=== PATIENT | female | born 2000 | race Caucasian/White ===

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

== ENCOUNTER 2022-07-29 15:18 | Emergency (ER) | payer BC, SELFPAY ==
[2022-07-29 15:48] VITALS: BP 128/70; PULSE 108; RESP 14; TEMP 36.9; O2SAT 100
--- NOTE | 2022-07-29 16:56 | ED.URI ---
HPI - URI/Sore Throat General Chief Complaint: Upper Respiratory Infection Stated Complaint: Sore Throat/Body Aches Time Seen by Provider: 07/29/22 16:56 Source: patient and RN notes reviewed Mode of arrival: ambulatory Limitations: no limitations History of Present Illness HPI Narrative: 22-year-old female presents with concern for a 2 day history of body aches, sore throat, cough, congestion. She reports she has been around people with similar symptoms. She has taken plain Mucinex without relief. MD elicited complaint: cough and sore throat Related Data Home Medications Medication Instructions Recorded Confirmed norethindrone 1 mg-ethinyl 1 tablet PO DAILY 07/20/20 estradiol 20 mcg (21)-iron 75 mg (7) tablet (Loestrin Fe 09/19 (28-Day)) Allergies Allergy/AdvReac Type Severity Reaction Status Date / Time No Known Allergies Allergy Verified 07/20/20 12:45 Review of Systems Review of Systems: CONSTITUTIONAL: Reports malaise, chills, sweats EYES: Denies visual changes, redness, or discharge. ENT: Reports rhinorrhea, congestion, sore throat. Denies sinus pain, otalgia CARDIOVASCULAR: Denies chest pain, palpitations, or edema. RESPIRATORY: Reports cough. Denies dyspnea. GASTROINTESTINAL: Denies abdominal pain, nausea, vomiting, diarrhea SKIN: Denies rash or itching. MUSCULOSKELETAL: Reports myalgia. NEUROLOGIC: Denies headache. All systems reviewed & are unremarkable except as noted in HPI and below PMFSH Past Medical History Medical History (Updated 07/29/22 @ 17:02 by Silvia Sage NP) Acne Depression Ganglion cyst of dorsum of left wrist Surgical History Surgical History No pertinent past surgical history Family History Family History (Updated 07/20/20 @ 12:48 by Pratibha Marie CMA) Other Breast cancer Father Leukemia Grandparent Cerebrovascular accident Malignant neoplasm of prostate Social History Social History Smoking status: Never smoker Alcohol intake: never Substance use: never Gender identity (if verbalized by the patient): Female Comments At time of signature, agree with nursing past medical, surgical, social and family history. There is no relevant family history pertinent to the presenting complaint Exam Narrative: GENERAL: Well-appearing, well-nourished, and in no acute distress. HEAD: Normocephalic EYES: PERRLA, conjunctivae clear ENT: Nares clear, turbinates edematous and erythematous, clear discharge. Mucous membranes moist. TM pearly reed with dull light reflex bilaterally; no tragal tenderness. Oropharynx not erythematous without lesions. Tonsils not enlarged and without exudate, no drooling, no hoarseness, no trismus, uvula midline. NECK: Supple. No lymphadenopathy CHEST: Clear to auscultation, breath sounds equal. No wheezing, rhonchi, rales, or stridor. No respiratory distress, speaks in full sentences. HEART: Regular rate and rhythm. No murmur heard. SKIN: Warm, dry, no rash. NEURO: Alert and oriented x3. PSYCH: Normal mood and affect Course Course Emergency Course: Patient is aware of diagnosis, understands and agrees to treatment plan. Anticipatory guidance given. Patient agrees to follow-up as directed and is aware of reasons to seek care at the emergency department. Portions of this record may have been created with voice recognition software Level of Care: Express Care Visit Vital Signs Vital signs: Vital Signs Temperature 98.5 F 07/29/22 15:48 Pulse Rate 108 H 07/29/22 15:48 Respiratory Rate 14 07/29/22 15:48 Blood Pressure 128/70 07/29/22 15:48 Pulse Oximetry 100 07/29/22 15:48 Oxygen Delivery Room Air 07/29/22 15:48 Temperature 98.5 F 07/29/22 15:48 Pulse Rate 108 H 07/29/22 15:48 Respiratory Rate 14 07/29/22 15:48 Blood Pressure 128/70 07/29/22 15:48 Pulse Oximetry 1
== END 2022-07-29 17:07 | disposition home or self-care (01) ==
PROVIDERS: Emergency Provider Nurse Practitioner
DX: J11.1 Influenza due to unidentified influenza virus with other respiratory manifestations (principal)
CPT/HCPCS: 87804; 99213; G0463

== ENCOUNTER 2023-10-08 16:40 | Outpatient (CLI) | payer BC, SELFPAY ==
[2023-10-08 16:58] LABS: Hematocrit 37.8 % (35.0-49.0); Hemoglobin 12.4 g/dL (12.0-15.0); Mean Corpuscular HGB Conc 32.8 g/dL (32.0-36.0); Mean Corpuscular Volume 88.3 fL (78.0-102.0); Platelet Count Result 141 K/mm3 (150-420); Red Blood Count 4.28 M/mm3 (4.20-5.40); Red Cell Distribution Width 12.3 % (11.6-14.4); White Blood Count 9.5 K/mm3 (4.8-10.8)
[2023-10-08 17:21] LABS: Band Neutrophils Percent 0 % (0-6); Eosinophils Absolute Manual 0.09 K/mm3 (0.02-0.5); Eosinophils Percent Manual 1 % (1-6); Lymphocytes Absolute Manual 6.36 K/mm3 (1.1-4.5); Lymphocytes Percent Manual 67 % (18-44); Monocytes Absolute Manual 0.66 K/mm3 (0.1-0.90); Monocytes Percent Manual 7 % (3-9); Neutrophils Absolute Manual 2.37 K/mm3 (1.7-7.2); Neutrophils Percent Manual 25 % (46-73); Total Cells Counted 100
[2023-10-08 17:22] LABS: Atypical Lymphocytes Present
[2023-10-08 17:58] LABS: Erythrocyte Sedimentation Rate 10 mm/hr (0-15)
[2023-10-08 18:10] LABS: Alanine Aminotransferase 148 U/L (14-59); Albumin Level 3.8 g/dL (3.4-5.0); Alkaline Phosphatase 73 U/L (46-116); Anion Gap 11 mmol/L (8-16); Aspartate Amino Transferase 58 U/L (15-37); Bilirubin,Total 0.4 mg/dL (0.00-1.00); Blood Urea Nitrogen 13 mg/dL (7-18); Calcium 8.6 mg/dL (8.5-10.1); Carbon Dioxide 27 mmol/L (21-32); Chloride 104 mmol/L (98-108); Estimated Glomerular Filt Rate > 60; Glucose 111 mg/dL (70-99); Lactate Dehydrogenase 238 U/L (81-234); Osmolality Calculated 295 mOsm/kg (285-295); Potassium 4.1 mmol/L (3.5-5.1); Sodium 142 mmol/L (136-145); Total Protein 6.6 g/dL (6.4-8.2)
[2023-10-12 14:36] LABS: EBV Nuclear Ab Antibody <18.00 U/mL (<18.00); EBV Nuclear Ab Interpretation Current (Acute)
== END 2023-10-08 16:41 | disposition home or self-care (01) ==
LOC: CHSLAB 16:42
PROVIDERS: PCP Family Medicine; Visit Provider Family Medicine
DX: R53.83 Other fatigue (principal); J02.9 Acute pharyngitis, unspecified; R59.1 Generalized enlarged lymph nodes
CPT/HCPCS: 36415; 80053; 83615; 85025; 85652; 86664; 86665

== ENCOUNTER 2023-12-04 16:24 | Outpatient (CLI) | payer BC, SELFPAY ==
[2023-12-04 17:04] LABS: Beta HCG Quantitative < 1.00 mIU/mL (0-6)
== END 2023-12-04 16:25 | disposition home or self-care (01) ==
LOC: CHSLAB 16:26
PROVIDERS: PCP Family Medicine; Visit Provider Physician Assistant
DX: N91.2 Amenorrhea, unspecified (principal)
CPT/HCPCS: 36415; 84702

== ENCOUNTER 2024-12-12 15:16 | Outpatient (CLI) | payer BC, SELFPAY ==
[2024-12-12 16:19] LABS: Thyroid Stimulating Hormone Reflex 2.93 u/IU/mL (0.36-3.74)
[2024-12-12 16:24] LABS: SPREG INTERNAL CONTROL Positive; Serum Qual hCG Positive
--- OUTSIDE RECORDS SUMMARY | 2024-12-12 17:16 | XMS_ITS | Referral Summary ---
Author Organization [address] Address [address] [place] [address] Care Team Providers Care Rpg Programmer Analyst Name Role Phone No, Physician Primary Care Provider [phone] Allergies No known active allergies Medications No known medications Active Problems No known active problems Social History Tobacco Use Types Packs/Day Years Used Date Smoking Tobacco: Never Smokeless Tobacco: Never Personal Safety Answer Date Recorded Getting School Help Needed Not on file 10/31 Comments Unknown Sex and Gender Information Value Date Recorded Sex Assigned at Not on file Legal Sex Female 3:23 PM CDT Gender Identity Not on file Sexual Orientation Not on file Last Filed Vital Signs Vital Sign Reading Time Taken Comments Blood Pressure 100/64 01/24/2022 8:19 AM CDT Pulse 84 01/24/2022 8:19 AM CDT Temperature 36.8 C (98.2 F) 01/24/2022 8:19 AM CDT Respiratory Rate 17 01/24/2022 8:19 AM CDT Oxygen Saturation 98% 01/24/2022 8:19 AM CDT Inhaled Oxygen Concentration - - Weight 63.5 kg (140 lb) 01/24/2022 8:19 AM CDT Height 177.2 cm (5' 9.75 ) 01/24/2022 8:19 AM CD T Body Mass Index 20.23 01/24/2022 8:19 AM CDT Plan of Treatment Not on file Insurance [employer] OOS [employer] OOS Care Teams Rpg Programmer Analyst Relationship Specialty Start Date End Date No, Physician PCP - General 01/23/22
--- OUTSIDE RECORDS SUMMARY | 2024-12-12 17:16 | XMS_ITS | Clinical Summary ---
Author Organization [address] Address [address] [place] [place] [address] Care Team Providers Care Candy Rolling Machine Operator Name Role Phone No, Physician Primary Care Provider [phone] Allergies No known active allergies Medications No known medications Active Problems No known active problems Surgical History Surgery Date Site/Laterality Comments WRIST SURGERY Right cyst removed Family History Medical History Relation Name Comments Leukemia Father Lung cancer Maternal Grandfather Skin cancer Mother Breast cancer Mother's Sister Prostate cancer Paternal Grandfather Relation Name Status Comments Father Maternal Grandfather Mother Alive Mother's Sister Paternal Grandfather Social History Tobacco Use Types Packs/Day Years Used Date Smoking Tobacco: Never Smokeless Tobacco: Never Personal Safety Answer Date Recorded Getting School Help Needed Not on file 10/31 Comments Unknown Sex and Gender Information Value Date Recorded Sex Assigned at Not on file Legal Sex Female 3:23 PM CDT Gender Identity Not on file Sexual Orientation Not on file Obstetrics History Last Filed Vital Signs Vital Sign Reading [...] 01/24/2022 8:19 AM CDT Plan of Treatment Health Maintenance Due Date Last Done Comments Cervical Cancer Screening 2001 Depression Screening 2001 Hepatitis C Screening 2001 DTaP/Tdap/Td Vaccine (1 - Tdap) 2012 Varicella Vaccines (1 of 2 - 13+ 2-dose series) 2014 HPV Vaccines (1 - 3-dose series) 2016 Meningococcal B Vaccine (1 o f 2 - Standard) 2017 Hepatitis B Screening 2019 Regular Well Visit/Exam 18-64 2019 Influenza Vaccine (#1) 2024 Pneumococcal vaccine <65 Aged Out No longer eligible based on patient's age to complete this topic Insurance [employer] O[employer] O[employer] Care Teams Candy Rolling Machine Operator Relationship Specialty Start Date End Date No, Physician PCP - General 01/23/22
== END 2024-12-12 15:17 | disposition home or self-care (01) ==
LOC: CHSLAB 15:17
PROVIDERS: PCP Family Medicine; Visit Provider Family Medicine
DX: N92.1 Excessive and frequent menstruation with irregular cycle (principal); R11.0 Nausea; Z32.01 Encounter for pregnancy test, result positive
CPT/HCPCS: 36415; 84443; 84702; 84703

== ENCOUNTER 2024-12-14 16:35 | Outpatient (CLI) | payer BC, SELFPAY ==
--- OUTSIDE RECORDS SUMMARY | 2024-12-14 16:55 | XMS_ITS | Clinical Summary ---
Author Organization [address] Address [address] [facility] [place] [address] Care Team Providers Care Leveling Machine Operator Name Role Phone No, Physician Primary Care Provider [phone] Allergies No known active allergies Medications No [...] patient's age to complete this topic Insurance [employer] O[employer] O[employer] Care Teams Leveling Machine Operator Relationship Specialty Start Date End Date No, Physician PCP - General 01/23/22
--- OUTSIDE RECORDS SUMMARY | 2024-12-14 16:55 | XMS_ITS | Referral Summary ---
Author Organization [address] Address [address] [place] [address] Care Team Providers Care Steel Estimator Name Role Phone No, Physician Primary Care Provider [phone] Allergies No known active allergies Medications No [...] Plan of Treatment Not on file Insurance [employer] OOS [employer] OOS Care Teams Steel Estimator Relationship Specialty Start Date End Date No, Physician PCP - General 01/23/22
== END 2024-12-14 16:36 | disposition home or self-care (01) ==
PROVIDERS: PCP Student in an Organized Health Care Education/Training Program; Visit Provider Student in an Organized Health Care Education/Training Program
DX: Z32.01 Encounter for pregnancy test, result positive (principal)
CPT/HCPCS: 36415; 84702

== ENCOUNTER 2025-01-24 09:02 | Emergency (ER) | payer BC, SELFPAY ==
--- NOTE | ~2025-01-24 | US_ITS ---
EXAMINATION: US OB <= 14 weeks fetus DATE: 01/24/2025 11:01 INDICATION: Lower back and lower abdominal cramping TECHNIQUE: Real-time pelvic ultrasound utilizing both a transvaginal and transabdominal probe was pe rformed. The interpreting radiologist was not present for the study. COMPARISON: None. FINDINGS: The uterus measures 14.4 x 6.6 x 6.8 cm. There is an intrauterine gestational sac.A single ras e is identified. The crown rump length measures 3.2 cm, which correlates with an estimated gestationa l age of 10 weeks and 1 days. heart motion is identified measuring 179 beats per minute (bpm) b y M-mode Doppler. The right ovary measures 3.8 x 1.8 x 2.3 cm. The left ovary measures 4.0 x 1.8 x 2.4 cm. Vascular geovanna w including both venous and arterial waveforms is identified in both ovaries on color Doppler. There is no free fluid in the pelvis. IMPRESSION: 1. Single living fetus with heart of 179 bpm. 2. Gestational age by ultrasound of 10 weeks 1 day(s) +/- 6 day(s) with ultrasound estimated date of delivery ([facility]) of 08/21/2025. Reviewed, dictated and finalized at location A. IMPRESSION: 1. Single living fetus with heart of 179 bpm. 2. Gestational age by ultrasound of 10 weeks 1 day(s) +/- 6 day(s) with ultras ound estimated date of delivery ([facility]) of 08/21/2025.
--- OUTSIDE RECORDS SUMMARY | 2025-01-24 09:05 | XMS_ITS | Referral Summary ---
Author Organization [address] Address [address] [place] [address] Care Team Providers Care Latex Spooler Name Role Phone No, Physician Primary Care Provider [phone] Allergies No known active allergies Medications No [...] 8:19 AM CDT Height 177.2 cm (5' 9.75) 01/24/2022 8:19 AM CD T Body Mass Index 20.23 01/24/2022 8:19 AM CDT Plan of Treatment Not on file Insurance [employer] O[employer] O[employer] Care Teams Latex Spooler Relationship Specialty Start Date End Date No, Physician PCP - General 01/23/22
--- OUTSIDE RECORDS SUMMARY | 2025-01-24 09:05 | XMS_ITS | Clinical Summary ---
Author Organization [address] Address [address] [facility] [place] [address] Care Team Providers Care Care Management Specialist Name Role Phone No, Physician Primary Care Provider Allergies No known active allergies Medications No [...] Plan of Treatment Not on file Insurance [employer] ACCESS OOS [employer] ACCESS OOS Care Teams Care Management Specialist Relationship Specialty Start Date End Date No, Physician PCP - General 01/23/22
[2025-01-24 09:11] VITALS: BP 127/73; PULSE 100; RESP 16; TEMP 37.2; O2SAT 100
--- OUTSIDE RECORDS SUMMARY | 2025-01-24 09:46 | XMS_ITS | Referral Summary ---
Author Organization [address] Address [address] [place] [address] Care Team Providers Care Manager Agricultural Name Role Phone No, Physician Primary Care Provider [phone] Allergies No known active allergies Medications No [...] Plan of Treatment Not on file Insurance [employer] Care Teams Manager Agricultural Relationship Specialty Start Date End Date No, Physician PCP - General 01/23/22
--- OUTSIDE RECORDS SUMMARY | 2025-01-24 09:46 | XMS_ITS | Clinical Summary ---
Author Organization [address] Address [address] [facility] [place] [address] Care Team Providers Care Butcher Apprentice Name Role Phone No, Physician Primary Care Provider [phone] Allergies No known active allergies Medications No [...] Plan of Treatment Not on file Insurance [email or web address] ACCESS OOS [email or web address] ACCESS OOS Care Teams Butcher Apprentice Relationship Specialty Start Date End Date No, Physician PCP - General 01/23/22
--- OUTSIDE RECORDS SUMMARY | 2025-01-24 09:46 | XMS_ITS | Data Portability ---
Author Organization [facility] [place] Address [address] [place] [address] Care Team Providers Care Assembler For Puller Over Machine Name Role Phone SHERYL DICKSON Primary Care Provider Assessment Encounter Date Assessment Date Assessment LastModified by Organization Details LastModified Time 01/13/2025 01/13/2025 Annual gynecological exam performed. Patient will come back in a year unless there are new symptoms. Suggest Calcium with Vitamin D if not eating in diet. Patient advised to get annual flu shot. Recommend yearly physicals and preform monthly breast exams. Genetic testing is available for patients with family history of cancer. Engage in safe sexual practices, use condoms. Encouraged to have daily exercise. Avoid tobacco and illicit drugs, moderation of alcohol. If BMI greater than 25 dietary consult advised. If you have any questions please call or email. Not available 01/13/2025 12:37:21 Plan of Treatment Reminders Order Date Submit Date Provider Last Modified By Organization Details Last Modified Time Details Appointments U/S OB FIRST LOOK 2024 10:00A M ULTRASOUND Not available Not available Not available OB NEW 2024 10:45A M JOLIE TOMLINSON MD Not available Not available Not available Lab None record ed. Referral None record ed. Procedures None record ed. Surgeries None record ed. Imaging None record ed. Medication Orders None record ed. Patient TargetsNo targets recorded. Patient InstructionsNo instructions recorded. Reason for Referral None Reported. Results Created Date Observation Date Name Description Value Unit Range Abnormal Flag Note LastModifiedBy Organization Detail LastModifiedTime 01/14/2001/13/2025 US, obste tric, 1st trime ster No observ ation record ed. [email or web address], [place], [address], 01/16/2025 22:51:50 Result Notes None recorded. Problems Name Problem SNOMED Code Status Onset Date Resolution Date Notes Provider Name and Address Organization Details Recorded Time Anxiety 85133358 Active 025 Kristen Ruffin [facility], [facility] 01/13/2025 11:01:06 Problem Notes None recorded. Procedures Surgical History Date Name Laterality Status Provider Name and Address Organization Details Recorded Time 5 Date of Last Pap Smear completed Kristen Ruffin [facility] 01/13/2025 11:01:13 7 operative procedure on wrist completed Kristen Ruffin [facility] 01/13/2025 11:06:02 Imaging Results None recorded. Procedure Notes None recorded. Medical Equipment None Reported. Allergies No known drug allergies Medications Name Sig Start Date Stop Date Status Note LastModified by Organization Details LastModified Time buspirone 5 mg tablet TAKE 1 TO 2 TABLETS BY MOUTH THREE TIMES DAILY NEEDED FOR STRESS 01/13 completed Not Available Not Available Not Available triamcinolo ne acetonide 0.1 % topical cream APPLY TOPICALLY TO THE AFFECTED AREA TWICE DAILY NEEDED FOR IRRITATIO N 01/13 completed Not Available Not Available Not Available nortriptyli ne 10 mg capsule TAKE 1 CAPSULE BY MOUTH EVERY NIGHT AT BEDTIME FOR ABDOMINAL CRAMPS 01/13 completed Not Available Not Available Not Available clindamycin 1 % lotion APPLY TO THE AFFECTED AREA OF THE LEGS ONE TO TWO TIMES DAILY UNTIL CLEAR. THEN USE NEEDED FOR FLARES 01/13 completed Not Available Not Available Not Available Vitals Date Recorded Body height Body mass index (BMI) Body weight Systolic And Diastolic Provider Name and Address Organization Details Last Updated DateTime 01/13/2025 170.18 cm 23.5 kg/m2 69413.86 g 121/78 mm[Hg] Kristen Ruffin [facility] 01/13/2025 11:00:28 Social History Question Answer Notes LastModified by Organizat ion Details LastModified Time Tobacco Smoking Status Never Smoker Kristen Ruffin [facility] 01/13/2025 11:05:22 If You Are , What Was Your Level Of Alcohol Consumption Prior To ? Occasional [email or web address] Information not available 01/13/2025 Are You Blind Or Do You Have Difficulty Seeing? No Information n ot available 01/13/2025 What Is Your Level Of Caffeine Consumption? Occasional [email or web address] Information not available 01/13/2025 In The 14 Days Before Symptom Onset, Have You Had Close Contact With A Laboratory-confirm ed COVID-19 While That Case Was Ill? No [email or web address] Information n ot available 01/13/2025 In The 14 Days Before Symptom Onset, Have You Had Close Contact With A Person Who Is Under Investigation For COVID-19 While That Person Was Ill? No [email or web address] Information not available 01/13/2025 Have You Been To An Area Known To Be High Risk For COVID-19? No [email or web address] Information not available 01/13/2025 Are You Deaf Or Do You Have Serious Difficulty Hearing? No [email or web address] Information not available 01/13/2025 Do You Have Smoke And Carbon Monoxide Detectors In Your Home? Yes [email or web address] Information not available 01/13/2025 Do You Use Sunscreen Routinely? Yes [email or web address] Information not available 01/13/2025 Has Tobacco Cessation Counseling Been Provided? No [email or web address] Information not available 01/13/2025 Have You Used IV Drugs? No [email or web address] Information not available 01/13/2025 Do You Have Difficulty Walking Or Climbing Stairs? No [email or web address] Information not available 01/13/2025 Sex: Unknown Functional Status Question Answer Note LastModified by Organizat ion Details LastModified Time Do you use any illicit or recreational drugs? No [email or web address] Information not available 01/13/2025 Do you or have you ever used any other forms of tobacco or nicotine? Yes [email or web address] Information not available 01/13/2025 What is your level of alcohol consumption? None [email or web address] Information not available 01/13/2025 Are you able to walk? YESWOREST [email or web address] Information not available 01/13/2025 Are you able to care for yourself? Yes [email or web address] Information not available 01/13/2025 Do you have difficulty dressing or bathing? No [email or web address] Information not available 01/13/2025 Do you or have you ever used e-cigarettes or vape? Former user of electronic cigarettes [email or web address] Information not available 01/13/2025 Mental Status None recorded. Family History Relationship Description Onset Age of this Age Resolved Age Notes LastModified by Organization Details LastModified Time Unspecified Relation Family history unknown Not available 01/13 11:00:39 Paternal Grandfather Malignant neoplasm of prostate Not available 01/13 11:03:27 Maternal Grandfather Malignant neoplasm of lung [email or web address] Not available 01/13 11:03:40 Maternal Grandmother Malignant tumor of pancreas [email or web address] Not available 01/13 11:04:11 Maternal Aunt Malignant tumor of breast [email or web address] Not available 01/13 11:04:28 Father Leukemia [email or web address] Not availab le 01/13/2025 11:04:39 Mother Diabetes mellitus [email or web address] Not available 01/13 11:04:57 Medical History Condition Response Allergies (Food, seasonal, environmental ) N Other N Breast Cancer N Drug/Latex Allergies/Reactions N Blood Transfusion N Dermatologic Disorders N Lung Disease N Defects or Inherited Disease N Breast Problem N Gestational Diabetes N Hematologic disorders N Anesthesia Complications N History of STI N Deep Vein Thrombosis N Polycystic ovary syndrome N Anxiety Disorder Y Autoimmune disease N Arthritis N Infertility N Polyps N Acid Reflux (GERD) N History of abnormal pap N Cancer N Stroke N Varicosities N Neurologic/Epilepsy N Endometriosis N High Cholesterol N Headaches N Fibromyalgia N Kidney Disease N Heart Problems N Kidney or Bladder Problems N Thyroid Problems N GI Problems N Eating Disorder N Anemia N Art (IVF or FET) N Psychiatric Illness N Ovarian Cancer N Diabetes N Pulmonary (TB, Asthma) N Hepatitis/Liver Disease N No Past Medical History N Eczema N Urinary Tract Infection N Abuse/Domestic Violence N Asthma N Trauma/Violence N Depression/ depression N Heart Disease N Pre-Eclampsia N Hypertension N Osteoporosis N Thrombophilias N Gynecological History Statement/Question Response Abnormal Pap N Date of Last Mammogram Date of LMP 11/14/2024 STIs/STDs N Was last menstrual period normal Y Duration of Flow (days) 5 Current Control Method Date of Last Colonoscopy Frequency of Cycle (Q days) 27 Date of DEXA bone scan Date of Last Pap Smear 01/13/2025 LMP Definite Obstetrics History GPAL:G 0 P 0 0 0 0 Type Value Living 0 Total 0 Past Encounters Encounter ID Performer Location Encounter Start Date Encounter Closed Date Diagnosis/Indication Diagnosis SNOMED-CT Code Diagnosis ICD10 Code Diagnosis Note [id number] Hayden Steele MD [place] [address] [address] 01/13/2025 09:39:53 01/13/2025 10:18:45 [id number] Isabelle Be CNM [place] [address] [address] 01/13/2025 09:41:07 01/13/2025 12:58:36 Amenorrhea 03297867 N91.2 reviewed education and precaution fátima for gummy PNVunisom and b6 for nauseapap not collected, reviewed usplan 12 week new ob and first look Gynecologi c examination 02296702 Z01.419 Health Concerns Section Related Observation LastModified by Organization Detai ls LastModified Time None Recorded Concern Status LastModified by Organization Details LastModified Time None Recorded Advance Directives Directive None Recorded Payers Encounter Date Sequence Insurance Name Policy Number Policy Marie Covered Member ID Marie Member ID Guarantor Name 01/13/2025 1 [employer] (PPO) Kya [id number] Gabby Jose 01/13/2025 1 [employer] (PPO) Kya Angulo [id number] Gabby Jose Notes Date Note Type Note Provider Name and Address Organization Details Recorded Time 01/13/2025 text/html Annual GYNReport ed bypatient.History: no gynecologic complaints Menstrual cycle:Normal menses Urinary symptoms:No hematuria; No incontinence Vulva:No genital lesion Vagina:Normal vaginal dischargeNotes:dis cussed s/s of , tender breasts, nausea, heartburn Isabelle Be CNM [address], [place], [address], [facility] 01/13/2025 12:39:07 OBGyn Episode No OBEpisode recorded.
--- NOTE | 2025-01-24 09:51 | ED_ITS ---
HPI - Back Pain/Injury General Chief Complaint: Back Pain/Injury Stated Complaint: 10 wks preg, back/abd pain Time Seen by Provider: 01/24/25 09:05 Source: patient Mode of arrival: ambulatory Limitations: no limitations History of Present Illness HPI Narrative: Patient is a 24-year-old female who presents the ED with report of lower back pain. Patient reports she is currently 10 weeks gestation, , confirmed IUP. She reports since Thursday, she has been having intermittent pain throughout her lower back. She denies any heavy lifting or strenuous activity, but does note that she has had morning sickness in has had several episodes of very forceful vomiting over the past couple of days. She also reports having some intermittent lower abdominal cramping. Denies vaginal bleeding or discharge, dysuria, hematuria. Denies fevers. No numbness or weakness. Denies incontinence. Has not taken anything for her symptoms. Was referred to the ED today for evaluation by her OBGYN. She sees Isabelle Be with [facility]. Related Data Home Medications ?Medication ?Instructions ?Recorded ?Confirmed ?Last Taken ?Type norethindrone 1 mg-ethinyl 1 tablet PO DAILY 07/20/20 09/12/24 Unknown History estradiol 20 mcg (21)-iron 75 mg (7) tablet (Loestrin Fe 09/19 (28-Day)) Allergies Allergy/AdvReac Type Severity Reaction Status Date / Time No Known Allergies Allergy Verified 09/13/24 16:14 Review of Systems Review of Systems: All systems reviewed & are unremarkable except as noted in HPI. All systems reviewed & are unremarkable except as noted in HPI and below PMFSH Past Medical History Medical History Anxiety Depression Acne Ganglion cyst of dorsum of left wrist Surgical History Surgical History No pertinent past surgical history Family History Family History Other Breast cancer Father Leukemia Grandparent Cerebrovascular accident Malignant neoplasm of prostate Social History Social History Smoking status: Never smoker Second hand tobacco smoke exposure: No Alcohol intake: never Substance use: never Substance use type: does not use Do You Feel Safe in your Home?: Yes Lack of Transportation: No Lack of Food: Never True Current Housing: I Have Housing Concerned About Future Housing: No Difficulty Paying Gas/Electric Bills: No Difficulty Paying for Meds: No Currently Unemployed: No Education: High School Diploma/GED Living arrangements: with family Occupation/Education: 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 HEAD: Normocephalic, atraumatic. RESPIRATORY: Airway patent, respirations nonlabored. Clear to auscultation bilaterally, no rales, rhonchi, wheezing. CARDIOVASCULAR: Regular rate and rhythm without murmurs, rubs, or gallops. ABDOMINAL: Soft, no appreciable tenderness, nondistended. Normoactive BS. MUSCULOSKELETAL: Moves all extremities. No gross deformities. No significant reproducible tenderness throughout lower back, midline lumbar spine. No palpable bony deformities or step-offs. Sensation intact. SKIN: Warm, dry, normal color. NEURO: A&O X3. Speech clear. PSYCHIATRIC: Appropriate mood and affect. Normal interaction. Course Vital Signs Vital signs: Vital Signs Temperature 99 F 01/24/25 09:11 Pulse Rate 100 01/24/25 09:11 Respiratory Rate 16 01/24/25 09:11 Blood Pressure 127/73 01/24/25 09:11 Pulse Oximetry 100 01/24/25 09:11 Oxygen Delivery Room Air 01/24/25 09:11 Temperature 99 F 01/24/25 09:11 Pulse Rate 84 01/24/25 11:57 Respiratory Rate 16 01/24/25 11:57 Blood Pressure 118/65 01/24/25 11:57 Pulse Oximetry 100 01/24/25 11:57 Oxygen Delivery Room Air 01/24/25 09:11 MDM - Back Pain/Injury MDM Narrative Medical decision making narrative: Patient presented to ED with lower back/lower abdominal discomfort, intermittent over the last couple days. Does admit to forceful vomiting and having back pain at that time. Currently 10 weeks gestation. , confirmed IUP. Denying vaginal bleeding. Vital signs are stable. Patient in no acute distress. Will give fluids, Tylenol, lidocaine patch. UA without signs of infection. Does show 1+ urine bacteria but occasional squamous cells. Likely contamination. Sent for culture. Patient denies any other urinary complaints. Ob ultrasound was obtained and showing a live IUP, good heart tones. Discussed lab and imaging findings. Discussed likelihood of lumbar strain. Feel she is safe for discharge home. Advised to continue Tylenol, lidocaine patches as needed. Recommended close follow-up with OBGYN for further evaluation. Patient in agreement with plan. She feels very reassured by ultrasound today. Discussed strict return precautions. Patient discharged in s table condition. Medical Records Attestation: I reviewed the patient's medical records. Lab Data Attestation: I reviewed the patient's lab results. Labs: Lab Results 01/24/25 Range/Units 10:30 Beta HCG, Quant 049412.00 mIU/ML Urine Color Yellow (Yellow) Urine Appearance Clear (Clear) Urine pH 7.0 (5.0-9.0) Ur Specific [place] 1.022 (1.001-1.035) Urine Protein Trace (Negative) mg/dL Urine Glucose (UA) Negative (Negative) mg/dL Urine Ketones Negative (Negative) mg/dL Ur Blood (Man) Negative (Negative) Urine Nitrate Negative (Negative) Urine Bilirubin Negative (Negative) Urine Urobilinogen 1.0 (<2.0) mg/dL Leukocyte Esterase Rfl 1+ H (Negative) DEWAYNE/UL Urine RBC 0-2 (0-2) /hpf Urine WBC 0-5 (0-3) /hpf Ur Squamous Epith Cells Occasional (Few) /hpf Urine Bacteria 1+ H /hpf Urine Casts 0-2 Urine Mucus Present /lpf Imaging Data Attestation: I personally reviewed and interpreted this imaging study as follows: Radiologist's impression: ITS Impressions Ultrasound 01/24/25 11:06 IMPRESSION: 1. Single living fetus with heart of 179 bpm. 2. Gestational age by ultrasound of 10 weeks 1 day(s) +/- 6 day(s) with ultrasound estimated date of delivery ([facility]) of 08/21/2025. Discharge Plan Discharge Clinical Impression: 10 weeks gestation of Strain of lumbar region Qualifiers: Encounter type: initial encounter Qualified Code(s): S39.012A - Strain of muscle, fascia and tendon of lower back, initial encounter Patient Disposition: Home Condition: Stable Instructions: Antibiotic Form, Acute Low Back Pain (ED), at 7 to 10 Weeks (ED), at 11 to 14 Weeks (ED) Additional Instructions: Continue Tylenol as needed for pain. You may use ice/low heat, lidocaine patches to area of pain. Continue to follow-up with your OBGYN for further evaluation. Return to the ED if you experience worsening or severe pain, new injury, numbness in groin or legs, going to the bathroom without meaning to, unable to keep down food or drink, vaginal bleeding, severe abdominal pain, or any other symptoms of concern. Patient Language: Slovenian Prescriptions: New lidocaine 5 % adhesive patch,medicated 1 patch topical DAILY Qty: 15 0RF Rx Instructions: leave on most painful area for up to 12 hrs No Action nortriptyline 10 mg capsule 10 mg PO QHS Qty: 30 2RF buspirone 5 mg tablet See Rx Instructions PO TID PRN (Reason: stress) Qty: 90 0RF Rx Instructions: Take 1-2 tablets orally three times a day PRN; triamcinolone acetonide 0.1 % cream 1 applic topical BID PRN (Reason: irritation) Qty: 80 0RF norethindrone-e.estradiol-iron [Loestrin Fe 09/19 (28-Day)] 1 mg-20 mcg (21)/75 mg (7) tablet 1 tablet PO DAILY lidocaine HCl 2 % solution 1 applic mucous membrane TID PRN (Reason: pain) Qty: 100 0RF hydrocortisone acetate [Anusol-HC] 25 mg suppository 25 mg RECTAL QHS Qty: 24 0RF Follow-up/Referrals: Isabelle Be CNM [Primary Care Provider] - Time of Disposition: 11:47
[2025-01-24] MEDS: ACETAMINOPHEN 500 MG TABLET 1000 MG PO (10:27)
[2025-01-24] MEDS: LIDOCAINE 5% PATCH 1 PATCH TRANSDERM (10:27)
[2025-01-24 11:01] LABS: Add Urine Microscopic? YES; Appearance Urine Clear (Clear); Bacteria Urine 1+ /hpf; Bilirubin Urine Negative (Negative); Blood Urine Negative (Negative); Color Urine Yellow (Yellow); Glucose Urine UA Negative (Negative); Ketones Urine Negative (Negative); Leukocyte Esterase Ur 1+ LEU/UL (Negative); Mucus Urine Present /lpf; Nitrate Urine Negative (Negative); Non Pathogenic Casts 0-2; Protein Urine Trace mg/dL (Negative); RBC Urine 0-2 /hpf (0-2); Specific Grav Ur 1.022 (1.001-1.035); Squamous Epithelial Cell Urine Occasional /hpf (Few); WBC Urine 0-5 /hpf (0-3)
[2025-01-24] MEDS: SODIUM CHLORIDE 0.9% IV 1,000 ML 999 ML IV CONT (11:28)
[2025-01-24 11:57] VITALS: BP 118/65; PULSE 84; RESP 16; O2SAT 100
== END 2025-01-24 11:58 | disposition home or self-care (01) ==
PROVIDERS: Emergency Provider Physician Assistant; PCP Advanced Practice Midwife
DX: S39.012A Strain of muscle, fascia and tendon of lower back, initial encounter (principal); O26.891 Other specified pregnancy related conditions, first trimester; Z3A.10 10 weeks gestation of pregnancy
CPT/HCPCS: 36415; 76801; 81001; 84702; 87086; 99284; A9270; J7030

== ENCOUNTER 2025-02-06 12:45 | Emergency (ER) | payer BC, SELFPAY ==
[2025-02-06 12:53] VITALS: BP 121/76; PULSE 79; RESP 14; TEMP 36.7; O2SAT 98
--- OUTSIDE RECORDS SUMMARY | 2025-02-06 13:53 | XMS_ITS | Referral Summary ---
Author Organization [address] Address [address] [place] [address] Care Team Providers Care Water Pump Installer Name Role Phone No, Physician Primary Care Provider [phone] Allergies No known active allergies Medications No [...] Plan of Treatment Not on file Insurance [employer]Reader OOS [employer] OOS Care Teams Water Pump Installer Relationship Specialty Start Date End Date No, Physician PCP - General 01/23/22
--- OUTSIDE RECORDS SUMMARY | 2025-02-06 13:53 | XMS_ITS | Clinical Summary ---
Author Organization [address] Address [address] [facility] [address] Care Team Providers Care Manager Managing Name Role Phone No, Physician Primary Care [...] Plan of Treatment Not on file Insurance [employer]WithMe ACCESS OOS [employer]WithMe ACCESS OOS Care Teams Manager Managing Relationship Specialty Start Date End Date No, Physician PCP - General 01/23/22
--- OUTSIDE RECORDS SUMMARY | 2025-02-06 13:53 | XMS_ITS | Data Portability ---
Author Organization [facility] [place] Address [address] [place] [address] Care Team Providers Care Licensed Mortgage Loan Officer Name Role Phone SHERYL DICKSON Primary Care Provider [phone] Assessment Encounter Date Assessment Date Assessment LastModified [...] observ ation record ed. [email or web address], [place], [address], 01/16/2025 22:51:50 01/25/20 25 01/24/2025 [place], obste tric, follo w-up No observ ation record ed. [address], [place], [address], 01/26/2025 11:35:53 Result Notes None recorded. Problems Name Problem SNOMED Code Status Onset Date Resolution Date Notes Provider Name and Address Organization Details Recorded Time Anxiety 08888043 Active 025 Kristen Ruffin [facility] 01/13/2025 11:01:06 Problem Notes None recorded. Procedures Surgical History Date Name Laterality Status Provider Name and Address Organization Details Recorded Time 5 Date of Last Pap Smear completed Kristen Ruffin [facility] 01/13/2025 11:01:13 7 operative procedure on wrist completed Kristen Ruffin [facility] 01/13/2025 11:06:02 Imaging Results None recorded. Procedure Notes None recorded. Medical Equipment None Reported. Allergies No known drug allergies Medications Name Sig Start Date Stop Date Status Note LastModified by Organization Details LastModified Time buspirone 5 mg tablet TAKE 1 TO 2 TABLETS BY MOUTH THREE TIMES DAILY NEEDED FOR STRESS 01/13 completed Not Available Not Available Not Available ondansetron HCl 4 mg tablet Take 1 tablet every 6 hours by oral route as needed. 2024 active Not Available Not Available Not Avai lable triamcinolo ne acetonide 0.1 % topical cream [...] Body mass index (BMI) Body weight Systolic blood pressure Diastolic blood pressure Provider Name and Address Organization Details Last Updated DateTime 01/13/2025 170.18 cm 23.5 kg/m2 16026.86 g 121 mm[Hg] 78 mm[Hg] Kristen Ruffin [facility] 11:00:28 Social History Question Answer Notes LastModified by Organizat ion Details LastModified Time Tobacco Smoking Status Never Smoker Kristen Ruffin null, [facility] 01/13/2025 11:05:22 If You Are , What Was Your Level Of Alcohol Consumption Prior To ? Occasional [email or web address] Information not available 01/13/2025 Are You Blind Or Do You Have Difficulty Seeing? No [email or web address] Information n ot available 01/13/2025 What Is Your Level Of Caffeine Consumption? Occasional [email or web address] Information not available 01/13/2025 In The 14 Days Before Symptom Onset, Have You Had Close Contact With A Laboratory-confirm ed COVID-19 While That Case Was Ill? No [email or web address] Information n ot available 01/13/2025 In The 14 Days Before Symptom Onset, Have You Had Close Contact With A Person Who Is Under Investigation For COVID-19 While That Person Was Ill? No [email or web address] Information not available 01/13/2025 Have You Been To An Area Known To Be High Risk For COVID-19? No [email or web address] Information not available 01/13/2025 Are You Deaf Or Do You Have Serious Difficulty Hearing? No [email or web address] Information not available 01/13/2025 Do You Have Smoke And Carbon Monoxide Detectors In Your Home? Yes [email or web address] Information not available 01/13/2025 Do You Use Sunscreen Routinely? Yes [email or web address] Information not available 01/13/2025 Has Tobacco Cessation Counseling Been Provided? No [email or web address] Information not available 01/13/2025 Have You Used IV Drugs? No [email or web address] Information not available 01/13/2025 Do You Have Difficulty Walking Or Climbing Stairs? No [email or web address] Information not available 01/13/2025 Sex: Unknown Functional Status Question Answer Note LastModified by Organizat ion Details LastModified Time Do you use any illicit or recreational drugs? No [email or web address] Information not available 01/13/2025 Do you or have you ever used any other forms of tobacco or nicotine? Yes [email or web address] Information not available 01/13/2025 What is your level of alcohol consumption? None [email or web address] Information not available 01/13/2025 Are you able to walk? YESWOREST [email or web address] Information not available 01/13/2025 Are you able to care for yourself? Yes [email or web address] Information not available 01/13/2025 Do you have difficulty dressing or bathing? No [email or web address] Information not available 01/13/2025 Do you or have you ever used e-cigarettes or vape? Former user of electronic cigarettes [email or web address] Information not available 01/13/2025 Mental Status None recorded. Family History Relationship Description Onset Age of this Age Resolved Age Notes LastModified by Organization Details LastModified Time Unspecified Relation Family history unknown [email or web address] Not available 01/13 11:00:39 Paternal Grandfather Malignant neoplasm of prostate [email or web address] Not available 01/13 11:03:27 Maternal Grandfather Malignant neoplasm of lung [email or web address] Not available 01/13 11:03:40 Maternal Grandmother Malignant tumor of pancreas [email or web address] Not available 01/13 11:04:11 Maternal Aunt Malignant tumor of breast [email or web address] Not available 01/13 11:04:28 Father Leukemia [email or web address] Not availab le 01/13/2025 11:04:39 Mother Diabetes mellitus [email or web address] Not available 01/13 11:04:57 Medical History Condition [...] SNOMED-CT Code Diagnosis ICD10 Code Diagnosis Note [id number] Hayden Steele MD [facility] [address],[facility] [place] [address] 01/13/2025 09:39:53 01/13/2025 10:18:45 [id number] [facility] [address],[facility] [place] [address] 01/13/2025 09:41:07 01/13/2025 12:58:36 Amenorrhea 96744876 N91.2 reviewed education and precaution fátima for gummy PNVunisom and b6 for nauseapap not collected, reviewed usplan 12 week new ob and first look Gynecologi c examination 85059423 Z01.419 Health Concerns Section Related Observation LastModified by Organization Detai ls LastModified Time None Recorded Concern Status LastModified by Organization Details LastModified Time None Recorded Advance Directives Directive None Recorded Payers Encounter Date Sequence Insurance Name Policy Number Policy Marie Covered Member ID Marie Member ID Guarantor Name 01/13/2025 1 [employer] Kya Angulo [id number] Gabby Jose 01/13/2025 1 [place] Kya Angulo [id number] Gabby Jose Notes Date Note Type Note Provider Name and Address Organization Details Recorded Time 01/13/2025 text/html Annual GYNReport ed bypatient.History: no gynecologic complaints Menstrual cycle:Normal menses Urinary symptoms:No hematuria; No incontinence Vulva:No genital lesion Vagina:Normal vaginal dischargeNotes:dis cussed s/s of , tender breasts, nausea, heartburn Isabelle Be, [facility] [address], [place], [address], [facility] 01/13/2025 12:39:07 OBGyn Episode No OBEpisode recorded.
[2025-02-06] MEDS: SODIUM CHLORIDE 0.9% IV 1,000 ML 999 ML IV CONT ×2 (14:06→14:07)
[2025-02-06] MEDS: ONDANSETRON INJ 4 MG/2 ML VIAL IV PUSH (14:07)
[2025-02-06 14:25] LABS: Basophils Percent Auto 0.3 % (0.2-1.2); Eosinophils Percent Auto 0.3 % (0-4.4); Hematocrit 37.8 % (37.0-47.0); Hemoglobin 12.5 g/dL (12.0-15.0); Immature Granulocyte Absolute 0.03 K/mm3 (0.00-0.031); Immature Granulocyte Percent A 0.3 % (0-0.5); Lymphocytes Absolute Auto 1.32 K/mm3 (0.9-3.2); Lymphocytes Percent Auto 14.5 % (18.3-44.2); Mean Corpuscular HGB Conc 33.1 g/dl (32-36); Mean Corpuscular Hemoglobin 29.8 pg (26-34); Mean Corpuscular Volume 90.2 fl (80-100); Mean Platelet Volume 12.9 fl (7.4-10.4); Monocytes Absolute Auto 0.7 K/mm3 (0.1-0.6); Monocytes Percent Auto 7.6 % (2.6-8.5); Platelet Count Result 117 k/mm3 (150-375); Red Blood Count 4.19 M/mm3 (4.2-5.4); Red Cell Distribution Width 12.4 % (11.5-14.5); White Blood Count 9.1 K/mm3 (4.5-10.0)
[2025-02-06 14:27] LABS: Add Urine Microscopic? NO; Appearance Urine Clear (Clear); Bilirubin Urine Negative (Negative); Blood Urine Negative (Negative); Color Urine Yellow (Yellow); Glucose Urine UA Negative (Negative); Ketones Urine Negative (Negative); Leukocyte Esterase Ur Negative LEU/UL (Negative); Nitrate Urine Negative (Negative); Protein Urine Negative (Negative); Specific Grav Ur 1.005 (1.001-1.035); Urobilinogen Urine 0.2 mg/dL (<2.0); pH Urine 6.5 (5.0-9.0)
[2025-02-06 14:34] LABS: Alanine Aminotransferase 8 U/L (6-35); Albumin Level 4.1 g/dL (3.5-5.1); Alkaline Phosphatase 37 U/L (38-126); Anion Gap 7 mmol/L (4-12); Aspartate Amino Transferase 25 U/L (14-36); Bilirubin,Total 0.5 mg/dL (0.2-1.3); Blood Urea Nitrogen 6 mg/dL (7-17); Calcium 9.4 mg/dL (8.4-10.2); Carbon Dioxide 24 mmol/L (22-30); Chloride 103 mmol/L (98-107); Estimated Glomerular Filt Rate > 60; Glucose 79 mg/dL (65-110); Lipase 46 U/L (23-300); Potassium 3.9 mmol/L (3.4-5.0); Sodium 134 mmol/L (137-145); Total Protein 6.7 g/dL (6.3-8.2)
[2025-02-06 14:39] VITALS: BP 111/69; PULSE 69
[2025-02-06 14:40] VITALS: BP 109/68; PULSE 68
[2025-02-06 14:42] VITALS: BP 112/70; PULSE 70
--- OUTSIDE RECORDS SUMMARY | 2025-02-06 14:43 | XMS_ITS | Clinical Summary ---
Author Organization [address] Address [address] [facility] [place] [address] Care Team Providers Care Survey Chief Name Role Phone No, Physician Primary Care Provider [phone] Allergies No known active allergies Medications No [...] Plan of Treatment Not on file Insurance [employer] ACCESS OOS [employer] ACCESS OOS Care Teams Survey Chief Relationship Specialty Start Date End Date No, Physician PCP - General 01/23/22
--- OUTSIDE RECORDS SUMMARY | 2025-02-06 14:43 | XMS_ITS | Referral Summary ---
Author Organization [address] Address [address] [place] [address] Care Team Providers Care School Operations Manager Name Role Phone No, Physician Primary Care Provider [phone] Allergies No known active allergies Medications No [...] Plan of Treatment Not on file Insurance [employer]ett[employer] OOS Qu[employer] OOS Care Teams School Operations Manager Relationship Specialty Start Date End Date No, Physician PCP - General 01/23/22
[2025-02-06 15:04] LABS: Influenza A QL RT-PCR Negative (Negative); Influenza B QL RT-PCR Negative (Negative); RSV RNA, RT-PCR Negative (Negative); SARS-CoV-2 RNA PCR Negative (Negative)
--- NOTE | 2025-02-06 15:45 | PC.NURSE ---
Pt. states I feel a lot better. Denies any current nausea. Dr. Viera notified.
--- NOTE | 2025-02-06 15:48 | ED.GENADULT ---
HPI - General Adult General Chief complaint: Nausea/Vomiting/Diarrhea Stated complaint: OB wants her to get fluids, 12 weeks Time Seen by Provider: 02/06/25 13:14 History of Present Illness HPI narrative: This is a at 12 weeks gestation presenting for nausea vomiting . Patient has been having significant nausea vomiting with this . She has required ER visit past for IV fluids. She has p.o. Zofran at home frequently finds that she cannot keep it down as she is most nauseous in the morning. She has not had any abdominal pain, vaginal bleeding or discharge. No urinary symptoms. Related Data Home Medications ?Medication ?Instructions ?Recorded ?Confirmed ?Last Taken ?Type norethindrone 1 mg-ethinyl 1 tablet PO DAILY 07/20/20 09/12/24 Unknown History estradiol 20 mcg (21)-iron 75 mg (7) tablet (Loestrin Fe 09/19 (28-Day)) Allergies Allergy/AdvReac Type Severity Reaction Status Date / Time No Known Allergies Allergy Verified 09/13/24 16:14 [facility] Past Medical History Medical History Anxiety Depression Acne Ganglion cyst of dorsum of left wrist Surgical History Surgical History No pertinent past surgical history Family History Family History Other Breast cancer Father Leukemia Grandparent Cerebrovascular accident Malignant neoplasm of prostate Social History Social History Smoking status: Never smoker Second hand tobacco smoke exposure: No Alcohol intake: never Substance use: never Substance use type: does not use Do You Feel Safe in your Home?: Yes Lack of Transportation: No Lack of Food: Never True Current Housing: I Have Housing Concerned About Future Housing: No Difficulty Paying Gas/Electric Bills: No Difficulty Paying for Meds: No Currently Unemployed: No Education: High School Diploma/GED Living arrangements: with family Occupation/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 Well-appearing Head: atraumatic. EYES: EOMI, NOSE: Atraumatic NECK: Trachea midline RESPIRATORY: No increased rate of breathing clear to auscultation CARDIOVASCULAR: RRR, ABDOMINAL: Non-distended soft nontender no guarding rebound MUSCULOSKELETAl: No obvious deformities NEURO: Alert. Moving 4/4 extremities SKIN:: Warm, dry. Normal color PSYCHIATRIC: Normal affect Course Vital Signs Vital signs: Vital Signs Temperature 98.1 F 02/06/25 12:53 Pulse Rate 79 02/06/25 12:53 Respiratory Rate 14 02/06/25 12:53 Blood Pressure 121/76 02/06/25 12:53 Pulse Oximetry 98 02/06/25 12:53 Oxygen Delivery Room Air 02/06/25 12:53 Temperature 98.1 F 02/06/25 12:53 Pulse Rate 70 02/06/25 14:42 Respiratory Rate 14 02/06/25 12:53 Blood Pressure 112/70 02/06/25 14:42 Pulse Oximetry 98 02/06/25 12:53 Oxygen Delivery Room Air 02/06/25 12:53 Medical Decision Making MDM Narrative Medical decision making narrative: -Course: 24-year-old female present 12 weeks gestation nausea vomiting and . Laboratory studies within normal limits. No ketones urine. Patient was given IV fluids and antiemetics with improvement. Patient will be discharged with B6 and doxylamine and ODT Zofran. Follow up with her primary care physician. -DDX includes but is not limited to: Hyperemesis gravidarum, nausea vomiting of Vital Signs Vital Signs: Vital Signs Temperature 98.1 F 02/06/25 12:53 Pulse Rate 79 02/06/25 12:53 Respiratory Rate 14 02/06/25 12:53 Blood Pressure 121/76 02/06/25 12:53 Pulse Oximetry 98 02/06/25 12:53 Oxygen Delivery Room Air 02/06/25 12:53 Temperature 98.1 F 02/06/25 12:53 Pulse Rate 70 02/06/25 14:42 Respiratory Rate 14 02/06/25 12:53 Blood Pressure 112/70 02/06/25 14:42 Pulse Oximetry 98 02/06/25 12:53 Oxygen Delivery Room Air 02/06/25 12:53 Lab Data 02/06/25 14:02 02/06/25 14:02 Labs: Lab Results 02/06/25 Range/Units 14:02 WBC 9.1 (4.5-10.0) K/mm3 RBC 4.19 L (4.2-5.4) M/mm3 Hgb 12.5 (12.0-15.0) g/dL Hct 37.8 (37.0-47.0) % MCV 90.2 (80-100) fl MCH 29.8 (26-34) pg MCHC 33.1 (32-36) g/dl RDW 12.4 (11.5-14.5) % Plt Count 117 L (150-375) k/mm3 MPV 12.9 H (7.4-10.4) fl Immature Gran % (Auto) 0.3 (0-0.5) % Neut % (Auto) 77.0 H (45.5-73.1) % Lymph % (Auto) 14.5 L (18.3-44.2) % [place] % (Auto) 7.6 (2.6-8.5) % Eos % (Auto) 0.3 (0-4.4) % Baso % (Auto) 0.3 (0.2-1.2) % Lymph # (Auto) 1.32 (0.9-3.2) K/mm3 [place] # (Auto) 0.7 H (0.1-0.6) K/mm3 Eos # (Auto) 0.0 (0-0.3) K/mm3 Baso # (Auto) 0.0 (0.0-0.1) K/mm3 Abs Immat Gran (auto) 0.03 (0.00-0.031) K/mm3 Absolute Neuts (auto) 7.0 H (1.3-6.7) K/mm3 Absolute Nucleated RBC 0.000 (0.0-0.012) K/mm3 Nucleated RBC % 0.0 (0.0-0.2) % Sodium 134 L (137-145) mmol/L Potassium 3.9 (3.4-5.0) mmol/L Chloride 103 (98-107) mmol/L Carbon Dioxide 24 (22-30) mmol/L Anion Gap 7 (4-12) mmol/L BUN 6 L (7-17) mg/dL Creatinine 0.54 L (0.7-1.0) mg/dL Estim Creat Clear Calc Not Reportable Estimated GFR > 60 (59 - ) Glucose 79 (65-110) mg/dL Calcium 9.4 (8.4-10.2) mg/dL Total Bilirubin 0.5 (0.2-1.3) mg/dL AST 25 (14-36) U/L ALT 8 (6-35) U/L Alkaline Phosphatase 37 L (38-126) U/L Total Protein 6.7 (6.3-8.2) g/dL Albumin 4.1 (3.5-5.1) g/dL Lipase 46 (23-300) U/L Urine Color Yellow (Yellow) Urine Appearance Clear (Clear) Urine pH 6.5 (5.0-9.0) Ur Specific [place] 1.005 (1.001-1.035) Urine Protein Negative (Negative) mg/dL Urine Glucose (UA) Negative (Negative) mg/dL Urine Ketones Negative (Negative) mg/dL Ur Blood (Man) Negative (Negative) Urine Nitrate Negative (Negative) Urine Bilirubin Negative (Negative) Urine Urobilinogen 0.2 (<2.0) mg/dL Leukocyte Esterase Rfl Negative (Negative) DEWAYNE/UL Influenza A (RT-PCR) Negative (Negative) Influenza B (RT-PCR) Negative (Negative) RSV (RT-PCR) Negative (Negative) SARS-CoV-2 RNA (RT-PCR) Negative (Negative) Discharge Plan Discharge Clinical Impression: Nausea and vomiting during Patient Disposition: Home Condition: Stable Instructions: Antibiotic Form, (ED) Additional Instructions: You were seen in the emergency department for nausea and vomiting of . Please use Zofran ODT as needed. Use doxylamine vitamin B6 when you are tolerating p.o.. Follow-up with your primary care physician OBGYN for further management. Return to the ED abdominal pain, vaginal bleeding or intractable nausea vomiting. Patient Language: Tajik Prescriptions: New pyridoxine (vitamin B6) 25 mg tablet 25 mg PO TID Qty: 30 0RF doxylamine succinate 25 mg tablet 25 mg PO Q8H PRN (Reason: allergy symptoms) Qty: 30 0RF ondansetron 4 mg tablet,disintegrating 4 mg PO Q8H PRN (Reason: nausea and vomiting) Qty: 30 0RF No Action nortriptyline 10 mg capsule 10 mg PO QHS Qty: 30 2RF buspirone 5 mg tablet See Rx Instructions PO TID PRN (Reason: stress) Qty: 90 0RF Rx Instructions: Take 1-2 tablets orally three times a day PRN; triamcinolone acetonide 0.1 % cream 1 applic topical BID PRN (Reason: irritation) Qty: 80 0RF norethindrone-e.estradiol-iron [Loestrin Fe 09/19 (28-Day)] 1 mg-20 mcg (21)/75 mg (7) tablet 1 tablet PO DAILY lidocaine 5 % adhesive patch,medicated 1 patch topical DAILY Qty: 15 0RF Rx Instructions: leave on most painful area for up to 12 hrs lidocaine HCl 2 % solution 1 applic mucous membrane TID PRN (Reason: pain) Qty: 100 0RF hydrocortisone acetate [Anusol-HC] 25 mg suppository 25 mg RECTAL QHS Qty: 24 0RF Follow-up/Referrals: Isabelle Be CNM [Primary Care Provider] -
--- NOTE | 2025-02-06 16:24 | PC.NURSE ---
FHR 170. Dr. Viera notified and ok with this.
[2025-02-06 16:33] VITALS: BP 111/67; PULSE 86; RESP 16; O2SAT 97
== END 2025-02-06 16:45 | disposition home or self-care (01) ==
PROVIDERS: Emergency Provider Emergency Medicine; PCP Advanced Practice Midwife
DX: O21.0 Mild hyperemesis gravidarum (principal); Z3A.12 12 weeks gestation of pregnancy; Z20.822 Contact with and (suspected) exposure to COVID-19
CPT/HCPCS: 36415; 80053; 81003; 83690; 85025; 87637; 96361; 96374; 99284; J2405; J7030

== ENCOUNTER 2025-04-21 18:20 | Outpatient (RCR) | payer BC, MEDICAID, SELFPAY ==
[2025-04-21 18:56] VITALS: BP 118/67; PULSE 78
== END 2025-07-20 23:59 | disposition home or self-care (01) ==
LOC: ANHOBOP 18:20
PROVIDERS: PCP Advanced Practice Midwife; Visit Provider Obstetrics & Gynecology
DX: O36.8120 Decreased fetal movements, second trimester, not applicable or unspecified (principal); Z3A.22 22 weeks gestation of pregnancy
CPT/HCPCS: 59025

== ENCOUNTER 2025-04-26 09:56 | Emergency (ER) | payer BC, SELFPAY ==
[2025-04-26 10:18] VITALS: BP 111/71; PULSE 79
[2025-04-26 10:19] VITALS: BP 114/70; PULSE 79
[2025-04-26 10:20] VITALS: BP 115/81; PULSE 116
--- OUTSIDE RECORDS SUMMARY | 2025-04-26 10:20 | XMS_ITS | Clinical Summary ---
Author Organization [address] Address [address] [facility] [place] [address] Care Team Providers Care Press Tender Star Signal Name Role Phone No, Physician Primary Care Provider [phone] Allergies No known active allergies Medications No [...] Plan of Treatment Not on file Insurance [employer] ACCESS OOS [employer] ACCESS OOS Care Teams Press Tender Star Signal Relationship Specialty Start Date End Date No, Physician PCP - General 01/23/22
[2025-04-26 10:21] VITALS: TEMP 36.5
[2025-04-26 10:31] LABS: Hematocrit 37.4 % (37.0-47.0); Hemoglobin 12.5 g/dL (12.0-15.0); Immature Granulocyte Percent A 0.9 % (0-0.5); Lymphocytes Absolute Auto 1.21 K/mm3 (0.9-3.2); Mean Corpuscular HGB Conc 33.4 g/dl (32-36); Mean Corpuscular Hemoglobin 30.7 pg (26-34); Mean Corpuscular Volume 91.9 fl (80-100); Nucleated Red Blood Cells Absolute Auto 0.000 K/mm3 (0.0-0.012); Nucleated Red Blood Cells Perc 0.0 % (0.0-0.2); Platelet Count Result 112 k/mm3 (150-375); Red Blood Count 4.07 M/mm3 (4.2-5.4); White Blood Count 11.7 K/mm3 (4.5-10.0)
[2025-04-26 10:37] LABS: Add Urine Microscopic? YES; Appearance Urine Cloudy (Clear); Glucose Urine UA Negative (Negative); Leukocyte Esterase Ur 3+ LEU/UL (Negative); Nitrate Urine Negative (Negative); Specific Grav Ur 1.018 (1.001-1.035)
--- NOTE | 2025-04-26 10:47 | ECG_ITS ---
Test Date: 2025-04-26 11:19:36 Measurements Intervals [place] Rate: 79 P: 63 DE: 122 QRS: 77 QRSD: 91 T: 32 QT: 369 QTc: 423 Interpretive Statements SINUS RHYTHM INCOMPLETE RIGHT BUNDLE BRANCH BLOCK MINIMAL Q WAVES- INFERIOR LEADS BASELINE ARTIFACT- I, III, AVR, AVL, AVF, V1-V3 BORDERLINE ECG No previous ECG available for comparison Electronically Signed On 04-26-2025 11:31:19 CDT by Shahab Oconnell D.O.
[2025-04-26] MEDS: SODIUM CHLORIDE 0.9% IV 1,000 ML 999 ML IV CONT (10:54)
[2025-04-26 10:55] LABS: Alanine Aminotransferase 10 U/L (6-35); Albumin Level 3.6 g/dL (3.5-5.1); Alkaline Phosphatase 53 U/L (38-126); Anion Gap 5 mmol/L (4-12); Aspartate Amino Transferase 24 U/L (14-36); Bilirubin,Total 0.4 mg/dL (0.2-1.3); Blood Urea Nitrogen 8 mg/dL (7-17); Calcium 8.8 mg/dL (8.4-10.2); Carbon Dioxide 26 mmol/L (22-30); Chloride 104 mmol/L (98-107); Estimated CRCL calculation 135 ml/min; Estimated Glomerular Filt Rate > 60; Glucose 107 mg/dL (65-110); Lipase 44 U/L (23-300); Potassium 3.4 mmol/L (3.4-5.0); Sodium 135 mmol/L (137-145); Total Protein 6.4 g/dL (6.3-8.2)
--- NOTE | 2025-04-26 11:14 | ED_ITS ---
HPI - Dizziness General Chief Complaint: Dizziness Stated Complaint: dizzy spells and N/V, 23 weeks preg Time Seen by Provider: 04/26/25 10:46 Source: patient Mode of arrival: ambulatory Limitations: no limitations History of Present Illness HPI Narrative: This is a 24-year-old female that presents to the emergency department for dizziness. Reports room spinning dizziness, ongoing since last night. Associated with nausea and vomiting. Reports no previous history of vertigo. She is currently 23 weeks . Has no other related concerns. Is feeling baby move. Denies chest pain, shortness of breath, focal numbness, weakness. Related Data Home Medications ?Medication ?Instructions ?Recorded ?Confirmed ?Last Taken ?Type norethindrone 1 mg-ethinyl 1 tablet PO DAILY 07/20/20 09/12/24 Unknown History estradiol 20 mcg (21)-iron 75 mg (7) tablet (Loestrin Fe 09/19 (28-Day)) Allergies Allergy/AdvReac Type Severity Reaction Status Date / Time No Known Allergies Allergy Verified 04/26/25 10:00 Review of Systems 2 Review of Systems: All systems reviewed & are unremarkable except as noted in HPI and below PMFSH Past Medical History Medical History Anxiety Depression Acne Ganglion cyst of dorsum of left wrist Surgical History Surgical History No pertinent past surgical history Family History Family History Other Breast cancer Father Leukemia Grandparent Cerebrovascular accident Malignant neoplasm of prostate Social History Social History Smoking status: Never smoker Second hand tobacco smoke exposure: No Alcohol intake: never Substance use: never Substance use type: does not use Do You Feel Safe in your Home?: Yes Lack of Transportation: No Lack of Food: Never True Current Housing: I Have Housing Concerned About Future Housing: No Difficulty Paying Gas/Electric Bills: No Difficulty Paying for Meds: No Currently Unemployed: No Education: High School Diploma/GED Living arrangements: with family Occupation/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 HEAD: Normocephalic, atraumatic. EYES: PERRLA and EOMI. ENT: Nares clear, no rhinorrhea or epistaxis. Mucous membranes moist. Oropharynx without tonsillar hypertrophy exudate or other lesions. Left TM pearly reed non- bulging. Effusion behind the right TM without redness noted NECK: Supple. No adenopathy or masses. CHEST: Clear to auscultation. No respiratory distress. No wheezes rales or rhonchi HEART: Regular rate and rhythm. No murmur heard. Normal peripheral pulses. ABDOMEN: Gravid, nontender, nondistended, normal active bowel sounds. EXTREMITIES: Normal range of motion. No edema. Strength equal in bilateral upper and lower extremities (5/5) SKIN: Warm, dry, no rash. NEURO: No focal deficits. Alert and oriented x3. Cranial nerves 2-12 grossly intact. Normal [id number] PSYCH: Normal mood and affect Course Course Emergency Course: Patient feeling improved at this time. Ambulatory with a steady gait Consultations Consultation #1: Spoke with Dr. Steele about patient and workup. Agrees with oral antibiotics for bacteriuria. Date: 04/26/25 Vital Signs Vital signs: Vital Signs Pulse Rate 79 04/26/25 10:18 Blood Pressure 111/71 04/26/25 10:18 Temperature 97.7 F 04/26/25 10:21 Pulse Rate 116 H 04/26/25 10:20 Blood Pressure 115/81 04/26/25 10:20 MDM - Dizziness MDM Narrative Medical decision making narrative: Patient presents the emergency department for dizziness. Reports associated nausea and vomiting. Ongoing since last night. Patient is afebrile and nontoxic appearing. Orthostatic upon arrival, hydrated with L of IV fluids. CBC with mild leukocytosis to 11.7. Hemoglobin is normal. Metabolic panel without concerning findings. Urine with possible evidence of infection. This was sent for culture. Patient given 1st dose of antibiotics IV in the ER. Normal heart tones noted. Patient is feeling baby move normally. Denies any bleeding, cramping. Given meclizine, Zofran with relief. Ambulatory with a steady gait. Spoke with Dr. Steele about patient and workup. Agrees with oral antibiotics for bacteriuria. She is to follow up in clinic. She was given warnings to return to the ER Differential Diagnosis Differential diagnosis: Likely adverse reaction to drug, benign paroxysmal positional vertigo and orthostatic hypotension Lab Data Attestation: I reviewed the patient's lab results. 04/26/25 10:23 04/26/25 10:23 Labs: Lab Results 04/26/25 Range/Units 10:23 WBC 11.7 H (4.5-10.0) K/mm3 RBC 4.07 L (4.2-5.4) M/mm3 Hgb 12.5 (12.0-15.0) g/dL Hct 37.4 (37.0-47.0) % MCV 91.9 (80-100) fl MCH 30.7 (26-34) pg MCHC 33.4 (32-36) g/dl RDW 13.0 (11.5-14.5) % Plt Count 112 L (150-375) k/mm3 MPV 12.2 H (7.4-10.4) fl Immature Gran % (Auto) 0.9 H (0-0.5) % Neut % (Auto) 82.7 H (45.5-73.1) % Lymph % (Auto) 10.4 L (18.3-44.2) % [place] % (Auto) 5.4 (2.6-8.5) % Eos % (Auto) 0.3 (0-4.4) % Baso % (Auto) 0.3 (0.2-1.2) % Lymph # (Auto) 1.21 (0.9-3.2) K/mm3 [place] # (Auto) 0.6 (0.1-0.6) K/mm3 Eos # (Auto) 0.0 (0-0.3) K/mm3 Baso # (Auto) 0.0 (0.0-0.1) K/mm3 Abs Immat Gran (auto) 0.10 H (0.00-0.031) K/mm3 Absolute Neuts (auto) 9.7 H (1.3-6.7) K/mm3 Absolute Nucleated RBC 0.000 (0.0-0.012) K/mm3 Nucleated RBC % 0.0 (0.0-0.2) % Sodium 135 L (137-145) mmol/L Potassium 3.4 (3.4-5.0) mmol/L Chloride 104 (98-107) mmol/L Carbon Dioxide 26 (22-30) mmol/L Anion Gap 5 (4-12) mmol/L BUN 8 (7-17) mg/dL Creatinine 0.55 L (0.7-1.0) mg/dL Estim Creat Clear Calc 135 ml/min Estimated GFR > 60 (59 - ) Glucose 107 (65-110) mg/dL Calcium 8.8 (8.4-10.2) mg/dL Total Bilirubin 0.4 (0.2-1.3) mg/dL AST 24 (14-36) U/L ALT 10 (6-35) U/L Alkaline Phosphatase 53 (38-126) U/L Total Protein 6.4 (6.3-8.2) g/dL Albumin 3.6 (3.5-5.1) g/dL Lipase 44 (23-300) U/L Urine Color Yellow (Yellow) Urine Appearance Cloudy H (Clear) Urine pH 8.0 (5.0-9.0) Ur Specific [place] 1.018 (1.001-1.035) Urine Protein Trace (Negative) mg/dL Urine Glucose (UA) Negative (Negative) mg/dL Urine Ketones Trace H (Negative) mg/dL Ur Blood (Man) Negative (Negative) Urine Nitrate Negative (Negative) Urine Bilirubin Negative (Negative) Urine Urobilinogen 0.2 (<2.0) mg/dL Leukocyte Esterase Rfl 3+ H (Negative) DEWAYNE/UL Urine RBC 3-5 H (0-2) /hpf Urine WBC 51-100 H (0-3) /hpf Ur Squamous Epith Cells Few (Few) /hpf Urine Bacteria 4+ H /hpf Urine Casts 3-5 ECG Data EKG #1: ECG completion date: 04/26/25 EKG Interpretation: normal rate, sinus rhythm, no ST changes and normal QT Critical Care Time Critical Care Time Critical Care Time: No Discharge Plan Discharge Clinical Impression: Vertigo, Acute UTI Patient Disposition: Home Condition: Improved Instructions: Antibiotic Form, Vertigo (ED), Urinary Tract Infection in (ED) Additional Instructions: Return to the ER if you experience fever, chest pain, shortness of breath, abdominal pain with nausea and vomiting, you are unable to keep down liquids or solids, pelvic cramping, vaginal bleeding, or any other symptoms that are concerning to you Remain well hydrated. Meclizine as needed for dizziness. Take oral antibiotics as prescribed Follow up with your OB Patient Language: [place] Prescriptions: New meclizine 25 mg tablet 25 mg PO BID PRN (Reason: dizziness) Qty: 7 0RF cephalexin 500 mg capsule 500 mg PO Q6H 5 Days Qty: 20 0RF No Action nortriptyline 10 mg capsule 10 mg PO QHS Qty: 30 2RF buspirone 5 mg tablet See Rx Instructions PO TID PRN (Reason: stress) Qty: 90 0RF Rx Instructions: Take 1-2 tablets orally three times a day PRN; triamcinolone acetonide 0.1 % cream 1 applic topical BID PRN (Reason: irritation) Qty: 80 0RF norethindrone-e.estradiol-iron [Loestrin Fe 09/19 (28-Day)] 1 mg-20 mcg (21)/75 mg (7) tablet 1 tablet PO DAILY lidocaine 5 % adhesive patch,medicated 1 patch topical DAILY Qty: 15 0RF Rx Instructions: leave on most painful area for up to 12 hrs pyridoxine (vitamin B6) 25 mg tablet 25 mg PO TID Qty: 30 0RF doxylamine succinate 25 mg tablet 25 mg PO Q8H PRN (Reason: allergy symptoms) Qty: 30 0RF ondansetron 4 mg tablet,disintegrating 4 mg PO Q8H PRN (Reason: nausea and vomiting) Qty: 30 0RF lidocaine HCl 2 % solution 1 applic mucous membrane TID PRN (Reason: pain) Qty: 100 0RF hydrocortisone acetate [Anusol-HC] 25 mg suppository 25 mg RECTAL QHS Qty: 24 0RF Follow-up/Referrals: Gilson Boswell MD [Primary Care Provider, [facility]]
--- OUTSIDE RECORDS SUMMARY | 2025-04-26 11:20 | XMS_ITS | Clinical Summary ---
Author Organization [address] Address [address] [place] [address] Care Team Providers Care Repairer Kiln Car Name Role Phone No, Physician Primary Care Provider [phone] Allergies No known active allergies Medications No [...] Plan of Treatment Not on file Insurance [employer] Address: [address] [place] [address] [employer] Address: [address] [place] [address] Care Teams Repairer Kiln Car Relationship Specialty Start Date End Date No, Physician PCP - General 01/23/22
[2025-04-26] MEDS: MECLIZINE HCL 25 MG TABLET PO (11:23)
[2025-04-26] MEDS: ONDANSETRON INJ 4 MG/2 ML VIAL IV PUSH (11:23)
--- NOTE | 2025-04-26 12:40 | PC.NURSE ---
Ambulatory to bathroom with steady gait. Dizziness decreased but c/o feeling off.
[2025-04-26] MEDS: cefTRIAXone 1 GM in SODIUM CHLORIDE 0.9% IV 50 ML 100 ML IVPB (13:45)
[2025-04-26 13:46] VITALS: BP 106/57; PULSE 72; RESP 18; O2SAT 100
== END 2025-04-26 14:08 | disposition home or self-care (01) ==
PROVIDERS: Student in an Organized Health Care Education/Training Program; Emergency Provider Physician Assistant; PCP Obstetrics & Gynecology
DX: R42 Dizziness and giddiness (principal); N39.0 Urinary tract infection, site not specified; F41.9 Anxiety disorder, unspecified; F32.A Depression, unspecified
CPT/HCPCS: 36415; 80053; 81001; 83690; 85025; 87086; 93005; 96361; 96365; 96375; 99284; A9270; J0696; J2405; J7030

== ENCOUNTER 2025-04-27 11:06 | Observation (INO) | payer BC, SELFPAY ==
[2025-04-27] VITALS (8 sets, daily range): BP systolic 112–121; BP diastolic 60–82; PULSE 73–86; O2SAT 100; BMI 24.9
--- OUTSIDE RECORDS SUMMARY | 2025-04-27 11:14 | XMS_ITS | Clinical Summary ---
Author Organization [address] Address [address] [place] [address] Care Team Providers Care Artistic Director Name Role Phone No, Physician Primary Care Provider [phone] Allergies No known active allergies Medications No [...] Plan of Treatment Not on file Insurance [employer] ACC[employer] Care Teams Artistic Director Relationship Specialty Start Date End Date No, Physician PCP - General 01/23/22
--- NOTE | 2025-04-27 12:13 | OBADM ---
This patient, Gabby Jose, admitted to the OB room 115 for observation. Patient/family oriented to hospital policies and general routines including ID bracelet, bed and alarms, visiting hours, pain management, procedures, bathroom and other care routines, personal items, smoking policy, room service/diet, and visiting hours. Patient/Family are encouraged to report perceived risks to care and to ask questions if they do not understand what they are told or what they should do.
[2025-04-27] MEDS: SCOPOLAMINE 1 MG PATCH 1 PATCH TRANSDERM (12:40)
--- NOTE | 2025-04-27 12:55 | PM.IMHP ---
H&P: [facility] History of Present Illness Date/Time: 04/27/25 12:55 Chief Complaint: Dizziness, prepped Narrative: This patient is a 24-year-old female who presents with dizziness and nausea. Patient a sensation of spinning movement. She denies any chest pain or shortness of breath. She denies any fever chills. She denies any vaginal bleeding or loss of fluid. She denies any contractions. Patient was seen in the emergency department yesterday. She is treated with meclizine. It did not improve. Going to try scopolamine patch today. Consider Neurology or ENT consult. Review of Systems Review of Systems: All systems reviewed & are unremarkable except as noted in HPI and below Constitutional: Constitutional: Denies chills, Denies fatigue, Denies fever(s) and Denies weakness Eyes: Eyes: Denies blurry vision, Denies change in vision, Denies loss of peripheral vision, Denies loss of vision, Denies other visual disturbances and Denies eye pain ENT: Denies vertigo, Denies dizziness, Denies hearing loss, Denies mouth pain, Denies nasal obstruction, Denies neck mass and Denies neck pain Cardiovascular: Cardiovascular: Denies chest pain, Denies diaphoresis, Denies syncope, Denies leg edema and Denies dyspnea Respiratory: Respiratory: Denies chest congestion, Denies cough, Denies hemoptysis, Denies dyspnea and Denies wheezing Gastrointestinal: Gastrointestinal: Denies abdominal pain, Denies constipation, Denies diarrhea, Denies nausea and Denies vomiting Genitourinary: Genitourinary: Denies hematuria, Denies change in libido, Denies nocturia, Denies genital lesions, Denies flank pain and Denies urinary urgency Musculoskeletal: Musculoskeletal: Denies abnormal gait, Denies back pain, Denies myalgias, Denies arthralgias, Denies joint swelling, Denies muscle weakness and Denies neck pain Integumentary/Breasts: Skin/Breast: Denies swelling, Denies breast pain, Denies breast mass, Denies dry skin, Denies nipple discharge, Denies unusual bruising and Denies jaundice Neurologic: Denies Neuro-related abnormal movements, Denies Abnormal speech present, Denies abnormal gait, Denies behavioral changes, Denies confusion, Denies vertigo, Denies dizziness, Denies syncope, Denies loss of vision, Denies memory loss, Denies convulsions and Denies weakness Psychiatric: Psychiatric: Denies abnormal sleep pattern, Denies behavioral changes, Denies change in libido, Denies confusion, Denies depression, Denies anhedonia and Denies memory loss Endocrine: Endocrine: Reports no additional endocrine complaints, Denies change in libido and Denies fatigue Hematologic/Lymphatic: Hematologic/Lymphatic: Reports no additional hematologic/lymphatic complaints Allergic/Immunologic: Allergic/Immunologic: Reports no additional allergic/immunologic complaints and Denies wheezing PMFSH Past Medical History Medical History Anxiety Depression Acne Ganglion cyst of dorsum of left wrist Surgical History Surgical History No pertinent past surgical history Family History Family History Other Breast cancer Father Leukemia Grandparent Cerebrovascular accident Malignant neoplasm of prostate Social History Social History Smoking status: Never smoker Second hand tobacco smoke exposure: No Alcohol intake: never Substance use: never Substance use type: does not use Do You Feel Safe in your Home?: Yes Lack of Transportation: No Lack of Food: Never True Current Housing: I Have Housing Concerned About Future Housing: No Difficulty Paying Gas/Electric Bills: No Difficulty Paying for Meds: No Currently Unemployed: No Education: High School Diploma/GED Difficulty w/ Childcare or Family Care: No Living arrangements: with family Occupation/Education: occupation 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 Gender identity (if verbalized by the patient): Female Meds Home Medications and Allergies Home Medications ?Medication ?Instructions ?Recorded ?Confirmed ?Type cephalexin 500 mg capsule 500 mg PO Q6H 5 days #20 caps 04/26/25 04/27/25 Rx meclizine 25 mg tablet 25 mg PO BID PRN dizziness #7 tabs 04/26/25 04/27/25 Rx pyridoxine (vitamin B6) 25 mg 25 mg PO TID PRN nausea 04/27/25 04/27/25 History tablet Allergies Allergy/AdvReac Type Severity Reaction Status Date / Time No Known Allergies Allergy Verified 04/27/25 12:07 Vital Signs Vital Signs - 24 hr 04/27/25 11:45 04/27/25 11:49 04/27/25 11:50 Pulse Rate 78 84 Blood Pressure 113/63 121/82 Pulse Oximetry 100 100 04/27/25 11:51 04/27/25 11:55 04/27/25 12:00 Pulse Rate 74 80 Blood Pressure 117/64 112/68 Pulse Oximetry 100 04/27/25 12:16 04/27/25 12:30 Pulse Rate 86 81 Blood Pressure 112/60 117/74 Pulse Oximetry Exam Const: General: cooperative, healthy appearing, comfortable and no acute distress Orientation/consciousness: oriented to person, oriented to place and oriented to time HENMT: Head: normal to inspection Ears: external ears normal Face/Nose/Sinus: Normal external nose present and normal facial exam Face and sinus: normal facial exam Eyes: General: appearance normal, both eyes and all related structures Neck: Neck: normal visual inspection, trachea midline and supple Resp: Auscultation: clear to auscultation bilaterally, no crackles, no rales, no rhonchi and no wheezes Cardio: Rate: regular rate Rhythm: regular rhythm Heart sounds: no click, no murmurs and no rubs GI: GI Palp: No abdominal tenderness, No Soft to palpation, No Tenderness to palpation present (GI) and No Palpable mass present Auscultation: normal bowel sounds Skin: General skin exam: normal color and no rashes or lesions noted Neuro: General: oriented to person, oriented to place and oriented to time Extrem: General: normal to inspection, no joint enlargement, no clubbing, cyanosis or edema, no pedal edema and no calf tenderness Psych: Appearance: grossly normal Mental Status: mental status grossly normal Speech and movement: Normal speech and movement present Assessment and Plan Assessment and plan (1) : Code(s): Z34.90 - Encounter for supervision of normal , unspecified, unspecified trimester Status: Acute Plan This patient is a 24-year-old female who presents with dizziness and nausea. Patient a sensation of spinning movement. She denies any chest pain or shortness of breath. She denies any fever chills. She denies any vaginal bleeding or loss of fluid. She denies any contractions. Patient was seen in the emergency department yesterday. She is treated with meclizine. It did not improve. Going to try scopolamine patch today. Consider Neurology or ENT consult.
--- NOTE | 2025-05-21 20:15 | PM.OBTRLD ---
OB - Triage/Final Diagnosis Visit Information Comments/Additional reasons for admission: I have assessed the risk for this patient, Gabby Jose, and determined that she would benefit from observation care. Final Diagnosis (1) Nausea and vomiting: Code(s): R11.2 - Nausea with vomiting, unspecified Status: Acute
== END 2025-04-27 14:08 | disposition home or self-care (01) ==
PROVIDERS: Admitting Provider Obstetrics & Gynecology; Visit Provider Obstetrics & Gynecology
DX: O21.2 Late vomiting of pregnancy (principal); Z3A.23 23 weeks gestation of pregnancy; R42 Dizziness and giddiness; F41.8 Other specified anxiety disorders; Z80.42 Family history of malignant neoplasm of prostate; Z80.6 Family history of leukemia; Z82.3 Family history of stroke; Z80.3 Family history of malignant neoplasm of breast
CPT/HCPCS: A9270; G0378; G0379

== ENCOUNTER 2025-04-28 17:14 | Observation (INO) | payer BC, SELFPAY ==
[2025-04-28] VITALS (20 sets, daily range): BP systolic 103–113; BP diastolic 55–63; PULSE 71–87; O2SAT 98–100; BMI 25.1
--- NOTE | 2025-04-28 17:51 | OBADM ---
This patient, Gabby Jose, admitted to the OB room OB Post 116 for observation. Patient/family oriented to hospital policies and general routines including ID bracelet, bed and alarms, visiting hours, pain management, procedures, bathroom and other care routines, personal items, smoking policy, room service/diet, and visiting hours. Patient/Family are encouraged to report perceived risks to care and to ask questions if they do not understand what they are told or what they should do.
[2025-04-28 17:52] LABS: Hematocrit 37.9 % (37.0-47.0); Hemoglobin 12.7 g/dL (12.0-15.0); Immature Granulocyte Percent A 0.7 % (0-0.5); Lymphocytes Absolute Auto 1.68 K/mm3 (0.9-3.2); Mean Corpuscular HGB Conc 33.5 g/dl (32-36); Mean Corpuscular Hemoglobin 30.5 pg (26-34); Mean Corpuscular Volume 91.1 fl (80-100); Nucleated Red Blood Cells Absolute Auto 0.000 K/mm3 (0.0-0.012); Nucleated Red Blood Cells Perc 0.0 % (0.0-0.2); Platelet Count Result 115 k/mm3 (150-375); Red Blood Count 4.16 M/mm3 (4.2-5.4); White Blood Count 14.3 K/mm3 (4.5-10.0)
[2025-04-28 17:57] LABS: Add Urine Microscopic? YES; Appearance Urine Cloudy (Clear); Glucose Urine UA Negative (Negative); Leukocyte Esterase Ur 1+ LEU/UL (Negative); Nitrate Urine Negative (Negative); Non Pathogenic Casts 0-2; Specific Grav Ur 1.006 (1.001-1.035)
[2025-04-28 18:03] LABS: Alanine Aminotransferase 10 U/L (6-35); Albumin Level 3.9 g/dL (3.5-5.1); Alkaline Phosphatase 59 U/L (38-126); Anion Gap 7 mmol/L (4-12); Aspartate Amino Transferase 28 U/L (14-36); Bilirubin,Total 0.6 mg/dL (0.2-1.3); Blood Urea Nitrogen 5 mg/dL (7-17); Calcium 8.9 mg/dL (8.4-10.2); Carbon Dioxide 23 mmol/L (22-30); Chloride 103 mmol/L (98-107); Estimated CRCL calculation 137 ml/min; Estimated Glomerular Filt Rate > 60; Glucose 80 mg/dL (65-110); Potassium 3.4 mmol/L (3.4-5.0); Sodium 133 mmol/L (137-145); Total Protein 6.8 g/dL (6.3-8.2)
--- NOTE | 2025-04-28 18:10 | PC.NURSE ---
1734-Patient arrived to OB unit with complaints of N/V since yesterday. Patient was seen here yesterday for the same complaint. Patient notified RN that she got a scopolamine patch and still has it on for the N/V. Patient states she was able to eat dinner with no issues last night, but did wake up today feeling like she did yesterday before dinner and has not been able to keeping anything down PO all day. Patient denies feeling contractions. Patient states she has great movement. Patient denies any leaking of fluid or vaginal bleeding. 1806- RN notified Dr. Steele of patient arrival and patient complaints. RN notified MD of FHT tracing with moderate variability. RN also notified MD that patient denied feeling contractions, but is blaze. RN notified MD that RN explained what a contraction could feel like and that the patient now is feeling some of them. RN also notified MD of patient's visit here yesterday and what care was given as well as medications. RN also notified MD of lab results as well as patient's VS. MD gave orders for medications, see MAR. MD also gave a terb order if fluids do not stop contractions. MD also gave orders to do a speculum exam to visualize patient's cervix due to contractions.
[2025-04-28] MEDS: ONDANSETRON INJ 4 MG/2 ML VIAL IV PUSH (18:25)
[2025-04-28] MEDS: DEXTROSE 5%/LACTATED RINGERS 1,000 ML 999 ML IV CONT (18:25)
--- NOTE | 2025-04-28 18:37 | PC.NURSE ---
1800- Report given to Wolfgang Thurman RN
--- NOTE | 2025-04-28 18:47 | PC.NURSE ---
1830- Cervix visualized by this RN. No signs of bleeding visualized, cervix is closed.
[2025-04-28] MEDS: LACTATED RINGERS 1,000 ML 125 ML IV CONT (19:30)
[2025-04-28] MEDS: TERBUTALINE SULFATE 1 MG/ML VIAL 0.25 MG SUB-Q (19:43)
--- NOTE | 2025-05-30 10:15 | PM.OBTRLD ---
OB - Triage/Final Diagnosis Visit Information Comments/Additional reasons for admission: I have assessed the risk for this patient, Gabby Jose, and determined that she would benefit from observation care. Evaluation Laboratory results: Laboratory Tests 04/28/25 17:46 WBC 14.3 H RBC 4.16 L Hgb 12.7 Hct 37.9 MCV 91.1 MCH 30.5 MCHC 33.5 RDW 13.1 Plt Count 115 L MPV 12.4 H Immature Gran % (Auto) 0.7 H Neut % (Auto) 80.8 H Lymph % (Auto) 11.8 L [place] % (Auto) 6.2 Eos % (Auto) 0.2 Baso % (Auto) 0.3 Lymph # (Auto) 1.68 [place] # (Auto) 0.9 H Eos # (Auto) 0.0 Baso # (Auto) 0.0 Abs Immat Gran (auto) 0.10 H Absolute Neuts (auto) 11.5 H Absolute Nucleated RBC 0.000 Nucleated RBC % 0.0 Sodium 133 L Potassium 3.4 Chloride 103 Carbon Dioxide 23 Anion Gap 7 BUN 5 L Creatinine 0.54 L Estim Creat Clear Calc 137 Estimated GFR > 60 Glucose 80 Calcium 8.9 Total Bilirubin 0.6 AST 28 ALT 10 Alkaline Phosphatase 59 Total Protein 6.8 Albumin 3.9 Urine Color Yellow Urine Appearance Cloudy H Urine pH 6.5 Ur Specific [place] 1.006 Urine Protein Negative Urine Glucose (UA) Negative Urine Ketones 2+ H Ur Blood (Man) Negative Urine Nitrate Negative Urine Bilirubin Negative Urine Urobilinogen 0.2 Leukocyte Esterase Rfl 1+ H Urine RBC 0-2 Urine WBC 6-10 H Ur Squamous Epith Cells Occasional Urine Bacteria None seen Urine Casts 0-2 Final Diagnosis (1) Nausea and vomiting: Code(s): R11.2 - Nausea with vomiting, unspecified Status: Acute
== END 2025-04-28 20:23 | disposition home or self-care (01) ==
PROVIDERS: Admitting Provider Obstetrics & Gynecology; Visit Provider Obstetrics & Gynecology
DX: O21.2 Late vomiting of pregnancy (principal); Z3A.23 23 weeks gestation of pregnancy; R82.90 Unspecified abnormal findings in urine
CPT/HCPCS: 36415; 80053; 81001; 85025; 87086; 96372; 96374; G0378; G0379; J2405; J3105; J7120; J7121

== ENCOUNTER 2025-05-29 16:35 | Outpatient (RCR) | payer BC, OTHER, SELFPAY ==
[2025-05-29 17:19] VITALS: BP 124/85; PULSE 94
== END 2025-08-19 11:42 | disposition other institution (70) ==
LOC: ANHOBOP 16:35
PROVIDERS: Visit Provider Obstetrics & Gynecology
DX: O36.8130 Decreased fetal movements, third trimester, not applicable or unspecified (principal); Z3A.28 28 weeks gestation of pregnancy
CPT/HCPCS: 59025

== ENCOUNTER 2025-07-03 08:20 | Outpatient (RCR) | payer BC, MEDICAID, SELFPAY ==
--- NOTE | ~2025-07-03 | US_ITS ---
EXAMINATION: US OB BPP wo non-stress DATE: 07/03/2025 10:23 INDICATION: DFM TECHNIQUE: Real-time pelvic ultrasound was performed. The interpreting radiologist was not present for the study. COMPARISON: None. FINDINGS: There is a single living fetus in vertex presentation. The placenta is anterior. cardiac activity and movement are demonstrated. heart rate is 139 beats per minute (bpm). Cervical length measures 4.5 cm. Biophysical profile performed by the technologist: breathing (30 sec sustained breathing in 30 minutes): 2 out of 2 movement (3 gross body movements in 30 minutes): 2 out of 2 tone (one episode of qwlkblv-cemihjpde-mimecpk limb movement): 2 out of 2 Amniotic fluid pocket (2 cm): 2 out of 2 Total score: 8 out of 8 IMPRESSION: 1. Single living intrauterine in vertex presentation with heart rate of with heart rate of 139 bpm. 2. Biophysical profile 8 out of 8. Reviewed, dictated and finalized at location Q. ROOM ENGINEER
== END 2025-08-19 11:42 | disposition other institution (70) ==
LOC: ANHOBOP 08:20
PROVIDERS: Visit Provider Obstetrics & Gynecology
DX: O36.8130 Decreased fetal movements, third trimester, not applicable or unspecified (principal); Z3A.33 33 weeks gestation of pregnancy
CPT/HCPCS: 59025; 76819

== ENCOUNTER 2025-07-26 07:27 | Outpatient (CLI) | payer BC, OTHER, SELFPAY ==
--- NOTE | ~2025-07-26 | US_ITS ---
US abdomen limited Indication: Acquired thrombocytopenia Comparison: None Technique: Lopez-scale and color Doppler images were obtained. Findings: LIVER: No liver lesions identified. . The liver measures 18 cm. GALLBLADDER/BILIARY: Unremarkable.No cholelithiais, wall thickening or pericholecystic fluid. No biliary dilatation. CBD 3 mm. [place] sign negative. PANCREAS: Pancreas limited by bowel gas. Right Kidney: Right kidney limited but grossly unremarkable measuring 11.8 x 4 x 5.4 cm. Incidental images of the spleen demonstrate a spleen measuring 14.6 cm. Impression: 1. No acute process. 2. Nonspecific mild splenomegaly Reviewed, dictated and finalized at location P. ER FRAME OPERATOR Impression: 1. No acute process. 2. Nonspecific mild splenomegaly
--- OUTSIDE RECORDS SUMMARY | 2025-07-26 07:31 | XMS_ITS | Continuity of Care Document ---
Author Organization [facility] Address [address] [place] [address] [place] [address] Care Team Providers Care Process Operator Name Role Phone SHERYL DICKSON Primary Care Provider [phone] Assessment No assessment recorded. Plan of Treatment Reminders Order Date Submit Date Provider Last Modified By Organization Details Last Modified Time Details Appointments OB ROUTINE 2024 02:45P Cosmo TOMLINSON MD Not available Not available Not available INDUCTION 2024 04:00P Cosmo TOMLINSON MD Not available Not available Not available Lab CBC w/ auto diff 2024 025 [facility] (Lab), [address], [place], [address], 05/31/2025 12:26:07 Referral None recorded. Procedures None recorded. Surgeries None recorded. Imaging None recorded. Medication Orders None recorded. Patient TargetsNo targets recorded. Patient InstructionsNo instructions recorded. Reason for Referral None Reported. Results Created Date Observation Date Name Description Value Unit Range Abnormal Flag Note LastModifiedBy Organization Detail LastModifiedTime 02/17/2002/16/2025 [UNIT Y] ANEUP LOIDY NIPT fraction 15.3% normal Not Available [facility] [address], [place], [address], 02/16/2025 19:59:32 02/17/20 25 02/16/2025 [UNIT Y] ANEUP LOIDY NIPT 22Q11.2 microdeletio n LOW RISK <1 in 10,000 normal Not Available [facility] [address], [place], [address], 02/16/2025 19:59:32 02/17/20 25 02/16/2025 [UNIT Y] ANEUP LOIDY NIPT sex chromosome aneuploidy NOT DETECT ED normal Not Available [facility] [address], [place], [address], 02/16/2025 19:59:32 02/17/20 25 02/16/2025 [UNIT Y] ANEUP LOIDY NIPT monosomy X LOW RISK <1 in 10,000 normal Not Available [facility] [address], [place], [address], 02/16/2025 19:59:32 02/17/20 25 02/16/2025 [UNIT Y] ANEUP LOIDY NIPT trisomy 13 LOW RISK <1 in 10,000 normal Not Available [facility] [address], [place], [address], 02/16/2025 19:59:32 02/17/20 25 02/16/2025 [UNIT Y] ANEUP LOIDY NIPT trisomy 18 LOW RISK <1 in 10,000 normal Not Available [facility] [address], [place], [address], 02/16/2025 19:59:32 02/17/20 25 02/16/2025 [UNIT Y] ANEUP LOIDY NIPT trisomy 21 LOW RISK <1 in 10,000 normal Not Available [facility] [address], [place], [address], 02/16/2025 19:59:32 02/17/20 25 02/16/2025 [UNIT Y] ANEUP LOIDY NIPT sex MALE normal Not Available [facility] [address], [place], [address], 02/16/2025 19:59:32 02/17/20 25 02/16/2025 [UNIT Y] ANEUP LOIDY NIPT gestation SINGLE TON normal Not Available [facility] [address], [place], [address], 02/16/2025 19:59:32 02/17/20 25 02/16/2025 [UNIT Y] ANEUP LOIDY NIPT for detailed report, see pdf See PDF normal Not Available [facility] [address], [place], [address], 02/16/2025 19:59:32 02/22/20 25 02/21/2025 [UNIT Y] FLETCHER Rose sickle cell disease/beta -thalassemia /hemoglobino pathies carrier screen NEGATI VE normal Not Available [facility] [address], [place], [address], 02/21/2025 14:09:41 02/22/20 25 02/21/2025 [UNIT Y] FLETCHER Rose alpha-thalas semia carrier screen NEGATI VE normal Not Available [facility] [address], [place], [address], 02/21/2025 14:09:41 02/22/20 25 02/21/2025 [UNIT Y] FLETCHER Rose cystic fibrosis carrier screen NEGATI VE normal Not Available [facility] [address], [place], [address], 02/21/2025 14:09:41 02/22/20 25 02/21/2025 [UNIT Y] FLETCHER Rose spinal muscular atrophy carrier screen NEGATI VE 2 SMN1 copies , SNP not presen t normal Not Available [facility] [address], [place], [address], 02/21/2025 14:09:41 02/22/20 25 02/21/2025 [UNIT Y] FLETCHER Rose for detailed report, see pdf See PDF normal Not Available [facility] [address], [place], [address], 02/21/2025 14:09:41 02/11/20 25 02/10/2025 CT/GC AND TRICH OMONA S VAGIN KARLO (RRNA ), URINE chlamydia trachomatis, PCR Negati ve negati ve Not Available [place] [facility] (Lab) [address], [place], [address], 02/11/2025 12:05:33 02/11/20 25 02/10/2025 CT/GC AND TRICH OMONA S VAGIN KARLO (RRNA ), URINE neisseria gonorrhoeae, PCR Negati ve negati ve Not Available [place] [facility] (Lab) [address], [place], [address], 02/11/2025 12:05:33 02/11/20 25 02/10/2025 CT/GC AND TRICH OMONA S VAGIN KARLO (RRNA ), URINE trichomonas vaginalis ribosomal RNA (rrna) Negati ve negati ve Not Available [place] [facility] (Lab) [address], [place], [address], 02/11/2025 12:05:33 02/11/20 25 02/10/2025 CBC W/DIF F WBC 8.7 10'3/ uL 3.5-10 .5 Not Available [place] [facility] (Lab) [address], [place], [address], 02/11/2025 13:44:37 02/11/20 25 02/10/2025 CBC W/DIF F RBC 4.55 10'6/ uL (based on docume nted legal sex) 3.80-5 .20 Not Available [place] [facility] (Lab) [address] [place], [address], 02/11/2025 13:44:37 02/11/20 25 02/10/2025 CBC W/DIF F HGB 13.7 g/dL (based on docume nted legal sex) 11.6-1 5.4 Not Available [place] [facility] (Lab) [address], [place], [address], 02/11/2025 13:44:37 02/11/20 25 02/10/2025 CBC W/DIF F HCT 40.8 % (based on docume nted legal sex) 34.0-4 5.0 Not Available [place] [facility] (Lab) [address], [place], [address], 02/11/2025 13:44:37 02/11/20 25 02/10/2025 CBC W/DIF F MCV 89.7 fL 80.0-9 9.0 Not Available [place] [facility] (Lab) [address], [place], [address], 02/11/2025 13:44:37 02/11/20 25 02/10/2025 CBC W/DIF F MCH 30.1 pg 27.0-3 4.0 Not Available [place] [facility] (Lab) [address], [place], [address], 02/11/2025 13:44:37 02/11/20 25 02/10/2025 CBC W/DIF F MCHC 33.6 g/dL 32.0-3 5.5 Not Available [place] [facility] (Lab) [address], [place], [address], 02/11/2025 13:44:37 02/11/20 25 02/10/2025 CBC W/DIF F RDW 12.8 % 11.0-1 5.0 Not Available [place] [facility] (Lab) [address], [place], [address], 02/11/2025 13:44:37 02/11/20 25 02/10/2025 CBC W/DIF F plt 125 10'3/ uL 150-40 0 low Not Available [place] [facility] (Lab) [address], [place], [address], 02/11/2025 13:44:37 02/11/20 25 02/10/2025 CBC W/DIF F MPV 13.5 fL 8.8-12 .1 high Not Available [place] [facility] (Lab) [address], [place], [address], 02/11/2025 13:44:37 02/11/20 25 02/10/2025 CBC W/DIF F NRBC's 0.0 % 0.0 Not Available [place] [facility] (Lab) [address], [place], [address], 02/11/2025 13:44:37 02/11/20 25 02/10/2025 CBC W/DIF F absolute NRBCs 0.0 10'3/ uL no refere nce range establ ished Not Available [place] [facility] (Lab) [address], [place], [address], 02/11/2025 13:44:37 02/11/20 25 02/10/2025 CBC W/DIF F neutrophils 76.5 % 34.0-7 3.0 high Not Available [place] [facility] (Lab) [address], [place], [address], 02/11/2025 13:44:37 02/11/20 25 02/10/2025 CBC W/DIF F lymphocytes 14.4 % 15.0-5 0.0 low Not Available [place] [facility] (Lab) [address], [place], [address], 02/11/2025 13:44:37 02/11/20 25 02/10/2025 CBC W/DIF F monocytes 8.3 % 1.0-15 .0 Not Available [place] [facility] (Lab) [address], [place], [address], 02/11/2025 13:44:37 02/11/20 25 02/10/2025 CBC W/DIF F eosinophils 0.3 % 0.0-8. 0 Not Available [place] [facility] (Lab) [address] [place], [address], 02/11/2025 13:44:37 02/11/20 25 02/10/2025 CBC W/DIF F basophils 0.3 % 0.0-2. 0 Not Available [place] [facility] (Lab) [address], [place], [address], 02/11/2025 13:44:37 02/11/20 25 02/10/2025 CBC W/DIF F immature granulocytes 0.2 % no define d refere nce range Immat ure Granu locyt es (IG) repre sents autom ated enume ratio n of Metam yeloc ytes, Myelo cytes and Promy elocy umair when IG is < 5%. Blast s are not inclu ded in IG and repor alfredo separ ately if prese nt. Not Available [place] [facility] (Lab) [address], [place], [address], 02/11/2025 13:44:37 02/11/20 25 02/10/2025 CBC W/DIF F absolute neutrophils 6.6 10'3/ uL 1.5-8. 0 Not Available [place] [facility] (Lab) [address], [place], [address], 02/11/2025 13:44:37 02/11/20 25 02/10/2025 CBC W/DIF F absolute lymphocytes 1.3 10'3/ uL 1.0-4. 0 Not Available [place] [facility] (Lab) [address], [place], [address], 02/11/2025 13:44:37 02/11/20 25 02/10/2025 CBC W/DIF F absolute monocytes 0.7 10'3/ uL 0.2-1. 0 Not Available [place] [facility] (Lab) [address], [place], [address], 02/11/2025 13:44:37 02/11/20 25 02/10/2025 CBC W/DIF F absolute eosinophils 0.0 10'3/ uL 0.0-0. 6 Not Available [place] [facility] (Lab) [address], [place], [address], 02/11/2025 13:44:37 02/11/20 25 02/10/2025 CBC W/DIF F absolute basophils 0.0 10'3/ uL 0.0-0. 3 Not Available [place] [facility] (Lab) [address], [place], [address], 02/11/2025 13:44:37 02/11/20 25 02/10/2025 CBC W/DIF F absolute immature granulocytes 0.0 10'3/ uL 0.00-0 .10 Refer ence range s for nonbi nary/ inter sex or unspe cifie d gende r patie nts have not been estab lishe d. Casey e refer [facility] for range s estab lishe d for cisge nder patie nts and evalu ate in the clini randal kiera xt of the indiv idual patie nt: https ://la and book. nm.or g/gen derx Not Available [place] [facility] (Lab) [address], [place], [address], 02/11/2025 13:44:37 02/11/20 25 02/10/2025 HIV 1/2 ANTIG EN/AN TIBOD Y, REFLE X CONFI RMATI ON HIV antigen/anti body Nonrea ctive nonrea ctive HIV-1 antig en and HIV-1 /HIV- 2 antib odies were not detec alfredo. No labor atory evide nce of HIV infec tion. Not Available [place] [facility] (Lab) [address] [place], [address], 02/11/2025 13:44:38 02/11/2002/10/2025 HEPAT ITIS B SURFA CE ANTIG EN hepatitis B surface antigen Non-re active non-re active This assay was perfo rmed using [employer] ratio n reage nts and test kits. Value s obtai evelyn with other assay metho ds or kits canno t be used inter collins eably . Not Available [place] [facility] (Lab) [address] [place], [address], 02/11/2025 13:44:38 02/11/20 25 02/10/2025 HEPAT ITIS C ANTIB TIM SCREE N, REFLE X TO CONFI RMATI ON hepatitis C antibody Non-re active non-re active Antib odies to HCV Not Detec alfredo, does not exclu de the possi bilit y of expos ure to HCV. Not Available [place] [facility] (Lab) [address], [place], [address], 02/11/2025 13:44:39 02/11/20 25 02/10/2025 RUBEL LA IGG ANTIB TIM, QUANT rubella antibodies, IgG Reacti ve reacti ve Not Available [place] [facility] (Lab) [address], [place], [address], 02/11/2025 13:44:39 02/11/20 25 02/10/2025 RUBEL LA IGG ANTIB TIM, QUANT rubella antibodies, IgG quant 47.1 IU/mL >=10 Non-r eacti ve (Non- Immun e) <10 IU/mL React kvng (Immu ne) > or = 10 IU/mL Not Available [place] [facility] (Lab) [address], [place], [address], 02/11/2025 13:44:39 02/11/20 25 02/10/2025 TYPE/ RH/SC REEN ABO/Rh type O POS Not Available [facility] (Lab) [address] [place], [address], 02/11/2025 13:44:40 02/11/20 25 02/10/2025 TYPE/ RH/SC REEN antibody screen NEG Not Available [facility] (Lab) [address] [place], [address], 02/11/2025 13:44:40 02/11/20 25 02/10/2025 TYPE/ RH/SC REEN exp date 2024 23:59 Not Available [place] [facility] (Lab) [address], [place], [address], 02/11/2025 13:44:40 02/11/20 25 02/10/2025 HEMOG LOBIN A1C hemoglobin A1C 5.1 % 4.0-5. 6 The Ameri can [employer] um[employer] i[employer] n recom mends that a prima ry goal of thera py shoul d be a HBA1C of < 7% and that physi cians shoul d reeva luate the treat ment regim en in patie nts with HBA1C value s consi stent ly > 8%. <5.7% Vianey l 5.7 - 6.4% Incre ased risk for diabe umair >=6.5 % Diagn ostic of diabe umair <7.0% Goal of thera py >8.0% Actio n sugge sted Not Available [place] [facility] (Lab) [address] [place], [address], 02/11/2025 13:44:40 02/11/20 25 02/10/2025 RPR SCREE N, REFLE X TITER /CONF IRMAT ION RPR qualitative Nonrea ctive nonrea ctive Not Available [place] [facility] (Lab) [address], [place], [address], 02/11/2025 13:44:41 02/11/20 25 02/10/2025 drug scree n, urine Amphetamines : negati ve Not Available [place] [address], [place], [address], 02/10/2025 12:55:20 02/11/20 25 02/10/2025 drug scree n, urine Cannabinoids : negati ve Not Available [place] [address], [place], [address], 02/10/2025 12:55:20 02/11/20 25 02/10/2025 drug scree n, urine Cocaine: negati ve Not Available [place] [address], [place], [address], 02/10/2025 12:55:20 02/11/20 25 02/10/2025 drug scree n, urine Opiates: negati ve Not Available [place] [address], [place], [address], 02/10/2025 12:55:20 02/11/20 25 02/10/2025 drug scree n, urine Barbiturates : negati ve Not Available [place] [address], [place], [address], 02/10/2025 12:55:20 02/11/20 25 02/10/2025 drug scree n, urine Benzodiazepi john: negati ve Not Available [place] [address], [place], [address], 02/10/2025 12:55:20 03/10/20 25 03/10/2025 CULTU RE: URINE result report SEE RESULT S BELOW Test: Cultu re: Urine Speci men Sourc e: Urine Voide d Speci men Type: Urine Speci men Date: 202438 Resul t Date: 2024 Resul t Statu s: Final resul t Abnor mal: No Resul ting Lab: [facility] [address] [facility] [place] [address] Tel: CULTU RE ----- ----- ----- --- No growt h in 1 day (dete ction level of 10,00 0 colon ies / ml.) Not Available [facility] (Lab) [address], [place], [address], 03/11/2025 23:15:50 04/03/20 25 04/03/2025 CBC W/DIF F WBC 12.9 10'3/ uL 3.5-10 .5 high Not Available [facility] (Lab) [address], [place], [address], 04/04/2025 04:39:51 04/03/20 25 04/03/2025 CBC W/DIF F RBC 4.33 10'6/ uL (based on docume nted legal sex) 3.80-5 .20 Not Available [facility] (Lab) [address], [place], [address], 04/04/2025 04:39:51 04/03/2004/03/2025 CBC W/DIF F HGB 13.2 g/dL (based on docume nted legal sex) 11.6-1 5.4 Not Available [facility] (Lab) [address], [place], [address], 04/04/2025 04:39:51 04/03/2004/03/2025 CBC W/DIF F HCT 40.2 % (based on docume nted legal sex) 34.0-4 5.0 Not Available [facility] (Lab) [address], [place], [address], 04/04/2025 04:39:51 04/03/2004/03/2025 CBC W/DIF F MCV 92.8 fL 80.0-9 9.0 Not Available [facility] (Lab) [address], [place], [address], 04/04/2025 04:39:51 04/03/2004/03/2025 CBC W/DIF F MCH 30.5 pg 27.0-3 4.0 Not Available [facility] (Lab) [address], [place], [address], 04/04/2025 04:39:51 04/03/2004/03/2025 CBC W/DIF F MCHC 32.8 g/dL 32.0-3 5.5 Not Available [facility] (Lab) [address] [place], [address], 04/04/2025 04:39:51 04/03/2004/03/2025 CBC W/DIF F RDW 13.0 % 11.0-1 5.0 Not Available [facility] (Lab) [address], [place], [address], 04/04/2025 04:39:51 04/03/2004/03/2025 CBC W/DIF F plt 131 10'3/ uL 150-40 0 low Not Available [facility] (Lab) [address], [place], [address], 04/04/2025 04:39:51 04/03/2004/03/2025 CBC W/DIF F MPV 13.9 fL 8.8-12 .1 high Not Available [facility] (Lab) [address], [place], [address], 04/04/2025 04:39:51 04/03/2004/03/2025 CBC W/DIF F NRBC's 0.0 % 0.0 Not Available [facility] (Lab) [address], [place], [address], 04/04/2025 04:39:51 04/03/2004/03/2025 CBC W/DIF F absolute NRBCs 0.0 10'3/ uL no refere nce range establ ished Not Available [facility] (Lab) [address], [place], [address], 04/04/2025 04:39:51 04/03/2004/03/2025 CBC W/DIF F neutrophils 76.6 % 34.0-7 3.0 high Not Available [facility] (Lab) [address], [place], [address], 04/04/2025 04:39:51 04/03/20 25 04/03/2025 CBC W/DIF F lymphocytes 14.2 % 15.0-5 0.0 low Not Available [facility] (Lab) [address], [place], [address], 04/04/2025 04:39:51 04/03/2004/03/2025 CBC W/DIF F monocytes 7.6 % 1.0-15 .0 Not Available [facility] (Lab) [address], [place], [address], 04/04/2025 04:39:51 04/03/2004/03/2025 CBC W/DIF F eosinophils 0.7 % 0.0-8. 0 Not Available [facility] (Lab) [address], [place], [address], 04/04/2025 04:39:51 04/03/2004/03/2025 CBC W/DIF F basophils 0.4 % 0.0-2. 0 Not Available [facility] (Lab) [address], [place], [address], 04/04/2025 04:39:51 04/03/2004/03/2025 CBC W/DIF F immature granulocytes 0.5 % no define d refere nce range Immat ure Granu locyt es (IG) repre sents autom ated enume ratio n of Metam yeloc ytes, Myelo cytes and Promy elocy umair when IG is < 5%. Blast s are not inclu ded in IG and repor alfredo separ ately if prese nt. Not Available [facility] (Lab) [address], [place], [address], 04/04/2025 04:39:51 04/03/2004/03/2025 CBC W/DIF F absolute neutrophils 9.9 10'3/ uL 1.5-8. 0 high Not Available [facility] (Lab) [address], [place], [address], 04/04/2025 04:39:51 04/03/2004/03/2025 CBC W/DIF F absolute lymphocytes 1.8 10'3/ uL 1.0-4. 0 Not Available [facility] (Lab) [address], [place], [address], 04/04/2025 04:39:51 04/03/2004/03/2025 CBC W/DIF F absolute monocytes 1.0 10'3/ uL 0.2-1. 0 Not Available [facility] (Lab) [address], [place], [address], 04/04/2025 04:39:51 04/03/2004/03/2025 CBC W/DIF F absolute eosinophils 0.1 10'3/ uL 0.0-0. 6 Not Available [facility] (Lab) [address], [place], [address], 04/04/2025 04:39:51 04/03/2004/03/2025 CBC W/DIF F absolute basophils 0.1 10'3/ uL 0.0-0. 3 Not Available [facility] (Lab) [address], [place], [address], 04/04/2025 04:39:51 04/03/2004/03/2025 CBC W/DIF F absolute immature granulocytes 0.1 10'3/ uL 0.00-0 .10 Refer ence range s for nonbi nary/ inter sex or unspe cifie d gende r patie nts have not been estab lishe d. Pleas e refer to the [facility] table for range s estab lishe d for cisge nder patie nts and evalu ate in the clini randal kiera xt of the indiv idual patie nt: https :[email or web address] [email or web address] book. nm.or g/gen derx Not Available [facility] (Lab) [address], [place], [address], 04/04/2025 04:39:51 05/02/2005/02/2025 CULTU RE: URINE result report SEE RESULT S BELOW Test: Cultu re: Urine Speci men Sourc e: Urine - Clean Catch Speci men Type: Urine Speci men Date: 1502 Resul t Date: 0404 Resul t Statu s: Final resul t Abnor mal: No Resul ting Lab: [facility] [address] [facility] [address] [facility] [address] [facility] [address] Tel: [phone] CULTU RE ----- ----- ----- --- No growt h in 1 day (dete ction level of 10,00 0 colon ies / ml.) Not Available [facility] (Lab) [address], [place], [address], 05/04/2025 05:09:17 05/30/20 25 05/30/2025 CBC W/DIF F WBC 11.9 10'3/ uL 3.5-10 .5 high Not Available [facility] (Lab) [address], [place], [address], 05/31/2025 12:26:07 05/30/20 25 05/30/2025 CBC W/DIF F RBC 3.98 10'6/ uL (based on docume nted legal sex) 3.80-5 .20 Not Available [facility] (Lab) [address], [place], [address], 05/31/2025 12:26:07 05/30/20 25 05/30/2025 CBC W/DIF F HGB 12.4 g/dL (based on docume nted legal sex) 11.6-1 5.4 Not Available [facility] (Lab) [address], [place], [address], 05/31/2025 12:26:07 05/30/20 25 05/30/2025 CBC W/DIF F HCT 36.8 % (based on docume nted legal sex) 34.0-4 5.0 Not Available [facility] (Lab) [address] [place], [address], 05/31/2025 12:26:07 05/30/20 25 05/30/2025 CBC W/DIF F MCV 92.5 fL 80.0-9 9.0 Not Available [facility] (Lab) [address] [place], [address], 05/31/2025 12:26:07 05/30/20 25 05/30/2025 CBC W/DIF F MCH 31.2 pg 27.0-3 4.0 Not Available [facility] (Lab) [address], [place], [address], 05/31/2025 12:26:07 05/30/20 25 05/30/2025 CBC W/DIF F MCHC 33.7 g/dL 32.0-3 5.5 Not Available [facility] (Lab) [address], [place], [address], 05/31/2025 12:26:07 05/30/20 25 05/30/2025 CBC W/DIF F RDW 13.4 % 11.0-1 5.0 Not Available [facility] (Lab) [address], [place], [address], 05/31/2025 12:26:07 05/30/20 25 05/30/2025 CBC W/DIF F plt 113 10'3/ uL 150-40 0 low Not Available [facility] (Lab) [address], [place], [address], 05/31/2025 12:26:07 05/30/20 25 05/30/2025 CBC W/DIF F MPV 13.8 fL 8.8-12 .1 high Not Available [facility] (Lab) [address], [place], [address], 05/31/2025 12:26:07 05/30/20 25 05/30/2025 CBC W/DIF F NRBC's 0.0 % 0.0 Not Available [facility] (Lab) [address], [place], [address], 05/31/2025 12:26:07 05/30/20 25 05/30/2025 CBC W/DIF F absolute NRBCs 0.0 10'3/ uL no refere nce range establ ished Not Available [facility] (Lab) [address], [place], [address], 05/31/2025 12:26:07 05/30/20 25 05/30/2025 CBC W/DIF F neutrophils 79.4 % 34.0-7 3.0 high Not Available [facility] (Lab) [address] [place], [address], 05/31/2025 12:26:07 05/30/20 25 05/30/2025 CBC W/DIF F lymphocytes 10.8 % 15.0-5 0.0 low Not Available [facility] (Lab) [address], [place], [address], 05/31/2025 12:26:07 05/30/20 25 05/30/2025 CBC W/DIF F monocytes 7.7 % 1.0-15 .0 Not Available [facility] (Lab) [address], [place], [address], 05/31/2025 12:26:07 05/30/20 25 05/30/2025 CBC W/DIF F eosinophils 0.8 % 0.0-8. 0 Not Available [facility] (Lab) [address] [facility], [place], [address], 05/31/2025 12:26:07 05/30/20 25 05/30/2025 CBC W/DIF F basophils 0.4 % 0.0-2. 0 Not Available [facility] (Lab) [address] [facility], [place], [address], 05/31/2025 12:26:07 05/30/20 25 05/30/2025 CBC W/DIF F immature granulocytes 0.9 % no define d refere nce range Immat ure Granu locyt es (IG) repre sents autom ated enume ratio n of Metam yeloc ytes, Myelo cytes and Promy elocy umair when IG is < 5%. Blast s are not inclu ded in IG and repor alfredo separ ately if prese nt. Not Available [facility] (Lab) [address] [facility], [place], [address], 05/31/2025 12:26:07 05/30/20 25 05/30/2025 CBC W/DIF F absolute neutrophils 9.5 10'3/ uL 1.5-8. 0 high Not Available [facility] (Lab) [address] [facility], [place], [address], 05/31/2025 12:26:07 05/30/20 25 05/30/2025 CBC W/DIF F absolute lymphocytes 1.3 10'3/ uL 1.0-4. 0 Not Available [facility] (Lab) [address] [facility], [place], [address], 05/31/2025 12:26:07 05/30/20 25 05/30/2025 CBC W/DIF F absolute monocytes 0.9 10'3/ uL 0.2-1. 0 Not Available [facility] (Lab) [address] [facility], [place], [address], 05/31/2025 12:26:07 05/30/20 25 05/30/2025 CBC W/DIF F absolute eosinophils 0.1 10'3/ uL 0.0-0. 6 Not Available [facility] (Lab) [address] [facility], [place], [address], 05/31/2025 12:26:07 05/30/20 25 05/30/2025 CBC W/DIF F absolute basophils 0.1 10'3/ uL 0.0-0. 3 Not Available [facility] (Lab) [address] [facility], [place], [address], 05/31/2025 12:26:07 05/30/20 25 05/30/2025 CBC W/DIF F absolute immature granulocytes 0.1 10'3/ uL 0.00-0 .10 Refer ence range s for nonbi nary/ inter sex or unspe cifie d gende r patie nts have not been estab lishe d. Pleluis e refer to the tony santos table for range s estab lishe d for cisge nder patie nts and evalu ate in the clini randal kiera xt of the indiv idual patie nt: [email or web address] :[email or web address] [email or web address] [email or web address] g/gen derx Not Available [facility] (Lab) [address], [place], [address], 05/31/2025 12:26:07 05/30/20 25 05/30/2025 HIV 1/2 ANTIG EN/AN TIBOD Y, REFLE X CONFI RMATI ON HIV antigen/anti body Nonrea ctive nonrea ctive HIV-1 antig en and HIV-1 /HIV- 2 antib odies were not detec alfredo. No labor atory evide nce of HIV infec tion. Not Available [facility] (Lab) [address], [place], [address], 05/31/2025 12:26:07 05/30/20 25 05/30/2025 GTT - GESTA REGAN L SCREE N, ACOG OB glucose, 1 hour screen 82 mg/dL 70-135 Not Available [facility] (Lab) [address], [place], [address], 05/31/2025 12:26:08 05/30/20 25 05/30/2025 RPR SCREE N, REFLE X TITER /CONF IRMAT ION RPR qualitative Nonrea ctive nonrea ctive Not Available [facility] (Lab) [address] [place], [address], 05/31/2025 12:26:08 02/11/20 25 02/10/2025 US, obste tric, nucha l trans lucen cy No observ ation record ed. [facility] [address], [place], [address], 02/10/2025 18:38:42 02/11/20 25 02/10/2025 US, obste tric, follo w-up No observ ation record ed. [email or web address] [facility] [address], [place], [address], 02/13/2025 09:20:03 04/03/20 25 04/03/2025 US, obste tric, 2nd or 3rd trime ster No observ ation record ed. [email or web address] [place] [address], [place], [address], 04/03/2025 18:43:20 04/03/20 25 04/03/2025 US, obste tric, 2nd or 3rd trime ster No observ ation record ed. [email or web address] [facility] [address], [place], [address], 04/05/2025 17:47:52 04/21/20 25 04/21/2025 non-s tress test No observ ation record ed. [address], [place], [address], 04/24/2025 12:03:28 05/02/20 25 05/02/2025 US, obste tric, follo w-up No observ ation record ed. [email or web address] [place] [address], [place], [address], 05/02/2025 12:58:26 05/02/20 25 05/02/2025 US, obste tric, follo w-up No observ ation record ed. ROBERT [facility] [address], [place], [address], 05/03/2025 18:13:01 05/29/20 25 05/29/2025 non-s tress test No observ ation record ed. [address], [place], [address], 05/31/2025 15:39:22 06/20/2006/20/2025 imagi ng/di agnos tic resul t No observ ation record ed. [facility] [address] [place], [address], 06/20/2025 13:33:45 06/20/2006/20/2025 US, obste tric, follo w-up No observ ation record ed. [email or web address] [facility] [address] [place], [address], 06/27/2025 17:32:46 07/03/2007/03/2025 non-s tress test No observ ation record ed. [address], [address], 07/19/2025 15:34:42 07/03/20 25 07/03/2025 imagi ng/di agnos tic resul t No observ ation record ed. [address], [address], 07/03/2025 11:55:37 Result Notes None recorded. Problems Name Problem SNOMED Code Status Onset Date Resolution Date Notes Provider Name and Address Organization Details Recorded Time Anxiety 68401131 Active 2024 Kristen sánchez [facility] 5 11:01:06 53401692 Active 2024 Aleah sánchez [facility] 5 11:57:32 Platelet count below reference range 436746896 Active 2024 Referral faxed to [facility] 06/01 scheduled 06/20 0900 Level II us and consult Zoey sánchez [facility] 5 11:50:53 Problem Notes None recorded. Procedures Surgical History Date Name Laterality Status Provider Name and Address Organization Details Recorded Time Date of Last Pap Smear completed Kristen Ruffin [facility] 01/13/2025 11:01:13 7 operative procedure on wrist completed Aleah Bedolla [facility] 02/10/2025 11:57:07 Imaging Results None recorded. Procedure Notes None recorded. Medical Equipment None Reported. Allergies No known drug allergies Medications Name Sig Start Date Stop Date Status Note LastModified by Organization Details LastModified Time buspirone 5 mg tablet TAKE 1 TO 2 TABLETS BY MOUTH THREE TIMES DAILY NEEDED FOR STRESS 01/13 completed Not Available Not Available Not Available Vitamin B-6 25 mg tablet TAKE 1 TABLET BY MOUTH THREE TIMES DAILY active Not Available Not Available No t Available ondansetron HCl 4 mg tablet Take 1 tablet every 6 hours by oral route as needed. 2024 active Not Available Not Available Not Avai lable triamcinolo ne acetonide 0.1 % topical cream APPLY TOPICALLY TO THE AFFECTED AREA TWICE DAILY NEEDED FOR IRRITATIO N 01/13 completed Not Available Not Available Not Available meclizine 25 mg tablet TAKE 1 TABLET BY MOUTH TWICE DAILY NEEDED FOR DIZZINESS active Not Available Not Available No t Available cephalexin 500 mg capsule TAKE 1 CAPSULE BY MOUTH EVERY 6 HOURS FOR 5 DAYS active Not Available Not Available No t Available nortriptyli ne 10 mg capsule TAKE 1 CAPSULE BY MOUTH EVERY NIGHT AT BEDTIME FOR ABDOMINAL CRAMPS 01/13 completed Not Available Not Available Not Available scopolamine 1 mg over 3 days transdermal patch APPLY 1 PATCH TOPICALLY TO THE SKIN EVERY 3 DAYS active Not Available Not Available No t Available metoclopram gay 10 mg tablet Take 1 tablet 3 times a day by oral route. 2024 active Not Available Not Available Not Avai lable Benadryl 25 mg capsule Take 1 capsule 3 times a day by oral route. 2024 active Not Available Not Available Not Avai lable clindamycin 1 % lotion APPLY TO THE AFFECTED AREA OF THE LEGS ONE TO TWO TIMES DAILY UNTIL CLEAR. THEN USE NEEDED FOR FLARES 01/13 completed Not Available Not Available Not Available active Not Available Not Avai lable Not Available FeroSul 325 mg (65 mg iron) tablet TAKE ONE TABLET BY MOUTH EVERY 2 DAYS active Not Available Not Available No t Available Vitafol-One 29 mg iron-1 mg-200 mg capsule TAKE 1 TABLET DAILY 2024 active Not Available Not Available Not Avai lable Vitafol Ultra 29 mg iron-1 mg-200 mg capsule Take 1 capsule every day by oral route. 2024 active Not Available Not Available Not Avai lable 71-iron 30 mg-folic 1.4 mg-dha 200 mg capsule,imm ed,del.rel take 1 tablet daily 2024 active Not Available Not Available Not Avai lable Vitals Date Recorded Body weight Systolic And Diastolic Provider Name and Address Organization Details Last Updated DateTime 05/30/2025 95591.93106 g 118/78 mm[Hg] Isabellorna Romero [facility] 05/30/2025 09:51:58 Social History Question Answer Notes LastModified by Organizat ion Details LastModified Time Tobacco Smoking Status Never Smoker Kristen sánchez, [facility] 01/13/2025 11:05:22 If You Are , What Was Your Level Of Alcohol Consumption Prior To ? Occasional [email or web address] Information not available 01/13/2025 Are You Blind Or Do You Have Difficulty Seeing? No [email or web address] Information n ot available 01/13/2025 What Is Your Level Of Caffeine Consumption? Occasional [email or web address] Information not available 01/13/2025 In The 14 Days Before Symptom Onset, Have You Had Close Contact With A Laboratory-confirm ed COVID-19 While That Case Was Ill? No [email or web address] Information n ot available 01/13/2025 In The 14 Days Before Symptom Onset, Have You Had Close Contact With A Person Who Is Under Investigation For COVID-19 While That Person Was Ill? No [email or web address] Information not available 01/13/2025 Have You Been To An Area Known To Be High Risk For COVID-19? No [email or web address] Information not available 01/13/2025 Are You Deaf Or Do You Have Serious Difficulty Hearing? No [email or web address] Information not available 01/13/2025 Do You Have Smoke And Carbon Monoxide Detectors In Your Home? Yes [email or web address] Information not available 01/13/2025 Do You Use Sunscreen Routinely? Yes [email or web address] Information not available 01/13/2025 Has Tobacco Cessation Counseling Been Provided? No [email or web address] Information not available 01/13/2025 Have You Used IV Drugs? No [email or web address] Information not available 01/13/2025 Do You Have Difficulty Walking Or Climbing Stairs? No [email or web address] Information not available 01/13/2025 Sex: Unknown Functional Status Question Answer Note LastModified by Organizat ion Details LastModified Time Do you use any illicit or recreational drugs? No [email or web address] Information not available 01/13/2025 Do you or have you ever used any other forms of tobacco or nicotine? Yes Information not available 01/13/2025 What is your level of alcohol consumption? None [email or web address] Information not available 01/13/2025 Are you able to walk independently without assistance or assistive devices? YESWOREST [email or web address] Information not available 01/13/2025 Are you able to care for yourself independently? Yes [email or web address] Information not available 01/13/2025 Do you have difficulty dressing, bathing, grooming, or toileting? No [email or web address] Information not available 01/13/2025 Do you or have you ever used e-cigarettes or vape? Former user of electronic cigarettes [email or web address] Information not available 01/13/2025 Mental Status None recorded. Family History Relationship Description Onset Age of this Age Resolved Age Notes LastModified by Organization Details LastModified Time Unspecified Relation Family history unknown [email or web address] Not available 2024 13:48:03 Paternal Grandfather Malignant neoplasm of prostate [email or web address] Not available 07/02 11:19:15 Maternal Grandfather Malignant neoplasm of lung [email or web address] Not available 01/13 11:03:40 Maternal Grandmother Malignant neoplasm of pancreas [email or web address] Not available 07/02 11:19:15 Maternal Aunt Malignant neoplasm of breast [email or web address] Not available 2024 13:48:03 Father Leukemia [email or web address] Not availa ble 07/24/2025 11:19:16 Mother Diabetes mellitus [email or web address] Not available 01/13 11:04:57 Medical History Condition [...] Smear 01/13/2025 LMP Definite Obstetrics History GPAL:G 1 P 0 0 0 0 Type Value Living 0 Total 1 Past Encounters Encounter ID Performer Location Encounter Start Date Encounter Closed Date Diagnosis/Indication Diagnosis SNOMED-CT Code Diagnosis ICD10 Code Diagnosis IMO Codes Diagnosis Note [id number] MD Jayjay [facility] [address] [facility] [place] [address] 05/02/2025 09:18:09 05/02/2025 10:11:24 Follow-up encounter [id number] Z36.2 Z3A.24 [id number] MD Jayjay [facility] [address] [facility] [place] [address] 05/02/2025 09:25:23 05/02/2025 10:55:47 Nausea and vomiting 98119422 R11.2 Second tri mester 22836117 Z34.02 [id number] MD Jayjay [facility] [address] [facility] [place] [address] 05/30/2025 09:40:10 05/30/2025 10:26:07 Thrombocytopenic disorder 764656006 D69.6 96759 - plt 125>131- repeat today Gestation period, 28 weeks 55123272 Z3A.28 4630404 Health Concerns Section Related Observation LastModified by Organization Detai ls LastModified Time None Recorded Concern Status LastModified by Organization Details LastModified Time None Recorded Payers Encounter Date Sequence Insurance Name Policy Number Policy Marie Covered Member ID Marie Member ID Guarantor Name 05/30/2025 2 [place] [facility] Gabbyjuli Jose [id number] Kya Angulo 05/30/2025 1 [place] [id number] Kya Angulo [id number] Kya [address] Notes Date Note Type Note Provider Name and Address Organization Details Recorded Time 05/30/2025 text/html Generic HPI TemplateReported by Patient JOLIE TOMLINSON MD [address], [place], [address], , P[facility] 05/30/2025 10:25:43 OBGyn Episode Ob Episode Information Episode Created Date Number of Fetuses Patient Bloodtype Patient rh Status Prepregnancy Weight lbs Domestic Partner Domestic Partner Phone Father Name Nurse Tech Status 02/11/20 25 1 O Positive 150 Jovany Juwan OPEN Fetus Data First Name Last Name Admitted to NICU Weight (g) Sex Living Outcome Pediatric Complications Fetus ID Race Codes Race Delivery Type [id number] Problems Problem Notes RSV vaccine received 07/04/25 . Problem Name Start Date End Date Resolution Snomed Code Not e Platelet count below reference range 06/01/2025 [id number] Referral fax ed to [facility] 06/01 scheduled 06/20 09 Level II us and consult Trino Calculation Initial Trino Date Initial Exam Date Initial Exam Provider Initial Ultrasound Date Last Menstrual Period Date Ultra Sound Weeks Gestation 08/21/2025 02/10/2025 01/13/2025 11/14/2024 8 Eighteen To Twenty Week Trino Update Ultra Sound Date Fundal Height At Umbil Quickening Date Ultra Sound Latest Weeks Gestation Final Trino Confirmed By Final Trino Confirmed Date Final Trino Date Ultra Sound Latest Days Gestation 0 02/10/2025 08/21/20 25 0 Pre- Flowsheet Flowsheet Date 02/10/2025 Kirkland Score Blood Edema Fundus Height Fundus Units Glucose Ketones Leukocytes Nitrite Labor Signs Protein Cervic Dilation Cervic Effacement Cervic Station Type Weight in lbs Pre/Post Dialysis Refused Weight 153.142179438839 BP Diastolic BP Location Tested BP Systolic BP Type 77 L arm 122 sitting Fetus Heart Rate Present A Present Fetus Movement Comments Patient presents to [facility] care. otherwise uncomplicated. No bleeding or cramping. Nausea continues to worsen, was seen in the ER 02/06 for fluids. Taking zofran PRN. Some improvement with B6. NT/NB wnl today, desires NIPT. Will draw today with new OB labs. RTC 4 weeks for routine care. Flowsheet Date 03/10/2025 Kirkland Score Blood Edema Fundus Height Fundus Units Glucose Ketones Leukocytes Nitrite Labor Signs Protein Cervic Dilation Cervic Effacement Cervic Station Type Weight in lbs Pre/Post Dialysis Refused Weight 156.257352747779 BP Diastolic BP Location Tested BP Systolic BP Type 69 L arm 105 sitting Fetus Heart Rate Present A 155 Fetus Movement Comments Doing better overall. Nausea improved, especially with zofran. No cramping or bleeding. Round ligament pain. LR male NIPT! Plt mildly low, will repeat in 4 weeks. Discussed anatomy US for next visit. RTC 4 weeks. Flowsheet Date 04/03/2025 Kirkland Score Blood Edema Fundus Height Fundus Units Glucose Ketones Leukocytes Nitrite Labor Signs Protein Cervic Dilation Cervic Effacement Cervic Station Type Weight in lbs Pre/Post Dialysis Refused BP Diastolic BP Location Tested BP Systolic BP Type Fetus Heart Rate Present Fetus Movement Comments Flowsheet Date 04/03/2025 Kirkland Score Blood Edema Fundus Height Fundus Units Glucose Ketones Leukocytes Nitrite Labor Signs Protein Cervic Dilation Cervic Effacement Cervic Station neg trace Type Weight in lbs Pre/Post Dialysis Refused Weight 160.828383405755 BP Diastolic BP Location Tested BP Systolic BP Type 73 L arm 118 sitting Fetus Heart Rate Present A Present Fetus Movement A Yes Comments Doing well, no issues. Mild nausea. Anatomy today, incomplete, need repeat for lower spine. EFW 63%. Will repeat CBC for mild thrombocytopenia on new OB labs. RTC 4 weeks. Flowsheet Date 05/02/2025 Kirkland Score Blood Edema Fundus Height Fundus Units Glucose Ketones Leukocytes Nitrite Labor Signs Protein Cervic Dilation Cervic Effacement Cervic Station Type Weight in lbs Pre/Post Dialysis Refused BP Diastolic BP Location Tested BP Systolic BP Type Fetus Heart Rate Present Fetus Movement Comments Flowsheet Date 05/02/2025 Kirkland Score Blood Edema Fundus Height Fundus Units Glucose Ketones Leukocytes Nitrite Labor Signs Protein Cervic Dilation Cervic Effacement Cervic Station Type Weight in lbs Pre/Post Dialysis Refused Weight 165.334717880958 BP Diastolic BP Location Tested BP Systolic BP Type 80 L arm 124 sitting Fetus Heart Rate Present A Present Fetus Movement A Yes Comments Good movement. No blee ding. Was seen in ER and L&D over the weekend for dizziness and vomiting. Now feeling better after scop patch. Anatomy complete and normal, EFW 70%. Repeat at 32 weeks. CBC in ER showed plt at 115, repeat at next visit. Also diagnosed with UTI, will send urine culture today. Discussed GCT and labs for next visit. RTC 4 weeks. Flowsheet Date 05/30/2025 Kirkland Score Blood Edema Fundus Height Fundus Units Glucose Ketones Leukocytes Nitrite Labor Signs Protein Cervic Dilation Cervic Effacement Cervic Station Type Weight in lbs Pre/Post Dialysis Refused 176.205127326886 BP Diastolic BP Location Tested BP Systolic BP Type 78 L arm 118 sitting Fetus Heart Rate Present A 150 Fetus Movement A Yes Comments Had an episode of DFM yester day, went to [place] and had negative workup. No cramping or bleeding. GCT and labs today, will draw CBC as well. Discussed Tdap, RSV, and flu vaccines. RTC 2 weeks. Flowsheet Date 06/13/2025 Kirkland Score Blood Edema Fundus Height Fundus Units Glucose Ketones Leukocytes Nitrite Labor Signs Protein Cervic Dilation Cervic Effacement Cervic Station Type Weight in lbs Pre/Post Dialysis Refused 181.031110192931 BP Diastolic BP Location Tested BP Systolic BP Type 80 L arm 116 sitting Fetus Heart Rate Present A 140 Fetus Movement A Yes Comments Doing well, good movem ent. No cramping or bleeding. Plt 113, seeing MFM next week. Received Tdap and flu. RTC 2 weeks. Flowsheet Date 06/30/2025 Kirkland Score Blood Edema Fundus Height Fundus Units Glucose Ketones Leukocytes Nitrite Labor Signs Protein Cervic Dilation Cervic Effacement Cervic Station Type Weight in lbs Pre/Post Dialysis Refused Weight 178.980721385534 BP Diastolic BP Location Tested BP Systolic BP Type 78 L arm 112 sitting Fetus Heart Rate Present A 140 Fetus Movement A Yes Comments Good movement. No cram ping or bleeding. Saw MFM, recommend platelet counts every visit. Vapor [employer]ater appointment next week to determine if autoimmune vs gestational. EFW 92%, AC 93%; discussed 39 week induction, plan for 12/15 PM. Preadmission scheduled. RSV vaccine discussed. RTC 2 weeks. Flowsheet Date 07/12/2025 Kirkland Score Blood Edema Fundus Height Fundus Units Glucose Ketones Leukocytes Nitrite Labor Signs Protein Cervic Dilation Cervic Effacement Cervic Station Type Weight in lbs Pre/Post Dialysis Refused Weight 185.130718480300 BP Diastolic BP Location Tested BP Systolic BP Type 78 L arm 120 sitting Fetus Heart Rate Present Fetus Movement A Yes Comments Platelet count down to 77, B 12 deficiency, started B12 injections. Will talk to [facility] about steroid timing. Also low iron, taking PO Fe QOD but needs to start Fe infusions. Will order Fe infusions. Discussed possibility of platelet transfusion. Repeat CBC today. Received RSV. RTC 2 weeks. GBS next visit. Flowsheet Date 07/24/2025 Kirkland Score Blood Edema Fundus Height Fundus Units Glucose Ketones Leukocytes Nitrite Labor Signs Protein Cervic Dilation Cervic Effacement Cervic Station 0cm 50% -2 Type Weight in lbs Pre/Post Dialysis Refused Weight 186.865679198137 BP Diastolic BP Location Tested BP Systolic BP Type 81 L arm 139 sitting Fetus Heart Rate Present A 155 Fetus Movement A Yes Comments Good movement. Having increased pressure, BH contractions and back pain. Just received Fe infusions, and continuing B12 infusions. Repeat platelet count today. GBS collected. RTC 1 week. Menstrual History Last Menstrual Date Menses Monthly On Bcp Conception Prior Menses Frequency Hcg Plus Date Menarche Onset Age 0311/14/2024 Delivery Information Delivery Date Delivery Type Labor Anesthesia Weeks Gestation Incision Type Labor Labor Length Hrs Delivered By Post Complications Tubal Sterilization Discharge Date Comments Discharge Information Feeding Method Contraceptive Method Maternal HG B and HCT Levels
--- OUTSIDE RECORDS SUMMARY | 2025-07-26 07:31 | XMS_ITS | Continuity of Care Document ---
Author Organization [facility] Address [address] [place] [address] [place] [address] Care Team Providers Care Lead Principal Technical Architect Name Role Phone SHERYL DICKSON Primary Care Provider Assessment No assessment recorded. Plan of Treatment Reminders Order Date Submit Date Provider Last Modified By Organization Details Last Modified Time Details Appointments OB ROUTINE 2024 02:45P Cosmo TOMLINSON MD Not available Not available Not available INDUCTION 2024 04:00P Cosmo TOMLINSON MD Not available Not available Not available Lab None recorded. Referral None recorded. Procedures None recorded. Surgeries None recorded. Imaging None recorded. Medication Orders None recorded. Patient TargetsNo targets recorded. Patient InstructionsNo instructions recorded. Reason for Referral None Reported. Results Created Date Observation Date Name Description Value Unit Range Abnormal Flag Note LastModifiedBy Organization Detail LastModifiedTime 02/17/2002/16/2025 [UNIT Y] ANEUP LOIDY NIPT fraction 15.3% normal Not Available [facility] [address], [place], [address], 02/16/2025 19:59:32 02/17/20 25 02/16/2025 [UNIT Y] ANEUP LOIDY NIPT 22Q11.2 microdeletio n LOW RISK <1 in 10,000 normal Not Available [facility] [address], [place], [address], 02/16/2025 19:59:32 02/17/20 25 02/16/2025 [UNIT Y] ANEUP LOIDY NIPT sex chromosome aneuploidy NOT DETECT ED normal Not Available [facility] [address], [place], [address], 02/16/2025 19:59:32 02/17/20 25 02/16/2025 [UNIT Y] ANEUP LOIDY NIPT monosomy X LOW RISK <1 in 10,000 normal Not Available [facility] [address], [place], [address], 02/16/2025 19:59:32 02/17/20 25 02/16/2025 [UNIT Y] ANEUP LOIDY NIPT trisomy 13 LOW RISK <1 in 10,000 normal Not Available [facility] [address], [place], [address], 02/16/2025 19:59:32 02/17/20 25 02/16/2025 [UNIT Y] ANEUP LOIDY NIPT trisomy 18 LOW RISK <1 in 10,000 normal Not Available [facility] [address], [place], [address], 02/16/2025 19:59:32 02/17/20 25 02/16/2025 [UNIT Y] ANEUP LOIDY NIPT trisomy 21 LOW RISK <1 in 10,000 normal Not Available [facility] [address], [place], [address], 02/16/2025 19:59:32 02/17/20 25 02/16/2025 [UNIT Y] ANEUP LOIDY NIPT sex MALE normal Not Available [facility] [address], [place], [address], 02/16/2025 19:59:32 02/17/20 25 02/16/2025 [UNIT Y] ANEUP LOIDY NIPT gestation SINGLE TON normal Not Available [facility] [address], [place], [address], 02/16/2025 19:59:32 02/17/20 25 02/16/2025 [UNIT Y] ANEUP LOIDY NIPT for detailed report, see pdf See PDF normal Not Available [facility] [address], [place], [address], 02/16/2025 19:59:32 02/22/20 25 02/21/2025 [UNIT Y] FLETCHER Rose sickle cell disease/beta -thalassemia /hemoglobino pathies carrier screen NEGATI VE normal Not Available [facility] [address], [place], [address], 02/21/2025 14:09:41 02/22/20 25 02/21/2025 [UNIT Y] FLETCHER Rose alpha-thalas semia carrier screen NEGATI VE normal Not Available [facility] [address], [place], [address], 02/21/2025 14:09:41 02/22/20 25 02/21/2025 [UNIT Y] FLETCHER Rose cystic fibrosis carrier screen NEGATI VE normal Not Available [facility] [address], [place], [address], 02/21/2025 14:09:41 02/22/20 25 02/21/2025 [UNIT Y] FLETCHER Rose spinal muscular atrophy carrier screen NEGATI VE 2 SMN1 copies , SNP not presen t normal Not Available [facility] [address], [place], [address], 02/21/2025 14:09:41 02/22/20 25 02/21/2025 [UNIT Y] FLETCHER Rose for detailed report, see pdf See PDF normal Not Available [facility] [address], [place], [address], 02/21/2025 14:09:41 02/11/20 25 02/10/2025 CT/GC AND TRICH OMONA S VAGIN KARLO (RRNA ), URINE chlamydia trachomatis, PCR Negati ve negati ve Not Available [facility] (Lab) [address] [facility], [place], [address], 02/11/2025 12:05:33 02/11/2002/10/2025 CT/GC AND TRICH OMONA S VAGIN KARLO (RRNA ), URINE neisseria gonorrhoeae, PCR Negati ve negati ve Not Available [facility] (Lab) [address] [facility], [place], [address], 02/11/2025 12:05:33 02/11/2002/10/2025 CT/GC AND TRICH OMONA S VAGIN KARLO (RRNA ), URINE trichomonas vaginalis ribosomal RNA (rrna) Negati ve negati ve Not Available [facility] (Lab) [address] [facility], [place], [address], 02/11/2025 12:05:33 02/11/20 25 02/10/2025 CBC W/DIF F WBC 8.7 10'3/ uL 3.5-10 .5 Not Available [facility] (Lab) [address] [facility], [place], [address], 02/11/2025 13:44:37 02/11/20 25 02/10/2025 CBC W/DIF F RBC 4.55 10'6/ uL (based on docume nted legal sex) 3.80-5 .20 Not Available [facility] (Lab) [address] [facility], [place], [address], 02/11/2025 13:44:37 02/11/20 25 02/10/2025 CBC W/DIF F HGB 13.7 g/dL (based on docume nted legal sex) 11.6-1 5.4 Not Available [facility] (Lab) [address] [facility], [place], [address], 02/11/2025 13:44:37 02/11/20 25 02/10/2025 CBC W/DIF F HCT 40.8 % (based on docume nted legal sex) 34.0-4 5.0 Not Available [facility] (Lab) [address] [facility], [place], [address], 02/11/2025 13:44:37 02/11/20 25 02/10/2025 CBC W/DIF F MCV 89.7 fL 80.0-9 9.0 Not Available [facility] (Lab) [address] [facility] [address], [place], [address], 02/11/2025 13:44:37 02/11/20 25 02/10/2025 CBC W/DIF F MCH 30.1 pg 27.0-3 4.0 Not Available [facility] (Lab) [address] [facility] [address], [place], [address], 02/11/2025 13:44:37 02/11/20 25 02/10/2025 CBC W/DIF F MCHC 33.6 g/dL 32.0-3 5.5 Not Available [facility] (Lab) [address] [facility], [place], [address], 02/11/2025 13:44:37 02/11/20 25 02/10/2025 CBC W/DIF F RDW 12.8 % 11.0-1 5.0 Not Available [facility] (Lab) [address], [place], [address], 02/11/2025 13:44:37 02/11/20 25 02/10/2025 CBC W/DIF F plt 125 10'3/ uL 150-40 0 low Not Available [facility] (Lab) [address], [place], [address], 02/11/2025 13:44:37 02/11/20 25 02/10/2025 CBC W/DIF F MPV 13.5 fL 8.8-12 .1 high Not Available [facility] (Lab) [address] [facility] [address], [place], [address], 02/11/2025 13:44:37 02/11/20 25 02/10/2025 CBC W/DIF F NRBC's 0.0 % 0.0 Not Available [facility] (Lab) [address], [place], [address], 02/11/2025 13:44:37 02/11/20 25 02/10/2025 CBC W/DIF F absolute NRBCs 0.0 10'3/ uL no refere nce range establ ished Not Available [facility] (Lab) [address], [place], [address], 02/11/2025 13:44:37 02/11/20 25 02/10/2025 CBC W/DIF F neutrophils 76.5 % 34.0-7 3.0 high Not Available [facility] (Lab) [address], [place], [address], 02/11/2025 13:44:37 02/11/20 25 02/10/2025 CBC W/DIF F lymphocytes 14.4 % 15.0-5 0.0 low Not Available [facility] (Lab) [address], [place], [address], 02/11/2025 13:44:37 02/11/20 25 02/10/2025 CBC W/DIF F monocytes 8.3 % 1.0-15 .0 Not Available [facility] (Lab) [address], [place], [address], 02/11/2025 13:44:37 02/11/20 25 02/10/2025 CBC W/DIF F eosinophils 0.3 % 0.0-8. 0 Not Available [facility] (Lab) [address] [place], [address], 02/11/2025 13:44:37 02/11/20 25 02/10/2025 CBC W/DIF F basophils 0.3 % 0.0-2. 0 Not Available [facility] (Lab) [address] [place], [address], 02/11/2025 13:44:37 02/11/20 25 02/10/2025 CBC W/DIF [...] separ ately if prese nt. Not Available [facility] (Lab) [address], [place], [address], 02/11/2025 13:44:37 02/11/20 25 02/10/2025 CBC W/DIF F absolute neutrophils 6.6 10'3/ uL 1.5-8. 0 Not Available [facility] (Lab) [address], [place], [address], 02/11/2025 13:44:37 02/11/20 25 02/10/2025 CBC W/DIF F absolute lymphocytes 1.3 10'3/ uL 1.0-4. 0 Not Available [facility] (Lab) [address], [place], [address], 02/11/2025 13:44:37 02/11/20 25 02/10/2025 CBC W/DIF F absolute monocytes 0.7 10'3/ uL 0.2-1. 0 Not Available [facility] (Lab) [address] [facility] [address], [place], [address], 02/11/2025 13:44:37 02/11/20 25 02/10/2025 CBC W/DIF F absolute eosinophils 0.0 10'3/ uL 0.0-0. 6 Not Available [facility] (Lab) [address], [place], [address], 02/11/2025 13:44:37 02/11/20 25 02/10/2025 CBC W/DIF F absolute basophils 0.0 10'3/ uL 0.0-0. 3 Not Available [facility] (Lab) [address], [place], [address], 02/11/2025 13:44:37 02/11/20 25 02/10/2025 CBC W/DIF F absolute immature granulocytes 0.0 10'3/ uL 0.00-0 .10 Refer ence range s for nonbi nary/ inter sex or unspe cifie d gende r patie nts have not been estab lishe d. Pleluis e refer to the dedricko wing table for range s estab lishe d for cisge nder patie nts and evalu ate in the clini randal kiera xt of the indiv idual patie nt: https :[email or web address] carlosand book. nm.or g/gen derx Not Available [facility] (Lab) [address], [place], [address], 02/11/2025 13:44:37 02/11/20 25 02/10/2025 HIV 1/2 ANTIG EN/AN TIBOD Y, REFLE X CONFI RMATI ON HIV antigen/anti body Nonrea ctive nonrea ctive HIV-1 antig en and HIV-1 /HIV- 2 antib odies were not detec alfredo. No labor atory evide nce of HIV infec tion. Not Available [facility] (Lab) [address], [place], [address], 02/11/2025 13:44:38 02/11/20 25 02/10/2025 HEPAT ITIS B SURFA CE ANTIG EN hepatitis B surface antigen Non-re active non-re active This assay was perfo rmed using [employer] ratio n reage nts and test kits. Value s obtai evelyn with other assay metho ds or kits canno t be used inter collins eably . Not Available [facility] (Lab) [address], [place], [address], 02/11/2025 13:44:38 02/11/20 25 02/10/2025 HEPAT ITIS C ANTIB TIM SCREE N, REFLE X TO CONFI RMATI ON hepatitis C antibody Non-re active non-re active Antib odies to HCV Not Detec alfredo, does not exclu de the possi bilit y of expos ure to HCV. Not Available [facility] (Lab) [address], [place], [address], 02/11/2025 13:44:39 02/11/20 25 02/10/2025 RUBEL LA IGG ANTIB TIM, QUANT rubella antibodies, IgG Reacti ve reacti ve Not Available [facility] (Lab) [address], [place], [address], 02/11/2025 13:44:39 02/11/20 25 02/10/2025 RUBEL LA IGG ANTIB TIM, QUANT rubella antibodies, IgG quant 47.1 IU/mL >=10 Non-r eacti ve (Non- Immun e) <10 IU/mL React kvng (Immu ne) > or = 10 IU/mL Not Available [facility] (Lab) [address], [place], [address], 02/11/2025 13:44:39 02/11/20 25 02/10/2025 TYPE/ RH/SC REEN ABO/Rh type O POS Not Available [facility] (Lab) [address], [place], [address], 02/11/2025 13:44:40 02/11/20 25 02/10/2025 TYPE/ RH/SC REEN antibody screen NEG Not Available [facility] (Lab) [address], [place], [address], 02/11/2025 13:44:40 02/11/20 25 02/10/2025 TYPE/ RH/SC REEN exp date 2024 23:59 Not Available [facility] (Lab) [address], [place], [address], 02/11/2025 13:44:40 02/11/20 25 02/10/2025 HEMOG LOBIN A1C hemoglobin A1C 5.1 % 4.0-5. 6 The Ameri can [employer] um[employer] iatio n recom mends that a prima ry goal of thera py glen te[place] be a HBA1C of < 7% and that physi cians shoul d reeva luate the treat ment regim en in patie nts with HBA1C value s consi stent ly > 8%. <5.7% Vianey l 5.7 - 6.4% Incre ased risk for diabe umair >=6.5 % Diagn ostic of diabe umair <7.0% Goal of thera py >8.0% Actio n sugge sted Not Available [facility] (Lab) [address], [place], [address], 02/11/2025 13:44:40 02/11/20 25 02/10/2025 RPR SCREE N, REFLE X TITER /CONF IRMAT ION RPR qualitative Nonrea ctive nonrea ctive Not Available [facility] (Lab) [address], [place], [address], 02/11/2025 13:44:41 02/11/20 25 02/10/2025 drug scree n, urine Amphetamines : negati ve Not Available [facility] [address], [place], [address], 02/10/2025 12:55:20 02/11/20 25 02/10/2025 drug scree n, urine Cannabinoids : negati ve Not Available [facility] [address], [place], [address], 02/10/2025 12:55:20 02/11/20 25 02/10/2025 drug scree n, urine Cocaine: negati ve Not Available [facility] [address], [place], [address], 02/10/2025 12:55:20 02/11/20 25 02/10/2025 drug scree n, urine Opiates: negati ve Not Available [facility] [address], [place], [address], 02/10/2025 12:55:20 02/11/20 25 02/10/2025 drug scree n, urine Barbiturates : negati ve Not Available [facility] [address], [place], [address], 02/10/2025 12:55:20 02/11/20 25 02/10/2025 drug scree n, urine Benzodiazepi john: negati ve Not Available [facility] [address], [place], [address], 02/10/2025 12:55:20 03/10/20 25 03/10/2025 CULTU RE: URINE result report SEE RESULT S BELOW Test: Cultu re: Urine Speci men Sourc e: Urine Voide d Speci men Type: Urine Speci men Date: 202438 Resul t Date: 20242 Resul t Statu s: Final resul t Abnor mal: No Resul ting Lab: [facility] [address] [facility] [address] Tel: CULTU RE ----- ----- ----- --- No growt h in 1 day (dete ction level of 10,00 0 colon ies / ml.) Not Available [facility] (Lab) [address] [place], [address], 03/11/2025 23:15:50 04/03/2004/03/2025 CBC W/DIF F WBC 12.9 10'3/ uL 3.5-10 .5 high Not Available [facility] (Lab) [address] [place], [address], 04/04/2025 04:39:51 04/03/20 25 04/03/2025 CBC W/DIF F RBC 4.33 10'6/ uL (based on docume nted legal sex) 3.80-5 .20 Not Available [facility] (Lab) [address], [place], [address], 04/04/2025 04:39:51 04/03/2004/03/2025 CBC W/DIF F HGB 13.2 g/dL (based on docume nted legal sex) 11.6-1 5.4 Not Available [facility] (Lab) [address], [place], [address], 04/04/2025 04:39:51 04/03/2004/03/2025 CBC W/DIF F HCT 40.2 % (based on docume nted legal sex) 34.0-4 5.0 Not Available [facility] (Lab) [address] [facility], [place], [address], 04/04/2025 04:39:51 04/03/2004/03/2025 CBC W/DIF F MCV 92.8 fL 80.0-9 9.0 Not Available [facility] (Lab) [address] [facility], [place], [address], 04/04/2025 04:39:51 04/03/2004/03/2025 CBC W/DIF F MCH 30.5 pg 27.0-3 4.0 Not Available [facility] (Lab) [address] [facility], [place], [address], 04/04/2025 04:39:51 04/03/2004/03/2025 CBC W/DIF F MCHC 32.8 g/dL 32.0-3 5.5 Not Available [facility] (Lab) [address] [facility], [place], [address], 04/04/2025 04:39:51 04/03/2004/03/2025 CBC W/DIF F RDW 13.0 % 11.0-1 5.0 Not Available [facility] (Lab) [address] [facility] [address], [place], [address], 04/04/2025 04:39:51 04/03/20 25 04/03/2025 CBC W/DIF F plt 131 10'3/ uL 150-40 0 low Not Available [facility] (Lab) [address], [place], [address], 04/04/2025 04:39:51 04/03/20 25 04/03/2025 CBC W/DIF F MPV 13.9 fL 8.8-12 .1 high Not Available [facility] (Lab) [address], [place], [address], 04/04/2025 04:39:51 04/03/20 25 04/03/2025 CBC W/DIF F NRBC's 0.0 % 0.0 Not Available [facility] (Lab) [address], [place], [address], 04/04/2025 04:39:51 04/03/20 25 04/03/2025 CBC W/DIF F absolute NRBCs 0.0 10'3/ uL no refere nce range establ ished Not Available [facility] (Lab) [address] [facility], [place], [address], 04/04/2025 04:39:51 04/03/20 25 04/03/2025 CBC W/DIF F neutrophils 76.6 % 34.0-7 3.0 high Not Available [facility] (Lab) [address], [place], [address], 04/04/2025 04:39:51 04/03/2004/03/2025 CBC W/DIF F lymphocytes 14.2 % 15.0-5 0.0 low Not Available [facility] (Lab) [address] [facility], [place], [address], 04/04/2025 04:39:51 04/03/20 25 04/03/2025 CBC W/DIF F monocytes 7.6 % 1.0-15 .0 Not Available [facility] (Lab) [address] [place], [address], 04/04/2025 04:39:51 04/03/20 25 04/03/2025 CBC W/DIF F eosinophils 0.7 % 0.0-8. 0 Not Available [facility] (Lab) [address], [place], [address], 04/04/2025 04:39:51 04/03/20 25 04/03/2025 CBC W/DIF F basophils 0.4 % 0.0-2. 0 Not Available [facility] (Lab) [address], [place], [address], 04/04/2025 04:39:51 04/03/20 25 04/03/2025 CBC W/DIF F immature granulocytes 0.5 % no define d refere nce range Immat ure Granu locyt es (IG) repre sents autom ated enume ratio n of Metam yeloc ytes, Myelo cytes and Promy elocy umair when IG is < 5%. Blast s are not inclu ded in IG and repor alfredo separ ately if prese nt. Not Available [facility] (Lab) [address], [place], [address], 04/04/2025 04:39:51 04/03/20 25 04/03/2025 CBC W/DIF F absolute neutrophils 9.9 10'3/ uL 1.5-8. 0 high Not Available [facility] (Lab) [address], [place], [address], 04/04/2025 04:39:51 04/03/20 25 04/03/2025 CBC W/DIF F absolute lymphocytes 1.8 10'3/ uL 1.0-4. 0 Not Available [facility] (Lab) [address] [place], [address], 04/04/2025 04:39:51 04/03/20 25 04/03/2025 CBC W/DIF F absolute monocytes 1.0 10'3/ uL 0.2-1. 0 Not Available [facility] (Lab) [address], [place], [address], 04/04/2025 04:39:51 04/03/2004/03/2025 CBC W/DIF F absolute eosinophils 0.1 10'3/ uL 0.0-0. 6 Not Available [facility] (Lab) [address] [facility], [place], [address], 04/04/2025 04:39:51 04/03/2004/03/2025 CBC W/DIF F absolute basophils 0.1 10'3/ uL 0.0-0. 3 Not Available [facility] (Lab) [address] [facility], [place], [address], 04/04/2025 04:39:51 04/03/2004/03/2025 CBC W/DIF F absolute immature granulocytes 0.1 10'3/ uL 0.00-0 .10 Refer ence range s for nonbi nary/ inter sex or unspe cifie d gende r patie nts have not been estab lishe d. Pleas e [facility] for range s estab lishe d for cisge nder patie nts and evalu ate in the clini randal kiera xt of the indiv idual patie nt: https :[email or web address] [email or web address] [email or web address] nm.or g/gen derx Not Available [facility] (Lab) [address] [facility], [place], [address], 04/04/2025 04:39:51 05/02/2005/02/2025 CULTU RE: URINE result report SEE RESULT S BELOW Test: Cultu re: Urine Speci men Sourc e: Urine - Clean Catch Speci men Type: Urine Speci men Date: 150 Resul t Date: 0404 Resul t Statu s: Final resul t Abnor mal: No Resul ting Lab: [facility] [address] [facility] [address] Tel: [phone] CULTU RE ----- ----- ----- --- No growt h in 1 day (dete ction level of 10,00 0 colon ies / ml.) Not Available [facility] (Lab) [address], [place], [address], 05/04/2025 05:09:17 05/30/20 25 05/30/2025 CBC W/DIF F WBC 11.9 10'3/ uL 3.5-10 .5 high Not Available [facility] (Lab) [address], [place], [address], 05/31/2025 12:26:07 05/30/20 25 05/30/2025 CBC W/DIF F RBC 3.98 10'6/ uL (based on docume nted legal sex) 3.80-5 .20 Not Available [facility] (Lab) [address], [place], [address], 05/31/2025 12:26:07 05/30/20 25 05/30/2025 CBC W/DIF F HGB 12.4 g/dL (based on docume nted legal sex) 11.6-1 5.4 Not Available [facility] (Lab) [address], [place], [address], 05/31/2025 12:26:07 05/30/20 25 05/30/2025 CBC W/DIF F HCT 36.8 % (based on docume nted legal sex) 34.0-4 5.0 Not Available [facility] (Lab) [address], [place], [address], 05/31/2025 12:26:07 05/30/20 25 05/30/2025 CBC W/DIF F MCV 92.5 fL 80.0-9 9.0 Not Available [facility] (Lab) [address], [place], [address], 05/31/2025 12:26:07 05/30/20 25 05/30/2025 CBC W/DIF F MCH 31.2 pg 27.0-3 4.0 Not Available [facility] (Lab) [address], [place], [address], 05/31/2025 12:26:07 05/30/20 25 05/30/2025 CBC W/DIF F MCHC 33.7 g/dL 32.0-3 5.5 Not Available [facility] (Lab) [address] [facility], [place], [address], 05/31/2025 12:26:07 05/30/20 25 05/30/2025 CBC W/DIF F RDW 13.4 % 11.0-1 5.0 Not Available [facility] (Lab) [address], [place], [address], 05/31/2025 12:26:07 05/30/20 25 05/30/2025 CBC W/DIF F plt 113 10'3/ uL 150-40 0 low Not Available [facility] (Lab) [address], [place], [address], 05/31/2025 12:26:07 05/30/20 25 05/30/2025 CBC W/DIF F MPV 13.8 fL 8.8-12 .1 high Not Available [facility] (Lab) [address], [place], [address], 05/31/2025 12:26:07 05/30/20 25 05/30/2025 CBC W/DIF F NRBC's 0.0 % 0.0 Not Available [facility] (Lab) [address] [facility], [place], [address], 05/31/2025 12:26:07 05/30/20 25 05/30/2025 CBC W/DIF F absolute NRBCs 0.0 10'3/ uL no refere nce range establ ished Not Available [facility] (Lab) [address] [facility], [place], [address], 05/31/2025 12:26:07 05/30/20 25 05/30/2025 CBC W/DIF F neutrophils 79.4 % 34.0-7 3.0 high Not Available [facility] (Lab) [address] [place], [address], 05/31/2025 12:26:07 05/30/20 25 05/30/2025 CBC W/DIF F lymphocytes 10.8 % 15.0-5 0.0 low Not Available [facility] (Lab) [address] [facility], [place], [address], 05/31/2025 12:26:07 05/30/20 25 05/30/2025 CBC W/DIF F monocytes 7.7 % 1.0-15 .0 Not Available [facility] (Lab) [address] [facility], [place], [address], 05/31/2025 12:26:07 05/30/20 25 05/30/2025 CBC W/DIF F eosinophils 0.8 % 0.0-8. 0 Not Available [facility] (Lab) [address] [place], [address], 05/31/2025 12:26:07 05/30/20 25 05/30/2025 CBC W/DIF F basophils 0.4 % 0.0-2. 0 Not Available [facility] (Lab) [address] [place], [address], 05/31/2025 12:26:07 05/30/20 25 05/30/2025 CBC W/DIF [...] separ ately if prese nt. Not Available [facility] (Lab) [address] [place], [address], 05/31/2025 12:26:07 05/30/20 25 05/30/2025 CBC W/DIF F absolute neutrophils 9.5 10'3/ uL 1.5-8. 0 high Not Available [facility] (Lab) [address] [facility], [place], [address], 05/31/2025 12:26:07 05/30/20 25 05/30/2025 CBC W/DIF F absolute lymphocytes 1.3 10'3/ uL 1.0-4. 0 Not Available [facility] (Lab) [address] [facility], [place], [address], 05/31/2025 12:26:07 05/30/20 25 05/30/2025 CBC W/DIF F absolute monocytes 0.9 10'3/ uL 0.2-1. 0 Not Available [facility] (Lab) [address] [facility], [place], [address], 05/31/2025 12:26:07 05/30/20 25 05/30/2025 CBC W/DIF F absolute eosinophils 0.1 10'3/ uL 0.0-0. 6 Not Available [facility] (Lab) [address] [facility], [place], [address], 05/31/2025 12:26:07 05/30/20 25 05/30/2025 CBC W/DIF F absolute basophils 0.1 10'3/ uL 0.0-0. 3 Not Available [facility] (Lab) [address] [facility], [place], [address], 05/31/2025 12:26:07 05/30/20 25 05/30/2025 CBC W/DIF F absolute immature granulocytes 0.1 10'3/ uL 0.00-0 .10 Refer ence range s for nonbi nary/ inter sex or unspe cifie d gende r patie nts have not been estab lishe d. [facility] estab lishe d for cisge nder patie nts and evalu ate in the clini randal kiera xt of the indiv idual patie nt: [email or web address] :[email or web address] [email or web address] derx Not Available [facility] (Lab) [address], [place], [address], 05/31/2025 12:26:07 05/30/20 25 05/30/2025 HIV 1/2 ANTIG EN/AN TIBOD Y, REFLE X CONFI RMATI ON HIV antigen/anti body Nonrea ctive nonrea ctive HIV-1 antig en and HIV-1 /HIV- 2 antib odies were not detec alfredo. No labor atory evide nce of HIV infec tion. Not Available [facility] (Lab) [address], [place], [address], 05/31/2025 12:26:07 05/30/20 25 05/30/2025 GTT - GESTA REGAN L SCREE N, ACOG OB glucose, 1 hour screen 82 mg/dL 70-135 Not Available [facility] (Lab) [address], [place], [address], 05/31/2025 12:26:08 05/30/20 25 05/30/2025 RPR SCREE N, REFLE X TITER /CONF IRMAT ION RPR qualitative Nonrea ctive nonrea ctive Not Available [facility] (Lab) [address], [place], [address], 05/31/2025 12:26:08 02/11/20 25 02/10/2025 US, obste tric, nucha l trans lucen cy No observ ation record ed. [facility] [address], [place], [address], 02/10/2025 18:38:42 02/11/2002/10/2025 US, obste tric, follo w-up No observ ation record ed. [email or web address] [facility] [address], [place], [address], 02/13/2025 09:20:03 04/03/20 25 04/03/2025 US, obste tric, 2nd or 3rd trime ster No observ ation record ed. [email or web address] [facility] [address], [place], [address], 04/03/2025 18:43:20 04/03/20 25 04/03/2025 US, obste tric, 2nd or 3rd trime ster No observ ation record ed. [email or web address] [facility] [address], [place], [address], 04/05/2025 17:47:52 04/21/20 25 04/21/2025 non-s tress test No observ ation record ed. [address] [facility], [place], [address], 04/24/2025 12:03:28 05/02/20 25 05/02/2025 US, obste tric, follo w-up No observ ation record ed. [email or web address] [facility] [address], [place], [address], 05/02/2025 12:58:26 05/02/20 25 05/02/2025 US, obste tric, follo w-up No observ ation record ed. ROBERT [facility] [address], [place], [address], 05/03/2025 18:13:01 05/29/20 25 05/29/2025 non-s tress test No observ ation record ed. [address], [address], 05/31/2025 15:39:22 06/20/20 25 06/20/2025 imagi ng/di agnos tic resul t No observ ation record ed. [facility] [address] [place], [address], 06/20/2025 13:33:45 06/20/2006/20/2025 US, obste tric, follo w-up No observ ation record ed. [email or web address] [facility] [address] [place], [address], 06/27/2025 17:32:46 07/03/20 25 07/03/2025 non-s tress test No observ ation record ed. [address] [facility] [address], [place], [address], 07/19/2025 15:34:42 07/03/20 25 07/03/2025 imagi ng/di agnos tic resul t No observ ation record ed. [place] [id number] [facility] [address], [place], [address], 07/03/2025 11:55:37 Result Notes None recorded. Problems Name Problem SNOMED Code Status Onset Date Resolution Date Notes Provider Name and Address Organization Details Recorded Time Anxiety 98930287 Active [address] [facility] 11:01:06 45652923 Active [address] [facility] 11:57:32 Platelet count below reference range 293256521 Active 2024 Referral faxed to [facility] 06/01 scheduled 06/20 0900 Level II us and consult Zoey Tarango [facility] 11:50:53 Problem Notes None recorded. Procedures Surgical History Date Name Laterality Status Provider Name and Address Organization Details Recorded Time 5 Date of Last Pap Smear completed Kristen Ruffin [facility] 01/13/2025 11:01:13 7 operative procedure on wrist completed Aleah Bedolla [facility] 02/10/2025 11:57:07 Imaging Results None recorded. [...] 2024 active Not Available Not Available Not Krishai isauro Vitals Date Recorded Body weight Systolic And Diastolic Provider Name and Address Organization Details Last Updated DateTime 06/13/2025 74876.81054 g 116/80 mm[Hg] Isabel Romero [facility] 06/13/2025 15:35:31 Social History Question Answer Notes LastModified by Organizat ion Details LastModified Time Tobacco Smoking Status Never Smoker Kristen Augustin null, [facility] 01/13/2025 11:05:22 If You Are , What Was Your Level Of Alcohol Consumption Prior To ? Occasional [email or web address] Information not available 01/13/2025 Are You Blind Or Do You Have Difficulty Seeing? No [email or web address] Information n ot available 01/13/2025 What Is Your Level Of Caffeine Consumption? Occasional [email or web address] Information not available 01/13/2025 In The 14 Days Before Symptom Onset, Have You Had Close Contact With A Laboratory-confirm ed COVID-19 While That Case Was Ill? No [email or web address] Information n ot available 01/13/2025 In The 14 Days Before Symptom Onset, Have You Had Close Contact With A Person Who Is Under Investigation For COVID-19 While That Person Was Ill? No [email or web address] Information not available 01/13/2025 Have You Been To An Area Known To Be High Risk For COVID-19? No [email or web address] Information not available 01/13/2025 Are You Deaf Or Do You Have Serious Difficulty Hearing? No [email or web address] Information not available 01/13/2025 Do You Have Smoke And Carbon Monoxide Detectors In Your Home? Yes [email or web address] Information not available 01/13/2025 Do You Use Sunscreen Routinely? Yes [email or web address] Information not available 01/13/2025 Has Tobacco Cessation Counseling Been Provided? No [email or web address] Information not available 01/13/2025 Have You Used IV Drugs? No [email or web address] Information not available 01/13/2025 Do You Have Difficulty Walking Or Climbing Stairs? No [email or web address] Information not available 01/13/2025 Sex: Unknown Functional Status Question Answer Note LastModified by Organizat ion Details LastModified Time Do you use any illicit or recreational drugs? No [email or web address] Information not available 01/13/2025 Do you or have you ever used any other forms of tobacco or nicotine? Yes [email or web address] Information not available 01/13/2025 What is your level of alcohol consumption? None [email or web address] Information not available 01/13/2025 Are you able to walk independently without assistance or assistive devices? YESWOREST [email or web address] Information not available 01/13/2025 Are you able to care for yourself independently? Yes [email or web address] Information not available 01/13/2025 Do you have difficulty dressing, bathing, grooming, or toileting? No Information not available 01/13/2025 Do you or have you ever used e-cigarettes or vape? Former user of electronic cigarettes Information not available 01/13/2025 Mental Status None recorded. Family History Relationship Description Onset Age of this Age Resolved Age Notes LastModified by Organization Details LastModified Time Unspecified Relation Family history unknown [email or web address] Not available 2024 13:48:03 Paternal Grandfather Malignant neoplasm of prostate [email or web address] Not available 07/02 11:19:15 Maternal Grandfather Malignant neoplasm of lung [email or web address] Not available 01/13 11:03:40 Maternal Grandmother Malignant neoplasm of pancreas [email or web address] Not available 07/02 11:19:15 Maternal Aunt Malignant neoplasm of breast [email or web address] Not available 2024 13:48:03 Father Leukemia [email or web address] Not availa ble 07/24/2025 11:19:16 Mother Diabetes mellitus [email or web address] Not available 01/13 11:04:57 Medical History Condition Response Other N Blood Transfusion N Dermatologic Disorders N Gestational Diabetes N Anxiety Disorder Y Autoimmune disease N Arthritis N Polyps N Infertility N Acid Reflux (GERD) N Cancer N Varicosities N Stroke N Neurologic/Epilepsy N Fibromyalgia N Headaches N Kidney Disease N Heart Problems N Kidney or Bladder Problems N Eating Disorder N Art (IVF or FET) N Hepatitis/Liver Disease N No Past Medical History N Urinary Tract Infection N Asthma N Trauma/Violence N Thrombophilias N Allergies (Food, seasonal, environmental ) N Breast Cancer N Drug/Latex Allergies/Reactions N Lung Disease N Defects or Inherited Disease N Breast Problem N Hematologic disorders N Anesthesia Complications N History of STI N Deep Vein Thrombosis N Polycystic ovary syndrome N History of abnormal pap N Endometriosis N High Cholesterol N Thyroid Problems N GI Problems N Anemia N Psychiatric Illness N Ovarian Cancer N Diabetes N Pulmonary (TB, Asthma) N Eczema N Abuse/Domestic Violence N Depression/ depression N Heart Disease N Pre-Eclampsia N Hypertension N Osteoporosis N Gynecological History Statement/Question Response Abnormal Pap [...] ICD10 Code Diagnosis IMO Codes Diagnosis Note [id number] JOLIE TOMLINSON MD [facility] [address] [address] 05/30/2025 09:40:10 05/30/2025 10:26:07 Thrombocytopenic disorder 986443781 D69.6 74501 - plt 125>131- repeat today Gestation period, 28 weeks 58249311 Z3A.28 [id number] JOLIE TOMLINSON MD [facility] [address],[facility] [address] 06/13/2025 15:20:18 06/13/2025 16:44:44 Platelet count below reference range 187832927 D69.6 78022273 - plt 125>131>11 3- MFM consult Gestation period, 30 weeks 87844008 Z3A.30 [id number] Health Concerns Section Related Observation LastModified by Organization Detai ls LastModified Time None Recorded Concern Status LastModified by Organization Details LastModified Time None Recorded Payers Encounter Date Sequence Insurance Name Policy Number Policy Marie Covered Member ID Marie Member ID Guarantor Name 06/13/2025 2 [place] DEPARTMENT [place] PUBLIC AID Gabby Jose [id number] Kya Angulo 06/13/2025 1 [place] [id number] Kya Angulo [id number] Kya Angulo Notes Date Note Type Note Provider Name and Address Organization Details Recorded Time 06/13/2025 text/html Generic HPI TemplateReported by Patient JOLIE OTMLINSON MD [address], [place], [address], [facility] 06/13/2025 16:44:32 OBGyn Episode Ob Episode Information Episode Created Date Number of Fetuses Patient Bloodtype Patient rh Status Prepregnancy Weight lbs Domestic Partner Domestic Partner Phone Father Name Oracle Apex Developer Status 02/11/20 1 O Positive 150 Jovanyhannah Meierk OPEN Fetus Data First Name Last Name Admitted to NICU Weight (g) Sex Living Outcome Pediatric Complications Fetus ID Race Codes Race Delivery Type [id number] Problems Problem Notes RSV vaccine received 07/04/25 . Problem Name Start Date End Date Resolution Snomed Code Not e Platelet count below reference range 06/01/2025 [id number] Referral fax ed to [facility] 06/01 scheduled 06/20 0900 Level II us and consult Trino Calculation [...] Date Ultra Sound Latest Days Gestation 0 [email or web address] 02/10/2025 08/21/20 25 0 Pre-henna Flowsheet Flowsheet Date 02/10/2025 Kirkland Score Blood Edema Fundus Height Fundus Units Glucose Ketones Leukocytes Nitrite Labor Signs Protein Cervic Dilation Cervic Effacement Cervic Station Type Weight in lbs Pre/Post Dialysis Refused Weight 153.201644872124 BP Diastolic BP Location Tested BP Systolic BP Type 77 L arm 122 sitting Fetus Heart Rate Present A Present Fetus Movement Comments Patient presents to [facility] care. otherwise uncomplicated. No bleeding or cramping. [...] Weight in lbs Pre/Post Dialysis Refused Weight 156.022053573247 BP Diastolic BP Location Tested BP Systolic [...] Weight in lbs Pre/Post Dialysis Refused Weight 160.998918980840 BP Diastolic BP Location Tested BP Systolic [...] Weight in lbs Pre/Post Dialysis Refused Weight 165.532148452170 BP Diastolic BP Location Tested BP Systolic [...] Type Weight in lbs Pre/Post Dialysis Refused 176.246488181891 BP Diastolic BP Location Tested BP Systolic BP Type 78 L arm 118 sitting Fetus Heart Rate Present A 150 Fetus Movement A Yes Comments Had an episode of DFM yester day, went to [place] and had negative workup. No cramping or bleeding. GCT and labs today, will draw CBC as well. Discussed Tdap, RSV, and flu vaccines. RTC 2 weeks. Flowsheet Date 06/13/2025 Kirkland Score Blood Edema Fundus Height Fundus Units Glucose Ketones Leukocytes Nitrite Labor Signs Protein Cervic Dilation Cervic Effacement Cervic Station Type Weight in lbs Pre/Post Dialysis Refused 181.009880713580 BP Diastolic BP Location Tested BP Systolic [...] Weight in lbs Pre/Post Dialysis Refused Weight 178.377053676859 BP Diastolic BP Location Tested BP Systolic BP Type 78 L arm 112 sitting Fetus Heart Rate Present A 140 Fetus Movement A Yes Comments Good movement. No cram ping or bleeding. Saw MFM, recommend platelet counts every visit. Pathology Technologist appointment next week to determine if autoimmune vs gestational. EFW 92%, AC 93%; discussed 39 week induction, plan for 12/15 PM. Preadmission scheduled. RSV vaccine discussed. RTC 2 weeks. Flowsheet Date 07/12/2025 Kirkland Score Blood Edema Fundus Height Fundus Units Glucose Ketones Leukocytes Nitrite Labor Signs Protein Cervic Dilation Cervic Effacement Cervic Station Type Weight in lbs Pre/Post Dialysis Refused Weight 185.435308994567 BP Diastolic BP Location Tested BP Systolic BP Type 78 L arm 120 sitting Fetus Heart Rate Present Fetus Movement A Yes Comments Platelet count down to 77, B 12 deficiency, started B12 injections. Will talk to M about steroid timing. Also low iron, taking [...] Weight in lbs Pre/Post Dialysis Refused Weight 186.238041058098 BP Diastolic BP Location Tested BP Systolic [...]
--- OUTSIDE RECORDS SUMMARY | 2025-07-26 07:31 | XMS_ITS | Encounter Summary ---
Author Organization [facility] Health Address [address] [facility] [place] [address] Care Team Providers Care Tire Curer Name Role Phone Ale Cueva MD Primary Care Provider [phone] Ale Cueva MD Unavailable [phone] Encounter Details Date Type Department Care Team (Late st Contact Info) Description 07/18/2025 Orders Only [facility] - Hematology/Oncology [address] [place] [address] Lauren Cedeno MD [address] [place] [address] Social History Tobacco Use Types Packs/Day Years Used Date Smoking Tobacco: Never Passive Smoke Exposure: Never Smokeless Tobacco: Never Alcohol Use Standard Drinks/Week Comments Not Currently 0 (1 standard drink = 0.6 oz pur e alcohol) PHQ-2 Answer Date Recorded Patient Health Questionnaire-2 Score 0 07/07/2025 AUDIT-C Answer Date Recorded Q1: How often do you have a drink containing alcohol? Never 07/07/2025 Q2: How many drinks containi ng alcohol do you have on a typical day when you are drinking? Patient does not drink Q3: How often do you have si x or more drinks on one occasion? Never 07/07/2025 Overall Financial Resource Strain (CARDIA) Answe r Date Recorded How hard is it for you to pa y for the very basics like food, housing, medical care, and heating? Not very hard 07/07/2025 [facility] Occupat ional Health - Occupational Stress Questionnaire Answer Date Recorded Do you feel stress - tense, restless, nervous, or anxious, or unable to sleep at night because your mind is troubled all the time - these days? Only a little 07/07/2025 Hunger Vital Sign Answer Date Recorded Within the past 12 months, y ou worried that your food would run out before you got the money to buy more. Never true 07/07/20 25 Within the past 12 months, t he food you bought just didn't last and you didn't have money to get more. Never true 07/07/2025 PRAPARE - Transportation Answer Date Re corded In the past 12 months, has l ack of transportation kept you from medical appointments or from getting medications? No 02/2025 In the past 12 months, has l ack of transportation kept you from meetings, work, or from getting things needed for daily living? No 07/07/2025 Housing Stability Vital Sign Answer Sheng e Recorded In the last 12 months, was t here a time when you were not able to pay the mortgage or rent on time? No 07/07/2025 In the past 12 months, how m any times have you moved where you were living? 1 07/07/2025 At any time in the past 12 m [facility], were you homeless or living in a penitentiary (including now)? No 07/07/2025 Education Answer Date Recorded What is the highest level of school you have completed or the highest degree you have received? 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 on file Not on file Not on file documented as of this encounter Plan of Treatment Upcoming Encounters Date Type Department Care Team (Late st Contact Info) Description 07/26/2025 9:00 AM COMMUNITY PLANNER Appointment [facility] & Care [address] [place] [address] Odilon Oquendo MD [address] [facility] [address] [place] [phone] 07/26/2025 9:45 AM COMMUNITY PLANNER Hospital Encounter [facility] [place] [address] Odilon Oquendo MD [address] [facility] [address] [place] [address] 08/02/2025 7:30 AM COMMUNITY PLANNER Hospital Encounter [facility] [address] [place] [address] 08/03/2025 9:00 AM COMMUNITY PLANNER Office Visit [facility] - Hematology/Oncology [address] [place] [address] Lauren Cedeno MD [address] [place] [id number] documented as of this encounter Visit Diagnoses Not on filedocumented in this encounter Care Teams Tire Curer Relationship Specialty Start Date End Date Ale Cueva MD [address] [place] [address] PCP - General 02/03/18 Ale Cueva MD [address] [place] [address] Pediatrics 02/03/18 documented as of this encounter
--- OUTSIDE RECORDS SUMMARY | 2025-07-26 07:31 | XMS_ITS | Continuity of Care Document ---
Author Organization [facility] Address [address] [place] [address] [place] [address] Care Team Providers Care Feed House Supervisor Name Role Phone SHERYL DICKSON Primary Care Provider [phone] Assessment No assessment recorded. Plan of Treatment Reminders Order Date Submit Date Provider Last Modified By Organization Details Last Modified Time Details Appointments OB ROUTINE 2024 02:45P Cosmo TOMLINSON MD Not available Not available Not available INDUCTION 2024 04:00P Cosmo TOMLINSON MD Not available Not available Not available Lab None recorded. Referral None recorded. Procedures None recorded. Surgeries None recorded. Imaging US, obstetric , follow-up 2024 025 [email or web address], [address], [place], [address], 05/02/2025 18:33:59 Medication Orders None recorded. Patient TargetsNo targets recorded. Patient InstructionsNo instructions recorded. Reason for Referral None Reported. Results Created Date Observation Date Name Description Value Unit Range Abnormal Flag Note LastModifiedBy Organization Detail LastModifiedTime 02/17/2002/16/2025 [UNIT Y] ANEUP LOIDY NIPT fraction 15.3% normal Not Available [facility] [address], [place], [address], 02/16/2025 19:59:32 02/17/20 25 02/16/2025 [UNIT Y] ANEUP LOIDY NIPT 22Q11.2 microdeletio n LOW RISK <1 in 10,000 normal Not Available [facility] [address], [place], [address], 02/16/2025 19:59:32 02/17/20 25 02/16/2025 [UNIT Y] ANEUP LOIDY NIPT sex chromosome aneuploidy NOT DETECT ED normal Not Available [facility] [address], [place], [address], 02/16/2025 19:59:32 02/17/20 25 02/16/2025 [UNIT Y] ANEUP LOIDY NIPT monosomy X LOW RISK <1 in 10,000 normal Not Available [facility] [address], [place], [address], 02/16/2025 19:59:32 02/17/20 25 02/16/2025 [UNIT Y] ANEUP LOIDY NIPT trisomy 13 LOW RISK <1 in 10,000 normal Not Available [facility] [address], [place], [address], 02/16/2025 19:59:32 02/17/20 25 02/16/2025 [UNIT Y] ANEUP LOIDY NIPT trisomy 18 LOW RISK <1 in 10,000 normal Not Available [facility] [address], [place], [address], 02/16/2025 19:59:32 02/17/20 25 02/16/2025 [UNIT Y] ANEUP LOIDY NIPT trisomy 21 LOW RISK <1 in 10,000 normal Not Available [facility] [address], [place], [address], 02/16/2025 19:59:32 02/17/20 25 02/16/2025 [UNIT Y] ANEUP LOIDY NIPT sex MALE normal Not Available [facility] [address], [place], [address], 02/16/2025 19:59:32 02/17/20 25 02/16/2025 [UNIT Y] ANEUP LOIDY NIPT gestation SINGLE TON normal Not Available [facility] [address], [place], [address], 02/16/2025 19:59:32 02/17/20 25 02/16/2025 [UNIT Y] ANEUP LOIDY NIPT for detailed report, see pdf See PDF normal Not Available [facility] [address], [place], [address], 02/16/2025 19:59:32 02/22/20 25 02/21/2025 [UNIT Y] FLETCHER Rose sickle cell disease/beta -thalassemia /hemoglobino pathies carrier screen NEGATI VE normal Not Available [facility] [address], [place], [address], 02/21/2025 14:09:41 02/22/20 25 02/21/2025 [UNIT Y] FLETCHER Rose alpha-thalas semia carrier screen NEGATI VE normal Not Available [facility] [address], [place], [address], 02/21/2025 14:09:41 02/22/20 25 02/21/2025 [UNIT Y] FLETCHER Rose cystic fibrosis carrier screen NEGATI VE normal Not Available [facility] [address], [place], [address], 02/21/2025 14:09:41 02/22/20 25 02/21/2025 [UNIT Y] FLETCHER Rose spinal muscular atrophy carrier screen NEGATI VE 2 SMN1 copies , SNP not presen t normal Not Available [facility] [address], [place], [address], 02/21/2025 14:09:41 02/22/20 25 02/21/2025 [UNIT Y] FLETCHER Rose for detailed report, see pdf See PDF normal Not Available [facility] [address], [place], [address], 02/21/2025 14:09:41 02/11/20 25 02/10/2025 CT/GC AND TRICH OMONA S VAGIN KARLO (RRNA ), URINE chlamydia trachomatis, PCR Negati ve negati ve Not Available [facility] (Lab) [address] [facility], [place], [address], 02/11/2025 12:05:33 02/11/20 25 02/10/2025 CT/GC AND TRICH OMONA S VAGIN KARLO (RRNA ), URINE neisseria gonorrhoeae, PCR Negati ve negati ve Not Available [facility] (Lab) [address] [facility], [place], [address], 02/11/2025 12:05:33 02/11/20 25 02/10/2025 CT/GC AND TRICH OMONA S VAGIN KARLO (RRNA ), URINE trichomonas vaginalis ribosomal RNA (rrna) Negati ve negati ve Not Available [facility] (Lab) [address] [facility], [place], [address], 02/11/2025 12:05:33 02/11/2002/10/2025 CBC W/DIF F WBC 8.7 10'3/ uL 3.5-10 .5 Not Available [facility] (Lab) [address] [place], [address], 02/11/2025 13:44:37 02/11/20 25 02/10/2025 CBC W/DIF F RBC 4.55 10'6/ uL (based on docume nted legal sex) 3.80-5 .20 Not Available [facility] (Lab) [address] [place], [address], 02/11/2025 13:44:37 02/11/20 25 02/10/2025 CBC W/DIF F HGB 13.7 g/dL (based on docume nted legal sex) 11.6-1 5.4 Not Available [facility] (Lab) [address] [facility], [place], [address], 02/11/2025 13:44:37 02/11/20 25 02/10/2025 CBC W/DIF F HCT 40.8 % (based on docume nted legal sex) 34.0-4 5.0 Not Available [facility] (Lab) [address] [facility], [place], [address], 02/11/2025 13:44:37 02/11/20 25 02/10/2025 CBC W/DIF F MCV 89.7 fL 80.0-9 9.0 Not Available [facility] (Lab) [address] [facility], [place], [address], 02/11/2025 13:44:37 02/11/20 25 02/10/2025 CBC W/DIF F MCH 30.1 pg 27.0-3 4.0 Not Available [facility] (Lab) [address] [facility], [place], [address], 02/11/2025 13:44:37 02/11/20 25 02/10/2025 CBC W/DIF F MCHC 33.6 g/dL 32.0-3 5.5 Not Available [facility] (Lab) [address] [facility], [place], [address], 02/11/2025 13:44:37 02/11/20 25 02/10/2025 CBC W/DIF F RDW 12.8 % 11.0-1 5.0 Not Available [facility] (Lab) [address] [facility], [place], [address], 02/11/2025 13:44:37 02/11/20 25 02/10/2025 CBC W/DIF F plt 125 10'3/ uL 150-40 0 low Not Available [facility] (Lab) [address] [facility], [place], [address], 02/11/2025 13:44:37 02/11/20 25 02/10/2025 CBC W/DIF F MPV 13.5 fL 8.8-12 .1 high Not Available [facility] (Lab) [address] [facility], [place], [address], 02/11/2025 13:44:37 02/11/20 25 02/10/2025 CBC W/DIF F NRBC's 0.0 % 0.0 Not Available [facility] (Lab) [address] [facility], [place], [address], 02/11/2025 13:44:37 02/11/20 25 02/10/2025 CBC W/DIF F absolute NRBCs 0.0 10'3/ uL no refere nce range establ ished Not Available [facility] (Lab) [address] [facility], [place], [address], 02/11/2025 13:44:37 02/11/20 25 02/10/2025 CBC W/DIF F neutrophils 76.5 % 34.0-7 3.0 high Not Available [facility] (Lab) [address] [facility], [place], [address], 02/11/2025 13:44:37 02/11/20 25 02/10/2025 CBC W/DIF F lymphocytes 14.4 % 15.0-5 0.0 low Not Available [facility] (Lab) [address] [facility], [place], [address], 02/11/2025 13:44:37 02/11/20 25 02/10/2025 CBC W/DIF F monocytes 8.3 % 1.0-15 .0 Not Available [facility] (Lab) [address] [facility], [place], [address], 02/11/2025 13:44:37 02/11/20 25 02/10/2025 CBC W/DIF F eosinophils 0.3 % 0.0-8. 0 Not Available [facility] (Lab) [address] [facility], [place], [address], 02/11/2025 13:44:37 02/11/2002/10/2025 CBC W/DIF F basophils 0.3 % 0.0-2. 0 Not Available [facility] (Lab) [address] , [place], [address], 02/11/2025 13:44:37 02/11/20 25 02/10/2025 CBC W/DIF [...] separ ately if prese nt. Not Available [facility] (Lab) [address], [place], [address], 02/11/2025 13:44:37 02/11/20 25 02/10/2025 CBC W/DIF F absolute neutrophils 6.6 10'3/ uL 1.5-8. 0 Not Available [facility] (Lab) [address], [place], [address], 02/11/2025 13:44:37 02/11/20 25 02/10/2025 CBC W/DIF F absolute lymphocytes 1.3 10'3/ uL 1.0-4. 0 Not Available [facility] (Lab) [address] , [place], [address], 02/11/2025 13:44:37 02/11/20 25 02/10/2025 CBC W/DIF F absolute monocytes 0.7 10'3/ uL 0.2-1. 0 Not Available [facility] (Lab) [address] , [place], [address], 02/11/2025 13:44:37 02/11/20 25 02/10/2025 CBC W/DIF F absolute eosinophils 0.0 10'3/ uL 0.0-0. 6 Not Available [facility] (Lab) [address], [place], [address], 02/11/2025 13:44:37 02/11/20 25 02/10/2025 CBC W/DIF F absolute basophils 0.0 10'3/ uL 0.0-0. 3 Not Available [facility] (Lab) [address] [facility], [place], [address], 02/11/2025 13:44:37 02/11/20 25 02/10/2025 CBC W/DIF F absolute immature granulocytes 0.0 10'3/ uL 0.00-0 .10 Refer ence range s for nonbi nary/ inter sex or unspe cifie d gende r patie nts have not been estab lishe d. Pleluis e refer to the tony wing table for range s estab lishe d for cisge nder patie nts and evalu ate in the clini randal kiera xt of the indiv idual patie nt: https ://la and book. nm.or g/gen derx Not Available [facility] (Lab) [address] [facility], [place], [address], 02/11/2025 13:44:37 02/11/20 25 02/10/2025 HIV 1/2 ANTIG EN/AN TIBOD Y, REFLE X CONFI RMATI ON HIV antigen/anti body Nonrea ctive nonrea ctive HIV-1 antig en and HIV-1 /HIV- 2 antib odies were not detec alfredo. No labor atory evide nce of HIV infec tion. Not Available [facility] (Lab) [address] [facility], [place], [address], 02/11/2025 13:44:38 02/11/20 25 02/10/2025 HEPAT ITIS B SURFA CE ANTIG EN hepatitis B surface antigen Non-re active non-re active This assay was perfo rmed using [employer] ratio n reage nts and test kits. Value s obtai evelyn with other assay metho ds or kits canno t be used inter collins eably . Not Available [facility] (Lab) [address] [facility], [place], [address], 02/11/2025 13:44:38 02/11/20 25 02/10/2025 HEPAT ITIS C ANTIB TIM SCREE N, REFLE X TO CONFI RMATI ON hepatitis C antibody Non-re active non-re active Antib odies to HCV Not Detec alfredo, does not exclu de the possi bilit y of expos ure to HCV. Not Available [facility] (Lab) [address], [place], [address], 02/11/2025 13:44:39 02/11/20 25 02/10/2025 RUBEL LA IGG ANTIB TIM, QUANT rubella antibodies, IgG Reacti ve reacti ve Not Available [facility] (Lab) [address], [place], [address], 02/11/2025 13:44:39 02/11/20 25 02/10/2025 RUBEL LA IGG ANTIB TIM, QUANT rubella antibodies, IgG quant 47.1 IU/mL >=10 Non-r eacti ve (Non- Immun e) <10 IU/mL React kvng (Immu ne) > or = 10 IU/mL Not Available [facility] (Lab) [address], [place], [address], 02/11/2025 13:44:39 02/11/20 25 02/10/2025 TYPE/ RH/SC REEN ABO/Rh type O POS Not Available [facility] (Lab) [address], [place], [address], 02/11/2025 13:44:40 02/11/20 25 02/10/2025 TYPE/ RH/SC REEN antibody screen NEG Not Available [facility] (Lab) [address], [place], [address], 02/11/2025 13:44:40 02/11/20 25 02/10/2025 TYPE/ RH/SC REEN exp date 2024 23:59 Not Available [facility] (Lab) [address] [facility], [place], [address], 02/11/2025 13:44:40 02/11/20 25 02/10/2025 HEMOG LOBIN A1C hemoglobin A1C 5.1 % 4.0-5. 6 The Ameri can Diabe umair [employer] iatio n recom mends that a prima ry goal of thera py glen d be a HBA1C of < 7% and that physi cians shoul d reeva luate the treat ment regim en in patie nts with HBA1C value s consi stent ly > 8%. <5.7% Vianey l 5.7 - 6.4% Incre ased risk for diabe umair >=6.5 % Diagn ostic of diabe umair <7.0% Goal of thera py >8.0% Actio n sugge sted Not Available [facility] (Lab) [address] [facility], [place], [address], 02/11/2025 13:44:40 02/11/20 25 02/10/2025 RPR SCREE N, REFLE X TITER /CONF IRMAT ION RPR qualitative Nonrea ctive nonrea ctive Not Available [facility] (Lab) [address] , [place], [address], 02/11/2025 13:44:41 02/11/20 25 02/10/2025 drug scree n, urine Amphetamines : negati ve Not Available [place] [address], [place], [address], 02/10/2025 12:55:20 02/11/20 25 02/10/2025 drug scree n, urine Cannabinoids : negati ve Not Available [place] [address], [place], [address], 02/10/2025 12:55:20 02/11/20 25 02/10/2025 drug scree n, urine Cocaine: negati ve Not Available [place] [address], [place], [address], 02/10/2025 12:55:20 02/11/20 25 02/10/2025 drug scree n, urine Opiates: negati ve Not Available [address], [place], [address], 02/10/2025 12:55:20 02/11/20 25 02/10/2025 drug scree n, urine Barbiturates : negati ve Not Available [place] [address], [place], [address], 02/10/2025 12:55:20 02/11/20 25 02/10/2025 drug scree n, urine Benzodiazepi john: negati ve Not Available [place] [address], [place], [address], 02/10/2025 12:55:20 03/10/20 25 03/10/2025 CULTU RE: URINE result report SEE RESULT S BELOW Test: Cultu re: Urine Speci men Sourc e: Urine Voide d Speci men Type: Urine Speci men Date: 2024 0938 Resul t Date: 20242 Resul t Statu s: Final resul t Abnor mal: No Resul ting Lab: [facility] [address] [facility] [address] Tel: [phone] CULTU RE ----- ----- ----- --- No growt h in 1 day (dete ction level of 10,00 0 colon ies / ml.) Not Available [facility] (Lab) [address], [place], [address], 03/11/2025 23:15:50 04/03/20 25 04/03/2025 CBC W/DIF F WBC 12.9 10'3/ uL 3.5-10 .5 high Not Available [facility] (Lab) [address], [place], [address], 04/04/2025 04:39:51 04/03/2004/03/2025 CBC W/DIF F RBC 4.33 10'6/ uL (based on docume nted legal sex) 3.80-5 .20 Not Available [facility] (Lab) [address], [place], [address], 04/04/2025 04:39:51 04/03/2004/03/2025 CBC W/DIF F HGB 13.2 g/dL (based on docume nted legal sex) 11.6-1 5.4 Not Available [facility] (Lab) [address], [place], [address], 04/04/2025 04:39:51 04/03/2004/03/2025 CBC W/DIF F HCT 40.2 % (based on docume nted legal sex) 34.0-4 5.0 Not Available [facility] (Lab) [address], [place], [address], 04/04/2025 04:39:51 04/03/2004/03/2025 CBC W/DIF F MCV 92.8 fL 80.0-9 9.0 Not Available [facility] (Lab) [address] [facility], [place], [address], 04/04/2025 04:39:51 04/03/2004/03/2025 CBC W/DIF F MCH 30.5 pg 27.0-3 4.0 Not Available [facility] (Lab) [address] [facility], [place], [address], 04/04/2025 04:39:51 04/03/2004/03/2025 CBC W/DIF F MCHC 32.8 g/dL 32.0-3 5.5 Not Available [facility] (Lab) [address], [place], [address], 04/04/2025 04:39:51 04/03/2004/03/2025 CBC W/DIF F RDW 13.0 % 11.0-1 5.0 Not Available [facility] (Lab) [address] [facility], [place], [address], 04/04/2025 04:39:51 04/03/2004/03/2025 CBC W/DIF F plt 131 10'3/ uL 150-40 0 low Not Available [facility] (Lab) [address] [facility], [place], [address], 04/04/2025 04:39:51 04/03/2004/03/2025 CBC W/DIF F MPV 13.9 fL 8.8-12 .1 high Not Available [facility] (Lab) [address] [facility], [place], [address], 04/04/2025 04:39:51 04/03/2004/03/2025 CBC W/DIF F NRBC's 0.0 % 0.0 Not Available [facility] (Lab) [address] [facility], [place], [address], 04/04/2025 04:39:51 04/03/2004/03/2025 CBC W/DIF F absolute NRBCs 0.0 10'3/ uL no refere nce range establ ished Not Available [facility] (Lab) [address] [facility], [place], [address], 04/04/2025 04:39:51 04/03/2004/03/2025 CBC W/DIF F neutrophils 76.6 % 34.0-7 3.0 high Not Available [facility] (Lab) [address] [facility], [place], [address], 04/04/2025 04:39:51 04/03/2004/03/2025 CBC W/DIF F lymphocytes 14.2 % 15.0-5 0.0 low Not Available [facility] (Lab) [address] [place], [address], 04/04/2025 04:39:51 04/03/2004/03/2025 CBC W/DIF F monocytes 7.6 % 1.0-15 .0 Not Available [facility] (Lab) [address], [place], [address], 04/04/2025 04:39:51 04/03/2004/03/2025 CBC W/DIF F eosinophils 0.7 % 0.0-8. 0 Not Available [facility] (Lab) [address], [place], [address], 04/04/2025 04:39:51 04/03/2004/03/2025 CBC W/DIF F basophils 0.4 % 0.0-2. 0 Not Available [facility] (Lab) [address], [place], [address], 04/04/2025 04:39:51 04/03/2004/03/2025 CBC W/DIF F immature granulocytes 0.5 % no define d refere nce range Immat ure Granu locyt es (IG) repre sents autom ated enume ratio n of Metam yeloc ytes, Myelo cytes and Promy elocy umair when IG is < 5%. Blast s are not inclu ded in IG and repor alfredo separ ately if prese nt. Not Available [facility] (Lab) [address], [place], [address], 04/04/2025 04:39:51 04/03/2004/03/2025 CBC W/DIF F absolute neutrophils 9.9 10'3/ uL 1.5-8. 0 high Not Available [facility] (Lab) [address], [place], [address], 04/04/2025 04:39:51 04/03/2004/03/2025 CBC W/DIF F absolute lymphocytes 1.8 10'3/ uL 1.0-4. 0 Not Available [facility] (Lab) [address], [place], [address], 04/04/2025 04:39:51 04/03/2004/03/2025 CBC W/DIF F absolute monocytes 1.0 10'3/ uL 0.2-1. 0 Not Available [facility] (Lab) [address] [facility], [place], [address], 04/04/2025 04:39:51 04/03/2004/03/2025 CBC W/DIF F absolute eosinophils 0.1 10'3/ uL 0.0-0. 6 Not Available [facility] (Lab) [address] [facility], [place], [address], 04/04/2025 04:39:51 04/03/2004/03/2025 CBC W/DIF F absolute basophils 0.1 10'3/ uL 0.0-0. 3 Not Available [facility] (Lab) [address] [facility], [place], [address], 04/04/2025 04:39:51 04/03/2004/03/2025 CBC W/DIF F absolute immature granulocytes 0.1 10'3/ uL 0.00-0 .10 Refer ence range s for nonbi nary/ inter sex or unspe cifie d gende r patie nts have not been estab lishe d. [facility]as e [facility] for range s estab lishe d for cisge nder patie nts and evalu ate in the clini randal kiera xt of the indiv idual patie nt: https ://misael calzada book. nm.or g/gen derx Not Available [facility] (Lab) [address] [facility], [place], [address], 04/04/2025 04:39:51 05/02/2005/02/2025 CULTU RE: URINE result report SEE RESULT S BELOW Test: Cultu re: Urine Speci men Sourc e: Urine - Clean Catch Speci men Type: Urine Speci men Date: 1502 Resul t Date: 0404 Resul t Statu s: Final resul t Abnor mal: No Resul stefang Lab: [facility] [address] [facility] [address] [facility] [address] Tel: CULTU RE ----- ----- ----- --- No growt h in 1 day (dete ction level of 10,00 0 colon ies / ml.) Not Available [facility] (Lab) [address], [place], [address], 05/04/2025 05:09:17 02/11/20 25 02/10/2025 US, obste tric, nucha l trans lucen cy No observ ation record ed. [email or web address] [address], [place], [address], 02/10/2025 18:38:42 02/11/20 25 02/10/2025 US, obste tric, follo w-up No observ ation record ed. [email or web address] [address], [place], [address], 02/13/2025 09:20:03 04/03/20 25 04/03/2025 US, obste tric, 2nd or 3rd trime ster No observ ation record ed. [email or web address] [place] [address], [place], [address], 04/03/2025 18:43:20 04/03/20 25 04/03/2025 US, obste tric, 2nd or 3rd trime ster No observ ation record ed. [address], [place], [address], 04/05/2025 17:47:52 04/21/2004/21/2025 non-s tress test No observ ation record ed. [email or web address], [place], [address], 04/24/2025 12:03:28 05/02/2025 0505/02/2025 US, obste tric, follo w-up No observ ation record ed. [facility] [address], [place], [address], 05/02/2025 12:58:26 05/02/20 25 05/02/2025 US, obste tric, follo w-up No observ ation record ed. ROBERT [address], [place], [address], 05/03/2025 18:13:01 05/29/20 25 05/29/2025 non-s tress test No observ ation record ed. [address], [address], 05/31/2025 15:39:22 06/20/20 25 06/20/2025 imagi ng/di agnos tic resul t No observ ation record ed. [facility] [address] [place], [address], 06/20/2025 13:33:45 06/20/2006/20/2025 US, obste tric, follo w-up No observ ation record ed. [email or web address] [facility] [address] [place], [address], 06/27/2025 17:32:46 07/03/20 25 07/03/2025 non-s tress test No observ ation record ed. [address] [facility] [place], [address], 07/19/2025 15:34:42 07/03/2007/03/2025 imagi ng/di agnos tic resul t No observ ation record ed. [address], [address], 07/03/2025 11:55:37 Result Notes None recorded. Problems Name Problem SNOMED Code Status Onset Date Resolution Date Notes Provider Name and Address Organization Details Recorded Time Anxiety 99181141 Active [address] [facility] 5 11:01:06 91077182 Active [address] [facility] 5 11:57:32 Platelet count below reference range 501347933 Active 2024 Referral faxed to [facility] 06/01 scheduled 06/20 0900 Level II us and consult Zoey Sukhdeep [facility] 5 11:50:53 Problem Notes None recorded. Procedures Surgical History Date Name Laterality Status Provider Name and Address Organization Details Recorded Time 5 Date of Last Pap Smear completed Kristen Ruffin [facility] 01/13/2025 11:01:13 7 operative procedure on wrist completed Aleah Bedolla [facility] 02/10/2025 11:57:07 Imaging Results None recorded. [...] Not Avai lable Vitals Date Recorded Body height Body mass index (BMI) Body weight Systolic And Diastolic Provider Name and Address Organization Details Last Updated DateTime 05/02/2025 170.18 cm 25.8 kg/m2 17438.74 g 124/80 mm[Hg] Steph Lezama [facility] 05/02/2025 10:13:30 Social History Question Answer Notes LastModified by Organizat ion Details LastModified Time Tobacco Smoking Status Never Smoker Kristen sánchez, [facility] 01/13/2025 11:05:22 If You Are , What Was Your Level Of Alcohol Consumption Prior To ? Occasional [email or web address] Information not available 01/13/2025 Are You Blind Or Do You Have Difficulty Seeing? No [email or web address] Information n ot available 01/13/2025 What Is Your Level Of Caffeine Consumption? Occasional [email or web address] Information not available 01/13/2025 In The 14 Days Before Symptom Onset, Have You Had Close Contact With A Laboratory-confirm ed COVID-19 While That Case Was Ill? No [email or web address] Information n ot available 01/13/2025 In The 14 Days Before Symptom Onset, Have You Had Close Contact With A Person Who Is Under Investigation For COVID-19 While That Person Was Ill? No [email or web address] Information not available 01/13/2025 Have You Been To An Area Known To Be High Risk For COVID-19? No [email or web address] Information not available 01/13/2025 Are You Deaf Or Do You Have Serious Difficulty Hearing? No [email or web address] Information not available 01/13/2025 Do You Have Smoke And Carbon Monoxide Detectors In Your Home? Yes [email or web address] Information not available 01/13/2025 Do You Use Sunscreen Routinely? Yes [email or web address] Information not available 01/13/2025 Has Tobacco Cessation Counseling Been Provided? No [email or web address] Information not available 01/13/2025 Have You Used IV Drugs? No [email or web address] Information not available 01/13/2025 Do You Have Difficulty Walking Or Climbing Stairs? No [email or web address] Information not available 01/13/2025 Sex: Unknown Functional Status Question Answer Note LastModified by Organizat ion Details LastModified Time Do you use any illicit or recreational drugs? No Information not available 01/13/2025 Do you or have you ever used any other forms of tobacco or nicotine? Yes [email or web address] Information not available 01/13/2025 What is your level of alcohol consumption? None [email or web address] Information not available 01/13/2025 Are you able to walk independently without assistance or assistive devices? YESWOREST Information not available 01/13/2025 Are you able to care for yourself independently? Yes [email or web address] Information not available 01/13/2025 Do you have difficulty dressing, bathing, grooming, or toileting? No [email or web address] Information not available 01/13/2025 Do you or have you ever used e-cigarettes or vape? Former user of electronic cigarettes [email or web address] Information not available 01/13/2025 Mental Status None recorded. Family History Relationship Description Onset Age of this Age Resolved Age Notes LastModified by Organization Details LastModified Time Unspecified Relation Family history unknown [email or web address] Not available 2024 13:48:03 Paternal Grandfather Malignant neoplasm of prostate [email or web address] Not available 07/02 11:19:15 Maternal Grandfather Malignant neoplasm of lung [email or web address] Not available 01/13 11:03:40 Maternal Grandmother Malignant neoplasm of pancreas [email or web address] Not available 07/02 11:19:15 Maternal Aunt Malignant neoplasm of breast Not available 2024 13:48:03 Father Leukemia [email or web address] Not availa ble 07/24/2025 11:19:16 Mother Diabetes mellitus Not available 01/13 11:04:57 Medical History Condition [...] ICD10 Code Diagnosis IMO Codes Diagnosis Note [id number] MD Jayjay HALE [address] [address] 04/03/2025 14:40:22 04/03/2025 16:20:20 screening for malformation 363575131 Z36.3 Z3A.20 [id number] MD Jayjay HALE [address],[place] [address] 04/03/2025 14:44:57 04/03/2025 16:37:32 Thrombocytopenic disorder 562279429 D69.6 27803 - plt 125 on new OB labs- repeat today Gestation period, 20 weeks [id number] Z3A.20 [id number] - continue PNV [id number] JOLIE TOMLINSON MD [place] [address],[place] [address] 05/02/2025 09:18:09 05/02/2025 10:11:24 Follow-up encounter [id number] Z36.2 Z3A.24 [id number] JOLIE TOMLINSON MD [place] [address],[place] [address] 05/02/2025 09:25:23 05/02/2025 10:55:47 Nausea and vomiting 05192255 R11.2 Second tri mester 48252566 Z34.02 [id number] Health Concerns Section Related Observation LastModified by Organization Detai ls LastModified Time None Recorded Concern Status LastModified by Organization Details LastModified Time None Recorded Payers Encounter Date Sequence Insurance Name Policy Number Policy Marie Covered Member ID Marie Member ID Guarantor Name 05/02/2025 1 [employer]) [id number] Kya Angulo [id number] Kya Angulo 05/02/2025 2 [place] [facility] Gabby Jose [id number] Kya Angulo Notes Date Note Type Note Provider Name and Address Organization Details Recorded Time 05/02/2025 text/html Generic HPI TemplateReported by Patient JOLIE TOMLINSON MD [address], [place], [address], [place] - [facility] 05/02/2025 10:43:56 OBGyn Episode Ob Episode Information Episode Created Date Number of Fetuses Patient Bloodtype Patient rh Status Prepregnancy Weight lbs Domestic Partner Domestic Partner Phone Father Name Health Plan Specialist Status 02/11/20 25 1 O Positive 150 Jovany Juwan OPEN Fetus Data First Name Last Name Admitted to NICU Weight (g) Sex Living Outcome Pediatric Complications Fetus ID Race Codes Race Delivery Type [id number] Problems Problem Notes RSV vaccine received 07/04/25 . Problem Name Start Date End Date Resolution Snomed Code Not e Platelet count below reference range 06/01/2025 [id number] Referral fax ed to [facility] 06/01 scheduled 06/20 0900 Level II us [...] Date Ultra Sound Latest Days Gestation 0 [email or web address] 02/10/2025 08/21/20 25 0 Pre- Flowsheet Flowsheet Date 02/10/2025 Kirkland Score Blood Edema Fundus Height Fundus Units Glucose Ketones Leukocytes Nitrite Labor Signs Protein Cervic Dilation Cervic Effacement Cervic Station Type Weight in lbs Pre/Post Dialysis Refused Weight 153.396753704696 BP Diastolic BP Location Tested BP Systolic BP Type 77 L arm 122 sitting Fetus Heart Rate Present A Present Fetus Movement Comments Patient presents to [facility] care. otherwise uncomplicated. No bleeding or [...] Weight in lbs Pre/Post Dialysis Refused Weight 156.747703590900 BP Diastolic BP Location Tested BP Systolic [...] Weight in lbs Pre/Post Dialysis Refused Weight 160.255075922236 BP Diastolic BP Location Tested BP Systolic [...] Weight in lbs Pre/Post Dialysis Refused Weight 165.075934812422 BP Diastolic BP Location Tested BP Systolic [...] Type Weight in lbs Pre/Post Dialysis Refused 176.932589208349 BP Diastolic BP Location Tested BP Systolic BP Type 78 L arm 118 sitting Fetus Heart Rate Present A 150 Fetus Movement A Yes Comments Had an episode of DFM yester day, went to [facility] and had negative workup. No cramping or bleeding. GCT and labs today, will draw CBC as well. Discussed Tdap, RSV, and flu vaccines. RTC 2 weeks. Flowsheet Date 06/13/2025 Kirkland Score Blood Edema Fundus Height Fundus Units Glucose Ketones Leukocytes Nitrite Labor Signs Protein Cervic Dilation Cervic Effacement Cervic Station Type Weight in lbs Pre/Post Dialysis Refused 181.784115161644 BP Diastolic BP Location Tested BP Systolic [...] Weight in lbs Pre/Post Dialysis Refused Weight 178.669962116688 BP Diastolic BP Location Tested BP Systolic BP Type 78 L arm 112 sitting Fetus Heart Rate Present A 140 Fetus Movement A Yes Comments Good movement. No cram ping or bleeding. Saw MFM, recommend platelet counts every visit. Dairy Farm Manager appointment next week to determine if autoimmune vs gestational. EFW 92%, AC 93%; discussed 39 week induction, plan for 12/15 PM. Preadmission scheduled. RSV vaccine discussed. RTC 2 weeks. Flowsheet Date 07/12/2025 Kirkland Score Blood Edema Fundus Height Fundus Units Glucose Ketones Leukocytes Nitrite Labor Signs Protein Cervic Dilation Cervic Effacement Cervic Station Type Weight in lbs Pre/Post Dialysis Refused Weight 185.249236464762 BP Diastolic BP Location Tested BP Systolic BP Type 78 L arm 120 sitting Fetus Heart Rate Present Fetus Movement A Yes Comments Platelet count down to 77, B 12 deficiency, started B12 injections. Will talk to [facility] about steroid timing. Also low iron, taking [...] Weight in lbs Pre/Post Dialysis Refused Weight 186.603873166596 BP Diastolic BP Location Tested BP Systolic [...]
--- OUTSIDE RECORDS SUMMARY | 2025-07-26 07:31 | XMS_ITS | Clinical Summary ---
Author Organization [address] Address [address] [facility] [facility] [place] [address] Care Team Providers Care Outside Physical Damage Appraiser Name Role Phone No, Physician Primary Care Provider [phone] Allergies No known active allergies Medications No [...] Plan of Treatment Not on file Insurance [employer] OOS [place] OOS Care Teams Outside Physical Damage Appraiser Relationship Specialty Start Date End Date No, Physician PCP - General 01/23/22
--- OUTSIDE RECORDS SUMMARY | 2025-07-26 07:31 | XMS_ITS | Continuity of Care Document ---
Author Organization [facility] Address [address] [place] [address] [place] [address] Care Team Providers Care Cat Hooker Name Role Phone SHERYL DICKSON Primary Care [...] None recorded. Imaging None recorded. Medication Orders ondansetr on HCl 4 mg tablet 2024 025 ROBERT [id number], [address], [place], [place], [id number], 05/02/2025 10:43:50 Patient TargetsNo targets recorded. Patient InstructionsNo instructions recorded. Reason for Referral None Reported. Results Created Date Observation Date Name Description Value Unit Range Abnormal Flag Note LastModifiedBy Organization Detail LastModifiedTime 02/17/2002/16/2025 [UNIT Y] ANEUP LOIDY NIPT fraction 15.3% normal Not Available [facility] [address], [place], [address], 02/16/2025 19:59:32 02/17/20 25 02/16/2025 [UNIT Y] ANEUP LOIDY NIPT 22Q11.2 microdeletio n LOW RISK <1 in 10,000 normal Not Available [facility] [address], [place], [address], 02/16/2025 19:59:32 02/17/20 25 02/16/2025 [UNIT Y] ANEUP LOIDY NIPT sex chromosome aneuploidy NOT DETECT ED normal Not Available [facility] [address], [place], [address], 02/16/2025 19:59:32 02/17/20 25 02/16/2025 [UNIT Y] ANEUP LOIDY NIPT monosomy X LOW RISK <1 in 10,000 normal Not Available [facility] [address], [place], [address], 02/16/2025 19:59:32 02/17/20 25 02/16/2025 [UNIT Y] ANEUP LOIDY NIPT trisomy 13 LOW RISK <1 in 10,000 normal Not Available [facility] [address], [place], [address], 02/16/2025 19:59:32 02/17/20 25 02/16/2025 [UNIT Y] ANEUP LOIDY NIPT trisomy 18 LOW RISK <1 in 10,000 normal Not Available [facility] [address], [place], [address], 02/16/2025 19:59:32 02/17/20 25 02/16/2025 [UNIT Y] ANEUP LOIDY NIPT trisomy 21 LOW RISK <1 in 10,000 normal Not Available [facility] [address], [place], [address], 02/16/2025 19:59:32 02/17/20 25 02/16/2025 [UNIT Y] ANEUP LOIDY NIPT sex MALE normal Not Available [facility] [address], [place], [address], 02/16/2025 19:59:32 02/17/20 25 02/16/2025 [UNIT Y] ANEUP LOIDY NIPT gestation SINGLE TON normal Not Available [facility] [address], [place], [address], 02/16/2025 19:59:32 02/17/20 25 02/16/2025 [UNIT Y] ANEUP LOIDY NIPT for detailed report, see pdf See PDF normal Not Available [facility] [address], [place], [address], 02/16/2025 19:59:32 02/22/20 25 02/21/2025 [UNIT Y] FLETCHER Rose sickle cell disease/beta -thalassemia /hemoglobino pathies carrier screen NEGATI VE normal Not Available [facility] [address], [place], [address], 02/21/2025 14:09:41 02/22/20 25 02/21/2025 [UNIT Y] FLETCHER Rose alpha-thalas semia carrier screen NEGATI VE normal Not Available [facility] [address], [place], [address], 02/21/2025 14:09:41 02/22/20 25 02/21/2025 [UNIT Y] FLETCHER Rose cystic fibrosis carrier screen NEGATI VE normal Not Available [facility] [address], [place], [address], 02/21/2025 14:09:41 02/22/20 25 02/21/2025 [UNIT Y] FLETCHER Rose spinal muscular atrophy carrier screen NEGATI VE 2 SMN1 copies , SNP not presen t normal Not Available [facility] [address], [place], [address], 02/21/2025 14:09:41 02/22/20 25 02/21/2025 [UNIT Y] FLETCHER Rose for detailed report, see pdf See PDF normal Not Available [facility] [address], [place], [address], 02/21/2025 14:09:41 02/11/2002/10/2025 CT/GC AND TRICH OMONA S VAGIN KARLO (RRNA ), URINE chlamydia trachomatis, PCR Negati ve negati ve Not Available [facility] (Lab) [address], [place], [address], 02/11/2025 12:05:33 02/11/2002/10/2025 CT/GC AND TRICH OMONA S VAGIN KARLO (RRNA ), URINE neisseria gonorrhoeae, PCR Negati ve negati ve Not Available [facility] (Lab) [address], [place], [address], 02/11/2025 12:05:33 02/11/20 25 02/10/2025 CT/GC AND TRICH OMONA S VAGIN KARLO (RRNA ), URINE trichomonas vaginalis ribosomal RNA (rrna) Negati ve negati ve Not Available [facility] (Lab) [address], [place], [address], 02/11/2025 12:05:33 02/11/2002/10/2025 CBC W/DIF F WBC 8.7 10'3/ uL 3.5-10 .5 Not Available [facility] (Lab) [address], [place], [address], 02/11/2025 13:44:37 02/11/20 25 02/10/2025 CBC W/DIF F RBC 4.55 10'6/ uL (based on docume nted legal sex) 3.80-5 .20 Not Available [facility] (Lab) [address] [place], [address], 02/11/2025 13:44:37 02/11/20 25 02/10/2025 CBC W/DIF F HGB 13.7 g/dL (based on docume nted legal sex) 11.6-1 5.4 Not Available [facility] (Lab) [address], [place], [address], 02/11/2025 13:44:37 02/11/2002/10/2025 CBC W/DIF F HCT 40.8 % (based on docume nted legal sex) 34.0-4 5.0 Not Available [facility] (Lab) [address], [place], [address], 02/11/2025 13:44:37 02/11/20 25 02/10/2025 CBC W/DIF F MCV 89.7 fL 80.0-9 9.0 Not Available [facility] (Lab) [address], [place], [address], 02/11/2025 13:44:37 02/11/2002/10/2025 CBC W/DIF F MCH 30.1 pg 27.0-3 4.0 Not Available [facility] (Lab) [address], [place], [address], 02/11/2025 13:44:37 02/11/20 25 02/10/2025 CBC W/DIF F MCHC 33.6 g/dL 32.0-3 5.5 Not Available [facility] (Lab) [address], [place], [address], 02/11/2025 13:44:37 02/11/20 25 02/10/2025 CBC W/DIF F RDW 12.8 % 11.0-1 5.0 Not Available [facility] (Lab) [address], [place], [address], 02/11/2025 13:44:37 02/11/20 25 02/10/2025 CBC W/DIF F plt 125 10'3/ uL 150-40 0 low Not Available [facility] (Lab) [address], [place], [address], 02/11/2025 13:44:37 02/11/20 25 02/10/2025 CBC W/DIF F MPV 13.5 fL 8.8-12 .1 high Not Available [facility] (Lab) [address], [place], [address], 02/11/2025 13:44:37 02/11/2002/10/2025 CBC W/DIF F NRBC's 0.0 % 0.0 Not Available [facility] (Lab) [address], [place], [address], 02/11/2025 13:44:37 02/11/20 25 02/10/2025 CBC W/DIF F absolute NRBCs 0.0 10'3/ uL no refere nce range establ ished Not Available [facility] (Lab) [address], [place], [address], 02/11/2025 13:44:37 02/11/2002/10/2025 CBC W/DIF F neutrophils 76.5 % 34.0-7 3.0 high Not Available [facility] (Lab) [address], [place], [address], 02/11/2025 13:44:37 02/11/20 25 02/10/2025 CBC W/DIF F lymphocytes 14.4 % 15.0-5 0.0 low Not Available [facility] (Lab) [address], [place], [address], 02/11/2025 13:44:37 02/11/2002/10/2025 CBC W/DIF F monocytes 8.3 % 1.0-15 .0 Not Available [facility] (Lab) [address], [place], [address], 02/11/2025 13:44:37 02/11/20 25 02/10/2025 CBC W/DIF F eosinophils 0.3 % 0.0-8. 0 Not Available [facility] (Lab) [address] [place], [address], 02/11/2025 13:44:37 02/11/20 25 02/10/2025 CBC W/DIF F basophils 0.3 % 0.0-2. 0 Not Available [facility] (Lab) [address], [place], [address], 02/11/2025 13:44:37 02/11/20 25 02/10/2025 CBC W/DIF F immature granulocytes 0.2 % no define d refere nce range Immat ure Granu locyt es (IG) repre sents autom ated enume ratio n of Metam yeloc ytes, Myelo cytes and Promy elocy muair when IG is < 5%. Blast s are not inclu ded in IG and repor alfredo separ ately if prese nt. Not Available [facility] (Lab) [address] , [place], [address], 02/11/2025 13:44:37 02/11/20 25 02/10/2025 CBC W/DIF F absolute neutrophils 6.6 10'3/ uL 1.5-8. 0 Not Available [facility] (Lab) [address], [place], [address], 02/11/2025 13:44:37 02/11/20 25 02/10/2025 CBC W/DIF F absolute lymphocytes 1.3 10'3/ uL 1.0-4. 0 Not Available [facility] (Lab) [address], [place], [address], 02/11/2025 13:44:37 02/11/20 25 02/10/2025 CBC W/DIF F absolute monocytes 0.7 10'3/ uL 0.2-1. 0 Not Available [facility] (Lab) [address] , [place], [address], 02/11/2025 13:44:37 02/11/20 25 02/10/2025 CBC W/DIF F absolute eosinophils 0.0 10'3/ uL 0.0-0. 6 Not Available [facility] (Lab) [address], [place], [address], 02/11/2025 13:44:37 02/11/20 25 02/10/2025 CBC W/DIF F absolute basophils 0.0 10'3/ uL 0.0-0. 3 Not Available [facility] (Lab) [address], [place], [address], 02/11/2025 13:44:37 02/11/20 25 02/10/2025 CBC W/DIF F absolute immature granulocytes 0.0 10'3/ uL 0.00-0 .10 Refer ence range s for nonbi nary/ inter sex or unspe cifie d gende r patie nts have not been estab lishe d. Pleas e refer to the dedricko wing table for range s estab lishe d for cisge nder patie nts and evalu ate in the clini randal kiera xt of the indiv idual patie nt: https ://misael calzada book. nm.or g/gen derx Not Available [facility] (Lab) [address], [place], [address], 02/11/2025 13:44:37 02/11/20 25 02/10/2025 HIV 1/2 ANTIG EN/AN TIBOD Y, REFLE X CONFI RMATI ON HIV antigen/anti body Nonrea ctive nonrea ctive HIV-1 antig en and HIV-1 /HIV- 2 antib odies were not detec alfredo. No labor atory evide nce of HIV infec tion. Not Available [facility] (Lab) [address], [place], [address], 02/11/2025 13:44:38 02/11/20 25 02/10/2025 HEPAT ITIS B SURFA CE ANTIG EN hepatitis B surface antigen Non-re active non-re active This assay was perfo rmed using [employer] ratio n reage nts and test kits. Value s obtai evelyn with other assay metho ds or kits canno t be used inter collins eably . Not Available [facility] (Lab) [address], [place], [address], 02/11/2025 13:44:38 02/11/20 25 02/10/2025 HEPAT ITIS C ANTIB TIM SCREE N, REFLE X TO CONFI RMATI ON hepatitis C antibody Non-re active non-re active Antib odies to HCV Not Detec alfredo, does not exclu de the possi bilit y of expos ure to HCV. Not Available [facility] (Lab) [address], [place], [address], 02/11/2025 13:44:39 02/11/20 25 02/10/2025 RUBEL LA IGG ANTIB TIM, QUANT rubella antibodies, IgG Reacti ve reacti ve Not Available [facility] (Lab) [address], [place], [address], 02/11/2025 13:44:39 02/11/20 25 02/10/2025 RUBEL LA IGG ANTIB TIM, QUANT rubella antibodies, IgG quant 47.1 IU/mL >=10 Non-r eacti ve (Non- Immun e) <10 IU/mL React kvng (Immu ne) > or = 10 IU/mL Not Available [facility] (Lab) [address], [place], [address], 02/11/2025 13:44:39 02/11/20 25 02/10/2025 TYPE/ RH/SC REEN ABO/Rh type O POS Not Available [facility] (Lab) [address], [place], [address], 02/11/2025 13:44:40 02/11/20 25 02/10/2025 TYPE/ RH/SC REEN antibody screen NEG Not Available [facility] (Lab) [address], [place], [address], 02/11/2025 13:44:40 02/11/20 25 02/10/2025 TYPE/ RH/SC REEN exp date 2024 23:59 Not Available [facility] (Lab) [address] , [place], [address], 02/11/2025 13:44:40 02/11/20 25 02/10/2025 HEMOG LOBIN A1C hemoglobin A1C 5.1 % 4.0-5. 6 The Ameri can Diabe um[employer] iatio n recom mends that a prima ry goal of thera py eulogioul d be a HBA1C of < 7% and that physi cians shoul d reeva luate the treat ment regim en in patie nts with HBA1C value s consi stent ly > 8%. <5.7% Vianey l 5.7 - 6.4% Incre ased risk for diabe umair >=6.5 % Diagn ostic of diabe umair <7.0% Goal of thera py >8.0% Actio n sugge sted Not Available [facility] (Lab) [address], [place], [address], 02/11/2025 13:44:40 02/11/20 25 02/10/2025 RPR SCREE N, REFLE X TITER /CONF IRMAT ION RPR qualitative Nonrea ctive nonrea ctive Not Available [facility] (Lab) [address], [place], [address], 02/11/2025 13:44:41 02/11/20 25 02/10/2025 drug scree n, urine Amphetamines : negati ve Not Available [facility] [address], [place], [address], 02/10/2025 12:55:20 02/11/20 25 02/10/2025 drug scree n, urine Cannabinoids : negati ve Not Available [facility] [address], [place], [address], 02/10/2025 12:55:20 02/11/20 25 02/10/2025 drug scree n, urine Cocaine: negati ve Not Available [facility] [address], [place], [address], 02/10/2025 12:55:20 02/11/20 25 02/10/2025 drug scree n, urine Opiates: negati ve Not Available [facility] [address], [place], [address], 02/10/2025 12:55:20 02/11/20 25 02/10/2025 drug scree n, urine Barbiturates : negati ve Not Available [facility] [address], [place], [address], 02/10/2025 12:55:20 02/11/20 25 02/10/2025 drug scree n, urine Benzodiazepi john: negati ve Not Available [facility] [address], [place], [address], 02/10/2025 12:55:20 03/10/20 25 03/10/2025 CULTU RE: URINE result report SEE RESULT S BELOW Test: Cultu re: Urine Speci men Sourc e: Urine Voide d Speci men Type: Urine Speci men Date: 2024 0938 Resul t Date: 20242 Resul t Statu s: Final resul t Abnor mal: No Resul ting Lab: [facility] [address] [facility] [address] Tel: CULTU RE ----- ----- ----- --- No growt h in 1 day (dete ction level of 10,00 0 colon ies / ml.) Not Available [facility] (Lab) [address], [place], [address], 03/11/2025 23:15:50 04/03/20 25 04/03/2025 CBC W/DIF F WBC 12.9 10'3/ uL 3.5-10 .5 high Not Available [facility] (Lab) [address], [place], [address], 04/04/2025 04:39:51 04/03/2004/03/2025 CBC W/DIF F RBC 4.33 10'6/ uL (based on docume nted legal sex) 3.80-5 .20 Not Available [facility] (Lab) [address], [place], [address], 04/04/2025 04:39:51 04/03/2004/03/2025 CBC W/DIF F HGB 13.2 g/dL (based on docume nted legal sex) 11.6-1 5.4 Not Available [facility] (Lab) [address], [place], [address], 04/04/2025 04:39:51 04/03/2004/03/2025 CBC W/DIF F HCT 40.2 % (based on docume nted legal sex) 34.0-4 5.0 Not Available [facility] (Lab) [address], [place], [address], 04/04/2025 04:39:51 04/03/2004/03/2025 CBC W/DIF F MCV 92.8 fL 80.0-9 9.0 Not Available [facility] (Lab) [address], [place], [address], 04/04/2025 04:39:51 04/03/2004/03/2025 CBC W/DIF F MCH 30.5 pg 27.0-3 4.0 Not Available [facility] (Lab) [address], [place], [address], 04/04/2025 04:39:51 04/03/2004/03/2025 CBC W/DIF F MCHC 32.8 g/dL 32.0-3 5.5 Not Available [facility] (Lab) [address], [place], [address], 04/04/2025 04:39:51 04/03/2004/03/2025 CBC W/DIF F RDW 13.0 % 11.0-1 5.0 Not Available [facility] (Lab) [address], [place], [address], 04/04/2025 04:39:51 04/03/2004/03/2025 CBC W/DIF F plt 131 10'3/ uL 150-40 0 low Not Available [facility] (Lab) [address], [place], [address], 04/04/2025 04:39:51 04/03/2004/03/2025 CBC W/DIF F MPV 13.9 fL 8.8-12 .1 high Not Available [facility] (Lab) [address], [place], [address], 04/04/2025 04:39:51 04/03/2004/03/2025 CBC W/DIF F NRBC's 0.0 % 0.0 Not Available [facility] (Lab) [address], [place], [address], 04/04/2025 04:39:51 04/03/2004/03/2025 CBC W/DIF F absolute NRBCs 0.0 10'3/ uL no refere nce range establ ished Not Available [facility] (Lab) [address], [place], [address], 04/04/2025 04:39:51 04/03/2004/03/2025 CBC W/DIF F neutrophils 76.6 % 34.0-7 3.0 high Not Available [facility] (Lab) [address] [place], [address], 04/04/2025 04:39:51 04/03/2004/03/2025 CBC W/DIF F lymphocytes 14.2 % 15.0-5 0.0 low Not Available [facility] (Lab) [address] [place], [address], 04/04/2025 04:39:51 04/03/2004/03/2025 CBC W/DIF F monocytes 7.6 % 1.0-15 .0 Not Available [facility] (Lab) [address], [place], [address], 04/04/2025 04:39:51 04/03/2004/03/2025 CBC W/DIF F eosinophils 0.7 % 0.0-8. 0 Not Available [facility] (Lab) [address], [place], [address], 04/04/2025 04:39:51 04/03/2004/03/2025 CBC W/DIF F basophils 0.4 % 0.0-2. 0 Not Available [facility] (Lab) [address], [place], [address], 04/04/2025 04:39:51 04/03/2004/03/2025 CBC W/DIF F immature granulocytes 0.5 % no define d refere nce range Immat ure Granu locyt es (IG) repre sents autom ated enume ratio n of Metam yeloc ytes, Myelo cytes and Promy elocy umair when IG is < 5%. Blast s are not inclu ded in IG and repor alfredo separ ately if prese nt. Not Available [facility] (Lab) [address], [place], [address], 04/04/2025 04:39:51 04/03/2004/03/2025 CBC W/DIF F absolute neutrophils 9.9 10'3/ uL 1.5-8. 0 high Not Available [facility] (Lab) [address], [place], [address], 04/04/2025 04:39:51 04/03/2004/03/2025 CBC W/DIF F absolute lymphocytes 1.8 10'3/ uL 1.0-4. 0 Not Available [facility] (Lab) [address], [place], [address], 04/04/2025 04:39:51 04/03/2004/03/2025 CBC W/DIF F absolute monocytes 1.0 10'3/ uL 0.2-1. 0 Not Available [facility] (Lab) [address], [place], [address], 04/04/2025 04:39:51 04/03/2004/03/2025 CBC W/DIF F absolute eosinophils 0.1 10'3/ uL 0.0-0. 6 Not Available [facility] (Lab) [address], [place], [address], 04/04/2025 04:39:51 04/03/2004/03/2025 CBC W/DIF F absolute basophils 0.1 10'3/ uL 0.0-0. 3 Not Available [facility] (Lab) [address], [place], [address], 04/04/2025 04:39:51 04/03/2004/03/2025 CBC W/DIF F absolute immature granulocytes 0.1 10'3/ uL 0.00-0 .10 Refer ence range s for nonbi nary/ inter sex or unspe cifie d gende r patie nts have not been estab lishe d. Pleas e refer to the [facility] wing table for range s estab lishe d for cisge nder patie nts and evalu ate in the clini randal kiera xt of the indiv idual patie nt: https ://misael calzada book. nm.or g/gen derx Not Available [facility] (Lab) [address], [place], [address], 04/04/2025 04:39:51 05/02/2005/02/2025 CULTU RE: URINE result report SEE RESULT S BELOW Test: Cultu re: Urine Speci men Sourc e: Urine - Clean Catch Speci men Type: Urine Speci men Date: 1502 Resul t Date: 0404 Resul t Statu s: Final resul t Abnor mal: No Resul ting Lab: [facility] [address] [facility] [address] Tel: CULTU RE ----- ----- ----- --- No growt h in 1 day (dete ction level of 10,00 0 colon ies / ml.) Not Available [facility] (Lab) [address], [place], [address], 05/04/2025 05:09:17 02/11/20 25 02/10/2025 US, obste tric, nucha l trans lucen cy No observ ation record ed. [facility] [address], [place], [address], 02/10/2025 18:38:42 02/11/20 25 02/10/2025 US, obste tric, follo w-up No observ ation record ed. [email or web address] [facility] [address], [place], [address], 02/13/2025 09:20:03 04/03/20 25 04/03/2025 US, obste tric, 2nd or 3rd trime ster No observ ation record ed. [email or web address] [facility] [address], [place], [address], 04/03/2025 18:43:20 04/03/20 25 04/03/2025 US, obste tric, 2nd or 3rd trime ster No observ ation record ed. [email or web address] [facility] [address], [place], [address], 04/05/2025 17:47:52 04/21/20 25 04/21/2025 non-s tress test No observ ation record ed. [email or web address] [address], [place], [address], 04/24/2025 12:03:28 05/02/20 25 05/02/2025 US, obste tric, follo w-up No observ ation record ed. [facility] [address], [place], [address], 05/02/2025 12:58:26 05/02/20 25 05/02/2025 US, obste tric, follo w-up No observ ation record ed. ROBERT [facility] [address], [place], [address], 05/03/2025 18:13:01 05/29/20 25 05/29/2025 non-s tress test No observ ation record ed. [address], [address], 05/31/2025 15:39:22 06/20/20 25 06/20/2025 imagi ng/di agnos tic resul t No observ ation record ed. [facility] [address] [place], [address], 06/20/2025 13:33:45 06/20/20 25 06/20/2025 US, obste tric, follo w-up No observ ation record ed. [email or web address] [facility] [address] [place], [address], 06/27/2025 17:32:46 07/03/20 25 07/03/2025 non-s tress test No observ ation record ed. [address] [facility], [place], [address], 07/19/2025 15:34:42 07/03/20 25 07/03/2025 imagi ng/di agnos tic resul t No observ ation record ed. [address] [facility] [place], [address], 07/03/2025 11:55:37 Result Notes None recorded. Problems Name Problem SNOMED Code Status Onset Date Resolution Date Notes Provider Name and Address Organization Details Recorded Time Anxiety 47310741 Active [address] [facility] 5 11:01:06 91504151 Active [address] [facility] 5 11:57:32 Platelet count below reference range 897148706 Active 2024 Referral faxed to [facility] 06/01 scheduled 06/20 0900 Level II us and consult Zoey Sukhdeep [facility] 5 11:50:53 Problem Notes None recorded. Procedures Surgical History Date Name Laterality Status Provider Name and Address Organization Details Recorded Time 5 Date of Last Pap Smear completed Kristen Ruffin [facility] 01/13/2025 11:01:13 7 operative procedure on wrist completed Aleah Bedolla [facility] 02/10/2025 11:57:07 Imaging Results None [...] Updated DateTime 05/02/2025 170.18 cm 25.8 kg/m2 05715.74 g 124/80 mm[Hg] Steph Lezama [facility] 05/02/2025 10:13:30 Social History Question Answer Notes LastModified by Organizat ion Details LastModified Time Tobacco Smoking Status Never Smoker Kristen sánchez, [facility] 01/13/2025 11:05:22 If You Are , What Was Your Level Of Alcohol Consumption Prior To ? Occasional [email or web address] Information not available 01/13/2025 Are You Blind Or Do You Have Difficulty Seeing? No [email or web address] Information n ot available 01/13/2025 What Is Your Level Of Caffeine Consumption? Occasional [email or web address] Information not available 01/13/2025 In The 14 Days Before Symptom Onset, Have You Had Close Contact With A Laboratory-confirm ed COVID-19 While That Case Was Ill? No Information n ot available 01/13/2025 In The 14 Days Before Symptom Onset, Have You Had Close Contact With A Person Who Is Under Investigation For COVID-19 While That Person Was Ill? No [email or web address] Information not available 01/13/2025 Have You Been To An Area Known To Be High Risk For COVID-19? No [email or web address] Information not available 01/13/2025 Are You Deaf Or Do You Have Serious Difficulty Hearing? No [email or web address] Information not available 01/13/2025 Do You Have Smoke And Carbon Monoxide Detectors In Your Home? Yes [email or web address] Information not available 01/13/2025 Do You Use Sunscreen Routinely? Yes [email or web address] Information not available 01/13/2025 Has Tobacco Cessation Counseling Been Provided? No [email or web address] Information not available 01/13/2025 Have You Used IV Drugs? No [email or web address] Information not available 01/13/2025 Do You Have Difficulty Walking Or Climbing Stairs? No [email or web address] Information not available 01/13/2025 Sex: Unknown Functional Status Question Answer Note LastModified by Organizat ion Details LastModified Time Do you use any illicit or recreational drugs? No [email or web address] Information not available 01/13/2025 Do you or have you ever used any other forms of tobacco or nicotine? Yes [email or web address] Information not available 01/13/2025 What is your level of alcohol consumption? None [email or web address] Information not available 01/13/2025 Are you able to walk independently without assistance or assistive devices? YESWOREST [email or web address] Information not available 01/13/2025 Are you able to care for yourself independently? Yes [email or web address] Information not available 01/13/2025 Do you have difficulty dressing, bathing, grooming, or toileting? No [email or web address] Information not available 01/13/2025 Do you or have you ever used e-cigarettes or vape? Former user of electronic cigarettes [email or web address] Information not available 01/13/2025 Mental Status None recorded. Family History Relationship Description Onset Age of this Age Resolved Age Notes LastModified by Organization Details LastModified Time Unspecified Relation Family history unknown [email or web address] Not available 2024 13:48:03 Paternal Grandfather Malignant neoplasm of prostate [email or web address] Not available 07/02 11:19:15 Maternal Grandfather Malignant neoplasm of lung [email or web address] Not available 01/13 11:03:40 Maternal Grandmother Malignant neoplasm of pancreas [email or web address] Not available 07/02 11:19:15 Maternal Aunt Malignant neoplasm of breast [email or web address] Not available 2024 13:48:03 Father Leukemia [email or web address] Not availa ble 07/24/2025 11:19:16 Mother Diabetes mellitus [email or web address] Not available 01/13 11:04:57 Medical History Condition [...] ICD10 Code Diagnosis IMO Codes Diagnosis Note [id number] JOLIE TOMLINSON MD [place] [address],[place] [address] 04/03/2025 14:40:22 04/03/2025 16:20:20 screening for malformation 121093400 Z36.3 Z3A.20 [id number] MD Jayjay [facility] [address],[place] [address] 04/03/2025 14:44:57 04/03/2025 16:37:32 Thrombocytopenic disorder 054583985 D69.6 52547 - plt 125 on new OB labs- repeat today Gestation period, 20 weeks [id number] Z3A.20 5938370 - continue PNV [id number] JOLIE TOMLINSON MD [facility] [address],[place] [address] 05/02/2025 09:18:09 05/02/2025 10:11:24 Follow-up encounter [id number] Z36.2 Z3A.24 [id number] JOLIE TOMLINSON MD [facility] [address],[place] [address] 05/02/2025 09:25:23 05/02/2025 10:55:47 Nausea and vomiting 44849652 R11.2 Second tri mester [id number] Z34.02 [id number] Health Concerns Section Related Observation LastModified by Organization Detai ls LastModified Time None Recorded Concern Status LastModified by Organization Details LastModified Time None Recorded Payers Encounter Date Sequence Insurance Name Policy Number Policy Marie Covered Member ID Marie Member ID Guarantor Name 05/02/2025 1 [employer]) [id number] Kya Angulo [id number] Kya Angulo 05/02/2025 2 [place]: [place] [employer] Gabby Jose [id number] Kya Angulo Notes Date Note Type Note Provider Name and Address Organization Details Recorded Time 05/02/2025 text/html Generic HPI TemplateReported by Patient JOLIE TOMLINSON MD [address], [place], [address], [place] [facility] 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 Problem Name Start Date End Date Resolution Snomed Code Not e Platelet count below reference range 06/01/2025 [id number] Referral fax ed to [facility] [...] Weight in lbs Pre/Post Dialysis Refused Weight 153.634220567014 BP Diastolic BP Location Tested BP Systolic BP Type 77 L arm 122 sitting Fetus Heart Rate Present A Present Fetus Movement Comments Patient presents to [facility] care. otherwise uncomplicated. No bleeding or [...] Weight in lbs Pre/Post Dialysis Refused Weight 156.395983038313 BP Diastolic BP Location Tested BP Systolic [...] Weight in lbs Pre/Post Dialysis Refused Weight 160.112658818608 BP Diastolic BP Location Tested BP Systolic [...] Weight in lbs Pre/Post Dialysis Refused Weight 165.059308437259 BP Diastolic BP Location Tested BP Systolic [...] Type Weight in lbs Pre/Post Dialysis Refused 176.854673404117 BP Diastolic BP Location Tested BP Systolic BP Type 78 L arm 118 sitting Fetus Heart Rate Present A 150 Fetus Movement A Yes Comments Had an episode of DFM yester day, went to [place] and had negative workup. No cramping or bleeding. GCT and labs today, will draw CBC as well. Discussed Tdap, RSV, and flu vaccines. RTC 2 weeks. Flowsheet Date 06/13/2025 [place] Score Blood Edema Fundus Height Fundus Units Glucose Ketones Leukocytes Nitrite Labor Signs Protein Cervic Dilation Cervic Effacement Cervic Station Type Weight in lbs Pre/Post Dialysis Refused 181.680682165008 BP Diastolic BP Location Tested BP Systolic [...] Weight in lbs Pre/Post Dialysis Refused Weight 178.344272579378 BP Diastolic BP Location Tested BP Systolic BP Type 78 L arm 112 sitting Fetus Heart Rate Present A 140 Fetus Movement A Yes Comments Good movement. No cram ping or bleeding. Saw MFM, recommend platelet counts every visit. Advertising Sales Consultant appointment next week to determine if autoimmune vs gestational. EFW 92%, AC 93%; discussed 39 week induction, plan for 12/15 PM. Preadmission scheduled. RSV vaccine discussed. RTC 2 weeks. Flowsheet Date 07/12/2025 Kirkland Score Blood Edema Fundus Height Fundus Units Glucose Ketones Leukocytes Nitrite Labor Signs Protein Cervic Dilation Cervic Effacement Cervic Station Type Weight in lbs Pre/Post Dialysis Refused Weight 185.634410044112 BP Diastolic BP Location Tested BP Systolic BP Type 78 L arm 120 sitting Fetus Heart Rate Present Fetus Movement A Yes Comments Platelet count down to 77, B 12 deficiency, started B12 injections. Will talk to [facility] about steroid timing. Also low iron, [...] Weight in lbs Pre/Post Dialysis Refused Weight 186.861204860832 BP Diastolic BP Location Tested BP Systolic [...]
--- OUTSIDE RECORDS SUMMARY | 2025-07-26 07:31 | XMS_ITS | Clinical Summary ---
Author Organization [facility] Address [address] [place] [address] Care Team Providers Care Grinding And Spraying Supervisor Name Role Phone Ale Cueva MD Primary Care Provider [phone] Ale Cueva MD Unavailable [phone] Source Comments [facility],non-owned Affiliates and Associated Physician Practices is amultiple site organization consisting of ambulatory clinics and hospital sitesin [place], [place], [place] and [place]. This disclosure is being madepursuant to the Care Everywhere program and may not contain all information available regarding this patient. Last updated 18.[facility] Allergies No known active allergies Medications * Be aware that medications may not be up to date on this document. Alwaysverify current medications with the patient. neomycin-polym yxin-hc (CORTISPORIN) [id number] otic suspensionIndi cations:Infect ious otitis externa, left 5 gtts to Left ear 3-4 times per day x 7-10 days 1 Bottle 0 6 Active tretinoin (RETIN-A) 0.05 % creamIndicatio ns:Acne vulgaris Pea sized amount to entire face at night.. 30 days supply. 45 g 3 8 Active clindamycin-be nzoyl peroxide (BENZACLIN) 1-5 % gelIndications :Acne vulgaris Apply to face once daily in the morning. 30 DS 50 g 3 8 Active doxycycline hyclate (VIBRAMYCIN) 100 MG tablet TAKE 1 TABLET BY MOUTH TWICE A DAY 60 tablet 5 8 Active Vit-DSS-Fe Fum-FA ( vitamin with iron) tablet Take 1 (one) tablet by mouth once daily Active ferrous sulfate 325 (65 FE) MG tablet Take 1 (one) tablet by mouth every 2 days 100 tablet 1 5 Active cyanocobalamin (Vitamin B-12) injectionIndic ations:quantit y per pharmacy Inject 1,000 (one thousand) mcg into muscle every 7 days (once a week) Reasons: quantity per pharmacy 10 mL 4 5 Active cyanocobalamin (Vitamin B-12) injection Inject 1,000 (one thousand) mcg into muscle every 30 days 10 mL 11 5 Active cyanocobalamin (Vitamin B-12) injectionIndic ations:monthly injection after finishing weekly injecitons x 4(sent earlier) Inject 1,000 (one thousand) mcg into muscle every 30 days Reasons: monthly injection after finishing weekly injecitons x 4(sent earlier) 10 mL 11 5 Active cyanocobalamin (Vitamin B-12) injectionIndic ations:monthly injection after finishing weekly injecitons x 4(sent earlier) Inject 1,000 (one thousand) mcg into muscle every 30 days Reasons: monthly injection after finishing weekly injecitons x 4(sent earlier) 10 mL 11 5 07/18/20 25 Discontinu ed(Reorder ) Active Problems Problem Noted Date Diagnosed Date Anxiety 07/07/2025 Bilateral carpal tunnel syndrome 07/07/2025 Depression 07/07/2025 IBS (irritable bowel syndrome) 07/07/2025 Localized swelling, mass and lump, right upper l imb 07/07/2025 07/07/2025 Acne vulgaris 02/04/2018 Post-inflammatory hyperpigmentation 02/04/2018 Estimated Date of Delivery Comme nts Yes 08/21/2025 Based on last me nstrual period of 11/14/2024 Encounters Date Type Department Care Team Description 07/26/2025 9:45 AM BLUE SPLIT TRIMMER Hospital Encounter [facility] M[facility] & Care [address] [place] [address] Odilon Oquendo MD 07/19/2025 7:28 AM BLUE SPLIT TRIMMER - 07/19/2025 11:59 PM BLUE SPLIT TRIMMER Hospital Encounter [facility] Care [address] [place] [address] Rubi Coyle MD Discharge Disposition: Home or Self Care 07/18/2025 Orders Only [facility] - Hematology/[facility] [address] [place] [phone] Lauren Cedeno MD 07/12/2025 12:31 PM BLUE SPLIT TRIMMER - 07/12/2025 11:59 PM BLUE SPLIT TRIMMER Hospital Encounter [facility] [address] [place] [address] Blanche Esparza MD Discharge Disposition: Home or Self Care 07/11/2025 Orders Only [facility] - Hematology/[facility] [address] [place] [phone] Lauren Cedeno MD 07/10/2025 Telephone [facility] [address] [place] [phone] Elise Odonnell RN Question (Zoey from Dr. Boswell's office called about patient calling their office regarding B12 injections and Iron infusions. Zoey questioning [facility] hematology note/recommendations. Unsure of what patient wants. ) 07/07/2025 9:00 AM BLUE SPLIT TRIMMER Office Visit [facility] - Hematology/[place] [address] [place] [phone] Lauren Cedeno MD B12 deficiency (Primary Dx); Acquired thrombocytopenia 07/07/2025 Travel 07/03/2025 Telephone [facility] [address] [place] [address] Nitza Marrero, KENYATTA Results 06/20/2025 8:45 AM CDT - 06/20/2025 11:59 PM CDT Hospital Encounter [facility] [address] [place] [address] Odilon Oquendo MD Discharge Disposition: Home or Self Care 06/20/2025 8:41 AM CDT - 06/20/2025 8:44 AM CDT Hospital Encounter [facility] [address] [place], [place] [phone] Odilon Oquendo MD Discharge Disposition: Home or Self Care from Last 3 Months Immunizations Immunization Administration Dates Next Due DTAP, HISTORIC VACCINE 02/23/2007,2002,02/08/2002,11/30,2001 HEP A PED/ADULT VACCINE 04/05/2013,01/16/2011 HEP B VACCINE 07/26/2002,2001,2001 HIB VACCINE 07/26/2002,2001,2001 Human Papilloma Virus Nineva lent Vaccine 08/03/2018,05/08/2016 MENINGOCOCCAL ACWY (MCV4P) VAC IM 04/05/2013 MENINGOCOCCAL ACWY MENVEO 08/03/2018 MMR VACCINE 02/23/2007,07/26/2002 POLIO,HISTORIC VACCINE 02/23/2007,2001,2001,10/07 Pneumococcal Pcv13 Conj 07/26/2002,02/08,2001,10/07 TDAP, HISTORIC VACCINE 04/05/2013 VARICELLA 02/23/2007,03/28/2003 Family History Medical History Relation Name Comments Cancer - Other Father 45 Relation Name Status Comments Brother 39 Alive Father 45 Maternal Grandfather Alive Maternal Grandmother Alive Mother 56 Alive Paternal Grandfather Alive Paternal Grandmother Alive Social History Tobacco Use Types Packs/Day Years Used Date Smoking Tobacco: Never Passive Smoke Exposure: Never Smokeless Tobacco: Never Tobacco Cessation:Counseling Given: No Alcohol Use Standard Drinks/Week Comments Not Currently [...] care, and heating? Not very hard 07/07/2025 [facility] Occupat ional Health - Occupational Stress [...] any time in the past [address] [facility], were you homeless or living in a alf (including now)? No 07/07/2025 Education Answer Date Recorded What is the highest level of school you have completed or the highest degree you have received? 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 Not on file Not on file Last Filed Vital Signs Vital Sign Reading Time Taken Comments Blood Pressure 120/71 07/07/2025 8:24 AM BLUE SPLIT TRIMMER Pulse 82 07/07/2025 8:24 AM BLUE SPLIT TRIMMER Temperature 37.1 C (98.8 F) 07/07/2025 8:24 AM BLUE SPLIT TRIMMER Respiratory Rate 12 07/07/2025 8:24 AM BLUE SPLIT TRIMMER Oxygen Saturation 95% 07/07/2025 8:24 AM BLUE SPLIT TRIMMER Inhaled Oxygen Concentration - - Weight 84.1 kg (185 lb 8 oz) 07/07/2025 8:24 AM BLUE SPLIT TRIMMER Height 172.7 cm (5' 8) 07/07/2025 8:24 AM BLUE SPLIT TRIMMER Body Mass Index 28.21 07/07/2025 8:24 AM BLUE SPLIT TRIMMER Plan of Treatment Upcoming Encounters Date Type Department Care Team (Late st Contact Info) Description 07/26/2025 9:00 AM BLUE SPLIT TRIMMER Appointment [facility] [address] [place] [phone] Odilon Oquendo MD [address] [phone] 07/26/2025 9:45 AM BLUE SPLIT TRIMMER Hospital Encounter [facility] [address] [place] [address] Odilon Oquendo MD [address] [phone] 08/02/2025 7:30 AM BLUE SPLIT TRIMMER Hospital Encounter [facility] [address] [place] [address] 08/03/2025 9:00 AM BLUE SPLIT TRIMMER Office Visit [facility] - Hematology/Oncology [address] [place] [phone] Lauren Cedeno MD [address] [place] [address] Health Maintenance Due Date Last Done Comments CHLAMYDIA/GONORRHEA SCREENING 2017 PAP SMEAR 2022 DTAP/TDAP/TD VACCINES (7 - Td or Tdap) 04/05/2023 04/05/2013, 02/23/2007, 03/28/2003, Additional history exists COVID-19 VACCINE ( - season) 2025 INFLUENZA VACCINE (#1) 2025 OB-ONE HOUR GLUCOSE 05/15/2025 OB-TDAP CURRENT 05/22/2025 04/05/2013 OB-RHOGAM INJECTION 05/29/2025 Respiratory Syncytial Virus (RSV) Vaccine Pt: or over 60 yrs (1 - Risk 1-dose series) 06/26/2025 OB-GROUP B STREP SCREEN 07/17/2025 ZOSTER VACCINE (1 of 2) 2051 HEPATITIS B VACCINE Completed 07/26/2002, 2001, 2001 HIB VACCINE Completed 07/26/2002, 10/2001, 2001 PNEUMOCOCCAL VACCINE Completed 07/26/2002, 02/08/2002, 2001, Additional history exists HPV VACCINE Completed 08/03/2018, 05/08/2016 MENINGOCOCCAL GROUPS A/C/Y/W VACCINE Completed 08/03/2018, 04/05/2013 HIV SCREENING Completed 05/30/2025 DEPRESSION SCREENING Completed 07/07/2025 HEPATITIS C SCREENING Completed 07/07/2025 MENINGOCOCCAL (Group B) VACCINE SHARED DECISION-MAKING Aged Out No longer eligible based on patient's age to complete this topic Procedures Procedure Name Priority Date/Time Associated Diagnosis Comments CBC W AUTO DIFFERENTIAL Routine 07/07/2025 10:07 AM BLUE SPLIT TRIMMER Acquired thrombocytopenia COMPREHENSIVE METABOLIC PANEL Routine 07/07/2025 10:07 AM BLUE SPLIT TRIMMER Acquired thrombocytopenia HEPATITIS B SURFACE ANTIBODY Routine 07/07/2025 10:07 AM BLUE SPLIT TRIMMER Acquired thrombocytopenia HEPATITIS B CORE ANTIBODY IGM Routine 07/07/2025 10:07 AM BLUE SPLIT TRIMMER Acquired thrombocytopenia HEPATITIS C AB W/RFLX TO HCV RNA QN PCR Routine 07/07/2025 10:07 AM BLUE SPLIT TRIMMER Acquired thrombocytopenia FOLATE Routine 07/07/2025 10:07 AM BLUE SPLIT TRIMMER Acquired thrombocytopenia VITAMIN B12 Routine 07/07/2025 10:07 AM BLUE SPLIT TRIMMER Acquired thrombocytopenia FERRITIN Routine 07/07/2025 10:07 AM BLUE SPLIT TRIMMER Acquired thrombocytopenia HEPATITIS B CORE ANTIBODY TOTAL Routine 07/07/2025 10:04 AM BLUE SPLIT TRIMMER Acquired thrombocytopenia SONOGRAM - COMPLETE Routine 06/20/2025 8 :49 AM CDT Thrombocytopenia affecting , antepartum (HCC) 31 weeks gestation of (HCC) Encounter for anatomic survey (HCC) Encounter for ultrasound to assess growth (HCC) from Last 3 Months Results * HEPATITIS C AB W/RFLX TO HCV RNA QN PCR (07/07/2025 10:07 AM BLUE SPLIT TRIMMER) Hepatitis C Antibody NON-REACTI VE NON-REACT KAUSHIK [facility] Comment: HCV antibody was non-reactive. There is no laboratory evidence of HCV infection. In most cases, no further action is required. However, if recent HCV exposure is suspected, a test for HCV RNA (test code 83983) is suggested. For additional information please refer to http://education.Topio.Berry Kitchen/faq/MMU47o6 (This link is being provided for informational/ educational purposes only.) Test Performed at: [facility] [address] [place] [address] BELTRAN LARIOS MD Blood BLOOD SPECIMEN / Unknown 07/07/2025 10:07 AM BLUE SPLIT TRIMMER 07/07/2025 10:08 AM BLUE SPLIT TRIMMER us Lauren Cedeno MD LAB - CHEMISTRY ORDERABLES F inal Result [facility] [address] [place] [address] * (ABNORMAL) CBC WITH DIFFERENTIAL (07/07/2025 10:07 AM BLUE SPLIT TRIMMER) White Blood Cell Count 10.5 3.8 - 10.8 Thousand/u L [facility] RBC 3.91 3.80 - 5.10 Million/uL [facility] Hemoglobin 12.0 11.7 - 15.5 g/dL [facility] Hematocrit 36.8 35.0 - 45.0 % [facility] MCV 94.1 80.0 - 100.0 fL [facility] MCH 30.7 27.0 - 33.0 pg [facility] MCHC 32.6 32.0 - 36.0 g/dL [facility] Comment: For adults, a slight decrease in the calculated MCHC value (in the range of 30 to 32 g/dL) is most likely not clinically significant; however, it should be interpreted with caution in correlation with other red cell parameters and the patient's clinical condition. RDW 12.6 11.0 - 15.0 % [facility] Platelet Count 77(L) 140 - 400 Thousand/u L [facility] MPV 12.7(H) 7.5 - 12.5 fL [facility] Neutrophil Absolute 8337(H) 1500 - 7800 cells/uL [facility] Lymphocytes Absolute 1166 850 - 3900 cells/uL [facility] Absolute Monocytes 840 200 - 950 cells/uL [facility] Eosinophils Absolute 116 15 - 500 cells/uL [facility] Basophils Absolute 42 0 - 200 cells/uL [facility] Granulocytes % 79.4 % [facility] Lymphocytes % 11.1 % [facility] Monocytes % 8.0 % [facility] Eosinophils % 1.1 % [facility] Basophils % 0.4 % [facility] Comment: Test Performed at: [facility] [address] [place] [address] BELTRAN LARIOS MD Blood BLOOD SPECIMEN / Unknown 07/07/2025 10:07 AM BLUE SPLIT TRIMMER 07/07/2025 10:08 AM BLUE SPLIT TRIMMER Lauren Cedeno MD LAB - HEMATOLOGY ORDERABLES Final Result [facility] [address] [place] [address] * (ABNORMAL) COMPREHENSIVE METABOLIC PANEL (07/07/2025 10:07 AM BLUE SPLIT TRIMMER) Pathologist [facility] Glucose 72 65 - 99 mg/dL [facility] Comment: Fasting reference interval BUN 5(L) 7 - 25 mg/dL [facility] Creatinine 0.55 0.50 - 0.96 mg/dL [facility] eGFR by Cystatin C 132 > OR = 60 mL/min/1.7 3m2 [facility] BUN/Creatinine Ratio 9 6 - 22 (calc) [facility] Sodium 138 135 - 146 mmol/L [facility] Potassium 3.7 3.5 - 5.3 mmol/L [facility] Chloride 106 98 - 110 mmol/L [facility] CO2 23 20 - 32 mmol/L [facility] Calcium 8.4(L) 8.6 - 10.2 mg/dL [facility] Protein Total 5.6(L) 6.1 - 8.1 g/dL [facility] Albumin 3.3(L) 3.6 - 5.1 g/dL [facility] Globulin Total 2.3 1.9 - 3.7 g/dL (calc) [facility] Albumin/Globulin Ratio 1.4 1.0 - 2.5 (calc) [facility] Bilirubin Total 0.4 0.2 - 1.2 mg/dL [facility] Alkaline Phosphatase 86 31 - 125 U/L [facility] AST 23 10 - 30 U/L [facility] ALT 13 6 - 29 U/L [facility] Comment: Test Performed at: [place] [address] BELTRAN LARIOS MD Blood BLOOD SPECIMEN / Unknown 07/07/2025 10:07 AM BLUE SPLIT TRIMMER 07/07/2025 10:08 AM BLUE SPLIT TRIMMER Lauren Cedeno MD LAB - CHEMISTRY ORDERABLES F inal Result [facility] [address] [place] [address] * HEPATITIS B SURFACE ANTIBODY (07/07/2025 10:07 AM BLUE SPLIT TRIMMER) Hepatitis B Virus Surface Antibody NON-REACTI VE NON-REACT KAUSHIK [facility] Comment: Test Performed at: [place] [address] BELTRAN LARIOS MD Blood BLOOD SPECIMEN / Unknown 07/07/2025 10:07 AM BLUE SPLIT TRIMMER 07/07/2025 10:08 AM BLUE SPLIT TRIMMER Lauren Cedeno MD LAB - CHEMISTRY ORDERABLES F inal Result Performing Organization Address [facility] de Phone Number [address] [address] * FOLATE (07/07/2025 10:07 AM BLUE SPLIT TRIMMER) [facility] Folate 20.4 ng/mL [facility] Comment: Reference Range Low: <3.4 Borderline: 3.4-5.4 Normal: >5.4 Test Performed at: [facility] [address] BELTRAN LARIOS MD Blood BLOOD SPECIMEN / Unknown 07/07/2025 10:07 AM BLUE SPLIT TRIMMER 07/07/2025 10:08 AM BLUE SPLIT TRIMMER Lauren Cedeno MD LAB - CHEMISTRY ORDERABLES F inal Result Performing Organization Address [facility] de Phone Number [address] [address] * (ABNORMAL) VITAMIN B12 (07/07/2025 10:07 AM BLUE SPLIT TRIMMER) [facility] Vitamin B12 158(L) 200 - 1100 pg/mL [facility] Comment: Test Performed at: [facility] [place] [address] BELTRAN LARIOS MD Blood BLOOD SPECIMEN / Unknown 07/07/2025 10:07 AM BLUE SPLIT TRIMMER 07/07/2025 10:08 AM BLUE SPLIT TRIMMER Lauren Cedeno MD LAB - CHEMISTRY ORDERABLES F inal Result Performing Organization Address [facility] de Phone Number [address] [address] * HEPATITIS B CORE ANTIBODY IGM (07/07/2025 10:07 AM BLUE SPLIT TRIMMER) [facility] Hepatitis B Core Virus Antibody IgM NON-REACTI VE NON-REACT KAUSHIK [facility] Comment: For additional information, please refer to http://education.Qikwell Technologies/faq/PEP085 (This link is being provided for informational/ educational purposes only.) Test Performed at: [facility] [place] [address] BELTRAN LARIOS MD Blood BLOOD SPECIMEN / Unknown 07/07/2025 10:07 AM BLUE SPLIT TRIMMER 07/07/2025 10:08 AM BLUE SPLIT TRIMMER Lauren Cedeno MD LAB - CHEMISTRY ORDERABLES F inal Result Performing Organization Address [facility] Co de Phone Number [facility] [phone] [place] [address] * (ABNORMAL) FERRITIN (07/07/2025 10:07 AM BLUE SPLIT TRIMMER) Pathologist [facility] Ferritin 6(L) 16 - 154 ng/mL [facility] Comment: Test Performed at: [facility] [place] [address] BELTRAN LARIOS MD Blood BLOOD SPECIMEN / Unknown 07/07/2025 10:07 AM BLUE SPLIT TRIMMER 07/07/2025 10:08 AM BLUE SPLIT TRIMMER Result [facility] Lauren Cedeno MD LAB - CHEMISTRY ORDERABLES F inal Result Performing Organization Address [facility] de Phone Number [facility] [phone] [place] [address] * HEPATITIS B CORE ANTIBODY TOTAL (07/07/2025 10:04 AM BLUE SPLIT TRIMMER) [facility] Hepatitis B Core Virus Antibody Total NON-REACTI VE NON-REACT KAUSHIK [facility] Comment: For additional information, please refer to http://education.Topio.Berry Kitchen/faq/QGD734 (This link is being provided for informational/ educational purposes only.) Test Performed at: [facility] [place] [address] BELTRAN LARIOS MD Blood BLOOD SPECIMEN / Unknown 07/07/2025 10:04 AM BLUE SPLIT TRIMMER 07/07/2025 10:08 AM BLUE SPLIT TRIMMER Lauren Cedeno MD LAB - CHEMISTRY ORDERABLES F inal Result Performing Organization Address [facility] Co de Phone Number [facility] [phone] [place] [address] * Sonogram - Complete (06/20/2025 8:49 AM CDT) Linked Results Indication ======== anatomy evaluation Thrombocytopenia, unspecified History ====== OB History 1. Para 0 [id number] Lab Tests Test Date Result NIPT Low risk, Male Maternal Assessment Physical Exam Height 170 cm, 5 ft 7 in. Weight 81 kg, 178 lb. Initial weight 68 kg, 149 lb. BMI 27.88 kg/m . Initial BMI 23.34 kg/m . Weight gain 13 kg, 29 lb Method ====== Transabdominal ultrasound. View: Good view ========= Arriaga . Number of fetuses: 1 Dating ====== Date Details Gest. age CLARENCE LMP 11/14/2024 31 w + 1 d 08/21/2025 Previous U/S 01/13/2025 GA, GA 8 w + 3 d 31 w + 0 d 08/22/2025 U/S 06/20/2025 based upon AC, BPD, Femur, HC 34 w + 0 d 08/01/2025 Assigned dating based on the LMP, selected on 06/20/2025 31 w + 1 d 08/21/2025 General Evaluation Cardiac activity present. FHR 157 bpm. Presentation: cephalic Placenta: Placental site: anterior Umbilical cord: Cord vessels: 3 vessel cord. Insertion site: normal insertion Amniotic fluid: Amount of AF: normal. MVP 4.9 cm. BLANK 17.9 cm. Q1 4.9 cm, Q2 4.3 cm, Q3 4.4 cm, Q4 4.2 cm Biometry BPD 87.7 mm 35w 3d >99% Hadlock HC 318.4 mm 35w 6d >99% Hadlock Cerebellum tr 38.2 mm 30% [place] AC 291.0 mm 33w 1d 93% Hadlock Femur 60.5 mm 31w 3d 45% Hadlock Humerus 55.3 mm 32w 1d 80% Patrick HC / AC 1.09 -/- Hadlock Weight Calculation: EFW 2,118 g 92% Hadlock EFW (lb,oz) 4 lb 11 oz EFW by Hadlock ([id number]) accelerated Growth Overview Exam date GA BPD (mm) HC (mm) AC (mm) FL (mm) HL (mm) EFW (g) 06/20/2025 31w 1d 87.7 >99% 318.4 >99% 291 93% 60.5 45% 55.3 80% 2118 92% Anatomy The following structures appear normal: Head / Neck Cranium. Lateral ventricles. Choroid plexus. Midline falx. Cavum septi pellucidi. Cerebellum. Cisterna magna. Thalami. Face Lips. Profile. Nose. Nasal bone. Orbits. Heart / Thorax 4-chamber view. RVOT view. LVOT view. 3-vessel view. 2-epakag-rvxbvqi view. Situs. Aortic arch view. Bicaval view. Ductal arch view. Interventricular septum. Great vessels. Right lung. Left lung. Diaphragm. Abdomen Cord insertion. Stomach. Kidneys. Bladder. Bowel. Genitals. Spine Cervical spine. Thoracic spine. Lumbar spine. Sacral spine. Extremities / Skeleton Arms. Hands. Legs. Feet. sex: male. Maternal Structures Right Ovary Not visualized Appearance: Adnexa appears normal Left Ovary Not visualized Appearance: Adnexa appears normal Impression ========= * Arriaga IUP at 31 weeks of gestation by stated EDC from LMP & early U/S * Referred to [facility] for obstetrical U/S & request for consult secondary to: Maternal thrombocytopenia * Today's ultrasound (U/S) findings: Living arriaga intrauterine fetus growth is trending large for gestational age (LGA) Amniotic fluid volume (AFV) is subjectively normal range Placenta is anterior & clear of the internal cervical os Comprehensive anatomic survey appears normal, but suboptimal d/t EGA PAST MEDICAL & OBSTETRICAL HISTORY * Medications: vitamins, Zofran up to 20 weeks * Past Medical History: No CHTN, no DM, no thyroidopathy, no asthma, no VTE, no SLE Thrombocytopenia Dec-2018 PLT = 213 per pt report Oct-2023 PLT = 141 per pt report, mononucleosis Aug-Jan-2025 PLT = 117, 125 Mar-2025 PLT = 131 May-2025 PLT = 113 growth LGA She reports her birthweight was 9#11oz She reports her mother was not screened for GDM, but later developed T2DM 05/30/2025 1-hr GCT 82 mg/dL * Past Surgical History: ganglion cyst RT wrist * Past Gynecologic History: no conization, no LEEP, no D&C * Past Obstetrical History: G1: Current Negative HBV, HCV, HIV, RPR cf-DNA was low-risk & limited carrier screen negative * Family history of anomalies, syndromes or developmental delay: none known * Social History: Denies ethanol, tobacco, drugs * Review of Systems: no vaginal bleeding, no epistaxis, no bruising * Physical Examination: BP = 120/75 mmHg, Pulse = 107 bpm, Weight = 178 pounds * Lab urine test strip today: glucose -, ketones -, protein -, blood -, leukocytes - COUNSELING & RECOMMENDATIONS * Mild thrombocytopenia during is usually due to gestational thrombocytopenia, which is generally benign. It appears that she had thrombocytopenia during the course of mononucleosis in early 2023. We do not have any subsequent platelet counts prior to this , so we do not know whether she platelets normalized prior to . For this reason I am recommending that we send her to Hematology for further assessment in the event she has an infectious or immune cause of thrombocytopenia. At present I do not think it would be likely that the baby is at risk for significant thrombocytopenia, but that needs to be addressed as well. I would recommend checking a platelet count at each visit, approximately every one to two weeks. At this point I see no reason to recommend starting nonstress tests, but I would recommend a follow-up MFM consult and U/S to assess growth at 36 weeks. Consult with Anesthesiology at the planned delivery hospital during the third trimester would be recommended so they can discuss their approach to managing anesthesia/analgesi a with thrombocytopenia. Please also notify the baby's Financial Solutions Advisor of this history. COMMENTS * Thank you very much for requesting [facility] participation in her obstetrical care * Findings were explained & questions were addressed & precautions were given to patient * U/S does not detect all structural, genetic & functional gdonjphr-fqyqh-eitp ental abnormalities * Telemedicine services were performed for this U/S examination & MFM consultation Patient's identity was confirmed at the [facility] office Appropriateness of the telehealth consult was confirmed Informed consent for telemedicine services was obtained & scanned into EMR Modality was secure interactive audio-video session using [employer] Patient site location was [facility] & nurse presenter was Elizabeth Odonnell Distant site provider was Odilon Oquendo MD & location was home office New consult = 45 minutes total, including record review & counseling & coordination of care GENERAL NOTES REGARDING CLINICAL CONDITIONS * Thrombocytopenia in Normal platelet (PLT) count: Non = 165-415 K/uL, >= 150 K/uL Differential diagnosis of thrombocytopenia in includes: Spurious: due to EDTA-induced platelet aggregation Gestational thrombocytopenia Preeclampsia (HELLP syndrome) Primary immune thrombocytopenia (ITP) Secondary immune thrombocytopenia Systemic lupus erythematosus (SLE) Antiphospholipid syndrome (APLS) Infectious (HIV, HCV, CMV, Helicobacter pylori) Drug-induced (heparins, antimicrobials, anticonvulsants) Associated with systemic conditions Disseminated intravascular coagulation (DIC) Thrombotic thrombocytopenic purpura (TTP) Hemolytic uremic syndrome (HUS) Acute fatty liver of (AFLP) Inherited conditions: Von Willebrand disease type 2B Bone marrow disorders, Nutritional deficiencies, Hypersplenism Congenital platelet disorders Regarding gestational thrombocytopenia: Also called incidental thrombocytopenia of Constitutes 80% of cases of thrombocytopenia in Incidence is estimated to be 5-11% of women Pathogenesis of gestational thrombocytopenia is uncertain May be due to hemodilution & enhanced clearance Characteristics of gestational thrombocytopenia include: Onset can occur any time in (usually second half) Most cases having a platelet count > 75 K/uL Cases have been described with PLT as low as 43 K/uL Generally are asymptomatic with no history of bleeding Have no history of thrombocytopenia outside of PLT counts usually normalize within 1 to 2 months May recur in subsequent pregnancies Risk of or thrombocytopenia is low There are no specific laboratory tests to confirm diagnosis Diagnosis of gestational thrombocytopenia is one of exclusion References cited in this section: The 2019 ACOG Practice Bulletin #207 Thrombocytopenia in The 2020 SOAP ...Neuraxial Procedures in Obstetric Patients With Thrombocytopenia Follow-up ======== at 36 weeks Coding ====== Diagnoses D69.6: Thrombocytopenia, Unspecified Z36.3: Encounter for screening for malformations Procedures 80023: [place] [facility]reg [facility]ter[facility] Anatomical Region Laterality Modality Other 06/20/2025 8:49 AM CDT R Mehul Steele MD [facility] ORDERABLES Edited Result - Final from Last 3 Months Insurance [employer]TON[facility] [place] [address] [place] [address] [place] [address] [place] [address] ANTHEM ANTHEM ANTHEM ANTHEM ANTHEM ANTHEM * Guarantor: GABBY SARMIENTO Account Type Relation to Patient Date of Phone Billing Address Personal/Family Other Care Teams [employer]inding [employer] 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
--- OUTSIDE RECORDS SUMMARY | 2025-07-26 07:31 | XMS_ITS | Continuity of Care Document ---
Author Organization [facility] Address [address] [place] [address] [place] [address] Care Team Providers Care Booker Name Role Phone SHERYL DICKSON Primary Care Provider Assessment No assessment recorded. Plan of Treatment Reminders Order Date Submit Date Provider Last Modified By Organization Details Last Modified Time Details Appointments OB ROUTINE 2024 02:45P Cosmo TOMLINSON MD Not available Not available Not available INDUCTION 2024 04:00P Cosmo TOMLINSON MD Not available Not available Not available Lab CBC w/ auto diff 2024 025 [facility] (Lab), [address], [place], [address], 2025 04:12:09 Referral None recorded. Procedures None recorded. Surgeries None recorded. Imaging None recorded. Medication Orders None recorded. Patient TargetsNo targets recorded. Patient InstructionsNo instructions recorded. Reason for Referral None Reported. Results Created Date Observation Date Name Description Value Unit Range Abnormal Flag Note LastModifiedBy Organization Detail LastModifiedTime 02/17/2002/16/2025 [UNIT Y] ANEUP LOIDY NIPT fraction 15.3% normal Not Available [facility] [address], [place], [address], 02/16/2025 19:59:32 02/17/20 25 02/16/2025 [UNIT Y] ANEUP LOIDY NIPT 22Q11.2 microdeletio n LOW RISK <1 in 10,000 normal Not Available [facility] [address], [place], [address], 02/16/2025 19:59:32 02/17/20 25 02/16/2025 [UNIT Y] ANEUP LOIDY NIPT sex chromosome aneuploidy NOT DETECT ED normal Not Available [facility] [address], [place], [address], 02/16/2025 19:59:32 02/17/20 25 02/16/2025 [UNIT Y] ANEUP LOIDY NIPT monosomy X LOW RISK <1 in 10,000 normal Not Available [facility] [address], [place], [address], 02/16/2025 19:59:32 02/17/20 25 02/16/2025 [UNIT Y] ANEUP LOIDY NIPT trisomy 13 LOW RISK <1 in 10,000 normal Not Available [facility] [address], [place], [address], 02/16/2025 19:59:32 02/17/20 25 02/16/2025 [UNIT Y] ANEUP LOIDY NIPT trisomy 18 LOW RISK <1 in 10,000 normal Not Available [facility] [address], [place], [address], 02/16/2025 19:59:32 02/17/20 25 02/16/2025 [UNIT Y] ANEUP LOIDY NIPT trisomy 21 LOW RISK <1 in 10,000 normal Not Available [facility] [address], [place], [address], 02/16/2025 19:59:32 02/17/20 25 02/16/2025 [UNIT Y] ANEUP LOIDY NIPT sex MALE normal Not Available [facility] [address], [place], [address], 02/16/2025 19:59:32 02/17/20 25 02/16/2025 [UNIT Y] ANEUP LOIDY NIPT gestation SINGLE TON normal Not Available [facility] [address], [place], [address], 02/16/2025 19:59:32 02/17/20 25 02/16/2025 [UNIT Y] ANEUP LOIDY NIPT for detailed report, see pdf See PDF normal Not Available [facility] [address], [place], [address], 02/16/2025 19:59:32 02/22/20 25 02/21/2025 [UNIT Y] FLETCHER Rose sickle cell disease/beta -thalassemia /hemoglobino pathies carrier screen NEGATI VE normal Not Available [facility] [address], [place], [address], 02/21/2025 14:09:41 02/22/20 25 02/21/2025 [UNIT Y] FLETCHER Rose alpha-thalas semia carrier screen NEGATI VE normal Not Available [facility] [address], [place], [address], 02/21/2025 14:09:41 02/22/20 25 02/21/2025 [UNIT Y] FLETCHER Rose cystic fibrosis carrier screen NEGATI VE normal Not Available [facility] [address], [place], [address], 02/21/2025 14:09:41 02/22/20 25 02/21/2025 [UNIT Y] FLETCHER Rose spinal muscular atrophy carrier screen NEGATI VE 2 SMN1 copies , SNP not presen t normal Not Available [facility] [address], [place], [address], 02/21/2025 14:09:41 02/22/20 25 02/21/2025 [UNIT Y] FLETCHER Rose for detailed report, see pdf See PDF normal Not Available [facility] [address], [place], [address], 02/21/2025 14:09:41 02/11/20 25 02/10/2025 CT/GC AND TRICH OMONA S VAGIN KARLO (RRNA ), URINE chlamydia trachomatis, PCR Negati ve negati ve Not Available [facility] (Lab) [address], [place], [address], 02/11/2025 12:05:33 02/11/20 25 02/10/2025 CT/GC AND TRICH OMONA S VAGIN KARLO (RRNA ), URINE neisseria gonorrhoeae, PCR Negati ve negati ve Not Available [facility] (Lab) [address], [place], [address], 02/11/2025 12:05:33 02/11/20 25 02/10/2025 CT/GC AND TRICH OMONA S VAGIN KARLO (RRNA ), URINE trichomonas vaginalis ribosomal RNA (rrna) Negati ve negati ve Not Available [facility] (Lab) [address], [place], [address], 02/11/2025 12:05:33 02/11/20 25 02/10/2025 CBC W/DIF F WBC 8.7 10'3/ uL 3.5-10 .5 Not Available [facility] (Lab) [address], [place], [address], 02/11/2025 13:44:37 02/11/20 25 02/10/2025 CBC W/DIF F RBC 4.55 10'6/ uL (based on docume nted legal sex) 3.80-5 .20 Not Available [facility] (Lab) [address] [place], [address], 02/11/2025 13:44:37 02/11/20 25 02/10/2025 CBC W/DIF F HGB 13.7 g/dL (based on docume nted legal sex) 11.6-1 5.4 Not Available [facility] (Lab) [address], [place], [address], 02/11/2025 13:44:37 02/11/20 25 02/10/2025 CBC W/DIF F HCT 40.8 % (based on docume nted legal sex) 34.0-4 5.0 Not Available [facility] (Lab) [address], [place], [address], 02/11/2025 13:44:37 02/11/20 25 02/10/2025 CBC W/DIF F MCV 89.7 fL 80.0-9 9.0 Not Available [facility] (Lab) [address], [place], [address], 02/11/2025 13:44:37 02/11/20 25 02/10/2025 CBC W/DIF F MCH 30.1 pg 27.0-3 4.0 Not Available [facility] (Lab) [address], [place], [address], 02/11/2025 13:44:37 02/11/20 25 02/10/2025 CBC W/DIF F MCHC 33.6 g/dL 32.0-3 5.5 Not Available [facility] (Lab) [address], [place], [address], 02/11/2025 13:44:37 02/11/20 25 02/10/2025 CBC W/DIF F RDW 12.8 % 11.0-1 5.0 Not Available [facility] (Lab) [address], [place], [address], 02/11/2025 13:44:37 02/11/20 25 02/10/2025 CBC W/DIF F plt 125 10'3/ uL 150-40 0 low Not Available [facility] (Lab) [address], [place], [address], 02/11/2025 13:44:37 02/11/20 25 02/10/2025 CBC W/DIF F MPV 13.5 fL 8.8-12 .1 high Not Available [facility] (Lab) [address], [place], [address], 02/11/2025 13:44:37 02/11/20 25 02/10/2025 CBC W/DIF F NRBC's 0.0 % 0.0 Not Available [facility] (Lab) [address], [place], [address], 02/11/2025 13:44:37 02/11/20 25 02/10/2025 CBC W/DIF F absolute NRBCs 0.0 10'3/ uL no refere nce range establ ished Not Available [facility] (Lab) [address], [place], [address], 02/11/2025 13:44:37 02/11/20 25 02/10/2025 CBC W/DIF F neutrophils 76.5 % 34.0-7 3.0 high Not Available [facility] (Lab) [address], [place], [address], 02/11/2025 13:44:37 02/11/20 25 02/10/2025 CBC W/DIF F lymphocytes 14.4 % 15.0-5 0.0 low Not Available [facility] (Lab) [address], [place], [address], 02/11/2025 13:44:37 02/11/20 25 02/10/2025 CBC W/DIF F monocytes 8.3 % 1.0-15 .0 Not Available [facility] (Lab) [address], [place], [address], 02/11/2025 13:44:37 02/11/20 25 02/10/2025 CBC W/DIF F eosinophils 0.3 % 0.0-8. 0 Not Available [facility] (Lab) [address] [place], [address], 02/11/2025 13:44:37 02/11/20 25 02/10/2025 CBC W/DIF F basophils 0.3 % 0.0-2. 0 Not Available [facility] (Lab) [address], [place], [address], 02/11/2025 13:44:37 02/11/20 25 02/10/2025 CBC W/DIF [...] separ ately if prese nt. Not Available [facility] (Lab) [address], [place], [address], 02/11/2025 13:44:37 02/11/20 25 02/10/2025 CBC W/DIF F absolute neutrophils 6.6 10'3/ uL 1.5-8. 0 Not Available [facility] (Lab) [address], [place], [address], 02/11/2025 13:44:37 02/11/20 25 02/10/2025 CBC W/DIF F absolute lymphocytes 1.3 10'3/ uL 1.0-4. 0 Not Available [facility] (Lab) [address], [place], [address], 02/11/2025 13:44:37 02/11/20 25 02/10/2025 CBC W/DIF F absolute monocytes 0.7 10'3/ uL 0.2-1. 0 Not Available [facility] (Lab) [address], [place], [address], 02/11/2025 13:44:37 02/11/20 25 02/10/2025 CBC W/DIF F absolute eosinophils 0.0 10'3/ uL 0.0-0. 6 Not Available [facility] (Lab) [address], [place], [address], 02/11/2025 13:44:37 02/11/20 25 02/10/2025 CBC W/DIF F absolute basophils 0.0 10'3/ uL 0.0-0. 3 Not Available [facility] (Lab) [address], [place], [address], 02/11/2025 13:44:37 02/11/20 25 02/10/2025 CBC W/DIF F absolute immature granulocytes 0.0 10'3/ uL 0.00-0 .10 Refer ence range s for nonbi nary/ inter sex or unspe cifie d gende r patie nts have not been estab lishe d. Casey e [facility] for range s estab lishe d for cisge nder patie nts and evalu ate in the clini randal kiera xt of the indiv idual patie nt: https ://la and book. nm.or g/gen derx Not Available [facility] (Lab) [address], [place], [address], 02/11/2025 13:44:37 02/11/20 25 02/10/2025 HIV 1/2 ANTIG EN/AN TIBOD Y, REFLE X CONFI RMATI ON HIV antigen/anti body Nonrea ctive nonrea ctive HIV-1 antig en and HIV-1 /HIV- 2 antib odies were not detec alfredo. No labor atory evide nce of HIV infec tion. Not Available [facility] (Lab) [address] , [place], [address], 02/11/2025 13:44:38 02/11/2002/10/2025 HEPAT ITIS B SURFA CE ANTIG EN hepatitis B surface antigen Non-re active non-re active This assay was perfo rmed using [employer] ratio n reage nts and test kits. Value s obtai evelyn with other assay metho ds or kits canno t be used inter collins eably . Not Available [facility] (Lab) [address] , [place], [address], 02/11/2025 13:44:38 02/11/20 25 02/10/2025 HEPAT ITIS C ANTIB TIM SCREE N, REFLE X TO CONFI RMATI ON hepatitis C antibody Non-re active non-re active Antib odies to HCV Not Detec alfredo, does not exclu de the possi bilit y of expos ure to HCV. Not Available [facility] (Lab) [address], [place], [address], 02/11/2025 13:44:39 02/11/20 25 02/10/2025 RUBEL LA IGG ANTIB TIM, QUANT rubella antibodies, IgG Reacti ve reacti ve Not Available [facility] (Lab) [address], [place], [address], 02/11/2025 13:44:39 02/11/20 25 02/10/2025 RUBEL LA IGG ANTIB TIM, QUANT rubella antibodies, IgG quant 47.1 IU/mL >=10 Non-r eacti ve (Non- Immun e) <10 IU/mL React kvng (Immu ne) > or = 10 IU/mL Not Available [facility] (Lab) [address], [place], [address], 02/11/2025 13:44:39 02/11/20 25 02/10/2025 TYPE/ RH/SC REEN ABO/Rh type O POS Not Available [facility] (Lab) [address] [place], [address], 02/11/2025 13:44:40 02/11/20 25 02/10/2025 TYPE/ RH/SC REEN antibody screen NEG Not Available [facility] (Lab) [address] [place], [address], 02/11/2025 13:44:40 02/11/20 25 02/10/2025 TYPE/ RH/SC REEN exp date 2024 23:59 Not Available [facility] (Lab) [address], [place], [address], 02/11/2025 13:44:40 02/11/20 25 02/10/2025 HEMOG LOBIN [...] >8.0% Actio n sugge sted Not Available [facility] (Lab) [address] , [place], [address], 02/11/2025 13:44:40 02/11/20 25 02/10/2025 RPR SCREE N, REFLE X TITER /CONF IRMAT ION RPR qualitative Nonrea ctive nonrea ctive Not Available [facility] (Lab) [address], [place], [address], 02/11/2025 13:44:41 02/11/20 25 02/10/2025 drug scree n, urine Amphetamines : negati ve Not Available [facility] [address], [place], [address], 02/10/2025 12:55:20 02/11/20 25 02/10/2025 drug scree n, urine Cannabinoids : negati ve Not Available [facility] [address], [place], [address], 02/10/2025 12:55:20 02/11/20 25 02/10/2025 drug scree n, urine Cocaine: negati ve Not Available [facility] [address], [place], [address], 02/10/2025 12:55:20 02/11/20 25 02/10/2025 drug scree n, urine Opiates: negati ve Not Available [facility] [address], [place], [address], 02/10/2025 12:55:20 02/11/20 25 02/10/2025 drug scree n, urine Barbiturates : negati ve Not Available [facility] [address], [place], [address], 02/10/2025 12:55:20 02/11/20 25 02/10/2025 drug scree n, urine Benzodiazepi john: negati ve Not Available [facility] [address], [place], [address], 02/10/2025 12:55:20 03/10/20 25 03/10/2025 CULTU RE: URINE result report SEE RESULT S BELOW Test: Cultu re: Urine Speci men Sourc e: Urine Voide d Speci men Type: Urine Speci men Date: 202438 Resul t Date: 2024 Resul t Statu s: Final resul t Abnor mal: No Resul ting Lab: [facility] [address] [facility] [address] Tel: CULTU RE ----- ----- ----- --- No growt h in 1 day (dete ction level of 10,00 0 colon ies / ml.) Not Available [facility] (Lab) [address], [place], [address], 03/11/2025 23:15:50 04/03/20 25 04/03/2025 CBC W/DIF F WBC 12.9 10'3/ uL 3.5-10 .5 high Not Available [facility] (Lab) [address], [place], [address], 04/04/2025 04:39:51 04/03/20 25 04/03/2025 CBC W/DIF F RBC 4.33 10'6/ uL (based on docume nted legal sex) 3.80-5 .20 Not Available [facility] (Lab) [address], [place], [address], 04/04/2025 04:39:51 04/03/2004/03/2025 CBC W/DIF F HGB 13.2 g/dL (based on docume nted legal sex) 11.6-1 5.4 Not Available [facility] (Lab) [address], [place], [address], 04/04/2025 04:39:51 04/03/2004/03/2025 CBC W/DIF F HCT 40.2 % (based on docume nted legal sex) 34.0-4 5.0 Not Available [facility] (Lab) [address], [place], [address], 04/04/2025 04:39:51 04/03/2004/03/2025 CBC W/DIF F MCV 92.8 fL 80.0-9 9.0 Not Available [facility] (Lab) [address], [place], [address], 04/04/2025 04:39:51 04/03/2004/03/2025 CBC W/DIF F MCH 30.5 pg 27.0-3 4.0 Not Available [facility] (Lab) [address], [place], [address], 04/04/2025 04:39:51 04/03/2004/03/2025 CBC W/DIF F MCHC 32.8 g/dL 32.0-3 5.5 Not Available [facility] (Lab) [address] [place], [address], 04/04/2025 04:39:51 04/03/2004/03/2025 CBC W/DIF F RDW 13.0 % 11.0-1 5.0 Not Available [facility] (Lab) [address], [place], [address], 04/04/2025 04:39:51 04/03/2004/03/2025 CBC W/DIF F plt 131 10'3/ uL 150-40 0 low Not Available [facility] (Lab) [address], [place], [address], 04/04/2025 04:39:51 04/03/2004/03/2025 CBC W/DIF F MPV 13.9 fL 8.8-12 .1 high Not Available [facility] (Lab) [address], [place], [address], 04/04/2025 04:39:51 04/03/2004/03/2025 CBC W/DIF F NRBC's 0.0 % 0.0 Not Available [facility] (Lab) [address], [place], [address], 04/04/2025 04:39:51 04/03/2004/03/2025 CBC W/DIF F absolute NRBCs 0.0 10'3/ uL no refere nce range establ ished Not Available [facility] (Lab) [address], [place], [address], 04/04/2025 04:39:51 04/03/2004/03/2025 CBC W/DIF F neutrophils 76.6 % 34.0-7 3.0 high Not Available [facility] (Lab) [address], [place], [address], 04/04/2025 04:39:51 04/03/20 25 04/03/2025 CBC W/DIF F lymphocytes 14.2 % 15.0-5 0.0 low Not Available [facility] (Lab) [address], [place], [address], 04/04/2025 04:39:51 04/03/2004/03/2025 CBC W/DIF F monocytes 7.6 % 1.0-15 .0 Not Available [facility] (Lab) [address], [place], [address], 04/04/2025 04:39:51 04/03/2004/03/2025 CBC W/DIF F eosinophils 0.7 % 0.0-8. 0 Not Available [facility] (Lab) [address], [place], [address], 04/04/2025 04:39:51 04/03/2004/03/2025 CBC W/DIF F basophils 0.4 % 0.0-2. 0 Not Available [facility] (Lab) [address], [place], [address], 04/04/2025 04:39:51 04/03/2004/03/2025 CBC W/DIF F immature granulocytes 0.5 % no define d refere nce range Immat ure Granu locyt es (IG) repre sents autom ated enume ratio n of Metam yeloc ytes, Myelo cytes and Promy elocy umair when IG is < 5%. Blast s are not inclu ded in IG and repor alfredo separ ately if prese nt. Not Available [facility] (Lab) [address], [place], [address], 04/04/2025 04:39:51 04/03/2004/03/2025 CBC W/DIF F absolute neutrophils 9.9 10'3/ uL 1.5-8. 0 high Not Available [facility] (Lab) [address], [place], [address], 04/04/2025 04:39:51 04/03/2004/03/2025 CBC W/DIF F absolute lymphocytes 1.8 10'3/ uL 1.0-4. 0 Not Available [facility] (Lab) [address], [place], [address], 04/04/2025 04:39:51 04/03/2004/03/2025 CBC W/DIF F absolute monocytes 1.0 10'3/ uL 0.2-1. 0 Not Available [facility] (Lab) [address], [place], [address], 04/04/2025 04:39:51 04/03/2004/03/2025 CBC W/DIF F absolute eosinophils 0.1 10'3/ uL 0.0-0. 6 Not Available [facility] (Lab) [address], [place], [address], 04/04/2025 04:39:51 04/03/2004/03/2025 CBC W/DIF F absolute basophils 0.1 10'3/ uL 0.0-0. 3 Not Available [facility] (Lab) [address], [place], [address], 04/04/2025 04:39:51 04/03/2004/03/2025 CBC W/DIF F absolute immature granulocytes 0.1 10'3/ uL 0.00-0 .10 Refer ence range s for nonbi nary/ inter sex or unspe cifie d gende r patie nts have not been estab lishe d. Pleas e [facility] for range s estab lishe d for cisge nder patie nts and evalu ate in the clini randal kiera xt of the indiv idual patie nt: https :[email or web address] calzada book. nm.or g/gen derx Not Available [facility] (Lab) [address], [place], [address], 04/04/2025 04:39:51 05/02/2005/02/2025 CULTU RE: URINE result report SEE RESULT S BELOW Test: Cultu re: Urine Speci men Sourc e: Urine - Clean Catch Speci men Type: Urine Speci men Date: 1502 Resul t Date: 0404 Resul t Statu s: Final resul t Abnor mal: No Resul ting Lab: [facility] [address] [facility] [address] Tel: [phone] CULTU RE ----- ----- ----- --- No growt h in 1 day (dete ction level of 10,00 0 colon ies / ml.) Not Available [facility] (Lab) [address], [place], [address], 05/04/2025 05:09:17 05/30/20 25 05/30/2025 CBC W/DIF F WBC 11.9 10'3/ uL 3.5-10 .5 high Not Available [facility] (Lab) [address], [place], [address], 05/31/2025 12:26:07 05/30/20 25 05/30/2025 CBC W/DIF F RBC 3.98 10'6/ uL (based on docume nted legal sex) 3.80-5 .20 Not Available [facility] (Lab) [address], [place], [address], 05/31/2025 12:26:07 05/30/20 25 05/30/2025 CBC W/DIF F HGB 12.4 g/dL (based on docume nted legal sex) 11.6-1 5.4 Not Available [facility] (Lab) [address], [place], [address], 05/31/2025 12:26:07 05/30/20 25 05/30/2025 CBC W/DIF F HCT 36.8 % (based on docume nted legal sex) 34.0-4 5.0 Not Available [facility] (Lab) [address] [place], [address], 05/31/2025 12:26:07 05/30/20 25 05/30/2025 CBC W/DIF F MCV 92.5 fL 80.0-9 9.0 Not Available [facility] (Lab) [address] [place], [address], 05/31/2025 12:26:07 05/30/20 25 05/30/2025 CBC W/DIF F MCH 31.2 pg 27.0-3 4.0 Not Available [facility] (Lab) [address], [place], [address], 05/31/2025 12:26:07 05/30/20 25 05/30/2025 CBC W/DIF F MCHC 33.7 g/dL 32.0-3 5.5 Not Available [facility] (Lab) [address], [place], [address], 05/31/2025 12:26:07 05/30/20 25 05/30/2025 CBC W/DIF F RDW 13.4 % 11.0-1 5.0 Not Available [facility] (Lab) [address], [place], [address], 05/31/2025 12:26:07 05/30/20 25 05/30/2025 CBC W/DIF F plt 113 10'3/ uL 150-40 0 low Not Available [facility] (Lab) [address], [place], [address], 05/31/2025 12:26:07 05/30/20 25 05/30/2025 CBC W/DIF F MPV 13.8 fL 8.8-12 .1 high Not Available [facility] (Lab) [address], [place], [address], 05/31/2025 12:26:07 05/30/20 25 05/30/2025 CBC W/DIF F NRBC's 0.0 % 0.0 Not Available [facility] (Lab) [address], [place], [address], 05/31/2025 12:26:07 05/30/20 25 05/30/2025 CBC W/DIF F absolute NRBCs 0.0 10'3/ uL no refere nce range establ ished Not Available [facility] (Lab) [address], [place], [address], 05/31/2025 12:26:07 05/30/20 25 05/30/2025 CBC W/DIF F neutrophils 79.4 % 34.0-7 3.0 high Not Available [facility] (Lab) [address] [place], [address], 05/31/2025 12:26:07 05/30/20 25 05/30/2025 CBC W/DIF F lymphocytes 10.8 % 15.0-5 0.0 low Not Available [facility] (Lab) [address], [place], [address], 05/31/2025 12:26:07 05/30/20 25 05/30/2025 CBC W/DIF F monocytes 7.7 % 1.0-15 .0 Not Available [facility] (Lab) [address], [place], [address], 05/31/2025 12:26:07 05/30/20 25 05/30/2025 CBC W/DIF F eosinophils 0.8 % 0.0-8. 0 Not Available [facility] (Lab) [address], [place], [address], 05/31/2025 12:26:07 05/30/20 25 05/30/2025 CBC W/DIF F basophils 0.4 % 0.0-2. 0 Not Available [facility] (Lab) [address], [place], [address], 05/31/2025 12:26:07 05/30/20 25 05/30/2025 CBC W/DIF [...] separ ately if prese nt. Not Available [facility] (Lab) [address], [place], [address], 05/31/2025 12:26:07 05/30/20 25 05/30/2025 CBC W/DIF F absolute neutrophils 9.5 10'3/ uL 1.5-8. 0 high Not Available [facility] (Lab) [address], [place], [address], 05/31/2025 12:26:07 05/30/20 25 05/30/2025 CBC W/DIF F absolute lymphocytes 1.3 10'3/ uL 1.0-4. 0 Not Available [facility] (Lab) [address], [place], [address], 05/31/2025 12:26:07 05/30/20 25 05/30/2025 CBC W/DIF F absolute monocytes 0.9 10'3/ uL 0.2-1. 0 Not Available [facility] (Lab) [address], [place], [address], 05/31/2025 12:26:07 05/30/20 25 05/30/2025 CBC W/DIF F absolute eosinophils 0.1 10'3/ uL 0.0-0. 6 Not Available [facility] (Lab) [address], [place], [address], 05/31/2025 12:26:07 05/30/20 25 05/30/2025 CBC W/DIF F absolute basophils 0.1 10'3/ uL 0.0-0. 3 Not Available [facility] (Lab) [address], [place], [address], 05/31/2025 12:26:07 05/30/20 25 05/30/2025 CBC W/DIF F absolute immature granulocytes 0.1 10'3/ uL 0.00-0 .10 Refer ence range s for nonbi nary/ inter sex or unspe cifie d gende r patie nts have not been estab lishe d. Casey e refer to the follo wing table for range s estab lishe d for cisge nder patie nts and evalu ate in the clini randal kiera xt of the indiv idual patie nt: [email or web address] :[email or web address] [email or web address].or g/gen derx Not Available [facility] (Lab) [address], [place], [address], 05/31/2025 12:26:07 05/30/20 25 05/30/2025 HIV 1/2 ANTIG EN/AN TIBOD Y, REFLE X CONFI RMATI ON HIV antigen/anti body Nonrea ctive nonrea ctive HIV-1 antig en and HIV-1 /HIV- 2 antib odies were not detec alfredo. No labor atory evide nce of HIV infec tion. Not Available [facility] (Lab) [address], [place], [address], 05/31/2025 12:26:07 05/30/20 25 05/30/2025 GTT - GESTA REGAN L SCREE N, ACOG OB glucose, 1 hour screen 82 mg/dL 70-135 Not Available [facility] (Lab) [address], [place], [address], 05/31/2025 12:26:08 05/30/20 25 05/30/2025 RPR SCREE N, REFLE X TITER /CONF IRMAT ION RPR qualitative Nonrea ctive nonrea ctive Not Available [facility] (Lab) [address] [place], [address], 05/31/2025 12:26:08 06/30/20 25 06/30/2025 CBC W/DIF F WBC 11.6 10'3/ uL 3.5-10 .5 high Not Available [facility] (Lab) [address] [facility], [place], [address], 07/01/2025 02:43:32 06/30/20 25 06/30/2025 CBC W/DIF F RBC 3.97 10'6/ uL (based on docume nted legal sex) 3.80-5 .20 Not Available [facility] (Lab) [address], [place], [address], 07/01/2025 02:43:32 06/30/20 25 06/30/2025 CBC W/DIF F HGB 12.4 g/dL (based on docume nted legal sex) 11.6-1 5.4 Not Available [facility] (Lab) [address], [place], [address], 07/01/2025 02:43:32 06/30/20 25 06/30/2025 CBC W/DIF F HCT 35.3 % (based on docume nted legal sex) 34.0-4 5.0 Not Available [facility] (Lab) [address] [facility], [place], [address], 07/01/2025 02:43:32 06/30/20 25 06/30/2025 CBC W/DIF F MCV 88.9 fL 80.0-9 9.0 Not Available [facility] (Lab) [address], [place], [address], 07/01/2025 02:43:32 06/30/20 25 06/30/2025 CBC W/DIF F MCH 31.2 pg 27.0-3 4.0 Not Available [facility] (Lab) [address], [place], [address], 07/01/2025 02:43:32 06/30/20 25 06/30/2025 CBC W/DIF F MCHC 35.1 g/dL 32.0-3 5.5 Not Available [facility] (Lab) [address], [place], [address], 07/01/2025 02:43:32 06/30/20 25 06/30/2025 CBC W/DIF F RDW 13.2 % 11.0-1 5.0 Not Available [facility] (Lab) [address], [place], [address], 07/01/2025 02:43:32 06/30/20 25 06/30/2025 CBC W/DIF F plt 106 10'3/ uL 150-40 0 low Not Available [facility] (Lab) [address], [place], [address], 07/01/2025 02:43:32 06/30/20 25 06/30/2025 CBC W/DIF F MPV 13.2 fL 8.8-12 .1 high Not Available [facility] (Lab) [address], [place], [address], 07/01/2025 02:43:32 06/30/20 25 06/30/2025 CBC W/DIF F NRBC's 0.0 % 0.0 Not Available [facility] (Lab) [address], [place], [address], 07/01/2025 02:43:32 06/30/20 25 06/30/2025 CBC W/DIF F absolute NRBCs 0.0 10'3/ uL no refere nce range establ ished Not Available [facility] (Lab) [address], [place], [address], 07/01/2025 02:43:32 06/30/20 25 06/30/2025 CBC W/DIF F neutrophils 77.2 % 34.0-7 3.0 high Not Available [facility] (Lab) [address], [place], [address], 07/01/2025 02:43:32 06/30/20 25 06/30/2025 CBC W/DIF F lymphocytes 13.2 % 15.0-5 0.0 low Not Available [facility] (Lab) [address], [place], [address], 07/01/2025 02:43:32 06/30/20 25 06/30/2025 CBC W/DIF F monocytes 7.5 % 1.0-15 .0 Not Available [facility] (Lab) [address], [place], [address], 07/01/2025 02:43:32 06/30/20 25 06/30/2025 CBC W/DIF F eosinophils 0.9 % 0.0-8. 0 Not Available [facility] (Lab) [address], [place], [address], 07/01/2025 02:43:32 06/30/20 25 06/30/2025 CBC W/DIF F basophils 0.4 % 0.0-2. 0 Not Available [facility] (Lab) [address], [place], [address], 07/01/2025 02:43:32 06/30/20 25 06/30/2025 CBC W/DIF F immature granulocytes 0.8 % no define d refere nce range Immat ure Granu locyt es (IG) repre sents autom ated enume ratio n of Metam yeloc ytes, Myelo cytes and Promy elocy umair when IG is < 5%. Blast s are not inclu ded in IG and repor alfredo separ ately if prese nt. Not Available [facility] (Lab) [address], [place], [address], 07/01/2025 02:43:32 06/30/20 25 06/30/2025 CBC W/DIF F absolute neutrophils 8.9 10'3/ uL 1.5-8. 0 high Not Available [facility] (Lab) [address], [place], [address], 07/01/2025 02:43:32 06/30/20 25 06/30/2025 CBC W/DIF F absolute lymphocytes 1.5 10'3/ uL 1.0-4. 0 Not Available [facility] (Lab) [address], [place], [address], 07/01/2025 02:43:32 06/30/20 25 06/30/2025 CBC W/DIF F absolute monocytes 0.9 10'3/ uL 0.2-1. 0 Not Available [facility] (Lab) [address], [place], [address], 07/01/2025 02:43:32 06/30/20 25 06/30/2025 CBC W/DIF F absolute eosinophils 0.1 10'3/ uL 0.0-0. 6 Not Available [facility] (Lab) [address], [place], [address], 07/01/2025 02:43:32 06/30/20 25 06/30/2025 CBC W/DIF F absolute basophils 0.1 10'3/ uL 0.0-0. 3 Not Available [facility] (Lab) [address], [place], [address], 07/01/2025 02:43:32 06/30/2006/30/2025 CBC W/DIF F absolute immature granulocytes 0.1 [...] calzada book. nm.or g/gen derx Not Available [facility] (Lab) [address] , [place], [address], 07/01/2025 02:43:32 07/12/20 25 07/12/2025 CBC W/DIF F WBC 13.2 10'3/ uL 3.5-10 .5 high Not Available [facility] (Lab) [address] [facility], [place], [address], 07/13/2025 05:59:18 07/12/20 25 07/12/2025 CBC W/DIF F RBC 3.94 10'6/ uL (based on docume nted legal sex) 3.80-5 .20 Not Available [facility] (Lab) [address], [place], [address], 07/13/2025 05:59:18 07/12/20 25 07/12/2025 CBC W/DIF F HGB 11.9 g/dL (based on docume nted legal sex) 11.6-1 5.4 Not Available [facility] (Lab) [address], [place], [address], 07/13/2025 05:59:18 07/12/20 25 07/12/2025 CBC W/DIF F HCT 34.9 % (based on docume nted legal sex) 34.0-4 5.0 Not Available [facility] (Lab) [address], [place], [address], 07/13/2025 05:59:18 07/12/20 25 07/12/2025 CBC W/DIF F MCV 88.6 fL 80.0-9 9.0 Not Available [facility] (Lab) [address], [place], [address], 07/13/2025 05:59:18 07/12/20 25 07/12/2025 CBC W/DIF F MCH 30.2 pg 27.0-3 4.0 Not Available [facility] (Lab) [address] [place], [address], 07/13/2025 05:59:18 07/12/20 25 07/12/2025 CBC W/DIF F MCHC 34.1 g/dL 32.0-3 5.5 Not Available [facility] (Lab) [address] [place], [address], 07/13/2025 05:59:18 07/12/20 25 07/12/2025 CBC W/DIF F RDW 13.0 % 11.0-1 5.0 Not Available [facility] (Lab) [address] [place], [address], 07/13/2025 05:59:18 07/12/20 25 07/12/2025 CBC W/DIF F plt 110 10'3/ uL 150-40 0 low Not Available [facility] (Lab) [address] [facility], [place], [address], 07/13/2025 05:59:18 07/12/20 25 07/12/2025 CBC W/DIF F MPV 12.9 fL 8.8-12 .1 high Not Available [facility] (Lab) [address], [place], [address], 07/13/2025 05:59:18 07/12/20 25 07/12/2025 CBC W/DIF F NRBC's 0.0 % 0.0 Not Available [facility] (Lab) [address], [place], [address], 07/13/2025 05:59:18 07/12/20 25 07/12/2025 CBC W/DIF F absolute NRBCs 0.0 10'3/ uL no refere nce range establ ished Not Available [facility] (Lab) [address], [place], [address], 07/13/2025 05:59:18 07/12/20 25 07/12/2025 CBC W/DIF F neutrophils 75.1 % 34.0-7 3.0 high Not Available [facility] (Lab) [address], [place], [address], 07/13/2025 05:59:18 07/12/20 25 07/12/2025 CBC W/DIF F lymphocytes 12.6 % 15.0-5 0.0 low Not Available [facility] (Lab) [address], [place], [address], 07/13/2025 05:59:18 07/12/20 25 07/12/2025 CBC W/DIF F monocytes 9.7 % 1.0-15 .0 Not Available [facility] (Lab) [address], [place], [address], 07/13/2025 05:59:18 07/12/20 25 07/12/2025 CBC W/DIF F eosinophils 0.9 % 0.0-8. 0 Not Available [facility] (Lab) [address], [place], [address], 07/13/2025 05:59:18 07/12/20 25 07/12/2025 CBC W/DIF F basophils 0.5 % 0.0-2. 0 Not Available [facility] (Lab) [address], [place], [address], 07/13/2025 05:59:18 07/12/20 25 07/12/2025 CBC W/DIF F immature granulocytes 1.2 % no define d refere nce range Immat ure Granu locyt es (IG) repre sents autom ated enume ratio n of Metam yeloc ytes, Myelo cytes and Promy elocy umair when IG is < 5%. Blast s are not inclu ded in IG and repor alfredo separ ately if prese nt. Not Available [facility] (Lab) [address], [place], [address], 07/13/2025 05:59:18 07/12/20 25 07/12/2025 CBC W/DIF F absolute neutrophils 9.9 10'3/ uL 1.5-8. 0 high Not Available [facility] (Lab) [address], [place], [address], 07/13/2025 05:59:18 07/12/20 25 07/12/2025 CBC W/DIF F absolute lymphocytes 1.7 10'3/ uL 1.0-4. 0 Not Available [facility] (Lab) [address], [place], [address], 07/13/2025 05:59:18 07/12/20 25 07/12/2025 CBC W/DIF F absolute monocytes 1.3 10'3/ uL 0.2-1. 0 high Not Available [facility] (Lab) [address], [place], [address], 07/13/2025 05:59:18 07/12/20 25 07/12/2025 CBC W/DIF F absolute eosinophils 0.1 10'3/ uL 0.0-0. 6 Not Available [facility] (Lab) [address], [place], [address], 07/13/2025 05:59:18 07/12/20 25 07/12/2025 CBC W/DIF F absolute basophils 0.1 10'3/ uL 0.0-0. 3 Not Available [facility] (Lab) [address], [place], [address], 07/13/2025 05:59:18 07/12/20 25 07/12/2025 CBC W/DIF F absolute immature granulocytes 0.2 10'3/ uL 0.00-0 .10 high Refer ence range s for nonbi nary/ inter sex or unspe cifie d gende r patie nts have not been estab lishe d. Pleas e refer to the tony santos table for range s estab lishe d for cisge nder patie nts and evalu ate in the clini randal kiera xt of the indiv idual patie nt: https ://misael calzada book. nm.or g/gen derx Not Available [facility] (Lab) [address], [place], [address], 07/13/2025 05:59:18 07/24/20 25 07/24/2025 CBC W/DIF F WBC 14.4 10'3/ uL 3.5-10 .5 high Not Available [facility] (Lab) [address], [place], [address], 2025 04:12:09 07/24/20 25 07/24/2025 CBC W/DIF F RBC 4.15 10'6/ uL (based on docume nted legal sex) 3.80-5 .20 Not Available [facility] (Lab) [address], [place], [address], 2025 04:12:09 07/24/20 25 07/24/2025 CBC W/DIF F HGB 12.8 g/dL (based on docume nted legal sex) 11.6-1 5.4 Not Available [facility] (Lab) [address], [place], [address], 2025 04:12:09 07/24/20 25 07/24/2025 CBC W/DIF F HCT 37.2 % (based on docume nted legal sex) 34.0-4 5.0 Not Available [facility] (Lab) [address], [place], [address], 2025 04:12:09 07/24/20 25 07/24/2025 CBC W/DIF F MCV 89.6 fL 80.0-9 9.0 Not Available [facility] (Lab) [address], [place], [address], 2025 04:12:09 07/24/20 25 07/24/2025 CBC W/DIF F MCH 30.8 pg 27.0-3 4.0 Not Available [facility] (Lab) [address] [place], [address], 2025 04:12:09 07/24/20 25 07/24/2025 CBC W/DIF F MCHC 34.4 g/dL 32.0-3 5.5 Not Available [facility] (Lab) [address] [place], [address], 2025 04:12:09 07/24/20 25 07/24/2025 CBC W/DIF F RDW 14.1 % 11.0-1 5.0 Not Available [facility] (Lab) [address] [place], [address], 2025 04:12:09 07/24/20 25 07/24/2025 CBC W/DIF F plt 115 10'3/ uL 150-40 0 low Not Available [facility] (Lab) [address] [facility], [place], [address], 2025 04:12:09 07/24/20 25 07/24/2025 CBC W/DIF F MPV 13.3 fL 8.8-12 .1 high Not Available [facility] (Lab) [address], [place], [address], 2025 04:12:09 07/24/20 25 07/24/2025 CBC W/DIF F NRBC's 0.0 % 0.0 Not Available [facility] (Lab) [address], [place], [address], 2025 04:12:09 07/24/20 25 07/24/2025 CBC W/DIF F absolute NRBCs 0.0 10'3/ uL no refere nce range establ ished Not Available [facility] (Lab) [address], [place], [address], 2025 04:12:09 07/24/20 25 07/24/2025 CBC W/DIF F neutrophils 75.6 % 34.0-7 3.0 high Not Available [facility] (Lab) [address], [place], [address], 2025 04:12:09 07/24/20 25 07/24/2025 CBC W/DIF F lymphocytes 12.3 % 15.0-5 0.0 low Not Available [facility] (Lab) [address], [place], [address], 2025 04:12:09 07/24/20 25 07/24/2025 CBC W/DIF F monocytes 9.3 % 1.0-15 .0 Not Available [facility] (Lab) [address], [place], [address], 2025 04:12:09 07/24/20 25 07/24/2025 CBC W/DIF F eosinophils 0.6 % 0.0-8. 0 Not Available [facility] (Lab) [address], [place], [address], 2025 04:12:09 07/24/20 25 07/24/2025 CBC W/DIF F basophils 0.5 % 0.0-2. 0 Not Available [facility] (Lab) [address], [place], [address], 2025 04:12:09 07/24/20 25 07/24/2025 CBC W/DIF F immature granulocytes 1.7 % no define d refere nce range Immat ure Granu locyt es (IG) repre sents autom ated enume ratio n of Metam yeloc ytes, Myelo cytes and Promy elocy umair when IG is < 5%. Blast s are not inclu ded in IG and repor alfredo separ ately if prese nt. Not Available [facility] (Lab) [address], [place], [address], 2025 04:12:09 07/24/20 25 07/24/2025 CBC W/DIF F absolute neutrophils 10.8 10'3/ uL 1.5-8. 0 high Not Available [facility] (Lab) [address], [place], [address], 2025 04:12:09 07/24/20 25 07/24/2025 CBC W/DIF F absolute lymphocytes 1.8 10'3/ uL 1.0-4. 0 Not Available [facility] (Lab) [address], [place], [address], 2025 04:12:09 07/24/20 25 07/24/2025 CBC W/DIF F absolute monocytes 1.3 10'3/ uL 0.2-1. 0 high Not Available [facility] (Lab) [address], [place], [address], 2025 04:12:09 07/24/20 25 07/24/2025 CBC W/DIF F absolute eosinophils 0.1 10'3/ uL 0.0-0. 6 Not Available [facility] (Lab) [address], [place], [address], 2025 04:12:09 07/24/20 25 07/24/2025 CBC W/DIF F absolute basophils 0.1 10'3/ uL 0.0-0. 3 Not Available [facility] (Lab) [address], [place], [address], 2025 04:12:09 07/24/20 25 07/24/2025 CBC W/DIF F absolute immature granulocytes 0.3 10'3/ uL 0.00-0 .10 high Refer ence range s for nonbi nary/ inter sex or unspe cifie d gende r patie nts have not been estab lishe d. Pleas e refer to the tony santos table for range s estab lishe d for cisge nder patie nts and evalu ate in the clini randal kiera xt of the indiv idual patie nt: https ://la jud book. nm.or g/gen derx Not Available [facility] (Lab) [address], [place], [address], 2025 04:12:09 02/11/20 25 02/10/2025 US, ovi tric, nucha l trans lucen cy No observ ation record ed. [facility] [address], [place], [address], 02/10/2025 18:38:42 02/11/20 25 02/10/2025 US, obste tric follo w-up No observ ation record ed. [email or web address] [address] [address], [place], [address], 02/13/2025 09:20:03 04/03/20 25 04/03/2025 US, obste tric, 2nd or 3rd trime ster No observ ation record ed. [email or web address] [facility] [address], [place], [address], 04/03/2025 18:43:20 04/03/20 25 04/03/2025 US, obste tric, 2nd or 3rd trime ster No observ ation record ed. [email or web address] [facility] [address], [place], [address], 04/05/2025 17:47:52 04/21/20 25 04/21/2025 non-s tress test No observ ation record ed. [address] [place] [address], [place], [address], 04/24/2025 12:03:28 05/02/20 25 05/02/2025 US, obste tric, follo w-up [facility] observ [facility] [address], [place], [address], 05/02/2025 12:58:26 05/02/20 25 05/02/2025 US, obste tric, follo w-up No observ ation record ed. ROBERT [facility] [address], [place], [address], 05/03/2025 18:13:01 05/29/20 25 05/29/2025 non-s tress test No observ ation record ed. [address] [address], [place], [address], 05/31/2025 15:39:22 06/20/20 25 06/20/2025 imagi ng/di agnos tic resul t No observ ation record ed. [facility] [address] [place], [address], 06/20/2025 13:33:45 06/20/2006/20/2025 US, obste tric, follo w-up No observ ation record ed. farhat [facility] [address] [place], [address], 06/27/2025 17:32:46 07/03/2007/03/2025 non-s tress test No observ ation record ed. [address] [facility] [address], [place], [address], 07/19/2025 15:34:42 07/03/2007/03/2025 imagi ng/di agnos tic resul t No observ ation record ed. [place] [id number], [address], 07/03/2025 11:55:37 Result Notes None recorded. Problems Name Problem SNOMED Code Status Onset Date Resolution Date Notes Provider Name and Address Organization Details Recorded Time Anxiety 00661489 Active 2024 Kristen sánchez [facility] 11:01:06 82131181 Active 2024 Aleah Bedolla [facility] 11:57:32 Platelet count below reference range 261940682 Active 2024 Referral faxed to [facility] 06/01 scheduled 06/20 0900 Level II us and consult Zoey sánchez [facility] 11:50:53 Problem Notes None recorded. Procedures Surgical History Date Name Laterality Status Provider Name and Address Organization Details Recorded Time 5 Date of Last Pap Smear completed Kristen Ruffin [facility] 01/13/2025 11:01:13 7 operative procedure on wrist completed Aleah Bedolla [facility] 02/10/2025 11:57:07 Imaging Results None recorded. Procedure [...] and Address Organization Details Last Updated DateTime 07/24/2025 170.18 cm 29.1 kg/m2 50719.18 g 139/81 mm[Hg] Isabel Romero [facility] 07/24/2025 11:31:16 Social History Question Answer Notes LastModified by Organizat ion Details LastModified Time Tobacco Smoking Status Never Smoker Kristen sánchez, [facility] 01/13/2025 11:05:22 If You Are , What Was Your Level Of Alcohol Consumption Prior To ? Occasional [email or web address] Information not available 01/13/2025 Are You Blind Or Do You Have Difficulty Seeing? No [email or web address] Information n ot available 01/13/2025 What Is Your Level Of Caffeine Consumption? Occasional [email or web address] Information not available 01/13/2025 In The 14 Days Before Symptom Onset, Have You Had Close Contact With A Laboratory-confirm ed COVID-19 While That Case Was Ill? No [email or web address] Information n ot available 01/13/2025 In The 14 Days Before Symptom Onset, Have You Had Close Contact With A Person Who Is Under Investigation For COVID-19 While That Person Was Ill? No [email or web address] Information not available 01/13/2025 Have You Been To An Area Known To Be High Risk For COVID-19? No Information not available 01/13/2025 Are You Deaf Or Do You Have Serious Difficulty Hearing? No [email or web address] Information not available 01/13/2025 Do You Have Smoke And Carbon Monoxide Detectors In Your Home? Yes [email or web address] Information not available 01/13/2025 Do You Use Sunscreen Routinely? Yes [email or web address] Information not available 01/13/2025 Has Tobacco Cessation Counseling Been Provided? No [email or web address] Information not available 01/13/2025 Have You Used IV Drugs? No [email or web address] Information not available 01/13/2025 Do You Have Difficulty Walking Or Climbing Stairs? No [email or web address] Information not available 01/13/2025 Sex: Unknown Functional Status Question Answer Note LastModified by Organizat ion Details LastModified Time Do you use any illicit or recreational drugs? No [email or web address] Information not available 01/13/2025 Do you or have you ever used any other forms of tobacco or nicotine? Yes [email or web address] Information not available 01/13/2025 What is your level of alcohol consumption? None Information not available 01/13/2025 Are you able to walk independently without assistance or assistive devices? YESWOREST [email or web address] Information not available 01/13/2025 Are you able to care for yourself independently? Yes Information not available 01/13/2025 Do you have difficulty dressing, bathing, grooming, or toileting? No [email or web address] Information not available 01/13/2025 Do you or have you ever used e-cigarettes or vape? Former user of electronic cigarettes [email or web address] Information not available 01/13/2025 Mental Status None recorded. Family History Relationship Description Onset Age of this Age Resolved Age Notes LastModified by Organization Details LastModified Time Unspecified Relation Family history unknown [email or web address] Not available 2024 13:48:03 Paternal Grandfather Malignant neoplasm of prostate [email or web address] Not available 07/02 11:19:15 Maternal Grandfather Malignant neoplasm of lung [email or web address] Not available 01/13 11:03:40 Maternal Grandmother Malignant neoplasm of pancreas [email or web address] Not available 07/02 11:19:15 Maternal Aunt Malignant neoplasm of breast [email or web address] Not available 2024 13:48:03 Father Leukemia [email or web address] Not availa ble 07/24/2025 11:19:16 Mother Diabetes mellitus [email or web address] Not available 01/13 11:04:57 Medical History Condition [...] ICD10 Code Diagnosis IMO Codes Diagnosis Note [id number] JOLIE TOMLINSON MD [facility] [address] [address] 06/30/2025 11:40:05 06/30/2025 12:44:02 Platelet count below reference range 073228634 D69.6 [id number] - plt 125>131>11 3- MFM consult Gestation period, 32 weeks 7658005 Z3A.32 5050763 - continue PNV [id number] JOLIE TOMLINSON MD [facility] [address] [address] 07/12/2025 13:47:56 07/14/2025 11:51:27 Thrombocytopenic disorder 429416533 D69.6 59931 - plt 125>131>77 - repeat today- MFM consult Gestation period, 34 weeks 81539957 Z3A.34 8642888 - continue PNV [id number] JOLIE TOMLINSON MD [facility] [address] [address] 07/24/2025 11:18:52 07/24/2025 12:20:34 Thrombocytopenic disorder 419842731 D69.6 48541 - plt 125>131>77 >110- repeat today- [facility] consult Gestation period, 36 weeks 71379048 Z3A.36 [id number] Health Concerns Section Related Observation LastModified by Organization Detai ls LastModified Time None Recorded Concern Status LastModified by Organization Details LastModified Time None Recorded Payers Encounter Date Sequence Insurance Name Policy Number Policy Marie Covered Member ID Marie Member ID Guarantor Name 07/24/2025 1 [employer] (PP[employer]) [id number] Kya Angulo [id number] Kya Angulo 07/24/2025 [facility] - DOS ON OR AFTER 21 (MEDICAID REPLACEMENT - HMO) Gabby Jose [id number] Kya Angulo Notes Date Note Type Note Provider Name and Address Organization Details Recorded Time 07/24/2025 text/html Generic HPI TemplateReported by Patient JOLIE TOMLINSON MD [address], [place], [address], [facility] 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 Problem Name Start Date End Date Resolution Snomed Code Not e Platelet count below reference range 06/01/2025 [id number] [facility]20 0900 Level II us [...] Date Ultra Sound Latest Days Gestation 0 [email or web address] 02/10/2025 08/21/20 25 0 Pre- Flowsheet Flowsheet Date 02/10/2025 [place] Score Blood Edema Fundus Height Fundus Units Glucose Ketones Leukocytes Nitrite Labor Signs Protein Cervic Dilation Cervic Effacement Cervic Station Type Weight in lbs Pre/Post Dialysis Refused Weight 153.898412144658 BP Diastolic BP Location Tested BP Systolic BP Type 77 L arm 122 sitting Fetus Heart Rate Present A Present Fetus Movement Comments Patient presents to [facility] care. otherwise uncomplicated. No bleeding [...] Weight in lbs Pre/Post Dialysis Refused Weight 156.231588843155 BP Diastolic BP Location Tested BP Systolic [...] Weight in lbs Pre/Post Dialysis Refused Weight [id number] BP Diastolic BP Location Tested BP Systolic [...] Weight in lbs Pre/Post Dialysis Refused Weight 165.466195860184 BP Diastolic BP Location Tested BP Systolic [...] Type Weight in lbs Pre/Post Dialysis Refused 176.223172047316 BP Diastolic BP Location Tested BP Systolic BP Type 78 L arm 118 sitting Fetus Heart Rate Present A 150 Fetus Movement A Yes Comments Had an episode of DFM yester day, went to [place] and had negative workup. No cramping or bleeding. GCT and labs today, will draw CBC as well. Discussed Tdap, RSV, and flu vaccines. RTC 2 weeks. Flowsheet Date 06/13/2025 [place] Score Blood Edema Fundus Height Fundus Units Glucose Ketones Leukocytes Nitrite Labor Signs Protein Cervic Dilation Cervic Effacement Cervic Station Type Weight in lbs Pre/Post Dialysis Refused 181.216643649941 BP Diastolic BP Location Tested BP Systolic [...] Weight in lbs Pre/Post Dialysis Refused Weight 178.984939857512 BP Diastolic BP Location Tested BP Systolic BP Type 78 L arm 112 sitting Fetus Heart Rate Present A 140 Fetus Movement A Yes Comments Good movement. No cram ping or bleeding. Saw MFM, recommend platelet counts every visit. [employer] appointment next week to determine if autoimmune vs gestational. EFW 92%, AC 93%; discussed 39 week induction, plan for 12/15 PM. Preadmission scheduled. RSV vaccine discussed. RTC 2 weeks. Flowsheet Date 07/12/2025 [place] Score Blood Edema Fundus Height Fundus Units Glucose Ketones Leukocytes Nitrite Labor Signs Protein Cervic Dilation Cervic Effacement Cervic Station Type Weight in lbs Pre/Post Dialysis Refused Weight 185.867365115849 BP Diastolic BP Location Tested BP Systolic [...] Weight in lbs Pre/Post Dialysis Refused Weight 186.475806609278 BP Diastolic BP Location Tested BP Systolic [...]
--- OUTSIDE RECORDS SUMMARY | 2025-07-26 07:31 | XMS_ITS | Data Portability ---
Author Organization [facility] Address [address] [place] [address] Care Team Providers Care Video Network Engineer Name Role Phone SHERYL DICKSON Primary Care Provider Assessment No assessment recorded. Plan of Treatment Reminders Order Date Submit Date Provider Last Modified By Organization Details Last Modified Time Details Appointments WE[facility]OM[facility]-EST 2024 02:45P Cosmo TOMLINSON MD Not available Not available Not available INDUCTION 2024 04:00P Cosmo TOMLINSON MD Not available Not available Not available Lab CBC w/ auto diff 2024 025 [facility] (Lab), [address] [place], [address], 07/24/2025 12:12:50 CBC w/ auto diff 2024 025 [facility] (Lab), [address] [place], [address], 07/01/2025 02:43:32 CBC w/ auto diff 2024 025 [facility] (Lab), [address], [place], [address], 05/31/2025 12:26:07 Referral None recorded. Procedures None recorded. Surgeries None recorded. Imaging None recorded. Medication Orders None recorded. Patient TargetsNo targets recorded. Patient InstructionsNo instructions recorded. Reason for Referral None Reported. Results Created Date Observation Date Name Description Value Unit Range Abnormal Flag Note LastModifiedBy Organization Detail LastModifiedTime 05/02/2005/02/2025 CULTU RE: URINE result report SEE RESULT S BELOW Test: Cultu re: Urine Speci men Sourc e: Urine - Clean Catch Speci men Type: Urine Speci men Date: 1502 Resul t Date: 0404 Resul t Statu s: Final resul t Abnor mal: No Resul ting Lab: [facility] [address] [facility] [address] Tel: CULTU RE ----- ----- ----- --- No growt h in 1 day (dete ction level of 10,00 0 colon ies / ml.) Not Available [facility] (Lab) [address], [place], [address], 05/04/2025 05:09:17 05/30/2005/30/2025 CBC W/DIF F WBC 11.9 10'3/ uL 3.5-10 .5 high Not Available [facility] (Lab) [address], [place], [address], 05/31/2025 12:26:07 05/30/20 25 05/30/2025 CBC W/DIF F RBC 3.98 10'6/ uL (based on docume nted legal sex) 3.80-5 .20 Not Available [facility] (Lab) [address] [place], [address], 05/31/2025 12:26:07 05/30/20 25 05/30/2025 CBC W/DIF F HGB 12.4 g/dL (based on docume nted legal sex) 11.6-1 5.4 Not Available [facility] (Lab) [address], [place], [address], 05/31/2025 12:26:07 05/30/20 25 05/30/2025 CBC W/DIF F HCT 36.8 % (based on docume nted legal sex) 34.0-4 5.0 Not Available [facility] (Lab) [address], [place], [address], 05/31/2025 12:26:07 05/30/20 25 05/30/2025 CBC W/DIF F MCV 92.5 fL 80.0-9 9.0 Not Available [facility] (Lab) [address], [place], [address], 05/31/2025 12:26:07 05/30/20 25 05/30/2025 CBC W/DIF F MCH 31.2 pg 27.0-3 4.0 Not Available [facility] (Lab) [address], [place], [address], 05/31/2025 12:26:07 05/30/20 25 05/30/2025 CBC W/DIF F MCHC 33.7 g/dL 32.0-3 5.5 Not Available [facility] (Lab) [address], [place], [address], 05/31/2025 12:26:07 05/30/20 25 05/30/2025 CBC W/DIF F RDW 13.4 % 11.0-1 5.0 Not Available [facility] (Lab) [address], [place], [address], 05/31/2025 12:26:07 05/30/20 25 05/30/2025 CBC W/DIF F plt 113 10'3/ uL 150-40 0 low Not Available [facility] (Lab) [address], [place], [address], 05/31/2025 12:26:07 05/30/20 25 05/30/2025 CBC W/DIF F MPV 13.8 fL 8.8-12 .1 high Not Available [facility] (Lab) [address], [place], [address], 05/31/2025 12:26:07 05/30/20 25 05/30/2025 CBC W/DIF F NRBC's 0.0 % 0.0 Not Available [facility] (Lab) [address], [place], [address], 05/31/2025 12:26:07 05/30/20 25 05/30/2025 CBC W/DIF F absolute NRBCs 0.0 10'3/ uL no refere nce range establ ished Not Available [facility] (Lab) [address], [place], [address], 05/31/2025 12:26:07 05/30/20 25 05/30/2025 CBC W/DIF F neutrophils 79.4 % 34.0-7 3.0 high Not Available [facility] (Lab) [address], [place], [address], 05/31/2025 12:26:07 05/30/20 25 05/30/2025 CBC W/DIF F lymphocytes 10.8 % 15.0-5 0.0 low Not Available [facility] (Lab) [address], [place], [address], 05/31/2025 12:26:07 05/30/20 25 05/30/2025 CBC W/DIF F monocytes 7.7 % 1.0-15 .0 Not Available [facility] (Lab) [address], [place], [address], 05/31/2025 12:26:07 05/30/20 25 05/30/2025 CBC W/DIF F eosinophils 0.8 % 0.0-8. 0 Not Available [facility] (Lab) [address] [place], [address], 05/31/2025 12:26:07 05/30/20 25 05/30/2025 CBC W/DIF F basophils 0.4 % 0.0-2. 0 Not Available [facility] (Lab) [address] [place], [address], 05/31/2025 12:26:07 05/30/20 25 05/30/2025 CBC W/DIF [...] separ ately if prese nt. Not Available [facility] (Lab) [address], [place], [address], 05/31/2025 12:26:07 05/30/20 25 05/30/2025 CBC W/DIF F absolute neutrophils 9.5 10'3/ uL 1.5-8. 0 high Not Available [facility] (Lab) [address] [place], [address], 05/31/2025 12:26:07 05/30/20 25 05/30/2025 CBC W/DIF F absolute lymphocytes 1.3 10'3/ uL 1.0-4. 0 Not Available [facility] (Lab) [address], [place], [address], 05/31/2025 12:26:07 05/30/20 25 05/30/2025 CBC W/DIF F absolute monocytes 0.9 10'3/ uL 0.2-1. 0 Not Available [facility] (Lab) [address] [place], [address], 05/31/2025 12:26:07 05/30/20 25 05/30/2025 CBC W/DIF F absolute eosinophils 0.1 10'3/ uL 0.0-0. 6 Not Available [facility] (Lab) [address] [place], [address], 05/31/2025 12:26:07 05/30/20 25 05/30/2025 CBC W/DIF F absolute basophils 0.1 10'3/ uL 0.0-0. 3 Not Available [facility] (Lab) [address], [place], [address], 05/31/2025 12:26:07 05/30/20 25 05/30/2025 CBC W/DIF F absolute immature granulocytes 0.1 10'3/ uL 0.00-0 .10 Refer ence range s for nonbi nary/ inter sex or unspe cifie d gende r patie nts have not been estab lishe d. Pleas e refer to the follo wing table for range s estab lishe d for cisge nder patie nts and evalu ate in the clini randal kiera xt of the indiv idual patie nt: https ://la bhand book. nm.or g/gen derx Not Available [facility] (Lab) [address], [place], [address], 05/31/2025 12:26:07 05/30/20 25 05/30/2025 HIV 1/2 ANTIG EN/AN TIBOD Y, REFLE X CONFI RMATI ON HIV antigen/anti body Nonrea ctive nonrea ctive HIV-1 antig en and HIV-1 /HIV- 2 antib odies were not detec alfredo. No labor atory evide nce of HIV infec tion. Not Available [facility] (Lab) [address], [place], [address], 05/31/2025 12:26:07 05/30/20 25 05/30/2025 GTT - GESTA REGAN L ASHOK N, ACOG OB glucose, 1 hour screen 82 mg/dL 70-135 Not Available [facility] (Lab) [address], [place], [address], 05/31/2025 12:26:08 05/30/20 25 05/30/2025 RPR SCREE N, REFLE X TITER /CONF IRMAT ION RPR qualitative Nonrea ctive nonrea ctive Not Available [facility] (Lab) [address], [place], [address], 05/31/2025 12:26:08 06/30/20 25 06/30/2025 CBC W/DIF F WBC 11.6 10'3/ uL 3.5-10 .5 high Not Available [facility] (Lab) [address], [place], [address], 07/01/2025 02:43:32 06/30/20 25 06/30/2025 CBC W/DIF F RBC 3.97 10'6/ uL (based on docume nted legal sex) 3.80-5 .20 Not Available [facility] (Lab) [address], [place], [address], 07/01/2025 02:43:32 06/30/20 25 06/30/2025 CBC W/DIF F HGB 12.4 g/dL (based on docume nted legal sex) 11.6-1 5.4 Not Available [facility] (Lab) [address], [place], [address], 07/01/2025 02:43:32 06/30/20 25 06/30/2025 CBC W/DIF F HCT 35.3 % (based on docume nted legal sex) 34.0-4 5.0 Not Available [facility] (Lab) [address], [place], [address], 07/01/2025 02:43:32 06/30/20 25 06/30/2025 CBC W/DIF F MCV 88.9 fL 80.0-9 9.0 Not Available [facility] (Lab) [address], [place], [address], 07/01/2025 02:43:32 06/30/20 25 06/30/2025 CBC W/DIF F MCH 31.2 pg 27.0-3 4.0 Not Available [facility] (Lab) [address], [place], [address], 07/01/2025 02:43:32 06/30/20 25 06/30/2025 CBC W/DIF F MCHC 35.1 g/dL 32.0-3 5.5 Not Available [facility] (Lab) [address], [place], [address], 07/01/2025 02:43:32 06/30/20 25 06/30/2025 CBC W/DIF F RDW 13.2 % 11.0-1 5.0 Not Available [facility] (Lab) [address], [place], [address], 07/01/2025 02:43:32 06/30/20 25 06/30/2025 CBC W/DIF F plt 106 10'3/ uL 150-40 0 low Not Available [facility] (Lab) [address], [place], [address], 07/01/2025 02:43:32 06/30/20 25 06/30/2025 CBC W/DIF F MPV 13.2 fL 8.8-12 .1 high Not Available [facility] (Lab) [address], [place], [address], 07/01/2025 02:43:32 06/30/20 25 06/30/2025 CBC W/DIF F NRBC's 0.0 % 0.0 Not Available [facility] (Lab) [address], [place], [address], 07/01/2025 02:43:32 06/30/20 25 06/30/2025 CBC W/DIF F absolute NRBCs 0.0 10'3/ uL no refere nce range establ ished Not Available [facility] (Lab) [address], [place], [address], 07/01/2025 02:43:32 06/30/20 25 06/30/2025 CBC W/DIF F neutrophils 77.2 % 34.0-7 3.0 high Not Available [facility] (Lab) [address], [place], [address], 07/01/2025 02:43:32 06/30/20 25 06/30/2025 CBC W/DIF F lymphocytes 13.2 % 15.0-5 0.0 low Not Available [facility] (Lab) [address], [place], [address], 07/01/2025 02:43:32 06/30/20 25 06/30/2025 CBC W/DIF F monocytes 7.5 % 1.0-15 .0 Not Available [facility] (Lab) [address], [place], [address], 07/01/2025 02:43:32 06/30/20 25 06/30/2025 CBC W/DIF F eosinophils 0.9 % 0.0-8. 0 Not Available [facility] (Lab) [address], [place], [address], 07/01/2025 02:43:32 06/30/20 25 06/30/2025 CBC W/DIF F basophils 0.4 % 0.0-2. 0 Not Available [facility] (Lab) [address], [place], [address], 07/01/2025 02:43:32 06/30/20 25 06/30/2025 CBC W/DIF [...] separ ately if prese nt. Not Available [facility] (Lab) [address], [place], [address], 07/01/2025 02:43:32 06/30/20 25 06/30/2025 CBC W/DIF F absolute neutrophils 8.9 10'3/ uL 1.5-8. 0 high Not Available [facility] (Lab) [address], [place], [address], 07/01/2025 02:43:32 10/31/20 25 06/30/2025 CBC W/DIF F absolute lymphocytes 1.5 10'3/ uL 1.0-4. 0 Not Available [facility] (Lab) [address], [place], [address], 07/01/2025 02:43:32 06/30/20 25 06/30/2025 CBC W/DIF F absolute monocytes 0.9 10'3/ uL 0.2-1. 0 Not Available [facility] (Lab) [address], [place], [address], 07/01/2025 02:43:32 06/30/20 25 06/30/2025 CBC W/DIF F absolute eosinophils 0.1 10'3/ uL 0.0-0. 6 Not Available [facility] (Lab) [address], [place], [address], 07/01/2025 02:43:32 06/30/20 25 06/30/2025 CBC W/DIF F absolute basophils 0.1 10'3/ uL 0.0-0. 3 Not Available [facility] (Lab) [address], [place], [address], 07/01/2025 02:43:32 06/30/20 25 06/30/2025 CBC W/DIF F absolute immature granulocytes 0.1 10'3/ uL 0.00-0 .10 Refer ence range s for nonbi nary/ inter sex or unspe cifie d gende r patie nts have not been estab lishe d. Pleas e refer to the follo wing table for range s estab lishe d for cisge nder patie nts and evalu ate in the clini randal kiera xt of the indiv idual patie nt: https ://misael calzada book. nm.or g/gen derx Not Available [facility] (Lab) [address], [place], [address], 07/01/2025 02:43:32 07/12/20 25 07/12/2025 CBC W/DIF F WBC 13.2 10'3/ uL 3.5-10 .5 high Not Available [facility] (Lab) [address], [place], [address], 07/13/2025 05:59:18 07/12/20 25 07/12/2025 CBC W/DIF F RBC 3.94 10'6/ uL (based on docume nted legal sex) 3.80-5 .20 Not Available [facility] (Lab) [address], [place], [address], 07/13/2025 05:59:18 07/12/20 25 07/12/2025 CBC W/DIF F HGB 11.9 g/dL (based on docume nted legal sex) 11.6-1 5.4 Not Available [facility] (Lab) [address], [place], [address], 07/13/2025 05:59:18 07/12/20 25 07/12/2025 CBC W/DIF F HCT 34.9 % (based on docume nted legal sex) 34.0-4 5.0 Not Available [facility] (Lab) [address], [place], [address], 07/13/2025 05:59:18 07/12/20 25 07/12/2025 CBC W/DIF F MCV 88.6 fL 80.0-9 9.0 Not Available [facility] (Lab) [address], [place], [address], 07/13/2025 05:59:18 07/12/20 25 07/12/2025 CBC W/DIF F MCH 30.2 pg 27.0-3 4.0 Not Available [facility] (Lab) [address], [place], [address], 07/13/2025 05:59:18 07/12/20 25 07/12/2025 CBC W/DIF F MCHC 34.1 g/dL 32.0-3 5.5 Not Available [facility] (Lab) [address], [place], [address], 07/13/2025 05:59:18 07/12/20 25 07/12/2025 CBC W/DIF F RDW 13.0 % 11.0-1 5.0 Not Available [facility] (Lab) [address], [place], [address], 07/13/2025 05:59:18 07/12/20 25 07/12/2025 CBC W/DIF F plt 110 10'3/ uL 150-40 0 low Not Available [facility] (Lab) [address], [place], [address], 07/13/2025 05:59:18 07/12/20 25 07/12/2025 CBC W/DIF F MPV 12.9 fL 8.8-12 .1 high Not Available [facility] (Lab) [address], [place], [address], 07/13/2025 05:59:18 07/12/20 25 07/12/2025 CBC W/DIF F NRBC's 0.0 % 0.0 Not Available [facility] (Lab) [address], [place], [address], 07/13/2025 05:59:18 07/12/20 25 07/12/2025 CBC W/DIF F absolute NRBCs 0.0 10'3/ uL no refere nce range establ ished Not Available [facility] (Lab) [address], [place], [address], 07/13/2025 05:59:18 07/12/20 25 07/12/2025 CBC W/DIF F neutrophils 75.1 % 34.0-7 3.0 high Not Available [facility] (Lab) [address], [place], [address], 07/13/2025 05:59:18 07/12/20 25 07/12/2025 CBC W/DIF F lymphocytes 12.6 % 15.0-5 0.0 low Not Available [facility] (Lab) [address], [place], [address], 07/13/2025 05:59:18 07/12/20 25 07/12/2025 CBC W/DIF F monocytes 9.7 % 1.0-15 .0 Not Available [facility] (Lab) [address], [place], [address], 07/13/2025 05:59:18 07/12/20 25 07/12/2025 CBC W/DIF F eosinophils 0.9 % 0.0-8. 0 Not Available [facility] (Lab) [address], [place], [address], 07/13/2025 05:59:18 07/12/20 25 07/12/2025 CBC W/DIF F basophils 0.5 % 0.0-2. 0 Not Available [facility] (Lab) [address], [place], [address], 07/13/2025 05:59:18 07/12/20 25 07/12/2025 CBC W/DIF [...] separ ately if prese nt. Not Available [facility] (Lab) [address], [place], [address], 07/13/2025 05:59:18 07/12/20 25 07/12/2025 CBC W/DIF F absolute neutrophils 9.9 10'3/ uL 1.5-8. 0 high Not Available [facility] (Lab) [address], [place], [address], 07/13/2025 05:59:18 07/12/20 25 07/12/2025 CBC W/DIF F absolute lymphocytes 1.7 10'3/ uL 1.0-4. 0 Not Available [facility] (Lab) [address], [place], [address], 07/13/2025 05:59:18 07/12/20 25 07/12/2025 CBC W/DIF F absolute monocytes 1.3 10'3/ uL 0.2-1. 0 high Not Available [facility] (Lab) [address], [place], [address], 07/13/2025 05:59:18 07/12/20 25 07/12/2025 CBC W/DIF F absolute eosinophils 0.1 10'3/ uL 0.0-0. 6 Not Available [facility] (Lab) [address], [place], [address], 07/13/2025 05:59:18 07/12/20 25 07/12/2025 CBC W/DIF F absolute basophils 0.1 10'3/ uL 0.0-0. 3 Not Available [facility] (Lab) [address], [place], [address], 07/13/2025 05:59:18 07/12/20 25 07/12/2025 CBC W/DIF [...] calzada book. nm.or g/gen derx Not Available [facility] (Lab) [address], [place], [address], 07/13/2025 05:59:18 05/02/20 25 05/02/2025 US, obste tric, follo w-up No observ ation record ed. [facility] [address], [place], [address], 05/02/2025 12:58:26 05/02/20 25 05/02/2025 US, obste tric, follo w-up No observ ation record ed. ROBERT Autumn [address], [place], [address], 05/03/2025 18:13:01 05/29/20 25 05/29/2025 non-s tress test No observ ation record ed. [address] [facility], [place], [address], 05/31/2025 15:39:22 06/20/20 25 06/20/2025 imagi ng/di agnos tic resul t No observ ation record ed. [facility] [address] [place], [address], 06/20/2025 13:33:45 06/20/20 25 06/20/2025 US, obste tric, follo w-up No observ ation record ed. [address] [facility] [address] [place], [address], 06/27/2025 17:32:46 07/03/20 25 07/03/2025 non-s tress test No observ ation record ed. [address], [place], [address], 07/19/2025 15:34:42 07/03/20 25 07/03/2025 imagi ng/di agnos tic resul t No observ ation record ed. [place] [id number] [facility] [address], [place], [address], 07/03/2025 11:55:37 Result Notes None recorded. Problems Name Problem SNOMED Code Status Onset Date Resolution Date Notes Provider Name and Address Organization Details Recorded Time Anxiety 84288542 Active 2024 Kristen Ruffin [facility] 5 11:01:06 45657762 Active 2024 Aleah Bedolla [facility] 5 11:57:32 Platelet count below reference range 082450471 Active 2024 Referral faxed to [facility] 06/01 scheduled 06/20 0900 Level II us and consult Zoey Tarango [facility] 5 11:50:53 Problem Notes None recorded. Procedures Surgical History Date Name Laterality Status Provider Name and Address Organization Details Recorded Time 5 Date of Last Pap Smear completed Kristen Ruffin [facility] 01/13/2025 11:01:13 7 operative procedure on wrist completed Aleah Bedolla [facility] 02/10/2025 11:57:07 Imaging Results None recorded. [...] Address Organization Details Last Updated DateTime 05/30/2025 70623.41189 g 118/78 mm[Hg] [facility] 05/30/2025 09:51:58 Date Recorded Body weight Systolic And Diastolic Provider Name and Address Organization Details Last Updated DateTime 06/13/2025 37007.85316 g 116/80 mm[Hg] [facility] 06/13/2025 15:35:31 Date Recorded Body height Body mass index (BMI) Body weight Systolic And Diastolic Provider Name and Address Organization Details Last Updated DateTime 06/30/2025 170.18 cm 27.9 kg/m2 81378.44 g 112/78 mm[Hg] [facility] 06/30/2025 12:00:49 Date Recorded Body height Body mass index (BMI) Body weight Systolic And Diastolic Provider Name and Address Organization Details Last Updated DateTime 07/12/2025 170.18 cm 29 kg/m2 75930.59 g 120/78 mm[Hg] Isabel Albertshelly [facility] 07/12/2025 14:04:56 Date Recorded Body height Body mass index (BMI) Body weight Systolic And Diastolic Provider Name and Address Organization Details Last Updated DateTime 07/24/2025 170.18 cm 29.1 kg/m2 40474.18 g 139/81 mm[Hg] Isabel [facility] Rice Lakeshelly [facility] 07/24/2025 11:31:16 Social History Question Answer Notes LastModified by Organizat ion Details LastModified Time Tobacco Smoking Status Never Smoker Kristen sánchez, [facility] 01/13/2025 11:05:22 If You Are , What Was Your Level Of Alcohol Consumption Prior To ? Occasional Information not available 01/13/2025 Are You Blind Or Do You Have Difficulty Seeing? No [email or web address] Information n ot available 01/13/2025 What Is Your Level Of Caffeine Consumption? Occasional [email or web address] Information not available 01/13/2025 In The 14 Days Before Symptom Onset, Have You Had Close Contact With A Laboratory-confirm ed COVID-19 While That Case Was Ill? No [email or web address] Information n ot available 01/13/2025 In The 14 Days Before Symptom Onset, Have You Had Close Contact With A Person Who Is Under Investigation For COVID-19 While That Person Was Ill? No [email or web address] Information not available 01/13/2025 Have You Been To An Area Known To Be High Risk For COVID-19? No [email or web address] Information not available 01/13/2025 Are You Deaf Or Do You Have Serious Difficulty Hearing? No [email or web address] Information not available 01/13/2025 Do You Have Smoke And Carbon Monoxide Detectors In Your Home? Yes [email or web address] Information not available 01/13/2025 Do You Use Sunscreen Routinely? Yes [email or web address] Information not available 01/13/2025 Has Tobacco Cessation Counseling Been Provided? No [email or web address] Information not available 01/13/2025 Have You Used IV Drugs? No Information not available 01/13/2025 Do You Have Difficulty Walking Or Climbing Stairs? No [email or web address] Information not available 01/13/2025 Sex: Unknown Functional Status Question Answer Note LastModified by Organizat ion Details LastModified Time Do you use any illicit or recreational drugs? No [email or web address] Information not available 01/13/2025 Do you or have you ever used any other forms of tobacco or nicotine? Yes Information not available 01/13/2025 What is your level of alcohol consumption? None Information not available 01/13/2025 Are you able to walk independently without assistance or assistive devices? YESWOREST [email or web address] Information not available 01/13/2025 Are you able to care for yourself independently? Yes [email or web address] Information not available 01/13/2025 Do you have difficulty dressing, bathing, grooming, or toileting? No [email or web address] Information not available 01/13/2025 Do you or have you ever used e-cigarettes or vape? Former user of electronic cigarettes [email or web address] Information not available 01/13/2025 Mental Status None recorded. Family History Relationship Description Onset Age of this Age Resolved Age Notes LastModified by Organization Details LastModified Time Unspecified Relation Family history unknown [email or web address] Not available 2024 13:48:03 Paternal Grandfather Malignant neoplasm of prostate [email or web address] Not available 07/02 11:19:15 Maternal Grandfather Malignant neoplasm of lung [email or web address] Not available 01/13 11:03:40 Maternal Grandmother Malignant neoplasm of pancreas [email or web address] Not available 07/02 11:19:15 Maternal Aunt Malignant neoplasm of breast [email or web address] Not available 2024 13:48:03 Father Leukemia [email or web address] Not availa ble 07/24/2025 11:19:16 Mother Diabetes mellitus [email or web address] Not available 01/13 11:04:57 Medical History Condition Response Allergies (Food, seasonal, environmental ) N Other N Drug/Latex Allergies/Reactions N Breast Cancer N Blood Transfusion N Dermatologic Disorders N [...] Neurologic/Epilepsy N Endometriosis N High Cholesterol N Fibromyalgia N Headaches N Kidney Disease N Heart Problems N Thyroid Problems N Kidney or Bladder Problems N GI Problems N Eating Disorder [...] ICD10 Code Diagnosis IMO Codes Diagnosis Note [id number] Hayden Steele MD [place] [address] [address] 01/13/2025 09:39:53 01/13/2025 10:18:45 [id number] Isabelle Be CNM [place] [address] [address] 01/13/2025 09:41:07 01/13/2025 12:58:36 Amenorrhea 03680822 N91.2 55026 reviewed education and precaution fátima for gummy PNVunisom and b6 for nauseapap not collected, reviewed usplan 12 week new ob and first look Gynecologi c examination 13305223 Z01.286 1088311 [id number] MD Jayjay HALE [address],[place] [address] 02/10/2025 10:30:31 02/10/2025 11:51:00 screening 778414779 Z36.82 Z3A.12 254897 [id number] MD Jayjay HALE [address],[place] [address] 02/10/2025 10:30:56 02/10/2025 12:34:45 screening 126038799 Z36.89 Genetic in vestigation procedure 59175136 Z31.430 Gestation period, 12 weeks 58442205 Z3A.12 6158654 First trim rosa 00566022 Z34.01 31756261 [id number] MD Jayjay HALE [address],[place] [address] 03/10/2025 09:22:48 03/10/2025 10:45:15 Second trimester 31550762 Z34.02 94418526 [id number] MD Jayjay HALE [address],[place] [address] 04/03/2025 14:40:22 04/03/2025 16:20:20 screening for malformation 070591764 Z36.3 Z3A.20 [id number] MD Jayjay HALE [address],[place] [address] 04/03/2025 14:44:57 04/03/2025 16:37:32 Thrombocytopenic disorder 176646989 D69.6 54521 - plt 125 on new OB labs- repeat today Gestation period, 20 weeks 43692369 Z3A.20 2172998 - continue PNV [id number] MD Jayjay HALE [address],[place] [address] 05/02/2025 09:18:09 05/02/2025 10:11:24 Follow-up encounter 723846150 Z36.2 Z3A.24 7247836164 [id number] MD Jayjay HALE [address] [address] 05/02/2025 09:25:23 05/02/2025 10:55:47 Nausea and vomiting 97466544 R11.2 Second tri mester 11157257 Z34.02 65239404 [id number] MD Jayjay HALE [address],[place] [address] 05/30/2025 09:40:10 05/30/2025 10:26:07 Thrombocytopenic disorder 380375231 D69.6 02486 - plt 125>131- repeat today Gestation period, 28 weeks 53915486 Z3A.28 4562562 [id number] MD Jayjay HALE [address],[place] [address] 06/13/2025 15:20:18 06/13/2025 16:44:44 Platelet count below reference range 719237877 D69.6 85489021 - plt 125>131>11 3- MFM consult Gestation period, 30 weeks 53408111 Z3A.30 4648224 [id number] MD Jayjay HALE [address],[place] [address] 06/30/2025 11:40:05 06/30/2025 12:44:02 Platelet count below reference range 327206786 D69.6 86557828 - plt 125>131>11 3- MFM consult Gestation period, 32 weeks 8237686 Z3A.32 4000195 - continue PNV [id number] MD Jayjay HALE [address],[place] [address] 07/12/2025 13:47:56 07/14/2025 11:51:27 Thrombocytopenic disorder 495440363 D69.6 10928 - plt 125>131>77 - repeat today- MFM consult Gestation period, 34 weeks 17321046 Z3A.34 2301992 - continue PNV [id number] MD Jayjay HALE [address],[place] [address] 07/24/2025 11:18:52 07/24/2025 12:20:34 Thrombocytopenic disorder 879944612 D69.6 12594 - plt 125>131>77 >110- repeat today- MFM consult Gestation period, 36 weeks 34374966 Z3A.36 4923916 Health Concerns Section Related Observation LastModified by Organization Detai ls LastModified Time None Recorded Concern Status LastModified by Organization Details LastModified Time None Recorded Advance Directives Directive None Recorded Payers Insurance Date Sequence Insurance Name Policy Number Policy Marie Covered Member ID Marie Member ID Guarantor Name 07/22/2025 2 [place] [facility]ID Gabby Jose [id number] Kya Angulo 01/17/2025 1 [place] Kya Kev [id number] Kya Kev 07/22/2025 1 [place] [id number] Kya Angulo [id number] Kya Angulo 07/19/2025 2 [place] [facility] [facility] PUBLIC AID Gabby Jose [id number] Kya Angulo 07/21/2025 [facility] - DOS ON OR AFTER 21 (MEDICAID REPLACEMENT - HMO) Gabby Jose [id number] Kya Angulo Notes Date Note Type Note Provider Name and Address Organization Details Recorded Time 05/30/2025 text/html Generic HPI TemplateReported by Patient JOLIE TOMLINSON MD [address], [place], [address], [facility] 05/30/2025 10:25:43 06/13/2025 text/html Generic HPI TemplateReported by Patient JOLIE TOMLINSON MD [address], [place], [address], [facility] 06/13/2025 16:44:32 06/30/2025 text/html Generic HPI TemplateReported by Patient JOLIE TOMLINSON MD [address], [place], [address], [facility] 06/30/2025 12:29:02 07/12/2025 text/html Generic HPI TemplateReported by Patient JOLIE TOMLINSON MD [address], [place], [address], [facility] 07/14/2025 11:42:33 07/24/2025 text/html Generic HPI TemplateReported by Patient JOLIE TOMLINSON MD [address], [place], [address], [place] [facility] 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 Problem Name Start Date End Date Resolution Snomed Code Not e Platelet count below reference range 06/01/2025 [id number] [facility] 06/01 scheduled 06/20 0900 Level II [...] Weight in lbs Pre/Post Dialysis Refused Weight 153.895822133357 BP Diastolic BP Location Tested BP Systolic BP Type 77 L arm 122 sitting Fetus Heart Rate Present A Present Fetus Movement Comments Patient presents to [facility] care. otherwise uncomplicated. No bleeding or [...] Weight in lbs Pre/Post Dialysis Refused Weight 156.050442915082 BP Diastolic BP Location Tested BP Systolic [...] Weight in lbs Pre/Post Dialysis Refused Weight 160.896329173622 BP Diastolic BP Location Tested BP Systolic [...] Weight in lbs Pre/Post Dialysis Refused Weight 165.075097753592 BP Diastolic BP Location Tested BP Systolic [...] Type Weight in lbs Pre/Post Dialysis Refused 176.221669692895 BP Diastolic BP Location Tested BP Systolic BP Type 78 L arm 118 sitting Fetus Heart Rate Present A 150 Fetus Movement A Yes Comments Had an episode of DFM yester day, went to [facility] and had negative workup. No cramping or bleeding. GCT and labs today, will draw CBC as well. Discussed Tdap, RSV, and flu vaccines. RTC 2 weeks. Flowsheet Date 06/13/2025 Kirkland Score Blood Edema Fundus Height Fundus Units Glucose Ketones Leukocytes Nitrite Labor Signs Protein Cervic Dilation Cervic Effacement Cervic Station Type Weight in lbs Pre/Post Dialysis Refused 181.236115863630 BP Diastolic BP Location Tested BP Systolic [...] Weight in lbs Pre/Post Dialysis Refused Weight 178.645675138343 BP Diastolic BP Location Tested BP Systolic BP Type 78 L arm 112 sitting Fetus Heart Rate Present A 140 Fetus Movement A Yes Comments Good movement. No cram ping or bleeding. Saw MFM, recommend platelet counts every visit. Clinical Tech appointment next week to determine if autoimmune vs gestational. EFW 92%, AC 93%; discussed 39 week induction, plan for 12/15 PM. Preadmission scheduled. RSV vaccine discussed. RTC 2 weeks. Flowsheet Date 07/12/2025 Kirkland Score Blood Edema Fundus Height Fundus Units Glucose Ketones Leukocytes Nitrite Labor Signs Protein Cervic Dilation Cervic Effacement Cervic Station Type Weight in lbs Pre/Post Dialysis Refused Weight 185.966241375028 BP Diastolic BP Location Tested BP Systolic [...] Weight in lbs Pre/Post Dialysis Refused Weight 186.676236089633 BP Diastolic BP Location Tested BP Systolic [...]
--- OUTSIDE RECORDS SUMMARY | 2025-07-26 07:32 | XMS_ITS | Continuity of Care Document ---
Author Organization [facility] Address [address] [place] [address] Care Team Providers Care Diving Judge Name Role Phone SHERYL DICKSON Primary Care [...] Available Ollie gong [address], [place], [address], 02/16/2025 19:59:32 02/17/20 25 02/16/2025 [UNIT Y] ANEUP LOIDY NIPT 22Q11.2 microdeletio n LOW RISK <1 in 10,000 normal Not Available [facility] [address], [place], [address], 02/16/2025 19:59:32 02/17/20 25 02/16/2025 [UNIT Y] ANEUP LOIDY NIPT sex chromosome aneuploidy NOT DETECT ED normal Not Available [facility] [address], [place], [address], 02/16/2025 19:59:32 02/17/20 25 02/16/2025 [UNIT Y] ANEUP LOIDY NIPT monosomy X LOW RISK <1 in 10,000 normal Not Available [facility] [address], [place], [address], 02/16/2025 19:59:32 02/17/20 25 02/16/2025 [UNIT Y] ANEUP LOIDY NIPT trisomy 13 LOW RISK <1 in 10,000 normal Not Available [facility] [address], [place], [address], 02/16/2025 19:59:32 02/17/20 25 02/16/2025 [UNIT Y] ANEUP LOIDY NIPT trisomy 18 LOW RISK <1 in 10,000 normal Not Available [facility] [address], [place], [address], 02/16/2025 19:59:32 02/17/20 25 02/16/2025 [UNIT Y] ANEUP LOIDY NIPT trisomy 21 LOW RISK <1 in 10,000 normal Not Available [facility] [address], [place], [address], 02/16/2025 19:59:32 02/17/20 25 02/16/2025 [UNIT Y] ANEUP LOIDY NIPT sex MALE normal Not Available [facility] [address], [place], [address], 02/16/2025 19:59:32 02/17/20 25 02/16/2025 [UNIT Y] ANEUP LOIDY NIPT gestation SINGLE TON normal Not Available [facility] [address], [place], [address], 02/16/2025 19:59:32 02/17/20 25 02/16/2025 [UNIT Y] ANEUP LOIDY NIPT for detailed report, see pdf See PDF normal Not Available [facility] [address], [place], [address], 02/16/2025 19:59:32 02/22/20 25 02/21/2025 [UNIT Y] FLETCHER Rose sickle cell disease/beta -thalassemia /hemoglobino pathies carrier screen NEGATI VE normal Not Available [facility] [address], [place], [address], 02/21/2025 14:09:41 02/22/20 25 02/21/2025 [UNIT Y] FLETCHER Rose alpha-thalas semia carrier screen NEGATI VE normal Not Available [facility] [address], [place], [address], 02/21/2025 14:09:41 02/22/20 25 02/21/2025 [UNIT Y] FLETCHER Rose cystic fibrosis carrier screen NEGATI VE normal Not Available [facility] [address], [place], [address], 02/21/2025 14:09:41 02/22/20 25 02/21/2025 [UNIT Y] FLETCHER Rose spinal muscular atrophy carrier screen NEGATI VE 2 SMN1 copies , SNP not presen t normal Not Available [facility] [address], [place], [address], 02/21/2025 14:09:41 02/22/20 25 02/21/2025 [UNIT Y] FLETCHER Rose for detailed report, see pdf See PDF normal Not Available [facility] [address], [place], [address], 02/21/2025 14:09:41 02/11/20 25 02/10/2025 CT/GC AND TRICH OMONA S VAGIN KARLO (RRNA ), URINE chlamydia trachomatis, PCR Negati ve negati ve Not Available [facility] (Lab) [address], [place], [address], 02/11/2025 12:05:33 02/11/2002/10/2025 CT/GC AND TRICH OMONA S VAGIN KARLO (RRNA ), URINE neisseria gonorrhoeae, PCR Negati ve negati ve Not Available [facility] (Lab) [address], [place], [address], 02/11/2025 12:05:33 02/11/2002/10/2025 CT/GC AND TRICH OMONA S VAGIN KARLO (RRNA ), URINE trichomonas vaginalis ribosomal RNA (rrna) Negati ve negati ve Not Available [facility] (Lab) [address], [place], [address], 02/11/2025 12:05:33 02/11/20 25 02/10/2025 CBC W/DIF F WBC 8.7 10'3/ uL 3.5-10 .5 Not Available [facility] (Lab) [address], [place], [address], 02/11/2025 13:44:37 02/11/20 25 02/10/2025 CBC W/DIF F RBC 4.55 10'6/ uL (based on docume nted legal sex) 3.80-5 .20 Not Available [facility] (Lab) [address], [place], [address], 02/11/2025 13:44:37 02/11/20 25 02/10/2025 CBC W/DIF F HGB 13.7 g/dL (based on docume nted legal sex) 11.6-1 5.4 Not Available [facility] (Lab) [address], [place], [address], 02/11/2025 13:44:37 02/11/20 25 02/10/2025 CBC W/DIF F HCT 40.8 % (based on docume nted legal sex) 34.0-4 5.0 Not Available [facility] (Lab) [address], [place], [address], 02/11/2025 13:44:37 02/11/20 25 02/10/2025 CBC W/DIF F MCV 89.7 fL 80.0-9 9.0 Not Available [facility] (Lab) [address], [place], [address], 02/11/2025 13:44:37 02/11/20 25 02/10/2025 CBC W/DIF F MCH 30.1 pg 27.0-3 4.0 Not Available [facility] (Lab) [address], [place], [address], 02/11/2025 13:44:37 02/11/20 25 02/10/2025 CBC W/DIF F MCHC 33.6 g/dL 32.0-3 5.5 Not Available [facility] (Lab) [address], [place], [address], 02/11/2025 13:44:37 02/11/20 25 02/10/2025 CBC W/DIF F RDW 12.8 % 11.0-1 5.0 Not Available [facility] (Lab) [address], [place], [address], 02/11/2025 13:44:37 02/11/20 25 02/10/2025 CBC W/DIF F plt 125 10'3/ uL 150-40 0 low Not Available [facility] (Lab) [address], [place], [address], 02/11/2025 13:44:37 02/11/20 25 02/10/2025 CBC W/DIF F MPV 13.5 fL 8.8-12 .1 high Not Available [facility] (Lab) [address], [place], [address], 02/11/2025 13:44:37 02/11/20 25 02/10/2025 CBC W/DIF F NRBC's 0.0 % 0.0 Not Available [facility] (Lab) [address], [place], [address], 02/11/2025 13:44:37 02/11/20 25 02/10/2025 CBC W/DIF F absolute NRBCs 0.0 10'3/ uL no refere nce range establ ished Not Available [facility] (Lab) [address], [place], [address], 02/11/2025 13:44:37 02/11/20 25 02/10/2025 CBC W/DIF F neutrophils 76.5 % 34.0-7 3.0 high Not Available [facility] (Lab) [address], [place], [address], 02/11/2025 13:44:37 02/11/20 25 02/10/2025 CBC W/DIF F lymphocytes 14.4 % 15.0-5 0.0 low Not Available [facility] (Lab) [address], [place], [address], 02/11/2025 13:44:37 02/11/20 25 02/10/2025 CBC W/DIF F monocytes 8.3 % 1.0-15 .0 Not Available [facility] (Lab) [address], [place], [address], 02/11/2025 13:44:37 02/11/20 25 02/10/2025 CBC W/DIF F eosinophils 0.3 % 0.0-8. 0 Not Available [facility] (Lab) [address] [place], [address], 02/11/2025 13:44:37 02/11/20 25 02/10/2025 CBC W/DIF F basophils 0.3 % 0.0-2. 0 Not Available [facility] (Lab) [address] [place], [address], 02/11/2025 13:44:37 02/11/20 25 02/10/2025 CBC W/DIF [...] separ ately if prese nt. Not Available [facility] (Lab) [address], [place], [address], 02/11/2025 13:44:37 02/11/20 25 02/10/2025 CBC W/DIF F absolute neutrophils 6.6 10'3/ uL 1.5-8. 0 Not Available [facility] (Lab) [address], [place], [address], 02/11/2025 13:44:37 02/11/20 25 02/10/2025 CBC W/DIF F absolute lymphocytes 1.3 10'3/ uL 1.0-4. 0 Not Available [facility] (Lab) [address], [place], [address], 02/11/2025 13:44:37 02/11/20 25 02/10/2025 CBC W/DIF F absolute monocytes 0.7 10'3/ uL 0.2-1. 0 Not Available [facility] (Lab) [address], [place], [address], 02/11/2025 13:44:37 02/11/20 25 02/10/2025 CBC W/DIF F absolute eosinophils 0.0 10'3/ uL 0.0-0. 6 Not Available [facility] (Lab) [address], [place], [address], 02/11/2025 13:44:37 02/11/20 25 02/10/2025 CBC W/DIF F absolute basophils 0.0 10'3/ uL 0.0-0. 3 Not Available [facility] (Lab) [address], [place], [address], 02/11/2025 13:44:37 02/11/20 25 02/10/2025 CBC W/DIF [...] carlosand book. nm.or g/gen derx Not Available [facility] (Lab) [address], [place], [address], 02/11/2025 13:44:37 02/11/20 25 02/10/2025 HIV 1/2 ANTIG EN/AN TIBOD Y, REFLE X CONFI RMATI ON HIV antigen/anti body Nonrea ctive nonrea ctive HIV-1 antig en and HIV-1 /HIV- 2 antib odies were not detec alfredo. No labor atory evide nce of HIV infec tion. Not Available [facility] (Lab) [address], [place], [address], 02/11/2025 13:44:38 02/11/20 25 02/10/2025 HEPAT ITIS B SURFA CE ANTIG EN hepatitis B surface antigen Non-re active non-re active This assay was perfo rmed using [employer] ratio n reage nts and test kits. Value s obtai evelyn with other assay metho ds or kits canno t be used inter collins eably . Not Available [facility] (Lab) [address], [place], [address], 02/11/2025 13:44:38 02/11/20 25 02/10/2025 HEPAT ITIS C ANTIB TIM SCREE N, REFLE X TO CONFI RMATI ON hepatitis C antibody Non-re active non-re active Antib odies to HCV Not Detec alfredo, does not exclu de the possi bilit y of expos ure to HCV. Not Available [facility] (Lab) [address], [place], [address], 02/11/2025 13:44:39 02/11/20 25 02/10/2025 RUBEL LA IGG ANTIB TIM, QUANT rubella antibodies, IgG Reacti ve reacti ve Not Available [facility] (Lab) [address], [place], [address], 02/11/2025 13:44:39 02/11/20 25 02/10/2025 RUBEL LA IGG ANTIB TIM, QUANT rubella antibodies, IgG quant 47.1 IU/mL >=10 Non-r eacti ve (Non- Immun e) <10 IU/mL React kvng (Immu ne) > or = 10 IU/mL Not Available [facility] (Lab) [address], [place], [address], 02/11/2025 13:44:39 02/11/20 25 02/10/2025 TYPE/ RH/SC REEN ABO/Rh type O POS Not Available [facility] (Lab) [address], [place], [address], 02/11/2025 13:44:40 02/11/20 25 02/10/2025 TYPE/ RH/SC REEN antibody screen NEG Not Available [facility] (Lab) [address], [place], [address], 02/11/2025 13:44:40 02/11/20 25 02/10/2025 TYPE/ RH/SC REEN exp date 2024 23:59 Not Available [facility] (Lab) [address], [place], [address], 02/11/2025 13:44:40 02/11/20 25 02/10/2025 HEMOG LOBIN [...] >8.0% Actio n sugge sted Not Available [facility] (Lab) [address], [place], [address], 02/11/2025 13:44:40 02/11/20 25 02/10/2025 RPR SCREE N, REFLE X TITER /CONF IRMAT ION RPR qualitative Nonrea ctive nonrea ctive Not Available [facility] (Lab) [address], [place], [address], 02/11/2025 13:44:41 02/11/20 25 02/10/2025 drug scree n, urine Amphetamines : negati ve Not Available [place] [address], [place], [address], 02/10/2025 12:55:20 02/11/20 25 02/10/2025 drug scree n, urine Cannabinoids : negati ve Not Available [place] [address], [place], [address], 02/10/2025 12:55:20 02/11/20 25 02/10/2025 drug scree n, urine Cocaine: negati ve Not Available [facility] [address], [place], [address], 02/10/2025 12:55:20 02/11/20 25 02/10/2025 drug scree n, urine Opiates: negati ve Not Available [facility] [address], [place], [address], 02/10/2025 12:55:20 02/11/20 25 02/10/2025 drug scree n, urine Barbiturates : negati ve Not Available [facility] [address], [place], [address], 02/10/2025 12:55:20 02/11/20 25 02/10/2025 drug scree n, urine Benzodiazepi john: negati ve Not Available [facility] [address], [place], [address], 02/10/2025 12:55:20 03/10/20 25 03/10/2025 CULTU RE: URINE result report SEE RESULT S BELOW Test: Cultu re: Urine Speci men Sourc e: Urine Voide d Speci men Type: Urine Speci men Date: [id number] Resul t Date: 20242 Resul t Statu s: Final resul t Abnor mal: No Resul ting Lab: [facility] [address] [facility] [address] Tel: CULTU RE ----- ----- ----- --- No growt h in 1 day (dete ction level of 10,00 0 colon ies / ml.) Not Available [facility] (Lab) [address] [place], [address], 03/11/2025 23:15:50 04/03/2004/03/2025 CBC W/DIF F WBC 12.9 10'3/ uL 3.5-10 .5 high Not Available [facility] (Lab) [address] [place], [address], 04/04/2025 04:39:51 04/03/20 25 04/03/2025 CBC W/DIF F RBC 4.33 10'6/ uL (based on docume nted legal sex) 3.80-5 .20 Not Available [facility] (Lab) [address], [place], [address], 04/04/2025 04:39:51 04/03/2004/03/2025 CBC W/DIF F HGB 13.2 g/dL (based on docume nted legal sex) 11.6-1 5.4 Not Available [facility] (Lab) [address], [place], [address], 04/04/2025 04:39:51 04/03/2004/03/2025 CBC W/DIF F HCT 40.2 % (based on docume nted legal sex) 34.0-4 5.0 Not Available [facility] (Lab) [address], [place], [address], 04/04/2025 04:39:51 04/03/2004/03/2025 CBC W/DIF F MCV 92.8 fL 80.0-9 9.0 Not Available [facility] (Lab) [address], [place], [address], 04/04/2025 04:39:51 04/03/2004/03/2025 CBC W/DIF F MCH 30.5 pg 27.0-3 4.0 Not Available [facility] (Lab) [address], [place], [address], 04/04/2025 04:39:51 04/03/2004/03/2025 CBC W/DIF F MCHC 32.8 g/dL 32.0-3 5.5 Not Available [facility] (Lab) [address], [place], [address], 04/04/2025 04:39:51 04/03/2004/03/2025 CBC W/DIF F RDW 13.0 % 11.0-1 5.0 Not Available [facility] (Lab) [address], [place], [address], 04/04/2025 04:39:51 04/03/20 25 04/03/2025 CBC W/DIF F plt 131 10'3/ uL 150-40 0 low Not Available [facility] (Lab) [address], [place], [address], 04/04/2025 04:39:51 04/03/20 25 04/03/2025 CBC W/DIF F MPV 13.9 fL 8.8-12 .1 high Not Available [facility] (Lab) [address], [place], [address], 04/04/2025 04:39:51 04/03/20 25 04/03/2025 CBC W/DIF F NRBC's 0.0 % 0.0 Not Available [facility] (Lab) [address], [place], [address], 04/04/2025 04:39:51 04/03/20 25 04/03/2025 CBC W/DIF F absolute NRBCs 0.0 10'3/ uL no refere nce range establ ished Not Available [facility] (Lab) [address], [place], [address], 04/04/2025 04:39:51 04/03/20 25 04/03/2025 CBC W/DIF F neutrophils 76.6 % 34.0-7 3.0 high Not Available [facility] (Lab) [address], [place], [address], 04/04/2025 04:39:51 04/03/2004/03/2025 CBC W/DIF F lymphocytes 14.2 % 15.0-5 0.0 low Not Available [facility] (Lab) [address], [place], [address], 04/04/2025 04:39:51 04/03/20 25 04/03/2025 CBC W/DIF F monocytes 7.6 % 1.0-15 .0 Not Available [facility] (Lab) [address] [place], [address], 04/04/2025 04:39:51 04/03/20 25 04/03/2025 CBC W/DIF F eosinophils 0.7 % 0.0-8. 0 Not Available [facility] (Lab) [address], [place], [address], 04/04/2025 04:39:51 04/03/20 25 04/03/2025 CBC W/DIF F basophils 0.4 % 0.0-2. 0 Not Available [facility] (Lab) [address], [place], [address], 04/04/2025 04:39:51 04/03/20 25 04/03/2025 CBC W/DIF [...] separ ately if prese nt. Not Available [facility] (Lab) [address], [place], [address], 04/04/2025 04:39:51 04/03/20 25 04/03/2025 CBC W/DIF F absolute neutrophils 9.9 10'3/ uL 1.5-8. 0 high Not Available [facility] (Lab) [address], [place], [address], 04/04/2025 04:39:51 04/03/20 25 04/03/2025 CBC W/DIF F absolute lymphocytes 1.8 10'3/ uL 1.0-4. 0 Not Available [facility] (Lab) [address] [place], [address], 04/04/2025 04:39:51 04/03/20 25 04/03/2025 CBC W/DIF F absolute monocytes 1.0 10'3/ uL 0.2-1. 0 Not Available [facility] (Lab) [address], [place], [address], 04/04/2025 04:39:51 04/03/2004/03/2025 CBC W/DIF F absolute eosinophils 0.1 10'3/ uL 0.0-0. 6 Not Available [facility] (Lab) [address], [place], [address], 04/04/2025 04:39:51 04/03/2004/03/2025 CBC W/DIF F absolute basophils 0.1 10'3/ uL 0.0-0. 3 Not Available [facility] (Lab) [address], [place], [address], 04/04/2025 04:39:51 04/03/2004/03/2025 CBC W/DIF F absolute immature granulocytes 0.1 10'3/ uL 0.00-0 .10 Refer ence range s for nonbi nary/ inter sex or unspe cifie d gende r patie nts have not been estab lishe d. [facility] range s estab lishe d for cisge nder patie nts and evalu ate in the clini randal kiera xt of the indiv idual patie nt: https ://misael calzada book. nm.or g/gen derx Not Available [facility] (Lab) [address], [place], [address], 04/04/2025 04:39:51 05/02/2005/02/2025 CULTU RE: URINE result report SEE RESULT S BELOW Test: Cultu re: Urine Speci men Sourc e: Urine - Clean Catch Speci men Type: Urine Speci men Date: 150 Resul t Date: 0404 Resul t Statu s: Final resul t Abnor mal: No Resul ting Lab: [facility] [address] [facility] [address] Tel: [phone] CULTU RE ----- ----- ----- --- No growt h in 1 day (dete ction level of 10,00 0 colon ies / ml.) Not Available [facility] (Lab) [address], [place], [address], 05/04/2025 05:09:17 05/30/20 25 05/30/2025 CBC W/DIF F WBC 11.9 10'3/ uL 3.5-10 .5 high Not Available [facility] (Lab) [address], [place], [address], 05/31/2025 12:26:07 05/30/20 25 05/30/2025 CBC W/DIF F RBC 3.98 10'6/ uL (based on docume nted legal sex) 3.80-5 .20 Not Available [facility] (Lab) [address], [place], [address], 05/31/2025 12:26:07 05/30/20 25 05/30/2025 CBC W/DIF F HGB 12.4 g/dL (based on docume nted legal sex) 11.6-1 5.4 Not Available [facility] (Lab) [address], [place], [address], 05/31/2025 12:26:07 05/30/20 25 05/30/2025 CBC W/DIF F HCT 36.8 % (based on docume nted legal sex) 34.0-4 5.0 Not Available [facility] (Lab) [address], [place], [address], 05/31/2025 12:26:07 05/30/20 25 05/30/2025 CBC W/DIF F MCV 92.5 fL 80.0-9 9.0 Not Available [facility] (Lab) [address], [place], [address], 05/31/2025 12:26:07 05/30/20 25 05/30/2025 CBC W/DIF F MCH 31.2 pg 27.0-3 4.0 Not Available [facility] (Lab) [address], [place], [address], 05/31/2025 12:26:07 05/30/20 25 05/30/2025 CBC W/DIF F MCHC 33.7 g/dL 32.0-3 5.5 Not Available [facility] (Lab) [address], [place], [address], 05/31/2025 12:26:07 05/30/20 25 05/30/2025 CBC W/DIF F RDW 13.4 % 11.0-1 5.0 Not Available [facility] (Lab) [address], [place], [address], 05/31/2025 12:26:07 05/30/20 25 05/30/2025 CBC W/DIF F plt 113 10'3/ uL 150-40 0 low Not Available [facility] (Lab) [address], [place], [address], 05/31/2025 12:26:07 05/30/20 25 05/30/2025 CBC W/DIF F MPV 13.8 fL 8.8-12 .1 high Not Available [facility] (Lab) [address], [place], [address], 05/31/2025 12:26:07 05/30/20 25 05/30/2025 CBC W/DIF F NRBC's 0.0 % 0.0 Not Available [facility] (Lab) [address], [place], [address], 05/31/2025 12:26:07 05/30/20 25 05/30/2025 CBC W/DIF F absolute NRBCs 0.0 10'3/ uL no refere nce range establ ished Not Available [facility] (Lab) [address], [place], [address], 05/31/2025 12:26:07 05/30/20 25 05/30/2025 CBC W/DIF F neutrophils 79.4 % 34.0-7 3.0 high Not Available [facility] (Lab) [address] [place], [address], 05/31/2025 12:26:07 05/30/20 25 05/30/2025 CBC W/DIF F lymphocytes 10.8 % 15.0-5 0.0 low Not Available [facility] (Lab) [address], [place], [address], 05/31/2025 12:26:07 05/30/20 25 05/30/2025 CBC W/DIF F monocytes 7.7 % 1.0-15 .0 Not Available [facility] (Lab) [address], [place], [address], 05/31/2025 12:26:07 05/30/20 25 05/30/2025 CBC W/DIF F eosinophils 0.8 % 0.0-8. 0 Not Available [facility] (Lab) [address] [place], [address], 05/31/2025 12:26:07 05/30/20 25 05/30/2025 CBC W/DIF F basophils 0.4 % 0.0-2. 0 Not Available [facility] (Lab) [address] [place], [address], 05/31/2025 12:26:07 05/30/20 25 05/30/2025 CBC W/DIF [...] separ ately if prese nt. Not Available [facility] (Lab) [address] [place], [address], 05/31/2025 12:26:07 05/30/20 25 05/30/2025 CBC W/DIF F absolute neutrophils 9.5 10'3/ uL 1.5-8. 0 high Not Available [facility] (Lab) [address], [place], [address], 05/31/2025 12:26:07 05/30/20 25 05/30/2025 CBC W/DIF F absolute lymphocytes 1.3 10'3/ uL 1.0-4. 0 Not Available [facility] (Lab) [address], [place], [address], 05/31/2025 12:26:07 05/30/20 25 05/30/2025 CBC W/DIF F absolute monocytes 0.9 10'3/ uL 0.2-1. 0 Not Available [facility] (Lab) [address], [place], [address], 05/31/2025 12:26:07 05/30/20 25 05/30/2025 CBC W/DIF F absolute eosinophils 0.1 10'3/ uL 0.0-0. 6 Not Available [facility] (Lab) [address], [place], [address], 05/31/2025 12:26:07 05/30/20 25 05/30/2025 CBC W/DIF F absolute basophils 0.1 10'3/ uL 0.0-0. 3 Not Available [facility] (Lab) [address], [place], [address], 05/31/2025 12:26:07 05/30/20 25 05/30/2025 CBC W/DIF F absolute immature granulocytes 0.1 10'3/ uL 0.00-0 .10 Refer ence range s for nonbi nary/ inter sex or unspe cifie d gende r patie nts have not been estab lishe d. [facility] range s estab lishe d for cisge nder patie nts and evalu ate in the clini randal kiera xt of the indiv idual patie nt: [email or web address] :[email or web address] [email or web address].or g/gen derx Not Available [facility] (Lab) [address], [place], [address], 05/31/2025 12:26:07 05/30/20 25 05/30/2025 HIV 1/2 ANTIG EN/AN TIBOD Y, REFLE X CONFI RMATI ON HIV antigen/anti body Nonrea ctive nonrea ctive HIV-1 antig en and HIV-1 /HIV- 2 antib odies were not detec alfredo. No labor atory evide nce of HIV infec tion. Not Available [facility] (Lab) [address], [place], [address], 05/31/2025 12:26:07 05/30/20 25 05/30/2025 GTT - GESTA REGAN L SCREE N, ACOG OB glucose, 1 hour screen 82 mg/dL 70-135 Not Available [facility] (Lab) [address], [place], [address], 05/31/2025 12:26:08 05/30/20 25 05/30/2025 RPR SCREE N, REFLE X TITER /CONF IRMAT ION RPR qualitative Nonrea ctive nonrea ctive Not Available [facility] (Lab) [address], [place], [address], 05/31/2025 12:26:08 06/30/20 25 06/30/2025 CBC W/DIF F WBC 11.6 10'3/ uL 3.5-10 .5 high Not Available [facility] (Lab) [address], [place], [address], 07/01/2025 02:43:32 06/30/2006/30/2025 CBC W/DIF F RBC 3.97 10'6/ uL (based on docume nted legal sex) 3.80-5 .20 Not Available [facility] (Lab) [address], [place], [address], 07/01/2025 02:43:32 06/30/20 25 06/30/2025 CBC W/DIF F HGB 12.4 g/dL (based on docume nted legal sex) 11.6-1 5.4 Not Available [facility] (Lab) [address], [place], [address], 07/01/2025 02:43:32 06/30/20 25 06/30/2025 CBC W/DIF F HCT 35.3 % (based on docume nted legal sex) 34.0-4 5.0 Not Available [facility] (Lab) [address], [place], [address], 07/01/2025 02:43:32 06/30/20 25 06/30/2025 CBC W/DIF F MCV 88.9 fL 80.0-9 9.0 Not Available [facility] (Lab) [address], [place], [place], [address], 07/01/2025 02:43:32 06/30/20 25 06/30/2025 CBC W/DIF F MCH 31.2 pg 27.0-3 4.0 Not Available [facility] (Lab) [address], [place], [address], 07/01/2025 02:43:32 06/30/20 25 06/30/2025 CBC W/DIF F MCHC 35.1 g/dL 32.0-3 5.5 Not Available [facility] (Lab) [address], [place], [address], 07/01/2025 02:43:32 06/30/20 25 06/30/2025 CBC W/DIF F RDW 13.2 % 11.0-1 5.0 Not Available [facility] (Lab) [address], [place], [address], 07/01/2025 02:43:32 06/30/20 25 06/30/2025 CBC W/DIF F plt 106 10'3/ uL 150-40 0 low Not Available [facility] (Lab) [address], [place], [address], 07/01/2025 02:43:32 06/30/20 25 06/30/2025 CBC W/DIF F MPV 13.2 fL 8.8-12 .1 high Not Available [facility] (Lab) [address], [place], [address], 07/01/2025 02:43:32 06/30/20 25 06/30/2025 CBC W/DIF F NRBC's 0.0 % 0.0 Not Available [facility] (Lab) [address], [place], [address], 07/01/2025 02:43:32 06/30/20 25 06/30/2025 CBC W/DIF F absolute NRBCs 0.0 10'3/ uL no refere nce range establ ished Not Available [facility] (Lab) [address], [place], [address], 07/01/2025 02:43:32 06/30/20 25 06/30/2025 CBC W/DIF F neutrophils 77.2 % 34.0-7 3.0 high Not Available [facility] (Lab) [address], [place], [address], 07/01/2025 02:43:32 06/30/20 25 06/30/2025 CBC W/DIF F lymphocytes 13.2 % 15.0-5 0.0 low Not Available [facility] (Lab) [address], [place], [address], 07/01/2025 02:43:32 06/30/20 25 06/30/2025 CBC W/DIF F monocytes 7.5 % 1.0-15 .0 Not Available [facility] (Lab) [address], [place], [address], 07/01/2025 02:43:32 06/30/20 25 06/30/2025 CBC W/DIF F eosinophils 0.9 % 0.0-8. 0 Not Available [facility] (Lab) [address], [place], [address], 07/01/2025 02:43:32 06/30/20 25 06/30/2025 CBC W/DIF F basophils 0.4 % 0.0-2. 0 Not Available [facility] (Lab) [address], [place], [address], 07/01/2025 02:43:32 06/30/20 25 06/30/2025 CBC W/DIF [...] separ ately if prese nt. Not Available [facility] (Lab) [address], [place], [address], 07/01/2025 02:43:32 06/30/20 25 06/30/2025 CBC W/DIF F absolute neutrophils 8.9 10'3/ uL 1.5-8. 0 high Not Available [facility] (Lab) [address], [place], [address], 07/01/2025 02:43:32 06/30/20 25 06/30/2025 CBC W/DIF F absolute lymphocytes 1.5 10'3/ uL 1.0-4. 0 Not Available [facility] (Lab) [address], [place], [address], 07/01/2025 02:43:32 06/30/20 25 06/30/2025 CBC W/DIF F absolute monocytes 0.9 10'3/ uL 0.2-1. 0 Not Available [facility] (Lab) [address] [place], [address], 07/01/2025 02:43:32 06/30/20 25 06/30/2025 CBC W/DIF F absolute eosinophils 0.1 10'3/ uL 0.0-0. 6 Not Available [facility] (Lab) [address], [place], [address], 07/01/2025 02:43:32 06/30/20 25 06/30/2025 CBC W/DIF F absolute basophils 0.1 10'3/ uL 0.0-0. 3 Not Available [facility] (Lab) [address], [place], [address], 07/01/2025 02:43:32 06/30/2006/30/2025 CBC W/DIF F absolute immature granulocytes 0.1 10'3/ uL 0.00-0 .10 Refer ence range s for nonbi nary/ inter sex or unspe cifie d gende r patie nts have not been estab lishe d. [facility] for range s estab lishe d for cisge nder patie nts and evalu ate in the clini randal kiera xt of the indiv idual patie nt: https ://misael calzada book. nm.or g/gen derx Not Available [facility] (Lab) [address], [place], [address], 07/01/2025 02:43:32 07/12/2007/12/2025 CBC W/DIF F WBC 13.2 10'3/ uL 3.5-10 .5 high Not Available [facility] (Lab) [address], [place], [address], 07/13/2025 05:59:18 07/12/2007/12/2025 CBC W/DIF F RBC 3.94 10'6/ uL (based on docume nted legal sex) 3.80-5 .20 Not Available [facility] (Lab) [address], [place], [address], 07/13/2025 05:59:18 11/12/20 25 07/12/2025 CBC W/DIF F HGB 11.9 g/dL (based on docume nted legal sex) 11.6-1 5.4 Not Available [facility] (Lab) [address], [place], [address], 07/13/2025 05:59:18 07/12/20 25 07/12/2025 CBC W/DIF F HCT 34.9 % (based on docume nted legal sex) 34.0-4 5.0 Not Available [facility] (Lab) [address], [place], [address], 07/13/2025 05:59:18 07/12/20 25 07/12/2025 CBC W/DIF F MCV 88.6 fL 80.0-9 9.0 Not Available [facility] (Lab) [address], [place], [address], 07/13/2025 05:59:18 07/12/20 25 07/12/2025 CBC W/DIF F MCH 30.2 pg 27.0-3 4.0 Not Available [facility] (Lab) [address], [place], [address], 07/13/2025 05:59:18 07/12/20 25 07/12/2025 CBC W/DIF F MCHC 34.1 g/dL 32.0-3 5.5 Not Available [facility] (Lab) [address], [place], [address], 07/13/2025 05:59:18 07/12/20 25 07/12/2025 CBC W/DIF F RDW 13.0 % 11.0-1 5.0 Not Available [facility] (Lab) [address], [place], [address], 07/13/2025 05:59:18 07/12/20 25 07/12/2025 CBC W/DIF F plt 110 10'3/ uL 150-40 0 low Not Available [facility] (Lab) [address], [place], [address], 07/13/2025 05:59:18 07/12/20 25 07/12/2025 CBC W/DIF F MPV 12.9 fL 8.8-12 .1 high Not Available [facility] (Lab) [address], [place], [address], 07/13/2025 05:59:18 07/12/20 25 07/12/2025 CBC W/DIF F NRBC's 0.0 % 0.0 Not Available [facility] (Lab) [address], [place], [address], 07/13/2025 05:59:18 07/12/20 25 07/12/2025 CBC W/DIF F absolute NRBCs 0.0 10'3/ uL no refere nce range establ ished Not Available [facility] (Lab) [address], [place], [address], 07/13/2025 05:59:18 07/12/20 25 07/12/2025 CBC W/DIF F neutrophils 75.1 % 34.0-7 3.0 high Not Available [facility] (Lab) [address], [place], [address], 07/13/2025 05:59:18 07/12/20 25 07/12/2025 CBC W/DIF F lymphocytes 12.6 % 15.0-5 0.0 low Not Available [facility] (Lab) [address], [place], [address], 07/13/2025 05:59:18 07/12/20 25 07/12/2025 CBC W/DIF F monocytes 9.7 % 1.0-15 .0 Not Available [facility] (Lab) [address], [place], [address], 07/13/2025 05:59:18 07/12/20 25 07/12/2025 CBC W/DIF F eosinophils 0.9 % 0.0-8. 0 Not Available [facility] (Lab) [address], [place], [address], 07/13/2025 05:59:18 07/12/20 25 07/12/2025 CBC W/DIF F basophils 0.5 % 0.0-2. 0 Not Available [facility] (Lab) [address], [place], [address], 07/13/2025 05:59:18 07/12/20 25 07/12/2025 CBC W/DIF [...] separ ately if prese nt. Not Available [facility] (Lab) [address] [place], [address], 07/13/2025 05:59:18 07/12/20 25 07/12/2025 CBC W/DIF F absolute neutrophils 9.9 10'3/ uL 1.5-8. 0 high Not Available [facility] (Lab) [address], [place], [address], 07/13/2025 05:59:18 07/12/20 25 07/12/2025 CBC W/DIF F absolute lymphocytes 1.7 10'3/ uL 1.0-4. 0 Not Available [facility] (Lab) [address], [place], [address], 07/13/2025 05:59:18 07/12/20 25 07/12/2025 CBC W/DIF F absolute monocytes 1.3 10'3/ uL 0.2-1. 0 high Not Available [facility] (Lab) [address], [place], [address], 07/13/2025 05:59:18 07/12/20 25 07/12/2025 CBC W/DIF F absolute eosinophils 0.1 10'3/ uL 0.0-0. 6 Not Available [facility] (Lab) [address], [place], [address], 07/13/2025 05:59:18 07/12/20 25 07/12/2025 CBC W/DIF F absolute basophils 0.1 10'3/ uL 0.0-0. 3 Not Available [facility] (Lab) [address], [place], [address], 07/13/2025 05:59:18 07/12/20 25 07/12/2025 CBC W/DIF [...] the indiv idual patie nt: https ://la elsi book. nm.or g/gen derx Not Available [facility] (Lab) [address], [place], [address], 07/13/2025 05:59:18 02/11/20 25 02/10/2025 , ovi soares nucha l trans lucen No observ ation record ed. [facility] [address], [place], [address], 02/10/2025 18:38:42 02/11/2002/10/2025 , tony tsai w-up No observ ation record ed. [email or web address] [facility] [address] [address], [place], [address], 02/13/2025 09:20:03 04/03/2004/03/2025 US, obste tric, 2nd or 3rd trime ster No observ ation record ed. [email or web address] [place] [address], [place], [address], 04/03/2025 18:43:20 04/03/20 25 04/03/2025 US, obste tric, 2nd or 3rd trime ster No observ ation record ed. [facility] [address], [place], [address], 04/05/2025 17:47:52 04/21/20 25 04/21/2025 non-s tress test No observ ation record ed. [address], [address], 04/24/2025 12:03:28 05/02/20 25 05/02/2025 US, obste tric, follo w-up No observ [facility] ed. [facility] [address], [place], [address], 05/02/2025 12:58:26 05/02/20 25 05/02/2025 US, obste tric, follo w-up No observ ation record ed. ROBERT [facility] [address], [place], [address], 05/03/2025 18:13:01 05/29/20 25 05/29/2025 non-s tress test No observ ation record ed. [address], [address], 05/31/2025 15:39:22 06/20/2006/20/2025 imagi ng/di agnos tic resul t No observ ation record ed. [facility] [address] [place], [address], 06/20/2025 13:33:45 06/20/20 25 06/20/2025 US, obste tric, follo w-up No observ ation record ed. [email or web address] [facility] [address] [facility] [place], [address], 06/27/2025 17:32:46 07/03/20 25 07/03/2025 non-s tress test No observ ation record ed. [email or web address] [facility] [address], [place], [address], 07/19/2025 15:34:42 07/03/20 25 07/03/2025 imagi ng/di agnos tic resul t No observ ation record ed. [facility] [address] [facility] [address], [place], [address], 07/03/2025 11:55:37 Result Notes None recorded. Problems Name Problem SNOMED Code Status Onset Date Resolution Date Notes Provider Name and Address Organization Details Recorded Time Anxiety 72464816 Active 2024 Kristen Ruffin [facility] 11:01:06 27676214 Active 2024 Aleah Bedolla [facility] 11:57:32 Platelet count below reference range 119431184 Active 2024 Referral faxed to [facility] 06/01 scheduled 06/20 0900 Level II us and consult Zoey Tarango [facility] 11:50:53 Problem Notes None recorded. [...] Updated DateTime 07/12/2025 170.18 cm 29 kg/m2 26672.59 g 120/78 mm[Hg] Isabel Albertshelly [facility] 07/12/2025 14:04:56 Social History Question Answer Notes LastModified by Organizat ion Details LastModified Time Tobacco Smoking Status Never Smoker Kristen Augustin sánchez, [facility] 01/13/2025 11:05:22 If You Are , What Was Your Level Of Alcohol Consumption Prior To ? Occasional Information not available 01/13/2025 Are You Blind Or Do You Have Difficulty Seeing? No [email or web address] Information n ot available 01/13/2025 What Is Your Level Of Caffeine Consumption? Occasional [email or web address] Information not available 01/13/2025 In The 14 Days Before Symptom Onset, Have You Had Close Contact With A Laboratory-confirm ed COVID-19 While That Case Was Ill? No [email or web address] Information n ot available 01/13/2025 In The 14 Days Before Symptom Onset, Have You Had Close Contact With A Person Who Is Under Investigation For COVID-19 While That Person Was Ill? No Information not available 01/13/2025 Have You Been To An Area Known To Be High Risk For COVID-19? No Information not available 01/13/2025 Are You Deaf Or Do You Have Serious Difficulty Hearing? No [email or web address] Information not available 01/13/2025 Do You Have Smoke And Carbon Monoxide Detectors In Your Home? Yes [email or web address] Information not available 01/13/2025 Do You Use Sunscreen Routinely? Yes [email or web address] Information not available 01/13/2025 Has Tobacco Cessation Counseling Been Provided? No [email or web address] Information not available 01/13/2025 Have You Used IV Drugs? No [email or web address] Information not available 01/13/2025 Do You Have Difficulty Walking Or Climbing Stairs? No [email or web address] Information not available 01/13/2025 Sex: Unknown Functional Status Question Answer Note LastModified by Organizat ion Details LastModified Time Do you use any illicit or recreational drugs? No [email or web address] Information not available 01/13/2025 Do you or have you ever used any other forms of tobacco or nicotine? Yes [email or web address] Information not available 01/13/2025 What is your level of alcohol consumption? None [email or web address] Information not available 01/13/2025 Are you able to walk independently without assistance or assistive devices? YESWOREST [email or web address] Information not available 01/13/2025 Are you able to care for yourself independently? Yes [email or web address] Information not available 01/13/2025 Do you have difficulty dressing, bathing, grooming, or toileting? No [email or web address] Information not available 01/13/2025 Do you or have you ever used e-cigarettes or vape? Former user of electronic cigarettes [email or web address] Information not available 01/13/2025 Mental Status None recorded. Family History Relationship Description Onset Age of this Age Resolved Age Notes LastModified by Organization Details LastModified Time Unspecified Relation Family history unknown [email or web address] Not available 2024 13:48:03 Paternal Grandfather Malignant neoplasm of prostate [email or web address] Not available 07/02 11:19:15 Maternal Grandfather Malignant neoplasm of lung [email or web address] Not available 01/13 11:03:40 Maternal Grandmother Malignant neoplasm of pancreas [email or web address] Not available 07/02 11:19:15 Maternal Aunt Malignant neoplasm of breast [email or web address] Not available 2024 13:48:03 Father Leukemia [email or web address] Not availa ble 07/24/2025 11:19:16 Mother Diabetes mellitus [email or web address] Not available 01/13 11:04:57 Medical History Condition [...] ICD10 Code Diagnosis IMO Codes Diagnosis Note [id number] JOLIE TOMLINSON MD [place] [address] [address] 06/13/2025 15:20:18 06/13/2025 16:44:44 Platelet count below reference range 758239519 D69.6 16920946 - plt 125>131>11 3- MFM consult Gestation period, 30 weeks 83584877 Z3A.30 [id number] JOLIE TOMLINSON MD [place] [address] [place] [address] 06/30/2025 11:40:05 06/30/2025 12:44:02 Platelet count below reference range 681492386 D69.6 02854603 - plt 125>131>11 3- MFM consult Gestation period, 32 weeks 3731262 Z3A.32 2394555 - continue PNV [id number] JOLIE TOMLINSON MD [place] [address] [place] [address] 07/12/2025 13:47:56 07/14/2025 11:51:27 Thrombocytopenic disorder 707268624 D69.6 45245 - plt 125>131>77 - repeat today- [facility] consult Gestation period, 34 weeks 02488539 Z3A.34 0027653 - continue [facility]NV Health Concerns Section Related Observation LastModified by Organization Detai ls LastModified Time None Recorded Concern Status LastModified by Organization Details LastModified Time None Recorded Payers Encounter Date Sequence Insurance Name Policy Number Policy Marie Covered Member ID Marie Member ID Guarantor Name 07/12/2025 2 [place] [employer] Gabby Jose [id number] Kya Kev 07/12/2025 1 [place] [id number] Kya Angulo [id number] Kya Angulo Notes Date Note Type Note Provider Name and Address Organization Details Recorded Time 07/12/2025 text/html Generic HPI TemplateReported by Patient JOLIE TOMLINSON MD [address], [place], [address], [facility] 07/14/2025 11:42:33 OBGyn Episode Ob Episode Information Episode Created Date Number of Fetuses Patient Bloodtype Patient rh Status Prepregnancy Weight lbs Domestic Partner Domestic Partner Phone Father Name Vehicle Inspector Status 02/11/20 25 1 O Positive 150 Jovany Meierk OPEN Fetus Data First Name Last Name Admitted to NICU Weight (g) Sex Living Outcome Pediatric Complications Fetus ID Race Codes Race Delivery Type [id number] Problems Problem Notes RSV vaccine received 07/04/25 . Problem Name Start Date End Date Resolution Snomed Code Not e Platelet count below reference range 06/01/2025 [id number] Referral fax ed to [facility] 06/01 scheduled 06/20 09 Level II us [...] Date Ultra Sound Latest Days Gestation 0 [email or web address] 02/10/2025 08/21/20 25 0 Pre- Flowsheet Flowsheet Date 02/10/2025 [place] Score Blood Edema Fundus Height Fundus Units Glucose Ketones Leukocytes Nitrite Labor Signs Protein Cervic Dilation Cervic Effacement Cervic Station Type Weight in lbs Pre/Post Dialysis Refused Weight 153.463994644768 BP Diastolic BP Location Tested BP Systolic BP Type 77 L arm 122 sitting Fetus Heart Rate Present A Present Fetus Movement Comments Patient presents to health system care. otherwise uncomplicated. No bleeding or cramping. [...] Weight in lbs Pre/Post Dialysis Refused Weight 156.429269689757 BP Diastolic BP Location Tested BP Systolic [...] Weight in lbs Pre/Post Dialysis Refused Weight 160.718828395743 BP Diastolic BP Location Tested BP Systolic [...] Weight in lbs Pre/Post Dialysis Refused Weight 165.899634779892 BP Diastolic BP Location Tested BP Systolic [...] Type Weight in lbs Pre/Post Dialysis Refused 176.099052037149 BP Diastolic BP Location Tested BP Systolic BP Type 78 L arm 118 sitting Fetus Heart Rate Present A 150 Fetus Movement A Yes Comments Had an episode of DFM yester day, went to [place] and had negative workup. No cramping or bleeding. GCT and labs today, will draw CBC as well. Discussed Tdap, RSV, and flu vaccines. RTC 2 weeks. Flowsheet Date 06/13/2025 Kirkland Score Blood Edema Fundus Height Fundus Units Glucose Ketones Leukocytes Nitrite Labor Signs Protein Cervic Dilation Cervic Effacement Cervic Station Type Weight in lbs Pre/Post Dialysis Refused 181.335315471283 BP Diastolic BP Location Tested BP Systolic [...] Weight in lbs Pre/Post Dialysis Refused Weight 178.622440886452 BP Diastolic BP Location Tested BP Systolic BP Type 78 L arm 112 sitting Fetus Heart Rate Present A 140 Fetus Movement A Yes Comments Good movement. No cram ping or bleeding. Saw MFM, recommend platelet counts every visit. [employer] appointment next week to determine if autoimmune vs gestational. EFW 92%, AC 93%; discussed 39 week induction, plan for 12/15 PM. Preadmission scheduled. RSV vaccine discussed. RTC 2 weeks. Flowsheet Date 07/12/2025 Kirkland Score Blood Edema Fundus Height Fundus Units Glucose Ketones Leukocytes Nitrite Labor Signs Protein Cervic Dilation Cervic Effacement Cervic Station Type Weight in lbs Pre/Post Dialysis Refused Weight 185.610771551275 BP Diastolic BP Location Tested BP Systolic [...] Weight in lbs Pre/Post Dialysis Refused Weight 186.749230318949 BP Diastolic BP Location Tested BP Systolic [...]
--- OUTSIDE RECORDS SUMMARY | 2025-07-26 09:45 | XMS_ITS | Encounter Summary ---
Author Organization [facility] Address [address] [facility] [place] [address] Care Team Providers Care Fish Filleter Name Role Phone Ale Cueva MD Primary Care Provider [phone] Ale Cueva MD Unavailable [phone] Reason for Referral * Consultation (Routine) - Authorized Specialty Diagnoses / Procedures Referred By Contac t Referred To Contact Maternal Medicine Diagnoses Low serum vitamin B12 Thrombocytopenia affecting , antepartum (HCC) 36 weeks gestation of (HCC) Supervision of high-risk of young primigravida ([facility]) Encounter for ultrasound to assess growth ([facility]) Leno Steele MD [address] [facility] [place] [address] Phone: tel: fax: [facility] [address] [place] [address] Phone: tel: fax: Referral ID Status Reason Start Date Expiration Date Visits Requested Visits Authorized [id number] Authorized Specialty Services Required 5 07/18/2026 3 3 PILOT * Procedure (Routine) - Pending Review Specialty Diagnoses / Procedures Referred By Contac t Referred To Contact Maternal Medicine Diagnoses Low serum vitamin B12 Thrombocytopenia affecting , antepartum (HCC) 36 weeks gestation of (HCC) Supervision of high-risk of young primigravida ([facility]) Encounter for ultrasound to assess growth ([facility]) Procedures Sonogram - Complete Leno Steele MD [address] [facility] [place] [address] Phone: tel: fax: [facility] [address] [place] [address] Phone: tel: fax: Referral ID Status Reason Start Date Expiration Date V isits Requested Visits Authorized [id number] Pending Review 07/18/2025 07/18/2026 1 1 PILOT Reason for Visit * Reason Comments Ultrasound Maternal Medicine Follow-up * Consultation (Routine) - Authorized Specialty Diagnoses / Procedures Referred By Contac t Referred To Contact Maternal Medicine Diagnoses Low serum vitamin B12 Thrombocytopenia affecting , antepartum (HCC) 36 weeks gestation of (HCC) Supervision of high-risk of young primigravida (HCC) Encounter for ultrasound to assess growth ([facility]) Leno Steele MD [address] [facility] [place] [address] Phone: tel: fax: [facility] [address] [place] [address] Phone: tel: fax: Referral ID Status Reason Start Date Expiration Date Visits Requested Visits Authorized [id number] Authorized Specialty Services Required 07/18/2026 3 3 Encounter Details Date Type Department Care Team (Late st Contact Info) Description 07/26/2025 9:45 AM CAR PILOT Hospital Encounter [facility] [address] [place] [address] Odilon Oquendo MD [address] [phone] Social History Tobacco Use Types Packs/Day Years [...] care, and heating? Not very hard 07/07/2025 [facility] [employer] [facility] - Occupational Stress [...] any time in the past 12 m [facility], were you homeless or living in a assisted (including now)? 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 Not on file Not on file documented as of this encounter Plan of Treatment Upcoming Encounters Date Type Department Care Team (Late st Contact Info) Description 07/26/2025 9:00 AM CAR PILOT Appointment [facility] [address] [place] [address] Odilon Oquendo MD [address] [phone] 08/02/2025 7:30 AM CAR PILOT Hospital Encounter [facility] [address] [place] [address] 08/03/2025 9:00 AM CAR PILOT Office Visit [facility] - Hematology/Oncology [address] [place] [address] Lauren Cedeno MD [address] [place] [phone] Scheduled Orders Name Type Priority Associated Diagnoses Orde r Schedule Sonogram - Complete [facility] Routine Low serum vitamin B12 Thrombocytopenia affecting , antepartum (HCC) 36 weeks gestation of (HCC) Supervision of high-risk of young primigravida ([facility]) Encounter for ultrasound to assess growth (HCC) 1 Occurrences starting 07/18/2025 until 07/18/2026 Scheduled Referrals Name Type Priority Associated Diagnoses Orde r Schedule AMB REFERRAL TO MATERNAL- MEDICINE Outpatient Referral Routine Low serum vitamin B12 Thrombocytopenia affecting , antepartum (HCC) 36 weeks gestation of (HCC) Supervision of high-risk of young primigravida ([facility]) Encounter for ultrasound to assess growth (HCC) 1 Occurrences starting 07/18/2025 until 07/18/2026 documented as of this encounter Visit Diagnoses [...] (HCC) documented in this encounter Care Teams Fish Filleter Relationship Specialty Start Date End Date Ale Cueva MD [address] [facility] [address] [place] [address] PCP - General 02/03/18 Ale Cueva MD [address] [facility] [address] [place] [address] Pediatrics 02/03/18 documented as of this encounter
== END 2025-07-26 07:28 | disposition home or self-care (01) ==
PROVIDERS: PCP Obstetrics & Gynecology
DX: R16.1 Splenomegaly, not elsewhere classified (principal); D69.6 Thrombocytopenia, unspecified
CPT/HCPCS: 76705

== ENCOUNTER 2025-07-26 10:36 | Outpatient (CLI) | payer BC, OTHER, SELFPAY ==
--- OUTSIDE RECORDS SUMMARY | 2025-07-26 08:49 | XMS_ITS | Encounter Summary ---
Author Organization [facility] Address [address] [facility] [place] [address] Care Team Providers Care Desulfurizer Machine Name Role Phone Ale Cueva MD Primary Care Provider [phone] Ale Cueva MD Unavailable [phone] Reason for Referral * (Routine) - Open Specialty Diagnoses / Procedures Referred By Contac t Referred To Contact Diagnoses Low serum vitamin B12 Thrombocytopenia affecting , antepartum (HCC) 37 weeks gestation of (HCC) Supervision of high-risk of young primigravida ([facility]) Encounter for ultrasound to assess growth ([facility]) Procedures Sonogram - Complete Leno Steele MD [address] [place] [address] Phone: tel: fax: Referral ID Status Reason Start Date Expiration Date Visits Re quested Visits Authorized [id number] Open 2025 2026 1 1 NED GLASS JOINER Reason for Visit * Consultation (Routine) - Closed Specialty Diagnoses / Procedures Referred By Contac t Referred To Contact Maternal Medicine Diagnoses Low serum vitamin B12 Thrombocytopenia affecting , antepartum (HCC) 36 weeks gestation of (HCC) Supervision of high-risk of young primigravida ([facility]) Encounter for ultrasound to assess growth ([facility]) Leno Steele MD [address] [place] [address] Phone: tel: fax: [facility] [address] [place] [address] Phone: tel: fax: Referral ID Status Reason Start Date Expiration Date V isits Requested Visits Authorized [id number] Closed Specialty Services Required 07/18/2025 07/18/2026 3 3 Encounter Details Date Type Department Care Team (Late st Contact Info) Description 07/26/2025 8:49 AM STAINED GLASS JOINER Hospital Encounter [facility] M[facility] & Care [address] [place] [address] Odilon Oquendo MD [address] [address] Social History Tobacco Use Types Packs/Day Years Used Date Smoking Tobacco: Never Smokeless Tobacco: Never Alcohol Use Standard [...] care, and heating? Not very hard 07/07/2025 [facility] of Occupat ional Health - Occupational Stress [...] any time in the past 12 m [facility], were you homeless or living in a prison (including now)? No 07/07/2025 Estimated Date of Delivery Comme nts Yes 08/21/2025 Based on last me nstrual period of 11/14/2024 Sex and Gender Information Value Date Recorded Sex Assigned at Female 07/07/2025 8:32 AM STAINED GLASS JOINER Legal Sex Female 5:41 AM STAINED GLASS JOINER Gender Identity Female 07/07/2025 8:32 AM STAINED GLASS JOINER Sexual Orientation Straight 07/07/2025 8: 32 AM STAINED GLASS JOINER Occupation Industry Job Start Date Job End Date [employer] Not on file Not on file Not on file documented as of this encounter Plan of Treatment Upcoming Encounters Date Type Department Care Team (Late st Contact Info) Description 08/02/2025 7:30 AM STAINED GLASS JOINER Hospital Encounter [facility] [address] [place] [address] 08/03/2025 9:00 AM STAINED GLASS JOINER Office Visit [facility] - Hematology/Oncology [address] [place] [address] Lauren Cedeno MD [address] [place] [address] 08/14/2025 7:30 AM STAINED GLASS JOINER Appointment [facility] [address] [place] [address] documented as of this encounter Procedures Procedure Name Priority Date/Time Associated Diagnosis Comments SONOGRAM - COMPLETE Routine 07/26/2025 8:58 AM STAINED GLASS JOINER Low serum vitamin B12 Thrombocytopenia affecting , antepartum ([facility]) 37 weeks gestation of ([facility]) Supervision of high-risk of young primigravida ([facility]) Encounter for ultrasound to assess growth ([facility]) documented in this encounter Results * Sonogram - Complete (07/26/2025 8:58 AM STAINED GLASS JOINER) Linked Results Indication ======== Maternal care for excessive growth Thrombocytopenia, unspecified History ====== OB History 1 Maternal Assessment Physical Exam Height 170 cm, 5 ft 7 in. Weight 84 kg, 186 lb. Initial weight 68 kg, 149 lb. BMI 29.13 kg/m . Initial BMI 23.34 kg/m . Weight gain 17 kg, 37 lb Method ====== View: Good view ========= [place] . Number of fetuses: 1 Dating ====== Date Details Gest. age CLARENCE LMP 11/14/2024 36 w + 2 d 08/21/2025 Previous U/S 01/13/2025 GA, GA 8 w + 3 d 36 w + 1 d 08/22/2025 U/S 07/26/2025 based upon AC, BPD, Femur, HC 39 w + 2 d 07/31/2025 Assigned dating based on the LMP, selected on 07/26/2025 36 w + 2 d 08/21/2025 General Evaluation Cardiac activity present. FHR 152 bpm. Presentation: cephalic Placenta: Placental site: anterior Amniotic fluid: Amount of AF: normal. MVP 6.2 cm. BLANK 13.2 cm. Q1 6.2 cm, Q2 4.7 cm, Q3 0.7 cm, Q4 1.6 cm Biometry BPD 98.4 mm 40w 2d >99% Hadlock HC 352.7 mm 41w 1d 99% Hadlock AC 356.7 mm 39w 4d >99% Hadlock Femur 70.4 mm 36w 1d 41% Hadlock Humerus 60.2 mm 35w 0d 35% Patrick HC / AC 0.99 Weight Calculation: EFW 3,694 g 98% Hadlock EFW (lb,oz) 8 lb 2 oz EFW by Hadlock ([id number]) accelerated Growth Overview Exam date GA BPD (mm) HC (mm) AC (mm) FL (mm) HL (mm) EFW (g) 06/20/2025 31w 1d 87.7 >99% 318.4 >99% 291 93% 60.5 45% 55.3 80% 2118 92% 07/26/2025 36w 2d 98.4 >99% 352.7 99% 356.7 >99% 70.4 41% 60.2 35% 3694 98% Anatomy The following structures appear normal: Abdomen Stomach. Kidneys. Bladder. Impression ========= * [place] IUP at 36 weeks of gestation by stated EDC from LMP & early U/S * Referred to MFM for obstetrical U/S & request for consult secondary to: Gestational thrombocytopenia growth large for gestational age (LGA) * Today's ultrasound (U/S) findings: Living arri[place] intrauterine fetus growth is trending large for gestational age (LGA) Amniotic fluid volume (AFV) is subjectively normal range Placenta is anterior & clear of the internal cervical os PAST MEDICAL & OBSTETRICAL HISTORY * Medications: vitamins, IV iron, B-12 * Past Medical History: No CHTN, no DM, no thyroidopathy, no asthma, no VTE, no SLE Thrombocytopenia December-2018 PLT = 213 per pt report Oct-2023 PLT = 141 per pt report, mononucleosis Aug-Jan-2025 PLT = 117, 125 Mar-2025 PLT = 131 May-2025 PLT = 113 Jul-2025 PLT = 77, 110, 115 Jul-2025 Hematology consult on 07/07/2025, follow-up planned at 37 weeks growth LGA She reports her birthweight was [...] Social History: Denies ethanol, tobacco, drugs * Physical Examination: BP = 124/67 mmHg, Pulse = 96 bpm, Weight = 186 pounds * Lab urine test strip today: not available * Liver/spleen U/S was just done this morning, results pending COUNSELING & RECOMMENDATIONS * In my best medical opinion I advise: Continue weekly platelet count Start nonstress tests if later indicated Today the estimated weight (EFW) is 98th% Extrapolating the last 2 scans, EFW could be ~ 4640 gm in early 39th week Repeat 1-hr GCT today Assess EFW just before delivery by Sami's and/or U/S Can consider U/S to assess EFW in 2-3 weeks Assess clinical pelvimetry Recommendations per the 2020 ACOG Practice Bulletin #216 Macrosomia, offer scheduled C/S: Diabetes mellitus -: If EFW >= 5,000 g (11#0oz) Diabetes mellitus +: If EFW >= 4,500 g (9#15oz) ACOG does NOT recommend early term (i.e. 37th-38th week) delivery for suspected macrosomia COMMENTS * Thank you very much for requesting MF participation in her obstetrical care * Findings were explained & questions were addressed & precautions were given to patient * U/S does not detect all structural, genetic & functional uzjcnoaz-tedzb-tsjk ental abnormalities * Telemedicine services were performed for this U/S examination & MFM consultation Patient's identity was confirmed at the [facility] office Appropriateness of the telehealth consult was confirmed Informed consent for telemedicine services was obtained & scanned into EMR Modality was secure interactive audio-video session using [employer]/Fixed - Parking Tickets Patient site location was [facility] & nurse presenter was Elizabeth [place] Distant site provider was Odilon Oquendo MD & location was home office Others present for telemedicine consult were her partner F/U consult = 40 minutes total, including record review & counseling & coordination of care Follow-up ======== Please see above Coding ====== Diagnoses D69.6: Thrombocytopenia, Unspecified Z36.89: Encounter for other specified screening Procedures 32882: US Preg Uterus Follow Up BLACKFEET PACS Anatomical Region Laterality Modality Other 07/26/2025 8:58 AM STAINED GLASS JOINER R Mehul Steele MD [facility] ORDERABLES Edited Result - Final documented in this encounter Visit Diagnoses Diagnosis Large for dates affecting management of mother, third trimester, other fetus (HCC)- Primary Low serum vitamin B12 Thrombocytopenia affecting , antepartum (HCC) 37 weeks gestation of (HCC) state, incidental Supervision of high-risk of young primigravida (HCC) Supervision of high-risk of young primigravida Encounter for ultrasound to assess growth (HCC) Low serum vitamin B12- Primary Thrombocytopenia affecting , antepartum (HCC) 37 weeks gestation of (HCC) state, incidental Supervision of high-risk of young primigravida (HCC) Supervision of high-risk of young primigravida Encounter for ultrasound to assess growth (HCC) documented in this encounter Care Teams Desulfurizer Machine Relationship Specialty Start Date End Date Ale Cueva MD [address] [facility] [address] [place] [address] PCP - General 02/03/18 Ale Cueva MD [address] [facility] [address] [place] [address] Pediatrics 02/03/18 documented as of this encounter
--- OUTSIDE RECORDS SUMMARY | 2025-07-26 08:50 | XMS_ITS | Encounter Summary ---
Author Organization [facility] Address [address] [place] [address] Care Team Providers Care Subscription Crew Leader Name Role Phone Ale Cueva MD Primary Care Provider [phone] Ale Cueva MD Unavailable [phone] Reason for Referral * Consultation (Routine) - Authorized Specialty Diagnoses / Procedures Referred By Contac t Referred To Contact Maternal Medicine Diagnoses Low serum vitamin B12 Thrombocytopenia affecting , antepartum (HCC) 37 weeks gestation of (HCC) Supervision of high-risk of young primigravida (HCC) Leno Steele MD [address] [place] [address] Phone: tel: fax: [facility] Maternal & Care [address] [place] [address] Phone: tel: fax: Referral ID Status Reason Start Date Expiration Date Visits Requested Visits Authorized [id number] Authorized Specialty Services Required 5 2026 3 3 M FITTER HELPER * Consultation (Routine) - Closed Specialty Diagnoses / Procedures Referred By Contac t Referred To Contact Maternal Medicine Diagnoses Low serum vitamin B12 Thrombocytopenia affecting , antepartum (HCC) 36 weeks gestation of (HCC) Supervision of high-risk of young primigravida (HCC) Encounter for ultrasound to assess growth ([facility]) Leno Steele MD [address] [place] [address] Phone: tel: fax: [facility] [address] [place] [address] Phone: tel: fax: Referral ID Status Reason Start Date Expiration Date V isits Requested Visits Authorized [id number] Closed Specialty Services Required 07/18/2025 07/18/2026 3 3 M FITTER HELPER * Procedure (Routine) - Pending Review Specialty Diagnoses / Procedures Referred By Contac t Referred To Contact Maternal Medicine Diagnoses Low serum vitamin B12 Thrombocytopenia affecting , antepartum (HCC) 36 weeks gestation of (HCC) Supervision of high-risk of young primigravida (HCC) Encounter for ultrasound to assess growth (HCC) Procedures Sonogram - Complete Leno Steele MD [address] [facility] [place] [address] Phone: tel: fax: [facility] [address] [place] [id number] Phone: tel: fax: Referral ID Status Reason Start Date Expiration Date V isits Requested Visits Authorized [id number] Pending Review 07/18/2025 07/18/2026 1 1 M FITTER HELPER Reason for Visit * Reason Comments Ultrasound Maternal Medicine Follow-up * Consultation (Routine) - Closed Specialty Diagnoses / Procedures Referred By Contac t Referred To Contact Maternal Medicine Diagnoses Low serum vitamin B12 Thrombocytopenia affecting , antepartum (HCC) 36 weeks gestation of (HCC) Supervision of high-risk of young primigravida (HCC) Encounter for ultrasound to assess growth (HCC) Leno Steele MD [address] [place] [address] Phone: tel: fax: [facility] [address] [place] [address] Phone: tel: fax: Referral ID Status Reason Start Date Expiration Date V isits Requested Visits Authorized [id number] Closed Specialty Services Required 07/18/2025 07/18/2026 3 3 Encounter Details Date Type Department Care Team (Late st Contact Info) Description 07/26/2025 8:50 AM STEAM FITTER HELPER Hospital Encounter [facility] [address] [place] [address] Odilon Oquendo MD [address] [address] Social History Tobacco Use Types [...] care, and heating? Not very hard 07/07/2025 [facility] of Occupat ional Health - Occupational Stress [...] any time in the past 12 m [facility], were you homeless or living in a senior care (including now)? No 07/07/2025 Estimated Date of Delivery Comme nts Yes 08/21/2025 Based on last me nstrual period of 11/14/2024 Sex and Gender Information Value Date Recorded Sex Assigned at Female 07/07/2025 8:32 AM STEAM FITTER HELPER Legal Sex Female 5:41 AM STEAM FITTER HELPER Gender Identity Female 07/07/2025 8:32 AM STEAM FITTER HELPER Sexual Orientation Straight 07/07/2025 8: 32 AM STEAM FITTER HELPER Occupation Industry Job Start Date Job End Date [employer] Not on file Not on file Not on file documented as of this encounter Last Filed Vital Signs Vital Sign Reading Time Taken Comments Blood Pressure 124/67 07/26/2025 9:24 AM STEAM FITTER HELPER Pulse 96 07/26/2025 9:24 AM STEAM FITTER HELPER Temperature - - Respiratory Rate - - Oxygen Saturation - - Inhaled Oxygen Concentration - - Weight 84.4 kg (186 lb) 07/26/2025 9:24 AM STEAM FITTER HELPER Height 172.7 cm (5' 8) 07/26/2025 9:24 AM STEAM FITTER HELPER Body Mass Index 28.28 07/26/2025 9:24 AM STEAM FITTER HELPER documented in this encounter Progress Notes * Elise Odonnell RN - 07/26/2025 8:16 AM CST Patient here with significant other today for ultrasound, provider visit and B12 injection with RN. Patient reports positive movement. Denies vaginal bleeding, leakage of fluid, cramping and contractions. Denies headaches, visual disturbances, RUQ pain. Patient was seen by [facility] Hematology for thrombocytopenia vs. ITP on 07/07/25 with a Follow up Hematology appt scheduled for 08/03/25. Hematology recommended patient start Iron infusions and B12 injections. Iron infusions were set up through Primary OB office as patient wanted to do them close to home.Patient's initial iron infusion was 07/18/25. Patient reports she had another one on 07/24/25. Patient has been coming to [facility] office for her B12 injections and will receive her 3rd injection today. Patient brings medication and syringes with her. Patient made aware that once she delivers she will need to have them done with her primary OB office or give them to herself. Ultrasound of liver and spleen was scheduled for 0800 today at [facility]. Platelets values throughout this : 02/10 125 04/03 131 05/30 113 06/30 106 07/07 77 - Hematology recommended Iron infusions and B12 injections (07/07 B12: 158) 07/12 110 07/24 115 Patient reports she had follow up with primary OB, Dr. Boswell on Thursday. SVE 0.5 cm per patient. Patient discussed with provider her low pelvic pressure and low back aches and she has felt the baby has dropped lower. Patient's B12 injection given in left deltoid today. Patient tolerated well. Patient has IOL scheduled for 08/14/25. Orders received from Dr. Oquendo for patient to have CBC with diff collected in citrated tube if possible and One hour GCT done. Patient agreeable and given labs requisitions to be done at [facility] at her request. Patient plans to go today. [facility] recommends ultrasound follow up for growth in 3 weeks. Elise Odonnell RN 07/26/2025 8:26 AM M FITTER HELPER documented in this encounter Consult Notes * Odilon Oquendo MD - 07/26/2025 9:31 AM CST [facility] CONSULT * [place] IUP at 36 weeks of gestation by stated EDC from LMP & early U/S * Referred to [facility] for obstetrical U/S & request for consult [...] * Thank you very much for requesting [facility] participation in her obstetrical care * Findings were explained & questions were addressed & precautions were given to patient * U/S does not detect all structural, genetic & functional usbgielp-bunxz-alkkdhyds abnormalities * Telemedicine services were performed for this U/S examination & MFM consultation Patient's identity was confirmed at the [facility] office Appropriateness of the telehealth consult was confirmed Informed consent for telemedicine services was obtained & scanned into EMR Modality was secure interactive audio-video session using [employer] Patient site location was [facility] & nurse presenter was Elizabeth JimenezOdonnell Distant site provider was Odilon Oquendo MD & location was home office Others present for telemedicine consult were her partner F/U consult = 40 minutes total, including record review & counseling & coordination of care Odilon Oquendo MD Professor, CONSUMER SERVICES CONSULTANT [facility] M FITTER HELPER M FITTER HELPER documented in this encounter Plan of Treatment Upcoming Encounters Date Type Department Care Team (Late st Contact Info) Description 08/02/2025 7:30 AM STEAM FITTER HELPER Hospital Encounter [facility] [address] [place] [address] 08/03/2025 9:00 AM STEAM FITTER HELPER Office Visit [facility] - Hematology/Oncology [address] [place] [address] Lauren Cedeno MD [address] [place] [address] 08/14/2025 7:30 AM STEAM FITTER HELPER Appointment [facility] [address] [place] [address] Scheduled Orders Name Type Priority Associated Diagnoses Orde r Schedule Sonogram - Complete [facility] MED Routine Low serum vitamin B12 Thrombocytopenia affecting , antepartum (HCC) 36 weeks gestation of (HCC) Supervision of high-risk of young primigravida (HCC) Encounter for ultrasound to assess growth (HCC) 1 Occurrences starting 07/18/2025 until 07/18/2026 GLUCOSE CHALLENGE Lab Routine Supervision of high-risk of young primigravida (HCC) Excessive growth affecting management of , antepartum, single or unspecified fetus (HCC) 1 Occurrences starting 07/26/2025 until 07/21/2026 CBC WITH DIFFERENTIAL Lab Routine Thrombocytopenia affecting , antepartum (HCC) Supervision of high-risk of young primigravida (HCC) 1 Occurrences starting 07/26/2025 until 07/21/2026 Scheduled Referrals Name Type Priority Associated Diagnoses Orde r Schedule AMB REFERRAL TO MATERNAL- MEDICINE Outpatient Referral Routine Low serum vitamin B12 Thrombocytopenia affecting , antepartum (HCC) 36 weeks gestation of (HCC) Supervision of high-risk of young primigravida (HCC) Encounter for ultrasound to assess growth (HCC) 1 Occurrences starting 07/18/2025 until 07/18/2026 AMB REFERRAL TO MATERNAL- MEDICINE Outpatient Referral Routine 1 Occurrence s starting 07/26/2025 until 07/26/2025 documented as of this encounter Visit Diagnoses Diagnosis Low serum vitamin B12- Primary Thrombocytopenia affecting , antepartum (HCC) 36 weeks gestation of (HCC) state, incidental Supervision of high-risk of young primigravida (HCC) Supervision of high-risk of young primigravida Encounter for ultrasound to assess growth (HCC) Excessive growth affecting management of , antepartum, single or unspecified fetus (HCC) Low serum vitamin B12- Primary Thrombocytopenia affecting , antepartum (HCC) 37 weeks gestation of (HCC) state, incidental Supervision of high-risk of young primigravida (HCC) Supervision of high-risk of young primigravida Encounter for ultrasound to assess growth (HCC) documented in this encounter Care Teams Subscription Crew Leader Relationship Specialty Start Date End Date Ale Cueva MD [address] [place] [address] PCP - General 02/03/18 Ale Cueva MD [address] [address] Pediatrics 02/03/18 documented as of this encounter
--- OUTSIDE RECORDS SUMMARY | 2025-07-26 11:25 | XMS_ITS | Clinical Summary ---
Author Organization [address] Address [address] [place] [address] Care Team Providers Care Athletic Team Physician Name Role Phone No, Physician Primary Care Provider [phone] Allergies No known active allergies Medications No [...] Plan of Treatment Not on file Insurance [employer] ACCESS OOS [employer] OOS Care Teams Athletic Team Physician Relationship Specialty Start Date End Date No, Physician PCP - General 01/23/22
--- OUTSIDE RECORDS SUMMARY | 2025-07-26 11:25 | XMS_ITS | Continuity of Care Document ---
Author Organization [facility] Address [address] [place] [address] [place] [address] Care Team Providers Care [place]. Senator Name Role Phone SHERYL DICKSON Primary Care Provider Assessment No assessment recorded. Plan of Treatment Reminders Order Date Submit Date Provider Last Modified By Organization Details Last Modified Time Details Appointments OB ROUTINE 2024 02:45P Cosmo TOMLINSON MD Not available Not available Not available INDUCTION 2024 04:00P Cosmo TOMLINSON MD Not available Not available Not available Lab CBC w/ auto diff 2024 025 [facility] (Lab), [address], [place], [address], 07/01/2025 02:43:32 Referral None recorded. Procedures None recorded. Surgeries None recorded. Imaging None recorded. Medication Orders None recorded. Patient TargetsNo targets recorded. Patient InstructionsNo instructions recorded. Reason for Referral None Reported. Results Created Date Observation Date Name Description Value Unit Range Abnormal Flag Note LastModifiedBy Organization Detail LastModifiedTime 02/17/2002/16/2025 [UNIT Y] ANEUP LOIDY NIPT fraction 15.3% normal Not Available [facility] [address], [place], [address], 02/16/2025 19:59:32 02/17/20 25 02/16/2025 [UNIT Y] ANEUP LOIDY NIPT 22Q11.2 microdeletio n LOW RISK <1 in 10,000 normal Not Available [facility] [address], [place], [address], 02/16/2025 19:59:32 02/17/20 25 02/16/2025 [UNIT Y] ANEUP LOIDY NIPT sex chromosome aneuploidy NOT DETECT ED normal Not Available [facility] [address], [place], [address], 02/16/2025 19:59:32 02/17/20 25 02/16/2025 [UNIT Y] ANEUP LOIDY NIPT monosomy X LOW RISK <1 in 10,000 normal Not Available [facility] [address], [place], [address], 02/16/2025 19:59:32 02/17/20 25 02/16/2025 [UNIT Y] ANEUP LOIDY NIPT trisomy 13 LOW RISK <1 in 10,000 normal Not Available [facility] [address], [place], [address], 02/16/2025 19:59:32 02/17/20 25 02/16/2025 [UNIT Y] ANEUP LOIDY NIPT trisomy 18 LOW RISK <1 in 10,000 normal Not Available [facility] [address], [place], [address], 02/16/2025 19:59:32 02/17/20 25 02/16/2025 [UNIT Y] ANEUP LOIDY NIPT trisomy 21 LOW RISK <1 in 10,000 normal Not Available [facility] [address], [place], [address], 02/16/2025 19:59:32 02/17/20 25 02/16/2025 [UNIT Y] ANEUP LOIDY NIPT sex MALE normal Not Available [facility] [address], [place], [address], 02/16/2025 19:59:32 02/17/20 25 02/16/2025 [UNIT Y] ANEUP LOIDY NIPT gestation SINGLE TON normal Not Available [facility] [address], [place], [address], 02/16/2025 19:59:32 02/17/20 25 02/16/2025 [UNIT Y] ANEUP LOIDY NIPT for detailed report, see pdf See PDF normal Not Available [facility] [address], [place], [address], 02/16/2025 19:59:32 02/22/20 25 02/21/2025 [UNIT Y] FLETCHER Rose sickle cell disease/beta -thalassemia /hemoglobino pathies carrier screen NEGATI VE normal Not Available [facility] [address], [place], [address], 02/21/2025 14:09:41 02/22/20 25 02/21/2025 [UNIT Y] FLETCHER Rose alpha-thalas semia carrier screen NEGATI VE normal Not Available [facility] [address], [place], [address], 02/21/2025 14:09:41 02/22/20 25 02/21/2025 [UNIT Y] FLETCHER Rose cystic fibrosis carrier screen NEGATI VE normal Not Available [facility] [address], [place], [address], 02/21/2025 14:09:41 02/22/20 25 02/21/2025 [UNIT Y] FLETCHER Rose spinal muscular atrophy carrier screen NEGATI VE 2 SMN1 copies , SNP not presen t normal Not Available [facility] [address], [place], [address], 02/21/2025 14:09:41 02/22/20 25 02/21/2025 [UNIT Y] FLETCHER Rose for detailed report, see pdf See PDF normal Not Available [facility] [address], [place], [address], 02/21/2025 14:09:41 02/11/20 25 02/10/2025 CT/GC AND TRICH OMONA S VAGIN KARLO (RRNA ), URINE chlamydia trachomatis, PCR Negati ve negati ve Not Available [facility] (Lab) [address], [place], [address], 02/11/2025 12:05:33 02/11/20 25 02/10/2025 CT/GC AND TRICH OMONA S VAGIN KRALO (RRNA ), URINE neisseria gonorrhoeae, PCR Negati ve negati ve Not Available [facility] (Lab) [address], [place], [address], 02/11/2025 12:05:33 02/11/20 25 02/10/2025 CT/GC AND TRICH OMONA S VAGIN KARLO (RRNA ), URINE trichomonas vaginalis ribosomal RNA (rrna) Negati ve negati ve Not Available [facility] (Lab) [address], [place], [address], 02/11/2025 12:05:33 02/11/20 25 02/10/2025 CBC W/DIF F WBC 8.7 10'3/ uL 3.5-10 .5 Not Available [facility] (Lab) [address], [place], [address], 02/11/2025 13:44:37 02/11/20 25 02/10/2025 CBC W/DIF F RBC 4.55 10'6/ uL (based on docume nted legal sex) 3.80-5 .20 Not Available [facility] (Lab) [address] [place], [address], 02/11/2025 13:44:37 02/11/20 25 02/10/2025 CBC W/DIF F HGB 13.7 g/dL (based on docume nted legal sex) 11.6-1 5.4 Not Available [facility] (Lab) [address], [place], [address], 02/11/2025 13:44:37 02/11/20 25 02/10/2025 CBC W/DIF F HCT 40.8 % (based on docume nted legal sex) 34.0-4 5.0 Not Available [facility] (Lab) [address], [place], [address], 02/11/2025 13:44:37 02/11/20 25 02/10/2025 CBC W/DIF F MCV 89.7 fL 80.0-9 9.0 Not Available [facility] (Lab) [address], [place], [address], 02/11/2025 13:44:37 02/11/20 25 02/10/2025 CBC W/DIF F MCH 30.1 pg 27.0-3 4.0 Not Available [facility] (Lab) [address], [place], [address], 02/11/2025 13:44:37 02/11/20 25 02/10/2025 CBC W/DIF F MCHC 33.6 g/dL 32.0-3 5.5 Not Available [facility] (Lab) [address], [place], [address], 02/11/2025 13:44:37 02/11/20 25 02/10/2025 CBC W/DIF F RDW 12.8 % 11.0-1 5.0 Not Available [facility] (Lab) [address], [place], [address], 02/11/2025 13:44:37 02/11/20 25 02/10/2025 CBC W/DIF F plt 125 10'3/ uL 150-40 0 low Not Available [facility] (Lab) [address], [place], [address], 02/11/2025 13:44:37 02/11/20 25 02/10/2025 CBC W/DIF F MPV 13.5 fL 8.8-12 .1 high Not Available [facility] (Lab) [address], [place], [address], 02/11/2025 13:44:37 02/11/20 25 02/10/2025 CBC W/DIF F NRBC's 0.0 % 0.0 Not Available [facility] (Lab) [address], [place], [address], 02/11/2025 13:44:37 02/11/20 25 02/10/2025 CBC W/DIF F absolute NRBCs 0.0 10'3/ uL no refere nce range establ ished Not Available [facility] (Lab) [address], [place], [address], 02/11/2025 13:44:37 02/11/20 25 02/10/2025 CBC W/DIF F neutrophils 76.5 % 34.0-7 3.0 high Not Available [facility] (Lab) [address], [place], [address], 02/11/2025 13:44:37 02/11/20 25 02/10/2025 CBC W/DIF F lymphocytes 14.4 % 15.0-5 0.0 low Not Available [facility] (Lab) [address], [place], [address], 02/11/2025 13:44:37 02/11/20 25 02/10/2025 CBC W/DIF F monocytes 8.3 % 1.0-15 .0 Not Available [facility] (Lab) [address], [place], [address], 02/11/2025 13:44:37 02/11/20 25 02/10/2025 CBC W/DIF F eosinophils 0.3 % 0.0-8. 0 Not Available [facility] (Lab) [address] [place], [address], 02/11/2025 13:44:37 02/11/20 25 02/10/2025 CBC W/DIF F basophils 0.3 % 0.0-2. 0 Not Available [facility] (Lab) [address], [place], [address], 02/11/2025 13:44:37 02/11/20 25 02/10/2025 CBC W/DIF [...] separ ately if prese nt. Not Available [facility] (Lab) [address], [place], [address], 02/11/2025 13:44:37 02/11/20 25 02/10/2025 CBC W/DIF F absolute neutrophils 6.6 10'3/ uL 1.5-8. 0 Not Available [facility] (Lab) [address], [place], [address], 02/11/2025 13:44:37 02/11/20 25 02/10/2025 CBC W/DIF F absolute lymphocytes 1.3 10'3/ uL 1.0-4. 0 Not Available [facility] (Lab) [address], [place], [address], 02/11/2025 13:44:37 02/11/20 25 02/10/2025 CBC W/DIF F absolute monocytes 0.7 10'3/ uL 0.2-1. 0 Not Available [facility] (Lab) [address], [place], [address], 02/11/2025 13:44:37 02/11/20 25 02/10/2025 CBC W/DIF F absolute eosinophils 0.0 10'3/ uL 0.0-0. 6 Not Available [facility] (Lab) [address], [place], [address], 02/11/2025 13:44:37 02/11/20 25 02/10/2025 CBC W/DIF F absolute basophils 0.0 10'3/ uL 0.0-0. 3 Not Available [facility] (Lab) [address], [place], [address], 02/11/2025 13:44:37 02/11/20 25 02/10/2025 CBC W/DIF F absolute immature granulocytes 0.0 10'3/ uL 0.00-0 .10 Refer ence range s for nonbi nary/ inter sex or unspe cifie d gende r patie nts have not been estab lishe d. Casey [facility] for range s estab lishe d for cisge nder patie nts and evalu ate in the clini randal kiera xt of the indiv idual patie nt: https ://la and book. nm.or g/gen derx Not Available [facility] (Lab) [address], [place], [address], 02/11/2025 13:44:37 02/11/20 25 02/10/2025 HIV 1/2 ANTIG EN/AN TIBOD Y, REFLE X CONFI RMATI ON HIV antigen/anti body Nonrea ctive nonrea ctive HIV-1 antig en and HIV-1 /HIV- 2 antib odies were not detec alfredo. No labor atory evide nce of HIV infec tion. Not Available [facility] (Lab) [address] , [place], [address], 02/11/2025 13:44:38 02/11/2002/10/2025 HEPAT ITIS B SURFA CE ANTIG EN hepatitis B surface antigen Non-re active non-re active This assay was perfo rmed using [employer] ratio n reage nts and test kits. Value s obtai evelyn with other assay metho ds or kits canno t be used inter collins eably . Not Available [facility] (Lab) [address] , [place], [address], 02/11/2025 13:44:38 02/11/20 25 02/10/2025 HEPAT ITIS C ANTIB TIM SCREE N, REFLE X TO CONFI RMATI ON hepatitis C antibody Non-re active non-re active Antib odies to HCV Not Detec alfredo, does not exclu de the possi bilit y of expos ure to HCV. Not Available [facility] (Lab) [address], [place], [address], 02/11/2025 13:44:39 02/11/20 25 02/10/2025 RUBEL LA IGG ANTIB TIM, QUANT rubella antibodies, IgG Reacti ve reacti ve Not Available [facility] (Lab) [address], [place], [address], 02/11/2025 13:44:39 02/11/20 25 02/10/2025 RUBEL LA IGG ANTIB TIM, QUANT rubella antibodies, IgG quant 47.1 IU/mL >=10 Non-r eacti ve (Non- Immun e) <10 IU/mL React kvng (Immu ne) > or = 10 IU/mL Not Available [facility] (Lab) [address], [place], [address], 02/11/2025 13:44:39 02/11/20 25 02/10/2025 TYPE/ RH/SC REEN ABO/Rh type O POS Not Available [facility] (Lab) [address] [place], [address], 02/11/2025 13:44:40 02/11/20 25 02/10/2025 TYPE/ RH/SC REEN antibody screen NEG Not Available [facility] (Lab) [address] [place], [address], 02/11/2025 13:44:40 02/11/20 25 02/10/2025 TYPE/ RH/SC REEN exp date 2024 23:59 Not Available [facility] (Lab) [address], [place], [address], 02/11/2025 13:44:40 02/11/20 25 02/10/2025 HEMOG LOBIN [...] >8.0% Actio n sugge sted Not Available [facility] (Lab) [address] , [place], [address], 02/11/2025 13:44:40 02/11/20 25 02/10/2025 RPR SCREE N, REFLE X TITER /CONF IRMAT ION RPR qualitative Nonrea ctive nonrea ctive Not Available [facility] (Lab) [address], [place], [address], 02/11/2025 13:44:41 02/11/20 25 02/10/2025 drug scree n, urine Amphetamines : negati ve Not Available [facility] [address], [place], [address], 02/10/2025 12:55:20 02/11/20 25 02/10/2025 drug scree n, urine Cannabinoids : negati ve Not Available [facility] [address], [place], [address], 02/10/2025 12:55:20 02/11/20 25 02/10/2025 drug scree n, urine Cocaine: negati ve Not Available [facility] [address], [place], [address], 02/10/2025 12:55:20 02/11/20 25 02/10/2025 drug scree n, urine Opiates: negati ve Not Available [facility] [address], [place], [address], 02/10/2025 12:55:20 02/11/20 25 02/10/2025 drug scree n, urine Barbiturates : negati ve Not Available [facility] [address], [place], [address], 02/10/2025 12:55:20 02/11/20 25 02/10/2025 drug scree n, urine Benzodiazepi john: negati ve Not Available [facility] [address], [place], [address], 02/10/2025 12:55:20 03/10/20 25 03/10/2025 CULTU RE: URINE result report SEE RESULT S BELOW Test: Cultu re: Urine Speci men Sourc e: Urine Voide d Speci men Type: Urine Speci men Date: 202438 Resul t Date: 2024 Resul t Statu s: Final resul t Abnor mal: No Resul ting Lab: [facility] [address] [facility] [place] [address] Tel: CULTU RE ----- ----- ----- --- No growt h in 1 day (dete ction level of 10,00 0 colon ies / ml.) Not Available [facility] (Lab) [address], [place], [address], 03/11/2025 23:15:50 04/03/20 25 04/03/2025 CBC W/DIF F WBC 12.9 10'3/ uL 3.5-10 .5 high Not Available [facility] (Lab) [address], [place], [address], 04/04/2025 04:39:51 04/03/20 25 04/03/2025 CBC W/DIF F RBC 4.33 10'6/ uL (based on docume nted legal sex) 3.80-5 .20 Not Available [facility] (Lab) [address], [place], [address], 04/04/2025 04:39:51 04/03/2004/03/2025 CBC W/DIF F HGB 13.2 g/dL (based on docume nted legal sex) 11.6-1 5.4 Not Available [facility] (Lab) [address], [place], [address], 04/04/2025 04:39:51 04/03/2004/03/2025 CBC W/DIF F HCT 40.2 % (based on docume nted legal sex) 34.0-4 5.0 Not Available [facility] (Lab) [address], [place], [address], 04/04/2025 04:39:51 04/03/2004/03/2025 CBC W/DIF F MCV 92.8 fL 80.0-9 9.0 Not Available [facility] (Lab) [address], [place], [address], 04/04/2025 04:39:51 04/03/2004/03/2025 CBC W/DIF F MCH 30.5 pg 27.0-3 4.0 Not Available [facility] (Lab) [address], [place], [address], 04/04/2025 04:39:51 04/03/2004/03/2025 CBC W/DIF F MCHC 32.8 g/dL 32.0-3 5.5 Not Available [facility] (Lab) [address] [place], [address], 04/04/2025 04:39:51 04/03/2004/03/2025 CBC W/DIF F RDW 13.0 % 11.0-1 5.0 Not Available [facility] (Lab) [address], [place], [address], 04/04/2025 04:39:51 04/03/2004/03/2025 CBC W/DIF F plt 131 10'3/ uL 150-40 0 low Not Available [facility] (Lab) [address], [place], [address], 04/04/2025 04:39:51 04/03/2004/03/2025 CBC W/DIF F MPV 13.9 fL 8.8-12 .1 high Not Available [facility] (Lab) [address], [place], [address], 04/04/2025 04:39:51 04/03/2004/03/2025 CBC W/DIF F NRBC's 0.0 % 0.0 Not Available [facility] (Lab) [address], [place], [address], 04/04/2025 04:39:51 04/03/2004/03/2025 CBC W/DIF F absolute NRBCs 0.0 10'3/ uL no refere nce range establ ished Not Available [facility] (Lab) [address], [place], [address], 04/04/2025 04:39:51 04/03/2004/03/2025 CBC W/DIF F neutrophils 76.6 % 34.0-7 3.0 high Not Available [facility] (Lab) [address], [place], [address], 04/04/2025 04:39:51 04/03/20 25 04/03/2025 CBC W/DIF F lymphocytes 14.2 % 15.0-5 0.0 low Not Available [facility] (Lab) [address], [place], [address], 04/04/2025 04:39:51 04/03/2004/03/2025 CBC W/DIF F monocytes 7.6 % 1.0-15 .0 Not Available [facility] (Lab) [address], [place], [address], 04/04/2025 04:39:51 04/03/2004/03/2025 CBC W/DIF F eosinophils 0.7 % 0.0-8. 0 Not Available [facility] (Lab) [address], [place], [address], 04/04/2025 04:39:51 04/03/2004/03/2025 CBC W/DIF F basophils 0.4 % 0.0-2. 0 Not Available [facility] (Lab) [address], [place], [address], 04/04/2025 04:39:51 04/03/2004/03/2025 CBC W/DIF F immature granulocytes 0.5 % no define d refere nce range Immat ure Granu locyt es (IG) repre sents autom ated enume ratio n of Metam yeloc ytes, Myelo cytes and Promy elocy umair when IG is < 5%. Blast s are not inclu ded in IG and repor alfredo separ ately if prese nt. Not Available [facility] (Lab) [address], [place], [address], 04/04/2025 04:39:51 04/03/2004/03/2025 CBC W/DIF F absolute neutrophils 9.9 10'3/ uL 1.5-8. 0 high Not Available [facility] (Lab) [address], [place], [address], 04/04/2025 04:39:51 04/03/2004/03/2025 CBC W/DIF F absolute lymphocytes 1.8 10'3/ uL 1.0-4. 0 Not Available [facility] (Lab) [address], [place], [address], 04/04/2025 04:39:51 04/03/2004/03/2025 CBC W/DIF F absolute monocytes 1.0 10'3/ uL 0.2-1. 0 Not Available [facility] (Lab) [address], [place], [address], 04/04/2025 04:39:51 04/03/2004/03/2025 CBC W/DIF F absolute eosinophils 0.1 10'3/ uL 0.0-0. 6 Not Available [facility] (Lab) [address], [place], [address], 04/04/2025 04:39:51 04/03/2004/03/2025 CBC W/DIF F absolute basophils 0.1 10'3/ uL 0.0-0. 3 Not Available [facility] (Lab) [address], [place], [address], 04/04/2025 04:39:51 04/03/2004/03/2025 CBC W/DIF F absolute immature granulocytes 0.1 10'3/ uL 0.00-0 .10 Refer ence range s for nonbi nary/ inter sex or unspe cifie d gende r patie nts have not been estab lishe d. Pleas e [facility] for range s estab lishe d for cisge nder patie nts and evalu ate in the clini randal kiera xt of the indiv idual patie nt: https ://misael calzada book. nm.or g/gen derx Not Available [facility] (Lab) [address], [place], [address], 04/04/2025 04:39:51 05/02/2005/02/2025 CULTU RE: URINE result report SEE RESULT S BELOW Test: Cultu re: Urine Speci men Sourc e: Urine - Clean Catch Speci men Type: Urine Speci men Date: 1502 Resul t Date: 0404 Resul t Statu s: Final resul t Abnor mal: No Resul ting Lab: [facility] [address] [facility] [address] Tel: [phone] CULTU RE ----- ----- ----- --- No growt h in 1 day (dete ction level of 10,00 0 colon ies / ml.) Not Available [facility] (Lab) [address], [place], [address], 05/04/2025 05:09:17 05/30/20 25 05/30/2025 CBC W/DIF F WBC 11.9 10'3/ uL 3.5-10 .5 high Not Available [facility] (Lab) [address], [place], [address], 05/31/2025 12:26:07 05/30/20 25 05/30/2025 CBC W/DIF F RBC 3.98 10'6/ uL (based on docume nted legal sex) 3.80-5 .20 Not Available [facility] (Lab) [address], [place], [address], 05/31/2025 12:26:07 05/30/20 25 05/30/2025 CBC W/DIF F HGB 12.4 g/dL (based on docume nted legal sex) 11.6-1 5.4 Not Available [facility] (Lab) [address], [place], [address], 05/31/2025 12:26:07 05/30/20 25 05/30/2025 CBC W/DIF F HCT 36.8 % (based on docume nted legal sex) 34.0-4 5.0 Not Available [facility] (Lab) [address] [place], [address], 05/31/2025 12:26:07 05/30/20 25 05/30/2025 CBC W/DIF F MCV 92.5 fL 80.0-9 9.0 Not Available [facility] (Lab) [address] [place], [address], 05/31/2025 12:26:07 05/30/20 25 05/30/2025 CBC W/DIF F MCH 31.2 pg 27.0-3 4.0 Not Available [facility] (Lab) [address], [place], [address], 05/31/2025 12:26:07 05/30/20 25 05/30/2025 CBC W/DIF F MCHC 33.7 g/dL 32.0-3 5.5 Not Available [facility] (Lab) [address], [place], [address], 05/31/2025 12:26:07 05/30/20 25 05/30/2025 CBC W/DIF F RDW 13.4 % 11.0-1 5.0 Not Available [facility] (Lab) [address], [place], [address], 05/31/2025 12:26:07 05/30/20 25 05/30/2025 CBC W/DIF F plt 113 10'3/ uL 150-40 0 low Not Available [facility] (Lab) [address], [place], [address], 05/31/2025 12:26:07 05/30/20 25 05/30/2025 CBC W/DIF F MPV 13.8 fL 8.8-12 .1 high Not Available [facility] (Lab) [address], [place], [address], 05/31/2025 12:26:07 05/30/20 25 05/30/2025 CBC W/DIF F NRBC's 0.0 % 0.0 Not Available [facility] (Lab) [address], [place], [address], 05/31/2025 12:26:07 05/30/20 25 05/30/2025 CBC W/DIF F absolute NRBCs 0.0 10'3/ uL no refere nce range establ ished Not Available [facility] (Lab) [address], [place], [address], 05/31/2025 12:26:07 05/30/20 25 05/30/2025 CBC W/DIF F neutrophils 79.4 % 34.0-7 3.0 high Not Available [facility] (Lab) [address] [place], [address], 05/31/2025 12:26:07 05/30/20 25 05/30/2025 CBC W/DIF F lymphocytes 10.8 % 15.0-5 0.0 low Not Available [facility] (Lab) [address], [place], [address], 05/31/2025 12:26:07 05/30/20 25 05/30/2025 CBC W/DIF F monocytes 7.7 % 1.0-15 .0 Not Available [facility] (Lab) [address], [place], [address], 05/31/2025 12:26:07 05/30/20 25 05/30/2025 CBC W/DIF F eosinophils 0.8 % 0.0-8. 0 Not Available [facility] (Lab) [address], [place], [address], 05/31/2025 12:26:07 05/30/20 25 05/30/2025 CBC W/DIF F basophils 0.4 % 0.0-2. 0 Not Available [facility] (Lab) [address], [place], [address], 05/31/2025 12:26:07 05/30/20 25 05/30/2025 CBC W/DIF [...] separ ately if prese nt. Not Available [facility] (Lab) [address], [place], [address], 05/31/2025 12:26:07 05/30/20 25 05/30/2025 CBC W/DIF F absolute neutrophils 9.5 10'3/ uL 1.5-8. 0 high Not Available [facility] (Lab) [address], [place], [address], 05/31/2025 12:26:07 05/30/20 25 05/30/2025 CBC W/DIF F absolute lymphocytes 1.3 10'3/ uL 1.0-4. 0 Not Available [facility] (Lab) [address], [place], [address], 05/31/2025 12:26:07 05/30/20 25 05/30/2025 CBC W/DIF F absolute monocytes 0.9 10'3/ uL 0.2-1. 0 Not Available [facility] (Lab) [address], [place], [address], 05/31/2025 12:26:07 05/30/20 25 05/30/2025 CBC W/DIF F absolute eosinophils 0.1 10'3/ uL 0.0-0. 6 Not Available [facility] (Lab) [address], [place], [address], 05/31/2025 12:26:07 05/30/20 25 05/30/2025 CBC W/DIF F absolute basophils 0.1 10'3/ uL 0.0-0. 3 Not Available [facility] (Lab) [address], [place], [address], 05/31/2025 12:26:07 05/30/20 25 05/30/2025 CBC W/DIF [...] calzada book. nm.or g/gen derx Not Available [facility] (Lab) [address], [place], [address], 05/31/2025 12:26:07 05/30/20 25 05/30/2025 HIV 1/2 ANTIG EN/AN TIBOD Y, REFLE X CONFI RMATI ON HIV antigen/anti body Nonrea ctive nonrea ctive HIV-1 antig en and HIV-1 /HIV- 2 antib odies were not detec alfredo. No labor atory evide nce of HIV infec tion. Not Available [facility] (Lab) [address], [place], [address], 05/31/2025 12:26:07 05/30/20 25 05/30/2025 GTT - GESTA REGAN L SCREE N, ACOG OB glucose, 1 hour screen 82 mg/dL 70-135 Not Available [facility] (Lab) [address], [place], [address], 05/31/2025 12:26:08 05/30/20 25 05/30/2025 RPR SCREE N, REFLE X TITER /CONF IRMAT ION RPR qualitative Nonrea ctive nonrea ctive Not Available [facility] (Lab) [address] [place], [address], 05/31/2025 12:26:08 06/30/20 25 06/30/2025 CBC W/DIF F WBC 11.6 10'3/ uL 3.5-10 .5 high Not Available [facility] (Lab) [address], [place], [address], 07/01/2025 02:43:32 06/30/20 25 06/30/2025 CBC W/DIF F RBC 3.97 10'6/ uL (based on docume nted legal sex) 3.80-5 .20 Not Available [facility] (Lab) [address], [place], [address], 07/01/2025 02:43:32 06/30/20 25 06/30/2025 CBC W/DIF F HGB 12.4 g/dL (based on docume nted legal sex) 11.6-1 5.4 Not Available [facility] (Lab) [address], [place], [address], 07/01/2025 02:43:32 06/30/20 25 06/30/2025 CBC W/DIF F HCT 35.3 % (based on docume nted legal sex) 34.0-4 5.0 Not Available [facility] (Lab) [address] [facility], [place], [address], 07/01/2025 02:43:32 06/30/20 25 06/30/2025 CBC W/DIF F MCV 88.9 fL 80.0-9 9.0 Not Available [facility] (Lab) [address] [facility], [place], [address], 07/01/2025 02:43:32 06/30/20 25 06/30/2025 CBC W/DIF F MCH 31.2 pg 27.0-3 4.0 Not Available [facility] (Lab) [address] [facility], [place], [address], 07/01/2025 02:43:32 06/30/20 25 06/30/2025 CBC W/DIF F MCHC 35.1 g/dL 32.0-3 5.5 Not Available [facility] (Lab) [address] [facility] [facility], [place], [address], 07/01/2025 02:43:32 06/30/20 25 06/30/2025 CBC W/DIF F RDW 13.2 % 11.0-1 5.0 Not Available [facility] (Lab) [address] [facility] [facility], [place], [address], 07/01/2025 02:43:32 06/30/20 25 06/30/2025 CBC W/DIF F plt 106 10'3/ uL 150-40 0 low Not Available [facility] (Lab) [address] [facility] [facility], [place], [address], 07/01/2025 02:43:32 06/30/20 25 06/30/2025 CBC W/DIF F MPV 13.2 fL 8.8-12 .1 high Not Available [facility] (Lab) [address] [facility] [facility], [place], [address], 07/01/2025 02:43:32 06/30/20 25 06/30/2025 CBC W/DIF F NRBC's 0.0 % 0.0 Not Available [facility] (Lab) [address] [facility] [facility], [place], [address], 07/01/2025 02:43:32 06/30/20 25 06/30/2025 CBC W/DIF F absolute NRBCs 0.0 10'3/ uL no refere nce range establ ished Not Available [facility] (Lab) [address] [facility], [place], [address], 07/01/2025 02:43:32 06/30/20 25 06/30/2025 CBC W/DIF F neutrophils 77.2 % 34.0-7 3.0 high Not Available [facility] (Lab) [address] [facility] [facility], [place], [address], 07/01/2025 02:43:32 06/30/20 25 06/30/2025 CBC W/DIF F lymphocytes 13.2 % 15.0-5 0.0 low Not Available [facility] (Lab) [address] [facility], [place], [address], 07/01/2025 02:43:32 06/30/20 25 06/30/2025 CBC W/DIF F monocytes 7.5 % 1.0-15 .0 Not Available [facility] (Lab) [address] [facility], [place], [address], 07/01/2025 02:43:32 06/30/20 25 06/30/2025 CBC W/DIF F eosinophils 0.9 % 0.0-8. 0 Not Available [facility] (Lab) [address] [facility] [facility], [place], [address], 07/01/2025 02:43:32 06/30/20 25 06/30/2025 CBC W/DIF F basophils 0.4 % 0.0-2. 0 Not Available [facility] (Lab) [address] [facility] [facility], [place], [address], 07/01/2025 02:43:32 06/30/20 25 06/30/2025 CBC W/DIF [...] separ ately if prese nt. Not Available [facility] (Lab) [address] [facility] [facility], [place], [address], 07/01/2025 02:43:32 06/30/20 25 06/30/2025 CBC W/DIF F absolute neutrophils 8.9 10'3/ uL 1.5-8. 0 high Not Available [facility] (Lab) [address] [facility] [facility], [place], [address], 07/01/2025 02:43:32 06/30/20 25 06/30/2025 CBC W/DIF F absolute lymphocytes 1.5 10'3/ uL 1.0-4. 0 Not Available [facility] (Lab) [address] [facility], [place], [address], 07/01/2025 02:43:32 06/30/20 25 06/30/2025 CBC W/DIF F absolute monocytes 0.9 10'3/ uL 0.2-1. 0 Not Available [facility] (Lab) [address] [facility], [place], [address], 07/01/2025 02:43:32 06/30/20 25 06/30/2025 CBC W/DIF F absolute eosinophils 0.1 10'3/ uL 0.0-0. 6 Not Available [facility] (Lab) [address] [facility], [place], [address], 07/01/2025 02:43:32 06/30/20 25 06/30/2025 CBC W/DIF F absolute basophils 0.1 10'3/ uL 0.0-0. 3 Not Available [facility] (Lab) [address] [facility], [place], [address], 07/01/2025 02:43:32 06/30/20 25 06/30/2025 CBC W/DIF [...] calzada book. nm.or g/gen derx Not Available [facility] (Lab) [address] [facility], [place], [address], 07/01/2025 02:43:32 02/11/20 25 02/10/2025 US, obste tric, nucha l trans lucen cy No observ ation record ed. [facility] [address], [place], [address], 02/10/2025 18:38:42 02/11/20 25 02/10/2025 US, ovi soares, dedricko w-up No observ ation record ed. Autumn [address], [place], [address], 02/13/2025 09:20:03 04/03/20 25 04/03/2025 US, obste tric, 2nd or 3rd trime ster No observ ation record ed. [email or web address] [place] [address], [place], [address], 04/03/2025 18:43:20 04/03/20 25 04/03/2025 US, obste tric, 2nd or 3rd trime ster No observ ation record ed. [facility] [address], [place], [address], 04/05/2025 17:47:52 04/21/20 25 04/21/2025 non-s tress test No observ ation record ed. [place] [address], [place], [address], 04/24/2025 12:03:28 05/02/20 25 05/02/2025 US, obste tric, follo w-up No observ ation record ed. [email or web address] [place] [address], [place], [address], 05/02/2025 12:58:26 05/02/20 25 05/02/2025 US, obste tric, follo w-up No observ ation record ed. ROBERT [facility] [address], [place], [address], 05/03/2025 18:13:01 05/29/20 25 05/29/2025 non-s tress test No observ ation record ed. [address], [place], [address], 05/31/2025 15:39:22 06/20/20 25 06/20/2025 imagi ng/di agnos tic resul t No observ ation record ed. [facility] [address] [place] [address], [address], 06/20/2025 13:33:45 06/20/2006/20/2025 US, obste tric, follo w-up No observ [facility]ion record ed. [facility] [address] [place] [address], [address], 06/27/2025 17:32:46 07/03/2007/03/2025 non-s tress test No observ ation record ed. [address], [address], 07/19/2025 15:34:42 07/03/20 25 07/03/2025 imagi ng/di agnos tic resul t No observ ation record ed. [address], [address], 07/03/2025 11:55:37 07/26/20 25 07/26/2025 imagi ng/di agnos tic resul t No observ ation record ed. [address], [address], 07/26/2025 09:55:02 07/26/20 25 07/26/2025 imagi ng/di agnos tic resul t No observ ation record ed. [facility] [address] [place] [address], [address], 07/26/2025 11:28:40 07/26/20 25 07/26/2025 imagi ng/di agnos tic resul t No observ ation record ed. [facility] [address], [address], 07/26/2025 11:42:27 Result Notes None recorded. Problems Name Problem SNOMED Code Status Onset Date Resolution Date Notes Provider Name and Address Organization Details Recorded Time Anxiety 81301721 Active 2024 Kristenmatias Ruffin [facility] 5 11:01:06 81874704 Active 2024 Aleah Bedolla [facility] 5 11:57:32 Platelet count below reference range 694965423 Active 2024 Referral faxed to [facility] 06/01 scheduled 06/20 0900 Level II us and consult Zoey Tarango [facility] 5 11:50:53 Problem Notes None recorded. Procedures Surgical History Date Name Laterality Status Provider Name and Address Organization Details Recorded Time 5 Date of Last Pap Smear completed Kristen Ruffin [facility] 01/13/2025 11:01:13 7 operative procedure on wrist completed Aleah Bedolla [facility] 02/10/2025 11:57:07 Imaging Results None recorded. [...] Updated DateTime 06/30/2025 170.18 cm 27.9 kg/m2 96343.44 g 112/78 mm[Hg] Isabel Romero [facility] 06/30/2025 12:00:49 Social History Question Answer Notes LastModified by Organizat ion Details LastModified Time Tobacco Smoking Status Never Smoker Kristen sánchez, [facility] 01/13/2025 11:05:22 If You Are , What Was Your Level Of Alcohol Consumption Prior To ? Occasional Information not available 01/13/2025 Are You Blind Or Do You Have Difficulty Seeing? No [email or web address] Information n ot available 01/13/2025 What Is Your Level Of Caffeine Consumption? Occasional Information not available 01/13/2025 In The 14 Days Before Symptom Onset, Have You Had Close Contact With A Laboratory-confirm ed COVID-19 While That Case Was Ill? No [email or web address] Information n ot available 01/13/2025 In The 14 Days Before Symptom Onset, Have You Had Close Contact With A Person Who Is Under Investigation For COVID-19 While That Person Was Ill? No [email or web address] Information not available 01/13/2025 Have You Been To An Area Known To Be High Risk For COVID-19? No [email or web address] Information not available 01/13/2025 Are You Deaf Or Do You Have Serious Difficulty Hearing? No [email or web address] Information not available 01/13/2025 Do You Have Smoke And Carbon Monoxide Detectors In Your Home? Yes Information not available 01/13/2025 Do You Use Sunscreen Routinely? Yes [email or web address] Information not available 01/13/2025 Has Tobacco Cessation Counseling Been Provided? No [email or web address] Information not available 01/13/2025 Have You Used IV Drugs? No [email or web address] Information not available 01/13/2025 Do You Have Difficulty Walking Or Climbing Stairs? No [email or web address] Information not available 01/13/2025 Sex: Unknown Functional Status Question Answer Note LastModified by Organizat ion Details LastModified Time Do you use any illicit or recreational drugs? No [email or web address] Information not available 01/13/2025 Do you or have you ever used any other forms of tobacco or nicotine? Yes [email or web address] Information not available 01/13/2025 What is your level of alcohol consumption? None [email or web address] Information not available 01/13/2025 Are you able to walk independently without assistance or assistive devices? YESWOREST [email or web address] Information not available 01/13/2025 Are you able to care for yourself independently? Yes [email or web address] Information not available 01/13/2025 Do you have difficulty dressing, bathing, grooming, or toileting? No [email or web address] Information not available 01/13/2025 Do you or have you ever used e-cigarettes or vape? Former user of electronic cigarettes [email or web address] Information not available 01/13/2025 Mental Status None recorded. Family History Relationship Description Onset Age of this Age Resolved Age Notes LastModified by Organization Details LastModified Time Unspecified Relation Family history unknown [email or web address] Not available 2024 13:48:03 Paternal Grandfather Malignant neoplasm of prostate [email or web address] Not available 07/02 11:19:15 Maternal Grandfather Malignant neoplasm of lung [email or web address] Not available 01/13 11:03:40 Maternal Grandmother Malignant neoplasm of pancreas [email or web address] Not available 07/02 11:19:15 Maternal Aunt Malignant neoplasm of breast [email or web address] Not available 2024 13:48:03 Father Leukemia [email or web address] Not availa ble 07/24/2025 11:19:16 Mother Diabetes mellitus [email or web address] Not available 01/13 11:04:57 Medical History Condition Response Allergies (Food, seasonal, environmental ) N Other N Blood Transfusion N Drug/Latex Allergies/Reactions N Breast Cancer N Dermatologic Disorders N Lung Disease N [...] ICD10 Code Diagnosis IMO Codes Diagnosis Note [id number] JOLIE TOMLINSON MD [place] [address],[place] [address] 05/30/2025 09:40:10 05/30/2025 10:26:07 Thrombocytopenic disorder 026742990 D69.6 90192 - plt 125>131- repeat today Gestation period, 28 weeks 10876207 Z3A.28 [id number] MD Jayjay [facility] [address],[place] [address] 06/13/2025 15:20:18 06/13/2025 16:44:44 Platelet count below reference range 176674941 D69.6 99908195 - plt 125>131>11 3- MFM consult Gestation period, 30 weeks 36858146 Z3A.30 6914159 [id number] JOLIE TOMLINSON MD [place] [address],[place] [address] 06/30/2025 11:40:05 06/30/2025 12:44:02 Platelet count below reference range 366228785 D69.6 21875764 - plt 125>131>11 3- MFM consult Gestation period, 32 weeks 7531445 Z3A.32 0133354 - continue [facility] Concerns Section Related Observation LastModified by Organization Detai ls LastModified Time None Recorded Concern Status LastModified by Organization Details LastModified Time None Recorded Payers Encounter Date Sequence Insurance Name Policy Number Policy Marie Covered Member ID Marie Member ID Guarantor Name 06/30/2025 2 [place] [employer] Gabby Jose [id number] Kya Angulo 06/30/2025 1 [place] [id number] Kya Angulo [id number] Kya Angulo Notes Date Note Type Note Provider Name and Address Organization Details Recorded Time 06/30/2025 text/html Generic HPI TemplateReported by Patient JOLIE TOMLINSON MD [address], [place], [address], [facility] 06/30/2025 12:29:02 OBGyn Episode Ob Episode Information Episode Created Date Number of Fetuses Patient Bloodtype Patient rh Status Prepregnancy Weight lbs Domestic Partner Domestic Partner Phone Father Name [employer] Status 02/11/20 25 1 O Positive 150 Jovany Echeverria OPEN Fetus Data First Name Last Name Admitted to NICU Weight (g) Sex Living Outcome Pediatric Complications Fetus ID Race Codes Race Delivery Type [id number] Problems Problem Notes RSV vaccine received 07/04/25 . Problem Name Start Date End Date Resolution Snomed Code Not e Platelet count below reference range 06/01/2025 [id number] Referral fax ed to [facility] 06/01 scheduled 06/20 0900 Level II [...] Date Ultra Sound Latest Days Gestation 0 [email or web address] 02/10/2025 08/21/20 25 0 Pre-henna Flowsheet Flowsheet Date 02/10/2025 Kirkland Score Blood Edema Fundus Height Fundus Units Glucose Ketones Leukocytes Nitrite Labor Signs Protein Cervic Dilation Cervic Effacement Cervic Station Type Weight in lbs Pre/Post Dialysis Refused Weight 153.782206762425 BP Diastolic BP Location Tested BP Systolic BP Type 77 L arm 122 sitting Fetus Heart Rate Present A Present Fetus Movement Comments Patient presents to [facility] care. otherwise uncomplicated. No bleeding or cramping. [...] Weight in lbs Pre/Post Dialysis Refused Weight 156.013895529921 BP Diastolic BP Location Tested BP Systolic [...] Weight in lbs Pre/Post Dialysis Refused Weight 160.698085882125 BP Diastolic BP Location Tested BP Systolic [...] Weight in lbs Pre/Post Dialysis Refused Weight 165.460192613000 BP Diastolic BP Location Tested BP Systolic [...] Type Weight in lbs Pre/Post Dialysis Refused 176.385266946259 BP Diastolic BP Location Tested BP Systolic BP Type 78 L arm 118 sitting Fetus Heart Rate Present A 150 Fetus Movement A Yes Comments Had an episode of DFM yester day, went to [place] and had negative workup. No cramping or bleeding. GCT and labs today, will draw CBC as well. Discussed Tdap, RSV, and flu vaccines. RTC 2 weeks. Flowsheet Date 06/13/2025 Kirk[place] Score Blood Edema Fundus Height Fundus Units Glucose Ketones Leukocytes Nitrite Labor Signs Protein Cervic Dilation Cervic Effacement Cervic Station Type Weight in lbs Pre/Post Dialysis Refused 181.778762930944 BP Diastolic BP Location Tested BP Systolic [...] Weight in lbs Pre/Post Dialysis Refused Weight 178.983618775304 BP Diastolic BP Location Tested BP Systolic BP Type 78 L arm 112 sitting Fetus Heart Rate Present A 140 Fetus Movement A Yes Comments Good movement. No cram ping or bleeding. Saw MFM, recommend platelet counts every visit. Finger Cobbler appointment next week to determine if autoimmune vs gestational. EFW 92%, AC 93%; discussed 39 week induction, plan for 12/15 PM. Preadmission scheduled. RSV vaccine discussed. RTC 2 weeks. Flowsheet Date 07/12/2025 Kirkland Score Blood Edema Fundus Height Fundus Units Glucose Ketones Leukocytes Nitrite Labor Signs Protein Cervic Dilation Cervic Effacement Cervic Station Type Weight in lbs Pre/Post Dialysis Refused Weight 185.793414861184 BP Diastolic BP Location Tested BP Systolic BP Type 78 L arm 120 sitting Fetus Heart Rate Present Fetus Movement A Yes Comments Platelet count down to 77, B 12 deficiency, started B12 injections. Will talk to MFM about steroid timing. Also low iron, taking [...] Weight in lbs Pre/Post Dialysis Refused Weight 186.747880994038 BP Diastolic BP Location Tested BP Systolic [...]
--- OUTSIDE RECORDS SUMMARY | 2025-07-26 11:26 | XMS_ITS | Encounter Summary ---
Author Organization [facility] Health Address [address] [place] [address] Care Team Providers Care Envelope Machine Adjuster Name Role Phone Ale Cueva MD Primary Care Provider [phone] Ale Cueva MD Unavailable [phone] Encounter Details Date Type Department Care Team (Late st Contact Info) Description 07/18/2025 Orders Only [facility] - Hematology/Oncology [address] [place] [address] Lauren Cdeeno MD [address] [place] [address] Social History Tobacco Use Types [...] care, and heating? Not very hard 07/07/2025 [facility] [place] - Occupational Stress [...] any time in the past 12 m [facility], were you homeless or living in a detention (including now)? No 07/07/2025 Education Answer Date Recorded What is the highest level of school you have completed or the highest degree you have received? 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 file Not on file Not on file documented as of this encounter Plan of Treatment Upcoming Encounters Date Type Department Care Team (Late st Contact Info) Description 08/02/2025 7:30 AM MANDREL PULLER Hospital Encounter [facility] M[facility] & Care [address] [place] [address] 08/03/2025 9:00 AM MANDREL PULLER Office Visit [facility] - Hematology/Oncology [address] [place] [phone] Lauren Cedeno MD [address] [place] [address] 08/14/2025 7:30 AM MANDREL PULLER Appointment [facility] [address] [place] [address] documented as of this encounter Visit Diagnoses Not on filedocumented in this encounter Care Teams Envelope Machine Adjuster Relationship Specialty Start Date End Date Ale Cueva MD [address] [employer] [address] [place] [address] PCP - General 02/03/18 Ale Cueva MD [address] [facility] [address] [place] [address] Pediatrics 02/03/18 documented as of this encounter
--- OUTSIDE RECORDS SUMMARY | 2025-07-26 11:26 | XMS_ITS | Clinical Summary ---
Author Organization [facility] Address [address] [place] [address] Care Team Providers Care Spares Scheduler Name Role Phone Ale Cueva MD Primary Care Provider [phone] Ale Cueva MD Unavailable [phone] Source Comments [facility],non-owned Affiliates and Associated Physician Practices is amultiple site organization consisting of ambulatory clinics and hospital sitesin [place], [place], [place] and [place]. This disclosure is being madepursuant to the Care Everywhere program and may not contain all information available regarding this patient. Last updated 18.[facility] Allergies No known active allergies Medications * Be aware that medications may not be up to date on this document. Alwaysverify current medications with the patient. Vit-DSS-Fe Fum-FA ( vitamin with iron) tablet Take 1 (one) tablet by mouth once daily Active cyanocobalamin (Vitamin B-12) injectionIndic ations:quantit y [...] 4(sent earlier) 10 mL 11 5 Active neomycin-polym yxin-hc (CORTISPORIN) 3.5-28943-9 otic suspensionIndi cations:Infect ious otitis externa, left 5 gtts to Left ear 3-4 times per day x 7-10 days 1 Bottle 0 6 07/26/20 Discontinu ed(Tx Complete) tretinoin (RETIN-A) 0.05 % creamIndicatio ns:Acne vulgaris Pea sized amount to entire face at night.. 30 days supply. 45 g 3 8 07/26/20 Discontinu ed(Tx Complete) clindamycin-be nzoyl peroxide (BENZACLIN) 1-5 % gelIndications :Acne vulgaris Apply to face once daily in the morning. 30 DS 50 g 3 8 07/26/20 Discontinu ed(Tx Complete) doxycycline hyclate (VIBRAMYCIN) 100 MG tablet TAKE 1 TABLET BY MOUTH TWICE A DAY 60 tablet 5 8 07/26/20 Discontinu ed(Tx Complete) ferrous sulfate 325 (65 FE) MG tablet Take 1 (one) tablet by mouth every 2 days 100 tablet 1 5 07/26/20 Discontinu ed(Tx Complete) cyanocobalamin (Vitamin B-12) injectionIndic ations:monthly injection after finishing weekly injecitons x 4(sent earlier) Inject 1,000 (one thousand) mcg into muscle every 30 days Reasons: monthly injection after finishing weekly injecitons x 4(sent earlier) 10 mL 11 5 07/18/20 Discontinu ed(Reorder ) Active Problems Problem Noted [...] Date Type Department Care Team Description 07/26/2025 8:50 AM PAPER CUP HANDLE MACHINE OPERATOR Hospital Encounter [facility] [address] [place] [id number] Odilon Oquendo MD 07/26/2025 8:49 AM PAPER CUP HANDLE MACHINE OPERATOR Hospital Encounter [facility] [address] [place] [phone] Odilon Oquendo MD 07/19/2025 7:28 AM PAPER CUP HANDLE MACHINE OPERATOR - 07/19/2025 11:59 PM PAPER CUP HANDLE MACHINE OPERATOR Hospital Encounter [facility] [address] [place] [phone] Rubi Coyle MD Discharge Disposition: Home or Self Care 07/18/2025 Orders Only [facility] [address] [place] [phone] Lauren Cedeno MD 07/12/2025 12:31 PM PAPER CUP HANDLE MACHINE OPERATOR - 07/12/2025 11:59 PM PAPER CUP HANDLE MACHINE OPERATOR Hospital Encounter [facility] [address] [place] [phone] Blanche Esparza MD Discharge Disposition: Home or Self Care 07/11/2025 Orders Only [facility] [address] [place] [phone] Lauren Cedeno MD 07/10/2025 Telephone [facility] [address] [place] [phone] Elise Odonnell RN Question (Zoey from Dr. Boswell's office called about patient calling their office regarding B12 injections and Iron infusions. Zoey questioning U hematology note/recommendations. Unsure of what patient wants. ) 07/07/2025 9:00 AM PAPER CUP HANDLE MACHINE OPERATOR Office Visit [facility] [address] [place] [address] Lauren Cedeno MD B12 deficiency (Primary Dx); Acquired thrombocytopenia 07/07/2025 Travel 07/03/2025 Telephone [facility] [address] [place] [address] Nitza Marrero RN Results 06/20/2025 8:45 AM CDT - 06/20/2025 11:59 PM CDT Hospital Encounter [facility] [address] [place] [address] Odilon Oquendo MD Discharge Disposition: Home or Self Care 06/20/2025 8:41 AM CDT - 06/20/2025 8:44 AM CDT Hospital Encounter [facility] [address] [place] [address] Odilon Oquendo MD Discharge Disposition: Home or [...] care, and heating? Not very hard 07/07/2025 [facility] - [facility] [...] [facility] the [facility] were you homeless or living in a senior living (including now)? No 07/07/2025 Education Answer Date Recorded What is the highest level of school you have completed or the highest degree you have received? 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 on file Not on file Not on file Last Filed Vital Signs Vital Sign Reading Time Taken Comments Blood Pressure 124/67 07/26/2025 9:24 AM PAPER CUP HANDLE MACHINE OPERATOR Pulse 96 07/26/2025 9:24 AM PAPER CUP HANDLE MACHINE OPERATOR Temperature 37.1 C (98.8 F) 07/07/2025 8:24 AM PAPER CUP HANDLE MACHINE OPERATOR Respiratory Rate 12 07/07/2025 8:24 AM PAPER CUP HANDLE MACHINE OPERATOR Oxygen Saturation 95% 07/07/2025 8:24 AM PAPER CUP HANDLE MACHINE OPERATOR Inhaled Oxygen Concentration - - Weight 84.4 kg (186 lb) 07/26/2025 9:24 AM PAPER CUP HANDLE MACHINE OPERATOR Height 172.7 cm (5' 8) 07/26/2025 9:24 AM PAPER CUP HANDLE MACHINE OPERATOR Body Mass Index 28.28 07/26/2025 9:24 AM PAPER CUP HANDLE MACHINE OPERATOR Plan of Treatment Upcoming Encounters Date Type Department Care Team (Late st Contact Info) Description 08/02/2025 7:30 AM PAPER CUP HANDLE MACHINE OPERATOR Hospital Encounter [facility] [address] [place] [address] 08/03/2025 9:00 AM PAPER CUP HANDLE MACHINE OPERATOR Office Visit [facility] - Hematology[facility]Oncology [address] [place] [phone] Lauren Cedeno MD [address] [place] [address] 08/14/2025 7:30 AM PAPER CUP HANDLE MACHINE OPERATOR Appointment [facility] [address] [place] [address] Health Maintenance Due Date Last Done Comments CHLAMYDIA/GONORRHEA SCREENING 2017 PAP SMEAR 2022 DTAP/TDAP/TD VACCINES (7 - Td or Tdap) 04/05/2023 04/05/2013, 02/23/2007, 03/28/2003, Additional history exists COVID-19 VACCINE (1 - season) 2025 INFLUENZA VACCINE (#1) 2025 [...] Diagnosis Comments SONOGRAM - COMPLETE Routine 07/26/2025 8 :58 AM PAPER CUP HANDLE MACHINE OPERATOR Low serum vitamin B12 Thrombocytopenia affecting , antepartum (HCC) 37 weeks gestation of (HCC) Supervision of high-risk of young primigravida ([facility]) Encounter for ultrasound to assess growth ([facility]) CBC W AUTO DIFFERENTIAL Routine 07/07/2025 10:07 AM PAPER CUP HANDLE MACHINE OPERATOR Acquired thrombocytopenia COMPREHENSIVE METABOLIC PANEL Routine 07/07/2025 10:07 AM PAPER CUP HANDLE MACHINE OPERATOR Acquired thrombocytopenia HEPATITIS B SURFACE ANTIBODY Routine 07/07/2025 10:07 AM PAPER CUP HANDLE MACHINE OPERATOR Acquired thrombocytopenia HEPATITIS B CORE ANTIBODY IGM Routine 07/07/2025 10:07 AM PAPER CUP HANDLE MACHINE OPERATOR Acquired thrombocytopenia HEPATITIS C AB W/RFLX TO HCV RNA QN PCR Routine 07/07/2025 10:07 AM PAPER CUP HANDLE MACHINE OPERATOR Acquired thrombocytopenia FOLATE Routine 07/07/2025 10:07 AM PAPER CUP HANDLE MACHINE OPERATOR Acquired thrombocytopenia VITAMIN B12 Routine 07/07/2025 10:07 AM PAPER CUP HANDLE MACHINE OPERATOR Acquired thrombocytopenia FERRITIN Routine 07/07/2025 10:07 AM PAPER CUP HANDLE MACHINE OPERATOR Acquired thrombocytopenia HEPATITIS B CORE ANTIBODY TOTAL Routine 07/07/2025 10:04 AM PAPER CUP HANDLE MACHINE OPERATOR Acquired thrombocytopenia SONOGRAM - COMPLETE Routine 06/20/2025 8 :49 AM CDT Thrombocytopenia affecting , antepartum (HCC) 31 weeks gestation of (HCC) Encounter for anatomic survey (HCC) Encounter for ultrasound to assess growth (HCC) from Last 3 Months Results * Sonogram - Complete (07/26/2025 8:58 AM PAPER CUP HANDLE MACHINE OPERATOR) Only the most recent of2 resultswithin the time period is included. Linked Results Indication ======== Maternal care for [...] 8 lb 2 oz EFW by Hadlock ([id number]-[id number]) accelerated Growth Overview Exam date [place] BPD [...] LMP & early U/S * Referred to [facility] for obstetrical U/S & request for consult [...] * Thank you very much for requesting [facility] participation in her obstetrical care * Findings were explained & questions were addressed & precautions were given to patient * U/S does not detect all structural, genetic & functional aayataxd-danid-aytq ental abnormalities * Telemedicine services were performed for this U/S examination & MFM consultation Patient's identity was confirmed at the [facility] office Appropriateness of the telehealth consult was confirmed Informed consent for telemedicine services was obtained & scanned into EMR Modality was secure interactive audio-video session using [employer] Patient site location was [facility] & nurse presenter was Elizabeth Ingleside Distant site provider was Odilon Oquendo MD & location was home office Others present for telemedicine consult were her partner F/U consult = 40 minutes total, including record review & counseling & coordination of care Follow-up ======== Please see above Coding ====== Diagnoses D69.6: Thrombocytopenia, Unspecified Z36.89: Encounter for other specified screening Procedures 30158: US Preg Uterus Follow Up [employer] PACS Anatomical Region Laterality Modality Other 07/26/2025 8:58 AM PAPER CUP HANDLE MACHINE OPERATOR us R Mehul Steele MD [facility] ORDERABLES Edited Result - Final * HEPATITIS C AB W/RFLX TO HCV RNA QN PCR (07/07/2025 10:07 AM PAPER CUP HANDLE MACHINE OPERATOR) Hepatitis C Antibody NON-REACTI VE NON-REACT [facility] Comment: HCV antibody was non-reactive. There is no laboratory evidence of HCV infection. In most cases, no further action is required. However, if recent HCV exposure is suspected, a test for HCV RNA (test code 82098) is suggested. For additional information please refer to http://education.Zemanta.Consulted/faq/OJG60w3 (This link is being provided for informational/ educational purposes only.) Test Performed at: [facility] [address] [place] [address] BELTRAN LARIOS MD Blood BLOOD SPECIMEN / Unknown 07/07/2025 10:07 AM PAPER CUP HANDLE MACHINE OPERATOR 07/07/2025 10:08 AM PAPER CUP HANDLE MACHINE OPERATOR Lauren Cedeno MD LAB - CHEMISTRY ORDERABLES F inal Result [facility] [address] [place] [address] * (ABNORMAL) CBC WITH DIFFERENTIAL (07/07/2025 10:07 AM PAPER CUP HANDLE MACHINE OPERATOR) Pathologist [facility] White Blood Cell Count 10.5 3.8 - [...] 0.4 % [facility] Comment: Test Performed at: [facility] [place] [place] [address] BELTRAN LARIOS MD Blood BLOOD SPECIMEN / Unknown 07/07/2025 10:07 AM PAPER CUP HANDLE MACHINE OPERATOR 07/07/2025 10:08 AM PAPER CUP HANDLE MACHINE OPERATOR Lauren Cedeno MD LAB - HEMATOLOGY ORDERABLES Final Result Performing Organization Address City/[facility]/ZIP Co de Phone Number [facility] [address] [place] [address] * (ABNORMAL) COMPREHENSIVE METABOLIC PANEL (07/07/2025 10:07 AM PAPER CUP HANDLE MACHINE OPERATOR) Pathologist [facility] Glucose 72 65 - 99 mg/dL [facility] [...] 29 U/L [facility] Comment: Test Performed at: [facility] [id number] [place] [address] BELTRAN LARIOS MD Blood BLOOD SPECIMEN / Unknown 07/07/2025 10:07 AM PAPER CUP HANDLE MACHINE OPERATOR 07/07/2025 10:08 AM PAPER CUP HANDLE MACHINE OPERATOR Lauren Cedeno MD LAB - CHEMISTRY ORDERABLES F inal Result Performing Organization Address City/[facility]/ZIP Co de Phone Number [facility] [address] [place] [address] * HEPATITIS B SURFACE ANTIBODY (07/07/2025 10:07 AM PAPER CUP HANDLE MACHINE OPERATOR) [facility] Hepatitis B Virus Surface Antibody NON-REACTI VE NON-REACT K[facility]HIK [facility] Comment: Test Performed at: [facility] [address] [place] [address] BELTRAN LARIOS MD Blood BLOOD SPECIMEN / Unknown 07/07/2025 10:07 AM PAPER CUP HANDLE MACHINE OPERATOR 07/07/2025 10:08 AM PAPER CUP HANDLE MACHINE OPERATOR Lauren Cedeno MD LAB - CHEMISTRY ORDERABLES F inal Result Performing Organization Address [facility] [place] [address] * FOLATE (07/07/2025 10:07 AM PAPER CUP HANDLE MACHINE OPERATOR) Folate 20.4 ng/mL [facility] Comment: Reference Range Low: <3.4 Borderline: 3.4-5.4 Normal: >5.4 Test Performed at: [facility] [place] [address] BELTRAN LARIOS MD Blood BLOOD SPECIMEN / Unknown 07/07/2025 10:07 AM PAPER CUP HANDLE MACHINE OPERATOR 07/07/2025 10:08 AM PAPER CUP HANDLE MACHINE OPERATOR Lauren Cedeno MD LAB - CHEMISTRY ORDERABLES F inal Result Performing Organization Address [facility] [place] [address] * (ABNORMAL) VITAMIN B12 (07/07/2025 10:07 AM PAPER CUP HANDLE MACHINE OPERATOR) Vitamin B12 158(L) 200 - 1100 pg/mL [facility] Comment: Test Performed at: [employer] [address] BELTRAN LARIOS MD Blood BLOOD SPECIMEN / Unknown 07/07/2025 10:07 AM PAPER CUP HANDLE MACHINE OPERATOR 07/07/2025 10:08 AM PAPER CUP HANDLE MACHINE OPERATOR Lauren Cedeno MD LAB - CHEMISTRY ORDERABLES F inal Result Performing Organization Address [facility] [place] [address] * HEPATITIS B CORE ANTIBODY IGM (07/07/2025 10:07 AM PAPER CUP HANDLE MACHINE OPERATOR) Pathologist [facility] Hepatitis B Core Virus Antibody IgM NON-REACTI VE NON-REACT [facility]HIK [facility] Comment: For additional information, please refer to http://Avtodoria.SalesGossip/faq/EIO431 (This link is being provided for informational/ educational purposes only.) Test Performed at: [facility] [address] [place] [address] BELTRAN LARIOS MD Blood BLOOD SPECIMEN / Unknown 07/07/2025 10:07 AM PAPER CUP HANDLE MACHINE OPERATOR 07/07/2025 10:08 AM PAPER CUP HANDLE MACHINE OPERATOR Lauren Cedeno MD LAB - CHEMISTRY ORDERABLES F inal Result Performing Organization Address [facility] de Phone Number [facility] [id number] [place] [address] * (ABNORMAL) FERRITIN (07/07/2025 10:07 AM PAPER CUP HANDLE MACHINE OPERATOR) Pathologist [facility] Ferritin 6(L) 16 - 154 ng/mL [facility] Comment: Test Performed at: [facility] [address] [place], [place] [address] BELTRAN LARIOS MD Blood BLOOD SPECIMEN / Unknown 07/07/2025 10:07 AM PAPER CUP HANDLE MACHINE OPERATOR 07/07/2025 10:08 AM PAPER CUP HANDLE MACHINE OPERATOR Lauren Cedeno MD LAB - CHEMISTRY ORDERABLES F inal Result Performing Organization Address [facility] [place] [address] * HEPATITIS B CORE ANTIBODY TOTAL (07/07/2025 10:04 AM PAPER CUP HANDLE MACHINE OPERATOR) Pathologist [facility] Hepatitis B Core Virus Antibody Total NON-REACTI VE NON-REACT KAUSHIK [facility] Comment: For additional information, please refer to http://Avtodoria.SalesGossip/faq/JBA374 (This link is being provided for informational/ educational purposes only.) Test Performed at: [facility] [place] [address] BELTRAN LARIOS MD Blood BLOOD SPECIMEN / Unknown 07/07/2025 10:04 AM PAPER CUP HANDLE MACHINE OPERATOR 07/07/2025 10:08 AM PAPER CUP HANDLE MACHINE OPERATOR Lauren Cedeno MD LAB - CHEMISTRY ORDERABLES F inal Result [facility] [address] [place] [address] from Last 3 Months Insurance [facility] [address] [place] [address] ANTHEM ANTHEM ANTHEM ANTHEM ANTHEM ANTHEM ANTHEM ANTHEM ANTHEM ANTHEM * Guarantor: GABBY SARMIENTO Account Type Relation to Patient Date of Phone Billing Address Personal/Family Other Care Teams Spares Scheduler Relationship Specialty Start Date End Date Ale Cueva MD [address] [facility] [address] [place] [address] PCP - General 02/03/18 Ale Cueva MD [facility] [address] [address] Pediatrics 02/03/18
[2025-07-26 12:15] LABS: Hematocrit 37.0 % (37.0-47.0); Hemoglobin 12.4 g/dL (12.0-15.0); Immature Granulocyte Percent A 1.8 % (0-0.5); Immature Platelet Fraction Pct 17.5 % (0.9-11.2); Lymphocytes Absolute Auto 1.58 K/mm3 (0.9-3.2); Mean Corpuscular HGB Conc 33.5 g/dl (32-36); Mean Corpuscular Hemoglobin 30.8 pg (26-34); Mean Corpuscular Volume 91.8 fl (80-100); Nucleated Red Blood Cells Absolute Auto 0.000 K/mm3 (0.0-0.012); Nucleated Red Blood Cells Perc 0.0 % (0.0-0.2); Platelet Count Result 103 k/mm3 (150-375); Red Blood Count 4.03 M/mm3 (4.2-5.4); White Blood Count 12.2 K/mm3 (4.5-10.0)
[2025-07-26 12:42] LABS: Glucose 1 Hour PP 50gm Dose 88 mg/dL
== END 2025-07-26 10:37 | disposition home or self-care (01) ==
LOC: ANHLAB 10:39
PROVIDERS: Visit Provider Obstetrics & Gynecology Maternal & Fetal Medicine
DX: O99.119 Other diseases of the blood and blood-forming organs and certain disorders involving the immune mechanism complicating pregnancy, unspecified trimester (principal); D69.6 Thrombocytopenia, unspecified; O09.619 Supervision of young primigravida, unspecified trimester; Z3A.00 Weeks of gestation of pregnancy not specified
CPT/HCPCS: 36415; 82947; 85025; 85055

== ENCOUNTER 2025-08-14 15:37 | Inpatient (IN) | payer BC, OTHER, SELFPAY ==
[2025-08-14] VITALS (29 sets, daily range): BP systolic 102–123; BP diastolic 59–100; PULSE 74–101; BMI 28.5
--- OUTSIDE RECORDS SUMMARY | 2025-08-14 07:26 | XMS_ITS | Encounter Summary ---
Author Organization [facility] Address [address] [place] [address] Care Team Providers Care Media Marketing Manager Name Role Phone Ale Cueva MD Primary Care Provider [phone] Ale Cueva MD Unavailable [phone] Reason for Referral * (Routine) - Open Specialty Diagnoses / Procedures Referred By Contac t Referred To Contact Diagnoses Encounter for ultrasound to assess growth (HCC) Low serum vitamin B12 Thrombocytopenia affecting , antepartum (HCC) Supervision of high-risk of young primigravida (HCC) 39 weeks gestation of (HCC) Procedures Sonogram - Complete Leno Steele MD [address] [place] [address] Phone: tel: fax: Referral ID Status Reason Start Date Expiration Date Visits Re quested Visits Authorized [id number] Open 08/07/2025 08/07/2026 1 1 TAL MARKETING EXECUTIVE * (Routine) - Open Specialty Diagnoses / Procedures Referred By Contac t Referred To Contact Diagnoses Encounter for ultrasound to assess growth (HCC) Low serum vitamin B12 Thrombocytopenia affecting , antepartum (HCC) Supervision of high-risk of young primigravida (HCC) 39 weeks gestation of (HCC) Procedures Sonogram - Complete Leno Steele MD [address] [place] [address] Phone: tel: fax: Referral ID Status Reason Start Date Expiration Date Visits Re quested Visits Authorized [id number] Open 08/07/2025 08/07/2026 1 1 TAL MARKETING EXECUTIVE Reason for Visit * Reason Comments Ultrasound * Consultation (Routine) - Closed Specialty Diagnoses / Procedures Referred By Contac t Referred To Contact Maternal Medicine Diagnoses Low serum vitamin B12 Thrombocytopenia affecting , antepartum (HCC) 37 weeks gestation of ([facility]) Supervision of high-risk of young primigravida ([facility]) Leno Steele MD [address] [place] [address] Phone: tel: fax: [facility] [address] [place] [phone] Phone: tel: fax: Referral ID Status Reason Start Date Expiration Date V isits Requested Visits Authorized [id number] Closed Specialty Services Required 2025 2026 3 3 Encounter Details Date Type Department Care Team (Late st Contact Info) Description 08/14/2025 7:26 AM DIGITAL MARKETING EXECUTIVE Hospital Encounter [facility] [address] [place] [address] Sherrie He MD [facility] [address] [address] Social History Tobacco Use Types Packs/Day Years [...] care, and heating? Not very hard 07/07/2025 [facility] [place] [facility] Occupat ional Health - Occupational Stress [...] any time in the past 12 m [facility], were you homeless or living in a long-term (including now)? No 07/07/2025 Education Answer Date Recorded What is the highest level of school you have completed or the highest degree you have received? 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 on file Not on file Not on file documented as of this encounter Plan of Treatment Upcoming Encounters Date Type Department Care Team (Late st Contact Info) Description 10/12/2025 10:20 AM DIGITAL MARKETING EXECUTIVE Office Visit [facility] - Hematology/Oncology [address] [place] [id number] Lauren Cedeno MD [address] [place] [address] documented as of this encounter Procedures Procedure Name Priority Date/Time Associated Diagnosis Comments SONOGRAM - COMPLETE Routine 08/14/2025 7:41 AM DIGITAL MARKETING EXECUTIVE Encounter for ultrasound to assess growth (HCC) Low serum vitamin B12 Thrombocytopenia affecting , antepartum (HCC) Supervision of high-risk of young primigravida (HCC) 39 weeks gestation of (HCC) documented in this encounter Results * Sonogram - Complete (08/14/2025 7:41 AM DIGITAL MARKETING EXECUTIVE) Linked Results Indication ======== Maternal care for excessive growth Thrombocytopenia, unspecified History ====== OB History 1. Para 0 [id number] Maternal Assessment Physical Exam Height 170 cm, 5 ft 7 in. Weight 84 kg, 186 lb. Initial weight 68 kg, 149 lb. BMI 29.13 kg/m . Initial BMI 23.34 kg/m . Weight gain 17 kg, 37 lb Method ====== Transabdominal ultrasound. View: Sufficient ========= Caba . Number of fetuses: 1 Dating ====== Date Details Gest. age CLARENCE LMP 11/14/2024 39 w + 0 d 08/21/2025 Stated CLARENCE 39 w + 0 d 08/21/2025 Previous U/S 01/13/2025 GA, GA 8 w + 3 d 38 w + 6 d 08/22/2025 U/S 08/14/2025 based upon BPD, Femur 39 w + 3 d 08/18/2025 Assigned dating based on the LMP, selected on 07/26/2025 39 w + 0 d 08/21/2025 General Evaluation Cardiac activity present. FHR 145 bpm. Presentation: cephalic Placenta: Placental site: anterior Amniotic fluid: Amount of AF: normal. BLANK 7.6 cm. Q1 4.9 cm, Q2 0.0 cm, Q3 0.0 cm, Q4 2.7 cm Biometry BPD 100.1 mm 41w 1d >99% Hadlock HC 360.2 mm -/- 96% Hadlock AC 383.1 mm -/- >99% Hadlock Femur 73.8 mm 37w 5d 26% Hadlock Humerus 65.2 mm 37w 6d 53% Patrick HC / AC 0.94 Weight Calculation: EFW 4,303 g 97% Hadlock EFW (lb,oz) 9 lb 8 oz EFW by Hadlock (HC-AC-FL) Growth Overview Exam date GA BPD (mm) HC (mm) AC (mm) FL (mm) HL (mm) EFW (g) 06/20/2025 31w 1d 87.7 >99% 318.4 >99% 291 93% 60.5 45% 55.3 80% 2118 92% 07/26/2025 36w 2d 98.4 >99% 352.7 99% 356.7 >99% 70.4 41% 60.2 35% 3694 98% 08/14/2025 39w 0d 100.1 >99% 360.2 96% 383.1 >99% 73.8 26% 65.2 53% 4303 97% Anatomy The following structures appear normal: Abdomen Stomach. Kidneys. Bladder. Impression ========= 1) Caba gestation, 39w0d 2) The accuracy of weight estimates is highly limited at term and at heavier weights but macrosomia is suspected based on today's biometry 3) The amniotic fluid volume is within normal limits Comment ======== ultrasound alone cannot detect all structural, genetic, or functional , placental, or maternal abnormalities Follow-up ======== Close maternal movement monitoring while awaiting admission for delivery (scheduled this evening) Coding ====== Diagnoses Z36.89: Encounter for other specified screening O36.63X0: Maternal care for excessive growth Procedures 05482: US Preg [facility]us [facility] Anatomical Region Laterality Modality Other 08/14/2025 7:41 AM DIGITAL MARKETING EXECUTIVE us R Mehul Steele MD [facility] ORDERABLES Edited Result - Final documented in this encounter Visit Diagnoses Diagnosis Encounter for ultrasound to assess growth (HCC)- Primary Low serum vitamin B12 Thrombocytopenia affecting , antepartum (HCC) Supervision of high-risk of young primigravida (HCC) Supervision of high-risk of young primigravida 39 weeks gestation of (HCC) state, incidental documented in this encounter Care Teams Media Marketing Manager Relationship Specialty Start Date End Date Ale Cueva MD [address] [facility] [address] [place] [address] PCP - General 02/03/18 Ale Cueva MD [address] [facility] [address] [place] [address] Pediatrics 02/03/18 documented as of this encounter
--- NOTE | 2025-08-14 16:18 | LDADM ---
This patient, Gabby Jose, was admitted to Labor/Delivery/Recovery 103 on 08/14/25 at 15:37. Plans for labor, pain management and were discussed with patient. Patient/family oriented to hospital policies and general routines including ID bracelet, bed and alarms, visiting hours, pain management, procedures, bathroom and other care routines, personal items, smoking policy, room service/diet and guest tray routines, infant security routines, and visiting hours. Patient/Family are encouraged to report perceived risks to care and to ask questions if they do not understand what they are told or what they should do. See OBIX for further documentation.
[2025-08-14 16:23] LABS: Hematocrit 38.8 % (37.0-47.0); Hemoglobin 13.8 g/dL (12.0-15.0); Immature Granulocyte Percent A 1.0 % (0-0.5); Lymphocytes Absolute Auto 1.66 K/mm3 (0.9-3.2); Mean Corpuscular HGB Conc 35.6 g/dl (32-36); Mean Corpuscular Hemoglobin 31.7 pg (26-34); Mean Corpuscular Volume 89.2 fl (80-100); Nucleated Red Blood Cells Absolute Auto 0.000 K/mm3 (0.0-0.012); Nucleated Red Blood Cells Perc 0.0 % (0.0-0.2); Platelet Count Result 108 k/mm3 (150-375); Red Blood Count 4.35 M/mm3 (4.2-5.4); White Blood Count 11.5 K/mm3 (4.5-10.0)
[2025-08-14 17:08] LABS: Syphilis IgG/IgM Antibody Non-Reactive (Nonreactive)
--- OUTSIDE RECORDS SUMMARY | 2025-08-14 17:57 | XMS_ITS | Clinical Summary ---
Author Organization [address] Address [address] [facility] [facility] [place] [address] Care Team Providers Care Garment Form Assembler Name Role Phone No, Physician Primary Care [...] Plan of Treatment Not on file Insurance [employer] ACCESS OOS [employer] OOS Care Teams Garment Form Assembler Relationship Specialty Start Date End Date No, Physician PCP - General 01/23/22
--- OUTSIDE RECORDS SUMMARY | 2025-08-14 17:57 | XMS_ITS | Continuity of Care Document ---
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 Plan of Treatment Reminders Order Date Submit Date Provider Last Modified By Organization Details Last Modified Time Details Appointments INDUCTION 2024 04:00P Cosmo TOMLINSON MD Not available Not available Not available Lab CBC w/ auto diff 2024 025 [facility] (Lab), [address], [place], [address], 05/31/2025 12:26:07 Referral None recorded. Procedures None recorded. Surgeries None recorded. Imaging None recorded. Medication Orders None recorded. Patient TargetsNo targets recorded. Patient InstructionsNo instructions recorded. Reason for Referral None Reported. Results Created Date Observation Date Name Description Value Unit Range Abnormal Flag Note LastModifiedBy Organization Detail LastModifiedTime 02/17/2002/16/2025 [UNIT Y] ANEUP LOIDY NIPT fraction 15.3% normal Not Available [facility] [address], [place], [address], 02/16/2025 19:59:32 02/17/20 25 02/16/2025 [UNIT Y] ANEUP LOIDY NIPT 22Q11.2 microdeletio n LOW RISK <1 in 10,000 normal Not Available [facility] [address], [place], [address], 02/16/2025 19:59:32 02/17/20 25 02/16/2025 [UNIT Y] ANEUP LOIDY NIPT sex chromosome aneuploidy NOT DETECT ED normal Not Available [facility] [address], [place], [address], 02/16/2025 19:59:32 02/17/20 25 02/16/2025 [UNIT Y] ANEUP LOIDY NIPT monosomy X LOW RISK <1 in 10,000 normal Not Available [facility] [address], [place], [address], 02/16/2025 19:59:32 02/17/20 25 02/16/2025 [UNIT Y] ANEUP LOIDY NIPT trisomy 13 LOW RISK <1 in 10,000 normal Not Available [facility] [address], [place], [address], 02/16/2025 19:59:32 02/17/20 25 02/16/2025 [UNIT Y] ANEUP LOIDY NIPT trisomy 18 LOW RISK <1 in 10,000 normal Not Available [facility] [address], [place], [address], 02/16/2025 19:59:32 02/17/20 25 02/16/2025 [UNIT Y] ANEUP LOIDY NIPT trisomy 21 LOW RISK <1 in 10,000 normal Not Available [facility] [address], [place], [address], 02/16/2025 19:59:32 02/17/20 25 02/16/2025 [UNIT Y] ANEUP LOIDY NIPT sex MALE normal Not Available [facility] [address], [place], [address], 02/16/2025 19:59:32 02/17/20 25 02/16/2025 [UNIT Y] ANEUP LOIDY NIPT gestation SINGLE TON normal Not Available [facility] [address], [place], [address], 02/16/2025 19:59:32 02/17/20 25 02/16/2025 [UNIT Y] ANEUAnuradha AUGUSTINT for detailed report, see pdf See PDF normal Not Available [facility] [address], [place], [address], 02/16/2025 19:59:32 02/22/20 25 02/21/2025 [UNIT Y] FLETCHER Rose sickle cell disease/beta -thalassemia /hemoglobino pathies carrier screen NEGATI VE normal Not Available [facility] [address], [place], [address], 02/21/2025 14:09:41 02/22/20 25 02/21/2025 [UNIT Y] FLETCHER Rose alpha-thalas semia carrier screen NEGATI VE normal Not Available [facility] [address], [place], [address], 02/21/2025 14:09:41 02/22/20 25 02/21/2025 [UNIT Y] FLETCHER Rose cystic fibrosis carrier screen NEGATI VE normal Not Available [facility] [address], [place], [address], 02/21/2025 14:09:41 02/22/20 25 02/21/2025 [UNIT Y] FLETCHER Rose spinal muscular atrophy carrier screen NEGATI VE 2 SMN1 copies , SNP not presen t normal Not Available [facility] [address], [place], [address], 02/21/2025 14:09:41 02/22/20 25 02/21/2025 [UNIT Y] FLETCHER Rose for detailed report, see pdf See PDF normal Not Available [facility] [address], [place], [address], 02/21/2025 14:09:41 02/11/2002/10/2025 CT/GC AND TRICH OMONA S VAGIN KARLO (RRNA ), URINE chlamydia trachomatis, PCR Negati ve negati ve Not Available [facility] (Lab) [address], [place], [address], 02/11/2025 12:05:33 02/11/20 25 02/10/2025 CT/GC AND TRICH OMONA S VAGIN KARLO (RRNA ), URINE neisseria gonorrhoeae, PCR Negati ve negati ve Not Available [facility] (Lab) [address], [place], [address], 02/11/2025 12:05:33 02/11/2002/10/2025 CT/GC AND TRICH OMONA S VAGIN KARLO (RRNA ), URINE trichomonas vaginalis ribosomal RNA (rrna) Negati ve negati ve Not Available [facility] (Lab) [address], [place], [address], 02/11/2025 12:05:33 02/11/20 25 02/10/2025 CBC W/DIF F WBC 8.7 10'3/ uL 3.5-10 .5 Not Available [facility] (Lab) [address], [place], [address], 02/11/2025 13:44:37 02/11/20 25 02/10/2025 CBC W/DIF F RBC 4.55 10'6/ uL (based on docume nted legal sex) 3.80-5 .20 Not Available [facility] (Lab) [address], [place], [address], 02/11/2025 13:44:37 02/11/20 25 02/10/2025 CBC W/DIF F HGB 13.7 g/dL (based on docume nted legal sex) 11.6-1 5.4 Not Available [facility] (Lab) [address], [place], [address], 02/11/2025 13:44:37 02/11/20 25 02/10/2025 CBC W/DIF F HCT 40.8 % (based on docume nted legal sex) 34.0-4 5.0 Not Available [facility] (Lab) [address], [place], [address], 02/11/2025 13:44:37 02/11/20 25 02/10/2025 CBC W/DIF F MCV 89.7 fL 80.0-9 9.0 Not Available [facility] (Lab) [address], [place], [address], 02/11/2025 13:44:37 02/11/20 25 02/10/2025 CBC W/DIF F MCH 30.1 pg 27.0-3 4.0 Not Available [facility] (Lab) [address], [place], [address], 02/11/2025 13:44:37 02/11/20 25 02/10/2025 CBC W/DIF F MCHC 33.6 g/dL 32.0-3 5.5 Not Available [facility] (Lab) [address], [place], [address], 02/11/2025 13:44:37 02/11/20 25 02/10/2025 CBC W/DIF F RDW 12.8 % 11.0-1 5.0 Not Available [facility] (Lab) [address] , [place], [address], 02/11/2025 13:44:37 02/11/20 25 02/10/2025 CBC W/DIF F plt 125 10'3/ uL 150-40 0 low Not Available [facility] (Lab) [address] [place], [address], 02/11/2025 13:44:37 02/11/20 25 02/10/2025 CBC W/DIF F MPV 13.5 fL 8.8-12 .1 high Not Available [facility] (Lab) [address], [place], [address], 02/11/2025 13:44:37 02/11/20 25 02/10/2025 CBC W/DIF F NRBC's 0.0 % 0.0 Not Available [facility] (Lab) [address], [place], [address], 02/11/2025 13:44:37 02/11/20 25 02/10/2025 CBC W/DIF F absolute NRBCs 0.0 10'3/ uL no refere nce range establ ished Not Available [facility] (Lab) [address], [place], [address], 02/11/2025 13:44:37 02/11/20 25 02/10/2025 CBC W/DIF F neutrophils 76.5 % 34.0-7 3.0 high Not Available [facility] (Lab) [address], [place], [address], 02/11/2025 13:44:37 02/11/20 25 02/10/2025 CBC W/DIF F lymphocytes 14.4 % 15.0-5 0.0 low Not Available [facility] (Lab) [address], [place], [address], 02/11/2025 13:44:37 02/11/20 25 02/10/2025 CBC W/DIF F monocytes 8.3 % 1.0-15 .0 Not Available [facility] (Lab) [address], [place], [address], 02/11/2025 13:44:37 02/11/20 25 02/10/2025 CBC W/DIF F eosinophils 0.3 % 0.0-8. 0 Not Available [facility] (Lab) [address] [place], [address], 02/11/2025 13:44:37 02/11/20 25 02/10/2025 CBC W/DIF F basophils 0.3 % 0.0-2. 0 Not Available [facility] (Lab) [address], [place], [address], 02/11/2025 13:44:37 02/11/2002/10/2025 CBC W/DIF F immature granulocytes 0.2 % no define d refere nce range Immat ure Granu locyt es (IG) repre sents autom ated enume ratio n of Metam yeloc ytes, Myelo cytes and Promy elocy umair when IG is < 5%. Blast s are not inclu ded in IG and repor alfredo separ ately if prese nt. Not Available [facility] (Lab) [address], [place], [address], 02/11/2025 13:44:37 02/11/20 25 02/10/2025 CBC W/DIF F absolute neutrophils 6.6 10'3/ uL 1.5-8. 0 Not Available [facility] (Lab) [address], [place], [address], 02/11/2025 13:44:37 02/11/20 25 02/10/2025 CBC W/DIF F absolute lymphocytes 1.3 10'3/ uL 1.0-4. 0 Not Available [facility] (Lab) [address], [place], [address], 02/11/2025 13:44:37 02/11/20 25 02/10/2025 CBC W/DIF F absolute monocytes 0.7 10'3/ uL 0.2-1. 0 Not Available [facility] (Lab) [address], [place], [address], 02/11/2025 13:44:37 02/11/20 25 02/10/2025 CBC W/DIF F absolute eosinophils 0.0 10'3/ uL 0.0-0. 6 Not Available [facility] (Lab) [address], [place], [address], 02/11/2025 13:44:37 02/11/20 25 02/10/2025 CBC W/DIF F absolute basophils 0.0 10'3/ uL 0.0-0. 3 Not Available [facility] (Lab) [address], [place], [address], 02/11/2025 13:44:37 02/11/20 25 02/10/2025 CBC W/DIF [...] the indiv idual patie nt: https :[email or web address] and book. nm.or g/gen derx Not Available [facility] (Lab) [address], [place], [address], 02/11/2025 13:44:37 02/11/20 25 02/10/2025 HIV 1/2 ANTIG EN/AN TIBOD Y, REFLE X CONFI RMATI ON HIV antigen/anti body Nonrea ctive nonrea ctive HIV-1 antig en and HIV-1 /HIV- 2 antib odies were not detec alfredo. No labor atory evide nce of HIV infec tion. Not Available [facility] (Lab) [address], [place], [address], 02/11/2025 13:44:38 02/11/2002/10/2025 HEPAT ITIS B SURFA CE ANTIG EN hepatitis B surface antigen Non-re active non-re active This assay was perfo rmed using [employer] ratio n reage nts and test kits. Value s obtai evelyn with other assay metho ds or kits canno t be used inter collins eably . Not Available [facility] (Lab) [address], [place], [address], 02/11/2025 13:44:38 02/11/2002/10/2025 HEPAT ITIS C ANTIB TIM SCREE N, REFLE X TO CONFI RMATI ON hepatitis C antibody Non-re active non-re active Antib odies to HCV Not Detec alfredo, does not exclu de the possi bilit y of expos ure to HCV. Not Available [facility] (Lab) [address], [place], [address], 02/11/2025 13:44:39 02/11/20 25 02/10/2025 RUBEL LA IGG ANTIB TIM, QUANT rubella antibodies, IgG Reacti ve reacti ve Not Available [facility] (Lab) [address], [place], [address], 02/11/2025 13:44:39 02/11/20 25 02/10/2025 RUBEL LA IGG ANTIB TIM, QUANT rubella antibodies, IgG quant 47.1 IU/mL >=10 Non-r eacti ve (Non- Immun e) <10 IU/mL React kvng (Immu ne) > or = 10 IU/mL Not Available [facility] (Lab) [address] [place], [address], 02/11/2025 13:44:39 02/11/20 25 02/10/2025 TYPE/ RH/SC REEN ABO/Rh type O POS Not Available [facility] (Lab) [address], [place], [address], 02/11/2025 13:44:40 02/11/2002/10/2025 TYPE/ RH/SC REEN antibody screen NEG Not Available [facility] (Lab) [address], [place], [address], 02/11/2025 13:44:40 02/11/20 25 02/10/2025 TYPE/ RH/SC REEN exp date 2024 23:59 Not Available [facility] (Lab) [address], [place], [address], 02/11/2025 13:44:40 02/11/20 25 02/10/2025 HEMOG LOBIN [...] >8.0% Actio n sugge sted Not Available [facility] (Lab) [address], [place], [address], 02/11/2025 13:44:40 02/11/20 25 02/10/2025 RPR SCREE N, REFLE X TITER /CONF IRMAT ION RPR qualitative Nonrea ctive nonrea ctive Not Available [facility] (Lab) [address], [place], [address], 02/11/2025 13:44:41 02/11/20 25 02/10/2025 drug scree n, urine Amphetamines : negati ve Not Available [place] [address], [place], [address], 02/10/2025 12:55:20 02/11/20 25 02/10/2025 drug scree n, urine Cannabinoids : negati ve Not Available [place] [address], [place], [address], 02/10/2025 12:55:20 02/11/20 25 02/10/2025 drug scree n, urine Cocaine: negati ve Not Available [place] [address], [place], [address], 02/10/2025 12:55:20 02/11/20 02/10/2025 drug scree n, urine Opiates: negati ve Not Available [place] [address], [place], [address], 02/10/2025 12:55:20 02/11/20 25 02/10/2025 drug scree n, urine Barbiturates : negati ve Not Available [place] [address], [place], [address], 02/10/2025 12:55:20 02/11/20 25 02/10/2025 drug scree n, urine Benzodiazepi john: negati ve Not Available [place] [address], [place], [address], 02/10/2025 12:55:20 03/10/20 25 03/10/2025 CULTU RE: URINE result report SEE RESULT S BELOW Test: Cultu re: Urine Speci men Sourc e: Urine Voide d Speci men Type: Urine Speci men Date: 2024 0938 Resul t Date: 20242 Resul t Statu s: Final resul t Abnor mal: No Resul ting Lab: [facility] [address] [place] [address] Tel: CULTU RE ----- ----- ----- --- No growt h in 1 day (dete ction level of 10,00 0 colon ies / ml.) Not Available [facility] (Lab) [address] [place], [address], 03/11/2025 23:15:50 04/03/20 25 04/03/2025 CBC W/DIF F WBC 12.9 10'3/ uL 3.5-10 .5 high Not Available [facility] (Lab) [address], [place], [address], 04/04/2025 04:39:51 04/03/20 25 04/03/2025 CBC W/DIF F RBC 4.33 10'6/ uL (based on docume nted legal sex) 3.80-5 .20 Not Available [facility] (Lab) [address], [place], [address], 04/04/2025 04:39:51 04/03/2004/03/2025 CBC W/DIF F HGB 13.2 g/dL (based on docume nted legal sex) 11.6-1 5.4 Not Available [facility] (Lab) [address], [place], [address], 04/04/2025 04:39:51 04/03/2004/03/2025 CBC W/DIF F HCT 40.2 % (based on docume nted legal sex) 34.0-4 5.0 Not Available [facility] (Lab) [address], [place], [address], 04/04/2025 04:39:51 04/03/2004/03/2025 CBC W/DIF F MCV 92.8 fL 80.0-9 9.0 Not Available [facility] (Lab) [address], [place], [address], 04/04/2025 04:39:51 04/03/2004/03/2025 CBC W/DIF F MCH 30.5 pg 27.0-3 4.0 Not Available [facility] (Lab) [address] [place], [address], 04/04/2025 04:39:51 04/03/2004/03/2025 CBC W/DIF F MCHC 32.8 g/dL 32.0-3 5.5 Not Available [facility] (Lab) [address] [place], [address], 04/04/2025 04:39:51 04/03/20 25 04/03/2025 CBC W/DIF F RDW 13.0 % 11.0-1 5.0 Not Available [facility] (Lab) [address] [place], [address], 04/04/2025 04:39:51 04/03/2004/03/2025 CBC W/DIF F plt 131 10'3/ uL 150-40 0 low Not Available [facility] (Lab) [address], [place], [address], 04/04/2025 04:39:51 04/03/2004/03/2025 CBC W/DIF F MPV 13.9 fL 8.8-12 .1 high Not Available [facility] (Lab) [address], [place], [address], 04/04/2025 04:39:51 04/03/2004/03/2025 CBC W/DIF F NRBC's 0.0 % 0.0 Not Available [facility] (Lab) [address], [place], [address], 04/04/2025 04:39:51 04/03/2004/03/2025 CBC W/DIF F absolute NRBCs 0.0 10'3/ uL no refere nce range establ ished Not Available [facility] (Lab) [address], [place], [address], 04/04/2025 04:39:51 04/03/2004/03/2025 CBC W/DIF F neutrophils 76.6 % 34.0-7 3.0 high Not Available [facility] (Lab) [address], [place], [address], 04/04/2025 04:39:51 04/03/2004/03/2025 CBC W/DIF F lymphocytes 14.2 % 15.0-5 0.0 low Not Available [facility] (Lab) [address], [place], [address], 04/04/2025 04:39:51 04/03/2004/03/2025 CBC W/DIF F monocytes 7.6 % 1.0-15 .0 Not Available [facility] (Lab) [address], [place], [address], 04/04/2025 04:39:51 04/03/20 25 04/03/2025 CBC W/DIF F eosinophils 0.7 % 0.0-8. 0 Not Available [facility] (Lab) [address], [place], [address], 04/04/2025 04:39:51 04/03/20 25 04/03/2025 CBC W/DIF F basophils 0.4 % 0.0-2. 0 Not Available [facility] (Lab) [address], [place], [address], 04/04/2025 04:39:51 04/03/20 25 04/03/2025 CBC W/DIF [...] separ ately if prese nt. Not Available [facility] (Lab) [address], [place], [address], 04/04/2025 04:39:51 04/03/2004/03/2025 CBC W/DIF F absolute neutrophils 9.9 10'3/ uL 1.5-8. 0 high Not Available [facility] (Lab) [address], [place], [address], 04/04/2025 04:39:51 04/03/2004/03/2025 CBC W/DIF F absolute lymphocytes 1.8 10'3/ uL 1.0-4. 0 Not Available [facility] (Lab) [address], [place], [address], 04/04/2025 04:39:51 04/03/20 25 04/03/2025 CBC W/DIF F absolute monocytes 1.0 10'3/ uL 0.2-1. 0 Not Available [facility] (Lab) [address], [place], [address], 04/04/2025 04:39:51 04/03/2004/03/2025 CBC W/DIF F absolute eosinophils 0.1 10'3/ uL 0.0-0. 6 Not Available [facility] (Lab) [address] [place], [address], 04/04/2025 04:39:51 04/03/2004/03/2025 CBC W/DIF F absolute basophils 0.1 10'3/ uL 0.0-0. 3 Not Available [facility] (Lab) [address], [place], [address], 04/04/2025 04:39:51 04/03/2004/03/2025 CBC W/DIF F absolute [...] calzada book. nm.or g/gen derx Not Available [facility] (Lab) [address], [place], [address], 04/04/2025 04:39:51 05/02/2005/02/2025 CULTU RE: URINE result report SEE RESULT S BELOW Test: Cultu re: Urine Speci men Sourc e: Urine - Clean Catch Speci men Type: Urine Speci men Date: 1502 Resul t Date: 0404 Resul t Statu s: Final resul t Abnor mal: No Resul ting Lab: [facility] [address] [facility] [place] [address] Tel: CULTU RE ----- ----- ----- --- No growt h in 1 day (dete ction level of 10,00 0 colon ies / ml.) Not Available [facility] (Lab) [address], [place], [address], 05/04/2025 05:09:17 05/30/2005/30/2025 CBC W/DIF F WBC 11.9 10'3/ uL 3.5-10 .5 high Not Available [facility] (Lab) [address], [place], [address], 05/31/2025 12:26:07 05/30/20 25 05/30/2025 CBC W/DIF F RBC 3.98 10'6/ uL (based on docume nted legal sex) 3.80-5 .20 Not Available [facility] (Lab) [address], [place], [address], 05/31/2025 12:26:07 05/30/20 25 05/30/2025 CBC W/DIF F HGB 12.4 g/dL (based on docume nted legal sex) 11.6-1 5.4 Not Available [facility] (Lab) [address], [place], [address], 05/31/2025 12:26:07 05/30/20 25 05/30/2025 CBC W/DIF F HCT 36.8 % (based on docume nted legal sex) 34.0-4 5.0 Not Available [facility] (Lab) [address], [place], [address], 05/31/2025 12:26:07 05/30/20 25 05/30/2025 CBC W/DIF F MCV 92.5 fL 80.0-9 9.0 Not Available [facility] (Lab) [address], [place], [address], 05/31/2025 12:26:07 05/30/20 25 05/30/2025 CBC W/DIF F MCH 31.2 pg 27.0-3 4.0 Not Available [facility] (Lab) [address], [place], [address], 05/31/2025 12:26:07 05/30/20 25 05/30/2025 CBC W/DIF F MCHC 33.7 g/dL 32.0-3 5.5 Not Available [facility] (Lab) [address], [place], [address], 05/31/2025 12:26:07 05/30/20 25 05/30/2025 CBC W/DIF F RDW 13.4 % 11.0-1 5.0 Not Available [facility] (Lab) [address], [place], [address], 05/31/2025 12:26:07 05/30/20 25 05/30/2025 CBC W/DIF F plt 113 10'3/ uL 150-40 0 low Not Available [facility] (Lab) [address], [place], [address], 05/31/2025 12:26:07 05/30/20 25 05/30/2025 CBC W/DIF F MPV 13.8 fL 8.8-12 .1 high Not Available [facility] (Lab) [address], [place], [address], 05/31/2025 12:26:07 05/30/20 25 05/30/2025 CBC W/DIF F NRBC's 0.0 % 0.0 Not Available [facility] (Lab) [address], [place], [address], 05/31/2025 12:26:07 05/30/20 25 05/30/2025 CBC W/DIF F absolute NRBCs 0.0 10'3/ uL no refere nce range establ ished Not Available [facility] (Lab) [address], [place], [address], 05/31/2025 12:26:07 05/30/20 25 05/30/2025 CBC W/DIF F neutrophils 79.4 % 34.0-7 3.0 high Not Available [facility] (Lab) [address], [place], [address], 05/31/2025 12:26:07 05/30/20 25 05/30/2025 CBC W/DIF F lymphocytes 10.8 % 15.0-5 0.0 low Not Available [facility] (Lab) [address], [place], [address], 05/31/2025 12:26:07 05/30/20 25 05/30/2025 CBC W/DIF F monocytes 7.7 % 1.0-15 .0 Not Available [facility] (Lab) [address], [place], [address], 05/31/2025 12:26:07 05/30/20 25 05/30/2025 CBC W/DIF F eosinophils 0.8 % 0.0-8. 0 Not Available [facility] (Lab) [address] [place], [address], 05/31/2025 12:26:07 05/30/20 25 05/30/2025 CBC W/DIF F basophils 0.4 % 0.0-2. 0 Not Available [facility] (Lab) [address] [place], [address], 05/31/2025 12:26:07 05/30/20 25 05/30/2025 CBC W/DIF [...] separ ately if prese nt. Not Available [facility] ([facility] [address] [place], [address], 05/31/2025 12:26:07 05/30/20 25 05/30/2025 CBC W/DIF F absolute neutrophils 9.5 10'3/ uL 1.5-8. 0 high Not Available [facility] (Lab) [address], [place], [address], 05/31/2025 12:26:07 05/30/20 25 05/30/2025 CBC W/DIF F absolute lymphocytes 1.3 10'3/ uL 1.0-4. 0 Not Available [facility] (Lab) [address] [facility], [place], [address], 05/31/2025 12:26:07 05/30/20 25 05/30/2025 CBC W/DIF F absolute monocytes 0.9 10'3/ uL 0.2-1. 0 Not Available [facility] (Lab) [address] [facility], [place], [address], 05/31/2025 12:26:07 05/30/20 25 05/30/2025 CBC W/DIF F absolute eosinophils 0.1 10'3/ uL 0.0-0. 6 Not Available [facility] (Lab) [address] [facility], [place], [address], 05/31/2025 12:26:07 05/30/20 25 05/30/2025 CBC W/DIF F absolute basophils 0.1 10'3/ uL 0.0-0. 3 Not Available [facility] (Lab) [address] [facility], [place], [address], 05/31/2025 12:26:07 05/30/20 25 05/30/2025 CBC W/DIF [...] calzada book. nm.or g/gen derx Not Available [facility] (Lab) [address] [facility], [place], [address], 05/31/2025 12:26:07 05/30/20 25 05/30/2025 HIV 1/2 ANTIG EN/AN TIBOD Y, REFLE X CONFI RMATI ON HIV antigen/anti body Nonrea ctive nonrea ctive HIV-1 antig en and HIV-1 /HIV- 2 antib odies were not detec alfredo. No labor atory evide nce of HIV infec tion. Not Available [facility] (Lab) [address] [facility], [place], [address], 05/31/2025 12:26:07 05/30/20 25 05/30/2025 GTT - GESTA REGAN L SCREE N, ACOG OB glucose, 1 hour screen 82 mg/dL 70-135 Not Available [facility] (Lab) [address] [place], [address], 05/31/2025 12:26:08 05/30/20 25 05/30/2025 RPR SCREE N, REFLE X TITER /CONF IRMAT ION RPR qualitative Nonrea ctive nonrea ctive Not Available [facility] (Lab) [address] [place], [address], 05/31/2025 12:26:08 02/11/20 25 02/10/2025 US, obste tric, nucha l trans lucen cy No observ ation [facility] [address], [place], [address], 02/10/2025 18:38:42 02/11/20 25 02/10/2025 US, obste tric, follo w-up No observ ation record ed. [email or web address] [address], [place], [address], 02/13/2025 09:20:03 04/03/20 25 04/03/2025 US, obste tric, 2nd or 3rd trime ster No observ ation record ed. [email or web address] [place] [address], [place], [address], 04/03/2025 18:43:20 04/03/20 25 04/03/2025 US, obste tric, 2nd or 3rd trime ster No observ ation record ed. [email or web address] [address], [place], [place], [address], 04/05/2025 17:47:52 04/21/20 25 04/21/2025 non-s tress test No observ ation record ed. [address] [facility], [place], [address], 04/24/2025 12:03:28 05/02/20 25 05/02/2025 US, obste tric, follo w-up No observ [facility]ion record ed. [email or web address] [address], [place], [address], 05/02/2025 12:58:26 05/02/20 25 05/02/2025 US, obste tric, follo w-up No observ ation record ed. ROBETR [facility] [address], [place], [address], 05/03/2025 18:13:01 05/29/20 25 05/29/2025 non-s tress test No observ ation record ed. [address], [place], [address], 05/31/2025 15:39:22 06/20/20 25 06/20/2025 imagi ng/di agnos tic resul t No observ ation record ed. [facility] [address] [place] [address], [address], 06/20/2025 13:33:45 06/20/2006/20/2025 US, obste tric, follo w-up No observ ation record ed. [email or web address] [facility] [address] [place] [address], [id number], 06/27/2025 17:32:46 07/03/2007/03/2025 non-s tress test No observ ation record ed. [address], [address], 07/19/2025 15:34:42 07/03/20 25 07/03/2025 imagi ng/di agnos tic resul t No observ ation record ed. [address], [address], 07/03/2025 11:55:37 07/26/20 25 07/26/2025 imagi ng/di agnos tic resul t No observ ation record ed. [address], [address], 07/26/2025 18:39:01 07/26/20 25 07/26/2025 imagi ng/di agnos tic resul t No observ ation record ed. [facility] [address], [address], 07/26/2025 18:39:01 07/26/20 25 07/26/2025 imagi ng/di agnos tic resul t No observ ation record ed. [facility] [address], [address], 07/26/2025 18:39:01 08/14/20 25 08/14/2025 imagi ng/di agnos tic resul t No observ ation record ed. [facility] [address] [place] [address], [id number], 08/14/2025 09:43:44 08/14/20 25 08/14/2025 ledy torres/marcy villela tic resul t No observ ation record ed. ROBERT [facility] [address] [place], [address], 08/14/2025 14:53:30 Result Notes None recorded. Problems Name Problem SNOMED Code Status Onset Date Resolution Date Notes Provider Name and Address Organization Details Recorded Time Anxiety 44925162 Active 2024 Kristen Ruffin [facility] 11:01:06 50220389 Active 2024 Aleah Bedolla [facility] 11:57:32 Platelet count below reference range 036581007 Active 2024 Referral faxed to [facility] 06/01 scheduled 06/20 0900 Level II us and consult Zoey Tarango [facility] 11:50:53 Problem Notes None recorded. Procedures Surgical History Date Name Laterality Status Provider Name and Address Organization Details Recorded Time 5 Date of Last Pap Smear completed Kristen Galvantz [facility] 01/13/2025 11:01:13 7 operative procedure on wrist completed Aleah Bedolla [facility] 02/10/2025 11:57:07 Imaging Results None [...] Address Organization Details Last Updated DateTime 05/30/2025 24873.37216 g 118/78 mm[Hg] Isabel Romero [facility] 05/30/2025 09:51:58 Social History Question Answer Notes LastModified by Organizat ion Details LastModified Time Tobacco Smoking Status Never Smoker Kristen Ruffin [facility], [facility] 01/13/2025 11:05:22 If You Are , What Was Your Level Of Alcohol Consumption Prior To ? Occasional [email or web address] Information not available 01/13/2025 Are You Blind Or Do You Have Difficulty Seeing? No [email or web address] Information n ot available 01/13/2025 What Is Your Level Of Caffeine Consumption? Occasional [email or web address] Information not available 01/13/2025 In The 14 Days Before Symptom Onset, Have You Had Close Contact With A Laboratory-confirm ed COVID-19 While That Case Was Ill? No [email or web address] Information n ot available 01/13/2025 In The 14 Days Before Symptom Onset, Have You Had Close Contact With A Person Who Is Under Investigation For COVID-19 While That Person Was Ill? No [email or web address] Information not available 01/13/2025 Have You Been To An Area Known To Be High Risk For COVID-19? No [email or web address] Information not available 01/13/2025 Are You Deaf Or Do You Have Serious Difficulty Hearing? No Information not available 01/13/2025 Do You Have Smoke And Carbon Monoxide Detectors In Your Home? Yes [email or web address] Information not available 01/13/2025 Do You Use Sunscreen Routinely? Yes [email or web address] Information not available 01/13/2025 Has Tobacco Cessation Counseling Been Provided? No [email or web address] Information not available 01/13/2025 Have You Used IV Drugs? No [email or web address] Information not available 01/13/2025 Do You Have Difficulty Walking Or Climbing Stairs? No [email or web address] Information not available 01/13/2025 Sex: Unknown Functional Status Question Answer Note LastModified by Organizat ion Details LastModified Time Do you use any illicit or recreational drugs? No [email or web address] Information not available 01/13/2025 Do you or have you ever used any other forms of tobacco or nicotine? Yes Information not available 01/13/2025 What is your level of alcohol consumption? None [email or web address] Information not available 01/13/2025 Are you able to walk independently without assistance or assistive devices? YESWOREST [email or web address] Information not available 01/13/2025 Are you able to care for yourself independently? Yes [email or web address] Information not available 01/13/2025 Do you have difficulty dressing, bathing, grooming, or toileting? No [email or web address] Information not available 01/13/2025 Do you or have you ever used e-cigarettes or vape? Former user of electronic cigarettes [email or web address] Information not available 01/13/2025 Mental Status None recorded. Family History Relationship Description Onset Age of this Age Resolved Age Notes LastModified by Organization Details LastModified Time Unspecified Relation Family history unknown Not available 2024 13:48:03 Paternal Grandfather Malignant neoplasm of prostate [email or web address] Not available 07/31 15:39:21 Maternal Grandfather Malignant neoplasm of lung [email or web address] Not available 01/13 11:03:40 Maternal Grandmother Malignant neoplasm of pancreas [email or web address] Not available 07/31 15:39:21 Maternal Aunt Malignant neoplasm of breast [email or web address] Not available 2024 13:48:03 Father Leukemia [email or web address] Not availa ble 08/10/2025 15:39:21 Mother Diabetes mellitus [email or web address] Not available 01/13 11:04:57 Medical History Condition [...] ICD10 Code Diagnosis IMO Codes Diagnosis Note [id number] JOLIE TOMLINSON MD [place] [address] [address] 05/02/2025 09:18:09 05/02/2025 10:11:24 Follow-up encounter 705818166 Z36.2 Z3A.24 [id number] JOLIE TOMLINSON MD [place] [address] [address] 05/02/2025 09:25:23 05/02/2025 10:55:47 Nausea and vomiting 53728134 R11.2 Second tri mester 98246883 Z34.02 [id number] JOLIE TOMLINSON MD [place] [address] [address] 05/30/2025 09:40:10 05/30/2025 10:26:07 Thrombocytopenic disorder 733284691 D69.6 18850 - plt 125>131- repeat today Gestation period, 28 weeks 34447823 Z3A.28 [id number] Health Concerns Section Related Observation LastModified by Organization Detai ls LastModified Time None Recorded Concern Status LastModified by Organization Details LastModified Time None Recorded Payers Encounter Date Sequence Insurance Name Policy Number Policy Marie Covered Member ID Marie Member ID Guarantor Name 05/30/2025 2 [place] [employer] Gabby Jose [id number] Kya Angulo 05/30/2025 1 [place] [id number] Kya Angulo [id number] Kya Angulo Notes Date Note Type Note Provider Name and Address Organization Details Recorded Time 05/30/2025 text/html Generic HPI TemplateReported by Patient JOLIE TOMLINSON MD [address], [place], [address], [facility] 05/30/2025 10:25:43 OBGyn Episode Ob Episode Information Episode Created Date Number of Fetuses Patient Bloodtype Patient rh Status Prepregnancy Weight lbs Domestic Partner Domestic Partner Phone Father Name Supervisor [employer] Status 02/11/20 25 1 O Positive 150 Jovany Juwan OPEN Fetus Data First Name Last Name Admitted to NICU Weight (g) Sex Living Outcome Pediatric Complications Fetus ID Race Codes Race Delivery Type [id number] Problems Problem Notes RSV vaccine received 07/04/25 . Problem Name Start Date End Date Resolution Snomed Code Not e Platelet count below reference range 06/01/2025 [id number] Referral fax ed to [facility] 06/01 scheduled 06/20 0900 Level II us [...] Date Ultra Sound Latest Days Gestation 0 [email or web address] 02/10/2025 08/21/20 25 0 Pre- Flowsheet Flowsheet Date 02/10/2025 Kirkland Score Blood Edema Fundus Height Fundus Units Glucose Ketones Leukocytes Nitrite Labor Signs Protein Cervic Dilation Cervic Effacement Cervic Station Type Weight in lbs Pre/Post Dialysis Refused Weight 153.526294402222 BP Diastolic BP Location Tested BP Systolic BP Type 77 L arm 122 sitting Fetus Heart Rate Present A Present Fetus Movement Comments Patient presents to [facility]. otherwise uncomplicated. No bleeding or cramping. [...] Weight in lbs Pre/Post Dialysis Refused Weight 156.495882199474 BP Diastolic BP Location Tested BP Systolic [...] Weight in lbs Pre/Post Dialysis Refused Weight 160.555433167101 BP Diastolic BP Location Tested BP Systolic [...] Weight in lbs Pre/Post Dialysis Refused Weight 165.900989870231 BP Diastolic BP Location Tested BP Systolic [...] Type Weight in lbs Pre/Post Dialysis Refused 176.604995520856 BP Diastolic BP Location Tested BP Systolic BP Type 78 L arm 118 sitting Fetus Heart Rate Present A 150 Fetus Movement A Yes Comments Had an episode of DFM yester day, went to [place] and had negative workup. No cramping or bleeding. GCT and labs today, will draw CBC as well. Discussed Tdap, RSV, and flu vaccines. RTC 2 weeks. Flowsheet Date 06/13/2025 Kirkland Score Blood Edema Fundus Height Fundus Units Glucose Ketones Leukocytes Nitrite Labor Signs Protein Cervic Dilation Cervic Effacement Cervic Station Type Weight in lbs Pre/Post Dialysis Refused 181.845143307390 BP Diastolic BP Location Tested BP Systolic [...] Weight in lbs Pre/Post Dialysis Refused Weight 178.825101451263 BP Diastolic BP Location Tested BP Systolic BP Type 78 L arm 112 sitting Fetus Heart Rate Present A 140 Fetus Movement A Yes Comments Good movement. No cram ping or bleeding. Saw MFM, recommend platelet counts every visit. Rn Spine appointment next week to determine if autoimmune vs gestational. EFW 92%, AC 93%; discussed 39 week induction, plan for 12/15 PM. Preadmission scheduled. RSV vaccine discussed. RTC 2 weeks. Flowsheet Date 07/12/2025 Kirkland Score Blood Edema Fundus Height Fundus Units Glucose Ketones Leukocytes Nitrite Labor Signs Protein Cervic Dilation Cervic Effacement Cervic Station Type Weight in lbs Pre/Post Dialysis Refused Weight 185.803621663189 BP Diastolic BP Location Tested BP Systolic [...] Weight in lbs Pre/Post Dialysis Refused Weight 186.756282060653 BP Diastolic BP Location Tested BP Systolic BP Type 81 L arm 139 sitting Fetus Heart Rate Present A 155 Fetus Movement A Yes Comments Good movement. Having increased pressure, BH contractions and back pain. Just received Fe infusions, and continuing B12 infusions. Repeat platelet count today. GBS collected. RTC 1 week. Flowsheet Date 08/04/2025 Kirkland Score Blood Edema Fundus Height Fundus Units Glucose Ketones Leukocytes Nitrite Labor Signs Protein Cervic Dilation Cervic Effacement Cervic Station Type Weight in lbs Pre/Post Dialysis Refused Weight 187.302242617573 BP Diastolic BP Location Tested BP Systolic BP Type 77 L arm 128 sitting Fetus Heart Rate Present A 150 Fetus Movement A Yes Comments Doing well, good movem ent. GBS negative. Some cramping and BH contractions. No bleeding. Plt 115 last visit, repeat today. Will also order labs requested by heme/onc. RTC 1 week. Flowsheet Date 08/10/2025 Kirkland Score Blood Edema Fundus Height Fundus Units Glucose Ketones Leukocytes Nitrite Labor Signs Protein Cervic Dilation Cervic Effacement Cervic Station Type Weight in lbs Pre/Post Dialysis Refused Weight 189.530085249811 BP Diastolic BP Location Tested BP Systolic BP Type 75 L arm 116 sitting Fetus Heart Rate Present A 155 Fetus Movement A Yes Comments Baby active. No cramping or bleeding. EIL Thursday. Labs normal last week. Plt stable. Labor precautions reviewed. Flowsheet Date 08/14/2025 Kirkland Score Blood Edema Fundus Height Fundus Units Glucose Ketones Leukocytes Nitrite Labor Signs Protein Cervic Dilation Cervic Effacement Cervic Station Type Weight in lbs Pre/Post Dialysis Refused BP Diastolic BP Location Tested BP Systolic BP Type Fetus Heart Rate Present Fetus Movement Comments Menstrual History Last Menstrual Date Menses Monthly [...]
--- OUTSIDE RECORDS SUMMARY | 2025-08-14 17:57 | XMS_ITS | Continuity of Care Document ---
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 Phone SHERYL DICKSON Primary [...] Abnormal Flag Note LastModifiedBy Organization Detail LastModifiedTime 02/17/20 25 02/16/2025 [UNIT Y] ANEUP LOIDY NIPT fraction 15.3% normal Not Available [facility] [address], [place], [address], 02/16/2025 19:59:32 02/17/20 25 02/16/2025 [UNIT Y] ANEUP LOIDY NIPT 22Q11.2 microdeletio n LOW RISK <1 in 10,000 normal Not Available [facility] [address], [place], [address], 02/16/2025 19:59:32 02/17/20 25 02/16/2025 [UNIT Y] ANEUP LOIDY NIPT sex chromosome aneuploidy NOT DETECT ED normal Not Available [facility] [address] [place], [address], 02/16/2025 19:59:32 02/17/20 25 02/16/2025 [UNIT Y] ANEUP LOIDY NIPT monosomy X LOW RISK <1 in 10,000 normal Not Available [facility] [address], [place], [address], 02/16/2025 19:59:32 02/17/20 25 02/16/2025 [UNIT Y] ANEUP LOIDY NIPT trisomy 13 LOW RISK <1 in 10,000 normal Not Available [facility] [address], [place], [address], 02/16/2025 19:59:32 02/17/20 25 02/16/2025 [UNIT Y] ANEUP LOIDY NIPT trisomy 18 LOW RISK <1 in 10,000 normal Not Available [facility] [address], [place], [address], 02/16/2025 19:59:32 02/17/20 25 02/16/2025 [UNIT Y] ANEUP LOIDY NIPT trisomy 21 LOW RISK <1 in 10,000 normal Not Available [facility] [address], [place], [address], 02/16/2025 19:59:32 02/17/20 25 02/16/2025 [UNIT Y] ANEUP LOIDY NIPT sex MALE normal Not Available [facility] [address], [place], [address], 02/16/2025 19:59:32 02/17/20 25 02/16/2025 [UNIT Y] ANEUP LOIDY NIPT gestation SINGLE TON normal Not Available [facility] [address], [place], [address], 02/16/2025 19:59:32 02/17/20 25 02/16/2025 [UNIT Y] ANEUP LOIDY NIPT for detailed report, see pdf See PDF normal Not Available [facility] [address], [place], [address], 02/16/2025 19:59:32 02/22/20 25 02/21/2025 [UNIT Y] FLETCHER Rose sickle cell disease/beta -thalassemia /hemoglobino pathies carrier screen NEGATI VE normal Not Available [facility] [address], [place], [address], 02/21/2025 14:09:41 02/22/20 25 02/21/2025 [UNIT Y] FLETCHER Rose alpha-thalas semia carrier screen NEGATI VE normal Not Available [facility] [address], [place], [address], 02/21/2025 14:09:41 02/22/20 25 02/21/2025 [UNIT Y] FLETCHER Rose cystic fibrosis carrier screen NEGATI VE normal Not Available [facility] [address], [place], [address], 02/21/2025 14:09:41 02/22/20 25 02/21/2025 [UNIT Y] FLETCHER Rose spinal muscular atrophy carrier screen NEGATI VE 2 SMN1 copies , SNP not presen t normal Not Available [facility] [address], [place], [address], 02/21/2025 14:09:41 02/22/20 25 02/21/2025 [UNIT Y] FLETCHER Rose for detailed report, see pdf See PDF normal Not Available [facility] [address], [place], [address], 02/21/2025 14:09:41 02/11/20 25 02/10/2025 CT/GC AND TRICH OMONA S VAGIN KARLO (RRNA ), URINE chlamydia trachomatis, PCR Negati ve negati ve Not Available [facility] (Lab) [address], [place], [address], 02/11/2025 12:05:33 02/11/20 25 02/10/2025 CT/GC AND TRICH OMONA S VAGIN KARLO (RRNA ), URINE neisseria gonorrhoeae, PCR Negati ve negati ve Not Available [facility] (Lab) [address] [facility], [place], [address], 02/11/2025 12:05:33 02/11/20 25 02/10/2025 CT/GC AND TRICH OMONA S VAGIN KARLO (RRNA ), URINE trichomonas vaginalis ribosomal RNA (rrna) Negati ve negati ve Not Available [facility] (Lab) [address] [facility], [place], [address], 02/11/2025 12:05:33 02/11/20 25 02/10/2025 CBC W/DIF F WBC 8.7 10'3/ uL 3.5-10 .5 Not Available [facility] (Lab) [address] [facility], [place], [address], 02/11/2025 13:44:37 02/11/20 25 02/10/2025 CBC W/DIF F RBC 4.55 10'6/ uL (based on docume nted legal sex) 3.80-5 .20 Not Available [facility] (Lab) [address] [facility], [place], [address], 02/11/2025 13:44:37 02/11/20 25 02/10/2025 CBC W/DIF F HGB 13.7 g/dL (based on docume nted legal sex) 11.6-1 5.4 Not Available [facility] (Lab) [address] [facility], [place], [address], 02/11/2025 13:44:37 02/11/20 25 02/10/2025 CBC W/DIF F HCT 40.8 % (based on docume nted legal sex) 34.0-4 5.0 Not Available [facility] (Lab) [address] [facility], [place], [address], 02/11/2025 13:44:37 02/11/20 25 02/10/2025 CBC W/DIF F MCV 89.7 fL 80.0-9 9.0 Not Available [facility] (Lab) [address] [facility], [place], [address], 02/11/2025 13:44:37 02/11/20 25 02/10/2025 CBC W/DIF F MCH 30.1 pg 27.0-3 4.0 Not Available [facility] (Lab) [address] [facility], [place], [address], 02/11/2025 13:44:37 02/11/20 25 02/10/2025 CBC W/DIF F MCHC 33.6 g/dL 32.0-3 5.5 Not Available [facility] (Lab) [address] [facility], [place], [address], 02/11/2025 13:44:37 02/11/20 25 02/10/2025 CBC W/DIF F RDW 12.8 % 11.0-1 5.0 Not Available [facility] (Lab) [address] [facility], [place], [address], 02/11/2025 13:44:37 02/11/20 25 02/10/2025 CBC W/DIF F plt 125 10'3/ uL 150-40 0 low Not Available [facility] (Lab) [address] [facility], [place], [address], 02/11/2025 13:44:37 02/11/20 25 02/10/2025 CBC W/DIF F MPV 13.5 fL 8.8-12 .1 high Not Available [facility] (Lab) [address] [facility], [place], [address], 02/11/2025 13:44:37 02/11/20 25 02/10/2025 CBC W/DIF F NRBC's 0.0 % 0.0 Not Available [facility] (Lab) [address] [facility], [place], [address], 02/11/2025 13:44:37 02/11/20 25 02/10/2025 CBC W/DIF F absolute NRBCs 0.0 10'3/ uL no refere nce range establ ished Not Available [facility] (Lab) [address] [facility], [place], [address], 02/11/2025 13:44:37 02/11/20 25 02/10/2025 CBC W/DIF F neutrophils 76.5 % 34.0-7 3.0 high Not Available [facility] (Lab) [address] [facility], [place], [address], 02/11/2025 13:44:37 02/11/20 25 02/10/2025 CBC W/DIF F lymphocytes 14.4 % 15.0-5 0.0 low Not Available [facility] (Lab) [address] [facility], [place], [address], 02/11/2025 13:44:37 02/11/20 25 02/10/2025 CBC W/DIF F monocytes 8.3 % 1.0-15 .0 Not Available [facility] (Lab) [address] [facility], [place], [address], 02/11/2025 13:44:37 02/11/20 25 02/10/2025 CBC W/DIF F eosinophils 0.3 % 0.0-8. 0 Not Available [facility] (Lab) [address] [facility], [place], [address], 02/11/2025 13:44:37 02/11/20 25 02/10/2025 CBC W/DIF F basophils 0.3 % 0.0-2. 0 Not Available [facility] (Lab) [address] [place], [address], 02/11/2025 13:44:37 02/11/20 25 02/10/2025 CBC W/DIF [...] separ ately if prese nt. Not Available [facility] (Lab) [address] [facility], [place], [address], 02/11/2025 13:44:37 02/11/20 25 02/10/2025 CBC W/DIF F absolute neutrophils 6.6 10'3/ uL 1.5-8. 0 Not Available [facility] (Lab) [address] [facility], [place], [address], 02/11/2025 13:44:37 02/11/20 25 02/10/2025 CBC W/DIF F absolute lymphocytes 1.3 10'3/ uL 1.0-4. 0 Not Available [facility] (Lab) [address] [facility], [place], [address], 02/11/2025 13:44:37 02/11/20 25 02/10/2025 CBC W/DIF F absolute monocytes 0.7 10'3/ uL 0.2-1. 0 Not Available [facility] (Lab) [address] [facility], [place], [address], 02/11/2025 13:44:37 02/11/20 25 02/10/2025 CBC W/DIF F absolute eosinophils 0.0 10'3/ uL 0.0-0. 6 Not Available [facility] (Lab) [address] [facility], [place], [address], 02/11/2025 13:44:37 02/11/20 25 02/10/2025 CBC W/DIF F absolute basophils 0.0 10'3/ uL 0.0-0. 3 Not Available [facility] (Lab) [address] [place], [address], 02/11/2025 13:44:37 02/11/2002/10/2025 CBC W/DIF F absolute immature granulocytes 0.0 [...] calzada book. nm.or g/gen derx Not Available [facility] (Lab) [address], [place], [address], 02/11/2025 13:44:37 02/11/2002/10/2025 HIV 1/2 ANTIG EN/AN TIBOD Y, REFLE X CONFI RMATI ON HIV antigen/anti body Nonrea ctive nonrea ctive HIV-1 antig en and HIV-1 /HIV- 2 antib odies were not detec alfredo. No labor atory evide nce of HIV infec tion. Not Available [facility] (Lab) [address], [place], [address], 02/11/2025 13:44:38 02/11/20 25 02/10/2025 HEPAT ITIS B SURFA CE ANTIG EN hepatitis B surface antigen Non-re active non-re active This assay was perfo rmed using [employer] ratio n reage nts and test kits. Value s obtai evelyn with other assay metho ds or kits canno t be used inter collins eably . Not Available [facility] (Lab) [address], [place], [address], 02/11/2025 13:44:38 02/11/20 25 02/10/2025 HEPAT ITIS C ANTIB TIM SCREE N, REFLE X TO CONFI RMATI ON hepatitis C antibody Non-re active non-re active Antib odies to HCV Not Detec alfredo, does not exclu de the possi bilit y of expos ure to HCV. Not Available [facility] (Lab) [address], [place], [address], 02/11/2025 13:44:39 02/11/20 25 02/10/2025 RUBEL LA IGG ANTIB TIM, QUANT rubella antibodies, IgG Reacti ve reacti ve Not Available [facility] (Lab) [address], [place], [address], 02/11/2025 13:44:39 02/11/20 25 02/10/2025 RUBEL LA IGG ANTIB TIM, QUANT rubella antibodies, IgG quant 47.1 IU/mL >=10 Non-r eacti ve (Non- Immun e) <10 IU/mL React kvng (Immu ne) > or = 10 IU/mL Not Available [facility] (Lab) [address], [place], [address], 02/11/2025 13:44:39 02/11/20 25 02/10/2025 TYPE/ RH/SC REEN ABO/Rh type O POS Not Available [facility] (Lab) [address], [place], [address], 02/11/2025 13:44:40 02/11/20 25 02/10/2025 TYPE/ RH/SC REEN antibody screen NEG Not Available [facility] (Lab) [address], [place], [address], 02/11/2025 13:44:40 02/11/2002/10/2025 TYPE/ RH/SC REEN exp date 2024 23:59 Not Available [facility] (Lab) [address], [place], [address], 02/11/2025 13:44:40 02/11/20 25 02/10/2025 HEMOG LOBIN [...] >8.0% Actio n sugge sted Not Available [facility] (Lab) [address] [facility], [place], [address], 02/11/2025 13:44:40 02/11/20 25 02/10/2025 RPR SCREE N, REFLE X TITER /CONF IRMAT ION RPR qualitative Nonrea ctive nonrea ctive Not Available [facility] (Lab) [address], [place], [address], 02/11/2025 13:44:41 02/11/20 25 02/10/2025 drug scree n, urine Amphetamines : negati ve Not Available [facility] [address], [place], [address], 02/10/2025 12:55:20 02/11/20 25 02/10/2025 drug scree n, urine Cannabinoids : negati ve Not Available [facility] [address], [place], [address], 02/10/2025 12:55:20 02/11/20 25 02/10/2025 drug scree n, urine Cocaine: negati ve Not Available [facility] [address], [place], [address], 02/10/2025 12:55:20 02/11/20 25 02/10/2025 drug scree n, urine Opiates: negati ve Not Available [facility] [address], [place], [address], 02/10/2025 12:55:20 02/11/20 25 02/10/2025 drug scree n, urine Barbiturates : negati ve Not Available [facility] [address], [place], [address], 02/10/2025 12:55:20 02/11/20 25 02/10/2025 drug scree n, urine Benzodiazepi john: negati ve Not Available [facility] [address], [place], [address], 02/10/2025 12:55:20 03/10/20 25 03/10/2025 CULTU RE: URINE result report SEE RESULT S BELOW Test: Cultu re: Urine Speci men Sourc e: Urine Voide d Speci men Type: Urine Speci men Date: 2024 0938 Resul t Date: 20242 Resul t Statu s: Final resul t Abnor mal: No Resul ting Lab: [facility] [address] [facility] [address] Tel: CULTU RE ----- ----- ----- --- No growt h in 1 day (dete ction level of 10,00 0 colon ies / ml.) Not Available [facility] (Lab) [address], [place], [address], 03/11/2025 23:15:50 04/03/20 25 04/03/2025 CBC W/DIF F WBC 12.9 10'3/ uL 3.5-10 .5 high Not Available [facility] (Lab) [address] , [place], [address], 04/04/2025 04:39:51 04/03/2004/03/2025 CBC W/DIF F RBC 4.33 10'6/ uL (based on docume nted legal sex) 3.80-5 .20 Not Available [facility] (Lab) [address] , [place], [address], 04/04/2025 04:39:51 04/03/20 25 04/03/2025 CBC W/DIF F HGB 13.2 g/dL (based on docume nted legal sex) 11.6-1 5.4 Not Available [facility] (Lab) [address] [facility], [place], [address], 04/04/2025 04:39:51 04/03/2004/03/2025 CBC W/DIF F HCT 40.2 % (based on docume nted legal sex) 34.0-4 5.0 Not Available [facility] (Lab) [address] [facility], [place], [address], 04/04/2025 04:39:51 04/03/2004/03/2025 CBC W/DIF F MCV 92.8 fL 80.0-9 9.0 Not Available [facility] (Lab) [address] [facility], [place], [address], 04/04/2025 04:39:51 04/03/20 25 04/03/2025 CBC W/DIF F MCH 30.5 pg 27.0-3 4.0 Not Available [facility] (Lab) [address] [facility], [place], [address], 04/04/2025 04:39:51 04/03/2004/03/2025 CBC W/DIF F MCHC 32.8 g/dL 32.0-3 5.5 Not Available [facility] (Lab) [address] [facility], [place], [address], 04/04/2025 04:39:51 04/03/2004/03/2025 CBC W/DIF F RDW 13.0 % 11.0-1 5.0 Not Available [facility] (Lab) [address] [facility], [place], [address], 04/04/2025 04:39:51 04/03/20 25 04/03/2025 CBC W/DIF F plt 131 10'3/ uL 150-40 0 low Not Available [facility] (Lab) [address] [facility], [place], [address], 04/04/2025 04:39:51 04/03/2004/03/2025 CBC W/DIF F MPV 13.9 fL 8.8-12 .1 high Not Available [facility] (Lab) [address] [facility], [place], [address], 04/04/2025 04:39:51 04/03/2004/03/2025 CBC W/DIF F NRBC's 0.0 % 0.0 Not Available [facility] (Lab) [address] [facility], [place], [address], 04/04/2025 04:39:51 04/03/2004/03/2025 CBC W/DIF F absolute NRBCs 0.0 10'3/ uL no refere nce range establ ished Not Available [facility] (Lab) [address] [facility], [place], [address], 04/04/2025 04:39:51 04/03/2004/03/2025 CBC W/DIF F neutrophils 76.6 % 34.0-7 3.0 high Not Available [facility] (Lab) [address] [facility], [place], [address], 04/04/2025 04:39:51 04/03/2004/03/2025 CBC W/DIF F lymphocytes 14.2 % 15.0-5 0.0 low Not Available [facility] (Lab) [address] [facility], [place], [address], 04/04/2025 04:39:51 04/03/2004/03/2025 CBC W/DIF F monocytes 7.6 % 1.0-15 .0 Not Available [facility] (Lab) [address] [facility], [place], [address], 04/04/2025 04:39:51 04/03/2004/03/2025 CBC W/DIF F eosinophils 0.7 % 0.0-8. 0 Not Available [facility] (Lab) [address] [facility], [place], [address], 04/04/2025 04:39:51 04/03/2004/03/2025 CBC W/DIF F basophils 0.4 % 0.0-2. 0 Not Available [facility] (Lab) [address] [facility], [place], [address], 04/04/2025 04:39:51 04/03/20 25 04/03/2025 CBC W/DIF [...] separ ately if prese nt. Not Available [facility] (Lab) [address] [facility], [place], [address], 04/04/2025 04:39:51 04/03/20 25 04/03/2025 CBC W/DIF F absolute neutrophils 9.9 10'3/ uL 1.5-8. 0 high Not Available [facility] (Lab) [address] [facility], [place], [address], 04/04/2025 04:39:51 04/03/2004/03/2025 CBC W/DIF F absolute lymphocytes 1.8 10'3/ uL 1.0-4. 0 Not Available [facility] (Lab) [address] [facility], [place], [address], 04/04/2025 04:39:51 04/03/20 25 04/03/2025 CBC W/DIF F absolute monocytes 1.0 10'3/ uL 0.2-1. 0 Not Available [facility] (Lab) [address] [facility], [place], [address], 04/04/2025 04:39:51 04/03/2004/03/2025 CBC W/DIF F absolute eosinophils 0.1 10'3/ uL 0.0-0. 6 Not Available [facility] (Lab) [address] [facility], [place], [address], 04/04/2025 04:39:51 04/03/2004/03/2025 CBC W/DIF F absolute basophils 0.1 10'3/ uL 0.0-0. 3 Not Available [facility] (Lab) [address] [facility], [place], [address], 04/04/2025 04:39:51 04/03/2004/03/2025 CBC W/DIF F absolute [...] calzada book. nm.or g/gen derx Not Available [facility] (Lab) [address] [facility], [place], [address], 04/04/2025 04:39:51 05/02/2005/02/2025 CULTU RE: URINE result report SEE RESULT S BELOW Test: Cultu re: Urine Speci men Sourc e: Urine - Clean Catch Speci men Type: Urine Speci men Date: 1502 Resul t Date: 0404 Resul t Statu s: Final resul t Abnor mal: No Resul ting Lab: [facility] [address] [facility] [address] Tel: CULTU RE ----- ----- ----- --- No growt h in 1 day (dete ction level of 10,00 0 colon ies / ml.) Not Available [facility] (Lab) [address], [place], [address], 05/04/2025 05:09:17 05/30/2005/30/2025 CBC W/DIF F WBC 11.9 10'3/ uL 3.5-10 .5 high Not Available [facility] (Lab) [address], [place], [address], 05/31/2025 12:26:07 05/30/20 25 05/30/2025 CBC W/DIF F RBC 3.98 10'6/ uL (based on docume nted legal sex) 3.80-5 .20 Not Available [facility] (Lab) [address], [place], [address], 05/31/2025 12:26:07 05/30/20 25 05/30/2025 CBC W/DIF F HGB 12.4 g/dL (based on docume nted legal sex) 11.6-1 5.4 Not Available [facility] (Lab) [address], [place], [address], 05/31/2025 12:26:07 05/30/20 25 05/30/2025 CBC W/DIF F HCT 36.8 % (based on docume nted legal sex) 34.0-4 5.0 Not Available [facility] (Lab) [address], [place], [address], 05/31/2025 12:26:07 05/30/2005/30/2025 CBC W/DIF F MCV 92.5 fL 80.0-9 9.0 Not Available [facility] (Lab) [address] [place], [address], 05/31/2025 12:26:07 05/30/20 25 05/30/2025 CBC W/DIF F MCH 31.2 pg 27.0-3 4.0 Not Available [facility] (Lab) [address] [place], [address], 05/31/2025 12:26:07 05/30/20 25 05/30/2025 CBC W/DIF F MCHC 33.7 g/dL 32.0-3 5.5 Not Available [facility] (Lab) [address] [facility], [place], [address], 05/31/2025 12:26:07 05/30/20 25 05/30/2025 CBC W/DIF F RDW 13.4 % 11.0-1 5.0 Not Available [facility] (Lab) [address] [facility], [place], [address], 05/31/2025 12:26:07 05/30/20 25 05/30/2025 CBC W/DIF F plt 113 10'3/ uL 150-40 0 low Not Available [facility] (Lab) [address] [facility], [place], [address], 05/31/2025 12:26:07 05/30/20 25 05/30/2025 CBC W/DIF F MPV 13.8 fL 8.8-12 .1 high Not Available [facility] (Lab) [address] [facility], [place], [address], 05/31/2025 12:26:07 05/30/20 25 05/30/2025 CBC W/DIF F NRBC's 0.0 % 0.0 Not Available [facility] (Lab) [address] [facility], [place], [address], 05/31/2025 12:26:07 05/30/20 25 05/30/2025 CBC W/DIF F absolute NRBCs 0.0 10'3/ uL no refere nce range establ ished Not Available [facility] (Lab) [address] [facility], [place], [address], 05/31/2025 12:26:07 05/30/20 25 05/30/2025 CBC W/DIF F neutrophils 79.4 % 34.0-7 3.0 high Not Available [facility] (Lab) [address] [facility], [place], [address], 05/31/2025 12:26:07 05/30/20 25 05/30/2025 CBC W/DIF F lymphocytes 10.8 % 15.0-5 0.0 low Not Available [facility] (Lab) [address] [facility], [place], [address], 05/31/2025 12:26:07 05/30/20 25 05/30/2025 CBC W/DIF F monocytes 7.7 % 1.0-15 .0 Not Available [facility] (Lab) [address] [facility], [place], [address], 05/31/2025 12:26:07 05/30/20 25 05/30/2025 CBC W/DIF F eosinophils 0.8 % 0.0-8. 0 Not Available [facility] (Lab) [address] [facility], [place], [address], 05/31/2025 12:26:07 05/30/20 25 05/30/2025 CBC W/DIF F basophils 0.4 % 0.0-2. 0 Not Available [facility] (Lab) [address] [facility], [place], [address], 05/31/2025 12:26:07 05/30/20 25 05/30/2025 CBC W/DIF [...] separ ately if prese nt. Not Available [facility] (Lab) [address] [facility], [place], [address], 05/31/2025 12:26:07 05/30/20 25 05/30/2025 CBC W/DIF F absolute neutrophils 9.5 10'3/ uL 1.5-8. 0 high Not Available [facility] (Lab) [address] [facility], [place], [address], 05/31/2025 12:26:07 05/30/20 25 05/30/2025 CBC W/DIF F absolute lymphocytes 1.3 10'3/ uL 1.0-4. 0 Not Available [facility] (Lab) [address] [facility], [place], [address], 05/31/2025 12:26:07 05/30/20 25 05/30/2025 CBC W/DIF F absolute monocytes 0.9 10'3/ uL 0.2-1. 0 Not Available [facility] (Lab) [address] [facility], [place], [address], 05/31/2025 12:26:07 05/30/20 25 05/30/2025 CBC W/DIF F absolute eosinophils 0.1 10'3/ uL 0.0-0. 6 Not Available [facility] (Lab) [address] [facility], [place], [address], 05/31/2025 12:26:07 05/30/20 25 05/30/2025 CBC W/DIF F absolute basophils 0.1 10'3/ uL 0.0-0. 3 Not Available [facility] (Lab) [address] [place], [address], 05/31/2025 12:26:07 05/30/20 25 05/30/2025 CBC W/DIF [...] calzada book. nm.or g/gen derx Not Available [facility] (Lab) [address] [facility], [place], [address], 05/31/2025 12:26:07 05/30/20 25 05/30/2025 HIV 1/2 ANTIG EN/AN TIBOD Y, REFLE X CONFI RMATI ON HIV antigen/anti body Nonrea ctive nonrea ctive HIV-1 antig en and HIV-1 /HIV- 2 antib odies were not detec alfredo. No labor atory evide nce of HIV infec tion. Not Available [facility] (Lab) [address] [facility], [place], [address], 05/31/2025 12:26:07 05/30/20 25 05/30/2025 GTT - GESTA REGAN L ASHOK oRse, ACOG OB glucose, 1 hour screen 82 mg/dL 70-135 Not Available [facility] (Lab) [address] [facility], [place], [address], 05/31/2025 12:26:08 05/30/20 25 05/30/2025 RPR SCREE N, REFLE X TITER /CONF IRMAT ION RPR qualitative Nonrea ctive nonrea ctive Not Available [facility] (Lab) [address], [place], [address], 05/31/2025 12:26:08 06/30/20 25 06/30/2025 CBC W/DIF F WBC 11.6 10'3/ uL 3.5-10 .5 high Not Available [facility] (Lab) [address], [place], [address], 07/01/2025 02:43:32 06/30/20 25 06/30/2025 CBC W/DIF F RBC 3.97 10'6/ uL (based on docume nted legal sex) 3.80-5 .20 Not Available [facility] (Lab) [address], [place], [address], 07/01/2025 02:43:32 06/30/20 25 06/30/2025 CBC W/DIF F HGB 12.4 g/dL (based on docume nted legal sex) 11.6-1 5.4 Not Available [facility] (Lab) [address], [place], [address], 07/01/2025 02:43:32 06/30/20 25 06/30/2025 CBC W/DIF F HCT 35.3 % (based on docume nted legal sex) 34.0-4 5.0 Not Available [facility] (Lab) [address], [place], [address], 07/01/2025 02:43:32 06/30/20 25 06/30/2025 CBC W/DIF F MCV 88.9 fL 80.0-9 9.0 Not Available [facility] (Lab) [address], [place], [address], 07/01/2025 02:43:32 06/30/20 25 06/30/2025 CBC W/DIF F MCH 31.2 pg 27.0-3 4.0 Not Available [facility] (Lab) [address], [place], [address], 07/01/2025 02:43:32 06/30/20 25 06/30/2025 CBC W/DIF F MCHC 35.1 g/dL 32.0-3 5.5 Not Available [facility] (Lab) [address], [place], [address], 07/01/2025 02:43:32 06/30/20 25 06/30/2025 CBC W/DIF F RDW 13.2 % 11.0-1 5.0 Not Available [facility] (Lab) [address], [place], [address], 07/01/2025 02:43:32 06/30/20 25 06/30/2025 CBC W/DIF F plt 106 10'3/ uL 150-40 0 low Not Available [facility] (Lab) [address], [place], [address], 07/01/2025 02:43:32 06/30/20 25 06/30/2025 CBC W/DIF F MPV 13.2 fL 8.8-12 .1 high Not Available [facility] (Lab) [address] [facility], [place], [address], 07/01/2025 02:43:32 06/30/20 25 06/30/2025 CBC W/DIF F NRBC's 0.0 % 0.0 Not Available [facility] (Lab) [address] [facility], [place], [address], 07/01/2025 02:43:32 06/30/20 25 06/30/2025 CBC W/DIF F absolute NRBCs 0.0 10'3/ uL no refere nce range establ ished Not Available [facility] (Lab) [address] [facility], [place], [address], 07/01/2025 02:43:32 06/30/20 25 06/30/2025 CBC W/DIF F neutrophils 77.2 % 34.0-7 3.0 high Not Available [facility] (Lab) [address] [facility], [place], [address], 07/01/2025 02:43:32 06/30/20 25 06/30/2025 CBC W/DIF F lymphocytes 13.2 % 15.0-5 0.0 low Not Available [facility] (Lab) [address] [facility], [place], [address], 07/01/2025 02:43:32 06/30/20 25 06/30/2025 CBC W/DIF F monocytes 7.5 % 1.0-15 .0 Not Available [facility] (Lab) [address] [facility], [place], [address], 07/01/2025 02:43:32 06/30/20 25 06/30/2025 CBC W/DIF F eosinophils 0.9 % 0.0-8. 0 Not Available [facility] (Lab) [address] [facility], [place], [address], 07/01/2025 02:43:32 06/30/20 25 06/30/2025 CBC W/DIF F basophils 0.4 % 0.0-2. 0 Not Available [facility] (Lab) [address] [facility], [place], [address], 07/01/2025 02:43:32 06/30/20 25 06/30/2025 CBC W/DIF [...] separ ately if prese nt. Not Available [facility] (Lab) [address] [facility], [place], [address], 07/01/2025 02:43:32 06/30/20 25 06/30/2025 CBC W/DIF F absolute neutrophils 8.9 10'3/ uL 1.5-8. 0 high Not Available [facility] (Lab) [address] [facility], [place], [address], 07/01/2025 02:43:32 06/30/20 25 06/30/2025 CBC W/DIF F absolute lymphocytes 1.5 10'3/ uL 1.0-4. 0 Not Available [facility] (Lab) [address] [facility], [place], [address], 07/01/2025 02:43:32 06/30/20 25 06/30/2025 CBC W/DIF F absolute monocytes 0.9 10'3/ uL 0.2-1. 0 Not Available [facility] (Lab) [address] [facility], [place], [address], 07/01/2025 02:43:32 06/30/20 06/30/2025 CBC W/DIF F absolute eosinophils 0.1 10'3/ uL 0.0-0. 6 Not Available [facility] (Lab) [address], [place], [address], 07/01/2025 02:43:32 06/30/2006/30/2025 CBC W/DIF F absolute basophils 0.1 10'3/ uL 0.0-0. 3 Not Available [facility] (Lab) [address], [place], [address], 07/01/2025 02:43:32 06/30/2006/30/2025 CBC W/DIF F absolute [...] calzada book. nm.or g/gen derx Not Available [facility] (Lab) [address], [place], [address], 07/01/2025 02:43:32 07/12/20 25 07/12/2025 CBC W/DIF F WBC 13.2 10'3/ uL 3.5-10 .5 high Not Available [facility] (Lab) [address], [place], [address], 07/13/2025 05:59:18 07/12/20 25 07/12/2025 CBC W/DIF F RBC 3.94 10'6/ uL (based on docume nted legal sex) 3.80-5 .20 Not Available [facility] (Lab) [address], [place], [address], 07/13/2025 05:59:18 07/12/20 25 07/12/2025 CBC W/DIF F HGB 11.9 g/dL (based on docume nted legal sex) 11.6-1 5.4 Not Available [facility] (Lab) [address], [place], [address], 07/13/2025 05:59:18 07/12/20 25 07/12/2025 CBC W/DIF F HCT 34.9 % (based on docume nted legal sex) 34.0-4 5.0 Not Available [facility] (Lab) [address], [place], [address], 07/13/2025 05:59:18 07/12/20 25 07/12/2025 CBC W/DIF F MCV 88.6 fL 80.0-9 9.0 Not Available [facility] (Lab) [address], [place], [address], 07/13/2025 05:59:18 07/12/20 25 07/12/2025 CBC W/DIF F MCH 30.2 pg 27.0-3 4.0 Not Available [facility] (Lab) [address], [place], [address], 07/13/2025 05:59:18 07/12/20 25 07/12/2025 CBC W/DIF F MCHC 34.1 g/dL 32.0-3 5.5 Not Available [facility] (Lab) [address], [place], [address], 07/13/2025 05:59:18 07/12/20 25 07/12/2025 CBC W/DIF F RDW 13.0 % 11.0-1 5.0 Not Available [facility] (Lab) [address], [place], [address], 07/13/2025 05:59:18 07/12/20 25 07/12/2025 CBC W/DIF F plt 110 10'3/ uL 150-40 0 low Not Available [facility] (Lab) [address], [place], [address], 07/13/2025 05:59:18 07/12/20 25 07/12/2025 CBC W/DIF F MPV 12.9 fL 8.8-12 .1 high Not Available [facility] (Lab) [address], [place], [address], 07/13/2025 05:59:18 07/12/20 25 07/12/2025 CBC W/DIF F NRBC's 0.0 % 0.0 Not Available [facility] (Lab) [address], [place], [address], 07/13/2025 05:59:18 07/12/20 25 07/12/2025 CBC W/DIF F absolute NRBCs 0.0 10'3/ uL no refere nce range establ ished Not Available [facility] (Lab) [address], [place], [address], 07/13/2025 05:59:18 07/12/20 25 07/12/2025 CBC W/DIF F neutrophils 75.1 % 34.0-7 3.0 high Not Available [facility] (Lab) [address], [place], [address], 07/13/2025 05:59:18 07/12/20 25 07/12/2025 CBC W/DIF F lymphocytes 12.6 % 15.0-5 0.0 low Not Available [facility] (Lab) [address], [place], [address], 07/13/2025 05:59:18 07/12/20 25 07/12/2025 CBC W/DIF F monocytes 9.7 % 1.0-15 .0 Not Available [facility] (Lab) [address] [facility], [place], [address], 07/13/2025 05:59:18 07/12/20 25 07/12/2025 CBC W/DIF F eosinophils 0.9 % 0.0-8. 0 Not Available [facility] (Lab) [address] [facility], [place], [address], 07/13/2025 05:59:18 07/12/20 25 07/12/2025 CBC W/DIF F basophils 0.5 % 0.0-2. 0 Not Available [facility] (Lab) [address] [facility], [place], [address], 07/13/2025 05:59:18 07/12/20 25 07/12/2025 CBC W/DIF [...] separ ately if prese nt. Not Available [facility] (Lab) [address] [facility], [place], [address], 07/13/2025 05:59:18 07/12/20 25 07/12/2025 CBC W/DIF F absolute neutrophils 9.9 10'3/ uL 1.5-8. 0 high Not Available [facility] (Lab) [address] [facility], [place], [address], 07/13/2025 05:59:18 07/12/20 25 07/12/2025 CBC W/DIF F absolute lymphocytes 1.7 10'3/ uL 1.0-4. 0 Not Available [facility] (Lab) [address] [facility], [place], [address], 07/13/2025 05:59:18 07/12/20 25 07/12/2025 CBC W/DIF F absolute monocytes 1.3 10'3/ uL 0.2-1. 0 high Not Available [facility] (Lab) [address] [facility], [place], [address], 07/13/2025 05:59:18 07/12/20 25 07/12/2025 CBC W/DIF F absolute eosinophils 0.1 10'3/ uL 0.0-0. 6 Not Available [facility] (Lab) [address], [place], [address], 07/13/2025 05:59:18 07/12/20 25 07/12/2025 CBC W/DIF F absolute basophils 0.1 10'3/ uL 0.0-0. 3 Not Available [facility] (Lab) [address], [place], [address], 07/13/2025 05:59:18 07/12/20 25 07/12/2025 CBC W/DIF [...] calzada book. nm.or g/gen derx Not Available [facility] (Lab) [address], [place], [address], 07/13/2025 05:59:18 07/24/20 25 07/24/2025 CBC W/DIF F WBC 14.4 10'3/ uL 3.5-10 .5 high Not Available [facility] (Lab) [address], [place], [address], 2025 04:12:09 07/24/20 25 07/24/2025 CBC W/DIF F RBC 4.15 10'6/ uL (based on docume nted legal sex) 3.80-5 .20 Not Available [facility] (Lab) [address], [place], [address], 2025 04:12:09 07/24/20 25 07/24/2025 CBC W/DIF F HGB 12.8 g/dL (based on docume nted legal sex) 11.6-1 5.4 Not Available [facility] (Lab) [address], [place], [address], 2025 04:12:09 07/24/20 25 07/24/2025 CBC W/DIF F HCT 37.2 % (based on docume nted legal sex) 34.0-4 5.0 Not Available [facility] (Lab) [address], [place], [address], 2025 04:12:09 07/24/20 25 07/24/2025 CBC W/DIF F MCV 89.6 fL 80.0-9 9.0 Not Available [facility] (Lab) [address], [place], [address], 2025 04:12:09 07/24/20 25 07/24/2025 CBC W/DIF F MCH 30.8 pg 27.0-3 4.0 Not Available [facility] (Lab) [address], [place], [address], 2025 04:12:09 07/24/20 25 07/24/2025 CBC W/DIF F MCHC 34.4 g/dL 32.0-3 5.5 Not Available [facility] (Lab) [address], [place], [address], 2025 04:12:09 07/24/20 25 07/24/2025 CBC W/DIF F RDW 14.1 % 11.0-1 5.0 Not Available [facility] (Lab) [address] [place], [address], 2025 04:12:09 07/24/20 25 07/24/2025 CBC W/DIF F plt 115 10'3/ uL 150-40 0 low Not Available [facility] (Lab) [address] [place], [address], 2025 04:12:09 07/24/20 25 07/24/2025 CBC W/DIF F MPV 13.3 fL 8.8-12 .1 high Not Available [facility] (Lab) [address] [facility], [place], [address], 2025 04:12:09 07/24/20 25 07/24/2025 CBC W/DIF F NRBC's 0.0 % 0.0 Not Available [facility] (Lab) [address] [facility], [place], [address], 2025 04:12:09 07/24/20 25 07/24/2025 CBC W/DIF F absolute NRBCs 0.0 10'3/ uL no refere nce range establ ished Not Available [facility] (Lab) [address] [place], [address], 2025 04:12:09 07/24/20 25 07/24/2025 CBC W/DIF F neutrophils 75.6 % 34.0-7 3.0 high Not Available [facility] (Lab) [address] [place], [address], 2025 04:12:09 07/24/20 25 07/24/2025 CBC W/DIF F lymphocytes 12.3 % 15.0-5 0.0 low Not Available [facility] (Lab) [address] [place], [address], 2025 04:12:09 07/24/20 25 07/24/2025 CBC W/DIF F monocytes 9.3 % 1.0-15 .0 Not Available [facility] (Lab) [address] [place], [address], 2025 04:12:09 07/24/20 25 07/24/2025 CBC W/DIF F eosinophils 0.6 % 0.0-8. 0 Not Available [facility] (Lab) [address] [place] [facility] [place], [address], 2025 04:12:09 07/24/20 25 07/24/2025 CBC W/DIF F basophils 0.5 % 0.0-2. 0 Not Available [facility] (Lab) [address] [facility], [place], [address], 2025 04:12:09 07/24/20 25 07/24/2025 CBC W/DIF [...] separ ately if prese nt. Not Available [facility] (Lab) [address] [facility], [place], [address], 2025 04:12:09 07/24/20 25 07/24/2025 CBC W/DIF F absolute neutrophils 10.8 10'3/ uL 1.5-8. 0 high Not Available [facility] (Lab) [address] [facility], [place], [address], 2025 04:12:09 07/24/20 25 07/24/2025 CBC W/DIF F absolute lymphocytes 1.8 10'3/ uL 1.0-4. 0 Not Available [facility] (Lab) [address] [facility], [place], [address], 2025 04:12:09 07/24/20 25 07/24/2025 CBC W/DIF F absolute monocytes 1.3 10'3/ uL 0.2-1. 0 high Not Available [facility] (Lab) [address] [place], [address], 2025 04:12:09 07/24/20 25 07/24/2025 CBC W/DIF F absolute eosinophils 0.1 10'3/ uL 0.0-0. 6 Not Available [facility] (Lab) [address] [facility], [place], [address], 2025 04:12:09 07/24/20 25 07/24/2025 CBC W/DIF F absolute basophils 0.1 10'3/ uL 0.0-0. 3 Not Available [facility] (Lab) [address], [place], [address], 2025 04:12:09 07/24/20 25 07/24/2025 CBC W/DIF F absolute immature granulocytes 0.3 10'3/ uL 0.00-0 .10 high Refer ence range s for nonbi nary/ inter sex or unspe cifie d gende r patie nts have not been estab lishe d. [facility]as [facility] for range s estab lishe d for cisge nder patie nts and evalu ate in the clini randal kiera xt of the indiv idual patie nt: https ://misael calzada book. nm.or g/gen derx Not Available [facility] (Lab) [address], [place], [address], 2025 04:12:09 07/24/2007/24/2025 CULTU RE: GROUP B STREP SCREE N, REFLE X SUSCE PTIBI LITY result report SEE RESULT S BELOW Test: Cultu re: Group B Strep , Refle x Susce ptibi lity ([facility] ) Speci men Sourc e: Vagin a/Rec mireya Speci men Type: Vagin al/Re ctal Speci men Date: 07/24 1127 Resul t Date: 07/27 1741 Resul t Statu s: Final resul t Abnor mal: No Resul ting Lab: [facility] [address] [facility] [address] Tel: CULTU RE ----- ----- ----- --- No Group B strep isola alfredo at 2 days (lisa ctive broth enhan noelle t) Not Available [facility] (Lab) [address] [facility], [place], [address], 07/27/2025 18:44:14 08/04/20 25 08/04/2025 CBC (HEMO GRAM) WBC 12.0 10'3/ uL 3.5-10 .5 high Not Available [facility] (Lab) [address] [facility], [place], [address], 08/08/2025 19:28:07 08/04/20 25 08/04/2025 CBC (HEMO GRAM) RBC 4.39 10'6/ uL (based on docume nted legal sex) 3.80-5 .20 Not Available [facility] (Lab) [address] [facility], [place], [address], 08/08/2025 19:28:07 08/04/20 25 08/04/2025 CBC (HEMO GRAM) HGB 13.4 g/dL (based on docume nted legal sex) 11.6-1 5.4 Not Available [facility] (Lab) [address] [facility], [place], [address], 08/08/2025 19:28:07 08/04/20 25 08/04/2025 CBC (HEMO GRAM) HCT 39.3 % (based on docume nted legal sex) 34.0-4 5.0 Not Available [facility] (Lab) [address] [facility], [place], [address], 08/08/2025 19:28:07 08/04/20 25 08/04/2025 CBC (HEMO GRAM) MCV 89.5 fL 80.0-9 9.0 Not Available [facility] (Lab) [address] [facility], [place], [address], 08/08/2025 19:28:07 08/04/20 25 08/04/2025 CBC (HEMO GRAM) MCH 30.5 pg 27.0-3 4.0 Not Available [facility] (Lab) [address] [facility], [place], [address], 08/08/2025 19:28:07 08/04/20 25 08/04/2025 CBC (HEMO GRAM) MCHC 34.1 g/dL 32.0-3 5.5 Not Available [facility] (Lab) [address] [facility], [place], [address], 08/08/2025 19:28:07 08/04/20 25 08/04/2025 CBC (HEMO GRAM) RDW 13.6 % 11.0-1 5.0 Not Available [facility] (Lab) [address] [facility], [place], [address], 08/08/2025 19:28:07 08/04/20 25 08/04/2025 CBC (HEMO GRAM) plt 113 10'3/ uL 150-40 0 low Not Available [facility] (Lab) [address] [facility], [place], [address], 08/08/2025 19:28:07 08/04/20 25 08/04/2025 CBC (HEMO GRAM) MPV 13.3 fL 8.8-12 .1 high Not Available [facility] (Lab) [address] [facility], [place], [address], 08/08/2025 19:28:07 08/04/20 25 08/04/2025 CBC (HEMO GRAM) NRBC's 0.0 % 0.0 Not Available [facility] (Lab) [address] [facility], [place], [address], 08/08/2025 19:28:07 08/04/20 25 08/04/2025 CBC (HEMO GRAM) absolute NRBCs 0.0 10'3/ uL no refere nce range establ ished Refer ence range s for nonbi nary/ [...] calzada book. nm.or g/gen derx Not Available [facility] (Lab) [address], [place], [address], 08/08/2025 19:28:07 08/04/20 25 08/04/2025 MELONY TIN / IRON / TRANS MELONY N / TIBC iron 110 ug/dL 40-170 Not Available [facility] (Lab) [address], [place], [address], 08/08/2025 19:28:08 08/04/20 25 08/04/2025 MELONY TIN / IRON / TRANS MELONY N / TIBC transferrin 409 mg/dL 200-36 0 high Not Available [facility] (Lab) [address], [place], [address], 08/08/2025 19:28:08 08/04/20 25 08/04/2025 MELONY TIN / IRON / TRANS MELONY N / TIBC ferritin 115.4 NG/mL 8.0-25 2.0 Not Available [facility] (Lab) [address] [facility], [place], [address], 08/08/2025 19:28:08 08/04/20 25 08/04/2025 MELONY TIN / IRON / TRANS MELONY N / TIBC TIBC 573 ug/dL 250-45 0 high Not Available [facility] (Lab) [address] [facility], [place], [address], 08/08/2025 19:28:08 08/04/20 25 08/04/2025 MELONY TIN / IRON / TRANS MELONY N / TIBC iron saturation 19 % 20-55 low Not Available [facility] (Lab) [address], [place], [address], 08/08/2025 19:28:08 08/04/20 25 08/04/2025 VITAM IN B12 / FOLAT E PANEL vitamin B12 423 pg/mL 180-91 4 Vianey l Range : 180-9 14 pg/mL . Indet ermin ate Range : 145-1 80 pg/mL . Defic ient Range : <=145 pg/mL . Not Available [facility] (Lab) [address] [facility], [place], [address], 08/08/2025 19:28:08 08/04/20 25 08/04/2025 VITAM IN B12 / FOLAT E PANEL folate, serum >22.3 NG/mL >=6.0 Not Available [facility] (Lab) [address] [facility], [place], [address], 08/08/2025 19:28:08 08/04/20 25 08/04/2025 INTRI NSIC FACTO R BLOCK ING ANTIB TIM, SERUM intrinsic factor blocking Ab, S Negati ve negati ve Not Available [facility] (Lab) [address] [facility], [place], [address], 08/08/2025 19:28:08 08/04/20 25 08/04/2025 INTRI NSIC FACTO R BLOCK ING ANTIB TIM, SERUM comment SEE COMMEN TS Intri nsic Facto r Block ing Antib tim (IFBA ) antib odies are absen t in appro ximat ignacio 50% of indiv idual s with perni cious anemi a (PA). The absen ce of eleva alfredo IFBA antib odies does not rule out the prese nce of PA; furth er studi es such as gastr in testi ng may be indic ated. Test Perfo rmed by: [facility] [address], [facility] [place] [address] Lab Direc tor: Lawanda Goode nn Ph.D. ; CLIA# [id number] Not Available [facility] (Lab) [address] [facility], [place], [address], 08/08/2025 19:28:08 08/04/20 25 08/04/2025 PARIE LUIS CELL ANTIB ODIES , IGG, SERUM parietal cell Ab, IgG, S <10.0 U <=20.0 (negat kvng) Test Perfo rmed by: [facility] [address], [facility] [place] [address] Lab Direc tor: Lawanda Goode nn Ph.D. ; CLIA# [id number] Not Available [facility] (Lab) [address] [facility], [place], [address], 08/08/2025 19:28:09 08/04/20 25 08/04/2025 CBC W/DIF F CBC and differential CANCEL LED No Speci men Recei carin Not Available [facility] (Lab) [address] [facility], [place], [address], 08/10/2025 17:13:18 08/04/20 25 08/04/2025 VITAM IN B12 / FOLAT E PANEL vitamin B12/folate panel CANCEL LED No Speci men Recei carin Not Available [facility] (Lab) [address] [facility], [place], [address], 08/10/2025 17:13:19 08/04/20 25 08/04/2025 CBC (HEMO GRAM) CBC (hemogram) CANCEL LED No Speci men Recei carin Not Available [facility] (Lab) [address] [facility], [place], [address], 08/10/2025 17:14:29 08/04/20 25 08/04/2025 MELONY TIN / IRON / TRANS MELONY N / TIBC ferritin / iron / transferrin / TIBC (nmh/lfh/gl/ cdh/kh/vw/nw r) CANCEL LED No Speci men Recei carin Not Available [facility] (Lab) [address] [facility], [place], [address], 08/10/2025 17:25:30 08/10/20 25 08/10/2025 CBC W/DIF F WBC 12.2 10'3/ uL 3.5-10 .5 high Not Available [facility] (Lab) [address], [place], [address], 08/11/2025 09:03:58 08/10/20 25 08/10/2025 CBC W/DIF F RBC 4.49 10'6/ uL (based on docume nted legal sex) 3.80-5 .20 Not Available [facility] (Lab) [address], [place], [address], 08/11/2025 09:03:58 08/10/20 25 08/10/2025 CBC W/DIF F HGB 13.6 g/dL (based on docume nted legal sex) 11.6-1 5.4 Not Available [facility] (Lab) [address], [place], [address], 08/11/2025 09:03:58 08/10/20 25 08/10/2025 CBC W/DIF F HCT 39.9 % (based on docume nted legal sex) 34.0-4 5.0 Not Available [facility] (Lab) [address], [place], [address], 08/11/2025 09:03:58 08/10/20 25 08/10/2025 CBC W/DIF F MCV 88.9 fL 80.0-9 9.0 Not Available [facility] (Lab) [address], [place], [address], 08/11/2025 09:03:58 08/10/20 25 08/10/2025 CBC W/DIF F MCH 30.3 pg 27.0-3 4.0 Not Available [facility] (Lab) [address], [place], [address], 08/11/2025 09:03:58 08/10/20 25 08/10/2025 CBC W/DIF F MCHC 34.1 g/dL 32.0-3 5.5 Not Available [facility] (Lab) [address] [facility], [place], [address], 08/11/2025 09:03:58 08/10/20 25 08/10/2025 CBC W/DIF F RDW 14.1 % 11.0-1 5.0 Not Available [facility] (Lab) [address] [facility], [place], [address], 08/11/2025 09:03:58 08/10/20 25 08/10/2025 CBC W/DIF F plt 117 10'3/ uL 150-40 0 low Not Available [facility] (Lab) [address] [facility], [place], [address], 08/11/2025 09:03:58 08/10/20 25 08/10/2025 CBC W/DIF F MPV 14.0 fL 8.8-12 .1 high Not Available [facility] (Lab) [address] [facility], [place], [address], 08/11/2025 09:03:58 08/10/20 25 08/10/2025 CBC W/DIF F NRBC's 0.0 % 0.0 Not Available [facility] (Lab) [address] [facility], [place], [address], 08/11/2025 09:03:58 08/10/20 25 08/10/2025 CBC W/DIF F absolute NRBCs 0.0 10'3/ uL no refere nce range establ ished Not Available [facility] (Lab) [address] [facility], [place], [address], 08/11/2025 09:03:58 08/10/20 25 08/10/2025 CBC W/DIF F neutrophils 75.8 % 34.0-7 3.0 high Not Available [facility] (Lab) [address] [facility], [place], [address], 08/11/2025 09:03:58 08/10/20 25 08/10/2025 CBC W/DIF F lymphocytes 12.9 % 15.0-5 0.0 low Not Available [facility] (Lab) [address] [facility], [place], [address], 08/11/2025 09:03:58 08/10/20 25 08/10/2025 CBC W/DIF F monocytes 8.9 % 1.0-15 .0 Not Available [facility] (Lab) [address] [facility], [place], [address], 08/11/2025 09:03:58 08/10/20 25 08/10/2025 CBC W/DIF F eosinophils 0.7 % 0.0-8. 0 Not Available [facility] (Lab) [address] [facility], [place], [address], 08/11/2025 09:03:58 08/10/20 25 08/10/2025 CBC W/DIF F basophils 0.3 % 0.0-2. 0 Not Available [facility] (Lab) [address], [place], [address], 08/11/2025 09:03:58 08/10/20 25 08/10/2025 CBC W/DIF F immature granulocytes 1.4 % no define d refere nce range Immat ure Granu locyt es (IG) repre sents autom ated enume ratio n of Metam yeloc ytes, Myelo cytes and Promy elocy umair when IG is < 5%. Blast s are not inclu ded in IG and repor alfredo separ ately if prese nt. Not Available [facility] (Lab) [address], [place], [address], 08/11/2025 09:03:58 08/10/20 25 08/10/2025 CBC W/DIF F absolute neutrophils 9.3 10'3/ uL 1.5-8. 0 high Not Available [facility] (Lab) [address], [place], [address], 08/11/2025 09:03:58 12/11/08/10/2025 CBC W/DIF F absolute lymphocytes 1.6 10'3/ uL 1.0-4. 0 Not Available [facility] (Lab) [address], [place], [address], 08/11/2025 09:03:58 08/10/20 25 08/10/2025 CBC W/DIF F absolute monocytes 1.1 10'3/ uL 0.2-1. 0 high Not Available [facility] (Lab) [address], [place], [address], 08/11/2025 09:03:58 08/10/20 25 08/10/2025 CBC W/DIF F absolute eosinophils 0.1 10'3/ uL 0.0-0. 6 Not Available [facility] (Lab) [address], [place], [address], 08/11/2025 09:03:58 08/10/2008/10/2025 CBC W/DIF F absolute basophils 0.0 10'3/ uL 0.0-0. 3 Not Available [facility] [facility] (Lab) [address] [place], [address], 08/11/2025 09:03:58 08/10/20 25 08/10/2025 CBC W/DIF F absolute immature granulocytes 0.2 10'3/ uL 0.00-0 .10 high Refer ence range s for nonbi nary/ inter sex or unspe cifie d gende r patie nts have not been estab lishe d. [facility]as [facility] for range s estab lishe d for cisge nder patie nts and evalu ate in the clini randal kiera xt of the indiv idual patie nt: https ://la elsi book. nm.or g/gen derx Not Available [facility] (Lab) [address] [facility], [place], [address], 08/11/2025 09:03:58 02/11/2002/10/2025 US, obste tric, nucha l trans lucen cy No observ ation record ed. [facility] [address], [place], [address], 02/10/2025 18:38:42 02/11/2002/10/2025 US, obste tric, follo w-up No observ ation record ed. [email or web address], [place], [address], 02/13/2025 09:20:03 04/03/20 25 04/03/2025 US, obste tric, 2nd or 3rd trime ster No observ ation record ed. [email or web address] [place] [address] [address], [place], [address], 04/03/2025 18:43:20 04/03/20 25 04/03/2025 US, obste tric, 2nd or 3rd trime ster No observ ation record ed. [email or web address] [address] [address], [place], [address], 04/05/2025 17:47:52 04/21/2004/21/2025 non-s tress test No observ ation record ed. [place] [address], [place], [address], 04/24/2025 12:03:28 05/02/20 25 05/02/2025 US, obste tric, follo w-up No observ ation record ed. [facility] [address], [place], [address], 05/02/2025 12:58:26 05/02/2005/02/2025 US, obste tric, follo w-up No observ ation record ed. ROBERT [facility] [address], [place], [address], 05/03/2025 18:13:01 05/29/2005/29/2025 non-s tress test No observ ation record ed. [place] [address], [place], [address], 05/31/2025 15:39:22 06/20/20 25 06/20/2025 imagi ng/di agnos tic resul t No observ ation record ed. [facility] [address] [place] [address], [address], 06/20/2025 13:33:45 06/20/2006/20/2025 US, obste tric, follo w-up No observ ation record ed. [email or web address] [facility] [address] [place] [address], [address], 06/27/2025 17:32:46 07/03/20 25 07/03/2025 non-s tress test No observ ation record ed. [address] [address], [place], [address], 07/19/2025 15:34:42 07/03/2007/03/2025 imagi ng/di agnos tic resul t No observ ation record ed. [address] [address], [place], [address], 07/03/2025 11:55:37 07/26/20 25 07/26/2025 imagi ng/di agnos tic resul t No observ ation record ed. [address] [address], [place], [address], 07/26/2025 18:39:01 07/26/20 25 07/26/2025 imagi ng/di agnos tic resul t No observ ation record ed. [facility] [address] [place] [address], [address], 07/26/2025 18:39:01 07/26/20 25 07/26/2025 imagi ng/di agnos tic resul t No observ ation record ed. [facility] [address] [place], [address], 07/26/2025 18:39:01 08/14/20 25 08/14/2025 imagi ng/di agnos tic resul t No observ ation record ed. [facility] [address] [place], [address], 08/14/2025 09:43:44 08/14/20 25 08/14/2025 imagi ng/di agnos tic resul t No observ ation record ed. [facility] [address] [place], [address], 08/14/2025 14:53:30 Result Notes None recorded. Problems Name Problem SNOMED Code Status Onset Date Resolution Date Notes Provider Name and Address Organization Details Recorded Time Anxiety 54286890 Active 2024 Kristen Ruffin [facility] 11:01:06 01185996 Active 2024 Aleah Bedolla [facility] 11:57:32 Platelet count below reference range 605776966 Active 2024 Referral faxed to [facility] 06/01 scheduled 06/20 0900 Level II us and consult Zoey Tarango [facility] 11:50:53 Problem Notes None recorded. Procedures Surgical History Date Name Laterality Status Provider Name and Address Organization Details Recorded Time 5 Date of Last Pap Smear completed Kristen Ruffin [facility] 01/13/2025 11:01:13 7 operative procedure on wrist completed Aleah Bedolla [facility] 02/10/2025 11:57:07 Imaging Results None recorded. Procedure Notes None recorded. Medical Equipment None Reported. Allergies No known drug allergies Medications Name Sig Start Date Stop Date Status Note LastModified by Organization Details LastModified Time selenarone 5 mg tablet TAKE 1 TO 2 [...] Available Not Available Not Avai lable Vitals None Recorded Social History Question Answer Notes LastModified by Organizat ion Details LastModified Time Tobacco Smoking Status Never Smoker Kristen Ruffin [facility], [facility] 01/13/2025 11:05:22 If You Are , What Was Your Level Of Alcohol Consumption Prior To ? Occasional [email or web address] Information not available 01/13/2025 Are You Blind Or Do You Have Difficulty Seeing? No [email or web address] Information n ot available 01/13/2025 What Is Your Level Of Caffeine Consumption? Occasional [email or web address] Information not available 01/13/2025 In The 14 Days Before Symptom Onset, Have You Had Close Contact With A Laboratory-confirm ed COVID-19 While That Case Was Ill? No Information n ot available 01/13/2025 In The 14 Days Before Symptom Onset, Have You Had Close Contact With A Person Who Is Under Investigation For COVID-19 While That Person Was Ill? No [email or web address] Information not available 01/13/2025 Have You Been To An Area Known To Be High Risk For COVID-19? No [email or web address] Information not available 01/13/2025 Are You Deaf Or Do You Have Serious Difficulty Hearing? No Information not available 01/13/2025 Do You Have Smoke And Carbon Monoxide Detectors In Your Home? Yes [email or web address] Information not available 01/13/2025 Do You Use Sunscreen Routinely? Yes Information not available 01/13/2025 Has Tobacco Cessation Counseling Been Provided? No Information not available 01/13/2025 Have You Used IV Drugs? No [email or web address] Information not available 01/13/2025 Do You Have Difficulty Walking Or Climbing Stairs? No [email or web address] Information not available 01/13/2025 Sex: Unknown Functional Status Question Answer Note LastModified by Organizat ion Details LastModified Time Do you use any illicit or recreational drugs? No [email or web address] Information not available 01/13/2025 Do you or have you ever used any other forms of tobacco or nicotine? Yes [email or web address] Information not available 01/13/2025 What is your level of alcohol consumption? None [email or web address] Information not available 01/13/2025 Are you able to walk independently without assistance or assistive devices? YESWOREST [email or web address] Information not available 01/13/2025 Are you able to care for yourself independently? Yes [email or web address] Information not available 01/13/2025 Do you have difficulty dressing, bathing, grooming, or toileting? No [email or web address] Information not available 01/13/2025 Do you or have you ever used e-cigarettes or vape? Former user of electronic cigarettes [email or web address] Information not available 01/13/2025 Mental Status None recorded. Family History Relationship Description Onset Age of this Age Resolved Age Notes LastModified by Organization Details LastModified Time Unspecified Relation Family history unknown [email or web address] Not available 2024 13:48:03 Paternal Grandfather Malignant neoplasm of prostate [email or web address] Not available 07/31 15:39:21 Maternal Grandfather Malignant neoplasm of lung [email or web address] Not available 01/13 11:03:40 Maternal Grandmother Malignant neoplasm of pancreas [email or web address] Not available 07/31 15:39:21 Maternal Aunt Malignant neoplasm of breast [email or web address] Not available 2024 13:48:03 Father Leukemia [email or web address] Not availa ble 08/10/2025 15:39:21 Mother Diabetes mellitus [email or web address] Not available 01/13 11:04:57 Medical History Condition [...] ICD10 Code Diagnosis IMO Codes Diagnosis Note [id number] JOLIE TOMLINSON MD [place] [address] [address] 07/24/2025 11:18:52 07/24/2025 12:20:34 Thrombocytopenic disorder 899888872 D69.6 35834 - plt 125>131>77 >110- repeat today- MFM consult Gestation period, 36 weeks 70198489 Z3A.36 7041561 [id number] JOLIE TOMLINSON MD [place] [address],[place] [address] 08/04/2025 15:30:27 08/04/2025 16:22:08 Cobalamin deficiency 501996849 E53.8 799780 - on injections Platelet c ount below reference range 083190389 D69.6 72258669 - plt 125>131>11 3>115- MFM consult Gestation period, 37 weeks 69645246 Z3A.37 5736666 - continue PNV [id number] JOLEI TOMLINSON MD [place] [address],[place] [address] 08/10/2025 15:38:43 08/10/2025 16:32:04 Platelet count below reference range 730670327 D69.6 72597705 - plt 125>131>11 3>115>113- repeat today Gestation period, 38 weeks 86757953 Z3A.38 9490617 - continue PNV [id number] JOLIE TOMLINSON MD [facility] [address] [address] 08/14/2025 16:37:35 08/14/2025 17:11:26 Health Concerns Section Related Observation LastModified by Organization Detai ls LastModified Time None Recorded Concern Status LastModified by Organization Details LastModified Time None Recorded Payers Encounter Date Sequence Insurance Name Policy Number Policy Marie Covered Member ID Marie Member ID Guarantor Name 08/14/2025 1 [id number] [id number] Kya Angulo [id number] Kya Angulo OBGyn Episode Ob Episode Information Episode Created Date Number of Fetuses Patient Bloodtype Patient rh Status Prepregnancy Weight lbs Domestic Partner Domestic Partner Phone Father 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 Problem Name Start Date End Date Resolution Snomed Code Not e Platelet count below reference range 06/01/2025 [id number] Referral fax ed to [facility] 06/01 scheduled 06/20 0900 Level II [...] Weight in lbs Pre/Post Dialysis Refused Weight 153.787663703354 BP Diastolic BP Location Tested BP Systolic BP Type 77 L arm 122 sitting Fetus Heart Rate Present A Present Fetus Movement Comments Patient presents to [facility] care. otherwise uncomplicated. No bleeding or cramping. Nausea continues to worsen, was seen in the ER 6/9 for fluids. Taking zofran PRN. Some improvement with B6. NT/NB wnl today, desires NIPT. Will draw today with new OB labs. RTC 4 weeks for routine care. Flowsheet Date 03/10/2025 Kirkland Score Blood Edema Fundus Height Fundus Units Glucose Ketones Leukocytes Nitrite Labor Signs Protein Cervic Dilation Cervic Effacement Cervic Station Type Weight in lbs Pre/Post Dialysis Refused Weight 156.794171223268 BP Diastolic BP Location Tested BP Systolic [...] Weight in lbs Pre/Post Dialysis Refused Weight 160.472990406664 BP Diastolic BP Location Tested BP Systolic [...] Weight in lbs Pre/Post Dialysis Refused Weight 165.192277755066 BP Diastolic BP Location Tested BP Systolic [...] Type Weight in lbs Pre/Post Dialysis Refused 176.987310896491 BP Diastolic BP Location Tested BP Systolic BP Type 78 L arm 118 sitting Fetus Heart Rate Present A 150 Fetus Movement A Yes Comments Had an episode of DFM yester day, went to [facility] and had negative workup. No cramping or bleeding. GCT and labs today, will draw CBC as well. Discussed Tdap, RSV, and flu vaccines. RTC 2 weeks. Flowsheet Date 06/13/2025 Kirkland Score Blood Edema Fundus Height Fundus Units Glucose Ketones Leukocytes Nitrite Labor Signs Protein Cervic Dilation Cervic Effacement Cervic Station Type Weight in lbs Pre/Post Dialysis Refused 181.198969077953 BP Diastolic BP Location Tested BP Systolic [...] Weight in lbs Pre/Post Dialysis Refused Weight 178.177499226480 BP Diastolic BP Location Tested BP Systolic BP Type 78 L arm 112 sitting Fetus Heart Rate Present A 140 Fetus Movement A Yes Comments Good movement. No cram ping or bleeding. Saw MFM, recommend platelet counts every visit. Home Hospice Rn appointment next week to determine if autoimmune vs gestational. EFW 92%, AC 93%; discussed 39 week induction, plan for 12/15 PM. Preadmission scheduled. RSV vaccine discussed. RTC 2 weeks. Flowsheet Date 07/12/2025 Kirkland Score Blood Edema Fundus Height Fundus Units Glucose Ketones Leukocytes Nitrite Labor Signs Protein Cervic Dilation Cervic Effacement Cervic Station Type Weight in lbs Pre/Post Dialysis Refused Weight 185.936220460294 BP Diastolic BP Location Tested BP Systolic [...] Weight in lbs Pre/Post Dialysis Refused Weight 186.391191662648 BP Diastolic BP Location Tested BP Systolic [...] Weight in lbs Pre/Post Dialysis Refused Weight 187.702341141559 BP Diastolic BP Location Tested BP Systolic [...] Weight in lbs Pre/Post Dialysis Refused Weight 189.224396896585 BP Diastolic BP Location Tested BP Systolic [...]
--- OUTSIDE RECORDS SUMMARY | 2025-08-14 17:57 | XMS_ITS | Continuity of Care Document ---
Author Organization [facility] Address [address] [place] [address] Care Team Providers Care Tanning Consultant Name Role Phone SHERYL DICKSON Primary Care Provider [phone] Assessment No assessment recorded. Plan of Treatment Reminders Order Date Submit Date Provider Last Modified By Organization Details Last Modified Time Details Appointments INDUCTION 2024 04:00P Cosmo TOMLINSON MD Not available Not available Not available Lab CBC w/ auto diff [address] [facility] (Lab), [address] [facility], [place], [address], 07/01/2025 02:43:32 Referral None recorded. Procedures None [...] [facility] [address], [place], [address], 02/16/2025 19:59:32 02/17/20 25 02/16/2025 [UNIT Y] ANEUP LOIDY NIPT 22Q11.2 microdeletio n LOW RISK <1 in 10,000 normal Not Available [facility] [address], [place], [address], 02/16/2025 19:59:32 02/17/20 25 02/16/2025 [UNIT Y] ANEUP LOIDY NIPT sex chromosome aneuploidy NOT DETECT ED normal Not Available [facility] [address], [place], [address], 02/16/2025 19:59:32 02/17/20 25 02/16/2025 [UNIT Y] ANEUP LOIDY NIPT monosomy X LOW RISK <1 in 10,000 normal Not Available [facility] [address], [place], [address], 02/16/2025 19:59:32 02/17/20 25 02/16/2025 [UNIT Y] ANEUP LOIDY NIPT trisomy 13 LOW RISK <1 in 10,000 normal Not Available [facility] [address], [place], [address], 02/16/2025 19:59:32 02/17/20 25 02/16/2025 [UNIT Y] ANEUP LOIDY NIPT trisomy 18 LOW RISK <1 in 10,000 normal Not Available [facility] [address], [place], [address], 02/16/2025 19:59:32 02/17/20 25 02/16/2025 [UNIT Y] ANEUP LOIDY NIPT trisomy 21 LOW RISK <1 in 10,000 normal Not Available [facility] [address], [place], [address], 02/16/2025 19:59:32 02/17/20 25 02/16/2025 [UNIT Y] ANEUP LOIDY NIPT sex MALE normal Not Available [facility] [address], [place], [address], 02/16/2025 19:59:32 02/17/20 25 02/16/2025 [UNIT Y] ANEUP LOIDY NIPT gestation SINGLE TON normal Not Available [facility] [address], [place], [address], 02/16/2025 19:59:32 02/17/20 25 02/16/2025 [UNIT Y] ANEUAnuradha AUGUSTINT for detailed report, see pdf See PDF normal Not Available [facility] [address], [place], [address], 02/16/2025 19:59:32 02/22/20 25 02/21/2025 [UNIT Y] FLETCHER Rose sickle cell disease/beta -thalassemia /hemoglobino pathies carrier screen NEGATI VE normal Not Available [facility] [address], [place], [address], 02/21/2025 14:09:41 02/22/20 25 02/21/2025 [UNIT Y] FLETCHER Rose alpha-thalas semia carrier screen NEGATI VE normal Not Available [facility] [address], [place], [address], 02/21/2025 14:09:41 02/22/20 25 02/21/2025 [UNIT Y] FLETCHER Rose cystic fibrosis carrier screen NEGATI VE normal Not Available [facility] [address], [place], [address], 02/21/2025 14:09:41 02/22/20 25 02/21/2025 [UNIT Y] FLETCHER Rose spinal muscular atrophy carrier screen NEGATI VE 2 SMN1 copies , SNP not presen t normal Not Available [facility] [address], [place], [address], 02/21/2025 14:09:41 02/22/20 25 02/21/2025 [UNIT Y] FLETCHER Rose for detailed report, see pdf See PDF normal Not Available [facility] [address], [place], [address], 02/21/2025 14:09:41 02/11/2002/10/2025 CT/GC AND TRICH OMONA S VAGIN KARLO (RRNA ), URINE chlamydia trachomatis, PCR Negati ve negati ve Not Available [facility] (Lab) [address] [facility], [place], [address], 02/11/2025 12:05:33 02/11/20 25 02/10/2025 CT/GC AND TRICH OMONA S VAGIN KARLO (RRNA ), URINE neisseria gonorrhoeae, PCR Negati ve negati ve Not Available [facility] (Lab) [address], [place], [address], 02/11/2025 12:05:33 02/11/2002/10/2025 CT/GC AND TRICH OMONA S VAGIN KARLO (RRNA ), URINE trichomonas vaginalis ribosomal RNA (rrna) Negati ve negati ve Not Available [facility] (Lab) [address] [facility], [place], [address], 02/11/2025 12:05:33 02/11/20 25 02/10/2025 CBC W/DIF F WBC 8.7 10'3/ uL 3.5-10 .5 Not Available [facility] (Lab) [address] [facility], [place], [address], 02/11/2025 13:44:37 02/11/20 25 02/10/2025 CBC W/DIF F RBC 4.55 10'6/ uL (based on docume nted legal sex) 3.80-5 .20 Not Available [facility] (Lab) [address] [facility], [place], [address], 02/11/2025 13:44:37 02/11/20 25 02/10/2025 CBC W/DIF F HGB 13.7 g/dL (based on docume nted legal sex) 11.6-1 5.4 Not Available [facility] (Lab) [address] [facility], [place], [address], 02/11/2025 13:44:37 02/11/20 25 02/10/2025 CBC W/DIF F HCT 40.8 % (based on docume nted legal sex) 34.0-4 5.0 Not Available [facility] (Lab) [address], [place], [address], 02/11/2025 13:44:37 02/11/20 25 02/10/2025 CBC W/DIF F MCV 89.7 fL 80.0-9 9.0 Not Available [facility] (Lab) [address], [place], [address], 02/11/2025 13:44:37 02/11/20 25 02/10/2025 CBC W/DIF F MCH 30.1 pg 27.0-3 4.0 Not Available [facility] (Lab) [address], [place], [address], 02/11/2025 13:44:37 02/11/20 25 02/10/2025 CBC W/DIF F MCHC 33.6 g/dL 32.0-3 5.5 Not Available [facility] (Lab) [address], [place], [address], 02/11/2025 13:44:37 02/11/20 25 02/10/2025 CBC W/DIF F RDW 12.8 % 11.0-1 5.0 Not Available [facility] (Lab) [address] , [place], [address], 02/11/2025 13:44:37 02/11/20 25 02/10/2025 CBC W/DIF F plt 125 10'3/ uL 150-40 0 low Not Available [facility] (Lab) [address] [place], [address], 02/11/2025 13:44:37 02/11/20 25 02/10/2025 CBC W/DIF F MPV 13.5 fL 8.8-12 .1 high Not Available [facility] (Lab) [address] [facility], [place], [address], 02/11/2025 13:44:37 02/11/20 25 02/10/2025 CBC W/DIF F NRBC's 0.0 % 0.0 Not Available [facility] (Lab) [address] [facility], [place], [address], 02/11/2025 13:44:37 02/11/20 25 02/10/2025 CBC W/DIF F absolute NRBCs 0.0 10'3/ uL no refere nce range establ ished Not Available [facility] (Lab) [address] [facility], [place], [address], 02/11/2025 13:44:37 02/11/20 25 02/10/2025 CBC W/DIF F neutrophils 76.5 % 34.0-7 3.0 high Not Available [facility] (Lab) [address] [facility], [place], [address], 02/11/2025 13:44:37 02/11/20 25 02/10/2025 CBC W/DIF F lymphocytes 14.4 % 15.0-5 0.0 low Not Available [facility] (Lab) [address] [facility], [place], [address], 02/11/2025 13:44:37 02/11/20 25 02/10/2025 CBC W/DIF F monocytes 8.3 % 1.0-15 .0 Not Available [facility] (Lab) [address] [facility], [place], [address], 02/11/2025 13:44:37 02/11/20 25 02/10/2025 CBC W/DIF F eosinophils 0.3 % 0.0-8. 0 Not Available [facility] (Lab) [address] [place], [address], 02/11/2025 13:44:37 02/11/20 25 02/10/2025 CBC W/DIF F basophils 0.3 % 0.0-2. 0 Not Available [facility] (Lab) [address] [facility], [place], [address], 02/11/2025 13:44:37 02/11/2002/10/2025 CBC W/DIF F immature [...] Available [facility] (Lab) [address] [facility], [place], [address], 02/11/2025 13:44:37 02/11/20 25 02/10/2025 CBC W/DIF F absolute neutrophils 6.6 10'3/ uL 1.5-8. 0 Not Available [facility] (Lab) [address] [facility], [place], [address], 02/11/2025 13:44:37 02/11/20 25 02/10/2025 CBC W/DIF F absolute lymphocytes 1.3 10'3/ uL 1.0-4. 0 Not Available [facility] (Lab) [address] [facility], [place], [address], 02/11/2025 13:44:37 02/11/20 25 02/10/2025 CBC W/DIF F absolute monocytes 0.7 10'3/ uL 0.2-1. 0 Not Available [facility] (Lab) [address] [facility], [place], [address], 02/11/2025 13:44:37 02/11/20 25 02/10/2025 CBC W/DIF F absolute eosinophils 0.0 10'3/ uL 0.0-0. 6 Not Available [facility] (Lab) [address] [facility], [place], [address], 02/11/2025 13:44:37 02/11/20 25 02/10/2025 CBC W/DIF F absolute basophils 0.0 10'3/ uL 0.0-0. 3 Not Available [facility] (Lab) [address], [place], [address], 02/11/2025 13:44:37 02/11/20 25 02/10/2025 CBC W/DIF [...] [facility] ([facility] [address], [place], [address], 02/11/2025 13:44:37 02/11/20 25 02/10/2025 HIV 1/2 ANTIG EN/AN TIBOD Y, REFLE X CONFI RMATI ON HIV antigen/anti body Nonrea ctive nonrea ctive HIV-1 antig en and HIV-1 /HIV- 2 antib odies were not detec alfredo. No labor atory evide nce of HIV infec tion. Not Available [facility] (Lab) [address], [place], [address], 02/11/2025 13:44:38 02/11/2002/10/2025 HEPAT ITIS B SURFA [...] [facility] ([facility] [address], [place], [address], 02/11/2025 13:44:38 02/11/2002/10/2025 HEPAT ITIS C ANTIB TIM SCREE N, REFLE X TO CONFI RMATI ON hepatitis C antibody Non-re active non-re active Antib odies to HCV Not Detec alfredo, does not exclu de the possi bilit y of expos ure to HCV. Not Available [facility] (Lab) [address], [place], [address], 02/11/2025 13:44:39 02/11/20 25 02/10/2025 RUBEL LA IGG ANTIB TIM, QUANT rubella antibodies, IgG Reacti ve reacti ve Not Available [facility] (Lab) [address], [place], [address], 02/11/2025 13:44:39 02/11/20 25 02/10/2025 RUBEL LA IGG ANTIB TIM, QUANT rubella antibodies, IgG quant 47.1 IU/mL >=10 Non-r eacti ve (Non- Immun e) <10 IU/mL React kvng (Immu ne) > or = 10 IU/mL Not Available [facility] (Lab) [address] , [place], [address], 02/11/2025 13:44:39 02/11/20 25 02/10/2025 TYPE/ RH/SC REEN ABO/Rh type O POS Not Available [facility] (Lab) [address], [place], [address], 02/11/2025 13:44:40 02/11/2002/10/2025 TYPE/ RH/SC REEN antibody screen NEG Not Available [facility] (Lab) [address], [place], [address], 02/11/2025 13:44:40 02/11/20 25 02/10/2025 TYPE/ RH/SC REEN exp date 2024 23:59 Not Available [facility] (Lab) [address], [place], [address], 02/11/2025 13:44:40 02/11/20 25 02/10/2025 HEMOG LOBIN [...] [facility] ([facility] [address], [place], [address], 02/11/2025 13:44:40 02/11/20 25 02/10/2025 RPR SCREE N, REFLE X TITER /CONF IRMAT ION RPR qualitative Nonrea ctive nonrea ctive Not Available [facility] (Lab) [address], [place], [address], 02/11/2025 13:44:41 02/11/20 25 02/10/2025 drug scree n, urine Amphetamines : negati ve Not Available [facility] [address], [place], [address], 02/10/2025 12:55:20 02/11/20 25 02/10/2025 drug scree n, urine Cannabinoids : negati ve Not Available [facility] [address], [place], [address], 02/10/2025 12:55:20 02/11/20 25 02/10/2025 drug scree n, urine Cocaine: negati ve Not Available [facility] [address], [place], [address], 02/10/2025 12:55:20 02/11/20 02/10/2025 drug scree n, urine Opiates: negati ve Not Available [facility] [address], [place], [address], 02/10/2025 12:55:20 02/11/20 25 02/10/2025 drug scree n, urine Barbiturates : negati ve Not Available [facility] [address], [place], [address], 02/10/2025 12:55:20 02/11/20 25 02/10/2025 drug scree n, urine Benzodiazepi john: negati ve Not Available [facility] [address], [place], [address], 02/10/2025 12:55:20 03/10/20 25 03/10/2025 CULTU RE: URINE result report SEE RESULT S BELOW Test: Cultu re: Urine Speci men Sourc e: Urine Voide d Speci men Type: Urine Speci men Date: 2024 0938 Resul t Date: 20242 Resul t Statu s: Final resul t Abnor mal: No Resul ting Lab: [facility] [address] [address] Tel: CULTU RE ----- ----- ----- --- No growt h in 1 day (dete ction level of 10,00 0 colon ies / ml.) Not Available [facility] (Lab) [address] [place], [address], 03/11/2025 23:15:50 04/03/20 25 04/03/2025 CBC W/DIF F WBC 12.9 10'3/ uL 3.5-10 .5 high Not Available [facility] (Lab) [address] [facility], [place], [address], 04/04/2025 04:39:51 04/03/20 25 04/03/2025 CBC W/DIF F RBC 4.33 10'6/ uL (based on docume nted legal sex) 3.80-5 .20 Not Available [facility] (Lab) [address], [place], [address], 04/04/2025 04:39:51 04/03/2004/03/2025 CBC W/DIF F HGB 13.2 g/dL (based on docume nted legal sex) 11.6-1 5.4 Not Available [facility] (Lab) [address], [place], [address], 04/04/2025 04:39:51 04/03/2004/03/2025 CBC W/DIF F HCT 40.2 % (based on docume nted legal sex) 34.0-4 5.0 Not Available [facility] (Lab) [address], [place], [address], 04/04/2025 04:39:51 04/03/2004/03/2025 CBC W/DIF F MCV 92.8 fL 80.0-9 9.0 Not Available [facility] (Lab) [address], [place], [address], 04/04/2025 04:39:51 04/03/2004/03/2025 CBC W/DIF F MCH 30.5 pg 27.0-3 4.0 Not Available [facility] (Lab) [address] [place], [address], 04/04/2025 04:39:51 04/03/2004/03/2025 CBC W/DIF F MCHC 32.8 g/dL 32.0-3 5.5 Not Available [facility] (Lab) [address] [place], [address], 04/04/2025 04:39:51 04/03/20 25 04/03/2025 CBC W/DIF F RDW 13.0 % 11.0-1 5.0 Not Available [facility] (Lab) [address] [place], [address], 04/04/2025 04:39:51 04/03/2004/03/2025 CBC W/DIF F plt 131 10'3/ uL 150-40 0 low Not Available [facility] (Lab) [address] [facility], [place], [address], 04/04/2025 04:39:51 04/03/2004/03/2025 CBC W/DIF F MPV 13.9 fL 8.8-12 .1 high Not Available [facility] (Lab) [address] [facility], [place], [address], 04/04/2025 04:39:51 04/03/2004/03/2025 CBC W/DIF F NRBC's 0.0 % 0.0 Not Available [facility] (Lab) [address] [facility], [place], [address], 04/04/2025 04:39:51 04/03/2004/03/2025 CBC W/DIF F absolute NRBCs 0.0 10'3/ uL no refere nce range establ ished Not Available [facility] (Lab) [address] [facility], [place], [address], 04/04/2025 04:39:51 04/03/2004/03/2025 CBC W/DIF F neutrophils 76.6 % 34.0-7 3.0 high Not Available [facility] (Lab) [address] [facility], [place], [address], 04/04/2025 04:39:51 04/03/2004/03/2025 CBC W/DIF F lymphocytes 14.2 % 15.0-5 0.0 low Not Available [facility] (Lab) [address] [facility], [place], [address], 04/04/2025 04:39:51 04/03/2004/03/2025 CBC W/DIF F monocytes 7.6 % 1.0-15 .0 Not Available [facility] (Lab) [address] [facility], [place], [address], 04/04/2025 04:39:51 04/03/20 25 04/03/2025 CBC W/DIF F eosinophils 0.7 % 0.0-8. 0 Not Available [facility] (Lab) [address] [facility], [place], [address], 04/04/2025 04:39:51 04/03/20 25 04/03/2025 CBC W/DIF F basophils 0.4 % 0.0-2. 0 Not Available [facility] (Lab) [address] [facility], [place], [address], 04/04/2025 04:39:51 04/03/20 25 04/03/2025 CBC W/DIF [...] Available [facility] (Lab) [address] [facility], [place], [address], 04/04/2025 04:39:51 04/03/2004/03/2025 CBC W/DIF F absolute neutrophils 9.9 10'3/ uL 1.5-8. 0 high Not Available [facility] (Lab) [address] [facility], [place], [address], 04/04/2025 04:39:51 04/03/2004/03/2025 CBC W/DIF F absolute lymphocytes 1.8 10'3/ uL 1.0-4. 0 Not Available [facility] (Lab) [address] [facility], [place], [address], 04/04/2025 04:39:51 04/03/20 25 04/03/2025 CBC W/DIF F absolute monocytes 1.0 10'3/ uL 0.2-1. 0 Not Available [facility] (Lab) [address] [facility], [place], [address], 04/04/2025 04:39:51 04/03/2004/03/2025 CBC W/DIF F absolute eosinophils 0.1 10'3/ uL 0.0-0. 6 Not Available [facility] (Lab) [address] [place], [address], 04/04/2025 04:39:51 04/03/2004/03/2025 CBC W/DIF F absolute basophils 0.1 10'3/ uL 0.0-0. 3 Not Available [facility] (Lab) [address] [facility], [place], [address], 04/04/2025 04:39:51 04/03/2004/03/2025 CBC W/DIF F absolute [...] Available [facility] (Lab) [address] [facility], [place], [address], 04/04/2025 04:39:51 05/02/2005/02/2025 CULTU RE: URINE result report SEE RESULT S BELOW Test: Cultu re: Urine Speci men Sourc e: Urine - Clean Catch Speci men Type: Urine Speci men Date: 1502 Resul t Date: 0404 Resul t Statu s: Final resul t Abnor mal: No Resul ting Lab: [facility] [address] [facility] [address] Tel: CULTU RE ----- ----- ----- --- No growt h in 1 day (dete ction level of 10,00 0 colon ies / ml.) Not Available [facility] (Lab) [address], [place], [address], 05/04/2025 05:09:17 05/30/2005/30/2025 CBC W/DIF F WBC 11.9 10'3/ uL 3.5-10 .5 high Not Available [facility] (Lab) [address], [place], [address], 05/31/2025 12:26:07 05/30/20 25 05/30/2025 CBC W/DIF F RBC 3.98 10'6/ uL (based on docume nted legal sex) 3.80-5 .20 Not Available [facility] (Lab) [address], [place], [address], 05/31/2025 12:26:07 05/30/20 25 05/30/2025 CBC W/DIF F HGB 12.4 g/dL (based on docume nted legal sex) 11.6-1 5.4 Not Available [facility] (Lab) [address], [place], [address], 05/31/2025 12:26:07 05/30/20 25 05/30/2025 CBC W/DIF F HCT 36.8 % (based on docume nted legal sex) 34.0-4 5.0 Not Available [facility] (Lab) [address], [place], [address], 05/31/2025 12:26:07 05/30/20 25 05/30/2025 CBC W/DIF F MCV 92.5 fL 80.0-9 9.0 Not Available [facility] (Lab) [address], [place], [address], 05/31/2025 12:26:07 05/30/20 25 05/30/2025 CBC W/DIF F MCH 31.2 pg 27.0-3 4.0 Not Available [facility] (Lab) [address], [place], [address], 05/31/2025 12:26:07 05/30/20 25 05/30/2025 CBC W/DIF F MCHC 33.7 g/dL 32.0-3 5.5 Not Available [facility] (Lab) [address], [place], [address], 05/31/2025 12:26:07 05/30/20 25 05/30/2025 CBC W/DIF F RDW 13.4 % 11.0-1 5.0 Not Available [facility] (Lab) [address], [place], [address], 05/31/2025 12:26:07 05/30/20 25 05/30/2025 CBC W/DIF F plt 113 10'3/ uL 150-40 0 low Not Available [facility] (Lab) [address] [facility], [place], [address], 05/31/2025 12:26:07 05/30/20 25 05/30/2025 CBC W/DIF F MPV 13.8 fL 8.8-12 .1 high Not Available [facility] (Lab) [address], [place], [address], 05/31/2025 12:26:07 05/30/20 25 05/30/2025 CBC W/DIF F NRBC's 0.0 % 0.0 Not Available [facility] (Lab) [address], [place], [address], 05/31/2025 12:26:07 05/30/20 25 05/30/2025 CBC W/DIF F absolute NRBCs 0.0 10'3/ uL no refere nce range establ ished Not Available [facility] (Lab) [address], [place], [address], 05/31/2025 12:26:07 05/30/20 25 05/30/2025 CBC W/DIF F neutrophils 79.4 % 34.0-7 3.0 high Not Available [facility] (Lab) [address] [facility], [place], [address], 05/31/2025 12:26:07 05/30/20 25 05/30/2025 CBC W/DIF F lymphocytes 10.8 % 15.0-5 0.0 low Not Available [facility] (Lab) [address] [facility], [place], [address], 05/31/2025 12:26:07 05/30/20 25 05/30/2025 CBC W/DIF F monocytes 7.7 % 1.0-15 .0 Not Available [facility] (Lab) [address] [facility], [place], [address], 05/31/2025 12:26:07 05/30/20 25 05/30/2025 CBC W/DIF F eosinophils 0.8 % 0.0-8. 0 Not Available [facility] (Lab) [address] [place], [address], 05/31/2025 12:26:07 05/30/20 25 05/30/2025 CBC W/DIF F basophils 0.4 % 0.0-2. 0 Not Available [facility] (Lab) [address] [place], [address], 05/31/2025 12:26:07 05/30/20 25 05/30/2025 CBC W/DIF [...] Available [facility] (Lab) [address] [facility] [place], [address], 05/31/2025 12:26:07 05/30/20 25 05/30/2025 CBC W/DIF F absolute neutrophils 9.5 10'3/ uL 1.5-8. 0 high Not Available [facility] (Lab) [address] [facility], [place], [address], 05/31/2025 12:26:07 05/30/20 25 05/30/2025 CBC W/DIF F absolute lymphocytes 1.3 10'3/ uL 1.0-4. 0 Not Available [facility] (Lab) [address] [facility], [place], [address], 05/31/2025 12:26:07 05/30/20 25 05/30/2025 CBC W/DIF F absolute monocytes 0.9 10'3/ uL 0.2-1. 0 Not Available [facility] (Lab) [address] [facility], [place], [address], 05/31/2025 12:26:07 05/30/20 25 05/30/2025 CBC W/DIF F absolute eosinophils 0.1 10'3/ uL 0.0-0. 6 Not Available [facility] (Lab) [address] [facility], [place], [address], 05/31/2025 12:26:07 05/30/20 25 05/30/2025 CBC W/DIF F absolute basophils 0.1 10'3/ uL 0.0-0. 3 Not Available [facility] (Lab) [address] [facility], [place], [address], 05/31/2025 12:26:07 05/30/20 25 05/30/2025 CBC W/DIF [...] [facility] ([facility] [address] [place], [address], 05/31/2025 12:26:07 05/30/20 25 05/30/2025 HIV 1/2 ANTIG EN/AN TIBOD Y, REFLE X CONFI RMATI ON HIV antigen/anti body Nonrea ctive nonrea ctive HIV-1 antig en and HIV-1 /HIV- 2 antib odies were not detec alfredo. No labor atory evide nce of HIV infec tion. Not Available [facility] (Lab) [address], [place], [address], 05/31/2025 12:26:07 05/30/20 25 05/30/2025 GTT - GESTA REGAN L SCREE N, ACOG OB glucose, 1 hour screen 82 mg/dL 70-135 Not Available [facility] (Lab) [address], [place], [address], 05/31/2025 12:26:08 05/30/20 25 05/30/2025 RPR SCREE N, REFLE X TITER /CONF IRMAT ION RPR qualitative Nonrea ctive nonrea ctive Not Available [facility] (Lab) [address], [place], [address], 05/31/2025 12:26:08 06/30/20 25 06/30/2025 CBC W/DIF F WBC 11.6 10'3/ uL 3.5-10 .5 high Not Available [facility] (Lab) [address], [place], [address], 07/01/2025 02:43:32 06/30/20 25 06/30/2025 CBC W/DIF F RBC 3.97 10'6/ uL (based on docume nted legal sex) 3.80-5 .20 Not Available [facility] (Lab) [address], [place], [address], 07/01/2025 02:43:32 06/30/20 25 06/30/2025 CBC W/DIF F HGB 12.4 g/dL (based on docume nted legal sex) 11.6-1 5.4 Not Available [facility] (Lab) [address], [place], [address], 07/01/2025 02:43:32 06/30/20 25 06/30/2025 CBC W/DIF F HCT 35.3 % (based on docume nted legal sex) 34.0-4 5.0 Not Available [facility] (Lab) [address], [place], [address], 07/01/2025 02:43:32 06/30/20 25 06/30/2025 CBC W/DIF F MCV 88.9 fL 80.0-9 9.0 Not Available [facility] (Lab) [address], [place], [address], 07/01/2025 02:43:32 06/30/20 25 06/30/2025 CBC W/DIF F MCH 31.2 pg 27.0-3 4.0 Not Available [facility] (Lab) [address], [place], [address], 07/01/2025 02:43:32 06/30/20 25 06/30/2025 CBC W/DIF F MCHC 35.1 g/dL 32.0-3 5.5 Not Available [facility] (Lab) [address], [place], [address], 07/01/2025 02:43:32 06/30/20 25 06/30/2025 CBC W/DIF F RDW 13.2 % 11.0-1 5.0 Not Available [facility] (Lab) [address] [place], [place], [address], 07/01/2025 02:43:32 06/30/20 25 06/30/2025 CBC W/DIF F plt 106 10'3/ uL 150-40 0 low Not Available [facility] (Lab) [address] [facility], [place], [address], 07/01/2025 02:43:32 06/30/20 25 06/30/2025 CBC W/DIF F MPV 13.2 fL 8.8-12 .1 high Not Available [facility] (Lab) [address] [facility], [place], [address], 07/01/2025 02:43:32 06/30/20 25 06/30/2025 CBC W/DIF F NRBC's 0.0 % 0.0 Not Available [facility] (Lab) [address] [facility], [place], [address], 07/01/2025 02:43:32 06/30/20 25 06/30/2025 CBC W/DIF F absolute NRBCs 0.0 10'3/ uL no refere nce range establ ished Not Available [facility] (Lab) [address] [facility], [place], [address], 07/01/2025 02:43:32 06/30/20 25 06/30/2025 CBC W/DIF F neutrophils 77.2 % 34.0-7 3.0 high Not Available [facility] (Lab) [address] [facility], [place], [address], 07/01/2025 02:43:32 06/30/20 25 06/30/2025 CBC W/DIF F lymphocytes 13.2 % 15.0-5 0.0 low Not Available [facility] (Lab) [address] [facility], [place], [address], 07/01/2025 02:43:32 06/30/20 25 06/30/2025 CBC W/DIF F monocytes 7.5 % 1.0-15 .0 Not Available [facility] (Lab) [address] [facility], [address], 07/01/2025 02:43:32 06/30/20 25 06/30/2025 CBC W/DIF F eosinophils 0.9 % 0.0-8. 0 Not Available [facility] (Lab) [address] [facility], [place], [address], 07/01/2025 02:43:32 06/30/20 25 06/30/2025 CBC W/DIF F basophils 0.4 % 0.0-2. 0 Not Available [facility] (Lab) [address] [facility], [place], [address], 07/01/2025 02:43:32 06/30/20 25 06/30/2025 CBC W/DIF [...] Available [facility] (Lab) [address] [facility], [place], [address], 07/01/2025 02:43:32 06/30/20 25 06/30/2025 CBC W/DIF F absolute neutrophils 8.9 10'3/ uL 1.5-8. 0 high Not Available [facility] (Lab) [address] [facility], [place], [address], 07/01/2025 02:43:32 06/30/20 25 06/30/2025 CBC W/DIF F absolute lymphocytes 1.5 10'3/ uL 1.0-4. 0 Not Available [facility] (Lab) [address] [facility], [place], [address], 07/01/2025 02:43:32 06/30/20 25 06/30/2025 CBC W/DIF F absolute monocytes 0.9 10'3/ uL 0.2-1. 0 Not Available [facility] (Lab) [address] [facility], [place], [address], 07/01/2025 02:43:32 06/30/20 25 06/30/2025 CBC W/DIF F absolute eosinophils 0.1 10'3/ uL 0.0-0. 6 Not Available [facility] (Lab) [address] [facility], [place], [address], 07/01/2025 02:43:32 06/30/20 25 06/30/2025 CBC W/DIF F absolute basophils 0.1 10'3/ uL 0.0-0. 3 Not Available [facility] (Lab) [address] [facility], [place], [address], 07/01/2025 02:43:32 06/30/20 25 06/30/2025 CBC W/DIF [...] Available [facility] (Lab) [address] [facility], [place], [address], 07/01/2025 02:43:32 02/11/20 25 02/10/2025 US, obste tric, nucha l trans lucen cy No observ ation record ed. khari [facility] [address], [place], [address], 02/10/2025 18:38:42 02/11/20 25 02/10/2025 US, obste tric, follo w-up No observ ation record ed. [email or web address] [facility] [address], [place], [address], 02/13/2025 09:20:03 04/03/20 25 04/03/2025 US, obste tric, 2nd or 3rd trime ster No observ ation record ed. [email or web address] [facility] [address], [place], [address], 04/03/2025 18:43:20 04/03/20 25 04/03/2025 US, obste tric, 2nd or 3rd trime ster No observ ation record ed. [facility] [address], [place], [address], 04/05/2025 17:47:52 04/21/20 25 04/21/2025 non-s tress test No observ ation record ed. [address], [address], 04/24/2025 12:03:28 05/02/20 25 05/02/2025 US, obste tric, follo w-up No observ ation record ed. kyck [place] [address], [place], [address], 05/02/2025 12:58:26 05/02/20 25 05/02/2025 US, obste tric, follo w-up No observ ation record ed. ROBERT [facility] [address], [place], [address], 05/03/2025 18:13:01 05/29/20 25 05/29/2025 non-s tress test No observ ation record ed. [address], [address], 05/31/2025 15:39:22 06/20/20 25 06/20/2025 imagi ng/di agnos tic resul t No observ ation record ed. [facility] [address] [place], [address], 06/20/2025 13:33:45 06/20/2006/20/2025 US, obste tric, follo w-up No observ ation record ed. [email or web address] [facility] [address] [place], [address], 06/27/2025 17:32:46 07/03/2007/03/2025 non-s tress test No observ ation record ed. [address], [address], 07/19/2025 15:34:42 07/03/2007/03/2025 imagi ng/di agnos tic resul t No observ ation record ed. [address], [address], 07/03/2025 11:55:37 07/26/20 25 07/26/2025 imagi ng/di agnos tic resul t No observ ation record ed. [address], [address], 07/26/2025 18:39:01 07/26/20 25 07/26/2025 imagi ng/di agnos tic resul t No observ ation record ed. [facility] [address] [place], [address], 07/26/2025 18:39:01 07/26/20 25 07/26/2025 imagi ng/di agnos tic resul t No observ ation record ed. [facility] [address] [place], [address], 07/26/2025 18:39:01 08/14/20 25 08/14/2025 imagi ng/di agnos tic resul t No observ ation record ed. [facility] [address] [place], [address], 08/14/2025 09:43:44 08/14/20 25 08/14/2025 imagi ng/maryc villela tic resul t No observ ation record ed. ROBERT [facility] [address] [place], [address], 08/14/2025 14:53:30 Result Notes None recorded. Problems Name Problem SNOMED Code Status Onset Date Resolution Date Notes Provider Name and Address Organization Details Recorded Time Anxiety 30208180 Active 2024 Kristen Ruffin [facility] 11:01:06 15860411 Active 2024 Aleah Chioma [facility] 11:57:32 Platelet count below reference range 170435638 Active 2024 Referral faxed to [facility] 06/01 scheduled 06/20 0900 Level II us and consult Zoey Tarango [facility] 11:50:53 Problem Notes None recorded. Procedures Surgical History Date Name Laterality Status Provider Name and Address Organization Details Recorded Time 5 Date of Last Pap Smear completed Kristen Ruffin [facility] 01/13/2025 11:01:13 7 operative procedure on wrist completed Aleahsergio Bedolla [facility] 02/10/2025 11:57:07 Imaging Results None recorded. [...] Updated DateTime 06/30/2025 170.18 cm 27.9 kg/m2 87666.44 g 112/78 mm[Hg] Isabel Romero [facility] 06/30/2025 12:00:49 Social History Question Answer Notes LastModified by Organizat ion Details LastModified Time Tobacco Smoking Status Never Smoker Kristen sánchez, [facility] 01/13/2025 11:05:22 If You Are , What Was Your Level Of Alcohol Consumption Prior To ? Occasional Information not available 01/13/2025 Are You Blind Or Do You Have Difficulty Seeing? No [email or web address] Information n ot available 01/13/2025 What Is Your Level Of Caffeine Consumption? Occasional [email or web address] Information not available 01/13/2025 In The 14 Days Before Symptom Onset, Have You Had Close Contact With A Laboratory-confirm ed COVID-19 While That Case Was Ill? No Information n ot available 01/13/2025 In The 14 Days Before Symptom Onset, Have You Had Close Contact With A Person Who Is Under Investigation For COVID-19 While That Person Was Ill? No [email or web address] Information not available 01/13/2025 Have You Been To An Area Known To Be High Risk For COVID-19? No [email or web address] Information not available 01/13/2025 Are You Deaf Or Do You Have Serious Difficulty Hearing? No [email or web address] Information not available 01/13/2025 Do You Have Smoke And Carbon Monoxide Detectors In Your Home? Yes [email or web address] Information not available 01/13/2025 Do You Use Sunscreen Routinely? Yes [email or web address] Information not available 01/13/2025 Has Tobacco Cessation Counseling Been Provided? No [email or web address] Information not available 01/13/2025 Have You Used IV Drugs? No [email or web address] Information not available 01/13/2025 Do You Have Difficulty Walking Or Climbing Stairs? No [email or web address] Information not available 01/13/2025 Sex: Unknown Functional Status Question Answer Note LastModified by Organizat ion Details LastModified Time Do you use any illicit or recreational drugs? No [email or web address] Information not available 01/13/2025 Do you or have you ever used any other forms of tobacco or nicotine? Yes [email or web address] Information not available 01/13/2025 What is your level of alcohol consumption? None [email or web address] Information not available 01/13/2025 Are you able to walk independently without assistance or assistive devices? YESWOREST [email or web address] Information not available 01/13/2025 Are you able to care for yourself independently? Yes [email or web address] Information not available 01/13/2025 Do you have difficulty dressing, bathing, grooming, or toileting? No [email or web address] Information not available 01/13/2025 Do you or have you ever used e-cigarettes or vape? Former user of electronic cigarettes [email or web address] Information not available 01/13/2025 Mental Status None recorded. Family History Relationship Description Onset Age of this Age Resolved Age Notes LastModified by Organization Details LastModified Time Unspecified Relation Family history unknown Not available 2024 13:48:03 Paternal Grandfather Malignant neoplasm of prostate [email or web address] Not available 07/31 15:39:21 Maternal Grandfather Malignant neoplasm of lung [email or web address] Not available 01/13 11:03:40 Maternal Grandmother Malignant neoplasm of pancreas [email or web address] Not available 07/31 15:39:21 Maternal Aunt Malignant neoplasm of breast [email or web address] Not available 2024 13:48:03 Father Leukemia [email or web address] Not availa ble 08/10/2025 15:39:21 Mother Diabetes mellitus [email or web address] Not available 01/13 11:04:57 Medical History Condition Response Allergies (Food, seasonal, environmental ) N Other N Drug/Latex Allergies/Reactions N Blood Transfusion N Breast Cancer N Dermatologic Disorders N Lung Disease N Defects or Inherited Disease N Breast Problem N Gestational Diabetes N Hematologic disorders N Anesthesia Complications N History of STI N Deep Vein Thrombosis N Polycystic ovary syndrome N Anxiety Disorder Y Autoimmune disease N Arthritis N Polyps N Infertility N Acid Reflux (GERD) N History of abnormal pap N Cancer N Varicosities N Stroke N Neurologic/Epilepsy N Endometriosis N High Cholesterol [...] ICD10 Code Diagnosis IMO Codes Diagnosis Note [id number] JOLIE TOMLINSON MD [place] [address],[place] [address] 05/30/2025 09:40:10 05/30/2025 10:26:07 Thrombocytopenic disorder 652219161 D69.6 07278 - plt 125>131- repeat today Gestation period, 28 weeks 74014745 Z3A.28 [id number] JOLIE TOMLINSON MD [place] [address],[place] [address] 06/13/2025 15:20:18 06/13/2025 16:44:44 Platelet count below reference range 478998949 D69.6 26480520 - plt 125>131>11 3- MFM consult Gestation period, 30 weeks 54694256 Z3A.30 [id number] [id number] JOLIE TOMLINSON MD [place] [address],[place] [address] 06/30/2025 11:40:05 06/30/2025 12:44:02 Platelet count below reference range 581047020 D69.6 57784191 - plt 125>131>11 3- MFM consult Gestation period, 32 weeks 4818902 Z3A.32 8984793 - continue [facility] Concerns Section Related Observation LastModified by Organization Detai ls LastModified Time None Recorded Concern Status LastModified by Organization Details LastModified Time None Recorded Payers Encounter Date Sequence Insurance Name Policy Number Policy Marie Covered Member ID Marie Member ID Guarantor Name 06/30/2025 2 [place] [employer] [place] [employer] Gabby Jose [id number] Kya Angulo 06/30/2025 1 [place] [id number] Kya Angulo [id number] Kya Angulo Notes Date Note Type Note Provider Name and Address Organization Details Recorded Time 06/30/2025 text/html Generic HPI TemplateReported by Patient JOLIE TOMLINSON MD [address], [place], [address], [facility] 06/30/2025 12:29:02 OBGyn Episode Ob Episode Information Episode Created Date Number of Fetuses Patient Bloodtype Patient rh Status Prepregnancy Weight lbs Domestic Partner Domestic Partner Phone Father Name Loom Stop Checker Status 02/11/20 25 1 O Positive 150 Jovany Meierk OPEN Fetus Data First Name Last Name Admitted to NICU Weight (g) Sex Living Outcome Pediatric Complications Fetus ID Race Codes Race Delivery Type [id number] Problems Problem Notes RSV vaccine received 07/04/25 . Problem Name Start Date End Date Resolution Snomed Code Not e Platelet count below reference range 06/01/2025 [id number] Referral fax ed to [facility] 06/01 scheduled 06/20 0900 [...] Weight in lbs Pre/Post Dialysis Refused Weight 153.297447607774 BP Diastolic BP Location Tested BP Systolic BP Type 77 L arm 122 sitting Fetus Heart Rate Present A Present Fetus Movement Comments Patient presents to [facility] care. otherwise uncomplicated. No bleeding or [...] Weight in lbs Pre/Post Dialysis Refused Weight 156.687058929833 BP Diastolic BP Location Tested BP Systolic [...] Weight in lbs Pre/Post Dialysis Refused Weight 160.883302641020 BP Diastolic BP Location Tested BP Systolic [...] Weight in lbs Pre/Post Dialysis Refused Weight 165.790370652770 BP Diastolic BP Location Tested BP Systolic [...] Type Weight in lbs Pre/Post Dialysis Refused 176.414817321910 BP Diastolic BP Location Tested BP Systolic BP Type 78 L arm 118 sitting Fetus Heart Rate Present A 150 Fetus Movement A Yes Comments Had an episode of DFM yester day, went to [employer] and had negative workup. No cramping or bleeding. GCT and labs today, will draw CBC as well. Discussed Tdap, RSV, and flu vaccines. RTC 2 weeks. Flowsheet Date 06/13/2025 Kirkland Score Blood Edema Fundus Height Fundus Units Glucose Ketones Leukocytes Nitrite Labor Signs Protein Cervic Dilation Cervic Effacement Cervic Station Type Weight in lbs Pre/Post Dialysis Refused 181.956492386899 BP Diastolic BP Location Tested BP Systolic [...] Weight in lbs Pre/Post Dialysis Refused Weight 178.774758151525 BP Diastolic BP Location Tested BP Systolic BP Type 78 L arm 112 sitting Fetus Heart Rate Present A 140 Fetus Movement A Yes Comments Good movement. No cram ping or bleeding. Saw MFM, recommend platelet counts every visit. 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 EFW 92%, AC 93%; discussed 39 week induction, plan for 12/15 PM. Preadmission scheduled. RSV vaccine discussed. RTC 2 weeks. Flowsheet Date 07/12/2025 Kirkland Score Blood Edema Fundus Height Fundus Units Glucose Ketones Leukocytes Nitrite Labor Signs Protein Cervic Dilation Cervic Effacement Cervic Station Type Weight in lbs Pre/Post Dialysis Refused Weight 185.756902592649 BP Diastolic BP Location Tested BP Systolic [...] Weight in lbs Pre/Post Dialysis Refused Weight 186.161552022952 BP Diastolic BP Location Tested BP Systolic [...] Weight in lbs Pre/Post Dialysis Refused Weight 187.608629093181 BP Diastolic BP Location Tested BP Systolic [...] Weight in lbs Pre/Post Dialysis Refused Weight 189.920122115977 BP Diastolic BP Location Tested BP Systolic [...]
--- OUTSIDE RECORDS SUMMARY | 2025-08-14 17:57 | XMS_ITS | Continuity of Care Document ---
Author Organization [facility] [place] Address [address] [place] [address] Care Team Providers Care Middleware Engineer Name Role Phone YESSISHERYL Primary Care Provider [phone] Assessment No assessment recorded. Plan of Treatment Reminders Order Date Submit Date Provider Last Modified By Organization Details Last Modified Time Details Appointments INDUCTION 2024 04:00P Cosmo TOMLINSON MD Not available Not available Not available Lab vitamin B12 + folate, serum or blood 2024 025 [facility] (Lab), [address] , [place], [address], 08/08/2025 19:28:08 intrinsic factor Ab, serum 2024 025 [facility] (Lab), [address] [place], [address], 08/08/2025 19:28:08 unlisted lab - parietal cell antibodie s, IgG, serum 2024 025 [facility] (Lab), [address] [place], [address], 08/08/2025 19:28:09 CBC 2024 025 [facility] (Lab), [address], [place], [address], 08/08/2025 19:28:07 iron + TIBC + ferritin, serum 2024 025 [facility] (Lab), [address], [place], [address], 08/08/2025 19:28:08 Referral None recorded. Procedures None recorded. Surgeries [...] [facility] [address], [place], [address], 02/16/2025 19:59:32 02/17/20 25 02/16/2025 [UNIT Y] ANEUP LOIDY NIPT 22Q11.2 microdeletio n LOW RISK <1 in 10,000 normal Not Available [facility] [address], [place], [address], 02/16/2025 19:59:32 02/17/20 25 02/16/2025 [UNIT Y] ANEUP LOIDY NIPT sex chromosome aneuploidy NOT DETECT ED normal Not Available [facility] [address], [place], [address], 02/16/2025 19:59:32 02/17/20 25 02/16/2025 [UNIT Y] ANEUP LOIDY NIPT monosomy X LOW RISK <1 in 10,000 normal Not Available [facility] [address], [place], [address], 02/16/2025 19:59:32 02/17/20 25 02/16/2025 [UNIT Y] ANEUP LOIDY NIPT trisomy 13 LOW RISK <1 in 10,000 normal Not Available [facility] [address], [place], [address], 02/16/2025 19:59:32 02/17/20 25 02/16/2025 [UNIT Y] ANEUP LOIDY NIPT trisomy 18 LOW RISK <1 in 10,000 normal Not Available [facility] [address], [place], [address], 02/16/2025 19:59:32 02/17/20 25 02/16/2025 [UNIT Y] ANEUP LOIDY NIPT trisomy 21 LOW RISK <1 in 10,000 normal Not Available [facility] [address], [place], [address], 02/16/2025 19:59:32 02/17/20 25 02/16/2025 [UNIT Y] ANEUP LOIDY NIPT sex MALE normal Not Available [facility] [address], [place], [address], 02/16/2025 19:59:32 02/17/20 25 02/16/2025 [UNIT Y] ANEUP LOIDY NIPT gestation SINGLE TON normal Not Available [facility] [address], [place], [address], 02/16/2025 19:59:32 02/17/20 25 02/16/2025 [UNIT Y] ANEUP LOIDY NIPT for detailed report, see pdf See PDF normal Not Available [facility] [address], [place], [address], 02/16/2025 19:59:32 02/22/20 25 02/21/2025 [UNIT Y] FLETCHER Rose sickle cell disease/beta -thalassemia /hemoglobino pathies carrier screen NEGATI VE normal Not Available [facility] [address], [place], [address], 02/21/2025 14:09:41 02/22/20 25 02/21/2025 [UNIT Y] FLETCHER Rose alpha-thalas semia carrier screen NEGATI VE normal Not Available [facility] [address], [place], [address], 02/21/2025 14:09:41 02/22/20 25 02/21/2025 [UNIT Y] FLETCHER Rose cystic fibrosis carrier screen NEGATI VE normal Not Available [facility] [address], [place], [address], 02/21/2025 14:09:41 02/22/20 25 02/21/2025 [UNIT Y] FLETCHER Rose spinal muscular atrophy carrier screen NEGATI VE 2 SMN1 copies , SNP not presen t normal Not Available [facility] [address], [place], [address], 02/21/2025 14:09:41 02/22/20 25 02/21/2025 [UNIT Y] FLETCHER SUZY Rose for detailed report, see pdf See PDF normal Not Available [facility] [address], [place], [address], 02/21/2025 14:09:41 02/11/20 25 02/10/2025 CT/GC AND TRICH OMONA S VAGIN KARLO (RRNA ), URINE chlamydia trachomatis, PCR Negati ve negati ve Not Available [facility] (Lab) [address], [place], [address], 02/11/2025 12:05:33 02/11/20 25 02/10/2025 CT/GC AND TRICH OMONA S VAGIN KARLO (RRNA ), URINE neisseria gonorrhoeae, PCR Negati ve negati ve Not Available [facility] (Lab) [address], [place], [address], 02/11/2025 12:05:33 02/11/20 25 02/10/2025 CT/GC AND TRICH OMONA S VAGIN KARLO (RRNA ), URINE trichomonas vaginalis ribosomal RNA (rrna) Negati ve negati ve Not Available [facility] (Lab) [address], [place], [address], 02/11/2025 12:05:33 02/11/2002/10/2025 CBC W/DIF F WBC 8.7 10'3/ uL 3.5-10 .5 Not Available [facility] (Lab) [address] [facility], [place], [address], 02/11/2025 13:44:37 02/11/20 25 02/10/2025 CBC W/DIF F RBC 4.55 10'6/ uL (based on docume nted legal sex) 3.80-5 .20 Not Available [facility] (Lab) [address] [facility], [place], [address], 02/11/2025 13:44:37 02/11/20 25 02/10/2025 CBC W/DIF F HGB 13.7 g/dL (based on docume nted legal sex) 11.6-1 5.4 Not Available [facility] (Lab) [address] [facility], [place], [address], 02/11/2025 13:44:37 02/11/20 25 02/10/2025 CBC W/DIF F HCT 40.8 % (based on docume nted legal sex) 34.0-4 5.0 Not Available [facility] (Lab) [address] [facility], [place], [address], 02/11/2025 13:44:37 02/11/2002/10/2025 CBC W/DIF F MCV 89.7 fL 80.0-9 9.0 Not Available [facility] (Lab) [address] [facility], [place], [address], 02/11/2025 13:44:37 02/11/20 25 02/10/2025 CBC W/DIF F MCH 30.1 pg 27.0-3 4.0 Not Available [facility] (Lab) [address] [facility], [place], [address], 02/11/2025 13:44:37 02/11/20 25 02/10/2025 CBC W/DIF F MCHC 33.6 g/dL 32.0-3 5.5 Not Available [facility] (Lab) [address] [facility], [place], [address], 02/11/2025 13:44:37 02/11/2002/10/2025 CBC W/DIF F RDW 12.8 % 11.0-1 5.0 Not Available [facility] (Lab) [address] [facility], [place], [address], 02/11/2025 13:44:37 02/11/20 25 02/10/2025 CBC W/DIF F plt 125 10'3/ uL 150-40 0 low Not Available [facility] (Lab) [address] [facility], [place], [address], 02/11/2025 13:44:37 02/11/20 25 02/10/2025 CBC W/DIF F MPV 13.5 fL 8.8-12 .1 high Not Available [facility] (Lab) [address] [facility], [place], [address], 02/11/2025 13:44:37 02/11/20 25 02/10/2025 CBC W/DIF F NRBC's 0.0 % 0.0 Not Available [facility] (Lab) [address] [facility], [place], [address], 02/11/2025 13:44:37 02/11/2002/10/2025 CBC W/DIF F absolute NRBCs 0.0 10'3/ uL no refere nce range establ ished Not Available [facility] (Lab) [address] [facility], [place], [address], 02/11/2025 13:44:37 02/11/20 25 02/10/2025 CBC W/DIF F neutrophils 76.5 % 34.0-7 3.0 high Not Available [facility] (Lab) [address] [place], [address], 02/11/2025 13:44:37 02/11/20 25 02/10/2025 CBC W/DIF F lymphocytes 14.4 % 15.0-5 0.0 low Not Available [facility] (Lab) [address] [facility], [place], [address], 02/11/2025 13:44:37 02/11/20 25 02/10/2025 CBC W/DIF F monocytes 8.3 % 1.0-15 .0 Not Available [facility] (Lab) [address] [facility], [place], [address], 02/11/2025 13:44:37 02/11/20 25 02/10/2025 CBC W/DIF F eosinophils 0.3 % 0.0-8. 0 Not Available [facility] (Lab) [address] [facility], [place], [address], 02/11/2025 13:44:37 02/11/20 25 02/10/2025 CBC W/DIF F basophils 0.3 % 0.0-2. 0 Not Available [facility] (Lab) [address] [facility], [place], [address], 02/11/2025 13:44:37 02/11/20 25 02/10/2025 CBC W/DIF [...] separ ately if prese nt. Not Available [facility] (Lab) [address] [facility], [place], [address], 02/11/2025 13:44:37 02/11/20 25 02/10/2025 CBC W/DIF F absolute neutrophils 6.6 10'3/ uL 1.5-8. 0 Not Available [facility] (Lab) [address] [facility], [place], [address], 02/11/2025 13:44:37 02/11/20 25 02/10/2025 CBC W/DIF F absolute lymphocytes 1.3 10'3/ uL 1.0-4. 0 Not Available [facility] (Lab) [address], [place], [address], 02/11/2025 13:44:37 02/11/20 25 02/10/2025 CBC W/DIF F absolute monocytes 0.7 10'3/ uL 0.2-1. 0 Not Available [facility] (Lab) [address], [place], [address], 02/11/2025 13:44:37 02/11/20 25 02/10/2025 CBC W/DIF F absolute eosinophils 0.0 10'3/ uL 0.0-0. 6 Not Available [facility] (Lab) [address], [place], [address], 02/11/2025 13:44:37 02/11/20 25 02/10/2025 CBC W/DIF F absolute basophils 0.0 10'3/ uL 0.0-0. 3 Not Available [facility] (Lab) [address], [place], [address], 02/11/2025 13:44:37 02/11/20 25 02/10/2025 CBC W/DIF [...] calzada book. nm.or g/gen derx Not Available [facility] (Lab) [address], [place], [address], 02/11/2025 13:44:37 02/11/2002/10/2025 HIV 1/2 ANTIG EN/AN TIBOD Y, REFLE X CONFI RMATI ON HIV antigen/anti body Nonrea ctive nonrea ctive HIV-1 antig en and HIV-1 /HIV- 2 antib odies were not detec alfredo. No labor atory evide nce of HIV infec tion. Not Available [facility] (Lab) [address], [place], [address], 02/11/2025 13:44:38 02/11/2002/10/2025 HEPAT ITIS B SURFA CE ANTIG EN hepatitis B surface antigen Non-re active non-re active This assay was perfo rmed using [employer] ratio n reage nts and test kits. Value s obtai evelyn with other assay metho ds or kits canno t be used inter collins eably . Not Available [facility] (Lab) [address], [place], [address], 02/11/2025 13:44:38 02/11/20 25 02/10/2025 HEPAT ITIS C ANTIB TIM SCREE N, REFLE X TO CONFI RMATI ON hepatitis C antibody Non-re active non-re active Antib odies to HCV Not Detec alfredo, does not exclu de the possi bilit y of expos ure to HCV. Not Available [facility] (Lab) [address], [place], [address], 02/11/2025 13:44:39 02/11/2002/10/2025 RUBEL LA IGG ANTIB TIM, QUANT rubella antibodies, IgG Reacti ve reacti ve Not Available [facility] (Lab) [address], [place], [address], 02/11/2025 13:44:39 02/11/20 25 02/10/2025 RUBEL LA IGG ANTIB TIM, QUANT rubella antibodies, IgG quant 47.1 IU/mL >=10 Non-r eacti ve (Non- Immun e) <10 IU/mL React kvng (Immu ne) > or = 10 IU/mL Not Available [facility] (Lab) [address] [facility], [place], [address], 02/11/2025 13:44:39 02/11/20 25 02/10/2025 TYPE/ RH/SC REEN ABO/Rh type O POS Not Available [facility] (Lab) [address] [facility], [place], [address], 02/11/2025 13:44:40 02/11/20 25 02/10/2025 TYPE/ RH/SC REEN antibody screen NEG Not Available [facility] (Lab) [address] [facility], [place], [address], 02/11/2025 13:44:40 02/11/20 25 02/10/2025 TYPE/ RH/SC REEN exp date 2024 23:59 Not Available [facility] (Lab) [address] [facility], [place], [address], 02/11/2025 13:44:40 02/11/20 25 02/10/2025 HEMOG LOBIN [...] >8.0% Actio n sugge sted Not Available [facility] (Lab) [address], [place], [address], 02/11/2025 13:44:40 02/11/20 25 02/10/2025 RPR SCREE N, REFLE X TITER /CONF IRMAT ION RPR qualitative Nonrea ctive nonrea ctive Not Available [facility] (Lab) [address], [place], [address], 02/11/2025 13:44:41 02/11/20 25 02/10/2025 drug scree n, urine Amphetamines : negati ve Not Available [facility] [address], [place], [address], 02/10/2025 12:55:20 02/11/20 25 02/10/2025 drug scree n, urine Cannabinoids : negati ve Not Available [facility] [address], [place], [address], 02/10/2025 12:55:20 02/11/20 25 02/10/2025 drug scree n, urine Cocaine: negati ve Not Available [address], [place], [address], 02/10/2025 12:55:20 02/11/20 25 02/10/2025 drug scree n, urine Opiates: negati ve Not Available [address], [place], [address], 02/10/2025 12:55:20 02/11/20 25 02/10/2025 drug scree n, urine Barbiturates : negati ve Not Available [facility] [address], [place], [address], 02/10/2025 12:55:20 02/11/20 25 02/10/2025 drug scree n, urine Benzodiazepi john: negati ve Not Available [facility] [address], [place], [address], 02/10/2025 12:55:20 03/10/20 25 03/10/2025 CULTU RE: URINE result report SEE RESULT S BELOW Test: Cultu re: Urine Speci men Sourc e: Urine Voide d Speci men Type: Urine Speci men Date: 2024 0938 Resul t Date: 2024 2212 Resul t Statu s: Final resul t Abnor mal: No Resul ting Lab: [facility] [address] [facility] [address] Tel: CULTU RE ----- ----- ----- --- No growt h in 1 day (dete ction level of 10,00 0 colon ies / ml.) Not Available [facility] (Lab) [address] [facility], [place], [address], 03/11/2025 23:15:50 04/03/2004/03/2025 CBC W/DIF F WBC 12.9 10'3/ uL 3.5-10 .5 high Not Available [facility] (Lab) [address] [facility], [place], [address], 04/04/2025 04:39:51 04/03/2004/03/2025 CBC W/DIF F RBC 4.33 10'6/ uL (based on docume nted legal sex) 3.80-5 .20 Not Available [facility] (Lab) [address] [facility], [place], [address], 04/04/2025 04:39:51 04/03/2004/03/2025 CBC W/DIF F HGB 13.2 g/dL (based on docume nted legal sex) 11.6-1 5.4 Not Available [facility] (Lab) [address] [place], [address], 04/04/2025 04:39:51 04/03/2004/03/2025 CBC W/DIF F HCT 40.2 % (based on docume nted legal sex) 34.0-4 5.0 Not Available [facility] (Lab) [address] [place], [address], 04/04/2025 04:39:51 04/03/2004/03/2025 CBC W/DIF F MCV 92.8 fL 80.0-9 9.0 Not Available [facility] (Lab) [address], [place], [address], 04/04/2025 04:39:51 04/03/2004/03/2025 CBC W/DIF F MCH 30.5 pg 27.0-3 4.0 Not Available [facility] (Lab) [address], [place], [address], 04/04/2025 04:39:51 04/03/2004/03/2025 CBC W/DIF F MCHC 32.8 g/dL 32.0-3 5.5 Not Available [facility] (Lab) [address], [place], [address], 04/04/2025 04:39:51 04/03/2004/03/2025 CBC W/DIF F RDW 13.0 % 11.0-1 5.0 Not Available [facility] (Lab) [address], [place], [address], 04/04/2025 04:39:51 04/03/2004/03/2025 CBC W/DIF F plt 131 10'3/ uL 150-40 0 low Not Available [facility] (Lab) [address], [place], [address], 04/04/2025 04:39:51 04/03/2004/03/2025 CBC W/DIF F MPV 13.9 fL 8.8-12 .1 high Not Available [facility] (Lab) [address], [place], [address], 04/04/2025 04:39:51 04/03/2004/03/2025 CBC W/DIF F NRBC's 0.0 % 0.0 Not Available [facility] (Lab) [address] [place], [address], 04/04/2025 04:39:51 04/03/2004/03/2025 CBC W/DIF F absolute NRBCs 0.0 10'3/ uL no refere nce range establ ished Not Available [facility] (Lab) [address] [facility], [place], [address], 04/04/2025 04:39:51 04/03/2004/03/2025 CBC W/DIF F neutrophils 76.6 % 34.0-7 3.0 high Not Available [facility] (Lab) [address] [facility], [place], [address], 04/04/2025 04:39:51 04/03/2004/03/2025 CBC W/DIF F lymphocytes 14.2 % 15.0-5 0.0 low Not Available [facility] (Lab) [address] [facility], [place], [address], 04/04/2025 04:39:51 04/03/2004/03/2025 CBC W/DIF F monocytes 7.6 % 1.0-15 .0 Not Available [facility] (Lab) [address] [facility], [place], [address], 04/04/2025 04:39:51 04/03/2004/03/2025 CBC W/DIF F eosinophils 0.7 % 0.0-8. 0 Not Available [facility] (Lab) [address] [place], [address], 04/04/2025 04:39:51 04/03/2004/03/2025 CBC W/DIF F basophils 0.4 % 0.0-2. 0 Not Available [facility] (Lab) [address] [place], [address], 04/04/2025 04:39:51 04/03/2004/03/2025 CBC W/DIF F immature granulocytes 0.5 % no define d refere nce range Immat ure Granu locyt es (IG) repre sents autom ated enume ratio n of Metam yeloc ytes, Myelo cytes and Promy elocy umair when IG is < 5%. Blast s are not inclu ded in IG and repor alfredo separ ately if prese nt. Not Available [facility] (Lab) [address] [facility], [place], [address], 04/04/2025 04:39:51 04/03/2004/03/2025 CBC W/DIF F absolute neutrophils 9.9 10'3/ uL 1.5-8. 0 high Not Available [facility] (Lab) [address] [facility], [place], [address], 04/04/2025 04:39:51 04/03/2004/03/2025 CBC W/DIF F absolute lymphocytes 1.8 10'3/ uL 1.0-4. 0 Not Available [facility] (Lab) [address] [facility], [place], [address], 04/04/2025 04:39:51 04/03/20 25 04/03/2025 CBC W/DIF F absolute monocytes 1.0 10'3/ uL 0.2-1. 0 Not Available [facility] (Lab) [address] [facility], [place], [address], 04/04/2025 04:39:51 04/03/20 25 04/03/2025 CBC W/DIF F absolute eosinophils 0.1 10'3/ uL 0.0-0. 6 Not Available [facility] (Lab) [address] [facility], [place], [address], 04/04/2025 04:39:51 04/03/20 25 04/03/2025 CBC W/DIF F absolute basophils 0.1 10'3/ uL 0.0-0. 3 Not Available [facility] (Lab) [address] [facility], [place], [address], 04/04/2025 04:39:51 04/03/20 25 04/03/2025 CBC W/DIF F absolute immature granulocytes 0.1 [...] calzada book. nm.or g/gen derx Not Available [facility] (Lab) [address] [place], [address], 04/04/2025 04:39:51 05/02/2005/02/2025 CULTU RE: URINE result report SEE RESULT S BELOW Test: Cultu re: Urine Speci men Sourc e: Urine - Clean Catch Speci men Type: Urine Speci men Date: 1502 Resul t Date: 0404 Resul t Statu s: Final resul t Abnor mal: No Resul ting Lab: [facility] [address] [facility] [address] Tel: CULTU RE ----- ----- ----- --- No growt h in 1 day (dete ction level of 10,00 0 colon ies / ml.) Not Available [facility] (Lab) [address] [place], [address], 05/04/2025 05:09:17 05/30/2005/30/2025 CBC W/DIF F WBC 11.9 10'3/ uL 3.5-10 .5 high Not Available [facility] (Lab) [address] [facility], [place], [address], 05/31/2025 12:26:07 05/30/2005/30/2025 CBC W/DIF F RBC 3.98 10'6/ uL (based on docume nted legal sex) 3.80-5 .20 Not Available [facility] (Lab) [address] [place], [address], 05/31/2025 12:26:07 05/30/20 25 05/30/2025 CBC W/DIF F HGB 12.4 g/dL (based on docume nted legal sex) 11.6-1 5.4 Not Available [facility] (Lab) [address], [place], [address], 05/31/2025 12:26:07 05/30/20 25 05/30/2025 CBC W/DIF F HCT 36.8 % (based on docume nted legal sex) 34.0-4 5.0 Not Available [facility] (Lab) [address], [place], [address], 05/31/2025 12:26:07 05/30/20 25 05/30/2025 CBC W/DIF F MCV 92.5 fL 80.0-9 9.0 Not Available [facility] (Lab) [address], [place], [address], 05/31/2025 12:26:07 05/30/20 25 05/30/2025 CBC W/DIF F MCH 31.2 pg 27.0-3 4.0 Not Available [facility] (Lab) [address], [place], [address], 05/31/2025 12:26:07 05/30/20 25 05/30/2025 CBC W/DIF F MCHC 33.7 g/dL 32.0-3 5.5 Not Available [facility] (Lab) [address], [place], [address], 05/31/2025 12:26:07 05/30/20 25 05/30/2025 CBC W/DIF F RDW 13.4 % 11.0-1 5.0 Not Available [facility] (Lab) [address], [place], [address], 05/31/2025 12:26:07 05/30/20 25 05/30/2025 CBC W/DIF F plt 113 10'3/ uL 150-40 0 low Not Available [facility] (Lab) [address] [facility], [place], [address], 05/31/2025 12:26:07 05/30/20 25 05/30/2025 CBC W/DIF F MPV 13.8 fL 8.8-12 .1 high Not Available [facility] (Lab) [address] [facility], [place], [address], 05/31/2025 12:26:07 05/30/20 25 05/30/2025 CBC W/DIF F NRBC's 0.0 % 0.0 Not Available [facility] (Lab) [address] [facility], [place], [address], 05/31/2025 12:26:07 05/30/20 25 05/30/2025 CBC W/DIF F absolute NRBCs 0.0 10'3/ uL no refere nce range establ ished Not Available [facility] (Lab) [address] [facility], [place], [address], 05/31/2025 12:26:07 05/30/20 25 05/30/2025 CBC W/DIF F neutrophils 79.4 % 34.0-7 3.0 high Not Available [facility] (Lab) [address] [facility], [place], [address], 05/31/2025 12:26:07 05/30/20 25 05/30/2025 CBC W/DIF F lymphocytes 10.8 % 15.0-5 0.0 low Not Available [facility] (Lab) [address] [facility], [place], [address], 05/31/2025 12:26:07 05/30/20 25 05/30/2025 CBC W/DIF F monocytes 7.7 % 1.0-15 .0 Not Available [facility] (Lab) [address] [facility], [place], [address], 05/31/2025 12:26:07 05/30/20 25 05/30/2025 CBC W/DIF F eosinophils 0.8 % 0.0-8. 0 Not Available [facility] (Lab) [address], [place], [address], 05/31/2025 12:26:07 05/30/20 25 05/30/2025 CBC W/DIF F basophils 0.4 % 0.0-2. 0 Not Available [facility] (Lab) [address], [place], [address], 05/31/2025 12:26:07 05/30/20 25 05/30/2025 CBC W/DIF [...] separ ately if prese nt. Not Available [facility] (Lab) [address], [place], [address], 05/31/2025 12:26:07 05/30/20 25 05/30/2025 CBC W/DIF F absolute neutrophils 9.5 10'3/ uL 1.5-8. 0 high Not Available [facility] (Lab) [address], [place], [address], 05/31/2025 12:26:07 05/30/20 25 05/30/2025 CBC W/DIF F absolute lymphocytes 1.3 10'3/ uL 1.0-4. 0 Not Available [facility] (Lab) [address], [place], [address], 05/31/2025 12:26:07 05/30/20 25 05/30/2025 CBC W/DIF F absolute monocytes 0.9 10'3/ uL 0.2-1. 0 Not Available [facility] (Lab) [address], [place], [address], 05/31/2025 12:26:07 05/30/20 25 05/30/2025 CBC W/DIF F absolute eosinophils 0.1 10'3/ uL 0.0-0. 6 Not Available [facility] (Lab) [address] [facility], [place], [address], 05/31/2025 12:26:07 05/30/2005/30/2025 CBC W/DIF F absolute basophils 0.1 10'3/ uL 0.0-0. 3 Not Available [facility] (Lab) [address] [facility], [place], [address], 05/31/2025 12:26:07 05/30/20 25 05/30/2025 CBC W/DIF F absolute immature granulocytes 0.1 10'3/ uL 0.00-0 .10 Refer ence range s for nonbi nary/ inter sex or unspe cifie d gende r patie nts have not been estab lishe d. Pleas e [facility] table for range s estab lishe d for cisge nder patie nts and evalu ate in the clini randal kiera xt of the indiv idual patie nt: [email or web address] :[email or web address] [email or web address] Not Available [facility] (Lab) [address] [facility], [place], [address], 05/31/2025 12:26:07 05/30/2005/30/2025 HIV 1/2 ANTIG EN/AN TIBOD Y, REFLE X CONFI RMATI ON HIV antigen/anti body Nonrea ctive nonrea ctive HIV-1 antig en and HIV-1 /HIV- 2 antib odies were not detec alfredo. No labor atory evide nce of HIV infec tion. Not Available [facility] (Lab) [address] [facility], [place], [address], 05/31/2025 12:26:07 05/30/20 25 05/30/2025 GTT - GESTA REGAN L SCREE N, ACOG OB glucose, 1 hour screen 82 mg/dL 70-135 Not Available [facility] (Lab) [address] [facility], [place], [address], 05/31/2025 12:26:08 05/30/20 25 05/30/2025 RPR SCREE N, REFLE X TITER /CONF IRMAT ION RPR qualitative Nonrea ctive nonrea ctive Not Available [facility] (Lab) [address] [facility], [place], [address], 05/31/2025 12:26:08 06/30/20 25 06/30/2025 CBC W/DIF F WBC 11.6 10'3/ uL 3.5-10 .5 high Not Available [facility] (Lab) [address] [facility], [place], [address], 07/01/2025 02:43:32 06/30/20 25 06/30/2025 CBC W/DIF F RBC 3.97 10'6/ uL (based on docume nted legal sex) 3.80-5 .20 Not Available [facility] (Lab) [address] [facility], [place], [address], 07/01/2025 02:43:32 06/30/20 25 06/30/2025 CBC W/DIF F HGB 12.4 g/dL (based on docume nted legal sex) 11.6-1 5.4 Not Available [facility] (Lab) [address] [facility], [place], [address], 07/01/2025 02:43:32 06/30/20 25 06/30/2025 CBC W/DIF F HCT 35.3 % (based on docume nted legal sex) 34.0-4 5.0 Not Available [facility] (Lab) [address], [place], [address], 07/01/2025 02:43:32 06/30/20 25 06/30/2025 CBC W/DIF F MCV 88.9 fL 80.0-9 9.0 Not Available [facility] (Lab) [address], [place], [address], 07/01/2025 02:43:32 06/30/20 25 06/30/2025 CBC W/DIF F MCH 31.2 pg 27.0-3 4.0 Not Available [facility] (Lab) [address], [place], [address], 07/01/2025 02:43:32 06/30/20 25 06/30/2025 CBC W/DIF F MCHC 35.1 g/dL 32.0-3 5.5 Not Available [facility] (Lab) [address], [place], [address], 07/01/2025 02:43:32 06/30/20 25 06/30/2025 CBC W/DIF F RDW 13.2 % 11.0-1 5.0 Not Available [facility] (Lab) [address], [place], [address], 07/01/2025 02:43:32 06/30/20 25 06/30/2025 CBC W/DIF F plt 106 10'3/ uL 150-40 0 low Not Available [facility] (Lab) [address], [place], [address], 07/01/2025 02:43:32 06/30/20 25 06/30/2025 CBC W/DIF F MPV 13.2 fL 8.8-12 .1 high Not Available [facility] (Lab) [address], [place], [address], 07/01/2025 02:43:32 06/30/20 25 06/30/2025 CBC W/DIF F NRBC's 0.0 % 0.0 Not Available [facility] (Lab) [address], [place], [address], 07/01/2025 02:43:32 06/30/20 25 06/30/2025 CBC W/DIF F absolute NRBCs 0.0 10'3/ uL no refere nce range establ ished Not Available [facility] (Lab) [address], [place], [address], 07/01/2025 02:43:32 06/30/20 25 06/30/2025 CBC W/DIF F neutrophils 77.2 % 34.0-7 3.0 high Not Available [facility] (Lab) [address], [place], [address], 07/01/2025 02:43:32 06/30/20 25 06/30/2025 CBC W/DIF F lymphocytes 13.2 % 15.0-5 0.0 low Not Available [facility] (Lab) [address], [place], [address], 07/01/2025 02:43:32 06/30/20 25 06/30/2025 CBC W/DIF F monocytes 7.5 % 1.0-15 .0 Not Available [facility] (Lab) [address], [place], [address], 07/01/2025 02:43:32 06/30/20 25 06/30/2025 CBC W/DIF F eosinophils 0.9 % 0.0-8. 0 Not Available [facility] (Lab) [address] [place], [address], 07/01/2025 02:43:32 06/30/20 25 06/30/2025 CBC W/DIF F basophils 0.4 % 0.0-2. 0 Not Available [facility] (Lab) [address] [place], [address], 07/01/2025 02:43:32 06/30/20 25 06/30/2025 CBC W/DIF [...] separ ately if prese nt. Not Available [facility] (Lab) [address], [place], [address], 07/01/2025 02:43:32 06/30/20 25 06/30/2025 CBC W/DIF F absolute neutrophils 8.9 10'3/ uL 1.5-8. 0 high Not Available [facility] (Lab) [address], [place], [address], 07/01/2025 02:43:32 06/30/20 25 06/30/2025 CBC W/DIF F absolute lymphocytes 1.5 10'3/ uL 1.0-4. 0 Not Available [facility] (Lab) [address], [place], [address], 07/01/2025 02:43:32 06/30/20 25 06/30/2025 CBC W/DIF F absolute monocytes 0.9 10'3/ uL 0.2-1. 0 Not Available [facility] (Lab) [address], [place], [address], 07/01/2025 02:43:32 06/30/20 25 06/30/2025 CBC W/DIF F absolute eosinophils 0.1 10'3/ uL 0.0-0. 6 Not Available [facility] (Lab) [address], [place], [address], 07/01/2025 02:43:32 06/30/20 25 06/30/2025 CBC W/DIF F absolute basophils 0.1 10'3/ uL 0.0-0. 3 Not Available [facility] (Lab) [address], [place], [address], 07/01/2025 02:43:32 06/30/20 25 06/30/2025 CBC W/DIF F absolute immature granulocytes 0.1 10'3/ uL 0.00-0 .10 Refer ence range s for nonbi nary/ inter sex or unspe cifie d gende r patie nts have not been estab lishe d. Casey e refer to the dedricko wing table for range s estab lishe d for cisge nder patie nts and evalu ate in the clini randal kiera xt of the indiv idual patie nt: https ://misael calzada book. nm.or g/gen derx Not Available [facility] (Lab) [address], [place], [address], 07/01/2025 02:43:32 07/12/2007/12/2025 CBC W/DIF F WBC 13.2 10'3/ uL 3.5-10 .5 high Not Available [facility] (Lab) [address], [place], [address], 07/13/2025 05:59:18 07/12/20 25 07/12/2025 CBC W/DIF F RBC 3.94 10'6/ uL (based on docume nted legal sex) 3.80-5 .20 Not Available [facility] (Lab) [address], [place], [address], 07/13/2025 05:59:18 07/12/20 25 07/12/2025 CBC W/DIF F HGB 11.9 g/dL (based on docume nted legal sex) 11.6-1 5.4 Not Available [facility] (Lab) [address], [place], [address], 07/13/2025 05:59:18 07/12/20 25 07/12/2025 CBC W/DIF F HCT 34.9 % (based on docume nted legal sex) 34.0-4 5.0 Not Available [facility] (Lab) [address], [place], [address], 07/13/2025 05:59:18 07/12/20 25 07/12/2025 CBC W/DIF F MCV 88.6 fL 80.0-9 9.0 Not Available [facility] (Lab) [address], [place], [address], 07/13/2025 05:59:18 07/12/20 25 07/12/2025 CBC W/DIF F MCH 30.2 pg 27.0-3 4.0 Not Available [facility] (Lab) [address], [place], [address], 07/13/2025 05:59:18 07/12/20 25 07/12/2025 CBC W/DIF F MCHC 34.1 g/dL 32.0-3 5.5 Not Available [facility] (Lab) [address], [place], [address], 07/13/2025 05:59:18 07/12/20 25 07/12/2025 CBC W/DIF F RDW 13.0 % 11.0-1 5.0 Not Available [facility] (Lab) [address], [place], [address], 07/13/2025 05:59:18 07/12/20 25 07/12/2025 CBC W/DIF F plt 110 10'3/ uL 150-40 0 low Not Available [facility] (Lab) [address], [place], [address], 07/13/2025 05:59:18 07/12/20 25 07/12/2025 CBC W/DIF F MPV 12.9 fL 8.8-12 .1 high Not Available [facility] (Lab) [address], [place], [address], 07/13/2025 05:59:18 07/12/20 25 07/12/2025 CBC W/DIF F NRBC's 0.0 % 0.0 Not Available [facility] (Lab) [address] [place], [address], 07/13/2025 05:59:18 07/12/20 25 07/12/2025 CBC W/DIF F absolute NRBCs 0.0 10'3/ uL no refere nce range establ ished Not Available [facility] (Lab) [address], [place], [address], 07/13/2025 05:59:18 07/12/20 25 07/12/2025 CBC W/DIF F neutrophils 75.1 % 34.0-7 3.0 high Not Available [facility] (Lab) [address], [place], [address], 07/13/2025 05:59:18 07/12/20 25 07/12/2025 CBC W/DIF F lymphocytes 12.6 % 15.0-5 0.0 low Not Available [facility] (Lab) [address], [place], [address], 07/13/2025 05:59:18 07/12/20 25 07/12/2025 CBC W/DIF F monocytes 9.7 % 1.0-15 .0 Not Available [facility] (Lab) [address] [place], [address], 07/13/2025 05:59:18 07/12/20 25 07/12/2025 CBC W/DIF F eosinophils 0.9 % 0.0-8. 0 Not Available [facility] (Lab) [address], [place], [address], 07/13/2025 05:59:18 07/12/20 25 07/12/2025 CBC W/DIF F basophils 0.5 % 0.0-2. 0 Not Available [facility] (Lab) [address] [place], [address], 07/13/2025 05:59:18 07/12/20 25 07/12/2025 CBC W/DIF [...] separ ately if prese nt. Not Available [facility] (Lab) [address], [place], [address], 07/13/2025 05:59:18 07/12/20 25 07/12/2025 CBC W/DIF F absolute neutrophils 9.9 10'3/ uL 1.5-8. 0 high Not Available [facility] (Lab) [address], [place], [address], 07/13/2025 05:59:18 07/12/20 25 07/12/2025 CBC W/DIF F absolute lymphocytes 1.7 10'3/ uL 1.0-4. 0 Not Available [facility] (Lab) [address], [place], [address], 07/13/2025 05:59:18 07/12/20 25 07/12/2025 CBC W/DIF F absolute monocytes 1.3 10'3/ uL 0.2-1. 0 high Not Available [facility] (Lab) [address], [place], [address], 07/13/2025 05:59:18 07/12/20 25 07/12/2025 CBC W/DIF F absolute eosinophils 0.1 10'3/ uL 0.0-0. 6 Not Available [facility] (Lab) [address], [place], [address], 07/13/2025 05:59:18 07/12/20 25 07/12/2025 CBC W/DIF F absolute basophils 0.1 10'3/ uL 0.0-0. 3 Not Available [facility] (Lab) [address] [place], [address], 07/13/2025 05:59:18 07/12/20 25 07/12/2025 CBC W/DIF F absolute immature granulocytes 0.2 10'3/ uL 0.00-0 .10 high Refer ence range s for nonbi nary/ inter sex or unspe cifie d gende r patie nts have not been estab lishe d. Pleluis e refer to the follo wing table for range s estab lishe d for cisge nder patie nts and evalu ate in the clini randal kiera xt of the indiv idual patie nt: https ://misael calzada book. nm.or g/gen derx Not Available [facility] (Lab) [address], [place], [address], 07/13/2025 05:59:18 07/24/2007/24/2025 CBC W/DIF F WBC 14.4 10'3/ uL 3.5-10 .5 high Not Available [facility] (Lab) [address], [place], [address], 2025 04:12:09 07/24/20 25 07/24/2025 CBC W/DIF F RBC 4.15 10'6/ uL (based on docume nted legal sex) 3.80-5 .20 Not Available [facility] (Lab) [address], [place], [address], 2025 04:12:09 07/24/20 25 07/24/2025 CBC W/DIF F HGB 12.8 g/dL (based on docume nted legal sex) 11.6-1 5.4 Not Available [facility] (Lab) [address] [place], [address], 2025 04:12:09 07/24/20 25 07/24/2025 CBC W/DIF F HCT 37.2 % (based on docume nted legal sex) 34.0-4 5.0 Not Available [facility] (Lab) [address] [place], [address], 2025 04:12:09 07/24/20 25 07/24/2025 CBC W/DIF F MCV 89.6 fL 80.0-9 9.0 Not Available [facility] (Lab) [address] [place], [address], 2025 04:12:09 07/24/20 25 07/24/2025 CBC W/DIF F MCH 30.8 pg 27.0-3 4.0 Not Available [facility] (Lab) [address], [place], [address], 2025 04:12:09 07/24/20 25 07/24/2025 CBC W/DIF F MCHC 34.4 g/dL 32.0-3 5.5 Not Available [facility] (Lab) [address], [place], [address], 2025 04:12:09 07/24/20 25 07/24/2025 CBC W/DIF F RDW 14.1 % 11.0-1 5.0 Not Available [facility] (Lab) [address], [place], [address], 2025 04:12:09 07/24/20 25 07/24/2025 CBC W/DIF F plt 115 10'3/ uL 150-40 0 low Not Available [facility] (Lab) [address], [place], [address], 2025 04:12:09 07/24/20 25 07/24/2025 CBC W/DIF F MPV 13.3 fL 8.8-12 .1 high Not Available [facility] (Lab) [address], [place], [address], 2025 04:12:09 07/24/20 25 07/24/2025 CBC W/DIF F NRBC's 0.0 % 0.0 Not Available [facility] (Lab) [address] [place], [address], 2025 04:12:09 07/24/20 25 07/24/2025 CBC W/DIF F absolute NRBCs 0.0 10'3/ uL no refere nce range establ ished Not Available [facility] (Lab) [address], [place], [address], 2025 04:12:09 07/24/20 25 07/24/2025 CBC W/DIF F neutrophils 75.6 % 34.0-7 3.0 high Not Available [facility] (Lab) [address] [place], [address], 2025 04:12:09 07/24/20 25 07/24/2025 CBC W/DIF F lymphocytes 12.3 % 15.0-5 0.0 low Not Available [facility] (Lab) [address] [place], [address], 2025 04:12:09 07/24/20 25 07/24/2025 CBC W/DIF F monocytes 9.3 % 1.0-15 .0 Not Available [facility] (Lab) [address], [place], [address], 2025 04:12:09 07/24/20 25 07/24/2025 CBC W/DIF F eosinophils 0.6 % 0.0-8. 0 Not Available [facility] (Lab) [address] [place], [address], 2025 04:12:09 07/24/20 25 07/24/2025 CBC W/DIF F basophils 0.5 % 0.0-2. 0 Not Available [facility] (Lab) [address] [place], [address], 2025 04:12:09 07/24/20 25 07/24/2025 CBC W/DIF [...] separ ately if prese nt. Not Available [facility] (Lab) [address], [place], [address], 2025 04:12:09 07/24/20 25 07/24/2025 CBC W/DIF F absolute neutrophils 10.8 10'3/ uL 1.5-8. 0 high Not Available [facility] (Lab) [address] [place], [address], 2025 04:12:09 07/24/20 25 07/24/2025 CBC W/DIF F absolute lymphocytes 1.8 10'3/ uL 1.0-4. 0 Not Available [facility] (Lab) [address], [place], [address], 2025 04:12:09 07/24/20 25 07/24/2025 CBC W/DIF F absolute monocytes 1.3 10'3/ uL 0.2-1. 0 high Not Available [facility] (Lab) [address], [place], [address], 2025 04:12:09 07/24/20 25 07/24/2025 CBC W/DIF F absolute eosinophils 0.1 10'3/ uL 0.0-0. 6 Not Available [facility] (Lab) [address] [place], [address], 2025 04:12:09 07/24/20 25 07/24/2025 CBC W/DIF F absolute basophils 0.1 10'3/ uL 0.0-0. 3 Not Available [facility] (Lab) [address] [place], [address], 2025 04:12:09 07/24/20 25 07/24/2025 CBC W/DIF [...] calzada book. nm.or g/gen derx Not Available [facility] (Lab) [address], [place], [address], 2025 04:12:09 07/24/2007/24/2025 CULTU RE: GROUP B STREP SCREE N, REFLE X SUSCE PTIBI LITY result report SEE RESULT S BELOW Test: Cultu re: Group B Strep , Refle x Susce ptibi lity ([facility]/ [facility] ) Speci men Sourc e: Vagin a/Rec mireya Speci men Type: Vagin al/Re ctal Speci men Date: 07/24 1127 Resul t Date: 07/27 1741 Resul t Statu s: Final resul t Abnor mal: No Resul ting Lab: [facility] [address] [facility] [address] Tel: CULTU RE ----- ----- ----- --- No Group B strep isola alfredo at 2 days (lisa ctive broth enhan cemen t) Not Available [facility] (Lab) [address], [place], [address], 07/27/2025 18:44:14 08/04/20 25 08/04/2025 CBC (HEMO GRAM) WBC 12.0 10'3/ uL 3.5-10 .5 high Not Available [facility] (Lab) [address], [place], [address], 08/08/2025 19:28:07 08/04/20 25 08/04/2025 CBC (HEMO GRAM) RBC 4.39 10'6/ uL (based on docume nted legal sex) 3.80-5 .20 Not Available [facility] (Lab) [address], [place], [address], 08/08/2025 19:28:07 08/04/20 25 08/04/2025 CBC (HEMO GRAM) HGB 13.4 g/dL (based on docume nted legal sex) 11.6-1 5.4 Not Available [facility] (Lab) [address], [place], [address], 08/08/2025 19:28:07 08/04/20 25 08/04/2025 CBC (HEMO GRAM) HCT 39.3 % (based on docume nted legal sex) 34.0-4 5.0 Not Available [facility] (Lab) [address], [place], [address], 08/08/2025 19:28:07 08/04/20 25 08/04/2025 CBC (HEMO GRAM) MCV 89.5 fL 80.0-9 9.0 Not Available [facility] (Lab) [address], [place], [address], 08/08/2025 19:28:07 08/04/20 25 08/04/2025 CBC (HEMO GRAM) MCH 30.5 pg 27.0-3 4.0 Not Available [facility] (Lab) [address] [place], [address], 08/08/2025 19:28:07 08/04/20 25 08/04/2025 CBC (HEMO GRAM) MCHC 34.1 g/dL 32.0-3 5.5 Not Available [facility] (Lab) [address], [place], [address], 08/08/2025 19:28:07 08/04/20 25 08/04/2025 CBC (HEMO GRAM) RDW 13.6 % 11.0-1 5.0 Not Available [facility] (Lab) [address] [place], [address], 08/08/2025 19:28:07 08/04/20 25 08/04/2025 CBC (HEMO GRAM) plt 113 10'3/ uL 150-40 0 low Not Available [facility] (Lab) [address], [place], [address], 08/08/2025 19:28:07 08/04/20 25 08/04/2025 CBC (HEMO GRAM) MPV 13.3 fL 8.8-12 .1 high Not Available [facility] (Lab) [address], [place], [address], 08/08/2025 19:28:07 08/04/20 25 08/04/2025 CBC (HEMO GRAM) NRBC's 0.0 % 0.0 Not Available [facility] (Lab) [address], [place], [address], 08/08/2025 19:28:07 08/04/20 25 08/04/2025 CBC (HEMO GRAM) absolute NRBCs 0.0 10'3/ uL no refere nce range establ ished Refer ence range s for nonbi nary/ inter sex or unspe cifie d gende r patie nts have not been estab lishe d. Pleas e refer [facility] table for range s estab lishe d for cisge nder patie nts and evalu ate in the clini randal kiera xt of the indiv idual patie nt: https ://imsael calzada book. nm.or g/gen derx Not Available [facility] (Lab) [address], [place], [address], 08/08/2025 19:28:07 08/04/20 25 08/04/2025 MELONY TIN / IRON / TRANS MELONY N / TIBC iron 110 ug/dL 40-170 Not Available [facility] (Lab) [address] [place], [address], 08/08/2025 19:28:08 08/04/20 25 08/04/2025 MELONY TIN / IRON / TRANS MELONY N / TIBC transferrin 409 mg/dL 200-36 0 high Not Available [facility] (Lab) [address], [place], [address], 08/08/2025 19:28:08 08/04/20 25 08/04/2025 MELONY TIN / IRON / TRANS MELONY N / TIBC ferritin 115.4 NG/mL 8.0-25 2.0 Not Available [facility] (Lab) [address], [place], [address], 08/08/2025 19:28:08 08/04/20 25 08/04/2025 MELONY TIN / IRON / TRANS MELONY N / TIBC TIBC 573 ug/dL 250-45 0 high Not Available [facility] (Lab) [address], [place], [address], 08/08/2025 19:28:08 08/04/20 25 08/04/2025 MELONY TIN / IRON / TRANS MELONY N / TIBC iron saturation 19 % 20-55 low Not Available [facility] (Lab) [address] [place], [address], 08/08/2025 19:28:08 08/04/20 25 08/04/2025 VITAM IN B12 / FOLAT E PANEL vitamin B12 423 pg/mL 180-91 4 Vianey l Range : 180-9 14 pg/mL . Indet ermin ate Range : 145-1 80 pg/mL . Defic ient Range : <=145 pg/mL . Not Available [facility] (Lab) [address] [place], [address], 08/08/2025 19:28:08 08/04/20 25 08/04/2025 VITAM IN B12 / FOLAT E PANEL folate, serum >22.3 NG/mL >=6.0 Not Available [facility] (Lab) [address] [place], [address], 08/08/2025 19:28:08 08/04/20 25 08/04/2025 INTRI NSIC FACTO R BLOCK ING ANTIB TIM, SERUM intrinsic factor blocking Ab, S Negati ve negati ve Not Available [facility] (Lab) [address], [place], [address], 08/08/2025 19:28:08 08/04/20 25 08/04/2025 INTRI NSIC [...] be indic ated. Test Perfo rmed by: [facility] [place] [address], [place] [address] Lab Direc tor: Lawanda Goode nn Ph.D. ; CLIA# [id number] Not Available [facility] (Lab) [address], [place], [address], 08/08/2025 19:28:08 08/04/20 25 08/04/2025 PARIE LUIS CELL ANTIB ODIES , IGG, SERUM parietal cell Ab, IgG, S <10.0 U <=20.0 (negat kvng) Test Perfo rmed by: [facility] [place] [address], [place] [address] Lab Direc tor: Lawanda Goode nn Ph.D. ; CLIA# [id number] Not Available [facility] (Lab) [address] [place], [address], 08/08/2025 19:28:09 08/04/20 25 08/04/2025 CBC W/DIF F CBC and differential CANCEL LED No Speci men Recei carin Not Available [facility] (Lab) [address], [place], [address], 08/10/2025 17:13:18 08/04/20 25 08/04/2025 VITAM IN B12 / FOLAT E PANEL vitamin B12/folate panel CANCEL LED No Speci men Recei carin Not Available [facility] (Lab) [address] [facility] [address] [facility], [place], [address], 08/10/2025 17:13:19 08/04/20 25 08/04/2025 CBC (HEMO GRAM) CBC (hemogram) CANCEL LED No Speci men Recei carin Not Available [facility] (Lab) [address] [facility], [place], [address], 08/10/2025 17:14:29 08/04/20 25 08/04/2025 MELONY TIN / IRON / TRANS MELONY N / TIBC ferritin / iron / transferrin / TIBC (nmh/lfh/gl/ cdh/kh/vw/nw r) CANCEL LED No Speci men Recei carin Not Available [facility] (Lab) [address], [place], [address], 08/10/2025 17:25:30 02/11/20 25 02/10/2025 US, obste tric, nucha l trans lucen cy No observ ation record ed. [facility] [address], [place], [address], 02/10/2025 18:38:42 02/11/20 25 02/10/2025 US, obste tric, follo w-up No observ ation record ed. [email or web address] [address], [place], [address], 02/13/2025 09:20:03 04/03/20 25 04/03/2025 US, obste tric, 2nd or 3rd trime ster No observ ation record ed. [email or web address] [place] [address], [place], [address], 04/03/2025 18:43:20 04/03/20 25 04/03/2025 US, obste tric, 2nd or 3rd trime ster No observ ation record ed. [email or web address] [address], [place], [address], 04/05/2025 17:47:52 04/21/20 25 04/21/2025 non-s tress test No observ ation record ed. [address] [address], [place], [address], 04/24/2025 12:03:28 05/02/20 25 05/02/2025 US, obste tric, follo w-up No observ ation record ed. [facility] [address], [place], [address], 05/02/2025 12:58:26 05/02/20 25 05/02/2025 US, obste tric, follo w-up No observ ation record ed. ROBERT [address], [place], [address], 05/03/2025 18:13:01 05/29/20 25 05/29/2025 non-s tress test No observ ation record ed. [address], [address], 05/31/2025 15:39:22 06/20/2006/20/2025 imagi ng/di agnos tic resul t No observ ation record ed. [facility] [place], [address], 06/20/2025 13:33:45 06/20/20 25 06/20/2025 US, obste tric, follo w-up No observ ation record ed. [email or web address] [facility] [address] [place], [address], 06/27/2025 17:32:46 07/03/2007/03/2025 non-s tress test No observ ation record ed. [address] [address], [place], [address], 07/19/2025 15:34:42 07/03/2007/03/2025 imagi ng/di agnos tic resul t No observ ation record ed. [address] [address], [place], [address], 07/03/2025 11:55:37 07/26/2007/26/2025 imagi ng/di agnos tic resul t No observ ation record ed. [address] [address], [place], [address], 07/26/2025 18:39:01 07/26/2007/26/2025 imagi ng/di agnos tic resul t No observ ation record ed. [facility] [address] [place] [address], [id number], 07/26/2025 18:39:01 07/26/2007/26/2025 imagi ng/di agnos tic resul t No observ ation record ed. [facility] [address] [place] [address], [id number], 07/26/2025 18:39:01 08/14/2008/14/2025 imagi ng/di agnos tic resul t No observ ation record ed. [facility] [address] [place] [address], [id number], 08/14/2025 09:43:44 08/14/2008/14/2025 imagi ng/di agnos tic resul t No observ ation record ed. [facility] [address] [place] [address], [id number], 08/14/2025 14:53:30 Result Notes None recorded. Problems Name Problem SNOMED Code Status Onset Date Resolution Date Notes Provider Name and Address Organization Details Recorded Time Anxiety 90380921 Active 2024 Kristen Ruffin [facility] 5 11:01:06 53920447 Active 2024 Aleah Bedolla [facility] 11:57:32 Platelet count below reference range 616520126 Active 2024 Referral faxed to [facility] 06/01 scheduled 06/20 0900 Level II us and consult Zoey Tarango [facility] 11:50:53 Problem Notes None recorded. Procedures Surgical History Date Name Laterality Status Provider Name and Address Organization Details Recorded Time 5 Date of Last Pap Smear completed Kristen Ruffin [facility] 01/13/2025 11:01:13 7 operative procedure on wrist completed Aleah Bedolla [facility] 02/10/2025 11:57:07 Imaging Results None [...] and Address Organization Details Last Updated DateTime 08/04/2025 170.18 cm 29.3 kg/m2 08548.77 g 128/77 mm[Hg] CHERIE CARR [facility] 08/04/2025 15:36:53 Social History Question Answer Notes LastModified by Organizat ion Details LastModified Time Tobacco Smoking Status Never Smoker Kristen sánchez, [facility] 01/13/2025 11:05:22 If You Are , What Was Your Level Of Alcohol Consumption Prior To ? Occasional [email or web address] Information not available 01/13/2025 Are You Blind Or Do You Have Difficulty Seeing? No [email or web address] Information n ot available 01/13/2025 What Is Your Level Of Caffeine Consumption? Occasional [email or web address] Information not available 01/13/2025 In The 14 Days Before Symptom Onset, Have You Had Close Contact With A Laboratory-confirm ed COVID-19 While That Case Was Ill? No [email or web address] Information n ot available 01/13/2025 In The 14 Days Before Symptom Onset, Have You Had Close Contact With A Person Who Is Under Investigation For COVID-19 While That Person Was Ill? No [email or web address] Information not available 01/13/2025 Have You Been To An Area Known To Be High Risk For COVID-19? No [email or web address] Information not available 01/13/2025 Are You Deaf Or Do You Have Serious Difficulty Hearing? No Information not available 01/13/2025 Do You Have Smoke And Carbon Monoxide Detectors In Your Home? Yes Information not available 01/13/2025 Do You Use Sunscreen Routinely? Yes [email or web address] Information not available 01/13/2025 Has Tobacco Cessation Counseling Been Provided? No [email or web address] Information not available 01/13/2025 Have You Used IV Drugs? No [email or web address] Information not available 01/13/2025 Do You Have Difficulty Walking Or Climbing Stairs? No [email or web address] Information not available 01/13/2025 Sex: Unknown Functional Status Question Answer Note LastModified by Organizat ion Details LastModified Time Do you use any illicit or recreational drugs? No [email or web address] Information not available 01/13/2025 Do you or have you ever used any other forms of tobacco or nicotine? Yes [email or web address] Information not available 01/13/2025 What is your level of alcohol consumption? None [email or web address] Information not available 01/13/2025 Are you able to walk independently without assistance or assistive devices? YESWOREST [email or web address] Information not available 01/13/2025 Are you able to care for yourself independently? Yes [email or web address] Information not available 01/13/2025 Do you have difficulty dressing, bathing, grooming, or toileting? No [email or web address] Information not available 01/13/2025 Do you or have you ever used e-cigarettes or vape? Former user of electronic cigarettes [email or web address] Information not available 01/13/2025 Mental Status None recorded. Family History Relationship Description Onset Age of this Age Resolved Age Notes LastModified by Organization Details LastModified Time Unspecified Relation Family history unknown Not available 2024 13:48:03 Paternal Grandfather Malignant neoplasm of prostate [email or web address] Not available 07/31 15:39:21 Maternal Grandfather Malignant neoplasm of lung [email or web address] Not available 01/13 11:03:40 Maternal Grandmother Malignant neoplasm of pancreas [email or web address] Not available 07/31 15:39:21 Maternal Aunt Malignant neoplasm of breast [email or web address] Not available 2024 13:48:03 Father Leukemia [email or web address] Not availa ble 08/10/2025 15:39:21 Mother Diabetes mellitus [email or web address] Not available 01/13 11:04:57 Medical History Condition [...] ICD10 Code Diagnosis IMO Codes Diagnosis Note [id number] JOLIE TOMLINSON MD [place] [address] [address] 07/12/2025 13:47:56 07/14/2025 11:51:27 Thrombocytopenic disorder 697567535 D69.6 50728 - plt 125>131>77 - repeat today- MFM consult Gestation period, 34 weeks 15077195 Z3A.34 6848387 - continue PNV [id number] JOLIE TOMLINSON MD [place] [address] [address] 07/24/2025 11:18:52 07/24/2025 12:20:34 Thrombocytopenic disorder 480906696 D69.6 15820 - plt 125>131>77 >110- repeat today- MFM consult Gestation period, 36 weeks 36280315 Z3A.36 [id number] JOLIE TOMLINSON MD [place] [address],[place] [address] 08/04/2025 15:30:27 08/04/2025 16:22:08 Cobalamin deficiency 733209124 E53.8 539028 - on injections Platelet c ount below reference range 420069075 D69.6 67738871 - plt 125>131>11 3>115- MFM consult Gestation period, 37 weeks 79102683 Z3A.37 0551521 - continue PNV Health Concerns Section Related Observation LastModified by Organization Detai ls LastModified Time None Recorded Concern Status LastModified by Organization Details LastModified Time None Recorded Payers Encounter Date Sequence Insurance Name Policy Number Policy Marie Covered Member ID Marie Member ID Guarantor Name 08/04/2025 1 [employer] [id number] Kya Angulo [id number] Kya Angulo Notes Date Note Type Note Provider Name and Address Organization Details Recorded Time 08/04/2025 text/html Generic HPI TemplateReported by Patient JOLIE TOMLINSON MD [address], [place], [address], [place] [facility] 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 Problem Name Start Date End Date Resolution Snomed Code Not e Platelet count below reference range 06/01/2025 [id number] Referral fax ed to [facility] [place] 06/01 scheduled 06/20 0900 Level II us [...] Date Ultra Sound Latest Days Gestation 0 [email or web address] 02/10/2025 08/21/20 25 0 Pre- Flowsheet Flowsheet Date 02/10/2025 [place] Score Blood Edema Fundus Height Fundus Units Glucose Ketones Leukocytes Nitrite Labor Signs Protein Cervic Dilation Cervic Effacement Cervic Station Type Weight in lbs Pre/Post Dialysis Refused Weight 153.915684923964 BP Diastolic BP Location Tested BP Systolic BP Type 77 L arm 122 sitting Fetus Heart Rate Present A Present Fetus Movement Comments Patient presents to [facility] care. otherwise uncomplicated. No bleeding [...] Weight in lbs Pre/Post Dialysis Refused Weight 156.309512431630 BP Diastolic BP Location Tested BP Systolic [...] Weight in lbs Pre/Post Dialysis Refused Weight 160.828052953214 BP Diastolic BP Location Tested BP Systolic [...] Weight in lbs Pre/Post Dialysis Refused Weight 165.937857177507 BP Diastolic BP Location Tested BP Systolic [...] Type Weight in lbs Pre/Post Dialysis Refused 176.032070450742 BP Diastolic BP Location Tested BP Systolic BP Type 78 L arm 118 sitting Fetus Heart Rate Present A 150 Fetus Movement A Yes Comments Had an episode of DFM yester day, went to [facility] and had negative workup. No cramping or bleeding. GCT and labs today, will draw CBC as well. Discussed Tdap, RSV, and flu vaccines. RTC 2 weeks. Flowsheet Date 06/13/2025 Kirkland Score Blood Edema Fundus Height Fundus Units Glucose Ketones Leukocytes Nitrite Labor Signs Protein Cervic Dilation Cervic Effacement Cervic Station Type Weight in lbs Pre/Post Dialysis Refused 181.098883411928 BP Diastolic BP Location Tested BP Systolic [...] Weight in lbs Pre/Post Dialysis Refused Weight 178.558568711886 BP Diastolic BP Location Tested BP Systolic BP Type 78 L arm 112 sitting Fetus Heart Rate Present A 140 Fetus Movement A Yes Comments Good movement. No cram ping or bleeding. Saw MFM, recommend platelet counts every visit. Bridge Instructor appointment next week to determine if autoimmune vs gestational. EFW 92%, AC 93%; discussed 39 week induction, plan for 12/15 PM. Preadmission scheduled. RSV vaccine discussed. RTC 2 weeks. Flowsheet Date 07/12/2025 Kirkland Score Blood Edema Fundus Height Fundus Units Glucose Ketones Leukocytes Nitrite Labor Signs Protein Cervic Dilation Cervic Effacement Cervic Station Type Weight in lbs Pre/Post Dialysis Refused Weight 185.956120942006 BP Diastolic BP Location Tested BP Systolic [...] Weight in lbs Pre/Post Dialysis Refused Weight 186.468871207184 BP Diastolic BP Location Tested BP Systolic [...] Weight in lbs Pre/Post Dialysis Refused Weight 187.833202152554 BP Diastolic BP Location Tested BP Systolic [...] Weight in lbs Pre/Post Dialysis Refused Weight 189.288019377465 BP Diastolic BP Location Tested BP Systolic [...]
--- OUTSIDE RECORDS SUMMARY | 2025-08-14 17:57 | XMS_ITS | Clinical Summary ---
Author Organization [facility] Address [address] [place] [address] Care Team Providers Care Thermal Technician Name Role Phone Ale Cueva MD Primary Care Provider [phone] Ale Cueva MD Unavailable [phone] Source Comments [facility],non-owned Affiliates and Associated Physician Practices is amultiple site organization consisting of ambulatory clinics and hospital sitesin [place], [place], [place] and [place]. This disclosure is being madepursuant to the Care Everywhere program and may not contain all information available regarding this patient. Last updated 18.[facility] Allergies No known active allergies Medications * [...] mL 11 5 Active neomycin-polym yxin-hc (CORTISPORIN) 3.5-30921-6 otic suspensionIndi cations:Infect ious otitis externa, left [...] Encounters Date Type Department Care Team Description 08/14/2025 7:26 AM MOLD TECHNICIAN Hospital Encounter [facility] [address] [place] [address] Sherrie He MD 08/03/2025 9:00 AM MOLD TECHNICIAN Office Visit [facility] - H[facility] [address] [place] [address] Lauren Cedeno MD Acquired thrombocytopenia (Primary Dx) 08/03/2025 Travel 08/02/2025 7:25 AM MOLD TECHNICIAN - 08/02/2025 11:59 PM MOLD TECHNICIAN Hospital Encounter [facility] Care [address] [place] [address] Blanche Esparza MD Discharge Disposition: Home or Self Care 08/02/2025 Orders Only [facility] [address] [place] [phone] Lauren Cedeno MD Acquired thrombocytopenia ; B12 deficiency 08/02/2025 Travel 07/26/2025 8:50 AM MOLD TECHNICIAN - 07/26/2025 11:59 PM MOLD TECHNICIAN Hospital Encounter [facility] M[facility] & Care [address] [place] [address] Odilon Oquendo MD Discharge Disposition: Home or Self Care 07/26/2025 8:49 AM MOLD TECHNICIAN Hospital Encounter [facility] [address] [place] [address] Odilon Oquendo MD Discharge Disposition: Home or Self Care 07/19/2025 7:28 AM MOLD TECHNICIAN - 07/19/2025 11:59 PM MOLD TECHNICIAN Hospital Encounter [facility] Care [address] [place] [address] Rubi Coyle MD Discharge Disposition: Home or Self Care 07/18/2025 Orders Only [facility] [address] [place] [phone] Lauren Cedeno MD 07/12/2025 12:31 PM MOLD TECHNICIAN - 07/12/2025 11:59 PM MOLD TECHNICIAN Hospital Encounter [facility] Care [address] [place] [address] Blanche Esparza MD Discharge Disposition: Home or Self Care 07/11/2025 Orders Only [facility] - Hematology/[facility] gy [address] [place] [phone] Lauren Cedeno MD 07/10/2025 Telephone [facility] & Care [address] [place] [phone] Elise Odonnell RN Question (Zoey from Dr. Boswell's office called about patient calling their office regarding B12 injections and Iron infusions. Zoey questioning [facility] hematology note/recommendations. Unsure of what patient wants. ) 07/07/2025 9:00 AM MOLD TECHNICIAN Office Visit [facility] - Hematology/[facility] [address] [place] [phone] Lauren Cedeno MD B12 deficiency (Primary Dx); Acquired thrombocytopenia 07/07/2025 Travel 07/03/2025 Telephone [facility] [address] [place] [address] Nitza Marrero RN Results 06/20/2025 8:45 AM CDT - 06/20/2025 11:59 PM CDT Hospital Encounter [facility] [address] [place] [address] Odilon Oquendo MD Discharge Disposition: Home or Self Care 06/20/2025 8:41 AM CDT - 06/20/2025 8:44 AM CDT Hospital Encounter [facility] [address] [place] [phone] Odilon Oquendo MD Discharge Disposition: Home or [...] care, and heating? Not very hard 07/07/2025 [facility] - Occupational Stress [...] any time in the past 12 m [facility], were you homeless or living in a custodial (including now)? No 07/07/2025 Education Answer Date Recorded What is the highest level of school you have completed or the highest degree you have received? 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 file Not on file Not on file Last Filed Vital Signs Vital Sign Reading Time Taken Comments Blood Pressure 128/77 08/03/2025 8:39 AM MOLD TECHNICIAN Pulse 99 08/03/2025 8:39 AM MOLD TECHNICIAN Temperature 37.1 C (98.8 F) 08/03/2025 8:39 AM MOLD TECHNICIAN Respiratory Rate 12 08/03/2025 8:39 AM MOLD TECHNICIAN Oxygen Saturation 98% 08/03/2025 8:39 AM MOLD TECHNICIAN Inhaled Oxygen Concentration - - Weight 85.5 kg (188 lb 8 oz) 08/03/2025 8:39 AM MOLD TECHNICIAN Height 172.7 cm (5' 8) 08/03/2025 8:39 AM MOLD TECHNICIAN Body Mass Index 28.66 08/03/2025 8:39 AM MOLD TECHNICIAN Plan of Treatment Upcoming Encounters Date Type Department Care Team (Late st Contact Info) Description 10/12/2025 10:20 AM MOLD TECHNICIAN Office Visit [facility] - Hematology/Oncology [address] [place] [phone] Lauren Cedeno MD [address] [place] [address] Health Maintenance Due Date Last Done Comments CHLAMYDIA/GONORRHEA SCREENING 2017 PAP SMEAR 2022 DTAP/TDAP/TD VACCINES (7 - Td or Tdap) 04/05/2023 04/05/2013, 02/23/2007, 03/28/2003, Additional history exists COVID-19 VACCINE ( season) 2025 OB-ONE HOUR GLUCOSE 05/15/2025 OB-TDAP CURRENT 05/22/2025 04/05/2013 OB-RHOGAM INJECTION 05/29/2025 OB-GROUP B STREP SCREEN 07/17/2025 ZOSTER VACCINE (1 of 2) 2051 HEPATITIS B VACCINE Completed 07/26/2002, 2001, 2001 HIB VACCINE Completed 07/26/2002, 10/2001, 2001 PNEUMOCOCCAL VACCINE Completed 07/26/2002, 02/08/2002, 2001, Additional history exists HPV VACCINE Completed 08/03/2018, 05/08/2016 MENINGOCOCCAL GROUPS A/C/Y/W VACCINE Completed 08/03/2018, 04/05/2013 HIV SCREENING Completed 05/30/2025 INFLUENZA VACCINE Completed 06/19/2025 DEPRESSION SCREENING Completed 07/07/2025 HEPATITIS C SCREENING Completed 07/07/2025 MENINGOCOCCAL (Group B) VACCINE SHARED DECISION-MAKING Aged Out No longer eligible based on patient's age to complete this topic Respiratory Syncytial Virus (RSV) Vaccine Pt: or over 60 yrs (No Doses Required) Completed Procedures Procedure Name Priority Date/Time Associated Diagnosis Comments SONOGRAM - COMPLETE Routine 08/14/2025 7 :41 AM MOLD TECHNICIAN Encounter for ultrasound to assess growth (HCC) Low serum vitamin B12 Thrombocytopenia affecting , antepartum (HCC) Supervision of high-risk of young primigravida (HCC) 39 weeks gestation of (HCC) FERRITIN Routine 08/03/2025 9:15 AM MOLD TECHNICIAN Acquired thrombocytopenia VITAMIN B12 Routine 08/03/2025 9:15 AM MOLD TECHNICIAN Acquired thrombocytopenia INTRINSIC FACTOR BLOCKING AB Routine 08/03/2025 9:15 AM MOLD TECHNICIAN Acquired thrombocytopenia PARIETAL CELL AB RFLX TITER Routine 08/03/2025 9:15 AM MOLD TECHNICIAN Acquired thrombocytopenia SONOGRAM - COMPLETE Routine 07/26/2025 8 :58 AM MOLD TECHNICIAN Low serum vitamin B12 Thrombocytopenia affecting , antepartum (HCC) 37 weeks gestation of (HCC) Supervision of high-risk of young primigravida (HCC) Encounter for ultrasound to assess growth (HCC) LAB RESULTS ORDER Routine 2025 1:1 3 PM MOLD TECHNICIAN CBC W AUTO DIFFERENTIAL Routine 07/07/2025 10:07 AM MOLD TECHNICIAN Acquired thrombocytopenia COMPREHENSIVE METABOLIC PANEL Routine 07/07/2025 10:07 AM MOLD TECHNICIAN Acquired thrombocytopenia HEPATITIS B SURFACE ANTIBODY Routine 07/07/2025 10:07 AM MOLD TECHNICIAN Acquired thrombocytopenia HEPATITIS B CORE ANTIBODY IGM Routine 07/07/2025 10:07 AM MOLD TECHNICIAN Acquired thrombocytopenia HEPATITIS C AB W/RFLX TO HCV RNA QN PCR Routine 07/07/2025 10:07 AM MOLD TECHNICIAN Acquired thrombocytopenia FOLATE Routine 07/07/2025 10:07 AM MOLD TECHNICIAN Acquired thrombocytopenia VITAMIN B12 Routine 07/07/2025 10:07 AM MOLD TECHNICIAN Acquired thrombocytopenia FERRITIN Routine 07/07/2025 10:07 AM MOLD TECHNICIAN Acquired thrombocytopenia HEPATITIS B CORE ANTIBODY TOTAL Routine 07/07/2025 10:04 AM MOLD TECHNICIAN Acquired thrombocytopenia SONOGRAM - COMPLETE Routine 06/20/2025 8 :49 AM CDT Thrombocytopenia affecting , antepartum (HCC) 31 weeks gestation of (HCC) Encounter for anatomic survey (HCC) Encounter for ultrasound to assess growth (HCC) from Last 3 Months Results * Sonogram - Complete (08/14/2025 7:41 AM MOLD TECHNICIAN) Only the most recent of3 resultswithin the time period is included. Linked Results Indication ======== Maternal care for excessive growth Thrombocytopenia, unspecified History ====== OB History 1. Para 0 [id number] Maternal Assessment Physical Exam Height 170 cm, [...] O36.63X0: Maternal care for excessive growth Procedures 04379: US [facility] Laterality Modality Other 08/14/2025 7:41 AM MOLD TECHNICIAN R Mehul Steele MD [facility] ORDERABLES Edited Result - Final * PARIETAL CELL AB RFLX TITER (08/03/2025 9:15 AM MOLD TECHNICIAN) Parietal Cell Antibody Screen NEGATIVE NEGATIVE [facility] Comment: Test Performed at: [employer] [address] [address] DALJIT WAHL Blood BLOOD SPECIMEN / Unknown 08/03/2025 9:15 AM MOLD TECHNICIAN 08/03/2025 9:16 AM MOLD TECHNICIAN Lauren Cedeno MD LAB - SEROLOGY ORDERABLES Fi nal Result Performing Organization Address City/[facility] Co de Phone Number [facility] [address] [place] [address] * INTRINSIC FACTOR BLOCKING AB (08/03/2025 9:15 AM MOLD TECHNICIAN) Intrinsic Factor Blocking Antibody NEGATIVE [facility] Comment: Reference Range: ADULTS: NEGATIVE For additional information, please refere to http://education.Status Overload/faq/IFAB (This link is being provided for informational/educational purposes only.) Test Performed at: [employer]/[facility] [address] [place] [address] ESTELLA GOOD MD,PHD,YASMEEN Blood BLOOD SPECIMEN / Unknown 08/03/2025 9:15 AM MOLD TECHNICIAN 08/03/2025 9:16 AM MOLD TECHNICIAN Lauren Cedeno MD LAB - SEROLOGY ORDERABLES Fi nal Result Performing Organization Address City/[facility]/ZIP Co de Phone Number [facility] [address] [place] [address] * VITAMIN B12 (08/03/2025 9:15 AM MOLD TECHNICIAN) Only the most recent of2 resultswithin the time period is included. [facility] Vitamin B12 784 200 - 1100 pg/mL [facility] Comment: Test Performed at: [employer] [id number] [facility] [place] [address] BELTRAN LARIOS MD Blood BLOOD SPECIMEN / Unknown 08/03/2025 9:15 AM MOLD TECHNICIAN 08/03/2025 9:16 AM MOLD TECHNICIAN Lauren Cedeno MD LAB - CHEMISTRY ORDERABLES F inal Result Performing Organization Address City/[facility]/ZIP Co de Phone Number [address] [address] * FERRITIN (08/03/2025 9:15 AM MOLD TECHNICIAN) Only the most recent of2 resultswithin the time period is included. [facility] Ferritin 124 16 - 154 ng/mL [facility] Comment: Test Performed at: [employer] [address] [facility] [place] [address] BELTRAN LARIOS MD Blood BLOOD SPECIMEN / Unknown 08/03/2025 9:15 AM MOLD TECHNICIAN 08/03/2025 9:16 AM MOLD TECHNICIAN Lauren Cedeno MD LAB - CHEMISTRY ORDERABLES F inal Result Performing Organization Address City/[facility]/ZIP Co de Phone Number [address] [address] * LAB RESULTS ORDER (2025 1:13 PM MOLD TECHNICIAN) Historical Provider LAB - THERAPEUTIC DRUG [place] NITORING ORDERABLES Final Result * HEPATITIS C AB W/RFLX TO HCV RNA QN PCR (07/07/2025 10:07 AM MOLD TECHNICIAN) [facility] Hepatitis C Antibody NON-REACTI VE NON-REACT [facility] Comment: HCV antibody was non-reactive. There is no laboratory evidence of HCV infection. In most cases, no further action is required. However, if recent HCV exposure is suspected, a test for HCV RNA (test code 36850) is suggested. For additional information please refer to http://education.Status Overload/faq/VFE47v3 (This link is being provided for informational/ educational purposes only.) Test Performed at: [employer] [address] [place] [address] BELTRAN LARIOS MD Blood BLOOD SPECIMEN / Unknown 07/07/2025 10:07 AM MOLD TECHNICIAN 07/07/2025 10:08 AM MOLD TECHNICIAN us Lauren Cedeno MD LAB - CHEMISTRY ORDERABLES F inal Result [facility] [address] [place] [address] * (ABNORMAL) CBC WITH DIFFERENTIAL (07/07/2025 10:07 AM MOLD TECHNICIAN) White Blood Cell Count 10.5 3.8 - [...] 0.4 % [facility] Comment: Test Performed at: [place] [address] BELTRAN LARIOS MD Blood BLOOD SPECIMEN / Unknown 07/07/2025 10:07 AM MOLD TECHNICIAN 07/07/2025 10:08 AM MOLD TECHNICIAN Lauren Cedeno MD LAB - HEMATOLOGY ORDERABLES Final Result [facility] [address] [place] [address] * (ABNORMAL) COMPREHENSIVE METABOLIC PANEL (07/07/2025 10:07 AM MOLD TECHNICIAN) Glucose 72 65 - 99 mg/dL [facility] [...] 29 U/L [facility] Comment: Test Performed at: [employer] [address] [place] [address] BELTRAN LARIOS MD Blood BLOOD SPECIMEN / Unknown 07/07/2025 10:07 AM MOLD TECHNICIAN 07/07/2025 10:08 AM MOLD TECHNICIAN Lauren Cedeno MD LAB - CHEMISTRY ORDERABLES F inal Result Performing Organization Address [facility] de Phone Number [employer] [phone] [place], [place] [phone] * HEPATITIS B SURFACE ANTIBODY (07/07/2025 10:07 AM MOLD TECHNICIAN) Pathologist [facility] Hepatitis B Virus Surface Antibody NON-REACTI VE NON-REACT [facility] Comment: Test Performed at: [place] [address] BELTRAN LARIOS MD Blood BLOOD SPECIMEN / Unknown 07/07/2025 10:07 AM MOLD TECHNICIAN 07/07/2025 10:08 AM MOLD TECHNICIAN Lauren Cedeno MD LAB - CHEMISTRY ORDERABLES F inal Result Performing Organization Address [facility] de Phone Number [employer] [phone] [place] [address] * FOLATE (07/07/2025 10:07 AM MOLD TECHNICIAN) Pathologist [facility] Folate 20.4 ng/mL [facility] Comment: Reference Range Low: <3.4 Borderline: 3.4-5.4 Normal: >5.4 Test Performed at: [employer] [facility] [place] [address] BELTRAN LARIOS MD Blood BLOOD SPECIMEN / Unknown 07/07/2025 10:07 AM MOLD TECHNICIAN 07/07/2025 10:08 AM MOLD TECHNICIAN Lauren Cedeno MD LAB - CHEMISTRY ORDERABLES F inal Result Performing Organization Address [facility] de Phone Number [employer] [address] [place] [address] * HEPATITIS B CORE ANTIBODY IGM (07/07/2025 10:07 AM MOLD TECHNICIAN) [facility] Hepatitis B Core Virus Antibody IgM NON-REACTI VE NON-REACT [facility] Comment: For additional information, please refer to http://education.Status Overload/faq/XRU172 (This link is being provided for informational/ educational purposes only.) Test Performed at: [employer] [address] [facility] [place] [address] BELTRAN LARIOS MD Blood BLOOD SPECIMEN / Unknown 07/07/2025 10:07 AM MOLD TECHNICIAN 07/07/2025 10:08 AM MOLD TECHNICIAN Lauren Cedeno MD LAB - CHEMISTRY ORDERABLES F inal Result Performing Organization Address [facility] de Phone Number [facility] [address] [place] [phone] * HEPATITIS B CORE ANTIBODY TOTAL (07/07/2025 10:04 AM MOLD TECHNICIAN) Hepatitis B Core Virus Antibody Total NON-REACTI VE NON-REACT [facility]HIK [facility] Comment: For additional information, please refer to http://education.Status Overload/faq/OPS954 (This link is being provided for informational/ educational purposes only.) Test Performed at: [employer] [address] [facility] [place] [address] BELTRAN LARIOS MD Blood BLOOD SPECIMEN / Unknown 07/07/2025 10:04 AM MOLD TECHNICIAN 07/07/2025 10:08 AM MOLD TECHNICIAN Lauren Cedeno MD LAB - CHEMISTRY ORDERABLES F inal Result Performing Organization Address [facility] de Phone Number [facility] [phone] [place] [phone] from Last 3 Months Insurance DANNY [facility] ANTH ANTHEM ANTHEM ANTHEM ANTHEM ANTHEM ANTHEM ANTHEM ANTHEM ANTHEM ANTHEM ANTHEM * Guarantor: GABBY SARMIENTO Account Type Relation to Patient Date of Phone Billing Address Personal/Family Other Care Teams Thermal Technician Relationship Specialty Start Date End Date Ale Cueva MD [facility] [address] [place] [address] PCP - General 02/03/18 Ale Cueva MD [address] [facility] [address] [place] [address] Pediatrics 02/03/18
--- OUTSIDE RECORDS SUMMARY | 2025-08-14 17:57 | XMS_ITS | Continuity of Care Document ---
Author Organization [facility] [place] Address [address] [place] [address] Care Team Providers Care Blade Aligner Name Role Phone SHERYL DICKSON Primary Care [...] Billio ntoone [address], [place], [address], 02/16/2025 19:59:32 02/17/20 25 02/16/2025 [UNIT Y] ANEUP LOIDY NIPT 22Q11.2 microdeletio n LOW RISK <1 in 10,000 normal Not Available [facility] [address], [place], [address], 02/16/2025 19:59:32 02/17/20 25 02/16/2025 [UNIT Y] ANEUP LOIDY NIPT sex chromosome aneuploidy NOT DETECT ED normal Not Available [facility] [address] [place], [address], 02/16/2025 19:59:32 02/17/20 25 02/16/2025 [UNIT Y] ANEUP LOIDY NIPT monosomy X LOW RISK <1 in 10,000 normal Not Available [facility] [address], [place], [address], 02/16/2025 19:59:32 02/17/20 25 02/16/2025 [UNIT Y] ANEUP LOIDY NIPT trisomy 13 LOW RISK <1 in 10,000 normal Not Available [facility] [address], [place], [address], 02/16/2025 19:59:32 02/17/20 25 02/16/2025 [UNIT Y] ANEUP LOIDY NIPT trisomy 18 LOW RISK <1 in 10,000 normal Not Available [facility] [address], [place], [address], 02/16/2025 19:59:32 02/17/20 25 02/16/2025 [UNIT Y] ANEUP LOIDY NIPT trisomy 21 LOW RISK <1 in 10,000 normal Not Available [facility] [address], [place], [address], 02/16/2025 19:59:32 02/17/20 25 02/16/2025 [UNIT Y] ANEUP LOIDY NIPT sex MALE normal Not Available [facility]t [facility] [address], [place], [address], 02/16/2025 19:59:32 02/17/20 25 02/16/2025 [UNIT Y] ANEUP LOIDY NIPT gestation SINGLE TON normal Not Available [facility] [address], [place], [address], 02/16/2025 19:59:32 02/17/20 25 02/16/2025 [UNIT Y] ANEUP LOIDY NIPT for detailed report, see pdf See PDF normal Not Available [facility] [address], [place], [address], 02/16/2025 19:59:32 02/22/20 25 02/21/2025 [UNIT Y] FLETCHER Rose sickle cell disease/beta -thalassemia /hemoglobino pathies carrier screen NEGATI VE normal Not Available [facility] [address], [place], [address], 02/21/2025 14:09:41 02/22/20 25 02/21/2025 [UNIT Y] FLETCHER Rose alpha-thalas semia carrier screen NEGATI VE normal Not Available [facility] [address], [place], [address], 02/21/2025 14:09:41 02/22/20 25 02/21/2025 [UNIT Y] FLETCHER Rose cystic fibrosis carrier screen NEGATI VE normal Not Available [facility] [address], [place], [address], 02/21/2025 14:09:41 02/22/20 25 02/21/2025 [UNIT Y] FLETCHER Rose spinal muscular atrophy carrier screen NEGATI VE 2 SMN1 copies , SNP not presen t normal Not Available [facility] [address], [place], [address], 02/21/2025 14:09:41 02/22/20 25 02/21/2025 [UNIT Y] FLETCHER Rose for detailed report, see pdf See PDF normal Not Available [facility] [address], [place], [address], 02/21/2025 14:09:41 02/11/20 25 02/10/2025 CT/GC AND TRICH OMONA S VAGIN KARLO (RRNA ), URINE chlamydia trachomatis, PCR Negati ve negati ve Not Available [facility] (Lab) [address], [place], [address], 02/11/2025 12:05:33 02/11/20 25 02/10/2025 CT/GC AND TRICH OMONA S VAGIN KARLO (RRNA ), URINE neisseria gonorrhoeae, PCR Negati ve negati ve Not Available [facility] (Lab) [address] [facility], [place], [address], 02/11/2025 12:05:33 02/11/20 25 02/10/2025 CT/GC AND TRICH OMONA S VAGIN KARLO (RRNA ), URINE trichomonas vaginalis ribosomal RNA (rrna) Negati ve negati ve Not Available [facility] (Lab) [address] [facility], [place], [address], 02/11/2025 12:05:33 02/11/20 25 02/10/2025 CBC W/DIF F WBC 8.7 10'3/ uL 3.5-10 .5 Not Available [facility] (Lab) [address] [facility], [place], [address], 02/11/2025 13:44:37 02/11/20 25 02/10/2025 CBC W/DIF F RBC 4.55 10'6/ uL (based on docume nted legal sex) 3.80-5 .20 Not Available [facility] (Lab) [address] [facility], [place], [address], 02/11/2025 13:44:37 02/11/20 25 02/10/2025 CBC W/DIF F HGB 13.7 g/dL (based on docume nted legal sex) 11.6-1 5.4 Not Available [facility] (Lab) [address] [facility], [place], [address], 02/11/2025 13:44:37 02/11/20 25 02/10/2025 CBC W/DIF F HCT 40.8 % (based on docume nted legal sex) 34.0-4 5.0 Not Available [facility] (Lab) [address] [facility], [place], [address], 02/11/2025 13:44:37 02/11/20 25 02/10/2025 CBC W/DIF F MCV 89.7 fL 80.0-9 9.0 Not Available [facility] (Lab) [address] [facility], [place], [address], 02/11/2025 13:44:37 02/11/20 25 02/10/2025 CBC W/DIF F MCH 30.1 pg 27.0-3 4.0 Not Available [facility] (Lab) [address] [facility], [place], [address], 02/11/2025 13:44:37 02/11/20 25 02/10/2025 CBC W/DIF F MCHC 33.6 g/dL 32.0-3 5.5 Not Available [facility] (Lab) [address] [facility], [place], [address], 02/11/2025 13:44:37 02/11/20 25 02/10/2025 CBC W/DIF F RDW 12.8 % 11.0-1 5.0 Not Available [facility] (Lab) [address] [facility], [place], [address], 02/11/2025 13:44:37 02/11/20 25 02/10/2025 CBC W/DIF F plt 125 10'3/ uL 150-40 0 low Not Available [facility] (Lab) [address] [facility], [place], [address], 02/11/2025 13:44:37 02/11/20 25 02/10/2025 CBC W/DIF F MPV 13.5 fL 8.8-12 .1 high Not Available [facility] (Lab) [address] [facility], [place], [address], 02/11/2025 13:44:37 02/11/20 25 02/10/2025 CBC W/DIF F NRBC's 0.0 % 0.0 Not Available [facility] (Lab) [address] [facility], [place], [address], 02/11/2025 13:44:37 02/11/20 25 02/10/2025 CBC W/DIF F absolute NRBCs 0.0 10'3/ uL no refere nce range establ ished Not Available [facility] (Lab) [address] [facility], [place], [address], 02/11/2025 13:44:37 02/11/20 25 02/10/2025 CBC W/DIF F neutrophils 76.5 % 34.0-7 3.0 high Not Available [facility] (Lab) [address] [facility], [place], [address], 02/11/2025 13:44:37 02/11/20 25 02/10/2025 CBC W/DIF F lymphocytes 14.4 % 15.0-5 0.0 low Not Available [facility] (Lab) [address] [facility], [place], [address], 02/11/2025 13:44:37 02/11/20 25 02/10/2025 CBC W/DIF F monocytes 8.3 % 1.0-15 .0 Not Available [facility] (Lab) [address] [facility], [place], [address], 02/11/2025 13:44:37 02/11/20 25 02/10/2025 CBC W/DIF F eosinophils 0.3 % 0.0-8. 0 Not Available [facility] (Lab) [address] [facility], [place], [address], 02/11/2025 13:44:37 02/11/20 25 02/10/2025 CBC W/DIF F basophils 0.3 % 0.0-2. 0 Not Available [facility] (Lab) [address] [place], [address], 02/11/2025 13:44:37 02/11/20 25 02/10/2025 CBC W/DIF [...] separ ately if prese nt. Not Available [facility] (Lab) [address] [facility], [place], [address], 02/11/2025 13:44:37 02/11/20 25 02/10/2025 CBC W/DIF F absolute neutrophils 6.6 10'3/ uL 1.5-8. 0 Not Available [facility] (Lab) [address] [facility], [place], [address], 02/11/2025 13:44:37 02/11/20 25 02/10/2025 CBC W/DIF F absolute lymphocytes 1.3 10'3/ uL 1.0-4. 0 Not Available [facility] (Lab) [address] [facility], [place], [address], 02/11/2025 13:44:37 02/11/20 25 02/10/2025 CBC W/DIF F absolute monocytes 0.7 10'3/ uL 0.2-1. 0 Not Available [facility] (Lab) [address] [facility], [place], [address], 02/11/2025 13:44:37 02/11/20 25 02/10/2025 CBC W/DIF F absolute eosinophils 0.0 10'3/ uL 0.0-0. 6 Not Available [facility] (Lab) [address] [facility], [place], [address], 02/11/2025 13:44:37 02/11/20 25 02/10/2025 CBC W/DIF F absolute basophils 0.0 10'3/ uL 0.0-0. 3 Not Available [facility] (Lab) [address] [place], [address], 02/11/2025 13:44:37 02/11/2002/10/2025 CBC W/DIF F absolute [...] calzada book. nm.or g/gen derx Not Available [facility] (Lab) [address], [place], [address], 02/11/2025 13:44:37 02/11/2002/10/2025 HIV 1/2 ANTIG EN/AN TIBOD Y, REFLE X CONFI RMATI ON HIV antigen/anti body Nonrea ctive nonrea ctive HIV-1 antig en and HIV-1 /HIV- 2 antib odies were not detec alfredo. No labor atory evide nce of HIV infec tion. Not Available [facility] (Lab) [address], [place], [address], 02/11/2025 13:44:38 02/11/20 25 02/10/2025 HEPAT ITIS B SURFA CE ANTIG EN hepatitis B surface antigen Non-re active non-re active This assay was perfo rmed using [employer] ratio n reage nts and test kits. Value s obtai evelyn with other assay metho ds or kits canno t be used inter collins eably . Not Available [facility] (Lab) [address], [place], [address], 02/11/2025 13:44:38 02/11/20 25 02/10/2025 HEPAT ITIS C ANTIB TIM SCREE N, REFLE X TO CONFI RMATI ON hepatitis C antibody Non-re active non-re active Antib odies to HCV Not Detec alfredo, does not exclu de the possi bilit y of expos ure to HCV. Not Available [facility] (Lab) [address], [place], [address], 02/11/2025 13:44:39 02/11/20 25 02/10/2025 RUBEL LA IGG ANTIB TIM, QUANT rubella antibodies, IgG Reacti ve reacti ve Not Available [facility] (Lab) [address], [place], [address], 02/11/2025 13:44:39 02/11/20 25 02/10/2025 RUBEL LA IGG ANTIB TIM, QUANT rubella antibodies, IgG quant 47.1 IU/mL >=10 Non-r eacti ve (Non- Immun e) <10 IU/mL React kvng (Immu ne) > or = 10 IU/mL Not Available [facility] (Lab) [address], [place], [address], 02/11/2025 13:44:39 02/11/20 25 02/10/2025 TYPE/ RH/SC REEN ABO/Rh type O POS Not Available [facility] (Lab) [address], [place], [address], 02/11/2025 13:44:40 02/11/20 25 02/10/2025 TYPE/ RH/SC REEN antibody screen NEG Not Available [facility] (Lab) [address], [place], [address], 02/11/2025 13:44:40 02/11/2002/10/2025 TYPE/ RH/SC REEN exp date 2024 23:59 Not Available [facility] (Lab) [address], [place], [address], 02/11/2025 13:44:40 02/11/20 25 02/10/2025 HEMOG LOBIN [...] >8.0% Actio n sugge sted Not Available [facility] (Lab) [address] [facility], [place], [address], 02/11/2025 13:44:40 02/11/20 25 02/10/2025 RPR SCREE N, REFLE X TITER /CONF IRMAT ION RPR qualitative Nonrea ctive nonrea ctive Not Available [facility] (Lab) [address], [place], [address], 02/11/2025 13:44:41 02/11/20 25 02/10/2025 drug scree n, urine Amphetamines : negati ve Not Available [facility] [address], [place], [address], 02/10/2025 12:55:20 02/11/20 25 02/10/2025 drug scree n, urine Cannabinoids : negati ve Not Available [facility] [address], [place], [address], 02/10/2025 12:55:20 02/11/20 25 02/10/2025 drug scree n, urine Cocaine: negati ve Not Available [facility] [address], [place], [address], 02/10/2025 12:55:20 02/11/20 25 02/10/2025 drug scree n, urine Opiates: negati ve Not Available [facility] [address], [place], [address], 02/10/2025 12:55:20 02/11/20 25 02/10/2025 drug scree n, urine Barbiturates : negati ve Not Available [facility] [address], [place], [address], 02/10/2025 12:55:20 02/11/20 25 02/10/2025 drug scree n, urine Benzodiazepi john: negati ve Not Available [facility] [address], [place], [address], 02/10/2025 12:55:20 03/10/20 25 03/10/2025 CULTU RE: URINE result report SEE RESULT S BELOW Test: Cultu re: Urine Speci men Sourc e: Urine Voide d Speci men Type: Urine Speci men Date: 2024 0938 Resul t Date: 20242 Resul t Statu s: Final resul t Abnor mal: No Resul ting Lab: [facility] [address] [facility] [address] Tel: CULTU RE ----- ----- ----- --- No growt h in 1 day (dete ction level of 10,00 0 colon ies / ml.) Not Available [facility] (Lab) [address], [place], [address], 03/11/2025 23:15:50 04/03/20 25 04/03/2025 CBC W/DIF F WBC 12.9 10'3/ uL 3.5-10 .5 high Not Available [facility] (Lab) [address] [place], [address], 04/04/2025 04:39:51 04/03/2004/03/2025 CBC W/DIF F RBC 4.33 10'6/ uL (based on docume nted legal sex) 3.80-5 .20 Not Available [facility] (Lab) [address] [place], [address], 04/04/2025 04:39:51 04/03/20 25 04/03/2025 CBC W/DIF F HGB 13.2 g/dL (based on docume nted legal sex) 11.6-1 5.4 Not Available [facility] (Lab) [address] [facility], [place], [address], 04/04/2025 04:39:51 04/03/2004/03/2025 CBC W/DIF F HCT 40.2 % (based on docume nted legal sex) 34.0-4 5.0 Not Available [facility] (Lab) [address] [facility], [place], [address], 04/04/2025 04:39:51 04/03/2004/03/2025 CBC W/DIF F MCV 92.8 fL 80.0-9 9.0 Not Available [facility] (Lab) [address] [facility], [place], [address], 04/04/2025 04:39:51 04/03/20 25 04/03/2025 CBC W/DIF F MCH 30.5 pg 27.0-3 4.0 Not Available [facility] (Lab) [address] [facility], [place], [address], 04/04/2025 04:39:51 04/03/2004/03/2025 CBC W/DIF F MCHC 32.8 g/dL 32.0-3 5.5 Not Available [facility] (Lab) [address] [facility], [place], [address], 04/04/2025 04:39:51 04/03/2004/03/2025 CBC W/DIF F RDW 13.0 % 11.0-1 5.0 Not Available [facility] (Lab) [address] [facility], [place], [address], 04/04/2025 04:39:51 04/03/20 25 04/03/2025 CBC W/DIF F plt 131 10'3/ uL 150-40 0 low Not Available [facility] (Lab) [address] [facility], [place], [address], 04/04/2025 04:39:51 04/03/2004/03/2025 CBC W/DIF F MPV 13.9 fL 8.8-12 .1 high Not Available [facility] (Lab) [address] [facility], [place], [address], 04/04/2025 04:39:51 04/03/2004/03/2025 CBC W/DIF F NRBC's 0.0 % 0.0 Not Available [facility] (Lab) [address] [facility], [place], [address], 04/04/2025 04:39:51 04/03/2004/03/2025 CBC W/DIF F absolute NRBCs 0.0 10'3/ uL no refere nce range establ ished Not Available [facility] (Lab) [address] [facility], [place], [address], 04/04/2025 04:39:51 04/03/2004/03/2025 CBC W/DIF F neutrophils 76.6 % 34.0-7 3.0 high Not Available [facility] (Lab) [address] [facility], [place], [address], 04/04/2025 04:39:51 04/03/2004/03/2025 CBC W/DIF F lymphocytes 14.2 % 15.0-5 0.0 low Not Available [facility] (Lab) [address] [facility], [place], [address], 04/04/2025 04:39:51 04/03/2004/03/2025 CBC W/DIF F monocytes 7.6 % 1.0-15 .0 Not Available [facility] (Lab) [address] [facility], [place], [address], 04/04/2025 04:39:51 04/03/2004/03/2025 CBC W/DIF F eosinophils 0.7 % 0.0-8. 0 Not Available [facility] (Lab) [address] [facility], [place], [address], 04/04/2025 04:39:51 04/03/2004/03/2025 CBC W/DIF F basophils 0.4 % 0.0-2. 0 Not Available [facility] (Lab) [address] [facility], [place], [address], 04/04/2025 04:39:51 04/03/20 25 04/03/2025 CBC W/DIF [...] separ ately if prese nt. Not Available [facility] (Lab) [address] [facility], [place], [address], 04/04/2025 04:39:51 04/03/20 25 04/03/2025 CBC W/DIF F absolute neutrophils 9.9 10'3/ uL 1.5-8. 0 high Not Available [facility] (Lab) [address] [facility], [place], [address], 04/04/2025 04:39:51 04/03/2004/03/2025 CBC W/DIF F absolute lymphocytes 1.8 10'3/ uL 1.0-4. 0 Not Available [facility] (Lab) [address] [facility], [place], [address], 04/04/2025 04:39:51 04/03/20 25 04/03/2025 CBC W/DIF F absolute monocytes 1.0 10'3/ uL 0.2-1. 0 Not Available [facility] (Lab) [address] [facility], [place], [address], 04/04/2025 04:39:51 04/03/2004/03/2025 CBC W/DIF F absolute eosinophils 0.1 10'3/ uL 0.0-0. 6 Not Available [facility] (Lab) [address] [facility], [place], [address], 04/04/2025 04:39:51 04/03/2004/03/2025 CBC W/DIF F absolute basophils 0.1 10'3/ uL 0.0-0. 3 Not Available [facility] (Lab) [address] [facility], [place], [address], 04/04/2025 04:39:51 04/03/2004/03/2025 CBC W/DIF F absolute [...] calzada book. nm.or g/gen derx Not Available [facility] (Lab) [address] [facility], [place], [address], 04/04/2025 04:39:51 05/02/2005/02/2025 CULTU RE: URINE result report SEE RESULT S BELOW Test: Cultu re: Urine Speci men Sourc e: Urine - Clean Catch Speci men Type: Urine Speci men Date: 1502 Resul t Date: 0404 Resul t Statu s: Final resul t Abnor mal: No Resul ting Lab: [facility] [address] [facility] [address] Tel: CULTU RE ----- ----- ----- --- No growt h in 1 day (dete ction level of 10,00 0 colon ies / ml.) Not Available [facility] (Lab) [address], [place], [address], 05/04/2025 05:09:17 05/30/2005/30/2025 CBC W/DIF F WBC 11.9 10'3/ uL 3.5-10 .5 high Not Available [facility] (Lab) [address], [place], [address], 05/31/2025 12:26:07 05/30/20 25 05/30/2025 CBC W/DIF F RBC 3.98 10'6/ uL (based on docume nted legal sex) 3.80-5 .20 Not Available [facility] (Lab) [address], [place], [address], 05/31/2025 12:26:07 05/30/20 25 05/30/2025 CBC W/DIF F HGB 12.4 g/dL (based on docume nted legal sex) 11.6-1 5.4 Not Available [facility] (Lab) [address], [place], [address], 05/31/2025 12:26:07 05/30/20 25 05/30/2025 CBC W/DIF F HCT 36.8 % (based on docume nted legal sex) 34.0-4 5.0 Not Available [facility] (Lab) [address], [place], [address], 05/31/2025 12:26:07 05/30/2005/30/2025 CBC W/DIF F MCV 92.5 fL 80.0-9 9.0 Not Available [facility] (Lab) [address] [place], [address], 05/31/2025 12:26:07 05/30/20 25 05/30/2025 CBC W/DIF F MCH 31.2 pg 27.0-3 4.0 Not Available [facility] (Lab) [address] [place], [address], 05/31/2025 12:26:07 05/30/20 25 05/30/2025 CBC W/DIF F MCHC 33.7 g/dL 32.0-3 5.5 Not Available [facility] (Lab) [address] [facility], [place], [address], 05/31/2025 12:26:07 05/30/20 25 05/30/2025 CBC W/DIF F RDW 13.4 % 11.0-1 5.0 Not Available [facility] (Lab) [address] [facility], [place], [address], 05/31/2025 12:26:07 05/30/20 25 05/30/2025 CBC W/DIF F plt 113 10'3/ uL 150-40 0 low Not Available [facility] (Lab) [address] [facility], [place], [address], 05/31/2025 12:26:07 05/30/20 25 05/30/2025 CBC W/DIF F MPV 13.8 fL 8.8-12 .1 high Not Available [facility] (Lab) [address] [facility], [place], [address], 05/31/2025 12:26:07 05/30/20 25 05/30/2025 CBC W/DIF F NRBC's 0.0 % 0.0 Not Available [facility] (Lab) [address] [facility], [place], [address], 05/31/2025 12:26:07 05/30/20 25 05/30/2025 CBC W/DIF F absolute NRBCs 0.0 10'3/ uL no refere nce range establ ished Not Available [facility] (Lab) [address] [facility], [place], [address], 05/31/2025 12:26:07 05/30/20 25 05/30/2025 CBC W/DIF F neutrophils 79.4 % 34.0-7 3.0 high Not Available [facility] (Lab) [address] [facility], [place], [address], 05/31/2025 12:26:07 05/30/20 25 05/30/2025 CBC W/DIF F lymphocytes 10.8 % 15.0-5 0.0 low Not Available [facility] (Lab) [address] [facility], [place], [address], 05/31/2025 12:26:07 05/30/20 25 05/30/2025 CBC W/DIF F monocytes 7.7 % 1.0-15 .0 Not Available [facility] (Lab) [address] [facility], [place], [address], 05/31/2025 12:26:07 05/30/20 25 05/30/2025 CBC W/DIF F eosinophils 0.8 % 0.0-8. 0 Not Available [facility] (Lab) [address] [facility], [place], [address], 05/31/2025 12:26:07 05/30/20 25 05/30/2025 CBC W/DIF F basophils 0.4 % 0.0-2. 0 Not Available [facility] (Lab) [address] [facility], [place], [address], 05/31/2025 12:26:07 05/30/20 25 05/30/2025 CBC W/DIF [...] separ ately if prese nt. Not Available [facility] (Lab) [address] [facility], [place], [address], 05/31/2025 12:26:07 05/30/20 25 05/30/2025 CBC W/DIF F absolute neutrophils 9.5 10'3/ uL 1.5-8. 0 high Not Available [facility] (Lab) [address] [facility], [place], [address], 05/31/2025 12:26:07 05/30/20 25 05/30/2025 CBC W/DIF F absolute lymphocytes 1.3 10'3/ uL 1.0-4. 0 Not Available [facility] (Lab) [address] [facility], [place], [address], 05/31/2025 12:26:07 05/30/20 25 05/30/2025 CBC W/DIF F absolute monocytes 0.9 10'3/ uL 0.2-1. 0 Not Available [facility] (Lab) [address] [facility], [place], [address], 05/31/2025 12:26:07 05/30/20 25 05/30/2025 CBC W/DIF F absolute eosinophils 0.1 10'3/ uL 0.0-0. 6 Not Available [facility] (Lab) [address] [facility], [place], [address], 05/31/2025 12:26:07 05/30/20 25 05/30/2025 CBC W/DIF F absolute basophils 0.1 10'3/ uL 0.0-0. 3 Not Available [facility] (Lab) [address] [place], [address], 05/31/2025 12:26:07 05/30/20 25 05/30/2025 CBC W/DIF [...] calzada book. nm.or g/gen derx Not Available [facility] (Lab) [address] [facility], [place], [address], 05/31/2025 12:26:07 05/30/20 25 05/30/2025 HIV 1/2 ANTIG EN/AN TIBOD Y, REFLE X CONFI RMATI ON HIV antigen/anti body Nonrea ctive nonrea ctive HIV-1 antig en and HIV-1 /HIV- 2 antib odies were not detec alfredo. No labor atory evide nce of HIV infec tion. Not Available [facility] (Lab) [address] [facility], [place], [address], 05/31/2025 12:26:07 05/30/20 25 05/30/2025 GTT - GESTA REGAN L ASHOK Rose, ACOG OB glucose, 1 hour screen 82 mg/dL 70-135 Not Available [facility] (Lab) [address] [facility], [place], [address], 05/31/2025 12:26:08 05/30/20 25 05/30/2025 RPR SCREE N, REFLE X TITER /CONF IRMAT ION RPR qualitative Nonrea ctive nonrea ctive Not Available [facility] (Lab) [address] [facility], [place], [address], 05/31/2025 12:26:08 02/11/20 25 02/10/2025 US, ovi soares, nucha l trans lucen cy No observ ation record ed. [facility] [address], [place], [address], 02/10/2025 18:38:42 02/11/20 25 02/10/2025 US, ovi soares, follo w-up No observ ation record ed. [facility] [address], [place], [address], 02/13/2025 09:20:03 04/03/20 25 04/03/2025 US, ovi soares, 2nd or 3rd trime ster No observ ation record ed. [email or web address] [address], [place], [address], 04/03/2025 18:43:20 04/03/20 25 04/03/2025 US, obste tric, 2nd or 3rd trime ster No observ ation record ed. [facility] 23 [address], [place], [address], 04/05/2025 17:47:52 04/21/20 25 04/21/2025 non-s tress test No observ ation record ed. [address] [facility] [place], [address], 04/24/2025 12:03:28 05/02/20 25 05/02/2025 US, obste tric, follo w-up No observ [facility]ion [facility] ed[facility] [address], [place], [address], 05/02/2025 12:58:26 05/02/20 25 05/02/2025 US, obste tric, follo w-up No observ ation record ed. ROBERT Autumn [address], [place], [address], 05/03/2025 18:13:01 05/29/20 25 05/29/2025 non-s tress test No observ ation record ed. [address] [facility], [place], [address], 05/31/2025 15:39:22 06/20/20 25 06/20/2025 imagi ng/di agnos tic resul t No observ ation record ed. [facility] [address] [place], [address], 06/20/2025 13:33:45 06/20/20 25 06/20/2025 US, obste tric, follo w-up No observ ation record ed. [email or web address] [facility] [address] [place] [address], [address], 06/27/2025 17:32:46 07/03/2007/03/2025 non-s tress test No observ ation record ed. [address], [address], 07/19/2025 15:34:42 07/03/20 25 07/03/2025 imagi ng/di agnos tic resul t No observ ation record ed. [address], [address], 07/03/2025 11:55:37 07/26/20 25 07/26/2025 imagi ng/di agnos tic resul t No observ ation record ed. [address], [address], 07/26/2025 18:39:01 07/26/20 25 07/26/2025 imagi ng/di agnos tic resul t No observ ation record ed. [facility] [address] [place] [address], [address], 07/26/2025 18:39:01 07/26/20 25 07/26/2025 imagi ng/di agnos tic resul t No observ ation record ed. [facility] [address] [place] [address], [address], 07/26/2025 18:39:01 08/14/20 25 08/14/2025 imagi ng/di agnos tic resul t No observ ation record ed. [facility] [address] [place] [address], [address], 08/14/2025 09:43:44 08/14/20 25 08/14/2025 imagi ng/di agnos tic resul t No observ ation record ed. [facility] [address] [place], [address], 08/14/2025 14:53:30 Result Notes None recorded. Problems Name Problem SNOMED Code Status Onset Date Resolution Date Notes Provider Name and Address Organization Details Recorded Time Anxiety 67917157 Active 2024 Kristen Ruffin [facility] 5 11:01:06 52787100 Active 2024 Aleah Bedolla [facility] 5 11:57:32 Platelet count below reference range 181953406 Active 2024 Referral faxed to [facility] 06/01 scheduled 06/20 0900 Level II us and consult Zoey Tarango [facility] 5 11:50:53 Problem Notes None recorded. Procedures Surgical History Date Name Laterality Status Provider Name and Address Organization Details Recorded Time 5 Date of Last Pap Smear completed Kristen Ruffin [facility] 01/13/2025 11:01:13 7 operative procedure on wrist completed Aleah Bedolla [facility] 02/10/2025 11:57:07 Imaging Results None recorded. [...] Address Organization Details Last Updated DateTime 06/13/2025 24789.51582 g 116/80 mm[Hg] Isabel Romero [facility] 06/13/2025 15:35:31 Social History Question Answer Notes LastModified by Organizat ion Details LastModified Time Tobacco Smoking Status Never Smoker Kristen sánchez, [facility] 01/13/2025 11:05:22 If You Are , What Was Your Level Of Alcohol Consumption Prior To ? Occasional [email or web address] Information not available 01/13/2025 Are You Blind Or Do You Have Difficulty Seeing? No Information n ot available 01/13/2025 What Is Your Level Of Caffeine Consumption? Occasional [email or web address] Information not available 01/13/2025 In The 14 Days Before Symptom Onset, Have You Had Close Contact With A Laboratory-confirm ed COVID-19 While That Case Was Ill? No [email or web address] Information n ot available 01/13/2025 In The 14 Days Before Symptom Onset, Have You Had Close Contact With A Person Who Is Under Investigation For COVID-19 While That Person Was Ill? No [email or web address] Information not available 01/13/2025 Have You Been To An Area Known To Be High Risk For COVID-19? No [email or web address] Information not available 01/13/2025 Are You Deaf Or Do You Have Serious Difficulty Hearing? No [email or web address] Information not available 01/13/2025 Do You Have Smoke And Carbon Monoxide Detectors In Your Home? Yes [email or web address] Information not available 01/13/2025 Do You Use Sunscreen Routinely? Yes [email or web address] Information not available 01/13/2025 Has Tobacco Cessation Counseling Been Provided? No Information not available 01/13/2025 Have You Used IV Drugs? No [email or web address] Information not available 01/13/2025 Do You Have Difficulty Walking Or Climbing Stairs? No [email or web address] Information not available 01/13/2025 Sex: Unknown Functional Status Question Answer Note LastModified by Organizat ion Details LastModified Time Do you use any illicit or recreational drugs? No [email or web address] Information not available 01/13/2025 Do you or have you ever used any other forms of tobacco or nicotine? Yes [email or web address] Information not available 01/13/2025 What is your level of alcohol consumption? None [email or web address] Information not available 01/13/2025 Are you able to walk independently without assistance or assistive devices? YESWOREST [email or web address] Information not available 01/13/2025 Are you able to care for yourself independently? Yes [email or web address] Information not available 01/13/2025 Do you have difficulty dressing, bathing, grooming, or toileting? No [email or web address] Information not available 01/13/2025 Do you or have you ever used e-cigarettes or vape? Former user of electronic cigarettes [email or web address] Information not available 01/13/2025 Mental Status None recorded. Family History Relationship Description Onset Age of this Age Resolved Age Notes LastModified by Organization Details LastModified Time Unspecified Relation Family history unknown [email or web address] Not available 2024 13:48:03 Paternal Grandfather Malignant neoplasm of prostate [email or web address] Not available 07/31 15:39:21 Maternal Grandfather Malignant neoplasm of lung [email or web address] Not available 01/13 11:03:40 Maternal Grandmother Malignant neoplasm of pancreas [email or web address] Not available 07/31 15:39:21 Maternal Aunt Malignant neoplasm of breast Not available 2024 13:48:03 Father Leukemia [email or web address] Not availa ble 08/10/2025 15:39:21 Mother Diabetes mellitus [email or web address] Not available 01/13 11:04:57 Medical History Condition Response Allergies (Food, seasonal, environmental ) N Other N Drug/Latex Allergies/Reactions N Breast Cancer N Blood Transfusion N Lung Disease N Dermatologic Disorders N Defects or Inherited Disease N Breast Problem N Gestational Diabetes N Hematologic disorders N Anesthesia Complications N History of STI N Deep Vein Thrombosis N Polycystic ovary syndrome N Anxiety Disorder Y Autoimmune disease N Arthritis N Polyps N Infertility N History of abnormal pap N Acid Reflux (GERD) N Cancer N [...] ICD10 Code Diagnosis IMO Codes Diagnosis Note [id number] JOLIE TOMLINSON MD [facility] [address] [address] 05/30/2025 09:40:10 05/30/2025 10:26:07 Thrombocytopenic disorder 636693568 D69.6 83900 - plt 125>131- repeat today Gestation period, 28 weeks 14531530 Z3A.28 [id number] JOLIE TOMLINSON MD [facility] [address] [address] 06/13/2025 15:20:18 06/13/2025 16:44:44 Platelet count below reference range 724340946 D69.6 95758307 - plt 125>131>11 3- MFM consult Gestation period, 30 weeks 06638057 Z3A.30 [id number] Health Concerns Section Related Observation LastModified by Organization Detai ls LastModified Time None Recorded Concern Status LastModified by Organization Details LastModified Time None Recorded Payers Encounter Date Sequence Insurance Name Policy Number Policy Marie Covered Member ID Marie Member ID Guarantor Name 06/13/2025 2 [place] [employer] Gabby Jose [id number] Kya Angulo 06/13/2025 1 [place] [id number] Kya Angulo [id number] Kya Angulo Notes Date Note Type Note Provider Name and Address Organization Details Recorded Time 06/13/2025 text/html Generic HPI TemplateReported by Patient JOLIE TOMLINSON MD [address], [place], [address], [facility] 06/13/2025 16:44:32 OBGyn Episode Ob Episode Information Episode Created Date Number of Fetuses Patient Bloodtype Patient rh Status Prepregnancy Weight lbs Domestic Partner Domestic Partner Phone Father Name Delinquency Prevention Officer Status 02/11/20 25 1 O Positive 150 Jovany Echeverria OPEN Fetus Data First Name Last Name Admitted to NICU Weight (g) Sex Living Outcome Pediatric Complications Fetus ID Race Codes Race Delivery Type [id number] Problems Problem Notes RSV vaccine received 07/04/25 . Problem Name Start Date End Date Resolution Snomed Code Not e Platelet count below reference range 06/01/2025 [id number] Referral fax ed to [facility] 06/01 scheduled 06/20 0900 Level II us [...] Date Ultra Sound Latest Days Gestation 0 [email or web address] 02/10/2025 08/21/20 25 0 Pre-henna Flowsheet Flowsheet Date 02/10/2025 Kirkland Score Blood Edema Fundus Height Fundus Units Glucose Ketones Leukocytes Nitrite Labor Signs Protein Cervic Dilation Cervic Effacement Cervic Station Type Weight in lbs Pre/Post Dialysis Refused Weight 153.590003170904 BP Diastolic BP Location Tested BP Systolic BP Type 77 L arm 122 sitting Fetus Heart Rate Present A Present Fetus Movement Comments Patient presents to [facility] care. otherwise uncomplicated. No bleeding or [...] Weight in lbs Pre/Post Dialysis Refused Weight 156.428432098485 BP Diastolic BP Location Tested BP Systolic [...] Weight in lbs Pre/Post Dialysis Refused Weight 160.171260836235 BP Diastolic BP Location Tested BP Systolic [...] Weight in lbs Pre/Post Dialysis Refused Weight 165.124961568252 BP Diastolic BP Location Tested BP Systolic [...] Type Weight in lbs Pre/Post Dialysis Refused 176.244075845735 BP Diastolic BP Location Tested BP Systolic BP Type 78 L arm 118 sitting Fetus Heart Rate Present A 150 Fetus Movement A Yes Comments Had an episode of DFM yester day, went to [place] and had negative workup. No cramping or bleeding. GCT and labs today, will draw CBC as well. Discussed Tdap, RSV, and flu vaccines. RTC 2 weeks. Flowsheet Date 06/13/2025 Kirkland Score Blood Edema Fundus Height Fundus Units Glucose Ketones Leukocytes Nitrite Labor Signs Protein Cervic Dilation Cervic Effacement Cervic Station Type Weight in lbs Pre/Post Dialysis Refused 181.092536361104 BP Diastolic BP Location Tested BP Systolic [...] Weight in lbs Pre/Post Dialysis Refused Weight 178.716812123956 BP Diastolic BP Location Tested BP Systolic BP Type 78 L arm 112 sitting Fetus Heart Rate Present A 140 Fetus Movement A Yes Comments Good movement. No cram ping or bleeding. Saw MFM, recommend platelet counts every visit. Microwave Engineer appointment next week to determine if autoimmune vs gestational. EFW 92%, AC 93%; discussed 39 week induction, plan for 12/15 PM. Preadmission scheduled. RSV vaccine discussed. RTC 2 weeks. Flowsheet Date 07/12/2025 Kirkland Score Blood Edema Fundus Height Fundus Units Glucose Ketones Leukocytes Nitrite Labor Signs Protein Cervic Dilation Cervic Effacement Cervic Station Type Weight in lbs Pre/Post Dialysis Refused Weight 185.670891400943 BP Diastolic BP Location Tested BP Systolic [...] Weight in lbs Pre/Post Dialysis Refused Weight 186.753942917183 BP Diastolic BP Location Tested BP Systolic [...] Weight in lbs Pre/Post Dialysis Refused Weight 187.957654912946 BP Diastolic BP Location Tested BP Systolic [...] Weight in lbs Pre/Post Dialysis Refused Weight 189.213911995560 BP Diastolic BP Location Tested BP Systolic [...]
--- OUTSIDE RECORDS SUMMARY | 2025-08-14 17:57 | XMS_ITS | Data Portability ---
Author Organization [facility] Address [address] [place] [address] Care Team Providers [employer] Director Name Role Phone YESSISHERYL Primary Care Provider Assessment No assessment recorded. Plan of Treatment Reminders Order Date Submit Date Provider Last Modified By Organization Details Last Modified Time Details Appointments INDUCTION 2024 04:00P Cosmo TOMLINSON MD Not available Not available Not available Lab CBC w/ auto diff 2024 025 [facility] (Lab), [address] [place], [address], 08/11/2025 09:03:58 vitamin B12 + folate, serum or blood 2024 025 [facility] (Lab), [address] [place], [address], 08/08/2025 19:28:08 intrinsic factor Ab, serum 2024 025 [facility] (Lab), [address] [place], [address], 08/08/2025 19:28:08 unlisted lab - parietal cell antibodie s, IgG, serum 2024 025 [facility] (Lab), [address] [place], [address], 08/08/2025 19:28:09 CBC 2024 025 [facility] (Lab), [address], [place], [address], 08/08/2025 19:28:07 iron + TIBC + ferritin, serum 2024 025 [facility] (Lab), [address] [facility], [place], [address], 08/08/2025 19:28:08 CBC w/ auto diff 2024 025 [facility] (Lab), [address] [facility], [place], [address], 2025 04:12:09 Referral None recorded. Procedures None recorded. Surgeries None recorded. Imaging None recorded. Medication Orders None recorded. Patient TargetsNo targets recorded. Patient InstructionsNo instructions recorded. Reason for Referral None Reported. Results Created Date Observation Date Name Description Value Unit Range Abnormal Flag Note LastModifiedBy Organization Detail LastModifiedTime 06/30/2006/30/2025 CBC W/DIF F WBC 11.6 10'3/ uL 3.5-10 .5 high Not Available [facility] (Lab) [address] [facility], [place], [address], 07/01/2025 02:43:32 06/30/20 25 06/30/2025 CBC W/DIF F RBC 3.97 10'6/ uL (based on docume nted legal sex) 3.80-5 .20 Not Available [facility] (Lab) [address] [facility], [place], [address], 07/01/2025 02:43:32 06/30/20 25 06/30/2025 CBC W/DIF F HGB 12.4 g/dL (based on docume nted legal sex) 11.6-1 5.4 Not Available [facility] (Lab) [address] [facility], [place], [address], 07/01/2025 02:43:32 06/30/20 25 06/30/2025 CBC W/DIF F HCT 35.3 % (based on docume nted legal sex) 34.0-4 5.0 Not Available [facility] (Lab) [address], [place], [address], 07/01/2025 02:43:32 06/30/20 25 06/30/2025 CBC W/DIF F MCV 88.9 fL 80.0-9 9.0 Not Available [facility] (Lab) [address], [place], [address], 07/01/2025 02:43:32 06/30/20 25 06/30/2025 CBC W/DIF F MCH 31.2 pg 27.0-3 4.0 Not Available [facility] (Lab) [address], [place], [address], 07/01/2025 02:43:32 06/30/20 25 06/30/2025 CBC W/DIF F MCHC 35.1 g/dL 32.0-3 5.5 Not Available [facility] (Lab) [address], [place], [address], 07/01/2025 02:43:32 06/30/20 25 06/30/2025 CBC W/DIF F RDW 13.2 % 11.0-1 5.0 Not Available [facility] (Lab) [address], [place], [address], 07/01/2025 02:43:32 06/30/20 25 06/30/2025 CBC W/DIF F plt 106 10'3/ uL 150-40 0 low Not Available [facility] (Lab) [address], [place], [address], 07/01/2025 02:43:32 06/30/20 25 06/30/2025 CBC W/DIF F MPV 13.2 fL 8.8-12 .1 high Not Available [facility] (Lab) [address], [place], [address], 07/01/2025 02:43:32 06/30/20 25 06/30/2025 CBC W/DIF F NRBC's 0.0 % 0.0 Not Available [facility] (Lab) [address] [facility], [place], [address], 07/01/2025 02:43:32 06/30/20 25 06/30/2025 CBC W/DIF F absolute NRBCs 0.0 10'3/ uL no refere nce range establ ished Not Available [facility] (Lab) [address] [facility], [place], [address], 07/01/2025 02:43:32 06/30/20 25 06/30/2025 CBC W/DIF F neutrophils 77.2 % 34.0-7 3.0 high Not Available [facility] (Lab) [address] [facility], [place], [address], 07/01/2025 02:43:32 06/30/20 25 06/30/2025 CBC W/DIF F lymphocytes 13.2 % 15.0-5 0.0 low Not Available [facility] (Lab) [address] [facility], [place], [address], 07/01/2025 02:43:32 06/30/20 25 06/30/2025 CBC W/DIF F monocytes 7.5 % 1.0-15 .0 Not Available [facility] (Lab) [address] [facility], [place], [address], 07/01/2025 02:43:32 06/30/20 25 06/30/2025 CBC W/DIF F eosinophils 0.9 % 0.0-8. 0 Not Available [facility] (Lab) [address] [facility], [place], [address], 07/01/2025 02:43:32 06/30/20 25 06/30/2025 CBC W/DIF F basophils 0.4 % 0.0-2. 0 Not Available [facility] (Lab) [address], [place], [address], 07/01/2025 02:43:32 06/30/20 25 06/30/2025 CBC W/DIF [...] separ ately if prese nt. Not Available [facility] (Lab) [address], [place], [address], 07/01/2025 02:43:32 06/30/20 25 06/30/2025 CBC W/DIF F absolute neutrophils 8.9 10'3/ uL 1.5-8. 0 high Not Available [facility] (Lab) [address], [place], [address], 07/01/2025 02:43:32 06/30/20 25 06/30/2025 CBC W/DIF F absolute lymphocytes 1.5 10'3/ uL 1.0-4. 0 Not Available [facility] (Lab) [address] [facility], [place], [address], 07/01/2025 02:43:32 06/30/20 25 06/30/2025 CBC W/DIF F absolute monocytes 0.9 10'3/ uL 0.2-1. 0 Not Available [facility] (Lab) [address], [place], [address], 07/01/2025 02:43:32 06/30/20 25 06/30/2025 CBC W/DIF F absolute eosinophils 0.1 10'3/ uL 0.0-0. 6 Not Available [facility] (Lab) [address], [place], [address], 07/01/2025 02:43:32 06/30/20 25 06/30/2025 CBC W/DIF F absolute basophils 0.1 10'3/ uL 0.0-0. 3 Not Available [facility] (Lab) [address], [place], [address], 07/01/2025 02:43:32 06/30/2006/30/2025 CBC W/DIF F absolute immature granulocytes 0.1 10'3/ uL 0.00-0 .10 Refer ence range s for nonbi nary/ inter sex or unspe cifie d gende r patie nts have not been estab lishe d. [facility]as [facility] for range s estab lishe d for cisge nder patie nts and evalu ate in the clini randal kiera xt of the indiv idual patie nt: https ://misael calzada book. nm.or g/gen derx Not Available [facility] (Lab) [address], [place], [address], 07/01/2025 02:43:32 07/12/2007/12/2025 CBC W/DIF F WBC 13.2 10'3/ uL 3.5-10 .5 high Not Available [facility] (Lab) [address] [place], [address], 07/13/2025 05:59:18 07/12/20 25 07/12/2025 CBC W/DIF F RBC 3.94 10'6/ uL (based on docume nted legal sex) 3.80-5 .20 Not Available [facility] (Lab) [address], [place], [address], 07/13/2025 05:59:18 07/12/20 25 07/12/2025 CBC W/DIF F HGB 11.9 g/dL (based on docume nted legal sex) 11.6-1 5.4 Not Available [facility] (Lab) [address], [place], [address], 07/13/2025 05:59:18 07/12/20 25 07/12/2025 CBC W/DIF F HCT 34.9 % (based on docume nted legal sex) 34.0-4 5.0 Not Available [facility] (Lab) [address], [place], [address], 07/13/2025 05:59:18 07/12/20 25 07/12/2025 CBC W/DIF F MCV 88.6 fL 80.0-9 9.0 Not Available [facility] (Lab) [address], [place], [address], 07/13/2025 05:59:18 07/12/20 25 07/12/2025 CBC W/DIF F MCH 30.2 pg 27.0-3 4.0 Not Available [facility] (Lab) [address], [place], [address], 07/13/2025 05:59:18 07/12/20 25 07/12/2025 CBC W/DIF F MCHC 34.1 g/dL 32.0-3 5.5 Not Available [facility] (Lab) [address], [place], [address], 07/13/2025 05:59:18 07/12/20 25 07/12/2025 CBC W/DIF F RDW 13.0 % 11.0-1 5.0 Not Available [facility] (Lab) [address], [place], [address], 07/13/2025 05:59:18 07/12/20 25 07/12/2025 CBC W/DIF F plt 110 10'3/ uL 150-40 0 low Not Available [facility] (Lab) [address], [place], [address], 07/13/2025 05:59:18 07/12/20 25 07/12/2025 CBC W/DIF F MPV 12.9 fL 8.8-12 .1 high Not Available [facility] (Lab) [address] [place], [address], 07/13/2025 05:59:18 07/12/20 25 07/12/2025 CBC W/DIF F NRBC's 0.0 % 0.0 Not Available [facility] (Lab) [address] [facility], [place], [address], 07/13/2025 05:59:18 07/12/20 25 07/12/2025 CBC W/DIF F absolute NRBCs 0.0 10'3/ uL no refere nce range establ ished Not Available [facility] (Lab) [address] [facility], [place], [address], 07/13/2025 05:59:18 07/12/20 25 07/12/2025 CBC W/DIF F neutrophils 75.1 % 34.0-7 3.0 high Not Available [facility] (Lab) [address], [place], [address], 07/13/2025 05:59:18 07/12/20 25 07/12/2025 CBC W/DIF F lymphocytes 12.6 % 15.0-5 0.0 low Not Available [facility] (Lab) [address] [facility], [place], [address], 07/13/2025 05:59:18 07/12/20 25 07/12/2025 CBC W/DIF F monocytes 9.7 % 1.0-15 .0 Not Available [facility] (Lab) [address], [place], [address], 07/13/2025 05:59:18 07/12/20 25 07/12/2025 CBC W/DIF F eosinophils 0.9 % 0.0-8. 0 Not Available [facility] (Lab) [address] [facility], [place], [address], 07/13/2025 05:59:18 07/12/20 25 07/12/2025 CBC W/DIF F basophils 0.5 % 0.0-2. 0 Not Available [facility] (Lab) [address] [place], [address], 07/13/2025 05:59:18 07/12/20 25 07/12/2025 CBC W/DIF [...] separ ately if prese nt. Not Available [facility] (Lab) [address] [place], [address], 07/13/2025 05:59:18 07/12/20 25 07/12/2025 CBC W/DIF F absolute neutrophils 9.9 10'3/ uL 1.5-8. 0 high Not Available [facility] (Lab) [address] [place], [address], 07/13/2025 05:59:18 07/12/20 25 07/12/2025 CBC W/DIF F absolute lymphocytes 1.7 10'3/ uL 1.0-4. 0 Not Available [facility] (Lab) [address] [place], [address], 07/13/2025 05:59:18 07/12/20 25 07/12/2025 CBC W/DIF F absolute monocytes 1.3 10'3/ uL 0.2-1. 0 high Not Available [facility] (Lab) [address], [place], [address], 07/13/2025 05:59:18 07/12/20 25 07/12/2025 CBC W/DIF F absolute eosinophils 0.1 10'3/ uL 0.0-0. 6 Not Available [facility] (Lab) [address], [place], [address], 07/13/2025 05:59:18 07/12/20 25 07/12/2025 CBC W/DIF F absolute basophils 0.1 10'3/ uL 0.0-0. 3 Not Available [facility] (Lab) [address] [place], [address], 07/13/2025 05:59:18 07/12/2007/12/2025 CBC W/DIF F absolute immature granulocytes 0.2 10'3/ uL 0.00-0 .10 high Refer ence range s for nonbi nary/ inter sex or unspe cifie d gende r patie nts have not been estab lishe d. [facility]as [facility] for range s estab lishe d for cisge nder patie nts and evalu ate in the clini randal kiera xt of the indiv idual patie nt: https ://la elsi book. nm.or g/gen derx Not Available [facility] (Lab) [address], [place], [address], 07/13/2025 05:59:18 07/24/2007/24/2025 CBC W/DIF F WBC 14.4 10'3/ uL 3.5-10 .5 high Not Available [facility] (Lab) [address] [facility], [place], [address], 2025 04:12:09 07/24/20 25 07/24/2025 CBC W/DIF F RBC 4.15 10'6/ uL (based on docume nted legal sex) 3.80-5 .20 Not Available [facility] (Lab) [address], [place], [address], 2025 04:12:09 07/24/20 25 07/24/2025 CBC W/DIF F HGB 12.8 g/dL (based on docume nted legal sex) 11.6-1 5.4 Not Available [facility] (Lab) [address] [place], [address], 2025 04:12:09 07/24/20 25 07/24/2025 CBC W/DIF F HCT 37.2 % (based on docume nted legal sex) 34.0-4 5.0 Not Available [facility] (Lab) [address] [facility], [place], [address], 2025 04:12:09 07/24/20 25 07/24/2025 CBC W/DIF F MCV 89.6 fL 80.0-9 9.0 Not Available [facility] (Lab) [address] [facility], [place], [address], 2025 04:12:09 07/24/20 25 07/24/2025 CBC W/DIF F MCH 30.8 pg 27.0-3 4.0 Not Available [facility] (Lab) [address] [facility], [place], [address], 2025 04:12:09 07/24/20 25 07/24/2025 CBC W/DIF F MCHC 34.4 g/dL 32.0-3 5.5 Not Available [facility] (Lab) [address] [facility], [place], [address], 2025 04:12:09 07/24/20 25 07/24/2025 CBC W/DIF F RDW 14.1 % 11.0-1 5.0 Not Available [facility] (Lab) [address] [facility], [place], [address], 2025 04:12:09 07/24/2007/24/2025 CBC W/DIF F plt 115 10'3/ uL 150-40 0 low Not Available [facility] (Lab) [address] [facility], [place], [address], 2025 04:12:09 07/24/20 25 07/24/2025 CBC W/DIF F MPV 13.3 fL 8.8-12 .1 high Not Available [facility] (Lab) [address] [facility], [place], [address], 2025 04:12:09 07/24/20 25 07/24/2025 CBC W/DIF F NRBC's 0.0 % 0.0 Not Available [facility] (Lab) [address] [facility], [place], [address], 2025 04:12:09 07/24/20 25 07/24/2025 CBC W/DIF F absolute NRBCs 0.0 10'3/ uL no refere nce range establ ished Not Available [facility] (Lab) [address] [facility], [place], [address], 2025 04:12:09 07/24/20 25 07/24/2025 CBC W/DIF F neutrophils 75.6 % 34.0-7 3.0 high Not Available [facility] (Lab) [address] [facility], [place], [address], 2025 04:12:09 07/24/20 25 07/24/2025 CBC W/DIF F lymphocytes 12.3 % 15.0-5 0.0 low Not Available [facility] (Lab) [address] [facility], [place], [address], 2025 04:12:09 07/24/20 25 07/24/2025 CBC W/DIF F monocytes 9.3 % 1.0-15 .0 Not Available [facility] (Lab) [address] [place], [address], 2025 04:12:09 07/24/20 25 07/24/2025 CBC W/DIF F eosinophils 0.6 % 0.0-8. 0 Not Available [facility] (Lab) [address] [place], [address], 2025 04:12:09 07/24/20 25 07/24/2025 CBC W/DIF F basophils 0.5 % 0.0-2. 0 Not Available [facility] (Lab) [address] [place], [address], 2025 04:12:09 07/24/20 25 07/24/2025 CBC W/DIF [...] separ ately if prese nt. Not Available [facility] (Lab) [address] [place], [address], 2025 04:12:09 07/24/20 25 07/24/2025 CBC W/DIF F absolute neutrophils 10.8 10'3/ uL 1.5-8. 0 high Not Available [facility] (Lab) [address], [place], [address], 2025 04:12:09 07/24/20 25 07/24/2025 CBC W/DIF F absolute lymphocytes 1.8 10'3/ uL 1.0-4. 0 Not Available [facility] (Lab) [address] [facility], [place], [address], 2025 04:12:09 07/24/20 25 07/24/2025 CBC W/DIF F absolute monocytes 1.3 10'3/ uL 0.2-1. 0 high Not Available [facility] (Lab) [address] [facility], [place], [address], 2025 04:12:09 07/24/20 25 07/24/2025 CBC W/DIF F absolute eosinophils 0.1 10'3/ uL 0.0-0. 6 Not Available [facility] (Lab) [address], [place], [address], 2025 04:12:09 07/24/20 25 07/24/2025 CBC W/DIF F absolute basophils 0.1 10'3/ uL 0.0-0. 3 Not Available [facility] (Lab) [address] [place], [address], 2025 04:12:09 07/24/20 25 07/24/2025 CBC W/DIF [...] calzada book. nm.or g/gen derx Not Available [facility] (Lab) [address], [place], [address], 2025 04:12:09 07/24/2007/24/2025 CULTU RE: GROUP B [...] Lab: [facility] [address] [facility] [address] Tel: CULTU RE ----- ----- ----- --- No Group B strep isola alfredo at 2 days (lisa ctive broth enhan cemen t) Not Available [facility] (Lab) [address], [place], [address], 07/27/2025 18:44:14 08/04/20 25 08/04/2025 CBC (HEMO GRAM) WBC 12.0 10'3/ uL 3.5-10 .5 high Not Available [facility] (Lab) [address] [facility], [place], [address], 08/08/2025 19:28:07 08/04/20 25 08/04/2025 CBC (HEMO GRAM) RBC 4.39 10'6/ uL (based on docume nted legal sex) 3.80-5 .20 Not Available [facility] (Lab) [address] [facility], [place], [address], 08/08/2025 19:28:07 08/04/20 25 08/04/2025 CBC (HEMO GRAM) HGB 13.4 g/dL (based on docume nted legal sex) 11.6-1 5.4 Not Available [facility] (Lab) [address] [facility], [place], [address], 08/08/2025 19:28:07 08/04/20 25 08/04/2025 CBC (HEMO GRAM) HCT 39.3 % (based on docume nted legal sex) 34.0-4 5.0 Not Available [facility] (Lab) [address] [place], [address], 08/08/2025 19:28:07 08/04/20 25 08/04/2025 CBC (HEMO GRAM) MCV 89.5 fL 80.0-9 9.0 Not Available [facility] (Lab) [address] [place], [address], 08/08/2025 19:28:07 08/04/20 25 08/04/2025 CBC (HEMO GRAM) MCH 30.5 pg 27.0-3 4.0 Not Available [facility] (Lab) [address] [place], [address], 08/08/2025 19:28:07 08/04/20 25 08/04/2025 CBC (HEMO GRAM) MCHC 34.1 g/dL 32.0-3 5.5 Not Available [facility] (Lab) [address] [place], [address], 08/08/2025 19:28:07 08/04/20 25 08/04/2025 CBC (HEMO GRAM) RDW 13.6 % 11.0-1 5.0 Not Available [facility] (Lab) [address], [place], [address], 08/08/2025 19:28:07 08/04/20 25 08/04/2025 CBC (HEMO GRAM) plt 113 10'3/ uL 150-40 0 low Not Available [facility] (Lab) [address], [place], [address], 08/08/2025 19:28:07 08/04/20 25 08/04/2025 CBC (HEMO GRAM) MPV 13.3 fL 8.8-12 .1 high Not Available [facility] (Lab) [address], [place], [address], 08/08/2025 19:28:07 08/04/20 25 08/04/2025 CBC (HEMO GRAM) NRBC's 0.0 % 0.0 Not Available [facility] (Lab) [address] [facility], [place], [address], 08/08/2025 19:28:07 08/04/20 25 08/04/2025 CBC (HEMO [...] calzada book. nm.or g/gen derx Not Available [facility] (Lab) [address], [place], [address], 08/08/2025 19:28:07 08/04/20 25 08/04/2025 MELONY TIN / IRON / TRANS MELONY N / TIBC iron 110 ug/dL 40-170 Not Available [facility] (Lab) [address] [facility], [place], [address], 08/08/2025 19:28:08 08/04/20 25 08/04/2025 MELONY TIN / IRON / TRANS MELONY N / TIBC transferrin 409 mg/dL 200-36 0 high Not Available [facility] (Lab) [address] [facility], [place], [address], 08/08/2025 19:28:08 08/04/20 25 08/04/2025 MELONY TIN / IRON / TRANS MELONY N / TIBC ferritin 115.4 NG/mL 8.0-25 2.0 Not Available [facility] (Lab) [address] [facility], [place], [address], 08/08/2025 19:28:08 08/04/20 25 08/04/2025 MELONY TIN / IRON / TRANS MELONY N / TIBC TIBC 573 ug/dL 250-45 0 high Not Available [facility] (Lab) [address] [facility], [place], [address], 08/08/2025 19:28:08 08/04/20 25 08/04/2025 MELONY TIN / IRON / TRANS MELONY N / TIBC iron saturation 19 % 20-55 low Not Available [facility] (Lab) [address] [place], [address], 08/08/2025 19:28:08 08/04/20 25 08/04/2025 VITAM IN B12 / FOLAT E PANEL vitamin B12 423 pg/mL 180-91 4 Vianey l Range : 180-9 14 pg/mL . Indet ermin ate Range : 145-1 80 pg/mL . Defic ient Range : <=145 pg/mL . Not Available [facility] (Lab) [address] [place], [address], 08/08/2025 19:28:08 08/04/20 25 08/04/2025 VITAM IN B12 / FOLAT E PANEL folate, serum >22.3 NG/mL >=6.[address] [facility] (Lab) [address] [facility], [place], [address], 08/08/2025 19:28:08 08/04/20 25 08/04/2025 INTRI NSIC FACTO R BLOCK ING ANTIB TIM, SERUM intrinsic factor blocking Ab, S Negati ve negati ve Not Available [facility] (Lab) [address] [facility], [place], [address], 08/08/2025 19:28:08 08/04/20 25 08/04/2025 INTRI NSIC FACTO R BLOCK ING ANTIB TIM, SERUM comment SEE COMMEN TS Intri nsic Facto r Block ing Antib tim (IFBA ) antib odies are absen t in appro ximat ignacio 50% of indiv idual s with bradlyni hay bossmi michell (ZEV). The absen ce of eleva alfredo IFBA antib odies does not rule out the prese nce of PA; furth er studi es such as gastr in testi ng may be indic ated. Test Perfo rmed by: [facility] [place] [address], [place] [address] Lab Direc tor: Lawanda juárez Ph.D. ; CLIA# [id number] Not Available [facility] (Lab) [address] [facility], [place], [address], 08/08/2025 19:28:08 08/04/20 25 08/04/2025 PARIE LUIS CELL ANTIB ODIES , IGG, SERUM parietal cell Ab, IgG, S <10.0 U <=20.0 (negat kvng) Test Perfo rmed by: [facility] [place] [address], [place] [address] Lab Direc tor: Lawanda juárez Ph.D. ; CLIA# [id number] Not Available [facility] (Lab) [address], [place], [address], 08/08/2025 19:28:09 08/04/20 25 08/04/2025 CBC W/DIF F CBC and differential CANCEL LED No Speci men Recei carin Not Available [facility] (Lab) [address], [place], [address], 08/10/2025 17:13:18 08/04/20 25 08/04/2025 VITAM IN B12 / FOLAT E PANEL vitamin B12/folate panel CANCEL LED No Speci men Recei carin Not Available [facility] (Lab) [address], [place], [address], 08/10/2025 17:13:19 08/04/20 25 08/04/2025 CBC (HEMO GRAM) CBC (hemogram) CANCEL LED No Speci men Recei carin Not Available [facility] (Lab) [address], [place], [address], 08/10/2025 17:14:29 08/04/20 25 08/04/2025 MELONY TIN / IRON / TRANS MELONY N / TIBC ferritin / iron / transferrin / TIBC (nmh/lfh/gl/ cdh/kh/vw/nw r) CANCEL LED No Speci men Recei carin Not Available [facility] (Lab) [address], [place], [address], 08/10/2025 17:25:30 08/10/20 25 08/10/2025 CBC W/DIF F WBC 12.2 10'3/ uL 3.5-10 .5 high Not Available [facility] (Lab) [address], [place], [address], 08/11/2025 09:03:58 08/10/20 25 08/10/2025 CBC W/DIF F RBC 4.49 10'6/ uL (based on docume nted legal sex) 3.80-5 .20 Not Available [facility] (Lab) [address], [place], [address], 08/11/2025 09:03:58 08/10/20 25 08/10/2025 CBC W/DIF F HGB 13.6 g/dL (based on docume nted legal sex) 11.6-1 5.4 Not Available [facility] (Lab) [address], [place], [address], 08/11/2025 09:03:58 08/10/20 25 08/10/2025 CBC W/DIF F HCT 39.9 % (based on docume nted legal sex) 34.0-4 5.0 Not Available [facility] (Lab) [address], [place], [address], 08/11/2025 09:03:58 08/10/20 25 08/10/2025 CBC W/DIF F MCV 88.9 fL 80.0-9 9.0 Not Available [facility] (Lab) [address], [place], [address], 08/11/2025 09:03:58 08/10/20 25 08/10/2025 CBC W/DIF F MCH 30.3 pg 27.0-3 4.0 Not Available [facility] (Lab) [address], [place], [address], 08/11/2025 09:03:58 08/10/20 25 08/10/2025 CBC W/DIF F MCHC 34.1 g/dL 32.0-3 5.5 Not Available [facility] (Lab) [address], [place], [address], 08/11/2025 09:03:58 08/10/20 25 08/10/2025 CBC W/DIF F RDW 14.1 % 11.0-1 5.0 Not Available [facility] (Lab) [address] [place], [address], 08/11/2025 09:03:58 08/10/20 25 08/10/2025 CBC W/DIF F plt 117 10'3/ uL 150-40 0 low Not Available [facility] (Lab) [address], [place], [address], 08/11/2025 09:03:58 08/10/20 25 08/10/2025 CBC W/DIF F MPV 14.0 fL 8.8-12 .1 high Not Available [facility] (Lab) [address], [place], [address], 08/11/2025 09:03:58 08/10/20 25 08/10/2025 CBC W/DIF F NRBC's 0.0 % 0.0 Not Available [facility] (Lab) [address] [facility], [place], [address], 08/11/2025 09:03:58 08/10/20 25 08/10/2025 CBC W/DIF F absolute NRBCs 0.0 10'3/ uL no refere nce range establ ished Not Available [facility] (Lab) [address], [place], [address], 08/11/2025 09:03:58 08/10/20 25 08/10/2025 CBC W/DIF F neutrophils 75.8 % 34.0-7 3.0 high Not Available [facility] [facility] [address], [place], [address], 08/11/2025 09:03:58 08/10/20 25 08/10/2025 CBC W/DIF F lymphocytes 12.9 % 15.0-5 0.0 low Not Available [facility] (Lab) [address] [facility], [place], [address], 08/11/2025 09:03:58 08/10/20 25 08/10/2025 CBC W/DIF F monocytes 8.9 % 1.0-15 .0 Not Available [facility] (Lab) [address] [facility], [place], [address], 08/11/2025 09:03:58 08/10/20 25 08/10/2025 CBC W/DIF F eosinophils 0.7 % 0.0-8. 0 Not Available [facility] (Lab) [address] [facility], [place], [address], 08/11/2025 09:03:58 08/10/20 25 08/10/2025 CBC W/DIF F basophils 0.3 % 0.0-2. 0 Not Available [facility] (Lab) [address] [facility], [place], [address], 08/11/2025 09:03:58 08/10/20 25 08/10/2025 CBC W/DIF [...] separ ately if prese nt. Not Available [facility] (Lab) [address] [facility], [place], [address], 08/11/2025 09:03:58 08/10/20 25 08/10/2025 CBC W/DIF F absolute neutrophils 9.3 10'3/ uL 1.5-8. 0 high Not Available [facility] (Lab) [address] [facility], [place], [address], 08/11/2025 09:03:58 08/10/20 25 08/10/2025 CBC W/DIF F absolute lymphocytes 1.6 10'3/ uL 1.0-4. 0 Not Available [facility] (Lab) [address] [facility], [place], [address], 08/11/2025 09:03:58 08/10/20 25 08/10/2025 CBC W/DIF F absolute monocytes 1.1 10'3/ uL 0.2-1. 0 high Not Available [facility] (Lab) [address] [facility], [place], [address], 08/11/2025 09:03:58 08/10/20 25 08/10/2025 CBC W/DIF F absolute eosinophils 0.1 10'3/ uL 0.0-0. 6 Not Available [facility] (Lab) [address] [facility], [place], [address], 08/11/2025 09:03:58 08/10/20 25 08/10/2025 CBC W/DIF F absolute basophils 0.0 10'3/ uL 0.0-0. 3 Not Available [facility] (Lab) [address] [facility], [place], [address], 08/11/2025 09:03:58 08/10/20 25 08/10/2025 CBC W/DIF F absolute immature granulocytes 0.2 10'3/ uL 0.00-0 .10 high Refer ence range s for nonbi nary/ inter sex or unspe cifie d gende r patie nts have not been estab lishe d. Pleas e refer to the tony wing table for range s estab lishe d for cisge nder patie nts and evalu ate in the clini randal kiera xt of the indiv idual patie nt: https ://la and book. nm.or g/gen derx Not Available [facility] (Lab) [address] [place], [address], 08/11/2025 09:03:58 06/20/20 25 06/20/2025 imagi ng/di agnos tic resul t No observ ation record ed. ROBERT [facility] [address] [place], [address], 06/20/2025 13:33:45 06/20/20 25 06/20/2025 US, obste tric, follo w-up No observ ation record ed. [email or web address] [facility] [address] [place], [address], 06/27/2025 17:32:46 07/03/2007/03/2025 non-s tress test No observ ation record ed. [address] [address], [place], [address], 07/19/2025 15:34:42 07/03/20 25 07/03/2025 imagi ng/di agnos tic resul t No observ ation record ed. [address], [address], 07/03/2025 11:55:37 07/26/2007/26/2025 imagi ng/di agnos tic resul t No observ ation record ed. [address], [address], 07/26/2025 18:39:01 07/26/20 25 07/26/2025 imagi ng/di agnos tic resul t No observ ation record ed. [facility] [address] [place] [address], [address], 07/26/2025 18:39:01 07/26/20 25 07/26/2025 imagi ng/di agnos tic resul t No observ ation record ed. [facility] [address] [place] [address], [address], 07/26/2025 18:39:01 08/14/20 25 08/14/2025 imagi ng/di agnos tic resul t No observ ation record ed. [facility] [address] [place] [address], [address], 08/14/2025 09:43:44 08/14/20 25 08/14/2025 imagi ng/di agnos tic resul t No observ ation record ed. [facility] [address] [place] [address], [address], 08/14/2025 14:53:30 Result Notes None recorded. Problems Name Problem SNOMED Code Status Onset Date Resolution Date Notes Provider Name and Address Organization Details Recorded Time Anxiety 38120076 Active 2024 Kristen Ruffin [facility] 11:01:06 39739452 Active 2024 Aleah Bedolla [facility] 11:57:32 Platelet count below reference range 208571965 Active 2024 Referral faxed to [facility] 06/01 scheduled 06/20 0900 Level II us and consult Zoey Tarango [facility] 11:50:53 Problem Notes None recorded. Procedures Surgical History Date Name Laterality Status Provider Name and Address Organization Details Recorded Time 5 Date of Last Pap Smear completed Kristen Galvantz [facility] 01/13/2025 11:01:13 7 operative procedure on wrist completed Aleahsergio Bedolla [facility] 02/10/2025 11:57:07 Imaging Results None recorded. [...] Updated DateTime 07/12/2025 170.18 cm 29 kg/m2 19056.59 g 120/78 mm[Hg] [facility] 14:04:56 Date Recorded Body height Body mass index (BMI) Body weight Systolic And Diastolic Provider Name and Address Organization Details Last Updated DateTime 07/24/2025 170.18 cm 29.1 kg/m2 60755.18 g 139/81 mm[Hg] Isabel [facility] 07/24/2025 11:31:16 Date Recorded Body height Body mass index (BMI) Body weight Systolic And Diastolic Provider Name and Address Organization Details Last Updated DateTime 08/04/2025 170.18 cm 29.3 kg/m2 96533.77 g 128/77 mm[Hg] CHERIE CARR [facility] 08/04/2025 15:36:53 Date Recorded Body height Body mass index (BMI) Body weight Systolic And Diastolic Provider Name and Address Organization Details Last Updated DateTime 08/10/2025 170.18 cm 29.6 kg/m2 89475.96 g 116/75 mm[Hg] CHERIE LILLY [facility] 08/10/2025 15:45:22 Social History Question Answer Notes LastModified by Organizat ion Details LastModified Time Tobacco Smoking Status Never Smoker Kristen sánchez, [facility] 01/13/2025 11:05:22 If You Are , What Was Your Level Of Alcohol Consumption Prior To ? Occasional [email or web address] Information not available 01/13/2025 Are You Blind Or Do You Have Difficulty Seeing? No [email or web address] Information n ot available 01/13/2025 What Is Your Level Of Caffeine Consumption? Occasional [email or web address] Information not available 01/13/2025 In The 14 Days Before Symptom Onset, Have You Had Close Contact With A Laboratory-confirm ed COVID-19 While That Case Was Ill? No [email or web address] Information n ot available 01/13/2025 In The 14 Days Before Symptom Onset, Have You Had Close Contact With A Person Who Is Under Investigation For COVID-19 While That Person Was Ill? No [email or web address] Information not available 01/13/2025 Have You Been To An Area Known To Be High Risk For COVID-19? No [email or web address] Information not available 01/13/2025 Are You Deaf Or Do You Have Serious Difficulty Hearing? No [email or web address] Information not available 01/13/2025 Do You Have Smoke And Carbon Monoxide Detectors In Your Home? Yes [email or web address] Information not available 01/13/2025 Do You Use Sunscreen Routinely? Yes [email or web address] Information not available 01/13/2025 Has Tobacco Cessation Counseling Been Provided? No [email or web address] Information not available 01/13/2025 Have You Used IV Drugs? No [email or web address] Information not available 01/13/2025 Do You Have Difficulty Walking Or Climbing Stairs? No [email or web address] Information not available 01/13/2025 Sex: Unknown Functional Status Question Answer Note LastModified by Organizat ion Details LastModified Time Do you use any illicit or recreational drugs? No [email or web address] Information not available 01/13/2025 Do you or have you ever used any other forms of tobacco or nicotine? Yes [email or web address] Information not available 01/13/2025 What is your level of alcohol consumption? None [email or web address] Information not available 01/13/2025 Are you able to walk independently without assistance or assistive devices? YESWOREST [email or web address] Information not available 01/13/2025 Are you able to care for yourself independently? Yes [email or web address] Information not available 01/13/2025 Do you have difficulty dressing, bathing, grooming, or toileting? No [email or web address] Information not available 01/13/2025 Do you or have you ever used e-cigarettes or vape? Former user of electronic cigarettes [email or web address] Information not available 01/13/2025 Mental Status None recorded. Family History Relationship Description Onset Age of this Age Resolved Age Notes LastModified by Organization Details LastModified Time Unspecified Relation Family history unknown Not available 2024 13:48:03 Paternal Grandfather Malignant neoplasm of prostate [email or web address] Not available 07/31 15:39:21 Maternal Grandfather Malignant neoplasm of lung [email or web address] Not available 01/13 11:03:40 Maternal Grandmother Malignant neoplasm of pancreas [email or web address] Not available 07/31 15:39:21 Maternal Aunt Malignant neoplasm of breast [email or web address] Not available 2024 13:48:03 Father Leukemia [email or web address] Not availa ble 08/10/2025 15:39:21 Mother Diabetes mellitus [email or web address] Not available 01/13 11:04:57 Medical History Condition [...] ICD10 Code Diagnosis IMO Codes Diagnosis Note [id number] Hayden Steele MD [place] [address] [address] 01/13/2025 09:39:53 01/13/2025 10:18:45 [id number] Isabelle Be CNM [place] [address] [address] 01/13/2025 09:41:07 01/13/2025 12:58:36 Amenorrhea 89341635 N91.2 57511 reviewed education and precaution fátima for gummy PNVunisom and b6 for nauseapap not collected, reviewed usplan 12 week new ob and first look Gynecologi c examination 14324565 Z01.321 0482397 [id number] MD Jayjay [place] [address],[place] [address] 02/10/2025 10:30:31 02/10/2025 11:51:00 screening 699563636 Z36.82 Z3A.12 605980 [id number] MD Jayjay [place] [address],[place] [address] 02/10/2025 10:30:56 02/10/2025 12:34:45 screening 191303729 Z36.89 Genetic in vestigation procedure 93029289 Z31.430 Gestation period, 12 weeks 86966148 Z3A.12 6638968 First trim rosa 03859628 Z34.01 10989976 198468 MD Jayjay [place] [address],[place] [address] 03/10/2025 09:22:48 03/10/2025 10:45:15 Second trimester 04513837 Z34.02 50241104 [id number] MD Jayjay [place] [address],[place] [address] 04/03/2025 14:40:22 04/03/2025 16:20:20 screening for malformation 266981919 Z36.3 Z3A.20 1190693900 [id number] MD Jayjay [place] [address],[place] [address] 04/03/2025 14:44:57 04/03/2025 16:37:32 Thrombocytopenic disorder 309777950 D69.6 25515 - plt 125 on new OB labs- repeat today Gestation period, 20 weeks 93010122 Z3A.20 3111147 - continue PNV [id number] MD Jayajy [place] [address],[place] [address] 05/02/2025 09:18:09 05/02/2025 10:11:24 Follow-up encounter 459472213 Z36.2 Z3A.24 6211626528 [id number] MD Jayjay [place] [address],[place] [address] 05/02/2025 09:25:23 05/02/2025 10:55:47 Nausea and vomiting 72900717 R11.2 Second tri mester 59598763 Z34.02 89321931 335476 MD Jayjay [place] [address],[place] [address] 05/30/2025 09:40:10 05/30/2025 10:26:07 Thrombocytopenic disorder 667679772 D69.6 25346 - plt 125>131- repeat today Gestation period, 28 weeks 77680508 Z3A.28 1031608 248503 MD Windy [place] [address],[place] [address] 06/13/2025 15:20:18 06/13/2025 16:44:44 Platelet count below reference range 910540401 D69.6 86290806 - plt 125>131>11 3- MFM consult Gestation period, 30 weeks 35865638 Z3A.30 1522337 [id number] MD Jayjay [place] [address],[place] [address] 06/30/2025 11:40:05 06/30/2025 12:44:02 Platelet count below reference range 636975788 D69.6 95904923 - plt 125>131>11 3- MFM consult Gestation period, 32 weeks 5621023 Z3A.32 5057947 - continue PNV [id number] MD Windy [place] [address],[place] [address] 07/12/2025 13:47:56 07/14/2025 11:51:27 Thrombocytopenic disorder 374289570 D69.6 36143 - plt 125>131>77 - repeat today- MFM consult Gestation period, 34 weeks 55785938 Z3A.34 3413637 - continue PNV [id number] MD Jayjay [place] [address],[place] [address] 07/24/2025 11:18:52 07/24/2025 12:20:34 Thrombocytopenic disorder 510269535 D69.6 39991 - plt 125>131>77 >110- repeat today- MFM consult Gestation period, 36 weeks 99404709 Z3A.36 9291141 [id number] JOLIE TOMLINSON MD [place] [address],[place] [address] 08/04/2025 15:30:27 08/04/2025 16:22:08 Cobalamin deficiency 286814369 E53.8 718022 - on injections Platelet c ount below reference range 444916971 D69.6 85516228 - plt 125>131>11 3>115- MFM consult Gestation period, 37 weeks 67231440 Z3A.37 3148934 - continue PNV [id number] JOLIE TOMLINSON MD [place] [address],[place] [address] 08/10/2025 15:38:43 08/10/2025 16:32:04 Platelet count below reference range 373508410 D69.6 40339472 - plt 125>131>11 3>115>113- repeat today Gestation period, 38 weeks 30387015 Z3A.38 4000766 - continue PNV [id number] JOLIE TOMLINSON MD [place] [address],[place] [address] 08/14/2025 16:37:35 08/14/2025 17:11:26 Health Concerns Section Related Observation LastModified by Organization Detai ls LastModified Time None Recorded Concern Status LastModified by Organization Details LastModified Time None Recorded Advance Directives Directive None Recorded Payers Insurance Date Sequence Insurance Name Policy Number Policy Marie Covered Member ID Marie Member ID Guarantor Name 08/04/2025 2 [place] Gabby Jose [id number] Kya Angulo 01/17/2025 1 [place] Kya Angulo [id number] Kya Angulo 08/14/2025 1 [place] [id number] Kya Angulo [id number] Kya Angulo 08/08/2025 2 [place] Gabby Jose [id number] Kya Angulo 08/09/2025 [facility] - DOS ON OR AFTER 21 (MEDICAID REPLACEMENT - HMO) Gabby Jose [id number] Kya Robinsries Notes Date Note Type Note Provider Name and Address Organization Details Recorded Time 07/12/2025 text/html Generic HPI TemplateReported by Patient JOLIE TOMLINSON MD [address], [place], [address], [facility] 07/14/2025 11:42:33 07/24/2025 text/html Generic HPI TemplateReported by Patient JOLIE TOMLINSON MD [address], [place], [address], [facility] 07/24/2025 12:15:12 08/04/2025 text/html Generic HPI TemplateReported by Patient JOLIE TOMLINSON MD [address], [place], [address], [facility] 08/04/2025 16:08:52 08/10/2025 text/html Generic HPI TemplateReported by Patient JOLIE TOMLINSON MD [address], [place], [address], [facility] 08/10/2025 16:30:59 OBGyn Episode Ob Episode Information Episode Created Date Number of Fetuses Patient Bloodtype Patient rh Status Prepregnancy Weight lbs Domestic Partner Domestic Partner Phone Father Name Ecclesiastical Worker Status 02/11/20 25 1 O Positive 150 Jovany Juwan OPEN Fetus Data First Name Last Name Admitted to NICU Weight (g) Sex Living Outcome Pediatric Complications Fetus ID Race Codes Race Delivery Type [id number] Problems Problem Notes RSV vaccine received 07/04/25 . Problem Name Start Date End Date Resolution Snomed Code Not e Platelet count below reference range 06/01/2025 [id number] [facility] [place] [facility] scheduled 06/20 0900 Level II us [...] Date Ultra Sound Latest Days Gestation 0 [email or web address] 02/10/2025 08/21/20 25 0 Pre- Flowsheet Flowsheet Date 02/10/2025 [place]land Score Blood Edema Fundus Height Fundus Units Glucose Ketones Leukocytes Nitrite Labor Signs Protein Cervic Dilation Cervic Effacement Cervic Station Type Weight in lbs Pre/Post Dialysis Refused Weight 153.601713745413 BP Diastolic BP Location Tested BP Systolic BP Type 77 L arm 122 sitting Fetus Heart Rate Present A Present Fetus Movement Comments Patient presents to [facility] care. otherwise uncomplicated. No bleeding [...] Weight in lbs Pre/Post Dialysis Refused Weight 156.959011288775 BP Diastolic BP Location Tested BP Systolic [...] Weight in lbs Pre/Post Dialysis Refused Weight 160.438238818778 BP Diastolic BP Location Tested BP Systolic [...] Weight in lbs Pre/Post Dialysis Refused Weight 165.994041296026 BP Diastolic BP Location Tested BP Systolic [...] Type Weight in lbs Pre/Post Dialysis Refused 176.954580068934 BP Diastolic BP Location Tested BP Systolic BP Type 78 L arm 118 sitting Fetus Heart Rate Present A 150 Fetus Movement A Yes Comments Had an episode of DFM yester day, went to [facility] and had negative workup. No cramping or bleeding. GCT and labs today, will draw CBC as well. Discussed Tdap, RSV, and flu vaccines. RTC 2 weeks. Flowsheet Date 06/13/2025 Kirkland Score Blood Edema Fundus Height Fundus Units Glucose Ketones Leukocytes Nitrite Labor Signs Protein Cervic Dilation Cervic Effacement Cervic Station Type Weight in lbs Pre/Post Dialysis Refused 181.442558276704 BP Diastolic BP Location Tested BP Systolic [...] Weight in lbs Pre/Post Dialysis Refused Weight 178.565359201597 BP Diastolic BP Location Tested BP Systolic BP Type 78 L arm 112 sitting Fetus Heart Rate Present A 140 Fetus Movement A Yes Comments Good movement. No cram ping or bleeding. Saw [facility], recommend platelet counts every visit. Interactive Video Technician appointment next week to determine if autoimmune vs gestational. EFW 92%, AC 93%; discussed 39 week induction, plan for 12/15 PM. Preadmission scheduled. RSV vaccine discussed. RTC 2 weeks. Flowsheet Date 07/12/2025 Kirkland Score Blood Edema Fundus Height Fundus Units Glucose Ketones Leukocytes Nitrite Labor Signs Protein Cervic Dilation Cervic Effacement Cervic Station Type Weight in lbs Pre/Post Dialysis Refused Weight 185.595091502276 BP Diastolic BP Location Tested BP Systolic BP Type 78 L arm 120 sitting Fetus Heart Rate Present Fetus Movement A Yes Comments Platelet count down to 77, B 12 deficiency, started B12 injections. Will talk to [facility] about steroid timing. Also low iron, [...] Weight in lbs Pre/Post Dialysis Refused Weight 186.104558730837 BP Diastolic BP Location Tested BP Systolic [...] Weight in lbs Pre/Post Dialysis Refused Weight 187.955996879466 BP Diastolic BP Location Tested BP Systolic [...] Weight in lbs Pre/Post Dialysis Refused Weight 189.429844369130 BP Diastolic BP Location Tested BP Systolic [...]
--- OUTSIDE RECORDS SUMMARY | 2025-08-14 17:58 | XMS_ITS | Continuity of Care Document ---
Author Organization [facility] Address [address] [place] [address] Care Team Providers Care Senior Scheduler Name Role Phone SHERYL DICKSON Primary Care [...] Billio ntoone [address], [place], [address], 02/16/2025 19:59:32 02/17/20 25 02/16/2025 [UNIT Y] ANEUP LOIDY NIPT 22Q11.2 microdeletio n LOW RISK <1 in 10,000 normal Not Available Billionjhonathanon e [address], [place], [address], 02/16/2025 19:59:32 02/17/20 25 02/16/2025 [UNIT Y] ANEUP LOIDY NIPT sex chromosome aneuploidy NOT DETECT ED normal Not Available Billionlaura [facility] [address] [place], [address], 02/16/2025 19:59:32 02/17/20 25 02/16/2025 [UNIT Y] ANEUP LOIDY NIPT monosomy X LOW RISK <1 in 10,000 normal Not Available [facility] [address], [place], [address], 02/16/2025 19:59:32 02/17/20 25 02/16/2025 [UNIT Y] ANEUP LOIDY NIPT trisomy 13 LOW RISK <1 in 10,000 normal Not Available [facility] [address], [place], [address], 02/16/2025 19:59:32 02/17/20 25 02/16/2025 [UNIT Y] ANEUP LOIDY NIPT trisomy 18 LOW RISK <1 in 10,000 normal Not Available [facility] [address], [place], [address], 02/16/2025 19:59:32 02/17/20 25 02/16/2025 [UNIT Y] ANEUP LOIDY NIPT trisomy 21 LOW RISK <1 in 10,000 normal Not Available [facility] [address], [place], [address], 02/16/2025 19:59:32 02/17/20 25 02/16/2025 [UNIT Y] ANEUP LOIDY NIPT sex MALE normal Not Available Billiont oone [address], [place], [address], 02/16/2025 19:59:32 02/17/20 25 02/16/2025 [UNIT Y] ANEUP LOIDY NIPT gestation SINGLE TON normal Not Available [facility] [address], [place], [address], 02/16/2025 19:59:32 02/17/20 25 02/16/2025 [UNIT Y] ANEUP LOIDY NIPT for detailed report, see pdf See PDF normal Not Available [facility] [address], [place], [address], 02/16/2025 19:59:32 02/22/20 25 02/21/2025 [UNIT Y] FLETCHER Rose sickle cell disease/beta -thalassemia /hemoglobino pathies carrier screen NEGATI VE normal Not Available [facility] [address], [place], [address], 02/21/2025 14:09:41 02/22/20 25 02/21/2025 [UNIT Y] FLETCHER Rose alpha-thalas semia carrier screen NEGATI VE normal Not Available [facility] [address], [place], [address], 02/21/2025 14:09:41 02/22/20 25 02/21/2025 [UNIT Y] FLETCHER Rose cystic fibrosis carrier screen NEGATI VE normal Not Available [facility] [address], [place], [address], 02/21/2025 14:09:41 02/22/20 25 02/21/2025 [UNIT Y] FLETCHER Rose spinal muscular atrophy carrier screen NEGATI VE 2 SMN1 copies , SNP not presen t normal Not Available [facility] [address], [place], [address], 02/21/2025 14:09:41 02/22/20 25 02/21/2025 [UNIT Y] FLETCHER Rose for detailed report, see pdf See PDF normal Not Available [facility] [address], [place], [address], 02/21/2025 14:09:41 02/11/20 25 02/10/2025 CT/GC AND TRICH OMONA S VAGIN KARLO (RRNA ), URINE chlamydia trachomatis, PCR Negati ve negati ve Not Available [facility] (Lab) [address], [place], [address], 02/11/2025 12:05:33 02/11/20 25 02/10/2025 CT/GC AND TRICH OMONA S VAGIN KARLO (RRNA ), URINE neisseria gonorrhoeae, PCR Negati ve negati ve Not Available [facility] (Lab) [address] [facility], [place], [address], 02/11/2025 12:05:33 02/11/20 25 02/10/2025 CT/GC AND TRICH OMONA S VAGIN KARLO (RRNA ), URINE trichomonas vaginalis ribosomal RNA (rrna) Negati ve negati ve Not Available [facility] (Lab) [address] [facility], [place], [address], 02/11/2025 12:05:33 02/11/20 25 02/10/2025 CBC W/DIF F WBC 8.7 10'3/ uL 3.5-10 .5 Not Available [facility] (Lab) [address] [facility], [place], [address], 02/11/2025 13:44:37 02/11/20 25 02/10/2025 CBC W/DIF F RBC 4.55 10'6/ uL (based on docume nted legal sex) 3.80-5 .20 Not Available [facility] (Lab) [address] [facility], [place], [address], 02/11/2025 13:44:37 02/11/20 25 02/10/2025 CBC W/DIF F HGB 13.7 g/dL (based on docume nted legal sex) 11.6-1 5.4 Not Available [facility] (Lab) [address] [facility], [place], [address], 02/11/2025 13:44:37 02/11/20 25 02/10/2025 CBC W/DIF F HCT 40.8 % (based on docume nted legal sex) 34.0-4 5.0 Not Available [facility] (Lab) [address] [facility], [place], [address], 02/11/2025 13:44:37 02/11/20 25 02/10/2025 CBC W/DIF F MCV 89.7 fL 80.0-9 9.0 Not Available [facility] (Lab) [address] [facility], [place], [address], 02/11/2025 13:44:37 02/11/20 25 02/10/2025 CBC W/DIF F MCH 30.1 pg 27.0-3 4.0 Not Available [facility] (Lab) [address] [facility], [place], [address], 02/11/2025 13:44:37 02/11/20 25 02/10/2025 CBC W/DIF F MCHC 33.6 g/dL 32.0-3 5.5 Not Available [facility] (Lab) [address] [facility], [place], [address], 02/11/2025 13:44:37 02/11/20 25 02/10/2025 CBC W/DIF F RDW 12.8 % 11.0-1 5.0 Not Available [facility] (Lab) [address] [facility], [place], [address], 02/11/2025 13:44:37 02/11/20 25 02/10/2025 CBC W/DIF F plt 125 10'3/ uL 150-40 0 low Not Available [facility] (Lab) [address] [facility], [place], [address], 02/11/2025 13:44:37 02/11/20 25 02/10/2025 CBC W/DIF F MPV 13.5 fL 8.8-12 .1 high Not Available [facility] (Lab) [address] [facility], [place], [address], 02/11/2025 13:44:37 02/11/20 25 02/10/2025 CBC W/DIF F NRBC's 0.0 % 0.0 Not Available [facility] (Lab) [address] [facility], [place], [address], 02/11/2025 13:44:37 02/11/20 25 02/10/2025 CBC W/DIF F absolute NRBCs 0.0 10'3/ uL no refere nce range establ ished Not Available [facility] (Lab) [address] [facility], [place], [address], 02/11/2025 13:44:37 02/11/20 25 02/10/2025 CBC W/DIF F neutrophils 76.5 % 34.0-7 3.0 high Not Available [facility] (Lab) [address] [facility], [place], [address], 02/11/2025 13:44:37 02/11/20 25 02/10/2025 CBC W/DIF F lymphocytes 14.4 % 15.0-5 0.0 low Not Available [facility] (Lab) [address] [facility], [place], [address], 02/11/2025 13:44:37 02/11/20 25 02/10/2025 CBC W/DIF F monocytes 8.3 % 1.0-15 .0 Not Available [facility] (Lab) [address] [facility], [place], [address], 02/11/2025 13:44:37 02/11/20 25 02/10/2025 CBC W/DIF F eosinophils 0.3 % 0.0-8. 0 Not Available [facility] (Lab) [address] [facility], [place], [address], 02/11/2025 13:44:37 02/11/20 25 02/10/2025 CBC W/DIF F basophils 0.3 % 0.0-2. 0 Not Available [facility] (Lab) [address] [place], [address], 02/11/2025 13:44:37 02/11/20 25 02/10/2025 CBC W/DIF [...] separ ately if prese nt. Not Available [facility] (Lab) [address] [facility], [place], [address], 02/11/2025 13:44:37 02/11/20 25 02/10/2025 CBC W/DIF F absolute neutrophils 6.6 10'3/ uL 1.5-8. 0 Not Available [facility] (Lab) [address] [facility], [place], [address], 02/11/2025 13:44:37 02/11/20 25 02/10/2025 CBC W/DIF F absolute lymphocytes 1.3 10'3/ uL 1.0-4. 0 Not Available [facility] (Lab) [address] [facility], [place], [address], 02/11/2025 13:44:37 02/11/20 25 02/10/2025 CBC W/DIF F absolute monocytes 0.7 10'3/ uL 0.2-1. 0 Not Available [facility] (Lab) [address] [facility], [place], [address], 02/11/2025 13:44:37 02/11/20 25 02/10/2025 CBC W/DIF F absolute eosinophils 0.0 10'3/ uL 0.0-0. 6 Not Available [facility] (Lab) [address] [facility], [place], [address], 02/11/2025 13:44:37 02/11/20 25 02/10/2025 CBC W/DIF F absolute basophils 0.0 10'3/ uL 0.0-0. 3 Not Available [facility] (Lab) [address] [place], [address], 02/11/2025 13:44:37 02/11/2002/10/2025 CBC W/DIF F absolute [...] calzada book. nm.or g/gen derx Not Available [facility] (Lab) [address], [place], [address], 02/11/2025 13:44:37 02/11/2002/10/2025 HIV 1/2 ANTIG EN/AN TIBOD Y, REFLE X CONFI RMATI ON HIV antigen/anti body Nonrea ctive nonrea ctive HIV-1 antig en and HIV-1 /HIV- 2 antib odies were not detec alfredo. No labor atory evide nce of HIV infec tion. Not Available [facility] (Lab) [address], [place], [address], 02/11/2025 13:44:38 02/11/20 25 02/10/2025 HEPAT ITIS B SURFA CE ANTIG EN hepatitis B surface antigen Non-re active non-re active This assay was perfo rmed using [employer] ratio n reage nts and test kits. Value s obtai evelyn with other assay metho ds or kits canno t be used inter collins eably . Not Available [facility] (Lab) [address], [place], [address], 02/11/2025 13:44:38 02/11/20 25 02/10/2025 HEPAT ITIS C ANTIB TIM SCREE N, REFLE X TO CONFI RMATI ON hepatitis C antibody Non-re active non-re active Antib odies to HCV Not Detec alfredo, does not exclu de the possi bilit y of expos ure to HCV. Not Available [facility] (Lab) [address], [place], [address], 02/11/2025 13:44:39 02/11/20 25 02/10/2025 RUBEL LA IGG ANTIB TIM, QUANT rubella antibodies, IgG Reacti ve reacti ve Not Available [facility] (Lab) [address], [place], [address], 02/11/2025 13:44:39 02/11/20 25 02/10/2025 RUBEL LA IGG ANTIB TIM, QUANT rubella antibodies, IgG quant 47.1 IU/mL >=10 Non-r eacti ve (Non- Immun e) <10 IU/mL React kvng (Immu ne) > or = 10 IU/mL Not Available [facility] (Lab) [address], [place], [address], 02/11/2025 13:44:39 02/11/20 25 02/10/2025 TYPE/ RH/SC REEN ABO/Rh type O POS Not Available [facility] (Lab) [address], [place], [address], 02/11/2025 13:44:40 02/11/20 25 02/10/2025 TYPE/ RH/SC REEN antibody screen NEG Not Available [facility] (Lab) [address], [place], [address], 02/11/2025 13:44:40 02/11/2002/10/2025 TYPE/ RH/SC REEN exp date 2024 23:59 Not Available [facility] (Lab) [address], [place], [address], 02/11/2025 13:44:40 02/11/20 25 02/10/2025 HEMOG LOBIN [...] >8.0% Actio n sugge sted Not Available [facility] (Lab) [address] [facility], [place], [address], 02/11/2025 13:44:40 02/11/20 25 02/10/2025 RPR SCREE N, REFLE X TITER /CONF IRMAT ION RPR qualitative Nonrea ctive nonrea ctive Not Available [facility] (Lab) [address], [place], [address], 02/11/2025 13:44:41 02/11/20 25 02/10/2025 drug scree n, urine Amphetamines : negati ve Not Available [place] [facility] [address], [place], [address], 02/10/2025 12:55:20 02/11/20 25 02/10/2025 drug scree n, urine Cannabinoids : negati ve Not Available [facility] [address], [place], [address], 02/10/2025 12:55:20 02/11/20 25 02/10/2025 drug scree n, urine Cocaine: negati ve Not Available [facility] [address], [place], [address], 02/10/2025 12:55:20 02/11/20 25 02/10/2025 drug scree n, urine Opiates: negati ve Not Available [facility] [address], [place], [address], 02/10/2025 12:55:20 02/11/20 25 02/10/2025 drug scree n, urine Barbiturates : negati ve Not Available [place] [facility] [address], [place], [address], 02/10/2025 12:55:20 02/11/20 25 02/10/2025 drug scree n, urine Benzodiazepi john: negati ve Not Available [facility] [address], [place], [address], 02/10/2025 12:55:20 03/10/20 25 03/10/2025 CULTU RE: URINE result report SEE RESULT S BELOW Test: Cultu re: Urine Speci men Sourc e: Urine Voide d Speci men Type: Urine Speci men Date: 2024 0938 Resul t Date: 20242 Resul t Statu s: Final resul t Abnor mal: No Resul ting Lab: [facility] [address] [facility] [place] [address] Tel: CULTU RE ----- ----- ----- --- No growt h in 1 day (dete ction level of 10,00 0 colon ies / ml.) Not Available [facility] (Lab) [address], [place], [address], 03/11/2025 23:15:50 04/03/20 25 04/03/2025 CBC W/DIF F WBC 12.9 10'3/ uL 3.5-10 .5 high Not Available [facility] (Lab) [address] [place], [address], 04/04/2025 04:39:51 04/03/2004/03/2025 CBC W/DIF F RBC 4.33 10'6/ uL (based on docume nted legal sex) 3.80-5 .20 Not Available [facility] (Lab) [address] [place], [address], 04/04/2025 04:39:51 04/03/20 25 04/03/2025 CBC W/DIF F HGB 13.2 g/dL (based on docume nted legal sex) 11.6-1 5.4 Not Available [facility] (Lab) [address] [facility], [place], [address], 04/04/2025 04:39:51 04/03/2004/03/2025 CBC W/DIF F HCT 40.2 % (based on docume nted legal sex) 34.0-4 5.0 Not Available [facility] (Lab) [address] [facility], [place], [address], 04/04/2025 04:39:51 04/03/2004/03/2025 CBC W/DIF F MCV 92.8 fL 80.0-9 9.0 Not Available [facility] (Lab) [address] [facility], [place], [address], 04/04/2025 04:39:51 04/03/20 25 04/03/2025 CBC W/DIF F MCH 30.5 pg 27.0-3 4.0 Not Available [facility] (Lab) [address] [facility], [place], [address], 04/04/2025 04:39:51 04/03/2004/03/2025 CBC W/DIF F MCHC 32.8 g/dL 32.0-3 5.5 Not Available [facility] (Lab) [address] [facility], [place], [address], 04/04/2025 04:39:51 04/03/2004/03/2025 CBC W/DIF F RDW 13.0 % 11.0-1 5.0 Not Available [facility] (Lab) [address] [facility], [place], [address], 04/04/2025 04:39:51 04/03/20 25 04/03/2025 CBC W/DIF F plt 131 10'3/ uL 150-40 0 low Not Available [facility] (Lab) [address] [facility], [place], [address], 04/04/2025 04:39:51 04/03/2004/03/2025 CBC W/DIF F MPV 13.9 fL 8.8-12 .1 high Not Available [facility] (Lab) [address] [facility], [place], [address], 04/04/2025 04:39:51 04/03/2004/03/2025 CBC W/DIF F NRBC's 0.0 % 0.0 Not Available [facility] (Lab) [address] [facility], [place], [address], 04/04/2025 04:39:51 04/03/2004/03/2025 CBC W/DIF F absolute NRBCs 0.0 10'3/ uL no refere nce range establ ished Not Available [facility] (Lab) [address] [facility], [place], [address], 04/04/2025 04:39:51 04/03/2004/03/2025 CBC W/DIF F neutrophils 76.6 % 34.0-7 3.0 high Not Available [facility] (Lab) [address] [facility], [place], [address], 04/04/2025 04:39:51 04/03/2004/03/2025 CBC W/DIF F lymphocytes 14.2 % 15.0-5 0.0 low Not Available [facility] (Lab) [address] [facility], [place], [address], 04/04/2025 04:39:51 04/03/2004/03/2025 CBC W/DIF F monocytes 7.6 % 1.0-15 .0 Not Available [facility] (Lab) [address] [facility], [place], [address], 04/04/2025 04:39:51 04/03/2004/03/2025 CBC W/DIF F eosinophils 0.7 % 0.0-8. 0 Not Available [facility] (Lab) [address] [facility], [place], [address], 04/04/2025 04:39:51 04/03/2004/03/2025 CBC W/DIF F basophils 0.4 % 0.0-2. 0 Not Available [facility] (Lab) [address] [facility], [place], [address], 04/04/2025 04:39:51 04/03/20 25 04/03/2025 CBC W/DIF [...] separ ately if prese nt. Not Available [facility] (Lab) [address] [facility], [place], [address], 04/04/2025 04:39:51 04/03/20 25 04/03/2025 CBC W/DIF F absolute neutrophils 9.9 10'3/ uL 1.5-8. 0 high Not Available [facility] (Lab) [address] [facility], [place], [address], 04/04/2025 04:39:51 04/03/2004/03/2025 CBC W/DIF F absolute lymphocytes 1.8 10'3/ uL 1.0-4. 0 Not Available [facility] (Lab) [address] [facility], [place], [address], 04/04/2025 04:39:51 04/03/20 25 04/03/2025 CBC W/DIF F absolute monocytes 1.0 10'3/ uL 0.2-1. 0 Not Available [facility] (Lab) [address] [facility], [place], [address], 04/04/2025 04:39:51 04/03/2004/03/2025 CBC W/DIF F absolute eosinophils 0.1 10'3/ uL 0.0-0. 6 Not Available [facility] (Lab) [address] [facility], [place], [address], 04/04/2025 04:39:51 04/03/2004/03/2025 CBC W/DIF F absolute basophils 0.1 10'3/ uL 0.0-0. 3 Not Available [facility] (Lab) [address] [facility], [place], [address], 04/04/2025 04:39:51 04/03/2004/03/2025 CBC W/DIF F absolute [...] calzada book. nm.or g/gen derx Not Available [facility] (Lab) [address] [facility], [place], [address], 04/04/2025 04:39:51 05/02/2005/02/2025 CULTU RE: URINE result report SEE RESULT S BELOW Test: Cultu re: Urine Speci men Sourc e: Urine - Clean Catch Speci men Type: Urine Speci men Date: 1502 Resul t Date: 0404 Resul t Statu s: Final resul t Abnor mal: No Resul ting Lab: [facility] [address] [facility] [address] Tel: CULTU RE ----- ----- ----- --- No growt h in 1 day (dete ction level of 10,00 0 colon ies / ml.) Not Available [facility] (Lab) [address], [place], [address], 05/04/2025 05:09:17 05/30/2005/30/2025 CBC W/DIF F WBC 11.9 10'3/ uL 3.5-10 .5 high Not Available [facility] (Lab) [address], [place], [address], 05/31/2025 12:26:07 05/30/20 25 05/30/2025 CBC W/DIF F RBC 3.98 10'6/ uL (based on docume nted legal sex) 3.80-5 .20 Not Available [facility] (Lab) [address], [place], [address], 05/31/2025 12:26:07 05/30/20 25 05/30/2025 CBC W/DIF F HGB 12.4 g/dL (based on docume nted legal sex) 11.6-1 5.4 Not Available [facility] (Lab) [address], [place], [address], 05/31/2025 12:26:07 05/30/20 25 05/30/2025 CBC W/DIF F HCT 36.8 % (based on docume nted legal sex) 34.0-4 5.0 Not Available [facility] (Lab) [address], [place], [address], 05/31/2025 12:26:07 05/30/2005/30/2025 CBC W/DIF F MCV 92.5 fL 80.0-9 9.0 Not Available [facility] (Lab) [address] [place], [address], 05/31/2025 12:26:07 05/30/20 25 05/30/2025 CBC W/DIF F MCH 31.2 pg 27.0-3 4.0 Not Available [facility] (Lab) [address] [place], [address], 05/31/2025 12:26:07 05/30/20 25 05/30/2025 CBC W/DIF F MCHC 33.7 g/dL 32.0-3 5.5 Not Available [facility] (Lab) [address] [facility], [place], [address], 05/31/2025 12:26:07 05/30/20 25 05/30/2025 CBC W/DIF F RDW 13.4 % 11.0-1 5.0 Not Available [facility] (Lab) [address] [facility], [place], [address], 05/31/2025 12:26:07 05/30/20 25 05/30/2025 CBC W/DIF F plt 113 10'3/ uL 150-40 0 low Not Available [facility] (Lab) [address] [facility], [place], [address], 05/31/2025 12:26:07 05/30/20 25 05/30/2025 CBC W/DIF F MPV 13.8 fL 8.8-12 .1 high Not Available [facility] (Lab) [address] [facility], [place], [address], 05/31/2025 12:26:07 05/30/20 25 05/30/2025 CBC W/DIF F NRBC's 0.0 % 0.0 Not Available [facility] (Lab) [address] [facility], [place], [address], 05/31/2025 12:26:07 05/30/20 25 05/30/2025 CBC W/DIF F absolute NRBCs 0.0 10'3/ uL no refere nce range establ ished Not Available [facility] (Lab) [address] [facility], [place], [address], 05/31/2025 12:26:07 05/30/20 25 05/30/2025 CBC W/DIF F neutrophils 79.4 % 34.0-7 3.0 high Not Available [facility] (Lab) [address] [facility], [place], [address], 05/31/2025 12:26:07 05/30/20 25 05/30/2025 CBC W/DIF F lymphocytes 10.8 % 15.0-5 0.0 low Not Available [facility] (Lab) [address] [facility], [place], [address], 05/31/2025 12:26:07 05/30/20 25 05/30/2025 CBC W/DIF F monocytes 7.7 % 1.0-15 .0 Not Available [facility] (Lab) [address] [facility], [place], [address], 05/31/2025 12:26:07 05/30/20 25 05/30/2025 CBC W/DIF F eosinophils 0.8 % 0.0-8. 0 Not Available [facility] (Lab) [address] [facility], [place], [address], 05/31/2025 12:26:07 05/30/20 25 05/30/2025 CBC W/DIF F basophils 0.4 % 0.0-2. 0 Not Available [facility] (Lab) [address] [facility], [place], [address], 05/31/2025 12:26:07 05/30/20 25 05/30/2025 CBC W/DIF [...] separ ately if prese nt. Not Available [facility] (Lab) [address] [facility], [place], [address], 05/31/2025 12:26:07 05/30/20 25 05/30/2025 CBC W/DIF F absolute neutrophils 9.5 10'3/ uL 1.5-8. 0 high Not Available [facility] (Lab) [address] [facility], [place], [address], 05/31/2025 12:26:07 05/30/20 25 05/30/2025 CBC W/DIF F absolute lymphocytes 1.3 10'3/ uL 1.0-4. 0 Not Available [facility] (Lab) [address] [facility], [place], [address], 05/31/2025 12:26:07 05/30/20 25 05/30/2025 CBC W/DIF F absolute monocytes 0.9 10'3/ uL 0.2-1. 0 Not Available [facility] (Lab) [address] [facility], [place], [address], 05/31/2025 12:26:07 05/30/20 25 05/30/2025 CBC W/DIF F absolute eosinophils 0.1 10'3/ uL 0.0-0. 6 Not Available [facility] (Lab) [address] [facility], [place], [address], 05/31/2025 12:26:07 05/30/20 25 05/30/2025 CBC W/DIF F absolute basophils 0.1 10'3/ uL 0.0-0. 3 Not Available [facility] (Lab) [address] [place], [address], 05/31/2025 12:26:07 05/30/20 25 05/30/2025 CBC W/DIF [...] calzada book. nm.or g/gen derx Not Available [facility] (Lab) [address] [facility], [place], [address], 05/31/2025 12:26:07 05/30/20 25 05/30/2025 HIV 1/2 ANTIG EN/AN TIBOD Y, REFLE X CONFI RMATI ON HIV antigen/anti body Nonrea ctive nonrea ctive HIV-1 antig en and HIV-1 /HIV- 2 antib odies were not detec alfredo. No labor atory evide nce of HIV infec tion. Not Available [facility] (Lab) [address] [facility], [place], [address], 05/31/2025 12:26:07 05/30/20 25 05/30/2025 GTT - GESTA REGAN L ASHOK Rose, ACOG OB glucose, 1 hour screen 82 mg/dL 70-135 Not Available [facility] (Lab) [address] [facility], [place], [address], 05/31/2025 12:26:08 05/30/20 25 05/30/2025 RPR SCREE N, REFLE X TITER /CONF IRMAT ION RPR qualitative Nonrea ctive nonrea ctive Not Available [facility] (Lab) [address] [facility], [place], [address], 05/31/2025 12:26:08 06/30/20 25 06/30/2025 CBC W/DIF F WBC 11.6 10'3/ uL 3.5-10 .5 high Not Available [facility] (Lab) [address] [facility], [place], [address], 07/01/2025 02:43:32 06/30/20 25 06/30/2025 CBC W/DIF F RBC 3.97 10'6/ uL (based on docume nted legal sex) 3.80-5 .20 Not Available [facility] (Lab) [address] [facility], [place], [address], 07/01/2025 02:43:32 06/30/20 25 06/30/2025 CBC W/DIF F HGB 12.4 g/dL (based on docume nted legal sex) 11.6-1 5.4 Not Available [facility] (Lab) [address], [place], [address], 07/01/2025 02:43:32 06/30/20 25 06/30/2025 CBC W/DIF F HCT 35.3 % (based on docume nted legal sex) 34.0-4 5.0 Not Available [facility] (Lab) [address], [place], [address], 07/01/2025 02:43:32 06/30/20 25 06/30/2025 CBC W/DIF F MCV 88.9 fL 80.0-9 9.0 Not Available [facility] (Lab) [address], [place], [address], 07/01/2025 02:43:32 06/30/20 25 06/30/2025 CBC W/DIF F MCH 31.2 pg 27.0-3 4.0 Not Available [facility] (Lab) [address], [place], [address], 07/01/2025 02:43:32 06/30/20 25 06/30/2025 CBC W/DIF F MCHC 35.1 g/dL 32.0-3 5.5 Not Available [facility] (Lab) [address], [place], [address], 07/01/2025 02:43:32 06/30/20 25 06/30/2025 CBC W/DIF F RDW 13.2 % 11.0-1 5.0 Not Available [facility] (Lab) [address], [place], [place], [address], 07/01/2025 02:43:32 06/30/20 25 06/30/2025 CBC W/DIF F plt 106 10'3/ uL 150-40 0 low Not Available [facility] (Lab) [address], [place], [address], 07/01/2025 02:43:32 06/30/20 25 06/30/2025 CBC W/DIF F MPV 13.2 fL 8.8-12 .1 high Not Available [facility] (Lab) [address] [facility], [place], [address], 07/01/2025 02:43:32 06/30/20 25 06/30/2025 CBC W/DIF F NRBC's 0.0 % 0.0 Not Available [facility] (Lab) [address] [facility], [place], [address], 07/01/2025 02:43:32 06/30/20 25 06/30/2025 CBC W/DIF F absolute NRBCs 0.0 10'3/ uL no refere nce range establ ished Not Available [facility] (Lab) [address] [facility], [place], [address], 07/01/2025 02:43:32 06/30/20 25 06/30/2025 CBC W/DIF F neutrophils 77.2 % 34.0-7 3.0 high Not Available [facility] (Lab) [address] [facility], [place], [address], 07/01/2025 02:43:32 06/30/20 25 06/30/2025 CBC W/DIF F lymphocytes 13.2 % 15.0-5 0.0 low Not Available [facility] (Lab) [address] [facility], [place], [address], 07/01/2025 02:43:32 06/30/20 25 06/30/2025 CBC W/DIF F monocytes 7.5 % 1.0-15 .0 Not Available [facility] (Lab) [address] [facility], [place], [address], 07/01/2025 02:43:32 06/30/20 25 06/30/2025 CBC W/DIF F eosinophils 0.9 % 0.0-8. 0 Not Available [facility] (Lab) [address] [facility], [place], [address], 07/01/2025 02:43:32 06/30/20 25 06/30/2025 CBC W/DIF F basophils 0.4 % 0.0-2. 0 Not Available [facility] (Lab) [address] [facility], [place], [address], 07/01/2025 02:43:32 06/30/20 25 06/30/2025 CBC W/DIF [...] separ ately if prese nt. Not Available [facility] (Lab) [address] [facility], [place], [address], 07/01/2025 02:43:32 06/30/20 25 06/30/2025 CBC W/DIF F absolute neutrophils 8.9 10'3/ uL 1.5-8. 0 high Not Available [facility] (Lab) [address] [facility], [place], [address], 07/01/2025 02:43:32 06/30/20 25 06/30/2025 CBC W/DIF F absolute lymphocytes 1.5 10'3/ uL 1.0-4. 0 Not Available [facility] (Lab) [address] [facility], [place], [address], 07/01/2025 02:43:32 06/30/20 25 06/30/2025 CBC W/DIF F absolute monocytes 0.9 10'3/ uL 0.2-1. 0 Not Available [facility] (Lab) [address] [facility], [place], [address], 07/01/2025 02:43:32 06/30/20 06/30/2025 CBC W/DIF F absolute eosinophils 0.1 10'3/ uL 0.0-0. 6 Not Available [facility] (Lab) [address], [place], [address], 07/01/2025 02:43:32 06/30/2006/30/2025 CBC W/DIF F absolute basophils 0.1 10'3/ uL 0.0-0. 3 Not Available [facility] (Lab) [address], [place], [address], 07/01/2025 02:43:32 06/30/2006/30/2025 CBC W/DIF F absolute [...] calzada book. nm.or g/gen derx Not Available [facility] (Lab) [address], [place], [address], 07/01/2025 02:43:32 07/12/20 25 07/12/2025 CBC W/DIF F WBC 13.2 10'3/ uL 3.5-10 .5 high Not Available [facility] (Lab) [address], [place], [address], 07/13/2025 05:59:18 07/12/20 25 07/12/2025 CBC W/DIF F RBC 3.94 10'6/ uL (based on docume nted legal sex) 3.80-5 .20 Not Available [facility] (Lab) [address], [place], [address], 07/13/2025 05:59:18 07/12/20 25 07/12/2025 CBC W/DIF F HGB 11.9 g/dL (based on docume nted legal sex) 11.6-1 5.4 Not Available [facility] (Lab) [address], [place], [address], 07/13/2025 05:59:18 07/12/20 25 07/12/2025 CBC W/DIF F HCT 34.9 % (based on docume nted legal sex) 34.0-4 5.0 Not Available [facility] (Lab) [address], [place], [address], 07/13/2025 05:59:18 07/12/20 25 07/12/2025 CBC W/DIF F MCV 88.6 fL 80.0-9 9.0 Not Available [facility] (Lab) [address], [place], [address], 07/13/2025 05:59:18 07/12/20 25 07/12/2025 CBC W/DIF F MCH 30.2 pg 27.0-3 4.0 Not Available [facility] (Lab) [address], [place], [address], 07/13/2025 05:59:18 07/12/20 25 07/12/2025 CBC W/DIF F MCHC 34.1 g/dL 32.0-3 5.5 Not Available [facility] (Lab) [address], [place], [address], 07/13/2025 05:59:18 07/12/20 25 07/12/2025 CBC W/DIF F RDW 13.0 % 11.0-1 5.0 Not Available [facility] (Lab) [address], [place], [address], 07/13/2025 05:59:18 07/12/20 25 07/12/2025 CBC W/DIF F plt 110 10'3/ uL 150-40 0 low Not Available [facility] (Lab) [address], [place], [address], 07/13/2025 05:59:18 07/12/20 25 07/12/2025 CBC W/DIF F MPV 12.9 fL 8.8-12 .1 high Not Available [facility] (Lab) [address], [place], [address], 07/13/2025 05:59:18 07/12/20 25 07/12/2025 CBC W/DIF F NRBC's 0.0 % 0.0 Not Available [facility] (Lab) [address], [place], [address], 07/13/2025 05:59:18 07/12/20 25 07/12/2025 CBC W/DIF F absolute NRBCs 0.0 10'3/ uL no refere nce range establ ished Not Available [facility] (Lab) [address], [place], [address], 07/13/2025 05:59:18 07/12/20 25 07/12/2025 CBC W/DIF F neutrophils 75.1 % 34.0-7 3.0 high Not Available [facility] (Lab) [address], [place], [address], 07/13/2025 05:59:18 07/12/20 25 07/12/2025 CBC W/DIF F lymphocytes 12.6 % 15.0-5 0.0 low Not Available [facility] (Lab) [address], [place], [address], 07/13/2025 05:59:18 07/12/20 25 07/12/2025 CBC W/DIF F monocytes 9.7 % 1.0-15 .0 Not Available [facility] ([facility]) [address] [facility], [place], [address], 07/13/2025 05:59:18 07/12/20 25 07/12/2025 CBC W/DIF F eosinophils 0.9 % 0.0-8. 0 Not Available [facility] ([facility]) [address] [facility], [place], [address], 07/13/2025 05:59:18 07/12/20 25 07/12/2025 CBC W/DIF F basophils 0.5 % 0.0-2. 0 Not Available [facility] (Lab) [address] [facility], [place], [address], 07/13/2025 05:59:18 07/12/20 25 07/12/2025 CBC W/DIF [...] separ ately if prese nt. Not Available [facility] (Lab) [address] [facility], [place], [address], 07/13/2025 05:59:18 07/12/20 25 07/12/2025 CBC W/DIF F absolute neutrophils 9.9 10'3/ uL 1.5-8. 0 high Not Available [facility] ([facility]) [address] [facility], [place], [address], 07/13/2025 05:59:18 07/12/20 25 07/12/2025 CBC W/DIF F absolute lymphocytes 1.7 10'3/ uL 1.0-4. 0 Not Available [facility] ([facility]) [address] [facility], [place], [address], 07/13/2025 05:59:18 07/12/20 25 07/12/2025 CBC W/DIF F absolute monocytes 1.3 10'3/ uL 0.2-1. 0 high Not Available [facility] ([facility]) [address] [facility], [place], [address], 07/13/2025 05:59:18 07/12/20 25 07/12/2025 CBC W/DIF F absolute eosinophils 0.1 10'3/ uL 0.0-0. 6 Not Available [facility] ([facility]) [address] [facility], [place], [address], 07/13/2025 05:59:18 07/12/20 25 07/12/2025 CBC W/DIF F absolute basophils 0.1 10'3/ uL 0.0-0. 3 Not Available [facility] ([facility]) [address] [facility], [place], [address], 07/13/2025 05:59:18 07/12/20 25 07/12/2025 CBC W/DIF [...] calzada book. nm.or g/gen derx Not Available [facility] (Lab) [address] [facility], [place], [address], 07/13/2025 05:59:18 02/11/20 25 02/10/2025 US, ovi soares, nucha l trans lucen cy No observ ation record ed. [facility] [address], [place], [address], 02/10/2025 18:38:42 02/11/20 25 02/10/2025 US, ovi soares follo w-up No observ ation record ed. [facility] [address], [place], [address], 02/13/2025 09:20:03 04/03/20 25 04/03/2025 US, ovi soares, 2nd or 3rd trime ster No observ ation record ed. [address], [place], [address], 04/03/2025 18:43:20 04/03/20 25 04/03/2025 US, obste tric, 2nd or 3rd trime ster No observ ation record ed. [email or web address] [facility] [address], [place], [address], 04/05/2025 17:47:52 04/21/20 25 04/21/2025 non-s tress test No observ ation record ed. [address], [place], [address], 04/24/2025 12:03:28 05/02/20 25 05/02/2025 US, obste tric, follo w-up No observ [facility]ion record ed. [facility] [address], [place], [address], 05/02/2025 12:58:26 05/02/20 25 05/02/2025 US, obste tric, follo w-up No observ ation record ed. ROBERT [facility] [address], [place], [address], 05/03/2025 18:13:01 05/29/20 25 05/29/2025 non-s tress test No observ ation record ed. [address], [place], [address], 05/31/2025 15:39:22 06/20/20 25 06/20/2025 imagi ng/di agnos tic resul t No observ ation record ed. [facility] [address] [place], [address], 06/20/2025 13:33:45 06/20/20 25 06/20/2025 US, obste tric, follo w-up No observ ation record ed. [email or web address] [facility] [address] [place], [address], 06/27/2025 17:32:46 07/03/2007/03/2025 non-s tress test No observ ation record ed. [address] [address], [place], [address], 07/19/2025 15:34:42 07/03/2007/03/2025 imagi ng/di agnos tic resul t No observ ation record ed. [address] [address], [place], [address], 07/03/2025 11:55:37 07/26/2007/26/2025 imagi ng/di agnos tic resul t No observ ation record ed. [address], [address], 07/26/2025 18:39:01 07/26/20 25 07/26/2025 imagi ng/di agnos tic resul t No observ ation record ed. [facility] [address] [place] [address], [address], 07/26/2025 18:39:01 07/26/20 25 07/26/2025 imagi ng/di agnos tic resul t No observ ation record ed. [facility] [address] [place] [address], [address], 07/26/2025 18:39:01 08/14/20 25 08/14/2025 imagi ng/di agnos tic resul t No observ ation record ed. [facility] [address], [address], 08/14/2025 09:43:44 08/14/20 25 08/14/2025 imagi ng/di agnos tic resul t No observ ation record ed. [facility] [address] [place] [address], [address], 08/14/2025 14:53:30 Result Notes None recorded. Problems Name Problem SNOMED Code Status Onset Date Resolution Date Notes Provider Name and Address Organization Details Recorded Time Anxiety 04648989 Active 2024 Kristenmatias Ruffin [facility] 5 11:01:06 21287772 Active 2024 Aleah Bedolla [facility] 5 11:57:32 Platelet count below reference range 416075937 Active 2024 Referral faxed to [facility] 06/01 scheduled 06/20 0900 Level II us and consult Zoey Tarango [facility] 5 11:50:53 Problem Notes None recorded. Procedures Surgical History Date Name Laterality Status Provider Name and Address Organization Details Recorded Time 5 Date of Last Pap Smear completed Kristen Galvantz [facility] 01/13/2025 11:01:13 7 operative procedure on wrist completed Aleah Bedolla [facility] 02/10/2025 11:57:07 Imaging Results None [...] Updated DateTime 07/12/2025 170.18 cm 29 kg/m2 17455.59 g 120/78 mm[Hg] Isabel Romero [facility] 07/12/2025 14:04:56 Social History Question Answer Notes LastModified by Organizat ion Details LastModified Time Tobacco Smoking Status Never Smoker Kristen sánchez, [facility] 01/13/2025 11:05:22 If You Are , What Was Your Level Of Alcohol Consumption Prior To ? Occasional [email or web address] Information not available 01/13/2025 Are You Blind Or Do You Have Difficulty Seeing? No [email or web address] Information n ot available 01/13/2025 What Is Your Level Of Caffeine Consumption? Occasional [email or web address] Information not available 01/13/2025 In The 14 Days Before Symptom Onset, Have You Had Close Contact With A Laboratory-confirm ed COVID-19 While That Case Was Ill? No [email or web address] Information n ot available 01/13/2025 In The 14 Days Before Symptom Onset, Have You Had Close Contact With A Person Who Is Under Investigation For COVID-19 While That Person Was Ill? No [email or web address] Information not available 01/13/2025 Have You Been To An Area Known To Be High Risk For COVID-19? No [email or web address] Information not available 01/13/2025 Are You Deaf Or Do You Have Serious Difficulty Hearing? No [email or web address] Information not available 01/13/2025 Do You Have Smoke And Carbon Monoxide Detectors In Your Home? Yes [email or web address] Information not available 01/13/2025 Do You Use Sunscreen Routinely? Yes Information not available 01/13/2025 Has Tobacco Cessation Counseling Been Provided? No [email or web address] Information not available 01/13/2025 Have You Used IV Drugs? No Information not available 01/13/2025 Do You Have Difficulty Walking Or Climbing Stairs? No [email or web address] Information not available 01/13/2025 Sex: Unknown Functional Status Question Answer Note LastModified by Organizat ion Details LastModified Time Do you use any illicit or recreational drugs? No [email or web address] Information not available 01/13/2025 Do you or have you ever used any other forms of tobacco or nicotine? Yes [email or web address] Information not available 01/13/2025 What is your level of alcohol consumption? None [email or web address] Information not available 01/13/2025 Are you able to walk independently without assistance or assistive devices? YESWOREST [email or web address] Information not available 01/13/2025 Are you able to care for yourself independently? Yes [email or web address] Information not available 01/13/2025 Do you have difficulty dressing, bathing, grooming, or toileting? No [email or web address] Information not available 01/13/2025 Do you or have you ever used e-cigarettes or vape? Former user of electronic cigarettes [email or web address] Information not available 01/13/2025 Mental Status None recorded. Family History Relationship Description Onset Age of this Age Resolved Age Notes LastModified by Organization Details LastModified Time Unspecified Relation Family history unknown [email or web address] Not available 2024 13:48:03 Paternal Grandfather Malignant neoplasm of prostate [email or web address] Not available 07/31 15:39:21 Maternal Grandfather Malignant neoplasm of lung [email or web address] Not available 01/13 11:03:40 Maternal Grandmother Malignant neoplasm of pancreas [email or web address] Not available 07/31 15:39:21 Maternal Aunt Malignant neoplasm of breast Not available 2024 13:48:03 Father Leukemia [email or web address] Not availa ble 08/10/2025 15:39:21 Mother Diabetes mellitus [email or web address] Not available 01/13 11:04:57 Medical History Condition [...] ICD10 Code Diagnosis IMO Codes Diagnosis Note [id number] JOLIE TOMLINSON MD [place] [address] [address] 06/13/2025 15:20:18 06/13/2025 16:44:44 Platelet count below reference range 619053772 D69.6 58757884 - plt 125>131>11 3- MFM consult Gestation period, 30 weeks 88963369 Z3A.30 4980139 [id number] JOLIE TOMLINSON MD [place] [address] [address] 06/30/2025 11:40:05 06/30/2025 12:44:02 Platelet count below reference range 212001996 D69.6 77902877 - plt 125>131>11 3- MFM consult Gestation period, 32 weeks 4393329 Z3A.32 1995755 - continue PNV [id number] JOLIE TOMLINSON MD [place] [address],[place] [address] 07/12/2025 13:47:56 07/14/2025 11:51:27 Thrombocytopenic disorder 060896334 D69.6 36698 - plt 125>131>77 - repeat today- MFM consult Gestation period, 34 weeks 17407210 Z3A.34 8344860 - continue PNV Health Concerns Section Related Observation LastModified by Organization Detai ls LastModified Time None Recorded Concern Status LastModified by Organization Details LastModified Time None Recorded Payers Encounter Date Sequence Insurance Name Policy Number Policy Marie Covered Member ID Marie Member ID Guarantor Name 07/12/2025 2 [place] [employer] Gabby Jose [id number] Kya Angulo 07/12/2025 1 [place] [id number] Kya Angulo [id number] Kya Angulo Notes Date Note Type Note Provider Name and Address Organization Details Recorded Time 07/12/2025 text/html Generic HPI TemplateReported by Patient JOLIE TOMLINSON MD [address], [place], [address], [place] [facility] 07/14/2025 11:42:33 OBGyn Episode Ob Episode Information Episode Created Date Number of Fetuses Patient Bloodtype Patient rh Status Prepregnancy Weight lbs Domestic Partner Domestic Partner Phone Father Name Rail Walker Status 02/11/20 25 1 O Positive 150 Jovany Echeverria OPEN Fetus Data First Name Last Name Admitted to NICU Weight (g) Sex Living Outcome Pediatric Complications Fetus ID Race Codes Race Delivery Type [id number] Problems Problem Notes RSV vaccine received 07/04/25 . Problem Name Start Date End Date Resolution Snomed Code Not e Platelet count below reference range 06/01/2025 [id number] Referral fax ed to [facility] 06/01 scheduled 06/20 0900 Level II [...] Date Ultra Sound Latest Days Gestation 0 [email or web address] 02/10/2025 08/21/20 25 0 Pre- Flowsheet Flowsheet Date 02/10/2025 Kirkland Score Blood Edema Fundus Height Fundus Units Glucose Ketones Leukocytes Nitrite Labor Signs Protein Cervic Dilation Cervic Effacement Cervic Station Type Weight in lbs Pre/Post Dialysis Refused Weight 153.106568658406 BP Diastolic BP Location Tested BP Systolic BP Type 77 L arm 122 sitting Fetus Heart Rate Present A Present Fetus Movement Comments [facility]. otherwise uncomplicated. No bleeding [...] Weight in lbs Pre/Post Dialysis Refused Weight 156.659171412192 BP Diastolic BP Location Tested BP Systolic [...] Weight in lbs Pre/Post Dialysis Refused Weight 160.162515018337 BP Diastolic BP Location Tested BP Systolic [...] Weight in lbs Pre/Post Dialysis Refused Weight 165.177654107994 BP Diastolic BP Location Tested BP Systolic [...] Type Weight in lbs Pre/Post Dialysis Refused 176.671230356566 BP Diastolic BP Location Tested BP Systolic BP Type 78 L arm 118 sitting Fetus Heart Rate Present A 150 Fetus Movement A Yes Comments Had an episode of DFM yester day, went to [place] and had negative workup. No cramping or bleeding. GCT and labs today, will draw CBC as well. Discussed Tdap, RSV, and flu vaccines. RTC 2 weeks. Flowsheet Date 06/13/2025 Kirkland Score Blood Edema Fundus Height Fundus Units Glucose Ketones Leukocytes Nitrite Labor Signs Protein Cervic Dilation Cervic Effacement Cervic Station Type Weight in lbs Pre/Post Dialysis Refused 181.653778495300 BP Diastolic BP Location Tested BP Systolic [...] Weight in lbs Pre/Post Dialysis Refused Weight 178.831968429647 BP Diastolic BP Location Tested BP Systolic BP Type 78 L arm 112 sitting Fetus Heart Rate Present A 140 Fetus Movement A Yes Comments Good movement. No cram ping or bleeding. Saw MFM, recommend platelet counts every visit. Workers Compensation Claims Analyst appointment next week to determine if autoimmune vs gestational. EFW 92%, AC 93%; discussed 39 week induction, plan for 12/15 PM. Preadmission scheduled. RSV vaccine discussed. RTC 2 weeks. Flowsheet Date 07/12/2025 Kirkland Score Blood Edema Fundus Height Fundus Units Glucose Ketones Leukocytes Nitrite Labor Signs Protein Cervic Dilation Cervic Effacement Cervic Station Type Weight in lbs Pre/Post Dialysis Refused Weight 185.105804202814 BP Diastolic BP Location Tested BP Systolic [...] Weight in lbs Pre/Post Dialysis Refused Weight 186.651757992394 BP Diastolic BP Location Tested BP Systolic [...] Weight in lbs Pre/Post Dialysis Refused Weight 187.656054827806 BP Diastolic BP Location Tested BP Systolic [...] Weight in lbs Pre/Post Dialysis Refused Weight 189.750566608340 BP Diastolic BP Location Tested BP Systolic [...]
--- OUTSIDE RECORDS SUMMARY | 2025-08-14 17:58 | XMS_ITS | Continuity of Care Document ---
Author Organization [facility] Address [address] [place] [address] Care Team Providers Care Seat Pack Inspector Name Role Phone SHERYL DICKSON Primary Care Provider Assessment No assessment recorded. Plan of Treatment Reminders Order Date Submit Date Provider Last Modified By Organization Details Last Modified Time Details Appointments INDUCTION 2024 04:00P Cosmo TOMLINSON MD Not available Not available Not available Lab CBC w/ auto diff 2024 025 [facility] (Lab), [address], [place], [address], 08/11/2025 09:03:58 Referral None recorded. Procedures None recorded. Surgeries [...] [facility] [address], [place], [address], 02/16/2025 19:59:32 02/17/20 25 02/16/2025 [UNIT Y] ANEUP LOIDY NIPT 22Q11.2 microdeletio n LOW RISK <1 in 10,000 normal Not Available [facility] [address], [place], [address], 02/16/2025 19:59:32 02/17/20 25 02/16/2025 [UNIT Y] ANEUP LOIDY NIPT sex chromosome aneuploidy NOT DETECT ED normal Not Available [facility] [address], [place], [address], 02/16/2025 19:59:32 02/17/20 25 02/16/2025 [UNIT Y] ANEUP LOIDY NIPT monosomy X LOW RISK <1 in 10,000 normal Not Available [facility] [address], [place], [address], 02/16/2025 19:59:32 02/17/20 25 02/16/2025 [UNIT Y] ANEUP LOIDY NIPT trisomy 13 LOW RISK <1 in 10,000 normal Not Available [facility] [address], [place], [address], 02/16/2025 19:59:32 02/17/20 25 02/16/2025 [UNIT Y] ANEUP LOIDY NIPT trisomy 18 LOW RISK <1 in 10,000 normal Not Available [facility] [address], [place], [address], 02/16/2025 19:59:32 02/17/20 25 02/16/2025 [UNIT Y] ANEUP LOIDY NIPT trisomy 21 LOW RISK <1 in 10,000 normal Not Available [facility] [address], [place], [address], 02/16/2025 19:59:32 02/17/20 25 02/16/2025 [UNIT Y] ANEUP LOIDY NIPT sex MALE normal Not Available [facility] [address], [place], [address], 02/16/2025 19:59:32 02/17/20 25 02/16/2025 [UNIT Y] ANEUP LOIDY NIPT gestation SINGLE TON normal Not Available [facility] [address], [place], [address], 02/16/2025 19:59:32 02/17/20 25 02/16/2025 [UNIT Y] ANEUAnuradha AUGUSTINT for detailed report, see pdf See PDF normal Not Available [facility] [address], [place], [address], 02/16/2025 19:59:32 02/22/20 25 02/21/2025 [UNIT Y] FLETCHER Rose sickle cell disease/beta -thalassemia /hemoglobino pathies carrier screen NEGATI VE normal Not Available [facility] [address], [place], [address], 02/21/2025 14:09:41 02/22/20 25 02/21/2025 [UNIT Y] FLETCHER Rose alpha-thalas semia carrier screen NEGATI VE normal Not Available [facility] [address], [place], [address], 02/21/2025 14:09:41 02/22/20 25 02/21/2025 [UNIT Y] FLETCHER Rose cystic fibrosis carrier screen NEGATI VE normal Not Available [facility] [address], [place], [address], 02/21/2025 14:09:41 02/22/20 25 02/21/2025 [UNIT Y] FLETCHER Rose spinal muscular atrophy carrier screen NEGATI VE 2 SMN1 copies , SNP not presen t normal Not Available [facility] [address], [place], [address], 02/21/2025 14:09:41 02/22/20 25 02/21/2025 [UNIT Y] FLETCHER Rose for detailed report, see pdf See PDF normal Not Available [facility] [address], [place], [address], 02/21/2025 14:09:41 02/11/2002/10/2025 CT/GC AND TRICH OMONA S VAGIN KARLO (RRNA ), URINE chlamydia trachomatis, PCR Negati ve negati ve Not Available [facility] (Lab) [address], [place], [address], 02/11/2025 12:05:33 02/11/20 25 02/10/2025 CT/GC AND TRICH OMONA S VAGIN KARLO (RRNA ), URINE neisseria gonorrhoeae, PCR Negati ve negati ve Not Available [facility] (Lab) [address], [place], [address], 02/11/2025 12:05:33 02/11/2002/10/2025 CT/GC AND TRICH OMONA S VAGIN KARLO (RRNA ), URINE trichomonas vaginalis ribosomal RNA (rrna) Negati ve negati ve Not Available [facility] (Lab) [address] [facility], [place], [address], 02/11/2025 12:05:33 02/11/20 25 02/10/2025 CBC W/DIF F WBC 8.7 10'3/ uL 3.5-10 .5 Not Available [facility] (Lab) [address], [place], [address], 02/11/2025 13:44:37 02/11/20 25 02/10/2025 CBC W/DIF F RBC 4.55 10'6/ uL (based on docume nted legal sex) 3.80-5 .20 Not Available [facility] (Lab) [address], [place], [address], 02/11/2025 13:44:37 02/11/20 25 02/10/2025 CBC W/DIF F HGB 13.7 g/dL (based on docume nted legal sex) 11.6-1 5.4 Not Available [facility] (Lab) [address] [facility], [place], [address], 02/11/2025 13:44:37 02/11/20 25 02/10/2025 CBC W/DIF F HCT 40.8 % (based on docume nted legal sex) 34.0-4 5.0 Not Available [facility] (Lab) [address], [place], [address], 02/11/2025 13:44:37 02/11/20 25 02/10/2025 CBC W/DIF F MCV 89.7 fL 80.0-9 9.0 Not Available [facility] (Lab) [address], [place], [address], 02/11/2025 13:44:37 02/11/20 25 02/10/2025 CBC W/DIF F MCH 30.1 pg 27.0-3 4.0 Not Available [facility] (Lab) [address], [place], [address], 02/11/2025 13:44:37 02/11/20 25 02/10/2025 CBC W/DIF F MCHC 33.6 g/dL 32.0-3 5.5 Not Available [facility] (Lab) [address], [place], [address], 02/11/2025 13:44:37 02/11/20 25 02/10/2025 CBC W/DIF F RDW 12.8 % 11.0-1 5.0 Not Available [facility] (Lab) [address] , [place], [address], 02/11/2025 13:44:37 02/11/20 25 02/10/2025 CBC W/DIF F plt 125 10'3/ uL 150-40 0 low Not Available [facility] (Lab) [address] [place], [address], 02/11/2025 13:44:37 02/11/20 25 02/10/2025 CBC W/DIF F MPV 13.5 fL 8.8-12 .1 high Not Available [facility] (Lab) [address], [place], [address], 02/11/2025 13:44:37 02/11/20 25 02/10/2025 CBC W/DIF F NRBC's 0.0 % 0.0 Not Available [facility] (Lab) [address], [place], [address], 02/11/2025 13:44:37 02/11/20 25 02/10/2025 CBC W/DIF F absolute NRBCs 0.0 10'3/ uL no refere nce range establ ished Not Available [facility] (Lab) [address], [place], [address], 02/11/2025 13:44:37 02/11/20 25 02/10/2025 CBC W/DIF F neutrophils 76.5 % 34.0-7 3.0 high Not Available [facility] (Lab) [address], [place], [address], 02/11/2025 13:44:37 02/11/20 25 02/10/2025 CBC W/DIF F lymphocytes 14.4 % 15.0-5 0.0 low Not Available [facility] (Lab) [address], [place], [address], 02/11/2025 13:44:37 02/11/20 25 02/10/2025 CBC W/DIF F monocytes 8.3 % 1.0-15 .0 Not Available [facility] (Lab) [address], [place], [address], 02/11/2025 13:44:37 02/11/20 25 02/10/2025 CBC W/DIF F eosinophils 0.3 % 0.0-8. 0 Not Available [facility] (Lab) [address] [place], [address], 02/11/2025 13:44:37 02/11/20 25 02/10/2025 CBC W/DIF F basophils 0.3 % 0.0-2. 0 Not Available [facility] (Lab) [address], [place], [address], 02/11/2025 13:44:37 02/11/2002/10/2025 CBC W/DIF F immature granulocytes 0.2 % no define d refere nce range Immat ure Granu locyt es (IG) repre sents autom ated enume ratio n of Metam yeloc ytes, Myelo cytes and Promy elocy umair when IG is < 5%. Blast s are not inclu ded in IG and repor alfredo separ ately if prese nt. Not Available [facility] (Lab) [address], [place], [address], 02/11/2025 13:44:37 02/11/20 25 02/10/2025 CBC W/DIF F absolute neutrophils 6.6 10'3/ uL 1.5-8. 0 Not Available [facility] (Lab) [address], [place], [address], 02/11/2025 13:44:37 02/11/20 25 02/10/2025 CBC W/DIF F absolute lymphocytes 1.3 10'3/ uL 1.0-4. 0 Not Available [facility] (Lab) [address], [place], [address], 02/11/2025 13:44:37 02/11/20 25 02/10/2025 CBC W/DIF F absolute monocytes 0.7 10'3/ uL 0.2-1. 0 Not Available [facility] (Lab) [address], [place], [address], 02/11/2025 13:44:37 02/11/20 25 02/10/2025 CBC W/DIF F absolute eosinophils 0.0 10'3/ uL 0.0-0. 6 Not Available [facility] (Lab) [address], [place], [address], 02/11/2025 13:44:37 02/11/20 25 02/10/2025 CBC W/DIF F absolute basophils 0.0 10'3/ uL 0.0-0. 3 Not Available [facility] (Lab) [address], [place], [address], 02/11/2025 13:44:37 02/11/20 25 02/10/2025 CBC W/DIF [...] and book. nm.or g/gen derx Not Available [facility] (Lab) [address], [place], [address], 02/11/2025 13:44:37 02/11/20 25 02/10/2025 HIV 1/2 ANTIG EN/AN TIBOD Y, REFLE X CONFI RMATI ON HIV antigen/anti body Nonrea ctive nonrea ctive HIV-1 antig en and HIV-1 /HIV- 2 antib odies were not detec alfredo. No labor atory evide nce of HIV infec tion. Not Available [facility] (Lab) [address], [place], [address], 02/11/2025 13:44:38 02/11/2002/10/2025 HEPAT ITIS B SURFA CE ANTIG EN hepatitis B surface antigen Non-re active non-re active This assay was perfo rmed using [employer] ratio n reage nts and test kits. Value s obtai evelyn with other assay metho ds or kits canno t be used inter collins eably . Not Available [facility] (Lab) [address], [place], [address], 02/11/2025 13:44:38 02/11/2002/10/2025 HEPAT ITIS C ANTIB TIM SCREE N, REFLE X TO CONFI RMATI ON hepatitis C antibody Non-re active non-re active Antib odies to HCV Not Detec alfredo, does not exclu de the possi bilit y of expos ure to HCV. Not Available [facility] (Lab) [address], [place], [address], 02/11/2025 13:44:39 02/11/20 25 02/10/2025 RUBEL LA IGG ANTIB TIM, QUANT rubella antibodies, IgG Reacti ve reacti ve Not Available [facility] (Lab) [address], [place], [address], 02/11/2025 13:44:39 02/11/20 25 02/10/2025 RUBEL LA IGG ANTIB TIM, QUANT rubella antibodies, IgG quant 47.1 IU/mL >=10 Non-r eacti ve (Non- Immun e) <10 IU/mL React kvng (Immu ne) > or = 10 IU/mL Not Available [facility] (Lab) [address] , [place], [address], 02/11/2025 13:44:39 02/11/20 25 02/10/2025 TYPE/ RH/SC REEN ABO/Rh type O POS Not Available [facility] (Lab) [address], [place], [address], 02/11/2025 13:44:40 02/11/2002/10/2025 TYPE/ RH/SC REEN antibody screen NEG Not Available [facility] (Lab) [address], [place], [address], 02/11/2025 13:44:40 02/11/20 25 02/10/2025 TYPE/ RH/SC REEN exp date 2024 23:59 Not Available [facility] (Lab) [address], [place], [address], 02/11/2025 13:44:40 02/11/20 25 02/10/2025 HEMOG LOBIN [...] >8.0% Actio n sugge sted Not Available [facility] (Lab) [address], [place], [address], 02/11/2025 13:44:40 02/11/20 25 02/10/2025 RPR SCREE N, REFLE X TITER /CONF IRMAT ION RPR qualitative Nonrea ctive nonrea ctive Not Available [facility] (Lab) [address], [place], [address], 02/11/2025 13:44:41 02/11/20 25 02/10/2025 drug scree n, urine Amphetamines : negati ve Not Available [place] [place] [address], [place], [address], 02/10/2025 12:55:20 02/11/20 25 02/10/2025 drug scree n, urine Cannabinoids : negati ve Not Available [place] [place] [address], [place], [address], 02/10/2025 12:55:20 02/11/20 25 02/10/2025 drug scree n, urine Cocaine: negati ve Not Available [place] [place] [address], [place], [address], 02/10/2025 12:55:20 02/11/20 02/10/2025 drug scree n, urine Opiates: negati ve Not Available [place] [place] [address], [place], [address], 02/10/2025 12:55:20 02/11/20 25 02/10/2025 drug scree n, urine Barbiturates : negati ve Not Available [place] [place] [address], [place], [address], 02/10/2025 12:55:20 02/11/20 25 02/10/2025 drug scree n, urine Benzodiazepi john: negati ve Not Available [place] [place] [address], [place], [address], 02/10/2025 12:55:20 03/10/20 25 03/10/2025 CULTU RE: URINE result report SEE RESULT S BELOW Test: Cultu re: Urine Speci men Sourc e: Urine Voide d Speci men Type: Urine Speci men Date: 2024 0938 Resul t Date: 20242 Resul t Statu s: Final resul t Abnor mal: No Resul ting Lab: [facility] [address] [facility] [address] Tel: CULTU RE ----- ----- ----- --- No growt h in 1 day (dete ction level of 10,00 0 colon ies / ml.) Not Available [facility] (Lab) [address] [place], [address], 03/11/2025 23:15:50 04/03/20 25 04/03/2025 CBC W/DIF F WBC 12.9 10'3/ uL 3.5-10 .5 high Not Available [facility] (Lab) [address], [place], [address], 04/04/2025 04:39:51 04/03/20 25 04/03/2025 CBC W/DIF F RBC 4.33 10'6/ uL (based on docume nted legal sex) 3.80-5 .20 Not Available [facility] (Lab) [address], [place], [address], 04/04/2025 04:39:51 04/03/2004/03/2025 CBC W/DIF F HGB 13.2 g/dL (based on docume nted legal sex) 11.6-1 5.4 Not Available [facility] (Lab) [address], [place], [address], 04/04/2025 04:39:51 04/03/2004/03/2025 CBC W/DIF F HCT 40.2 % (based on docume nted legal sex) 34.0-4 5.0 Not Available [facility] (Lab) [address], [place], [address], 04/04/2025 04:39:51 04/03/2004/03/2025 CBC W/DIF F MCV 92.8 fL 80.0-9 9.0 Not Available [facility] (Lab) [address], [place], [address], 04/04/2025 04:39:51 04/03/2004/03/2025 CBC W/DIF F MCH 30.5 pg 27.0-3 4.0 Not Available [facility] (Lab) [address] [place], [address], 04/04/2025 04:39:51 04/03/2004/03/2025 CBC W/DIF F MCHC 32.8 g/dL 32.0-3 5.5 Not Available [facility] (Lab) [address] [place], [address], 04/04/2025 04:39:51 04/03/20 25 04/03/2025 CBC W/DIF F RDW 13.0 % 11.0-1 5.0 Not Available [facility] (Lab) [address] [place], [address], 04/04/2025 04:39:51 04/03/2004/03/2025 CBC W/DIF F plt 131 10'3/ uL 150-40 0 low Not Available [facility] (Lab) [address] [facility], [place], [address], 04/04/2025 04:39:51 04/03/2004/03/2025 CBC W/DIF F MPV 13.9 fL 8.8-12 .1 high Not Available [facility] (Lab) [address] [facility], [place], [address], 04/04/2025 04:39:51 04/03/2004/03/2025 CBC W/DIF F NRBC's 0.0 % 0.0 Not Available [facility] (Lab) [address], [place], [address], 04/04/2025 04:39:51 04/03/2004/03/2025 CBC W/DIF F absolute NRBCs 0.0 10'3/ uL no refere nce range establ ished Not Available [facility] (Lab) [address], [place], [address], 04/04/2025 04:39:51 04/03/2004/03/2025 CBC W/DIF F neutrophils 76.6 % 34.0-7 3.0 high Not Available [facility] (Lab) [address] [facility], [place], [address], 04/04/2025 04:39:51 04/03/2004/03/2025 CBC W/DIF F lymphocytes 14.2 % 15.0-5 0.0 low Not Available [facility] (Lab) [address] [facility], [place], [address], 04/04/2025 04:39:51 04/03/2004/03/2025 CBC W/DIF F monocytes 7.6 % 1.0-15 .0 Not Available [facility] (Lab) [address] [facility], [place], [address], 04/04/2025 04:39:51 04/03/20 25 04/03/2025 CBC W/DIF F eosinophils 0.7 % 0.0-8. 0 Not Available [facility] (Lab) [address] [facility], [place], [address], 04/04/2025 04:39:51 04/03/20 25 04/03/2025 CBC W/DIF F basophils 0.4 % 0.0-2. 0 Not Available [facility] (Lab) [address] [facility], [place], [address], 04/04/2025 04:39:51 04/03/20 25 04/03/2025 CBC W/DIF [...] separ ately if prese nt. Not Available [facility] (Lab) [address] [facility], [place], [address], 04/04/2025 04:39:51 04/03/2004/03/2025 CBC W/DIF F absolute neutrophils 9.9 10'3/ uL 1.5-8. 0 high Not Available [facility] (Lab) [address] [facility], [place], [address], 04/04/2025 04:39:51 04/03/2004/03/2025 CBC W/DIF F absolute lymphocytes 1.8 10'3/ uL 1.0-4. 0 Not Available [facility] (Lab) [address] [facility], [place], [address], 04/04/2025 04:39:51 04/03/20 25 04/03/2025 CBC W/DIF F absolute monocytes 1.0 10'3/ uL 0.2-1. 0 Not Available [facility] (Lab) [address] [facility], [place], [address], 04/04/2025 04:39:51 04/03/2004/03/2025 CBC W/DIF F absolute eosinophils 0.1 10'3/ uL 0.0-0. 6 Not Available [facility] (Lab) [address] [place], [address], 04/04/2025 04:39:51 04/03/2004/03/2025 CBC W/DIF F absolute basophils 0.1 10'3/ uL 0.0-0. 3 Not Available [facility] (Lab) [address] [facility], [place], [address], 04/04/2025 04:39:51 04/03/2004/03/2025 CBC W/DIF F absolute [...] calzada book. nm.or g/gen derx Not Available [facility] (Lab) [address] [facility], [place], [address], 04/04/2025 04:39:51 05/02/2005/02/2025 CULTU RE: URINE result report SEE RESULT S BELOW Test: Cultu re: Urine Speci men Sourc e: Urine - Clean Catch Speci men Type: Urine Speci men Date: 1502 Resul t Date: 0404 Resul t Statu s: Final resul t Abnor mal: No Resul ting Lab: [facility] [address] [facility] [address] Tel: CULTU RE ----- ----- ----- --- No growt h in 1 day (dete ction level of 10,00 0 colon ies / ml.) Not Available [facility] (Lab) [address], [place], [address], 05/04/2025 05:09:17 05/30/2005/30/2025 CBC W/DIF F WBC 11.9 10'3/ uL 3.5-10 .5 high Not Available [facility] (Lab) [address], [place], [address], 05/31/2025 12:26:07 05/30/20 25 05/30/2025 CBC W/DIF F RBC 3.98 10'6/ uL (based on docume nted legal sex) 3.80-5 .20 Not Available [facility] (Lab) [address], [place], [address], 05/31/2025 12:26:07 05/30/20 25 05/30/2025 CBC W/DIF F HGB 12.4 g/dL (based on docume nted legal sex) 11.6-1 5.4 Not Available [facility] (Lab) [address], [place], [address], 05/31/2025 12:26:07 05/30/20 25 05/30/2025 CBC W/DIF F HCT 36.8 % (based on docume nted legal sex) 34.0-4 5.0 Not Available [facility] (Lab) [address], [place], [address], 05/31/2025 12:26:07 05/30/20 25 05/30/2025 CBC W/DIF F MCV 92.5 fL 80.0-9 9.0 Not Available [facility] (Lab) [address], [place], [address], 05/31/2025 12:26:07 05/30/20 25 05/30/2025 CBC W/DIF F MCH 31.2 pg 27.0-3 4.0 Not Available [facility] (Lab) [address], [place], [address], 05/31/2025 12:26:07 05/30/20 25 05/30/2025 CBC W/DIF F MCHC 33.7 g/dL 32.0-3 5.5 Not Available [facility] (Lab) [address], [place], [address], 05/31/2025 12:26:07 05/30/20 25 05/30/2025 CBC W/DIF F RDW 13.4 % 11.0-1 5.0 Not Available [facility] (Lab) [address], [place], [address], 05/31/2025 12:26:07 05/30/20 25 05/30/2025 CBC W/DIF F plt 113 10'3/ uL 150-40 0 low Not Available [facility] (Lab) [address] [facility], [place], [address], 05/31/2025 12:26:07 05/30/20 25 05/30/2025 CBC W/DIF F MPV 13.8 fL 8.8-12 .1 high Not Available [facility] (Lab) [address], [place], [address], 05/31/2025 12:26:07 05/30/20 25 05/30/2025 CBC W/DIF F NRBC's 0.0 % 0.0 Not Available [facility] (Lab) [address], [place], [address], 05/31/2025 12:26:07 05/30/20 25 05/30/2025 CBC W/DIF F absolute NRBCs 0.0 10'3/ uL no refere nce range establ ished Not Available [facility] (Lab) [address] [facility], [place], [address], 05/31/2025 12:26:07 05/30/20 25 05/30/2025 CBC W/DIF F neutrophils 79.4 % 34.0-7 3.0 high Not Available [facility] ([facility]) [address] [facility], [place], [address], 05/31/2025 12:26:07 05/30/20 25 05/30/2025 CBC W/DIF F lymphocytes 10.8 % 15.0-5 0.0 low Not Available [facility] ([facility]) [address] [facility], [place], [address], 05/31/2025 12:26:07 05/30/20 25 05/30/2025 CBC W/DIF F monocytes 7.7 % 1.0-15 .0 Not Available [facility] ([facility]) [address] [facility], [place], [address], 05/31/2025 12:26:07 05/30/20 25 05/30/2025 CBC W/DIF F eosinophils 0.8 % 0.0-8. 0 Not Available [facility] (Lab) [address] [place], [address], 05/31/2025 12:26:07 05/30/20 25 05/30/2025 CBC W/DIF F basophils 0.4 % 0.0-2. 0 Not Available [facility] (Lab) [address] [place], [address], 05/31/2025 12:26:07 05/30/20 25 05/30/2025 CBC W/DIF [...] separ ately if prese nt. Not Available [facility] ([facility]) [address] [place], [address], 05/31/2025 12:26:07 05/30/20 25 05/30/2025 CBC W/DIF F absolute neutrophils 9.5 10'3/ uL 1.5-8. 0 high Not Available [facility] ([facility]) [address] [facility], [place], [address], 05/31/2025 12:26:07 05/30/20 25 05/30/2025 CBC W/DIF F absolute lymphocytes 1.3 10'3/ uL 1.0-4. 0 Not Available [facility] ([facility]) [address] [facility], [place], [address], 05/31/2025 12:26:07 05/30/20 25 05/30/2025 CBC W/DIF F absolute monocytes 0.9 10'3/ uL 0.2-1. 0 Not Available [facility] ([facility]) [address] [facility], [place], [address], 05/31/2025 12:26:07 05/30/20 25 05/30/2025 CBC W/DIF F absolute eosinophils 0.1 10'3/ uL 0.0-0. 6 Not Available [facility] ([facility]) [address] [facility], [place], [address], 05/31/2025 12:26:07 05/30/20 25 05/30/2025 CBC W/DIF F absolute basophils 0.1 10'3/ uL 0.0-0. 3 Not Available [facility] ([facility]) [address] [facility], [place], [address], 05/31/2025 12:26:07 05/30/20 25 05/30/2025 CBC W/DIF [...] calzada book. nm.or g/gen derx Not Available [facility] (Lab) [address] [place], [address], 05/31/2025 12:26:07 05/30/20 25 05/30/2025 HIV 1/2 ANTIG EN/AN TIBOD Y, REFLE X CONFI RMATI ON HIV antigen/anti body Nonrea ctive nonrea ctive HIV-1 antig en and HIV-1 /HIV- 2 antib odies were not detec alfredo. No labor atory evide nce of HIV infec tion. Not Available [facility] (Lab) [address], [place], [address], 05/31/2025 12:26:07 05/30/20 25 05/30/2025 GTT - GESTA REGAN L SCREE N, ACOG OB glucose, 1 hour screen 82 mg/dL 70-135 Not Available [facility] (Lab) [address], [place], [address], 05/31/2025 12:26:08 05/30/20 25 05/30/2025 RPR SCREE N, REFLE X TITER /CONF IRMAT ION RPR qualitative Nonrea ctive nonrea ctive Not Available [facility] (Lab) [address], [place], [address], 05/31/2025 12:26:08 06/30/20 25 06/30/2025 CBC W/DIF F WBC 11.6 10'3/ uL 3.5-10 .5 high Not Available [facility] (Lab) [address], [place], [address], 07/01/2025 02:43:32 06/30/20 25 06/30/2025 CBC W/DIF F RBC 3.97 10'6/ uL (based on docume nted legal sex) 3.80-5 .20 Not Available [facility] (Lab) [address], [place], [address], 07/01/2025 02:43:32 06/30/20 25 06/30/2025 CBC W/DIF F HGB 12.4 g/dL (based on docume nted legal sex) 11.6-1 5.4 Not Available [facility] (Lab) [address], [place], [address], 07/01/2025 02:43:32 06/30/20 25 06/30/2025 CBC W/DIF F HCT 35.3 % (based on docume nted legal sex) 34.0-4 5.0 Not Available [facility] (Lab) [address], [place], [address], 07/01/2025 02:43:32 06/30/20 25 06/30/2025 CBC W/DIF F MCV 88.9 fL 80.0-9 9.0 Not Available [facility] (Lab) [address], [place], [address], 07/01/2025 02:43:32 06/30/20 25 06/30/2025 CBC W/DIF F MCH 31.2 pg 27.0-3 4.0 Not Available [facility] (Lab) [address], [place], [address], 07/01/2025 02:43:32 06/30/20 25 06/30/2025 CBC W/DIF F MCHC 35.1 g/dL 32.0-3 5.5 Not Available [facility] (Lab) [address], [place], [address], 07/01/2025 02:43:32 06/30/20 25 06/30/2025 CBC W/DIF F RDW 13.2 % 11.0-1 5.0 Not Available [facility] (Lab) [address], [place], [address], 07/01/2025 02:43:32 06/30/20 25 06/30/2025 CBC W/DIF F plt 106 10'3/ uL 150-40 0 low Not Available [facility] (Lab) [address] [facility], [place], [address], 07/01/2025 02:43:32 06/30/20 25 06/30/2025 CBC W/DIF F MPV 13.2 fL 8.8-12 .1 high Not Available [facility] (Lab) [address] [facility], [place], [address], 07/01/2025 02:43:32 06/30/20 25 06/30/2025 CBC W/DIF F NRBC's 0.0 % 0.0 Not Available [facility] (Lab) [address] [facility], [place], [address], 07/01/2025 02:43:32 06/30/20 25 06/30/2025 CBC W/DIF F absolute NRBCs 0.0 10'3/ uL no refere nce range establ ished Not Available [facility] (Lab) [address] [facility], [place], [address], 07/01/2025 02:43:32 06/30/20 25 06/30/2025 CBC W/DIF F neutrophils 77.2 % 34.0-7 3.0 high Not Available [facility] (Lab) [address] [facility], [place], [address], 07/01/2025 02:43:32 06/30/20 25 06/30/2025 CBC W/DIF F lymphocytes 13.2 % 15.0-5 0.0 low Not Available [facility] (Lab) [address] [facility], [place], [address], 07/01/2025 02:43:32 06/30/20 25 06/30/2025 CBC W/DIF F monocytes 7.5 % 1.0-15 .0 Not Available [facility] (Lab) [address] [facility] [place], [address], 07/01/2025 02:43:32 06/30/20 25 06/30/2025 CBC W/DIF F eosinophils 0.9 % 0.0-8. 0 Not Available [facility] (Lab) [address] [facility], [place], [address], 07/01/2025 02:43:32 06/30/20 25 06/30/2025 CBC W/DIF F basophils 0.4 % 0.0-2. 0 Not Available [facility] (Lab) [address] [facility], [place], [address], 07/01/2025 02:43:32 06/30/20 25 06/30/2025 CBC W/DIF [...] separ ately if prese nt. Not Available [facility] (Lab) [address] [facility], [place], [address], 07/01/2025 02:43:32 06/30/20 25 06/30/2025 CBC W/DIF F absolute neutrophils 8.9 10'3/ uL 1.5-8. 0 high Not Available [facility] (Lab) [address] [facility], [place], [address], 07/01/2025 02:43:32 06/30/20 25 06/30/2025 CBC W/DIF F absolute lymphocytes 1.5 10'3/ uL 1.0-4. 0 Not Available [facility] (Lab) [address] [facility], [place], [address], 07/01/2025 02:43:32 06/30/20 25 06/30/2025 CBC W/DIF F absolute monocytes 0.9 10'3/ uL 0.2-1. 0 Not Available [facility] (Lab) [address], [place], [address], 07/01/2025 02:43:32 06/30/20 25 06/30/2025 CBC W/DIF F absolute eosinophils 0.1 10'3/ uL 0.0-0. 6 Not Available [facility] (Lab) [address], [place], [address], 07/01/2025 02:43:32 06/30/20 25 06/30/2025 CBC W/DIF F absolute basophils 0.1 10'3/ uL 0.0-0. 3 Not Available [facility] (Lab) [address], [place], [address], 07/01/2025 02:43:32 06/30/20 25 06/30/2025 CBC W/DIF [...] calzada book. nm.or g/gen derx Not Available [facility] (Lab) [address], [place], [address], 07/01/2025 02:43:32 07/12/20 25 07/12/2025 CBC W/DIF F WBC 13.2 10'3/ uL 3.5-10 .5 high Not Available [facility] (Lab) [address], [place], [address], 07/13/2025 05:59:18 07/12/20 25 07/12/2025 CBC W/DIF F RBC 3.94 10'6/ uL (based on docume nted legal sex) 3.80-5 .20 Not Available [facility] (Lab) [address], [place], [address], 07/13/2025 05:59:18 07/12/20 25 07/12/2025 CBC W/DIF F HGB 11.9 g/dL (based on docume nted legal sex) 11.6-1 5.4 Not Available [facility] (Lab) [address], [place], [address], 07/13/2025 05:59:18 07/12/20 25 07/12/2025 CBC W/DIF F HCT 34.9 % (based on docume nted legal sex) 34.0-4 5.0 Not Available [facility] (Lab) [address], [place], [address], 07/13/2025 05:59:18 07/12/20 25 07/12/2025 CBC W/DIF F MCV 88.6 fL 80.0-9 9.0 Not Available [facility] (Lab) [address], [place], [address], 07/13/2025 05:59:18 07/12/20 25 07/12/2025 CBC W/DIF F MCH 30.2 pg 27.0-3 4.0 Not Available [facility] (Lab) [address], [place], [address], 07/13/2025 05:59:18 07/12/20 25 07/12/2025 CBC W/DIF F MCHC 34.1 g/dL 32.0-3 5.5 Not Available [facility] (Lab) [address] [facility], [place], [address], 07/13/2025 05:59:18 07/12/20 25 07/12/2025 CBC W/DIF F RDW 13.0 % 11.0-1 5.0 Not Available [facility] (Lab) [address] [facility], [place], [address], 07/13/2025 05:59:18 11/12/20 25 07/12/2025 CBC W/DIF F plt 110 10'3/ uL 150-40 0 low Not Available [facility] (Lab) [address], [place], [address], 07/13/2025 05:59:18 07/12/20 25 07/12/2025 CBC W/DIF F MPV 12.9 fL 8.8-12 .1 high Not Available [facility] (Lab) [address], [place], [address], 07/13/2025 05:59:18 07/12/20 25 07/12/2025 CBC W/DIF F NRBC's 0.0 % 0.0 Not Available [facility] (Lab) [address], [place], [address], 07/13/2025 05:59:18 07/12/20 25 07/12/2025 CBC W/DIF F absolute NRBCs 0.0 10'3/ uL no refere nce range establ ished Not Available [facility] (Lab) [address], [place], [address], 07/13/2025 05:59:18 07/12/20 25 07/12/2025 CBC W/DIF F neutrophils 75.1 % 34.0-7 3.0 high Not Available [facility] (Lab) [address], [place], [address], 07/13/2025 05:59:18 07/12/20 25 07/12/2025 CBC W/DIF F lymphocytes 12.6 % 15.0-5 0.0 low Not Available [facility] (Lab) [address] [facility], [place], [address], 07/13/2025 05:59:18 07/12/20 25 07/12/2025 CBC W/DIF F monocytes 9.7 % 1.0-15 .0 Not Available [facility] (Lab) [address], [place], [address], 07/13/2025 05:59:18 07/12/20 25 07/12/2025 CBC W/DIF F eosinophils 0.9 % 0.0-8. 0 Not Available [facility] (Lab) [address], [place], [address], 07/13/2025 05:59:18 07/12/20 25 07/12/2025 CBC W/DIF F basophils 0.5 % 0.0-2. 0 Not Available [facility] (Lab) [address], [place], [address], 07/13/2025 05:59:18 07/12/20 25 07/12/2025 CBC W/DIF [...] separ ately if prese nt. Not Available [facility] (Lab) [address], [place], [address], 07/13/2025 05:59:18 07/12/20 25 07/12/2025 CBC W/DIF F absolute neutrophils 9.9 10'3/ uL 1.5-8. 0 high Not Available [facility] (Lab) [address], [place], [address], 07/13/2025 05:59:18 07/12/20 25 07/12/2025 CBC W/DIF F absolute lymphocytes 1.7 10'3/ uL 1.0-4. 0 Not Available [facility] (Lab) [address], [place], [address], 07/13/2025 05:59:18 07/12/20 25 07/12/2025 CBC W/DIF F absolute monocytes 1.3 10'3/ uL 0.2-1. 0 high Not Available [facility] (Lab) [address], [place], [address], 07/13/2025 05:59:18 07/12/20 25 07/12/2025 CBC W/DIF F absolute eosinophils 0.1 10'3/ uL 0.0-0. 6 Not Available [facility] (Lab) [address], [place], [address], 07/13/2025 05:59:18 07/12/20 25 07/12/2025 CBC W/DIF F absolute basophils 0.1 10'3/ uL 0.0-0. 3 Not Available [facility] (Lab) [address], [place], [address], 07/13/2025 05:59:18 07/12/20 25 07/12/2025 CBC W/DIF [...] calzada book. nm.or g/gen derx Not Available [facility] (Lab) [address], [place], [address], 07/13/2025 05:59:18 07/24/20 25 07/24/2025 CBC W/DIF F WBC 14.4 10'3/ uL 3.5-10 .5 high Not Available [facility] (Lab) [address], [place], [address], 2025 04:12:09 07/24/20 25 07/24/2025 CBC W/DIF F RBC 4.15 10'6/ uL (based on docume nted legal sex) 3.80-5 .20 Not Available [facility] (Lab) [address], [place], [address], 2025 04:12:09 07/24/2007/24/2025 CBC W/DIF F HGB 12.8 g/dL (based on docume nted legal sex) 11.6-1 5.4 Not Available [facility] (Lab) [address] [facility], [place], [address], 2025 04:12:09 07/24/20 25 07/24/2025 CBC W/DIF F HCT 37.2 % (based on docume nted legal sex) 34.0-4 5.0 Not Available [facility] (Lab) [address] [facility], [place], [address], 2025 04:12:09 07/24/2007/24/2025 CBC W/DIF F MCV 89.6 fL 80.0-9 9.0 Not Available [facility] (Lab) [address] [facility], [place], [address], 2025 04:12:09 07/24/2007/24/2025 CBC W/DIF F MCH 30.8 pg 27.0-3 4.0 Not Available [facility] (Lab) [address] [facility], [place], [address], 2025 04:12:09 07/24/2007/24/2025 CBC W/DIF F MCHC 34.4 g/dL 32.0-3 5.5 Not Available [facility] (Lab) [address] [facility], [place], [address], 2025 04:12:09 07/24/2007/24/2025 CBC W/DIF F RDW 14.1 % 11.0-1 5.0 Not Available [facility] (Lab) [address] [facility], [place], [address], 2025 04:12:09 07/24/2007/24/2025 CBC W/DIF F plt 115 10'3/ uL 150-40 0 low Not Available [facility] (Lab) [address] [facility], [place], [address], 2025 04:12:09 07/24/20 25 07/24/2025 CBC W/DIF F MPV 13.3 fL 8.8-12 .1 high Not Available [facility] (Lab) [address] [facility], [place], [address], 2025 04:12:09 07/24/20 25 07/24/2025 CBC W/DIF F NRBC's 0.0 % 0.0 Not Available [facility] (Lab) [address] [facility], [place], [address], 2025 04:12:09 07/24/20 25 07/24/2025 CBC W/DIF F absolute NRBCs 0.0 10'3/ uL no refere nce range establ ished Not Available [facility] (Lab) [address] [facility], [place], [address], 2025 04:12:09 07/24/20 25 07/24/2025 CBC W/DIF F neutrophils 75.6 % 34.0-7 3.0 high Not Available [facility] (Lab) [address] [facility], [place], [address], 2025 04:12:09 07/24/20 25 07/24/2025 CBC W/DIF F lymphocytes 12.3 % 15.0-5 0.0 low Not Available [facility] (Lab) [address] [place], [address], 2025 04:12:09 07/24/20 25 07/24/2025 CBC W/DIF F monocytes 9.3 % 1.0-15 .0 Not Available [facility] (Lab) [address] [place], [address], 2025 04:12:09 07/24/20 25 07/24/2025 CBC W/DIF F eosinophils 0.6 % 0.0-8. 0 Not Available [facility] (Lab) [address] [facility], [place], [address], 2025 04:12:09 07/24/20 25 07/24/2025 CBC W/DIF F basophils 0.5 % 0.0-2. 0 Not Available [facility] (Lab) [address] [facility], [place], [address], 2025 04:12:09 07/24/20 25 07/24/2025 CBC W/DIF [...] separ ately if prese nt. Not Available [facility] (Lab) [address] [facility], [place], [address], 2025 04:12:09 07/24/20 25 07/24/2025 CBC W/DIF F absolute neutrophils 10.8 10'3/ uL 1.5-8. 0 high Not Available [facility] (Lab) [address], [place], [address], 2025 04:12:09 07/24/20 25 07/24/2025 CBC W/DIF F absolute lymphocytes 1.8 10'3/ uL 1.0-4. 0 Not Available [facility] (Lab) [address] [place], [address], 2025 04:12:09 07/24/20 25 07/24/2025 CBC W/DIF F absolute monocytes 1.3 10'3/ uL 0.2-1. 0 high Not Available [facility] (Lab) [address] [facility], [place], [address], 2025 04:12:09 07/24/20 25 07/24/2025 CBC W/DIF F absolute eosinophils 0.1 10'3/ uL 0.0-0. 6 Not Available [facility] (Lab) [address] [place], [address], 2025 04:12:09 07/24/20 25 07/24/2025 CBC W/DIF F absolute basophils 0.1 10'3/ uL 0.0-0. 3 Not Available [facility] (Lab) [address] [facility], [place], [address], 2025 04:12:09 07/24/2007/24/2025 CBC W/DIF F absolute immature granulocytes 0.3 [...] calzada book. nm.or g/gen derx Not Available [facility] (Lab) [address] [place], [address], 2025 04:12:09 07/24/2007/24/2025 CULTU RE: GROUP B [...] Resul ting Lab: [facility] [address] [facility] [address] Tel: CULTU RE ----- ----- ----- --- No Group B strep isola alfredo at 2 days (lisa ctive broth cristopher drake t) Not Available [facility] (Lab) [address] [place], [address], 07/27/2025 18:44:14 08/04/20 25 08/04/2025 CBC (HEMO GRAM) WBC 12.0 10'3/ uL 3.5-10 .5 high Not Available [facility] (Lab) [address] [place], [address], 08/08/2025 19:28:07 08/04/20 25 08/04/2025 CBC (HEMO GRAM) RBC 4.39 10'6/ uL (based on docume nted legal sex) 3.80-5 .20 Not Available [facility] (Lab) [address] [place], [address], 08/08/2025 19:28:07 08/04/20 25 08/04/2025 CBC (HEMO GRAM) HGB 13.4 g/dL (based on docume nted legal sex) 11.6-1 5.4 Not Available [facility] (Lab) [address] [place], [address], 08/08/2025 19:28:07 08/04/20 25 08/04/2025 CBC (HEMO GRAM) HCT 39.3 % (based on docume nted legal sex) 34.0-4 5.0 Not Available [facility] (Lab) [address] [place], [address], 08/08/2025 19:28:07 08/04/20 25 08/04/2025 CBC (HEMO GRAM) MCV 89.5 fL 80.0-9 9.0 Not Available [facility] (Lab) [address] [place], [address], 08/08/2025 19:28:07 08/04/20 25 08/04/2025 CBC (HEMO GRAM) MCH 30.5 pg 27.0-3 4.0 Not Available [facility] (Lab) [address] [facility], [place], [address], 08/08/2025 19:28:07 08/04/20 25 08/04/2025 CBC (HEMO GRAM) MCHC 34.1 g/dL 32.0-3 5.5 Not Available [facility] (Lab) [address] [facility], [place], [address], 08/08/2025 19:28:07 08/04/20 25 08/04/2025 CBC (HEMO GRAM) RDW 13.6 % 11.0-1 5.0 Not Available [facility] (Lab) [address] [facility], [place], [address], 08/08/2025 19:28:07 08/04/20 25 08/04/2025 CBC (HEMO GRAM) plt 113 10'3/ uL 150-40 0 low Not Available [facility] (Lab) [address] [facility], [place], [address], 08/08/2025 19:28:07 08/04/20 25 08/04/2025 CBC (HEMO GRAM) MPV 13.3 fL 8.8-12 .1 high Not Available [facility] (Lab) [address] [facility], [place], [address], 08/08/2025 19:28:07 08/04/20 25 08/04/2025 CBC (HEMO GRAM) NRBC's 0.0 % 0.0 Not Available [facility] (Lab) [address] [facility], [place], [address], 08/08/2025 19:28:07 08/04/20 25 08/04/2025 CBC (HEMO GRAM) absolute NRBCs 0.0 10'3/ uL no refere nce range establ ished Refer ence range s for nonbi nary/ inter sex or unspe cifie d gende r patie nts have not been estab lishe d. Casey dorsey refer to the dedricko wing table for range s estab lishe d for cisge nder patie nts and evalu ate in the clini randal kiera xt of the indiv idual patie nt: https :[email or web address] calzada book. nm.or g/gen derx Not Available [facility] (Lab) [address], [place], [address], 08/08/2025 19:28:07 08/04/20 25 08/04/2025 MELONY TIN / IRON / TRANS MELONY N / TIBC iron 110 ug/dL 40-170 Not Available [facility] (Lab) [address], [place], [address], 08/08/2025 19:28:08 08/04/20 25 08/04/2025 MELONY TIN / IRON / TRANS MELONY N / TIBC transferrin 409 mg/dL 200-36 0 high Not Available [facility] (Lab) [address], [place], [address], 08/08/2025 19:28:08 08/04/20 25 08/04/2025 MELONY TIN / IRON / TRANS MELONY N / TIBC ferritin 115.4 NG/mL 8.0-25 2.0 Not Available [facility] (Lab) [address], [place], [address], 08/08/2025 19:28:08 08/04/20 25 08/04/2025 MELONY TIN / IRON / TRANS MELONY N / TIBC TIBC 573 ug/dL 250-45 0 high Not Available [facility] (Lab) [address], [place], [address], 08/08/2025 19:28:08 08/04/20 25 08/04/2025 MELONY TIN / IRON / TRANS MELONY N / TIBC iron saturation 19 % 20-55 low Not Available [facility] (Lab) [address] [facility], [place], [address], 08/08/2025 19:28:08 08/04/20 25 08/04/2025 VITAM IN B12 / FOLAT E PANEL vitamin B12 423 pg/mL 180-91 4 Vianey l Range : 180-9 14 pg/mL . Indet ermin ate Range : 145-1 80 pg/mL . Defic ient Range : <=145 pg/mL . Not Available [facility] (Lab) [address] [facility], [place], [address], 08/08/2025 19:28:08 08/04/20 25 08/04/2025 VITAM IN B12 / FOLAT E PANEL folate, serum >22.3 NG/mL >=6.0 Not Available [facility] (Lab) [address] [place], [address], 08/08/2025 19:28:08 08/04/20 25 08/04/2025 INTRI NSIC FACTO R BLOCK ING ANTIB TIM, SERUM intrinsic factor blocking Ab, S Negati ve negati ve Not Available [facility] (Lab) [address] [facility], [place], [address], 08/08/2025 19:28:08 08/04/20 25 08/04/2025 INTRI NSIC FACTO R BLOCK ING ANTIB TIM, SERUM comment SEE COMMEN TS Intri nsic Facto r Block ing Antib tim (IFBA ) antib odies are absen t in appro ximat ignacio 50% of indiv idual s with sangeetha bossmi michell ([place]). The absen ce of eleva alfredo IFBA antib odies does not rule out the prese nce of [place]; furth er studi es such as gastr in testi ng may be indic ated. Test Perfo rmed by: [facility] [place] [address], [place] [address] Lab Direc tor: Lawanda Goode nn Ph.D. ; CLIA# [id number] Not Available [facility] (Lab) [address] [facility], [place], [address], 08/08/2025 19:28:08 08/04/20 25 08/04/2025 PARIE LUIS CELL ANTIB ODIES , IGG, SERUM parietal cell Ab, IgG, S <10.0 U <=20.0 (negat kvng) Test Perfo rmed by: [facility] [place] [address], [place] [address] Lab Direc tor: Lawanda Goode nn Ph.D. ; CLIA# [id number] Not Available [facility] (Lab) [address] [facility], [place], [address], 08/08/2025 19:28:09 08/04/20 25 08/04/2025 CBC W/DIF F CBC and differential CANCEL LED No Speci men Recei carin Not Available [facility] (Lab) [address] [facility], [place], [address], 08/10/2025 17:13:18 08/04/20 25 08/04/2025 VITAM IN B12 / FOLAT E PANEL vitamin B12/folate panel CANCEL LED No Speci men Recei carin Not Available [facility] (Lab) [address] [facility], [place], [address], 08/10/2025 17:13:19 08/04/20 25 08/04/2025 CBC (HEMO GRAM) CBC (hemogram) CANCEL LED No Speci men Recei carin Not Available [facility] (Lab) [address] [facility], [place], [address], 08/10/2025 17:14:29 08/04/20 25 08/04/2025 MELONY TIN / IRON / TRANS MELONY N / TIBC ferritin / iron / transferrin / TIBC (nmh/lfh/gl/ cdh/kh/vw/nw r) CANCEL LED No Speci men Recei carin Not Available [facility] (Lab) [address], [place], [address], 08/10/2025 17:25:30 08/10/20 25 08/10/2025 CBC W/DIF F WBC 12.2 10'3/ uL 3.5-10 .5 high Not Available [facility] (Lab) [address], [place], [address], 08/11/2025 09:03:58 08/10/20 25 08/10/2025 CBC W/DIF F RBC 4.49 10'6/ uL (based on docume nted legal sex) 3.80-5 .20 Not Available [facility] (Lab) [address], [place], [address], 08/11/2025 09:03:58 08/10/20 25 08/10/2025 CBC W/DIF F HGB 13.6 g/dL (based on docume nted legal sex) 11.6-1 5.4 Not Available [facility] (Lab) [address], [place], [address], 08/11/2025 09:03:58 08/10/20 25 08/10/2025 CBC W/DIF F HCT 39.9 % (based on docume nted legal sex) 34.0-4 5.0 Not Available [facility] (Lab) [address], [place], [address], 08/11/2025 09:03:58 08/10/20 25 08/10/2025 CBC W/DIF F MCV 88.9 fL 80.0-9 9.0 Not Available [facility] (Lab) [address], [place], [address], 08/11/2025 09:03:58 08/10/20 25 08/10/2025 CBC W/DIF F MCH 30.3 pg 27.0-3 4.0 Not Available [facility] (Lab) [address] [place], [address], 08/11/2025 09:03:58 08/10/20 25 08/10/2025 CBC W/DIF F MCHC 34.1 g/dL 32.0-3 5.5 Not Available [facility] (Lab) [address], [place], [address], 08/11/2025 09:03:58 08/10/20 25 08/10/2025 CBC W/DIF F RDW 14.1 % 11.0-1 5.0 Not Available [facility] (Lab) [address], [place], [address], 08/11/2025 09:03:58 08/10/20 25 08/10/2025 CBC W/DIF F plt 117 10'3/ uL 150-40 0 low Not Available [facility] (Lab) [address], [place], [address], 08/11/2025 09:03:58 08/10/20 25 08/10/2025 CBC W/DIF F MPV 14.0 fL 8.8-12 .1 high Not Available [facility] (Lab) [address], [place], [address], 08/11/2025 09:03:58 08/10/20 25 08/10/2025 CBC W/DIF F NRBC's 0.0 % 0.0 Not Available [facility] (Lab) [address], [place], [address], 08/11/2025 09:03:58 08/10/20 25 08/10/2025 CBC W/DIF F absolute NRBCs 0.0 10'3/ uL no refere nce range establ ished Not Available [facility] (Lab) [address], [place], [address], 08/11/2025 09:03:58 08/10/20 25 08/10/2025 CBC W/DIF F neutrophils 75.8 % 34.0-7 3.0 high Not Available [facility] (Lab) [address] [facility], [place], [address], 08/11/2025 09:03:58 08/10/20 25 08/10/2025 CBC W/DIF F lymphocytes 12.9 % 15.0-5 0.0 low Not Available [facility] (Lab) [address] [facility], [place], [address], 08/11/2025 09:03:58 08/10/20 25 08/10/2025 CBC W/DIF F monocytes 8.9 % 1.0-15 .0 Not Available [facility] (Lab) [address] [facility], [place], [address], 08/11/2025 09:03:58 08/10/20 25 08/10/2025 CBC W/DIF F eosinophils 0.7 % 0.0-8. 0 Not Available [facility] (Lab) [address] [facility], [place], [address], 08/11/2025 09:03:58 08/10/20 25 08/10/2025 CBC W/DIF F basophils 0.3 % 0.0-2. 0 Not Available [facility] (Lab) [address] [facility], [place], [address], 08/11/2025 09:03:58 08/10/20 25 08/10/2025 CBC W/DIF [...] separ ately if prese nt. Not Available [facility] (Lab) [address] [facility], [place], [address], 08/11/2025 09:03:58 08/10/20 25 08/10/2025 CBC W/DIF F absolute neutrophils 9.3 10'3/ uL 1.5-8. 0 high Not Available [facility] (Lab) [address] [facility], [place], [address], 08/11/2025 09:03:58 08/10/20 25 08/10/2025 CBC W/DIF F absolute lymphocytes 1.6 10'3/ uL 1.0-4. 0 Not Available [facility] (Lab) [address] [facility], [place], [address], 08/11/2025 09:03:58 08/10/20 25 08/10/2025 CBC W/DIF F absolute monocytes 1.1 10'3/ uL 0.2-1. 0 high Not Available [facility] (Lab) [address] [facility], [place], [address], 08/11/2025 09:03:58 08/10/20 25 08/10/2025 CBC W/DIF F absolute eosinophils 0.1 10'3/ uL 0.0-0. 6 Not Available [facility] (Lab) [address] [facility], [place], [address], 08/11/2025 09:03:58 08/10/20 25 08/10/2025 CBC W/DIF F absolute basophils 0.0 10'3/ uL 0.0-0. 3 Not Available [facility] (Lab) [address] [place], [address], 08/11/2025 09:03:58 08/10/20 25 08/10/2025 CBC W/DIF [...] calzada book. nm.or g/gen derx Not Available [facility] (Lab) [address], [place], [address], 08/11/2025 09:03:58 02/11/20 25 02/10/2025 US, obste tric, nucha l trans lucen cy No observ ation record ed. [facility] [address] [place], [address], 02/10/2025 18:38:42 02/11/20 25 02/10/2025 US, obste tric, follo w-up No observ ation record ed. [email or web address] [address], [place], [address], 02/13/2025 09:20:03 04/03/20 25 04/03/2025 US, obste tric, 2nd or 3rd trime ster No observ ation record ed. [email or web address] [place] [address], [place], [address], 04/03/2025 18:43:20 04/03/20 25 04/03/2025 US, obste tric, 2nd or 3rd trime ster No observ ation record ed. [email or web address] [facility] [address], [place], [address], 04/05/2025 17:47:52 04/21/20 25 04/21/2025 non-s tress test No observ ation record ed. [address], [place], [address], 04/24/2025 12:03:28 05/02/20 25 05/02/2025 US, obste tric, follo w-up No observ ation record ed. [facility] [address], [place], [address], 05/02/2025 12:58:26 05/02/20 25 05/02/2025 US, obste tric, follo w-up No observ ation record ed. ROBERT [facility] [address], [place], [address], 05/03/2025 18:13:01 05/29/20 25 05/29/2025 non-s tress test No observ ation record ed. [address], [address], 05/31/2025 15:39:22 06/20/20 25 06/20/2025 imagi ng/di agnos tic resul t No observ ation record ed. [facility] [address] [place] [address], [address], 06/20/2025 13:33:45 06/20/2006/20/2025 US, obste tric, follo w-up No observ ation record ed. [email or web address] [facility] [address] [place] [address], [address], 06/27/2025 17:32:46 07/03/20 25 07/03/2025 non-s tress test No observ ation record ed. [address], [address], 07/19/2025 15:34:42 07/03/20 25 07/03/2025 imagi ng/di agnos tic resul t No observ ation record ed. [address], [address], 07/03/2025 11:55:37 07/26/20 25 07/26/2025 imagi ng/di agnos tic resul t No observ ation record ed. [address], [address], 07/26/2025 18:39:01 07/26/20 25 07/26/2025 imagi ng/di agnos tic resul t No observ ation record ed. [facility] [address] [place], [address], 07/26/2025 18:39:01 07/26/2007/26/2025 imagi ng/di agnos tic resul t No observ ation record ed. [facility] [address], [address], 07/26/2025 18:39:01 08/14/20 25 08/14/2025 imagi ng/di agnos tic resul t No observ ation record ed. [facility] [address], [address], 08/14/2025 09:43:44 08/14/20 25 08/14/2025 imagi ng/di agnos tic resul t No observ ation record ed. [facility] [address], [address], 08/14/2025 14:53:30 Result Notes None recorded. Problems Name Problem SNOMED Code Status Onset Date Resolution Date Notes Provider Name and Address Organization Details Recorded Time Anxiety 97778686 Active 2024 Kristen Ruffin [facility] 11:01:06 18785266 Active 2024 Aleah Bedolla [facility] 11:57:32 Platelet count below reference range 130216461 Active 2024 Referral faxed to [facility] 06/01 scheduled 06/20 0900 Level II us and consult [facility] 11:50:53 Problem Notes None recorded. Procedures Surgical History Date Name Laterality Status Provider Name and Address Organization Details Recorded Time 5 Date of Last Pap Smear completed Kristen Ruffin [facility] 01/13/2025 11:01:13 7 operative procedure on wrist completed Aleah Bedolla [facility] 02/10/2025 11:57:07 Imaging Results None recorded. [...] Updated DateTime 08/10/2025 170.18 cm 29.6 kg/m2 85920.96 g 116/75 mm[Hg] CHERIE CARR [facility] 08/10/2025 15:45:22 Social History Question Answer Notes LastModified by Organizat ion Details LastModified Time Tobacco Smoking Status Never Smoker Kristen sánchez, [facility] 01/13/2025 11:05:22 If You Are , What Was Your Level Of Alcohol Consumption Prior To ? Occasional [email or web address] Information not available 01/13/2025 Are You Blind Or Do You Have Difficulty Seeing? No [email or web address] Information n ot available 01/13/2025 What Is Your Level Of Caffeine Consumption? Occasional [email or web address] Information not available 01/13/2025 In The 14 Days Before Symptom Onset, Have You Had Close Contact With A Laboratory-confirm ed COVID-19 While That Case Was Ill? No [email or web address] Information n ot available 01/13/2025 In The 14 Days Before Symptom Onset, Have You Had Close Contact With A Person Who Is Under Investigation For COVID-19 While That Person Was Ill? No [email or web address] Information not available 01/13/2025 Have You Been To An Area Known To Be High Risk For COVID-19? No Information not available 01/13/2025 Are You Deaf Or Do You Have Serious Difficulty Hearing? No [email or web address] Information not available 01/13/2025 Do You Have Smoke And Carbon Monoxide Detectors In Your Home? Yes [email or web address] Information not available 01/13/2025 Do You Use Sunscreen Routinely? Yes [email or web address] Information not available 01/13/2025 Has Tobacco Cessation Counseling Been Provided? No [email or web address] Information not available 01/13/2025 Have You Used IV Drugs? No [email or web address] Information not available 01/13/2025 Do You Have Difficulty Walking Or Climbing Stairs? No [email or web address] Information not available 01/13/2025 Sex: Unknown Functional Status Question Answer Note LastModified by Organizat ion Details LastModified Time Do you use any illicit or recreational drugs? No Information not available 01/13/2025 Do you or have you ever used any other forms of tobacco or nicotine? Yes [email or web address] Information not available 01/13/2025 What is your level of alcohol consumption? None [email or web address] Information not available 01/13/2025 Are you able to walk independently without assistance or assistive devices? YESWOREST [email or web address] Information not available 01/13/2025 Are you able to care for yourself independently? Yes [email or web address] Information not available 01/13/2025 Do you have difficulty dressing, bathing, grooming, or toileting? No [email or web address] Information not available 01/13/2025 Do you or have you ever used e-cigarettes or vape? Former user of electronic cigarettes [email or web address] Information not available 01/13/2025 Mental Status None recorded. Family History Relationship Description Onset Age of this Age Resolved Age Notes LastModified by Organization Details LastModified Time Unspecified Relation Family history unknown Not available 2024 13:48:03 Paternal Grandfather Malignant neoplasm of prostate [email or web address] Not available 07/31 15:39:21 Maternal Grandfather Malignant neoplasm of lung [email or web address] Not available 01/13 11:03:40 Maternal Grandmother Malignant neoplasm of pancreas [email or web address] Not available 07/31 15:39:21 Maternal Aunt Malignant neoplasm of breast [email or web address] Not available 2024 13:48:03 Father Leukemia [email or web address] Not availa ble 08/10/2025 15:39:21 Mother Diabetes mellitus [email or web address] Not available 01/13 11:04:57 Medical History Condition [...] ICD10 Code Diagnosis IMO Codes Diagnosis Note [id number] JOLIE TOMLINSON MD [place] [address] [address] 07/12/2025 13:47:56 07/14/2025 11:51:27 Thrombocytopenic disorder 028930952 D69.6 63822 - plt 125>131>77 - repeat today- MFM consult Gestation period, 34 weeks 84518184 Z3A.34 3444916 - continue PNV [id number] JOLIE TOMLINSON MD [place] [address] [address] 07/24/2025 11:18:52 07/24/2025 12:20:34 Thrombocytopenic disorder 102905173 D69.6 24512 - plt 125>131>77 >110- repeat today- MFM consult Gestation period, 36 weeks 07422046 Z3A.36 [id number] MD Jayjay [facility] [address] [address] 08/04/2025 15:30:27 08/04/2025 16:22:08 Cobalamin deficiency 725296619 E53.8 428659 - on injections Platelet c ount below reference range 589109707 D69.6 54790757 - plt 125>131>11 3>115- MFM consult Gestation period, 37 weeks 86954849 Z3A.37 9855055 - continue PNV [id number] MD Jayjay [facility] [address] [address] 08/10/2025 15:38:43 08/10/2025 16:32:04 Platelet count below reference range 973101225 D69.6 58597097 - plt 125>131>11 3>115>113- repeat today Gestation period, 38 weeks 59491856 Z3A.38 9165744 - continue PNV Health Concerns Section Related Observation LastModified by Organization Detai ls LastModified Time None Recorded Concern Status LastModified by Organization Details LastModified Time None Recorded Payers Encounter Date Sequence Insurance Name Policy Number Policy Marie Covered Member ID Marie Member ID Guarantor Name 08/10/2025 1 [facility] (PPO) [id number] Kya Angulo [id number] Kya Angulo 08/10/2025 [facility] - DOS ON OR AFTER 21 (MEDICAID REPLACEMENT - HMO) Gabby Jose [id number] Kya Angulo Notes Date Note Type Note Provider Name and Address Organization Details Recorded Time 08/10/2025 text/html Generic HPI TemplateReported by Patient JOLIE TOMLINSON MD [address], [place], [address], [facility] 08/10/2025 16:30:59 OBGyn Episode Ob Episode Information Episode Created Date Number of Fetuses Patient Bloodtype Patient rh Status Prepregnancy Weight lbs Domestic Partner Domestic Partner Phone Father Name Arabic Linguist Status 02/11/20 25 1 O Positive 150 Jovany Juwan OPEN Fetus Data First Name Last Name Admitted to NICU Weight (g) Sex Living Outcome Pediatric Complications Fetus ID Race Codes Race Delivery Type [id number] Problems Problem Notes RSV vaccine received 07/04/25 . Problem Name Start Date End Date Resolution Snomed Code Not e Platelet count below reference range 06/01/2025 [id number] Referral fax ed to [facility] 06/01 scheduled 06/20 0900 Level II [...] Date Ultra Sound Latest Days Gestation 0 [email or web address] 02/10/2025 08/21/20 25 0 Pre- Flowsheet Flowsheet Date 02/10/2025 Kirkland Score Blood Edema Fundus Height Fundus Units Glucose Ketones Leukocytes Nitrite Labor Signs Protein Cervic Dilation Cervic Effacement Cervic Station Type Weight in lbs Pre/Post Dialysis Refused Weight 153.494322977775 BP Diastolic BP Location Tested BP Systolic BP Type 77 L arm 122 sitting Fetus Heart Rate Present A Present Fetus Movement Comments Patient presents to [facility] care. otherwise uncomplicated. No bleeding or [...] Weight in lbs Pre/Post Dialysis Refused Weight 156.642044764376 BP Diastolic BP Location Tested BP Systolic [...] Weight in lbs Pre/Post Dialysis Refused Weight 160.520662309408 BP Diastolic BP Location Tested BP Systolic [...] Weight in lbs Pre/Post Dialysis Refused Weight 165.351012034061 BP Diastolic BP Location Tested BP Systolic [...] Type Weight in lbs Pre/Post Dialysis Refused 176.559522387682 BP Diastolic BP Location Tested BP Systolic BP Type 78 L arm 118 sitting Fetus Heart Rate Present A 150 Fetus Movement A Yes Comments Had an episode of DFM yester day, went to [facility] and had negative workup. No cramping or bleeding. GCT and labs today, will draw CBC as well. Discussed Tdap, RSV, and flu vaccines. RTC 2 weeks. Flowsheet Date 06/13/2025 Kirkland Score Blood Edema Fundus Height Fundus Units Glucose Ketones Leukocytes Nitrite Labor Signs Protein Cervic Dilation Cervic Effacement Cervic Station Type Weight in lbs Pre/Post Dialysis Refused 181.267952342204 BP Diastolic BP Location Tested BP Systolic [...] Weight in lbs Pre/Post Dialysis Refused Weight 178.755287142648 BP Diastolic BP Location Tested BP Systolic BP Type 78 L arm 112 sitting Fetus Heart Rate Present A 140 Fetus Movement A Yes Comments Good movement. No cram ping or bleeding. Saw MFM, recommend platelet counts every visit. Land[employer] Support Specialist appointment next week to determine if autoimmune vs gestational. EFW 92%, AC 93%; discussed 39 week induction, plan for 12/15 PM. Preadmission scheduled. RSV vaccine discussed. RTC 2 weeks. Flowsheet Date 07/12/2025 Kirkland Score Blood Edema Fundus Height Fundus Units Glucose Ketones Leukocytes Nitrite Labor Signs Protein Cervic Dilation Cervic Effacement Cervic Station Type Weight in lbs Pre/Post Dialysis Refused Weight 185.846924043103 BP Diastolic BP Location Tested BP Systolic [...] Weight in lbs Pre/Post Dialysis Refused Weight 186.433479455165 BP Diastolic BP Location Tested BP Systolic [...] Weight in lbs Pre/Post Dialysis Refused Weight 187.542226478210 BP Diastolic BP Location Tested BP Systolic [...] Weight in lbs Pre/Post Dialysis Refused Weight 189.476110117747 BP Diastolic BP Location Tested BP Systolic [...]
--- OUTSIDE RECORDS SUMMARY | 2025-08-14 17:58 | XMS_ITS | Continuity of Care Document ---
Author Organization [facility] Address [address] [place] [address] Care Team Providers Care Superintendent Sanitation Name Role Phone SHERYL DICKSON Primary Care Provider Assessment No assessment recorded. Plan of Treatment Reminders Order Date Submit Date Provider Last Modified By Organization Details Last Modified Time Details Appointments INDUCTION 2024 04:00P Cosmo TOMLINSON MD Not available Not available Not available Lab CBC w/ auto diff 2024 025 [facility] (Lab), [address], [place], [address], 2025 04:12:09 Referral None recorded. Procedures None [...] [facility] [address], [place], [address], 02/16/2025 19:59:32 02/17/20 25 02/16/2025 [UNIT Y] ANEUP LOIDY NIPT 22Q11.2 microdeletio n LOW RISK <1 in 10,000 normal Not Available [facility] [address], [place], [address], 02/16/2025 19:59:32 02/17/20 25 02/16/2025 [UNIT Y] ANEUP LOIDY NIPT sex chromosome aneuploidy NOT DETECT ED normal Not Available [facility] [address], [place], [address], 02/16/2025 19:59:32 02/17/20 25 02/16/2025 [UNIT Y] ANEUP LOIDY NIPT monosomy X LOW RISK <1 in 10,000 normal Not Available [facility] [address], [place], [address], 02/16/2025 19:59:32 02/17/20 25 02/16/2025 [UNIT Y] ANEUP LOIDY NIPT trisomy 13 LOW RISK <1 in 10,000 normal Not Available [facility] [address], [place], [address], 02/16/2025 19:59:32 02/17/20 25 02/16/2025 [UNIT Y] ANEUP LOIDY NIPT trisomy 18 LOW RISK <1 in 10,000 normal Not Available [facility] [address], [place], [address], 02/16/2025 19:59:32 02/17/20 25 02/16/2025 [UNIT Y] ANEUP LOIDY NIPT trisomy 21 LOW RISK <1 in 10,000 normal Not Available [facility] [address], [place], [address], 02/16/2025 19:59:32 02/17/20 25 02/16/2025 [UNIT Y] ANEUP LOIDY NIPT sex MALE normal Not Available [facility] [address], [place], [address], 02/16/2025 19:59:32 02/17/20 25 02/16/2025 [UNIT Y] ANEUP LOIDY NIPT gestation SINGLE TON normal Not Available [facility] [address], [place], [address], 02/16/2025 19:59:32 02/17/20 25 02/16/2025 [UNIT Y] ANEUAnuradha AUGUSTINT for detailed report, see pdf See PDF normal Not Available [facility] [address], [place], [address], 02/16/2025 19:59:32 02/22/20 25 02/21/2025 [UNIT Y] FLETCHER Rose sickle cell disease/beta -thalassemia /hemoglobino pathies carrier screen NEGATI VE normal Not Available [facility] [address], [place], [address], 02/21/2025 14:09:41 02/22/20 25 02/21/2025 [UNIT Y] FLETCHER Rose alpha-thalas semia carrier screen NEGATI VE normal Not Available [facility] [address], [place], [address], 02/21/2025 14:09:41 02/22/20 25 02/21/2025 [UNIT Y] FLETCHER Rose cystic fibrosis carrier screen NEGATI VE normal Not Available [facility] [address], [place], [address], 02/21/2025 14:09:41 02/22/20 25 02/21/2025 [UNIT Y] FLETCHER Rose spinal muscular atrophy carrier screen NEGATI VE 2 SMN1 copies , SNP not presen t normal Not Available [facility] [address], [place], [address], 02/21/2025 14:09:41 02/22/20 25 02/21/2025 [UNIT Y] FLETCHER Rose for detailed report, see pdf See PDF normal Not Available [facility] [address], [place], [address], 02/21/2025 14:09:41 02/11/2002/10/2025 CT/GC AND TRICH OMONA S VAGIN KARLO (RRNA ), URINE chlamydia trachomatis, PCR Negati ve negati ve Not Available [facility] (Lab) [address], [place], [address], 02/11/2025 12:05:33 02/11/20 25 02/10/2025 CT/GC AND TRICH OMONA S VAGIN KARLO (RRNA ), URINE neisseria gonorrhoeae, PCR Negati ve negati ve Not Available [facility] (Lab) [address], [place], [address], 02/11/2025 12:05:33 02/11/2002/10/2025 CT/GC AND TRICH OMONA S VAGIN KARLO (RRNA ), URINE trichomonas vaginalis ribosomal RNA (rrna) Negati ve negati ve Not Available [facility] (Lab) [address], [place], [address], 02/11/2025 12:05:33 02/11/20 25 02/10/2025 CBC W/DIF F WBC 8.7 10'3/ uL 3.5-10 .5 Not Available [facility] (Lab) [address], [place], [address], 02/11/2025 13:44:37 02/11/20 25 02/10/2025 CBC W/DIF F RBC 4.55 10'6/ uL (based on docume nted legal sex) 3.80-5 .20 Not Available [facility] (Lab) [address], [place], [address], 02/11/2025 13:44:37 02/11/20 25 02/10/2025 CBC W/DIF F HGB 13.7 g/dL (based on docume nted legal sex) 11.6-1 5.4 Not Available [facility] (Lab) [address], [place], [address], 02/11/2025 13:44:37 02/11/20 25 02/10/2025 CBC W/DIF F HCT 40.8 % (based on docume nted legal sex) 34.0-4 5.0 Not Available [facility] (Lab) [address], [place], [address], 02/11/2025 13:44:37 02/11/20 25 02/10/2025 CBC W/DIF F MCV 89.7 fL 80.0-9 9.0 Not Available [facility] (Lab) [address], [place], [address], 02/11/2025 13:44:37 02/11/20 25 02/10/2025 CBC W/DIF F MCH 30.1 pg 27.0-3 4.0 Not Available [facility] (Lab) [address], [place], [address], 02/11/2025 13:44:37 02/11/20 25 02/10/2025 CBC W/DIF F MCHC 33.6 g/dL 32.0-3 5.5 Not Available [facility] (Lab) [address], [place], [address], 02/11/2025 13:44:37 02/11/20 25 02/10/2025 CBC W/DIF F RDW 12.8 % 11.0-1 5.0 Not Available [facility] (Lab) [address] , [place], [address], 02/11/2025 13:44:37 02/11/20 25 02/10/2025 CBC W/DIF F plt 125 10'3/ uL 150-40 0 low Not Available [facility] (Lab) [address] [place], [address], 02/11/2025 13:44:37 02/11/20 25 02/10/2025 CBC W/DIF F MPV 13.5 fL 8.8-12 .1 high Not Available [facility] (Lab) [address], [place], [address], 02/11/2025 13:44:37 02/11/20 25 02/10/2025 CBC W/DIF F NRBC's 0.0 % 0.0 Not Available [facility] (Lab) [address], [place], [address], 02/11/2025 13:44:37 02/11/20 25 02/10/2025 CBC W/DIF F absolute NRBCs 0.0 10'3/ uL no refere nce range establ ished Not Available [facility] (Lab) [address], [place], [address], 02/11/2025 13:44:37 02/11/20 25 02/10/2025 CBC W/DIF F neutrophils 76.5 % 34.0-7 3.0 high Not Available [facility] (Lab) [address], [place], [address], 02/11/2025 13:44:37 02/11/20 25 02/10/2025 CBC W/DIF F lymphocytes 14.4 % 15.0-5 0.0 low Not Available [facility] (Lab) [address], [place], [address], 02/11/2025 13:44:37 02/11/20 25 02/10/2025 CBC W/DIF F monocytes 8.3 % 1.0-15 .0 Not Available [facility] (Lab) [address], [place], [address], 02/11/2025 13:44:37 02/11/20 25 02/10/2025 CBC W/DIF F eosinophils 0.3 % 0.0-8. 0 Not Available [facility] (Lab) [address] [place], [address], 02/11/2025 13:44:37 02/11/20 25 02/10/2025 CBC W/DIF F basophils 0.3 % 0.0-2. 0 Not Available [facility] (Lab) [address], [place], [address], 02/11/2025 13:44:37 02/11/2002/10/2025 CBC W/DIF F immature [...] Available [facility] (Lab) [address], [place], [address], 02/11/2025 13:44:37 02/11/20 25 02/10/2025 CBC W/DIF F absolute neutrophils 6.6 10'3/ uL 1.5-8. 0 Not Available [facility] (Lab) [address], [place], [address], 02/11/2025 13:44:37 02/11/20 25 02/10/2025 CBC W/DIF F absolute lymphocytes 1.3 10'3/ uL 1.0-4. 0 Not Available [facility] (Lab) [address], [place], [address], 02/11/2025 13:44:37 02/11/20 25 02/10/2025 CBC W/DIF F absolute monocytes 0.7 10'3/ uL 0.2-1. 0 Not Available [facility] (Lab) [address], [place], [address], 02/11/2025 13:44:37 02/11/20 25 02/10/2025 CBC W/DIF F absolute eosinophils 0.0 10'3/ uL 0.0-0. 6 Not Available [facility] (Lab) [address], [place], [address], 02/11/2025 13:44:37 02/11/20 25 02/10/2025 CBC W/DIF F absolute basophils 0.0 10'3/ uL 0.0-0. 3 Not Available [facility] (Lab) [address], [place], [address], 02/11/2025 13:44:37 02/11/20 25 02/10/2025 CBC W/DIF [...] and book. nm.or g/gen derx Not Available [facility] (Lab) [address], [place], [address], 02/11/2025 13:44:37 02/11/20 25 02/10/2025 HIV 1/2 ANTIG EN/AN TIBOD Y, REFLE X CONFI RMATI ON HIV antigen/anti body Nonrea ctive nonrea ctive HIV-1 antig en and HIV-1 /HIV- 2 antib odies were not detec alfredo. No labor atory evide nce of HIV infec tion. Not Available [facility] (Lab) [address], [place], [address], 02/11/2025 13:44:38 02/11/2002/10/2025 HEPAT ITIS B SURFA [...] [facility] ([facility] [address], [place], [address], 02/11/2025 13:44:38 02/11/2002/10/2025 HEPAT ITIS C ANTIB TIM SCREE N, REFLE X TO CONFI RMATI ON hepatitis C antibody Non-re active non-re active Antib odies to HCV Not Detec alfredo, does not exclu de the possi bilit y of expos ure to HCV. Not Available [facility] (Lab) [address], [place], [address], 02/11/2025 13:44:39 02/11/20 25 02/10/2025 RUBEL LA IGG ANTIB TIM, QUANT rubella antibodies, IgG Reacti ve reacti ve Not Available [facility] (Lab) [address], [place], [address], 02/11/2025 13:44:39 02/11/20 25 02/10/2025 RUBEL LA IGG ANTIB TIM, QUANT rubella antibodies, IgG quant 47.1 IU/mL >=10 Non-r eacti ve (Non- Immun e) <10 IU/mL React kvng (Immu ne) > or = 10 IU/mL Not Available [facility] (Lab) [address] [place], [address], 02/11/2025 13:44:39 02/11/20 25 02/10/2025 TYPE/ RH/SC REEN ABO/Rh type O POS Not Available [facility] (Lab) [address], [place], [address], 02/11/2025 13:44:40 02/11/2002/10/2025 TYPE/ RH/SC REEN antibody screen NEG Not Available [facility] (Lab) [address], [place], [address], 02/11/2025 13:44:40 02/11/20 25 02/10/2025 TYPE/ RH/SC REEN exp date 2024 23:59 Not Available [facility] (Lab) [address], [place], [address], 02/11/2025 13:44:40 02/11/20 25 02/10/2025 HEMOG LOBIN [...] [facility] ([facility] [address], [place], [address], 02/11/2025 13:44:40 02/11/20 25 02/10/2025 RPR SCREE N, REFLE X TITER /CONF IRMAT ION RPR qualitative Nonrea ctive nonrea ctive Not Available [facility] (Lab) [address], [place], [address], 02/11/2025 13:44:41 02/11/20 25 02/10/2025 drug scree n, urine Amphetamines : negati ve Not Available [facility] [address], [place], [address], 02/10/2025 12:55:20 02/11/20 25 02/10/2025 drug scree n, urine Cannabinoids : negati ve Not Available [place] [facility] [address], [place], [address], 02/10/2025 12:55:20 02/11/20 25 02/10/2025 drug scree n, urine Cocaine: negati ve Not Available [facility] [address], [place], [address], 02/10/2025 12:55:20 02/11/20 02/10/2025 drug scree n, urine Opiates: negati ve Not Available [facility] [address], [place], [address], 02/10/2025 12:55:20 02/11/20 25 02/10/2025 drug scree n, urine Barbiturates : negati ve Not Available [place] [facility] [address], [place], [address], 02/10/2025 12:55:20 02/11/20 25 02/10/2025 drug scree n, urine Benzodiazepi john: negati ve Not Available [facility] [address], [place], [address], 02/10/2025 12:55:20 03/10/20 25 03/10/2025 CULTU RE: URINE result report SEE RESULT S BELOW Test: Cultu re: Urine Speci men Sourc e: Urine Voide d Speci men Type: Urine Speci men Date: 2024 0938 Resul t Date: 20242 Resul t Statu s: Final resul t Abnor mal: No Resul ting Lab: [facility] [address] [facility] [place] [address] Tel: CULTU RE ----- ----- ----- --- No growt h in 1 day (dete ction level of 10,00 0 colon ies / ml.) Not Available [facility] (Lab) [address] [place], [address], 03/11/2025 23:15:50 04/03/20 25 04/03/2025 CBC W/DIF F WBC 12.9 10'3/ uL 3.5-10 .5 high Not Available [facility] (Lab) [address], [place], [address], 04/04/2025 04:39:51 04/03/20 25 04/03/2025 CBC W/DIF F RBC 4.33 10'6/ uL (based on docume nted legal sex) 3.80-5 .20 Not Available [facility] (Lab) [address], [place], [address], 04/04/2025 04:39:51 04/03/2004/03/2025 CBC W/DIF F HGB 13.2 g/dL (based on docume nted legal sex) 11.6-1 5.4 Not Available [facility] (Lab) [address], [place], [address], 04/04/2025 04:39:51 04/03/2004/03/2025 CBC W/DIF F HCT 40.2 % (based on docume nted legal sex) 34.0-4 5.0 Not Available [facility] (Lab) [address], [place], [address], 04/04/2025 04:39:51 04/03/2004/03/2025 CBC W/DIF F MCV 92.8 fL 80.0-9 9.0 Not Available [facility] (Lab) [address], [place], [address], 04/04/2025 04:39:51 04/03/2004/03/2025 CBC W/DIF F MCH 30.5 pg 27.0-3 4.0 Not Available [facility] (Lab) [address] [place], [address], 04/04/2025 04:39:51 04/03/2004/03/2025 CBC W/DIF F MCHC 32.8 g/dL 32.0-3 5.5 Not Available [facility] (Lab) [address] [place], [address], 04/04/2025 04:39:51 04/03/20 25 04/03/2025 CBC W/DIF F RDW 13.0 % 11.0-1 5.0 Not Available [facility] (Lab) [address] [place], [address], 04/04/2025 04:39:51 04/03/2004/03/2025 CBC W/DIF F plt 131 10'3/ uL 150-40 0 low Not Available [facility] (Lab) [address], [place], [address], 04/04/2025 04:39:51 04/03/2004/03/2025 CBC W/DIF F MPV 13.9 fL 8.8-12 .1 high Not Available [facility] (Lab) [address], [place], [address], 04/04/2025 04:39:51 04/03/2004/03/2025 CBC W/DIF F NRBC's 0.0 % 0.0 Not Available [facility] (Lab) [address], [place], [address], 04/04/2025 04:39:51 04/03/2004/03/2025 CBC W/DIF F absolute NRBCs 0.0 10'3/ uL no refere nce range establ ished Not Available [facility] (Lab) [address], [place], [address], 04/04/2025 04:39:51 04/03/2004/03/2025 CBC W/DIF F neutrophils 76.6 % 34.0-7 3.0 high Not Available [facility] (Lab) [address], [place], [address], 04/04/2025 04:39:51 04/03/2004/03/2025 CBC W/DIF F lymphocytes 14.2 % 15.0-5 0.0 low Not Available [facility] (Lab) [address], [place], [address], 04/04/2025 04:39:51 04/03/2004/03/2025 CBC W/DIF F monocytes 7.6 % 1.0-15 .0 Not Available [facility] (Lab) [address], [place], [address], 04/04/2025 04:39:51 04/03/20 25 04/03/2025 CBC W/DIF F eosinophils 0.7 % 0.0-8. 0 Not Available [facility] (Lab) [address], [place], [address], 04/04/2025 04:39:51 04/03/20 25 04/03/2025 CBC W/DIF F basophils 0.4 % 0.0-2. 0 Not Available [facility] (Lab) [address], [place], [address], 04/04/2025 04:39:51 04/03/20 25 04/03/2025 CBC W/DIF [...] Available [facility] (Lab) [address], [place], [address], 04/04/2025 04:39:51 04/03/2004/03/2025 CBC W/DIF F absolute neutrophils 9.9 10'3/ uL 1.5-8. 0 high Not Available [facility] (Lab) [address], [place], [address], 04/04/2025 04:39:51 04/03/2004/03/2025 CBC W/DIF F absolute lymphocytes 1.8 10'3/ uL 1.0-4. 0 Not Available [facility] (Lab) [address], [place], [address], 04/04/2025 04:39:51 04/03/20 25 04/03/2025 CBC W/DIF F absolute monocytes 1.0 10'3/ uL 0.2-1. 0 Not Available [facility] (Lab) [address], [place], [address], 04/04/2025 04:39:51 04/03/2004/03/2025 CBC W/DIF F absolute eosinophils 0.1 10'3/ uL 0.0-0. 6 Not Available [facility] (Lab) [address] [place], [address], 04/04/2025 04:39:51 04/03/2004/03/2025 CBC W/DIF F absolute basophils 0.1 10'3/ uL 0.0-0. 3 Not Available [facility] (Lab) [address], [place], [address], 04/04/2025 04:39:51 04/03/2004/03/2025 CBC W/DIF F absolute [...] Available [facility] (Lab) [address], [place], [address], 04/04/2025 04:39:51 05/02/2005/02/2025 CULTU RE: URINE result report SEE RESULT S BELOW Test: Cultu re: Urine Speci men Sourc e: Urine - Clean Catch Speci men Type: Urine Speci men Date: 1502 Resul t Date: 0404 Resul t Statu s: Final resul t Abnor mal: No Resul ting Lab: [facility] [address] [facility] [place] [address] Tel: CULTU RE ----- ----- ----- --- No growt h in 1 day (dete ction level of 10,00 0 colon ies / ml.) Not Available [facility] (Lab) [address], [place], [address], 05/04/2025 05:09:17 05/30/2005/30/2025 CBC W/DIF F WBC 11.9 10'3/ uL 3.5-10 .5 high Not Available [facility] (Lab) [address], [place], [address], 05/31/2025 12:26:07 05/30/20 25 05/30/2025 CBC W/DIF F RBC 3.98 10'6/ uL (based on docume nted legal sex) 3.80-5 .20 Not Available [facility] (Lab) [address], [place], [address], 05/31/2025 12:26:07 05/30/20 25 05/30/2025 CBC W/DIF F HGB 12.4 g/dL (based on docume nted legal sex) 11.6-1 5.4 Not Available [facility] (Lab) [address], [place], [address], 05/31/2025 12:26:07 05/30/20 25 05/30/2025 CBC W/DIF F HCT 36.8 % (based on docume nted legal sex) 34.0-4 5.0 Not Available [facility] (Lab) [address], [place], [address], 05/31/2025 12:26:07 05/30/20 25 05/30/2025 CBC W/DIF F MCV 92.5 fL 80.0-9 9.0 Not Available [facility] (Lab) [address], [place], [address], 05/31/2025 12:26:07 05/30/20 25 05/30/2025 CBC W/DIF F MCH 31.2 pg 27.0-3 4.0 Not Available [facility] (Lab) [address], [place], [address], 05/31/2025 12:26:07 05/30/20 25 05/30/2025 CBC W/DIF F MCHC 33.7 g/dL 32.0-3 5.5 Not Available [facility] (Lab) [address], [place], [address], 05/31/2025 12:26:07 05/30/20 25 05/30/2025 CBC W/DIF F RDW 13.4 % 11.0-1 5.0 Not Available [facility] (Lab) [address], [place], [address], 05/31/2025 12:26:07 05/30/20 25 05/30/2025 CBC W/DIF F plt 113 10'3/ uL 150-40 0 low Not Available [facility] (Lab) [address], [place], [address], 05/31/2025 12:26:07 05/30/20 25 05/30/2025 CBC W/DIF F MPV 13.8 fL 8.8-12 .1 high Not Available [facility] (Lab) [address], [place], [address], 05/31/2025 12:26:07 05/30/20 25 05/30/2025 CBC W/DIF F NRBC's 0.0 % 0.0 Not Available [facility] (Lab) [address], [place], [address], 05/31/2025 12:26:07 05/30/20 25 05/30/2025 CBC W/DIF F absolute NRBCs 0.0 10'3/ uL no refere nce range establ ished Not Available [facility] (Lab) [address], [place], [address], 05/31/2025 12:26:07 05/30/20 25 05/30/2025 CBC W/DIF F neutrophils 79.4 % 34.0-7 3.0 high Not Available [facility] (Lab) [address], [place], [address], 05/31/2025 12:26:07 05/30/20 25 05/30/2025 CBC W/DIF F lymphocytes 10.8 % 15.0-5 0.0 low Not Available [facility] (Lab) [address], [place], [address], 05/31/2025 12:26:07 05/30/20 25 05/30/2025 CBC W/DIF F monocytes 7.7 % 1.0-15 .0 Not Available [facility] (Lab) [address], [place], [address], 05/31/2025 12:26:07 05/30/20 25 05/30/2025 CBC W/DIF F eosinophils 0.8 % 0.0-8. 0 Not Available [facility] (Lab) [address] [place], [address], 05/31/2025 12:26:07 05/30/20 25 05/30/2025 CBC W/DIF F basophils 0.4 % 0.0-2. 0 Not Available [facility] (Lab) [address] [place], [address], 05/31/2025 12:26:07 05/30/20 25 05/30/2025 CBC W/DIF [...] Available [facility] (Lab) [address] [place], [address], 05/31/2025 12:26:07 05/30/20 25 05/30/2025 CBC W/DIF F absolute neutrophils 9.5 10'3/ uL 1.5-8. 0 high Not Available [facility] (Lab) [address], [place], [address], 05/31/2025 12:26:07 05/30/20 25 05/30/2025 CBC W/DIF F absolute lymphocytes 1.3 10'3/ uL 1.0-4. 0 Not Available [facility] (Lab) [address], [place], [address], 05/31/2025 12:26:07 05/30/20 25 05/30/2025 CBC W/DIF F absolute monocytes 0.9 10'3/ uL 0.2-1. 0 Not Available [facility] (Lab) [address], [place], [address], 05/31/2025 12:26:07 05/30/20 25 05/30/2025 CBC W/DIF F absolute eosinophils 0.1 10'3/ uL 0.0-0. 6 Not Available [facility] ([facility]) [address], [place], [address], 05/31/2025 12:26:07 05/30/20 25 05/30/2025 CBC W/DIF F absolute basophils 0.1 10'3/ uL 0.0-0. 3 Not Available [facility] ([facility]) [address], [place], [address], 05/31/2025 12:26:07 05/30/20 25 05/30/2025 CBC W/DIF [...] [facility] ([facility]) [address] [place], [address], 05/31/2025 12:26:07 05/30/20 25 05/30/2025 HIV 1/2 ANTIG EN/AN TIBOD Y, REFLE X CONFI RMATI ON HIV antigen/anti body Nonrea ctive nonrea ctive HIV-1 antig en and HIV-1 /HIV- 2 antib odies were not detec alfredo. No labor atory evide nce of HIV infec tion. Not Available [facility] (Lab) [address], [place], [address], 05/31/2025 12:26:07 05/30/20 25 05/30/2025 GTT - GESTA REGAN L SCREE N, ACOG OB glucose, 1 hour screen 82 mg/dL 70-135 Not Available [facility] (Lab) [address], [place], [address], 05/31/2025 12:26:08 05/30/20 25 05/30/2025 RPR SCREE N, REFLE X TITER /CONF IRMAT ION RPR qualitative Nonrea ctive nonrea ctive Not Available [facility] (Lab) [address], [place], [address], 05/31/2025 12:26:08 06/30/20 25 06/30/2025 CBC W/DIF F WBC 11.6 10'3/ uL 3.5-10 .5 high Not Available [facility] (Lab) [address], [place], [address], 07/01/2025 02:43:32 06/30/20 25 06/30/2025 CBC W/DIF F RBC 3.97 10'6/ uL (based on docume nted legal sex) 3.80-5 .20 Not Available [facility] (Lab) [address], [place], [address], 07/01/2025 02:43:32 06/30/20 25 06/30/2025 CBC W/DIF F HGB 12.4 g/dL (based on docume nted legal sex) 11.6-1 5.4 Not Available [facility] (Lab) [address], [place], [address], 07/01/2025 02:43:32 06/30/20 25 06/30/2025 CBC W/DIF F HCT 35.3 % (based on docume nted legal sex) 34.0-4 5.0 Not Available [facility] (Lab) [address], [place], [address], 07/01/2025 02:43:32 06/30/20 25 06/30/2025 CBC W/DIF F MCV 88.9 fL 80.0-9 9.0 Not Available [facility] (Lab) [address], [place], [address], 07/01/2025 02:43:32 06/30/20 25 06/30/2025 CBC W/DIF F MCH 31.2 pg 27.0-3 4.0 Not Available [facility] (Lab) [address], [place], [address], 07/01/2025 02:43:32 06/30/20 25 06/30/2025 CBC W/DIF F MCHC 35.1 g/dL 32.0-3 5.5 Not Available [facility] (Lab) [address], [place], [address], 07/01/2025 02:43:32 06/30/20 25 06/30/2025 CBC W/DIF F RDW 13.2 % 11.0-1 5.0 Not Available [facility] (Lab) [address], [place], [address], 07/01/2025 02:43:32 06/30/20 25 06/30/2025 CBC W/DIF F plt 106 10'3/ uL 150-40 0 low Not Available [facility] (Lab) [address] [facility], [place], [address], 07/01/2025 02:43:32 06/30/20 25 06/30/2025 CBC W/DIF F MPV 13.2 fL 8.8-12 .1 high Not Available [facility] (Lab) [address] [facility], [place], [address], 07/01/2025 02:43:32 06/30/20 25 06/30/2025 CBC W/DIF F NRBC's 0.0 % 0.0 Not Available [facility] (Lab) [address], [place], [address], 07/01/2025 02:43:32 06/30/20 25 06/30/2025 CBC W/DIF F absolute NRBCs 0.0 10'3/ uL no refere nce range establ ished Not Available [facility] (Lab) [address], [place], [address], 07/01/2025 02:43:32 06/30/20 25 06/30/2025 CBC W/DIF F neutrophils 77.2 % 34.0-7 3.0 high Not Available [facility] (Lab) [address], [place], [address], 07/01/2025 02:43:32 06/30/20 25 06/30/2025 CBC W/DIF F lymphocytes 13.2 % 15.0-5 0.0 low Not Available [facility] (Lab) [address], [place], [address], 07/01/2025 02:43:32 06/30/20 25 06/30/2025 CBC W/DIF F monocytes 7.5 % 1.0-15 .0 Not Available [facility] (Lab) [address] [place], [address], 07/01/2025 02:43:32 06/30/20 25 06/30/2025 CBC W/DIF F eosinophils 0.9 % 0.0-8. 0 Not Available [facility] (Lab) [address], [place], [address], 07/01/2025 02:43:32 06/30/20 25 06/30/2025 CBC W/DIF F basophils 0.4 % 0.0-2. 0 Not Available [facility] (Lab) [address], [place], [address], 07/01/2025 02:43:32 06/30/20 25 06/30/2025 CBC W/DIF [...] Available [facility] (Lab) [address], [place], [address], 07/01/2025 02:43:32 06/30/20 25 06/30/2025 CBC W/DIF F absolute neutrophils 8.9 10'3/ uL 1.5-8. 0 high Not Available [facility] (Lab) [address], [place], [address], 07/01/2025 02:43:32 06/30/20 25 06/30/2025 CBC W/DIF F absolute lymphocytes 1.5 10'3/ uL 1.0-4. 0 Not Available [facility] (Lab) [address], [place], [address], 07/01/2025 02:43:32 06/30/20 25 06/30/2025 CBC W/DIF F absolute monocytes 0.9 10'3/ uL 0.2-1. 0 Not Available [facility] (Lab) [address], [place], [address], 07/01/2025 02:43:32 06/30/20 25 06/30/2025 CBC W/DIF F absolute eosinophils 0.1 10'3/ uL 0.0-0. 6 Not Available [facility] (Lab) [address], [place], [address], 07/01/2025 02:43:32 06/30/20 25 06/30/2025 CBC W/DIF F absolute basophils 0.1 10'3/ uL 0.0-0. 3 Not Available [facility] (Lab) [address], [place], [address], 07/01/2025 02:43:32 06/30/20 25 06/30/2025 CBC W/DIF [...] [facility] (Lab) [address], [place], [address], 07/01/2025 02:43:32 07/12/20 25 07/12/2025 CBC W/DIF F WBC 13.2 10'3/ uL 3.5-10 .5 high Not Available [facility] (Lab) [address], [place], [address], 07/13/2025 05:59:18 07/12/20 25 07/12/2025 CBC W/DIF F RBC 3.94 10'6/ uL (based on docume nted legal sex) 3.80-5 .20 Not Available [facility] (Lab) [address], [place], [address], 07/13/2025 05:59:18 07/12/20 25 07/12/2025 CBC W/DIF F HGB 11.9 g/dL (based on docume nted legal sex) 11.6-1 5.4 Not Available [facility] (Lab) [address], [place], [address], 07/13/2025 05:59:18 07/12/20 25 07/12/2025 CBC W/DIF F HCT 34.9 % (based on docume nted legal sex) 34.0-4 5.0 Not Available [facility] (Lab) [address], [place], [address], 07/13/2025 05:59:18 07/12/20 25 07/12/2025 CBC W/DIF F MCV 88.6 fL 80.0-9 9.0 Not Available [facility] (Lab) [address], [place], [address], 07/13/2025 05:59:18 07/12/20 25 07/12/2025 CBC W/DIF F MCH 30.2 pg 27.0-3 4.0 Not Available [facility] (Lab) [address], [place], [address], 07/13/2025 05:59:18 07/12/20 25 07/12/2025 CBC W/DIF F MCHC 34.1 g/dL 32.0-3 5.5 Not Available [facility] (Lab) [address], [place], [address], 07/13/2025 05:59:18 07/12/20 25 07/12/2025 CBC W/DIF F RDW 13.0 % 11.0-1 5.0 Not Available [facility] (Lab) [address], [place], [address], 07/13/2025 05:59:18 11/12/20 25 07/12/2025 CBC W/DIF F plt 110 10'3/ uL 150-40 0 low Not Available [facility] (Lab) [address], [place], [address], 07/13/2025 05:59:18 07/12/20 25 07/12/2025 CBC W/DIF F MPV 12.9 fL 8.8-12 .1 high Not Available [facility] (Lab) [address], [place], [address], 07/13/2025 05:59:18 07/12/20 25 07/12/2025 CBC W/DIF F NRBC's 0.0 % 0.0 Not Available [facility] (Lab) [address], [place], [address], 07/13/2025 05:59:18 07/12/20 25 07/12/2025 CBC W/DIF F absolute NRBCs 0.0 10'3/ uL no refere nce range establ ished Not Available [facility] (Lab) [address], [place], [address], 07/13/2025 05:59:18 07/12/20 25 07/12/2025 CBC W/DIF F neutrophils 75.1 % 34.0-7 3.0 high Not Available [facility] (Lab) [address], [place], [address], 07/13/2025 05:59:18 07/12/20 25 07/12/2025 CBC W/DIF F lymphocytes 12.6 % 15.0-5 0.0 low Not Available [facility] (Lab) [address], [place], [address], 07/13/2025 05:59:18 07/12/20 25 07/12/2025 CBC W/DIF F monocytes 9.7 % 1.0-15 .0 Not Available [facility] (Lab) [address], [place], [address], 07/13/2025 05:59:18 07/12/20 25 07/12/2025 CBC W/DIF F eosinophils 0.9 % 0.0-8. 0 Not Available [facility] (Lab) [address], [place], [address], 07/13/2025 05:59:18 07/12/20 25 07/12/2025 CBC W/DIF F basophils 0.5 % 0.0-2. 0 Not Available [facility] (Lab) [address], [place], [address], 07/13/2025 05:59:18 07/12/20 25 07/12/2025 CBC W/DIF [...] Medical Center (Lab) [address], [place], [address], 07/13/2025 05:59:18 07/12/20 25 07/12/2025 CBC W/DIF F absolute neutrophils 9.9 10'3/ uL 1.5-8. 0 high Not Available [facility] (Lab) [address], [place], [address], 07/13/2025 05:59:18 07/12/20 25 07/12/2025 CBC W/DIF F absolute lymphocytes 1.7 10'3/ uL 1.0-4. 0 Not Available [facility] (Lab) [address], [place], [address], 07/13/2025 05:59:18 07/12/20 25 07/12/2025 CBC W/DIF F absolute monocytes 1.3 10'3/ uL 0.2-1. 0 high Not Available [facility] (Lab) [address], [place], [address], 07/13/2025 05:59:18 07/12/20 25 07/12/2025 CBC W/DIF F absolute eosinophils 0.1 10'3/ uL 0.0-0. 6 Not Available [facility] (Lab) [address], [place], [address], 07/13/2025 05:59:18 07/12/20 25 07/12/2025 CBC W/DIF F absolute basophils 0.1 10'3/ uL 0.0-0. 3 Not Available [facility] (Lab) [address], [place], [address], 07/13/2025 05:59:18 07/12/20 25 07/12/2025 CBC W/DIF [...] [facility] Center (Lab) [address], [place], [address], 07/13/2025 05:59:18 07/24/20 25 07/24/2025 CBC W/DIF F WBC 14.4 10'3/ uL 3.5-10 .5 high Not Available [facility] (Lab) [address], [place], [address], 2025 04:12:09 07/24/20 25 07/24/2025 CBC W/DIF F RBC 4.15 10'6/ uL (based on docume nted legal sex) 3.80-5 .20 Not Available [facility] (Lab) [address], [place], [address], 2025 04:12:09 07/24/2007/24/2025 CBC W/DIF F HGB 12.8 g/dL (based on docume nted legal sex) 11.6-1 5.4 Not Available [facility] (Lab) [address], [place], [address], 2025 04:12:09 07/24/20 25 07/24/2025 CBC W/DIF F HCT 37.2 % (based on docume nted legal sex) 34.0-4 5.0 Not Available [facility] (Lab) [address], [place], [address], 2025 04:12:09 07/24/2007/24/2025 CBC W/DIF F MCV 89.6 fL 80.0-9 9.0 Not Available [facility] (Lab) [address], [place], [address], 2025 04:12:09 07/24/2007/24/2025 CBC W/DIF F MCH 30.8 pg 27.0-3 4.0 Not Available [facility] (Lab) [address], [place], [address], 2025 04:12:09 07/24/2007/24/2025 CBC W/DIF F MCHC 34.4 g/dL 32.0-3 5.5 Not Available [facility] (Lab) [address], [place], [address], 2025 04:12:09 07/24/2007/24/2025 CBC W/DIF F RDW 14.1 % 11.0-1 5.0 Not Available [facility] (Lab) [address], [place], [address], 2025 04:12:09 07/24/2007/24/2025 CBC W/DIF F plt 115 10'3/ uL 150-40 0 low Not Available [facility] (Lab) [address], [place], [address], 2025 04:12:09 07/24/20 25 07/24/2025 CBC W/DIF F MPV 13.3 fL 8.8-12 .1 high Not Available [facility] (Lab) [address], [place], [address], 2025 04:12:09 07/24/20 25 07/24/2025 CBC W/DIF F NRBC's 0.0 % 0.0 Not Available [facility] (Lab) [address], [place], [address], 2025 04:12:09 07/24/20 25 07/24/2025 CBC W/DIF F absolute NRBCs 0.0 10'3/ uL no refere nce range establ ished Not Available [facility] (Lab) [address], [place], [address], 2025 04:12:09 07/24/20 25 07/24/2025 CBC W/DIF F neutrophils 75.6 % 34.0-7 3.0 high Not Available [facility] (Lab) [address], [place], [address], 2025 04:12:09 07/24/20 25 07/24/2025 CBC W/DIF F lymphocytes 12.3 % 15.0-5 0.0 low Not Available [facility] (Lab) [address] [place], [address], 2025 04:12:09 07/24/20 25 07/24/2025 CBC W/DIF F monocytes 9.3 % 1.0-15 .0 Not Available [facility] (Lab) [address] [place], [address], 2025 04:12:09 07/24/20 25 07/24/2025 CBC W/DIF F eosinophils 0.6 % 0.0-8. 0 Not Available [facility] (Lab) [address], [place], [address], 2025 04:12:09 07/24/20 25 07/24/2025 CBC W/DIF F basophils 0.5 % 0.0-2. 0 Not Available [facility] (Lab) [address], [place], [address], 2025 04:12:09 07/24/20 25 07/24/2025 CBC W/DIF [...] Available [facility] (Lab) [address], [place], [address], 2025 04:12:09 07/24/20 25 07/24/2025 CBC W/DIF F absolute neutrophils 10.8 10'3/ uL 1.5-8. 0 high Not Available [facility] (Lab) [address], [place], [address], 2025 04:12:09 07/24/20 25 07/24/2025 CBC W/DIF F absolute lymphocytes 1.8 10'3/ uL 1.0-4. 0 Not Available [facility] (Lab) [address] [place], [address], 2025 04:12:09 07/24/20 25 07/24/2025 CBC W/DIF F absolute monocytes 1.3 10'3/ uL 0.2-1. 0 high Not Available [facility] (Lab) [address], [place], [address], 2025 04:12:09 07/24/20 25 07/24/2025 CBC W/DIF F absolute eosinophils 0.1 10'3/ uL 0.0-0. 6 Not Available [facility] (Lab) [address] [place], [address], 2025 04:12:09 07/24/20 25 07/24/2025 CBC W/DIF F absolute basophils 0.1 10'3/ uL 0.0-0. 3 Not Available [facility] (Lab) [address], [place], [address], 2025 04:12:09 07/24/2007/24/2025 CBC W/DIF F absolute [...] Available [facility] (Lab) [address] [place], [address], 2025 04:12:09 07/24/2007/24/2025 CULTU RE: GROUP B [...] Resul ting Lab: [facility] [address] [facility] [address] Tel: CULTU RE ----- ----- ----- --- No Group B strep isola alfredo at 2 days (lisa ctive broth cristopher cemen t) Not Available [facility] (Lab) [address], [place], [address], 07/27/2025 18:44:14 02/11/20 25 02/10/2025 US, obste tric, nucha l trans lucen cy No observ ation record ed. [facility] [address], [place], [address], 02/10/2025 18:38:42 02/11/20 25 02/10/2025 US, obste tric, follo w-up No observ ation record ed. [email or web address] [address] [address], [place], [address], 02/13/2025 09:20:03 04/03/20 25 04/03/2025 US, obste tric, 2nd or 3rd trime ster No observ ation record ed. [email or web address] [place] [address], [place], [address], 04/03/2025 18:43:20 04/03/20 25 04/03/2025 US, obste tric, 2nd or 3rd trime ster No observ ation record ed. [email or web address] [place] [address], [place], [address], 04/05/2025 17:47:52 04/21/2004/21/2025 non-s tress test No observ ation record ed. [address], [place], [address], 04/24/2025 12:03:28 05/02/20 25 05/02/2025 US, obste tric, follo w-up No observ ation record ed. [facility] [address], [place], [address], 05/02/2025 12:58:26 05/02/20 25 05/02/2025 US, obste tric, follo w-up No observ ation record ed. ROBERT Leyva [address], [place], [address], 05/03/2025 18:13:01 05/29/20 25 05/29/2025 non-s tress test No observ ation record ed. [address], [address], 05/31/2025 15:39:22 06/20/20 25 06/20/2025 imagi ng/di agnos tic resul t No observ ation record ed. [facility] [place], [address], 06/20/2025 13:33:45 06/20/20 25 06/20/2025 US, obste tric, follo w-up No observ ation record ed. [address] [facility] [address] [place], [address], 06/27/2025 17:32:46 07/03/20 25 07/03/2025 non-s tress test No observ ation record ed. [address] [address], [place], [address], 07/19/2025 15:34:42 07/03/20 25 07/03/2025 imagi ng/di agnos tic resul t No observ ation record ed. [address] [address], [place], [address], 07/03/2025 11:55:37 07/26/20 25 07/26/2025 imagi ng/di agnos tic resul t No observ ation record ed. [facility] [address], [place], [address], 07/26/2025 18:39:01 07/26/2007/26/2025 imagi ng/di agnos tic resul t No observ ation record ed. [facility] [place] [address] [place], [address], 07/26/2025 18:39:01 07/26/20 25 07/26/2025 imagi ng/di agnos tic resul t No observ ation record ed. [facility] [place] [address] [place] [address], [address], 07/26/2025 18:39:01 08/14/20 25 08/14/2025 imagi ng/di agnos tic resul t No observ ation record ed. [facility] [address], [address], 08/14/2025 09:43:44 08/14/20 25 08/14/2025 imagi ng/di agnos tic resul t No observ ation record ed. [facility] [place] [address] [place] [address], [address], 08/14/2025 14:53:30 Result Notes None recorded. Problems Name Problem SNOMED Code Status Onset Date Resolution Date Notes Provider Name and Address Organization Details Recorded Time Anxiety 71806647 Active 2024 Kristen sánchez [facility] 11:01:06 68222685 Active 2024 Aleah sánchez [facility] 11:57:32 Platelet count below reference range 712278539 Active 2024 Referral faxed to [facility] 06/01 scheduled 06/20 0900 Level II us and consult Zoey sánchez [facility] 11:50:53 Problem Notes None recorded. Procedures Surgical History Date Name Laterality Status Provider Name and Address Organization Details Recorded Time 5 Date of Last Pap Smear completed Kristen Ruffin [facility] 01/13/2025 11:01:13 7 operative procedure on wrist completed Aleah Bedolla [facility] 02/10/2025 11:57:07 Imaging Results None [...] Updated DateTime 07/24/2025 170.18 cm 29.1 kg/m2 84764.18 g 139/81 mm[Hg] Isabel Romero [facility] 07/24/2025 11:31:16 Social History Question Answer Notes LastModified by Organizat ion Details LastModified Time Tobacco Smoking Status Never Smoker Kristen sácnhez, [facility] 01/13/2025 11:05:22 If You Are , What Was Your Level Of Alcohol Consumption Prior To ? Occasional [email or web address] Information not available 01/13/2025 Are You Blind Or Do You Have Difficulty Seeing? No [email or web address] Information n ot available 01/13/2025 What Is Your Level Of Caffeine Consumption? Occasional [email or web address] Information not available 01/13/2025 In The 14 Days Before Symptom Onset, Have You Had Close Contact With A Laboratory-confirm ed COVID-19 While That Case Was Ill? No [email or web address] Information n ot available 01/13/2025 In The 14 Days Before Symptom Onset, Have You Had Close Contact With A Person Who Is Under Investigation For COVID-19 While That Person Was Ill? No [email or web address] Information not available 01/13/2025 Have You Been To An Area Known To Be High Risk For COVID-19? No [email or web address] Information not available 01/13/2025 Are You Deaf Or Do You Have Serious Difficulty Hearing? No [email or web address] Information not available 01/13/2025 Do You Have Smoke And Carbon Monoxide Detectors In Your Home? Yes [email or web address] Information not available 01/13/2025 Do You Use Sunscreen Routinely? Yes [email or web address] Information not available 01/13/2025 Has Tobacco Cessation Counseling Been Provided? No [email or web address] Information not available 01/13/2025 Have You Used IV Drugs? No Information not available 01/13/2025 Do You Have Difficulty Walking Or Climbing Stairs? No [email or web address] Information not available 01/13/2025 Sex: Unknown Functional Status Question Answer Note LastModified by Organizat ion Details LastModified Time Do you use any illicit or recreational drugs? No [email or web address] Information not available 01/13/2025 Do you or have you ever used any other forms of tobacco or nicotine? Yes [email or web address] Information not available 01/13/2025 What is your level of alcohol consumption? None [email or web address] Information not available 01/13/2025 Are you able to walk independently without assistance or assistive devices? [email or web address] Information not available 01/13/2025 Are you able to care for yourself independently? Yes [email or web address] Information not available 01/13/2025 Do you have difficulty dressing, bathing, grooming, or toileting? No [email or web address] Information not available 01/13/2025 Do you or have you ever used e-cigarettes or vape? Former user of electronic cigarettes [email or web address] Information not available 01/13/2025 Mental Status None recorded. Family History Relationship Description Onset Age of this Age Resolved Age Notes LastModified by Organization Details LastModified Time Unspecified Relation Family history unknown [email or web address] Not available 2024 13:48:03 Paternal Grandfather Malignant neoplasm of prostate [email or web address] Not available 07/31 15:39:21 Maternal Grandfather Malignant neoplasm of lung [email or web address] Not available 01/13 11:03:40 Maternal Grandmother Malignant neoplasm of pancreas [email or web address] Not available 07/31 15:39:21 Maternal Aunt Malignant neoplasm of breast Not available 2024 13:48:03 Father Leukemia [email or web address] Not availa ble 08/10/2025 15:39:21 Mother Diabetes mellitus [email or web address] Not available 01/13 11:04:57 Medical History Condition [...] ICD10 Code Diagnosis IMO Codes Diagnosis Note [id number] JOLIE TOMLINSON MD [place] [address] [address] 06/30/2025 11:40:05 06/30/2025 12:44:02 Platelet count below reference range 105874189 D69.6 69346125 - plt 125>131>11 3- MFM consult Gestation period, 32 weeks 3670787 Z3A.32 7292244 - continue PNV [id number] MD Jayjay HALE [address] [address] 07/12/2025 13:47:56 07/14/2025 11:51:27 Thrombocytopenic disorder 066396020 D69.6 58643 - plt 125>131>77 - repeat today- MFM consult Gestation period, 34 weeks 83959325 Z3A.34 2940246 - continue PNV [id number] JOLIE TOMLINSON MD [place] [address] [address] 07/24/2025 11:18:52 07/24/2025 12:20:34 Thrombocytopenic disorder 018771809 D69.6 79039 - plt 125>131>77 >110- repeat today- MFM consult Gestation period, 36 weeks 66193108 Z3A.36 [id number] Health Concerns Section Related Observation LastModified by Organization Detai ls LastModified Time None Recorded Concern Status LastModified by Organization Details LastModified Time None Recorded Payers Encounter Date Sequence Insurance Name Policy Number Policy Marie Covered Member ID Marie Member ID Guarantor Name 07/24/2025 1 [facility] (PP[facility]) [id number] Kya Angulo [id number] Kya Angulo 07/24/2025 [facility] ON OR AFTER 02/28/21 (MEDICAID REPLACEMENT - HMO) Gabby Jose [id number] Kya Angulo Notes Date Note Type Note Provider Name and Address Organization Details Recorded Time 07/24/2025 text/html Generic HPI TemplateReported by Patient JOLIE TOMLINSON MD [address], [place], [address], [facility] 07/24/2025 12:15:12 OBGyn Episode Ob Episode Information Episode Created Date Number of Fetuses Patient Bloodtype Patient rh Status Prepregnancy Weight lbs Domestic Partner Domestic Partner Phone Father Name Gunite Nozzle Operator Status 02/11/20 25 1 O Positive 150 Jovany Juwan OPEN Fetus Data First Name Last Name Admitted to NICU Weight (g) Sex Living Outcome Pediatric Complications Fetus ID Race Codes Race Delivery Type [id number] Problems Problem Notes RSV vaccine received 07/04/25 . Problem Name Start Date End Date Resolution Snomed Code Not e Platelet count below reference range 06/01/2025 [id number] Referral fax ed to [facility] Jayjay 06/01 scheduled 06/20 0900 Level II us [...] Date Ultra Sound Latest Days Gestation 0 [email or web address] 02/10/2025 08/21/20 25 0 Pre- Flowsheet Flowsheet Date 02/10/2025 [place] Score Blood Edema Fundus Height Fundus Units Glucose Ketones Leukocytes Nitrite Labor Signs Protein Cervic Dilation Cervic Effacement Cervic Station Type Weight in lbs Pre/Post Dialysis Refused Weight 153.906548210920 BP Diastolic BP Location Tested BP Systolic BP Type 77 L arm 122 sitting Fetus Heart Rate Present A Present Fetus Movement Comments Patient presents to [facility] care. otherwise uncomplicated. No bleeding or [...] Weight in lbs Pre/Post Dialysis Refused Weight 156.584691021925 BP Diastolic BP Location Tested BP Systolic [...] Weight in lbs Pre/Post Dialysis Refused Weight 160.092501501544 BP Diastolic BP Location Tested BP Systolic [...] Weight in lbs Pre/Post Dialysis Refused Weight 165.725261413815 BP Diastolic BP Location Tested BP Systolic [...] Type Weight in lbs Pre/Post Dialysis Refused 176.902695527706 BP Diastolic BP Location Tested BP Systolic BP Type 78 L arm 118 sitting Fetus Heart Rate Present A 150 Fetus Movement A Yes Comments Had an episode of DFM yester day, went to [facility] and had negative workup. No cramping or bleeding. GCT and labs today, will draw CBC as well. Discussed Tdap, RSV, and flu vaccines. RTC 2 weeks. Flowsheet Date 06/13/2025 Kirkland Score Blood Edema Fundus Height Fundus Units Glucose Ketones Leukocytes Nitrite Labor Signs Protein Cervic Dilation Cervic Effacement Cervic Station Type Weight in lbs Pre/Post Dialysis Refused 181.509588946111 BP Diastolic BP Location Tested BP Systolic [...] Weight in lbs Pre/Post Dialysis Refused Weight 178.210251193781 BP Diastolic BP Location Tested BP Systolic BP Type 78 L arm 112 sitting Fetus Heart Rate Present A 140 Fetus Movement A Yes Comments Good movement. No cram ping or bleeding. Saw MFM, recommend platelet counts every visit. [employer] appointment next week to determine if autoimmune vs gestational. EFW 92%, AC 93%; discussed 39 week induction, plan for 12/15 PM. Preadmission scheduled. RSV vaccine discussed. RTC 2 weeks. Flowsheet Date 07/12/2025 Kirkland Score Blood Edema Fundus Height Fundus Units Glucose Ketones Leukocytes Nitrite Labor Signs Protein Cervic Dilation Cervic Effacement Cervic Station Type Weight in lbs Pre/Post Dialysis Refused Weight 185.749663131361 BP Diastolic BP Location Tested BP Systolic [...] Weight in lbs Pre/Post Dialysis Refused Weight 186.220490837734 BP Diastolic BP Location Tested BP Systolic [...] Weight in lbs Pre/Post Dialysis Refused Weight 187.578766307558 BP Diastolic BP Location Tested BP Systolic [...] Weight in lbs Pre/Post Dialysis Refused Weight 189.985763044917 BP Diastolic BP Location Tested BP Systolic [...]
--- NOTE | 2025-08-14 18:10 | WPDANESEPP ---
Anes - Eval Pre Procedure Procedure: Labor epidural Date/Time: 08/14/25 18:10 Surgeon: Elbert Preop Diagnosis: Abdominal pain with contractions Pre Op Diagnosis: iol Patient Data Age: 25 Gender: F Height: 1.73 m Weight: 85 kg Last Vital Signs Pulse 93 08/14/25 18:01 BP 109/77 08/14/25 18:01 O2 Del Method Room Air 08/14/25 16:18 Allergies Allergy/AdvReac Type Severity Reaction Status Date / Time Penicillins AdvReac Hives Verified 08/14/25 16:19 Home Medications ?Medication ?Instructions ?Recorded ?Confirmed ?Type cyanocobalamin (vitamin B-12) 1,000 mcg IM WEEKLY 07/18/25 07/26/25 History 1,000 mcg/mL injection kit vit with calcium-iron 1 tablet PO DAILY 07/18/25 07/26/25 History fum-folic acid 60 mg-0.8 mg tablet Laboratory Tests 08/14/25 16:09 WBC 11.5 H K/mm3 (4.5-10.0) RBC 4.35 M/mm3 (4.2-5.4) Hgb 13.8 g/dL (12.0-15.0) Hct 38.8 % (37.0-47.0) MCV 89.2 fl (80-100) MCH 31.7 pg (26-34) MCHC 35.6 g/dl (32-36) RDW 13.8 % (11.5-14.5) Plt Count 108 L k/mm3 (150-375) MPV 12.8 H fl (7.4-10.4) Immature Gran % (Auto) 1.0 H % (0-0.5) Neut % (Auto) 76.4 H % (45.5-73.1) Lymph % (Auto) 14.5 L % (18.3-44.2) Orange % (Auto) 7.3 % (2.6-8.5) Eos % (Auto) 0.6 % (0-4.4) Baso % (Auto) 0.2 % (0.2-1.2) Lymph # (Auto) 1.66 K/mm3 (0.9-3.2) Orange # (Auto) 0.8 H K/mm3 (0.1-0.6) Eos # (Auto) 0.1 K/mm3 (0-0.3) Baso # (Auto) 0.0 K/mm3 (0.0-0.1) Abs Immat Gran (auto) 0.12 H K/mm3 (0.00-0.031) Absolute Neuts (auto) 8.8 H K/mm3 (1.3-6.7) Absolute Nucleated RBC 0.000 K/mm3 (0.0-0.012) Nucleated RBC % 0.0 % (0.0-0.2) Syphilis IgG/IgM Ab Non-reactive (Nonreactive) Blood Type O Positive Antibody Screen Negative : gestational age HCG: positive Patient hx anesthesia problems: none Family hx anesthesia problems: none Results Review: All pre-operative results and documents have been reviewed as part of the pre-operative evaluation. [facility] Past Medical History Medical History Tachyarrhythmia Overweight (BMI 25.0-29.9) IBS (irritable bowel syndrome) Anxiety Depression Acne Ganglion cyst of dorsum of left wrist Surgical History Surgical History No pertinent past surgical history Family History Family History (Updated 07/26/25 @ 14:20 by Mirta Broderick RN) Other Breast cancer Father Leukemia Grandparent Malignant neoplasm of prostate Cerebrovascular accident Grandparent Pancreatic cancer metastasized to intra-abdominal lymph node Social History Social History Smoking status: Never smoker Second hand tobacco smoke exposure: No Alcohol intake: never Substance use: never Substance use type: does not use Lack of Transportation: No Lack of Food: Never True Current Housing: I Have Housing Concerned About Future Housing: No Difficulty Paying Gas/Electric Bills: No Difficulty Paying for Meds: No Currently Unemployed: No Education: Grade School Difficulty w/ Childcare or Family Care: No Living arrangements: with family Occupation/Education: 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
[2025-08-14] MEDS: LACTATED RINGERS 1,000 ML 125 ML IV CONT (22:45)
[2025-08-15] VITALS (175 sets, daily range): BP systolic 71–138; BP diastolic 43–84; PULSE 63–200; RESP 16–18; TEMP 36.4–37.2; O2SAT 89–100
[2025-08-15] MEDS: LACTATED RINGERS 1,000 ML 125 ML IV CONT ×2 (01:30→06:02)
[2025-08-15] MEDS: FAMOTIDINE 20 MG/2 ML VIAL IV PUSH (02:30)
[2025-08-15] MEDS: ONDANSETRON INJ 4 MG/2 ML VIAL IV PUSH ×2 (02:30→09:14)
[2025-08-15] MEDS: OXYTOCIN 30 UNITS/NS 500 ML 30 UNITS/500 ML BAG IV CONT (03:10)
--- NOTE | 2025-08-15 08:51 | WPDOBADMIT ---
Obstetrics - Admit Note Admission Note: record reviewed. No pertinent additions to the history and/or any subsequent changes in the physical findings that are not consistent with the expected course of the were found. Patient admitted for elective induction of labor. complicated by thrombocytopenia, unclear if gestational vs ITP. Plt stable at 107 on admission. SVE 5/-1, AROM of clear fluid. Pitocin per protocol Additions to the history and/or subsequent changes in the physical findings follow. None.
[2025-08-15] MEDS: OXYTOCIN 30 UNITS/NS 500 ML 30 UNITS/500 ML BAG 125 UNITS IV CONT (11:12)
--- NOTE | 2025-08-15 11:21 | PM.OBPRVD ---
OB - Vaginal Delivery Note Procedure Delivery date: 08/15/25 Events: Elective Induction of Labor and Other (thrombocytopenia) Induction method: Per Misoprostol Protocol Delivery augmentation: Rupture of Membranes and Pitocin Delivery monitor: External FHT and External Uterine Route of delivery: Episiotomy description: None Laceration Description: Perineal - 1st Degree Delivery repair: vicryl Specimen: No Quantitative Blood Loss (ml): 100 Anesthesia type: Epidural Disposition: Floor Complications: No immediate complications Narrative: See H&P and notes for details on patient's admission and labor. She progressed to complete cervical dilation and at the appropriate time began pushing. With adequate expulsive efforts by the mother, the baby's head was delivered without difficulty. Nuchal cord was not present. The baby's right shoulder was anterior and delivered under the pubic symphysis without difficulty. The posterior shoulder and the rest of the baby delivered without difficulty. The umbilical cord was doubly clamped and cut after 60 seconds of delayed cord clamping. Care of the infant was then assumed by the nursing staff. Baby Date of : 08/15/25 Time of : 10:38 Gestational Age by Date: 40 gender: Male presentation: vertex position: Left Occiput Anterior Placenta delivery description: Expressed Cord Vessel Description: 3 Vessels and Delayed Cord Clamping
[2025-08-15] MEDS: WITCH HAZEL 40 PADS 1 PAD TOPICAL (12:42)
[2025-08-15] MEDS: BENZOCAINE 20% AER SPR (*SP) 56 GM CAN 1 SPRAY TOPICAL (12:42)
[2025-08-15] MEDS: IBUPROFEN 600 MG TABLET PO ×2 (12:42→19:48)
--- NOTE | 2025-08-15 13:22 | OBPPTRN ---
Patient transferred to post room #288 via wheelchair. Support person present. Oriented to unit, room, information board, rooming in, admission packet and security measures. Patient verbalizes understanding.
--- NOTE | 2025-08-15 14:12 | PC.NURSE ---
Consulted with patient to assess needs related to . Discussed with mother her successes, concerns and any questions she has. We reviewed working with the , supporting breast, protecting her nipples with an optimal deep latch, good positioning, and good hand washing. Encouraged understanding the benefits of skin to skin, responding to feeding cues, frequencies of feeding 8-12 times in 24 hours (approximately 2-3 hours), duration of feedings, milk production, intake/output feeding sheet and signs of adequate intake encouraging swallowing at the breast. Reviewed positioning and alignment, supporting breast, off-centered (asymmetrical latch) and leading with the chin with big, open, wide gape. latched optimally to the [right] breast in [cross cradle] position. Education given to the mother of how to visualize the suckling (with good rocking jaw motion) swallows (dropping of the lower jaw) and how to listen for drinking at the breast (the ka sound). The was [able] to maintain latch without discomfort to mother. Nipple care reviewed with optimal latch, good positioning and using clean hands when touching her breast. Resources used to facilitate learning were used from the [visual handouts/ tool/mom and baby guide]. Mother voiced understanding of the education shared, to call for assistance if the does not latch or if there is discomfort with . Reported to the Primary RN.
[2025-08-15] MEDS: ACETAMINOPHEN 325 MG TABLET 650 MG PO (17:10)
[2025-08-16] MEDS: IBUPROFEN 600 MG TABLET PO ×3 (04:05→22:28)
[2025-08-16 04:45] VITALS: BP 120/78; PULSE 72; RESP 16; TEMP 37.1; O2SAT 98
[2025-08-16 05:23] LABS: Hematocrit 36.4 % (37.0-47.0); Hemoglobin 12.5 g/dL (12.0-15.0)
[2025-08-16] MEDS: ACETAMINOPHEN 325 MG TABLET 650 MG PO (07:52)
[2025-08-16 08:04] VITALS: BP 111/63; PULSE 79; RESP 14; TEMP 36.8; O2SAT 98
--- NOTE | 2025-08-16 08:13 | P.PNOB_ITS ---
OB - PN: Subj Subjective Date/time seen: 08/16/25 08:13 Interval history: pp day 1 doing well, tired OB - PN: Obj Data Labs 08/16/25 04:55 Labs: Laboratory Results - last 24 hr 08/16/25 04:55 Hgb 12.5 Hct 36.4 L OB - PN A/P Plan day: 1 Plan: routine care Time Spent With Patient Time: Total time spent is greater than 50% in coordination of care (as documented) at patient's floor/unit and/or counseling patient: Review of Systems 2 Review of Systems: All systems reviewed & are unremarkable except as noted in HPI and below Exam 2 Const: General: cooperative, healthy appearing and comfortable Chest: Chest palpation & inspection: normal inspection of the chest Resp: Effort & Inspection: normal respiratory effort
[2025-08-16] MEDS: MULTIVIT/MIN/PREN/FOL AC/IRON TABLET 1 TAB PO (10:27)
[2025-08-16] MEDS: DOCUSATE SODIUM 100 MG CAPSULE PO ×2 (10:27→16:03)
--- NOTE | 2025-08-16 11:55 | PC.NURSE ---
Mother verbalizes she is able to independently latch with appropriate positioning and alignment. She denies any nipple discomfort and is responsively . Infant is currently meeting outcomes for weight, output, jaundice, blood sugar and feeding frequencies of 8-12 times in 24 hours. Mother declines any additional assistance or education at this time. Mother is encouraged to call for assistance if her infant doesn?t latch, pain with latching, questions or concerns. Mother voiced understanding of information shared along with the mom/baby guide for an additional resource. Reported to the Primary RN.
[2025-08-16 19:05] VITALS: BP 113/74; PULSE 71; RESP 16; TEMP 36.7; O2SAT 97
[2025-08-17] MEDS: IBUPROFEN 600 MG TABLET PO (04:42)
[2025-08-17 07:40] VITALS: BP 118/78; PULSE 63; RESP 18; TEMP 36.9; O2SAT 98
[2025-08-17] MEDS: ACETAMINOPHEN 325 MG TABLET 650 MG PO (08:21)
[2025-08-17] MEDS: MULTIVIT/MIN/PREN/FOL AC/IRON TABLET 1 TAB PO (08:21)
[2025-08-17] MEDS: DOCUSATE SODIUM 100 MG CAPSULE PO (08:21)
--- NOTE | 2025-08-17 08:51 | P.PNOB_ITS ---
OB - PN: Subj Subjective Date/time seen: 08/17/25 08:52 Interval history: pp day 1 doing well, tired Patient comments: no complaints, pain well controlled and tolerating diet OB - PN: Obj Data Labs 08/16/25 04:55 OB - PN A/P Plan day: 2 Plan: routine care and discharge home Time Spent With Patient Time: Total time spent is greater than 50% in coordination of care (as documented) at patient's floor/unit and/or counseling patient: Exam 2 Const: General: comfortable and no acute distress Resp: Effort & Inspection: normal respiratory effort Auscultation: no rales, no rhonchi and no wheezes Cardio: Rate: regular rate Heart sounds: no click, no murmurs and no rubs GI: GI Palp: Yes Soft to palpation and No Tenderness to palpation present (GI) Auscultation: normal bowel sounds Extrem: General: normal to inspection, no pedal edema and no calf tenderness
--- NOTE | 2025-08-17 08:52 | PM.OBDSVD ---
DS: Admitting Diagnosis Discharge Date 08/17/2025 Admitting Diagnosis Term DS: Discharge Diagnosis Discharge Diagnosis (1) Term delivered: Code(s): O80 - Encounter for full-term uncomplicated delivery Status: Acute OB - DS: Summary OB Procedures : None OB Procedures Intrapartum: Spontaneous Vag Delivery OB Procedures: : None Peripartum Data Laceration Description: Perineal - 1st Degree Episiotomy description: None Time Spent with Patient Time attestation: Total time spent providing and/or coordinating discharge services: Discharge Plan Discharge Discharging Clinician: Hayden Steele Patient Disposition: Home Activity: pelvic rest Diet: regular Patient Instructions: Antibiotic Form Patient Language: Lithuanian Stand Alone Forms: General Discharge Information Follow-up/Referrals: Hayden Steele MD [Physician, [facility]] Discharge Medications: Continued cyanocobalamin (vitamin B-12) 1,000 mcg/mL kit 1,000 mcg IM WEEKLY Patient Comments: .. vit-iron fum-folic ac 60-0.8 mg tablet 1 tablet PO DAILY Patient Comments: . Date of admission: 08/14/25 15:37 Primary Care Provider: Ale Cueva Admitting Provider: Gilson Boswell Attending physician on admission: Gilson Boswell Condition: Stable
--- NOTE | 2025-08-17 09:19 | PC.NURSE ---
Patient viewed the discharge video Mother & Baby Care, The First Two Weeks. Patient was given the opportunity and encouraged to ask questions. Patient verbalized understanding of information shared and has been given the mother/baby guide for home reference.
--- NOTE | 2025-08-17 09:30 | PC.NURSE ---
Consulted with mother concerning needs and she shared her ability to independently latch infant optimally without pain. Per mother she also plans on pumping at least once in the morning and again in the evening. Mother is feeding appropriately for growth of infant and understands stimulating infant to eat if needed. has had appropriate feedings in the last 24 hours meets the outcomes for weight, output, blood sugar and jaundice at this time. Reinforced understanding of milk production, transition of milk, signs of adequate intake, transition of stool, prevention/relief of engorgement, plugged ducts, mastitis, responsive watching for feeding cues, the different methods of stimulating infant to breastfeed 1-3 hours after the start of the last feeding, community resources, and when to call a provider using the resource of the feeding sheet along with the mom and baby guide. Mother voiced understanding of the information shared, is confident to continue effectively her infant at home, when to call for assistance, denies any additional assistance or education at this time. Reported to the Primary RN.
[2025-08-18 11:29] VITALS: BP 124/79; PULSE 66; RESP 18; TEMP 36.7; O2SAT 100
== END 2025-08-17 11:33 | disposition home or self-care (01) | DRG 807 ==
LOC: ANHOB2 08-17 08:53 → ANHLDR 08-18 10:01 → ANHOB2 08-18 10:01
PROVIDERS: Admitting Provider Obstetrics & Gynecology; PCP Pediatrics; Visit Provider Obstetrics & Gynecology
DX: O99.12 Other diseases of the blood and blood-forming organs and certain disorders involving the immune mechanism complicating childbirth (principal); Z37.0 Single live birth; Z3A.39 39 weeks gestation of pregnancy; D69.6 Thrombocytopenia, unspecified; O70.0 First degree perineal laceration during delivery
CPT/HCPCS: 36415; 85014; 85018; 85025; 86593; 86850; 86900; 86901; A9270; J2405; J2590; J2795; J7120